=== PATIENT | male | born 1960 | race Caucasian/White ===

== ENCOUNTER 2016-11-16 15:11 | Observation (INO) ==
[2016-11-16] MEDS ORDERED: VANCOMYCIN PER PHARMACY IV ONE ×2 (15:27→19:40)
[2016-11-16] MEDS ORDERED: PIPERACILLIN SODIUM/TAZOBACTAM 4.5 GM in DEXTROSE 5% IN WATER 50 ML IV SCH ×2 (15:30→23:30)
[2016-11-16] MEDS ORDERED: VANCOMYCIN 2,000 MG in 0.9 % SODIUM CHLORIDE 500 ML IV ONE (16:00)
--- NOTE | 2016-11-16 16:05 | XRay Report ---
HISTORY: Reason for Exam:cellulitis FINDINGS: The lungs are clear. The heart size and pulmonary vascular normal. There is no pleural effusion. The right acromioclavicular joint is and there are spurs. This is a chronic stable finding. The heart is larger today than it was on 12/20/13. Current study was acquired PA and the current exam is a portable AP view which magnifies the heart. IMPRESSION: No evidence of pneumonia Interpreted and Authenticated by: Thad Levine 11/16/16
[2016-11-16 16:23] LABS: Mean Cell Volume 101.8 fL (80.0-100.0); Mean Corpuscular HGB Conc 32.4 g/dL (31.0-36.0); Platelet Count 378 K/mcL (140-440); RBC 3.53 M/mcL (4.50-5.90); Red Cell Distribution Width 14.9 % (11.5-14.5)
[2016-11-16] MEDS ORDERED: HYDROcodone/APAP 5/325MG TABLET PO ONE (16:42)
[2016-11-16 16:46] LABS: ALT/SGPT 8 U/l (0-40); Albumin 3.2 gm/dL (3.2-5.2); Albumin/Globulin Ratio 0.7 (1.0-2.3); Alkaline Phosphatase 133 U/L (39-117); Blood Urea Nitrogen 8 mg/dl (6-20); C-Reactive Protein 5.5 mg/dl (0.0-0.8)
[2016-11-16 16:54] LABS: Band Neutrophils % 1 % (0-10); Eosinophils % (Manual) 3 % (0-7); Lymphocytes % 22 % (15-49); Macrocytosis 1+ (NONE SEEN); Monocytes % (Manual) 8 % (1-9); Platelet Estimate NORMAL (NORMAL); RBC Morphology ABNORM (NORMAL); Segmented Neutrophils % 66 % (38-78)
[2016-11-16 17:01] LABS: Estimated Average Glucose(eAG) 82 mg/dL; Hemoglobin A1C 4.5 % HGB (4.0-6.0)
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
[2016-11-16] MEDS ORDERED: IOPAMIDOL 100 ML BOTTLE IV ONE (19:19)
[2016-11-16] MEDS ORDERED: BISACODYL 10 MG SUPP.RECT PR PRN (19:40)
[2016-11-16] MEDS ORDERED: ACETAMINOPHEN 325 MG TABLET PO PRN (19:40)
[2016-11-16] MEDS ORDERED: FLEETS ADULT ENEMA PR PRN (19:40)
[2016-11-16] MEDS ORDERED: MAGNESIUM HYDROXIDE 30 ML ORAL.SUSP PO PRN (19:40)
--- NOTE | 2016-11-16 19:40 | General Surgery Progress Note ---
Subjective Narrative: Note initiated : 11/16/16 at 7:37 pm Service Date, if different from initiated Date: [] Patient: Branden Espinosa 55 y/o M admitted on 11/16/16 for Pressure ulcers, Sent by wound care. Chief Complaint: [r high buttock pressure ulcer] Objective Temp Pulse Resp BP Pulse Ox 98.0 F 94 H 18 124/79 98 11/16/16 15:12 11/16/16 19:10 11/16/16 19:10 11/16/16 19:10 11/16/16 19:10 - General physical appearance obese (supermorbid obesity > 75 BMI) - Labs 11/16/16 15:25 11/16/16 15:25 Medical - PN: A/P - Time Spent With Patient Total time spent is greater than 50% in coordination of care (as documented) at patient's floor/unit and/or counseling patient: less than 15 minutes (1) Obesities, morbid Problem details: please see narrative Status: Chronic Assessment and plan: please see narrative Current Visit: Yes (2) Infected decubitus ulcer Problem details: please see narrative Status: Chronic Assessment and plan: please see narrative Current Visit: Yes - Narrative A/P Narrative: Preanesthetic evaluation: 1) This patient has a BMI >75, very little mobility. Very high risk for perioperative morbity/mortality 2) Pt requires extrawide bed. Unable to transport into OR due to narrow doorways. 3) Pt requires L lat decub positioning for surgical debridement of wound, pt refuses/is unable to lay on L side due to pressure on L chest, unclear as to exact reason (?dyspnea, chest pain, anxiety?) 4) Because pt is unable to lay on L side, it would be possible for patient to lean forward while seated to have adequate wound exposure. 5) I would recommend performing any necessary wound debridement in the patient' s room while on his specialty bed UNDER LOCAL ANESTHETIC ONLY. Outside the OR, this patient should not receive any sedation due to high risk for loss of airway. 6) If this patient is unable to tolerate debridement under local anesthesia due to pain or difficulty with positioning and requires general anesthesia, this patient should be transferred to [place] or [place] for adequate specialty equipment/facilities for the safe treatment of bariatric patients. 7) All of this has been discussed with the patient at length and in detail. He expresses understanding and agrees with my assessment and plan.
[2016-11-16] MEDS ORDERED: GABAPENTIN 300 MG CAPSULE PO PRN (21:00)
[2016-11-16] MEDS: FUROSEMIDE 40 MG TABLET PO SCH (21:42)
[2016-11-16] MEDS: CARVEDILOL 6.25 MG TABLET PO SCH (21:42)
[2016-11-16] MEDS: DOCUSATE SODIUM 100 MG CAPSULE PO SCH (21:43)
[2016-11-16] MEDS: HEPARIN 5,000 UNIT/ML VIAL SQ SCH (22:36)
[2016-11-16] MEDS ORDERED: PIPERACILLIN SODIUM/TAZOBACTAM 3.375 GM VIAL IV ONE (23:36)
[2016-11-17] MEDS: 0.9 % SODIUM CHLORIDE 10 ML SYRINGE IV SCH ×4 (00:02→23:22)
[2016-11-17] MEDS: PIPERACILLIN SODIUM/TAZOBACTAM 3.375 GM in DEXTROSE 5% IN WATER 50 ML IV SCH ×4 (00:02→17:27)
[2016-11-17 00:38] LABS: Appearance,Urine CLEAR; Bilirubin,Urine NEG (NEG); Color,Urine YELLOW; Glucose,Urine (UA) NEGATIVE (NEG); Leukocyte Esterase,Urine NEG /uL (NEG); Nitrate,Urine NEG (NEG); Protein,Urine NEG (NEG); Specific Gravity,Urine 1.018 (1.000-1.035); Urine Blood NEG mg/dL (<0.03); Urobilinogen,Urine NEG (NEG)
[2016-11-17] MEDS ORDERED: PIPERACILLIN SODIUM/TAZOBACTAM 3.375 GM VIAL IV ONE (05:52)
[2016-11-17] MEDS: VANCOMYCIN 2,000 MG in 0.9 % SODIUM CHLORIDE 500 ML IV ONE ×2 (06:00→06:04)
[2016-11-17] MEDS ORDERED: VANCOMYCIN 1 GM VIAL ONE (06:02)
[2016-11-17] MEDS ORDERED: VANCOMYCIN PER PHARMACY IV ONE (07:12)
[2016-11-17 07:13] LABS: Basophils # (Auto) 0 K/mcL (0.0-0.3); Basophils % (Auto) 0.4 % (0.0-2.0); Eosinophils # (Auto) 0.1 K/mcL (0.0-0.7); Eosinophils % (Auto) 1.9 % (0.0-7.0); Lymphocytes # (Auto) 1.3 K/mcL (1.5-4.8); Lymphocytes % (Auto) 19.3 % (15.5-49.0); Mean Cell Volume 100.8 fL (80.0-100.0); Mean Corpuscular HGB Conc 32.7 g/dL (31.0-36.0); Monocytes # (Auto) 0.6 K/mcL (0.1-0.9); Monocytes % (Auto) 8.4 % (1.0-9.0); Platelet Count 297 K/mcL (140-440); RBC 3.27 M/mcL (4.50-5.90); Red Cell Distribution Width 14.3 % (11.5-14.5)
[2016-11-17 07:24] LABS: ALT/SGPT 7 U/l (0-40); Albumin 2.8 gm/dL (3.2-5.2); Albumin/Globulin Ratio 0.8 (1.0-2.3); Alkaline Phosphatase 114 U/L (39-117); Bilirubin,Direct 0.3 mg/dL (0.0-0.3); Blood Urea Nitrogen 7 mg/dl (6-20); Gamma Glutamyl Transpeptidase 56 U/L (8-61); Magnesium 1.9 mg/dL (1.6-2.5); Phosphorous 2.6 mg/dL (2.7-4.5); Uric Acid 6.2 mg/dL (2.5-8.0)
--- NOTE | 2016-11-17 08:05 | XRay Report ---
HISTORY: Reason for Exam:PICC PLACEMENT FINDINGS: There is well-positioned PICC line placed to the left arm. The tip is in the superior vena cava near the boundary of the innominate vein. There is no pneumothorax. The diaphragms or outside of the field of view. Patient is also quite large resulting in x-ray scatter artifact. The heart is enlarged. The pulmonary vessels are mildly distended. A vague haziness is seen at the right lung base which could be an infiltrate or related to the suboptimal exposure. IMPRESSION: Well-positioned PICC line Interpreted and Authenticated by: Thad Levine 11/17/16
[2016-11-17] MEDS: HYDROcodone/APAP 10/325MG TABLET PO PRN ×3 (08:15→16:54)
[2016-11-17] MEDS: DOCUSATE SODIUM 100 MG CAPSULE PO SCH ×3 (08:22→19:56)
[2016-11-17] MEDS: LISINOPRIL 5 MG TABLET PO SCH (08:22)
[2016-11-17] MEDS: FUROSEMIDE 40 MG TABLET PO SCH ×3 (08:22→16:24)
[2016-11-17] MEDS: CARVEDILOL 6.25 MG TABLET PO SCH ×3 (08:22→17:28)
[2016-11-17] MEDS: HEPARIN 5,000 UNIT/ML VIAL SQ SCH ×3 (08:23→19:54)
[2016-11-17] MEDS ORDERED: VANCOMYCIN 1,500 MG in 0.9 % SODIUM CHLORIDE 500 ML IV SCH (09:00)
[2016-11-17] MEDS: GENTAMICIN SULFATE 40 MG, CLINDAMYCIN 300 MG, BACITRACIN 25,000 UNIT in SODIUM CHLORIDE... IRR SCH ×3 (12:19→20:12)
--- NOTE | 2016-11-17 12:57 | Internal Med Progress Note ---
Medical - PN: Subj Patient information: Note initiated : 11/17/16 at 12:55 pm Service Date, if different from initiated Date: [] Patient: Branden Espinosa 55 y/o M admitted on 11/16/16 for Infected Decubitus Ulcer Rt Buttock/Rt Lower Leg. Chief Complaint: [] Interval history: Patient seen examined, plan of care discussed with Pt and Dr Holt The patient admitted to the hospital for IV antibiotics and wound care, needing debridement under GA as per our wound application consultant. Anesthesia evalauted the patient and unfortunately the patient is not a candidate for general anesthesia , they also advised against sedation given his poor airwary Pt had a picc line placed for his IV antibiotics, and plan was discussed with Dr Holt who notes that the patient will need to be transferred to a higher facility. The patient will likely need LTAC for wound care. Will look up and evaluate if he can be transferred to LTAC for wound care and IV antibiotics as it seems the patient has failed outpatient treatment. Pertinent ROS: The patient did not sleep well Denies chest pain, shortness of breat Denies cough or dyspnea Denies abdominal pain, nausea or vomiting. - Constitutional Vitals: Vital Signs Temp Pulse Resp BP Pulse Ox 98.7 F 72 12 102/66 92 11/17/16 12:00 11/17/16 12:00 11/17/16 12:00 11/17/16 12:00 11/17/16 12:00 Period Temp Pulse Resp BP Sys/Andujar Pulse Ox Last 24 Hr 97.6 F-98.8 F 68-86 12-18 95-102/56-66 91-96 Intake and Output 11/16/16 11/17/16 11/17/16 21:59 05:59 13:59 Intake Total 0 / 0 Output Total 225 / 225 625 / 625 470 / 470 Balance -225 / 325 -625 / -625 -470 / -470 Weight 415 lb 12.8 oz Intake & Output: Intake & Output 11/16/16 11/17/16 11/17/16 21:59 05:59 13:59 Intake Total 0 / 0 Output Total 225 / 225 625 / 625 470 / 470 Balance -225 / 325 -625 / -625 -470 / -470 Weight 415 lb 12.8 oz Intake: Oral 0 / 0 Output: Void Amount 225 / 225 625 / 625 470 / 470 General appearance: morbidly obese, no acute distress - Head Head exam: Present: atraumatic, normal inspection, normocephalic - Respiratory Respiratory exam: Present: normal respiratory exam. Absent: rhonchi, stridor, wheezes - Cardiovascular Cardiovascular exam: Present: normal rate and rhythm, irregular rhythm, +S1, +S2 - GI/Abdominal GI/Abdominal exam: Present: normal bowel sounds, soft - Neurological Exam Neurological exam: Present: alert, CN II-XII intact, oriented X3. Absent: motor sensory deficit Medical - PN: Obj Da - Labs CBC & Chem 7: 11/17/16 05:30 11/17/16 05:30 Labs: Abnormal Lab Results 11/17/16 11/17/16 11/17/16 05:30 05:30 05:30 RBC 3.27 L Hgb 10.8 L Hct 32.9 L MCV 100.8 H Lymph # 1.3 L PT 15.7 H INR 1.2 H Phosphorus 2.6 L Albumin 2.8 L Albumin/Globulin Ratio 0.8 L Meds: Medications Acetaminophen (Tylenol) 650 mg PO Q6HP PRN PRN Reason: PAIN/FEVER > 101 Acetaminophen/Hydrocodone Bitart ([place] 10/325mg) 2 tab PO Q6HP PRN PRN Reason: Pain Last Admin: 11/17/16 12:18 Dose: 2 tab Bisacodyl (Dulcolax) 10 mg NC Q2-3DAYS PRN PRN Reason: Constipation Carvedilol (Coreg) 12.[address] [facility] Last Admin: 11/17/16 08:22 Dose: 12.5 mg Digoxin (Lanoxin) 125 mcg PO DAILY@1400 [facility] Docusate Sodium (Colace) [address] [facility] Last Admin: 11/17/16 08:22 Dose: 100 mg Furosemide (Lasix) [address] [facility] Last Admin: 11/17/16 10:40 Dose: Not Given Gabapentin (Neurontin) 600 mg PO TIDP PRN PRN Reason: NERVE PAIN Heparin Sodium (Porcine) (Heparin) 5,[address] [facility] Last Admin: 11/17/16 12:19 Dose: 5,000 unit Piperacillin Sod/Tazobactam (Sod 3.375 gm/ Dextrose) 50 mls @ 100 mls/hr IV Q6H [facility] Last Admin: 11/17/16 12:19 Dose: 100 mls/hr Gentamicin Sulfate 40 mg/Clindamycin Phosphate 300 mg/Bacitracin 25,000 unit/ Sodium Chloride 503 mls @ 0 mls/hr IRR TID ANGELA PRN Reason: As Directed Last Admin: 11/17/16 12:19 Dose: 1 mls/hr Lisinopril (Zestril) 2.[address] [facility] Last Admin: 11/17/16 08:22 Dose: 2.5 mg Magnesium Hydroxide (Milk Of Magnesia) 30 ml PO DAILYP PRN PRN Reason: Constipation Sodium Biphosphate/Sodium Phosphate (Fleets Adult) 1 dose NC Q3-4DAYS PRN PRN Reason: Constipation Sodium Chloride (Saline Flush) [address] [facility] Last Admin: 11/17/16 06:01 Dose: 10 ml Medical - PN: A/P - Time Spent With Patient Total time spent is greater than 50% in coordination of care (as documented) at patient's floor/unit and/or counseling patient: (1) Infected decubitus ulcer Status: Acute Assessment and plan: Patient in obs status PICC In place continue vanco and zosyn plan to transfer to LTAC for wound care. Current Visit: Yes (2) Atrial fibrillation Status: Acute Assessment and plan: INR subtherapeutic, supposed to be on coumadin, he takes 2.5mg once daily, he was supposed to see coumadin clinic in [facility], but missed his appointment and therefore has not been following up with anyone on this matter. HE was giong to follow up with them next week Presently given low INR start on coumadin at 3mg per day check INR daily Continue heparin for now, till INR is therapeutic. HR is stable on coreg and digoxin. Dose of digoxin reduced in light of levels being at 1.4 Current Visit: No (3) Hypertension, essential Status: Chronic Assessment and plan: BP is stable. continue coreg and lisinopril. Current Visit: No - Narrative A/P Narrative: Pt is obs status needs IV antibiotics Daily wound care Will transfer to LTAC facility as per discussions with Dr Holt. Medical - PN: Qual - Stroke Symptom Onset Unknown: No - VTE Deep Vein Thrombosis/Pulmonary Embolism Present on Admission: No
--- NOTE | 2016-11-17 13:00 | General Surgery Consult Note ---
History of Present Illness Patient information: Note initiated : 11/17/16 at 12:46 pm Service Date, if different from initiated Date: [] Patient: Branden Espinosa 55 y/o M admitted on 11/16/16 for Infected Decubitus Ulcer Rt Buttock/Rt Lower Leg. Chief Complaint: []I know this patient well. [facility] yesterday. 55/M Super Morbid gentleman. Grade 3 deep infected and draining pressure ulcer right buttock and Chronic open wound Right leg lower third after previous lymphedema related surgical procedures in past. There have been developments and an interval change in his condition, with foul mal odorous drainage from the buttock wound. OUT PATIENT wound care has failed. I referred him to the ER. Subsequently, admitted to the hospital for complicated skin and skin structure infection, SEPSIS. Started on IV antibiotics after PICC line insertion. LOCAL wound care was carried out in presence of nursing staff. Anesthesia services consulted. S/B Justin Yun, Anesthesiologist. It is NOT possible to provide further multidisciplinary care or administer general anesthesia in OR due to his comorbidities. Bed confined, Super morbid, BMI > 75.Unable to sit or roll over. At this time his wounds were cleansed with NS and GCB antibiotic soaked wet dry dressings applies and care discussed with nursing staff. THIS PATIENT TO BE TRANSFERRED to a facility with higher level of care in [facility]. I will speak with Clinical Recruiter or Surgeon or Accepting Physician about this patient and his current problema nd co morbidities. Medications and Allergies Allergies Allergy/AdvReac Type Severity Reaction Status Date / Time No Known Drug Allergies Allergy Verified 11/16/16 15:17 Exam Temp Pulse Resp BP Pulse Ox 98.7 F 72 12 102/66 92 11/17/16 12:00 11/17/16 12:00 11/17/16 12:00 11/17/16 12:00 11/17/16 12:00 - General physical appearance well nourished, no distress, other ( Super morbid obese. BMI > 75. Sedentary WC bound or Bed confined. Unable to turn , stand or rollover by himself. ) - Eyes PERRL, normal ocular movement - ENT normal pinna, normal nares, normal mucosa, no hearing loss, no congestion - Head Head exam IM: Present: atraumatic, normal inspection, normocephalic - Neck no masses, no bruits, trachea midline, no lymphadectomy, no venous distension - Cardiovascular Cardiovascular exam IM: Present: normal rate and rhythm - Respiratory normal expansion, normal respiratory effort, clear to auscultation - Abdomen Abdomen: Present: soft, non tender, bowel sounds - Integumentary Present: other (Pressure ulcer Right posterior buttock 8 x 7 x 8 CM. Foul mal odorous drainage SUrrounding periwound erthema. NO Crepitus. CHRONIC non healing wound right posterior leg lower 1/3, 7 x 4 x3 CM Pale granulations with eschar. ) - Neurologic Present: normal coordination, other (No focal neurological deficits,) - Musculoskeletal Present: other (w/c bound or bed confined, ) - Psychiatric Present: oriented to time, oriented to person, oriented to place, speech is normal, memory intact Results - Labs 11/17/16 05:30 11/17/16 05:30 Abnormal lab results 11/17/16 11/17/16 11/17/16 Range/Units 05:30 05:30 05:30 RBC 3.27 L (4.50-5.90) M/mcL Hgb 10.8 L (13.5-16.5) g/dL Hct 32.9 L (41.0-55.0) % MCV 100.8 H (80.0-100.0) fL Lymph # 1.3 L (1.5-4.8) K/mcL PT 15.7 H (11.9-14.5) sec INR 1.2 H (0.9-1.1) Phosphorus 2.6 L (2.7-4.5) mg/dL Albumin 2.8 L (3.2-5.2) gm/dL Albumin/Globulin Ratio 0.8 L (1.0-2.3) Diabetes panel 11/17/16 Range/Units 05:30 Sodium 134 (133-145) mmol/L Potassium 4.7 (3.3-5.1) mmol/L Chloride 99 (96-108) mmol/L Carbon Dioxide 26 (22-30) mmol/L BUN 7 (6-20) mg/dl Creatinine 0.8 (0.7-1.2) mg/dl Glucose 86 (70-105) mg/dL Calcium 8.9 (8.6-10.4) mg/dl AST 13 (0-37) U/l ALT 7 (0-40) U/l Alkaline Phosphatase 114 (39-117) U/L Total Protein 6.5 (5.9-8.4) gm/dL Albumin 2.8 L (3.2-5.2) gm/dL Triglycerides 135 (<150) mg/dl Calcium panel 11/17/16 Range/Units 05:30 Calcium 8.9 (8.6-10.4) mg/dl Phosphorus 2.6 L (2.7-4.5) mg/dL Albumin 2.8 L (3.2-5.2) gm/dL Pituitary panel 11/17/16 Range/Units 05:30 Sodium 134 (133-145) mmol/L Potassium 4.7 (3.3-5.1) mmol/L Chloride 99 (96-108) mmol/L Carbon Dioxide 26 (22-30) mmol/L BUN 7 (6-20) mg/dl Creatinine 0.8 (0.7-1.2) mg/dl Glucose 86 (70-105) mg/dL Calcium 8.9 (8.6-10.4) mg/dl Adrenal panel 11/17/16 Range/Units 05:30 Sodium 134 (133-145) mmol/L Potassium 4.7 (3.3-5.1) mmol/L Chloride 99 (96-108) mmol/L Carbon Dioxide 26 (22-30) mmol/L BUN 7 (6-20) mg/dl Creatinine 0.8 (0.7-1.2) mg/dl Glucose 86 (70-105) mg/dL Calcium 8.9 (8.6-10.4) mg/dl Total Bilirubin 0.7 (0.0-1.0) mg/dL AST 13 (0-37) U/l ALT 7 (0-40) U/l Alkaline Phosphatase 114 (39-117) U/L Total Protein 6.5 (5.9-8.4) gm/dL Albumin 2.8 L (3.2-5.2) gm/dL All other labs normal. Assessment and Plan (1) Decubitus Ulcer See detailed note above. Recommend that patient be transferred to [place] or [facility] for higher level of care. I will speak with accepting Physician at the facility. I have requested VAIBHAV, RN CM / SW to enquire and connect me to the appropriate facility and involved accepting physician. Status: Acute Priority: High Comment: NEEDS transfer to higher level of care for co ordinated wound care, surgical debridemetn, ID Consult and Physical Therapy Qualifiers: Pressure ulcer location: buttock Pressure ulcer stage: stage 3 Laterality : right Qualified Code(s): L89.313 - Pressure ulcer of right buttock, stage 3 (2) Ulcer of right lower extremity with fat layer exposed Status: Chronic Priority: Medium Comment: Palliative wound care. Clean with NS and apply antibiotic soaked wet / dry dressing changes three times a day.
[2016-11-17] MEDS: DIGOXIN 125 MCG TABLET PO SCH (14:07)
[2016-11-17] MEDS ORDERED: VANCOMYCIN 2,000 MG in 0.9 % SODIUM CHLORIDE 500 ML IV SCH (21:00)
[2016-11-18] MEDS: PIPERACILLIN SODIUM/TAZOBACTAM 3.375 GM in DEXTROSE 5% IN WATER 50 ML IV SCH ×4 (00:44→17:54)
[2016-11-18] MEDS: 0.9 % SODIUM CHLORIDE 10 ML SYRINGE IV SCH ×2 (05:40→12:07)
[2016-11-18] MEDS: HYDROcodone/APAP 10/325MG TABLET PO PRN ×4 (06:22→21:13)
[2016-11-18] MEDS: GENTAMICIN SULFATE 40 MG, CLINDAMYCIN 300 MG, BACITRACIN 25,000 UNIT in SODIUM CHLORIDE... IRR SCH ×3 (06:30→21:01)
[2016-11-18 07:39] LABS: Basophils # (Auto) 0 K/mcL (0.0-0.3); Basophils % (Auto) 0.6 % (0.0-2.0); Eosinophils # (Auto) 0.1 K/mcL (0.0-0.7); Granulocytes % (Auto) 60.9 % (38.0-78.0); Lymphocytes # (Auto) 1.3 K/mcL (1.5-4.8); Mean Cell Volume 99.9 fL (80.0-100.0); Mean Corpuscular HGB Conc 33.1 g/dL (31.0-36.0); Mean Corpuscular Hemoglobin 33.1 pg (26.0-34.0); Monocytes # (Auto) 0.8 K/mcL (0.1-0.9); Monocytes % (Auto) 13.5 % (1.0-9.0); Platelet Count 285 K/mcL (140-440); Red Cell Distribution Width 14.2 % (11.5-14.5)
[2016-11-18 08:41] LABS: ALT/SGPT 6 U/l (0-40); Albumin 2.7 gm/dL (3.2-5.2); Albumin/Globulin Ratio 0.7 (1.0-2.3); Alkaline Phosphatase 108 U/L (39-117); Bilirubin,Direct 0.3 mg/dL (0.0-0.3); Blood Urea Nitrogen 6 mg/dl (6-20); Gamma Glutamyl Transpeptidase 57 U/L (8-61); Phosphorous 2.7 mg/dL (2.7-4.5); Uric Acid 5.4 mg/dL (2.5-8.0)
[2016-11-18] MEDS: HEPARIN 5,000 UNIT/ML VIAL SQ SCH ×2 (08:48→21:00)
[2016-11-18] MEDS: VANCOMYCIN 1,500 MG in 0.9 % SODIUM CHLORIDE 500 ML IV SCH ×2 (08:48→21:16)
[2016-11-18] MEDS: DOCUSATE SODIUM 100 MG CAPSULE PO SCH ×2 (08:49→21:00)
[2016-11-18] MEDS: CARVEDILOL 6.25 MG TABLET PO SCH ×2 (08:49→16:59)
[2016-11-18] MEDS: LISINOPRIL 5 MG TABLET PO SCH (08:53)
[2016-11-18] MEDS: FUROSEMIDE 40 MG TABLET PO SCH ×2 (08:53→17:41)
--- NOTE | 2016-11-18 09:43 | General Surgery Progress Note ---
Subjective Patient reports: no new complaints, other Narrative: Note initiated : 11/18/16 at 9:38 am Service Date, if different from initiated Date: [] Patient: Branden Espinosa 55 y/o M admitted on 11/16/16 for Infected Decubitus Ulcer Rt Buttock/Rt Lower Leg. Chief Complaint: [] Patient had an uneventful night. ON IV antibiotics and getting local wound care with dressing changes tid Objective Temp Pulse Resp BP Pulse Ox 98.9 F 62 12 112/71 93 11/18/16 07:11 11/18/16 07:11 11/18/16 07:11 11/18/16 07:11 11/18/16 07:11 AVSS. HD Stable. No changes FELI L/E wounds right buttock and leg . No acute changes - Additional Data Intake & Output - Last 24 hours: Intake & Output 11/16/16 11/17/16 11/18/16 11/19/16 05:59 05:59 05:59 05:59 Intake Total 0 / 550 450 / 450 Output Total 850 / 850 2295 / 2295 Balance -850 / -300 -1845 / -1845 Weight 415 lb 12.8 oz 411 lb 9.6 oz - Labs 11/18/16 05:23 11/18/16 05:23 Diabetes panel 11/18/16 Range/Units 05:23 Sodium 137 (133-145) mmol/L Potassium 4.2 (3.3-5.1) mmol/L Chloride 101 (96-108) mmol/L Carbon Dioxide 26 (22-30) mmol/L BUN 6 (6-20) mg/dl Creatinine 0.7 (0.7-1.2) mg/dl Glucose 81 (70-105) mg/dL Calcium 8.4 L (8.6-10.4) mg/dl AST 13 (0-37) U/l ALT 6 (0-40) U/l Alkaline Phosphatase 108 (39-117) U/L Total Protein 6.7 (5.9-8.4) gm/dL Albumin 2.7 L (3.2-5.2) gm/dL Triglycerides 112 (<150) mg/dl Calcium panel 11/18/16 Range/Units 05:23 Calcium 8.4 L (8.6-10.4) mg/dl Phosphorus 2.7 (2.7-4.5) mg/dL Albumin 2.7 L (3.2-5.2) gm/dL Pituitary panel 11/18/16 Range/Units 05:23 Sodium 137 (133-145) mmol/L Potassium 4.2 (3.3-5.1) mmol/L Chloride 101 (96-108) mmol/L Carbon Dioxide 26 (22-30) mmol/L BUN 6 (6-20) mg/dl Creatinine 0.7 (0.7-1.2) mg/dl Glucose 81 (70-105) mg/dL Calcium 8.4 L (8.6-10.4) mg/dl Adrenal panel 11/18/16 Range/Units 05:23 Sodium 137 (133-145) mmol/L Potassium 4.2 (3.3-5.1) mmol/L Chloride 101 (96-108) mmol/L Carbon Dioxide 26 (22-30) mmol/L BUN 6 (6-20) mg/dl Creatinine 0.7 (0.7-1.2) mg/dl Glucose 81 (70-105) mg/dL Calcium 8.4 L (8.6-10.4) mg/dl Total Bilirubin 0.6 (0.0-1.0) mg/dL AST 13 (0-37) U/l ALT 6 (0-40) U/l Alkaline Phosphatase 108 (39-117) U/L Total Protein 6.7 (5.9-8.4) gm/dL Albumin 2.7 L (3.2-5.2) gm/dL Medical - PN: A/P - Time Spent With Patient Total time spent is greater than 50% in coordination of care (as documented) at patient's floor/unit and/or counseling patient: Progressing well. O K for transfer to [facility] for further higher level of care and rehab. TO be transferred to [facility] for further management. Called Dr. OSBORNE Receiving MD at [facility] and waiting for call back, Spoke with Ava CUTLER at [facility] 25 - 35 minutes (1) Decubitus Ulcer Problem details: NEEDS transfer to higher level of care for co ordinated wound care, surgical debridemetn, ID Consult and Physical Therapy Status: Acute Current Visit: Yes (2) Ulcer of right lower extremity with fat layer exposed Problem details: Palliative wound care. Clean with NS and apply antibiotic soaked wet / dry dressing changes three times a day. Status: Chronic Current Visit: Yes
[2016-11-18] MEDS ORDERED: WARFARIN 3 MG TABLET PO SCH ×2 (14:00)
[2016-11-18] MEDS: DIGOXIN 125 MCG TABLET PO SCH (14:22)
[2016-11-18] MEDS ORDERED: WARFARIN 5 MG TABLET PO SCH (14:30)
[2016-11-18] MEDS ORDERED: WARFARIN 5 MG TABLET PO ONE (14:30)
--- NOTE | 2016-11-18 16:07 | Internal Med Progress Note ---
Medical - PN: Subj Patient information: Note initiated : 11/18/16 at 4:05 pm Service Date, if different from initiated Date: [] Patient: Branden Espinosa 55 y/o M admitted on 11/16/16 for Infected Decubitus Ulcer Rt Buttock/Rt Lower Leg. Chief Complaint: [] Interval history: The patient seen examined, no acute overnight events. plan was to X wen the patient to LTAC facility for wound care, it seems Dr Samano at [facility] has accepted the patient, unfortunately we do not have clearance from the patients insurance company to go ahead with the plan. Plan is to transfer patient as soon as insurance agrees. In the chance that insurance denies the patient LTAC wound services, then santiago try to xfer to an acute care facility. Patients condition otherwise has not changed. MIcrobiology reviwed, gram neg bacillus, STaph aureus, presently being adequately covered. Pertinent ROS: no chest pain, shortness of breath no cough, no hemoptysis no abdominal pain, diarrhea. - Constitutional Vitals: Vital Signs Temp Pulse Resp BP Pulse Ox 98.3 F 87 12 121/76 94 11/18/16 12:00 11/18/16 12:00 11/18/16 12:00 11/18/16 12:00 11/18/16 12:00 Period Temp Pulse Resp BP Sys/Andujar Pulse Ox Last 24 Hr 97.6 F-98.9 F 62-89 12-12 96-121/60-76 92-94 Intake and Output 11/18/16 11/18/16 11/18/16 05:59 13:59 21:59 Intake Total 350 / 350 410 / 410 Output Total 1325 / 1325 200 / 200 Balance -975 / -975 210 / 210 Intake & Output: Intake & Output 11/18/16 11/18/16 11/18/16 05:59 13:59 21:59 Intake Total 350 / 350 410 / 410 Output Total 1325 / 1325 200 / 200 Balance -975 / -975 210 / 210 Intake: IV 50 / 50 50 / 50 Dextrose 5% in Water 50 50 / 50 50 / 50 ml @ 100 mls/hr IV Q6H ANGELA with Zosyn 3.375 gm Rx#:[id number] Oral 300 / 300 360 / 360 Output: Void Amount 1325 / 1325 200 / 200 Other: Meal Breakfast Percent of Meal Consumed 50% Feeding Ability Assist with Tray Set Up # Bowel Movements 1 - Head Head exam: Present: atraumatic, normal inspection - Eye Eye exam: Absent: periorbital swelling, periorbital tenderness, scleral icterus - Neck Neck exam: Present: normal inspection - Respiratory Respiratory exam: Present: normal respiratory exam. Absent: accessory muscle use, chest wall tenderness, stridor, wheezes - Cardiovascular Cardiovascular exam: Present: normal rate and rhythm, +S1, +S2 - GI/Abdominal GI/Abdominal exam: Present: normal bowel sounds, soft. Absent: rigid, tenderness - Neurological Exam Neurological exam: Present: alert, CN II-XII intact, oriented X3. Absent: motor sensory deficit Medical - PN: Obj Da - Labs CBC & Chem 7: 11/18/16 05:23 11/18/16 05:23 Labs: Abnormal Lab Results 11/18/16 11/18/16 11/18/16 05:23 05:23 05:23 RBC 3.20 L Hgb 10.6 L Hct 32.0 L MCV [place] % (Auto) 13.5 H Lymph # 1.3 L PT 16.3 H INR 1.3 H Calcium 8.4 L Phosphorus Albumin 2.7 L Globulin 4.0 H Albumin/Globulin Ratio 0.7 L Vancomycin Trough 11/17/16 11/17/16 11/17/16 17:30 05:30 05:30 RBC Hgb Hct MCV [place] % (Auto) Lymph # PT 15.7 H INR 1.2 H Calcium Phosphorus 2.6 L Albumin 2.8 L Globulin Albumin/Globulin Ratio 0.8 L Vancomycin Trough 16.9 H 11/17/16 05:30 RBC 3.27 L Hgb 10.8 L Hct 32.9 L MCV 100.8 H [place] % (Auto) Lymph # 1.3 L PT INR Calcium Phosphorus Albumin Globulin Albumin/Globulin Ratio Vancomycin Trough Meds: Medications Acetaminophen (Tylenol) 650 mg PO Q6HP PRN PRN Reason: PAIN/FEVER > 101 Acetaminophen/Hydrocodone Bitart ([place] 10/325mg) 2 tab PO Q6HP PRN PRN Reason: Pain Last Admin: 11/18/16 11:05 Dose: 2 tab Bisacodyl (Dulcolax) 10 mg [place] Q2-3DAYS PRN PRN Reason: Constipation Carvedilol (Coreg) 12.5 mg PO BIDCC [facility] Last Admin: 11/18/16 08:49 Dose: 6.25 mg Digoxin (Lanoxin) 125 mcg PO DAILY@1400 [facility] Last Admin: 11/18/16 14:22 Dose: 125 mcg Docusate Sodium (Colace) 100 mg PO BID [facility] Last Admin: 11/18/16 08:49 Dose: 100 mg Furosemide (Lasix) 40 mg PO BIDD [facility] Last Admin: 11/18/16 08:53 Dose: Not Given Gabapentin (Neurontin) 600 mg PO TIDP PRN PRN Reason: NERVE PAIN Heparin Sodium (Porcine) (Heparin) 5,000 unit SQ Q12 [facility] Last Admin: 11/18/16 08:48 Dose: 5,000 unit Piperacillin Sod/Tazobactam (Sod 3.375 gm/ Dextrose) 50 mls @ 100 mls/hr IV Q6H [facility] Last Admin: 11/18/16 12:06 Dose: 100 mls/hr Gentamicin Sulfate 40 mg/Clindamycin Phosphate 300 mg/Bacitracin 25,000 unit/ Sodium Chloride 503 mls @ 0 mls/hr IRR TID [facility] PRN Reason: As Directed Last Admin: 11/18/16 12:00 Dose: 1 mls/hr Vancomycin HCl 1,500 mg/ (Sodium Chloride) 500 mls @ 333.3 mls/hr IV Q12 [facility] Last Admin: 11/18/16 08:48 Dose: 333.3 mls/hr Lisinopril (Zestril) 2.5 mg PO DAILY [facility] Last Admin: 11/18/16 08:53 Dose: Not Given Magnesium Hydroxide (Milk Of Magnesia) 30 ml PO DAILYP PRN PRN Reason: Constipation Sodium Biphosphate/Sodium Phosphate (Fleets Adult) 1 dose [place] Q3-4DAYS PRN PRN Reason: Constipation Sodium Chloride (Saline Flush) 10 ml IV Q8 [facility] Last Admin: 11/18/16 12:07 Dose: 10 ml Warfarin Sodium (Coumadin) 5 mg PO DAILY@1400 [facility] Medical - PN: A/P - Time Spent With Patient Total time spent is greater than 50% in coordination of care (as documented) at patient's floor/unit and/or counseling patient: (1) Infected decubitus ulcer Status: Acute Assessment and plan: Patient in obs status PICC In place continue vanco and zosyn plan to transfer to LTAC for wound care, once insurance approves. Current Visit: Yes (2) Atrial fibrillation Status: Acute Assessment and plan: INR subtherapeutic, increase coumadin dose to 5mg once daily Continue heparin for now, till INR is therapeutic. HR is stable on coreg and digoxin. Dose of digoxin reduced in light of levels being at 1.4 Current Visit: No (3) Hypertension, essential Status: Chronic Assessment and plan: BP is stable. continue coreg and lisinopril. Current Visit: No Medical - PN: Qual - Stroke Symptom Onset Unknown: No - VTE Deep Vein Thrombosis/Pulmonary Embolism Present on Admission: No
[2016-11-19] MEDS: PIPERACILLIN SODIUM/TAZOBACTAM 3.375 GM in DEXTROSE 5% IN WATER 50 ML IV SCH ×4 (00:33→17:50)
[2016-11-19] MEDS: 0.9 % SODIUM CHLORIDE 10 ML SYRINGE IV SCH ×3 (00:33→15:43)
[2016-11-19] MEDS: HYDROcodone/APAP 10/325MG TABLET PO PRN ×4 (04:38→21:29)
[2016-11-19 06:45] LABS: Basophils # (Auto) 0 K/mcL (0.0-0.3); Basophils % (Auto) 0.5 % (0.0-2.0); Eosinophils # (Auto) 0.3 K/mcL (0.0-0.7); Eosinophils % (Auto) 4.8 % (0.0-7.0); Granulocytes % (Auto) 65.9 % (38.0-78.0); Lymphocytes # (Auto) 1.1 K/mcL (1.5-4.8); Lymphocytes % (Auto) 20.1 % (15.5-49.0); Mean Cell Volume 101.6 fL (80.0-100.0); Mean Corpuscular HGB Conc 32.8 g/dL (31.0-36.0); Mean Corpuscular Hemoglobin 33.3 pg (26.0-34.0); Monocytes # (Auto) 0.5 K/mcL (0.1-0.9); Monocytes % (Auto) 8.7 % (1.0-9.0); Platelet Count 289 K/mcL (140-440)
[2016-11-19 07:30] LABS: ALT/SGPT 6 U/l (0-40); Albumin 2.7 gm/dL (3.2-5.2); Albumin/Globulin Ratio 0.8 (1.0-2.3); Alkaline Phosphatase 107 U/L (39-117); Bilirubin,Direct 0.3 mg/dL (0.0-0.3); Blood Urea Nitrogen 6 mg/dl (6-20); Gamma Glutamyl Transpeptidase 58 U/L (8-61); Phosphorous 2.7 mg/dL (2.7-4.5); Uric Acid 5.1 mg/dL (2.5-8.0)
[2016-11-19] MEDS: HEPARIN 5,000 UNIT/ML VIAL SQ SCH ×2 (08:35→21:11)
[2016-11-19] MEDS: LISINOPRIL 5 MG TABLET PO SCH (08:35)
[2016-11-19] MEDS: DOCUSATE SODIUM 100 MG CAPSULE PO SCH ×3 (08:35→21:11)
[2016-11-19] MEDS: FUROSEMIDE 40 MG TABLET PO SCH ×3 (08:36→16:15)
[2016-11-19] MEDS: CARVEDILOL 6.25 MG TABLET PO SCH ×3 (08:36→17:51)
[2016-11-19] MEDS: GENTAMICIN SULFATE 40 MG, CLINDAMYCIN 300 MG, BACITRACIN 25,000 UNIT in SODIUM CHLORIDE... IRR SCH ×3 (11:42→21:11)
--- NOTE | 2016-11-19 13:54 | Internal Med Progress Note ---
Medical - PN: Subj Patient information: Note initiated : 11/19/16 at 1:25 pm Service Date, if different from initiated Date: [] Patient: Branden Espinosa 55 y/o M admitted on 11/16/16 for Infected Decubitus Ulcer Rt Buttock/Rt Lower Leg. Chief Complaint: [] Interval history: The aptient seen examined, plan of care discussed with Case management and wound care. The patient has no complaints, lying comfortably in bed. The patient was supposed to go to [facility] facility, unfortunately his insurance denied the service, the patient is presently under obs status and does not meet inpatient criteria. he is very high risk for GA for debridement. T - Constitutional Vitals: Vital Signs Temp Pulse Resp BP Pulse Ox 97.6 F 75 18 103/64 94 11/19/16 11:06 11/19/16 11:06 11/19/16 11:06 11/19/16 11:06 11/19/16 11:06 Period Temp Pulse Resp BP Sys/Andujar Pulse Ox Last 24 Hr 97.1 F-98.7 F 63-81 12-20 95-122/61-70 91-95 Intake and Output 11/18/16 11/19/16 11/19/16 21:59 05:59 13:59 Intake Total 290 / 290 300 / 300 50 / 50 Output Total 180 / 180 850 / 850 Balance 110 / 110 -550 / -550 50 / 50 Weight 409 lb Intake & Output: Intake & Output 11/18/16 11/19/16 11/19/16 21:59 05:59 13:59 Intake Total 290 / 290 300 / 300 50 / 50 Output Total 180 / 180 850 / 850 Balance 110 / 110 -550 / -550 50 / 50 Weight 409 lb Intake: IV 50 / 50 50 / 50 50 / 50 Dextrose 5% in Water 50 50 / 50 50 / 50 50 / 50 ml @ 100 mls/hr IV Q6H ANGELA with Zosyn 3.375 gm Rx#:[id number] Oral 240 / 240 250 / 250 Output: Void Amount 180 / 180 850 / 850 Other: Meal Dinner Percent of Meal Consumed 50% Feeding Ability Assist with Tray Set Up # Bowel Movements 1 1 Medical - PN: Obj Da - Labs CBC & Chem 7: 11/19/16 05:15 11/19/16 05:15 Labs: Abnormal Lab Results 11/19/16 11/19/16 11/19/16 07:59 05:15 05:15 RBC Hgb Hct MCV RDW [place] % (Auto) Lymph # PT 16.4 H INR 1.3 H Calcium 8.2 L Phosphorus Albumin 2.7 L Globulin Albumin/Globulin Ratio 0.8 L Vancomycin Trough 24.0 H* 11/19/16 11/18/16 11/18/16 05:15 05:23 05:23 RBC 3.20 L Hgb 10.7 L Hct 32.5 L MCV 101.6 H RDW 15.0 H [place] % (Auto) Lymph # 1.1 L PT 16.3 H INR 1.3 H Calcium 8.4 L Phosphorus Albumin 2.7 L Globulin 4.0 H Albumin/Globulin Ratio 0.7 L Vancomycin Trough 11/18/16 11/17/16 11/17/16 05:23 17:30 05:30 RBC 3.20 L Hgb 10.6 L Hct 32.0 L MCV RDW [place] % (Auto) 13.5 H Lymph # 1.3 L PT INR Calcium Phosphorus 2.6 L Albumin 2.8 L Globulin Albumin/Globulin Ratio 0.8 L Vancomycin Trough 16.9 H 11/17/16 11/17/16 05:30 05:30 RBC 3.27 L Hgb 10.8 L Hct 32.9 L MCV 100.8 H RDW [place] % (Auto) Lymph # 1.3 L PT 15.7 H INR 1.2 H Calcium Phosphorus Albumin Globulin Albumin/Globulin Ratio Vancomycin Trough Meds: Medications Acetaminophen (Tylenol) 650 mg PO Q6HP PRN PRN Reason: PAIN/FEVER > 101 Acetaminophen/Hydrocodone Bitart ([place] 10/325mg) 2 tab PO Q6HP PRN PRN Reason: Pain Last Admin: 11/19/16 08:57 Dose: 2 tab Bisacodyl (Dulcolax) 10 mg [place] Q2-3DAYS PRN PRN Reason: Constipation [facility] Last Admin: 11/19/16 08:36 Dose: 12.5 mg Digoxin (Lanoxin) 125 mcg PO DAILY@1400 [facility] Last Admin: 11/18/16 14:22 Dose: 125 mcg Docusate Sodium (Colace) 100 mg PO BID [facility] Last Admin: 11/19/16 08:54 Dose: Not Given Furosemide (Lasix) 40 mg PO BIDD [facility] Last Admin: 11/19/16 08:51 Dose: Not Given Gabapentin (Neurontin) 600 mg PO TIDP PRN PRN Reason: NERVE PAIN Heparin Sodium (Porcine) (Heparin) 5,000 unit SQ Q12 [facility] Last Admin: 11/19/16 08:35 Dose: 5,000 unit Piperacillin Sod/Tazobactam (Sod 3.375 gm/ Dextrose) 50 mls @ 100 mls/hr IV Q6H [facility] Last Admin: 11/19/16 12:31 Dose: 100 mls/hr Gentamicin Sulfate 40 mg/Clindamycin Phosphate 300 mg/Bacitracin 25,000 unit/ Sodium Chloride 503 mls @ 0 mls/hr IRR TID [facility] PRN Reason: As Directed Last Admin: 11/19/16 11:42 Dose: 100 mls/hr Lisinopril (Zestril) 2.5 mg PO DAILY [facility] Last Admin: 11/19/16 08:35 Dose: 2.5 mg Magnesium Hydroxide (Milk Of Magnesia) 30 ml PO DAILYP PRN PRN Reason: Constipation Sodium Biphosphate/Sodium Phosphate (Fleets Adult) 1 dose [place] Q3-4DAYS PRN PRN Reason: Constipation Sodium Chloride (Saline Flush) 10 ml IV Q8 [facility] Last Admin: 11/19/16 05:35 Dose: 10 ml Warfarin Sodium (Coumadin) 5 mg PO DAILY@1400 [facility] Medical - PN: A/P - Time Spent With Patient Total time spent is greater than 50% in coordination of care (as documented) at patient's floor/unit and/or counseling patient: (1) Infected decubitus ulcer Status: Acute Assessment and plan: Patient in obs status PICC In place continue vanco and zosyn plan to transfer to LTAC for wound care, once insurance approves. Current Visit: Yes (2) Atrial fibrillation Status: Acute Assessment and plan: INR subtherapeutic, increase coumadin dose to 5mg once daily Continue heparin for now, till INR is therapeutic. HR is stable on coreg and digoxin. Dose of digoxin reduced in light of levels being at 1.4 Current Visit: No (3) Hypertension, essential Status: Chronic Assessment and plan: BP is stable. continue coreg and lisinopril. Current Visit: No Medical - PN: Qual - Stroke Symptom Onset Unknown: No - VTE Deep Vein Thrombosis/Pulmonary Embolism Present on Admission: No
[2016-11-19] MEDS ORDERED: WARFARIN 5 MG TABLET PO SCH (14:00)
[2016-11-19] MEDS: DIGOXIN 125 MCG TABLET PO SCH (15:13)
--- NOTE | 2016-11-19 16:13 | Emergency Department Note ---
General Adult HPI - General Chief complaint: Skin/Abscess/Foreign Body Stated complaint: Pressure ulcers, Sent by wound care Time Seen by Provider: 11/16/16 15:21 Source: patient Mode of arrival: wheelchair - History of Present Illness HPI Narrative: Patient referred over from wound care for admission in which Dr Santos will do some debribement of wounds to left buttock. he's been evaluated and treated in wound care but has failed outpatient treatment - Related Data Previous Rx's Medication Instructions Recorded furosemide 40 mg tablet 40 mg PO BID #180 tab 01/14/16 ferrous sulfate 325 mg (65 mg 325 mg PO BID #180 tab 05/29/16 iron) tablet carvedilol 12.5 mg tablet 12.5 mg PO BID #60 tab 07/23/16 digoxin 250 mcg tablet 250 mcg PO QDAY 90 Days 09/10/16 lisinopril 2.5 mg tablet 2.5 mg PO QDAY 90 Days 10/27/16 hydrocodone 10 mg-acetaminophen 2 tab PO Q6H PRN #180 tab 11/13/16 325 mg tablet Allergies Allergy/AdvReac Type Severity Reaction Status Date / Time No Known Drug Allergies Allergy Verified 11/16/16 15:17 Review of Systems All systems ED: reviewed and negative except as stated. Integumentary: Reports: as per HPI, other (redness swelling left buttock right lower leg) Past Medical History - Past Medical History Medical history: Reports: hypertension - Social History Alcohol use: Reports: Rarely Drug use: Reports: none Physical Exam - General General appearance: alert - Head Head exam: atraumatic - Eye Eye exam: Present: normal appearance - ENT ENT exam: normal exam - Neck Neck exam: Present: normal inspection - Chest Chest inspection: Present: normal inspection - Respiratory Respiratory exam: Present: normal lung sounds bilaterally. Absent: respiratory distress - Cardiovascular Cardiovascular exam: Present: regular rate, normal rhythm. Absent: bradycardia , tachycardia - Abdominal Exam Abdominal exam: Present: soft. Absent: distention, tenderness - Rectal Exam Rectal exam: Present: other (redness swelling left butock) - Extremities Exam Extremities exam: Present: normal inspection - Back Exam Back exam: Present: normal inspection, full ROM Course Vital Signs Temperature 98.0 F 11/16/16 15:12 Pulse Rate 80 11/16/16 15:12 Respiratory Rate 16 11/16/16 15:12 Blood Pressure 139/115 11/16/16 15:12 Pulse Oximetry (%) 97 11/16/16 15:12 Temperature 98.3 F 11/19/16 15:09 Pulse Rate 77 11/19/16 15:09 Respiratory Rate 18 11/19/16 15:09 Blood Pressure 124/67 11/19/16 15:09 Pulse Oximetry (%) 95 11/19/16 15:09 Medical Decision Making - Lab Data Result diagrams: 11/19/16 05:15 11/19/16 05:15 Lab Results 11/16/16 11/16/16 11/16/16 Range/Units 00:08 15:25 15:25 WBC (4.5-11.0) K/mcL RBC (4.50-5.90) M/mcL Hgb (13.5-16.5) g/dL Hct (41.0-55.0) % MCV (80.0-100.0) fL MCH (26.0-34.0) pg MCHC (31.0-36.0) g/dL RDW (11.5-14.5) % Plt Count (140-440) K/mcL MPV (7.4-10.4) fL Total Counted Seg Neutrophils % (38-78) % Band Neutrophils % (0-10) % Lymphocytes % (15-49) % Monocytes % (Manual) (1-9) % Eosinophils % (Manual) (0-7) % Platelet Estimate (NORMAL) RBC Morphology (NORMAL) Macrocytosis (NONE SEEN) PT 15.1 H (11.9-14.5) sec INR 1.2 H (0.9-1.1) VBG Lactic Acid (0.5-2.2) mmol/L Sodium 134 (133-145) mmol/L Potassium 4.7 (3.3-5.1) mmol/L Chloride 96 (96-108) mmol/L Carbon Dioxide 27 (22-30) mmol/L Anion Gap 11.0 (8-16) BUN 8 (6-20) mg/dl Creatinine 0.8 (0.7-1.2) mg/dl GFR Calculation 100 Glucose 118 H (70-105) mg/dL Hemoglobin A1c 4.5 (4.0-6.0) % HGB Estim Average Glucose 82 mg/dL Calcium 8.9 (8.6-10.4) mg/dl Total Bilirubin 0.7 (0.0-1.0) mg/dL AST 17 (0-37) U/l ALT 8 (0-40) U/l Alkaline Phosphatase 133 H (39-117) U/L C-Reactive Protein 5.5 H (0.0-0.8) mg/dl NT-Pro-B Natriuret Pep (0-125) pg/ml Total Protein 7.8 (5.9-8.4) gm/dL Albumin 3.2 (3.2-5.2) gm/dL Globulin 4.6 H (2.2-3.7) gm/dL Albumin/Globulin Ratio 0.7 L (1.0-2.3) TSH (0.27-5.01) uIU/ml Urine Color Yellow Urine Appearance Clear Urine pH 6.0 (5.0-9.0) Ur Specific Meherrin 1.018 (1.000-1.035) Urine Protein Neg (NEG) mg/dL Urine Glucose (UA) Negative (NEG) mg/dL Urine Ketones Neg (NEG) mg/dL Urine Occult Blood Neg (<0.03) mg/dL Urine Nitrate Neg (NEG) Urine Bilirubin Neg (NEG) mg/dL Urine Urobilinogen Neg (NEG) mg/dL Ur Leukocyte Esterase Neg (NEG) /uL Ur Culture Indicated? No Digoxin (0.5-0.8) ng/ml Digoxin Dose Digox Last Dose Time 11/16/16 11/16/16 11/16/16 Range/Units 15:25 15:25 15:25 WBC 7.5 (4.5-11.0) K/mcL RBC 3.53 L (4.50-5.90) M/mcL Hgb 11.6 L (13.5-16.5) g/dL Hct 35.9 L (41.0-55.0) % MCV 101.8 H (80.0-100.0) fL MCH 33.0 (26.0-34.0) pg MCHC 32.4 (31.0-36.0) g/dL RDW 14.9 H (11.5-14.5) % Plt Count 378 (140-440) K/mcL MPV 8.3 (7.4-10.4) fL Total Counted 100 Seg Neutrophils % 66 (38-78) % Band Neutrophils % 1 (0-10) % Lymphocytes % 22 (15-49) % Monocytes % (Manual) 8 (1-9) % Eosinophils % (Manual) 3 (0-7) % Platelet Estimate Normal (NORMAL) RBC Morphology Abnorm A (NORMAL) Macrocytosis 1+ A (NONE SEEN) PT (11.9-14.5) sec INR (0.9-1.1) VBG Lactic Acid 1.3 (0.5-2.2) mmol/L Sodium (133-145) mmol/L Potassium (3.3-5.1) mmol/L Chloride (96-108) mmol/L Carbon Dioxide (22-30) mmol/L Anion Gap (8-16) BUN (6-20) mg/dl Creatinine (0.7-1.2) mg/dl GFR Calculation Glucose (70-105) mg/dL Hemoglobin A1c (4.0-6.0) % HGB Estim Average Glucose mg/dL Calcium (8.6-10.4) mg/dl Total Bilirubin (0.0-1.0) mg/dL AST (0-37) U/l ALT (0-40) U/l Alkaline Phosphatase (39-117) U/L C-Reactive Protein (0.0-0.8) mg/dl NT-Pro-B Natriuret Pep (0-125) pg/ml Total Protein (5.9-8.4) gm/dL Albumin (3.2-5.2) gm/dL Globulin (2.2-3.7) gm/dL Albumin/Globulin Ratio (1.0-2.3) TSH (0.27-5.01) uIU/ml Urine Color Urine Appearance Urine pH (5.0-9.0) Ur Specific Meherrin (1.000-1.035) Urine Protein (NEG) mg/dL Urine Glucose (UA) (NEG) mg/dL Urine Ketones (NEG) mg/dL Urine Occult Blood (<0.03) mg/dL Urine Nitrate (NEG) Urine Bilirubin (NEG) mg/dL Urine Urobilinogen (NEG) mg/dL Ur Leukocyte Esterase (NEG) /uL Ur Culture Indicated? Digoxin 1.4 H (0.5-0.8) ng/ml Digoxin Dose Not Reportable Digox Last Dose Time Not Reportable 11/16/16 Range/Units 15:25 WBC (4.5-11.0) K/mcL RBC (4.50-5.90) M/mcL Hgb (13.5-16.5) g/dL Hct (41.0-55.0) % MCV (80.0-100.0) fL MCH (26.0-34.0) pg MCHC (31.0-36.0) g/dL RDW (11.5-14.5) % Plt Count (140-440) K/mcL MPV (7.4-10.4) fL Total Counted Seg Neutrophils % (38-78) % Band Neutrophils % (0-10) % Lymphocytes % (15-49) % Monocytes % (Manual) (1-9) % Eosinophils % (Manual) (0-7) % Platelet Estimate (NORMAL) RBC Morphology (NORMAL) Macrocytosis (NONE SEEN) PT (11.9-14.5) sec INR (0.9-1.1) VBG Lactic Acid (0.5-2.2) mmol/L Sodium (133-145) mmol/L Potassium (3.3-5.1) mmol/L Chloride (96-108) mmol/L Carbon Dioxide (22-30) mmol/L Anion Gap (8-16) BUN (6-20) mg/dl Creatinine (0.7-1.2) mg/dl GFR Calculation Glucose (70-105) mg/dL Hemoglobin A1c (4.0-6.0) % HGB Estim Average Glucose mg/dL Calcium (8.6-10.4) mg/dl Total Bilirubin (0.0-1.0) mg/dL AST (0-37) U/l ALT (0-40) U/l Alkaline Phosphatase (39-117) U/L C-Reactive Protein (0.0-0.8) mg/dl NT-Pro-B Natriuret Pep 4531.0 H (0-125) pg/ml Total Protein (5.9-8.4) gm/dL Albumin (3.2-5.2) gm/dL Globulin (2.2-3.7) gm/dL Albumin/Globulin Ratio (1.0-2.3) TSH 1.19 (0.27-5.01) uIU/ml Urine Color Urine Appearance Urine pH (5.0-9.0) Ur Specific Meherrin (1.000-1.035) Urine Protein (NEG) mg/dL Urine Glucose (UA) (NEG) mg/dL Urine Ketones (NEG) mg/dL Urine Occult Blood (<0.03) mg/dL Urine Nitrate (NEG) Urine Bilirubin (NEG) mg/dL Urine Urobilinogen (NEG) mg/dL Ur Leukocyte Esterase (NEG) /uL Ur Culture Indicated? Digoxin (0.5-0.8) ng/ml Digoxin Dose Digox Last Dose Time Disposition Clinical Impression: Decubitus Ulcer Qualifiers: Pressure ulcer location: buttock Pressure ulcer stage: stage 3 Laterality: right Qualified Code(s): L89.313 - Pressure ulcer of right buttock, stage 3 Disposition: Xfer As Inpt ([facility]) Condition: Undetermined
--- NOTE | 2016-11-19 16:22 | Internal Med Progress Note ---
Medical - PN: Subj Patient information: Note initiated : 11/19/16 at 4:07 pm Service Date, if different from initiated Date: [] Patient: Branden Espinosa 55 y/o M admitted on 11/16/16 for Infected Decubitus Ulcer Rt Buttock/Rt Lower Leg. Chief Complaint: [] Interval history: The patient seen examined, lying comfortably in bed, no acute overnight events, He has no acute complaints The plan today was to discharge the patient to LTAC facility, however unfortunately the patients insurance did not cover the service. I reviewed the case with Dr Holt and Dr Mast today, Dr Mast evaluated the patient's wound 2 days after antibiotics, probed the wound and did not find any indication for debridement. The patient has no pustular discharge, and the wound on the right lower leg can be easily treated as outpatient and does not warrant LTAC level of care I reviwed this with Dr Holt who agreed that the wound is better and can be managed with IV antibiotics and wound care. The patient will need twice daily dressing changes and IV antibiotics for 2 weeks I reviewed his microbiology and I do not feel that he will be able to treat him with oral medications. He has a picc line At this time the patient is on zosyn q 6 hrs and vancomycin bid, IT will be difficult to discharge him home with this regime. Will consider getting teflaro 600mg bid and oral flagyl for coverage of mrsa, pseudomonas, gram neg and anaerobes. Case management is working on getting the requried in place - Constitutional Vitals: Vital Signs Temp Pulse Resp BP Pulse Ox 98.3 F 77 18 124/67 95 11/19/16 15:09 11/19/16 15:09 11/19/16 15:09 11/19/16 15:09 11/19/16 15:09 Period Temp Pulse Resp BP Sys/Andujar Pulse Ox Last 24 Hr 97.1 F-98.3 F 74-81 12-20 95-124/61-70 91-95 Intake and Output 11/19/16 11/19/16 11/19/16 05:59 13:59 21:59 Intake Total 300 / 300 50 / 50 Output Total 850 / 850 200 / 200 Balance -550 / -550 50 / 50 -200 / -200 Intake & Output: Intake & Output 11/19/16 11/19/16 11/19/16 05:59 13:59 21:59 Intake Total 300 / 300 50 / 50 Output Total 850 / 850 200 / 200 Balance -550 / -550 50 / 50 -200 / -200 Intake: IV 50 / 50 50 / 50 Dextrose 5% in Water 50 50 / 50 50 / 50 ml @ 100 mls/hr IV Q6H ANGELA with Zosyn 3.375 gm Rx#:[id number] Oral 250 / 250 Output: Void Amount 850 / 850 200 / 200 Other: # Bowel Movements 1 1 General appearance: cooperative, obese - Head Head exam: Present: atraumatic, normal inspection, normocephalic - Eye Eye exam: Absent: periorbital swelling, periorbital tenderness, scleral icterus - Neck Neck exam: Present: normal inspection - Respiratory Respiratory exam: Present: normal respiratory exam. Absent: rhonchi, stridor, wheezes - Cardiovascular Cardiovascular exam: Present: irregular rhythm, +S1, +S2 - GI/Abdominal GI/Abdominal exam: Present: normal bowel sounds, soft - Neurological Exam Neurological exam: Present: alert, CN II-XII intact, oriented X3. Absent: motor sensory deficit Medical - PN: Obj Da - Labs CBC & Chem 7: 11/19/16 05:15 11/19/16 05:15 Labs: Abnormal Lab Results 11/19/16 11/19/16 11/19/16 07:59 05:15 05:15 RBC Hgb Hct MCV RDW [place] % (Auto) Lymph # PT 16.4 H INR 1.3 H Calcium 8.2 L Phosphorus Albumin 2.7 L Globulin Albumin/Globulin Ratio 0.8 L Vancomycin Trough 24.0 H* 11/19/16 11/18/16 11/18/16 05:15 05:23 05:23 RBC 3.20 L Hgb 10.7 L Hct 32.5 L MCV 101.6 H RDW 15.0 H [place] % (Auto) Lymph # 1.1 L PT 16.3 H INR 1.3 H Calcium 8.4 L Phosphorus Albumin 2.7 L Globulin 4.0 H Albumin/Globulin Ratio 0.7 L Vancomycin Trough 11/18/16 11/17/16 11/17/16 05:23 17:30 05:30 RBC 3.20 L Hgb 10.6 L Hct 32.0 L MCV RDW [place] % (Auto) 13.5 H Lymph # 1.3 L PT INR Calcium Phosphorus 2.6 L Albumin 2.8 L Globulin Albumin/Globulin Ratio 0.8 L Vancomycin Trough 16.9 H 11/17/16 11/17/16 05:30 05:30 RBC 3.27 L Hgb 10.8 L Hct 32.9 L MCV 100.8 H RDW [place] % (Auto) Lymph # 1.3 L PT 15.7 H INR 1.2 H Calcium Phosphorus Albumin Globulin Albumin/Globulin Ratio Vancomycin Trough Meds: Medications Acetaminophen (Tylenol) 650 mg PO Q6HP PRN PRN Reason: PAIN/FEVER > 101 Acetaminophen/Hydrocodone Bitart ([place] 10/325mg) 2 tab PO Q6HP PRN PRN Reason: Pain Last Admin: 11/19/16 15:13 Dose: 2 tab Bisacodyl (Dulcolax) 10 mg MD Q2-3DAYS PRN PRN Reason: Constipation Carvedilol (Coreg) 12.5 mg PO BIDCC [facility] Last Admin: 11/19/16 08:36 Dose: 12.5 mg Digoxin (Lanoxin) 125 mcg PO DAILY@1400 [facility] Last Admin: 11/19/16 15:13 Dose: 125 mcg Docusate Sodium (Colace) 100 mg PO BID [facility] Last Admin: 11/19/16 08:54 Dose: Not Given Furosemide (Lasix) 40 mg PO BIDD [facility] Last Admin: 11/19/16 08:51 Dose: Not Given Gabapentin (Neurontin) 600 mg PO TIDP PRN PRN Reason: NERVE PAIN Heparin Sodium (Porcine) (Heparin) 5,000 unit SQ Q12 [facility] Last Admin: 11/19/16 08:35 Dose: 5,000 unit Piperacillin Sod/Tazobactam (Sod 3.375 gm/ Dextrose) 50 mls @ 100 mls/hr IV Q6H [facility] Last Admin: 11/19/16 12:31 Dose: 100 mls/hr Gentamicin Sulfate 40 mg/Clindamycin Phosphate 300 mg/Bacitracin 25,000 unit/ Sodium Chloride 503 mls @ 0 mls/hr IRR TID [facility] PRN Reason: As Directed Last Admin: 11/19/16 15:14 Dose: 100 mls/hr Lisinopril (Zestril) 2.5 mg PO DAILY [facility] Last Admin: 11/19/16 08:35 Dose: 2.5 mg Magnesium Hydroxide (Milk Of Magnesia) 30 ml PO DAILYP PRN PRN Reason: Constipation Sodium Biphosphate/Sodium Phosphate (Fleets Adult) 1 dose MD Q3-4DAYS PRN PRN Reason: Constipation Sodium Chloride (Saline Flush) 10 ml IV Q8 [facility] Last Admin: 11/19/16 15:43 Dose: 10 ml Warfarin Sodium (Coumadin) 5 mg PO DAILY@1400 [facility] Last Admin: 11/19/16 15:13 Dose: 5 mg Medical - PN: A/P - Time Spent With Patient Total time spent is greater than 50% in coordination of care (as documented) at patient's floor/unit and/or counseling patient: Greater than 35 minutes (time spent coordinating care and consultants reviewing plan of care) (1) Infected decubitus ulcer Status: Acute Assessment and plan: much improved on IV vanco and zosyn continue same teflaro flagyl at discharge. Current Visit: Yes (2) Atrial fibrillation Status: Acute Assessment and plan: HR well controlled on c oreg, continue same ON coumadin, inr subtherpuetic continue coumadin and check INR daily while inpatient Current Visit: No Medical - PN: Qual - Stroke Symptom Onset Unknown: No - VTE Deep Vein Thrombosis/Pulmonary Embolism Present on Admission: No
--- NOTE | 2016-11-19 17:15 | General Surgery Progress Note ---
Subjective Patient reports: no new complaints Narrative: Note initiated : 11/19/16 at 5:09 pm Service Date, if different from initiated Date: [] Patient: Branden Espinosa 55 y/o M admitted on 11/16/16 for Infected Decubitus Ulcer Rt Buttock/Rt Lower Leg. Chief Complaint: I saw patient this morning and again later afternoon. I examined his wounds along with nurse and discussed his current wound care with Dr. Alvarenga and Ava FRANKLIN. [employer]. Reportedly, the insurance company is denying his transfer to a facility with availability of higher level of care. He needs dressing changes, at least three times a day and and intervenous antibiotics. The aggressive and supportive care IS helping him and his wounds. Patient needs current DME and services of allied health home care specialist, which is NOT available here. He is NOT a candidate for administration of anesthesia or debridement in OR. ] Objective Temp Pulse Resp BP Pulse Ox 98.3 F 77 18 124/67 95 11/19/16 15:09 11/19/16 15:09 11/19/16 15:09 11/19/16 15:09 11/19/16 15:09 No Fever. Vital signs are stable. No acute changes in FELI. Local Examination: Interval improvement in his right buttock wound with diminishing drainage and odor. Regular nursing care and dressing changes is helping him. Continues ot be on intervenous antibiotics at this time. - Additional Data Intake & Output - Last 24 hours: Intake & Output 11/17/16 11/18/16 11/19/16 11/20/16 05:59 05:59 05:59 05:59 Intake Total 0 / 550 450 / 450 1550 / 1550 50 / 50 Output Total 850 / 850 2295 / 2295 1230 / 1230 200 / 200 Balance -850 / -300 -1845 / -1845 320 / 320 -150 / -150 Weight 415 lb 12.8 oz 411 lb 9.6 oz 409 lb - Labs 11/19/16 05:15 11/19/16 05:15 Diabetes panel 11/19/16 Range/Units 05:15 Sodium 137 (133-145) mmol/L Potassium 4.3 (3.3-5.1) mmol/L Chloride 101 (96-108) mmol/L Carbon Dioxide 27 (22-30) mmol/L BUN 6 (6-20) mg/dl Creatinine 0.7 (0.7-1.2) mg/dl Glucose 86 (70-105) mg/dL Calcium 8.2 L (8.6-10.4) mg/dl AST 12 (0-37) U/l ALT 6 (0-40) U/l Alkaline Phosphatase 107 (39-117) U/L Total Protein 6.2 (5.9-8.4) gm/dL Albumin 2.7 L (3.2-5.2) gm/dL Triglycerides 125 (<150) mg/dl Calcium panel 11/19/16 Range/Units 05:15 Calcium 8.2 L (8.6-10.4) mg/dl Phosphorus 2.7 (2.7-4.5) mg/dL Albumin 2.7 L (3.2-5.2) gm/dL Pituitary panel 11/19/16 Range/Units 05:15 Sodium 137 (133-145) mmol/L Potassium 4.3 (3.3-5.1) mmol/L Chloride 101 (96-108) mmol/L Carbon Dioxide 27 (22-30) mmol/L BUN 6 (6-20) mg/dl Creatinine 0.7 (0.7-1.2) mg/dl Glucose 86 (70-105) mg/dL Calcium 8.2 L (8.6-10.4) mg/dl Adrenal panel 11/19/16 Range/Units 05:15 Sodium 137 (133-145) mmol/L Potassium 4.3 (3.3-5.1) mmol/L Chloride 101 (96-108) mmol/L Carbon Dioxide 27 (22-30) mmol/L BUN 6 (6-20) mg/dl Creatinine 0.7 (0.7-1.2) mg/dl Glucose 86 (70-105) mg/dL Calcium 8.2 L (8.6-10.4) mg/dl Total Bilirubin 0.5 (0.0-1.0) mg/dL AST 12 (0-37) U/l ALT 6 (0-40) U/l Alkaline Phosphatase 107 (39-117) U/L Total Protein 6.2 (5.9-8.4) gm/dL Albumin 2.7 L (3.2-5.2) gm/dL Medical - PN: A/P - Time Spent With Patient Total time spent is greater than 50% in coordination of care (as documented) at patient's floor/unit and/or counseling patient: Patient is responding to local wound care and intervenous antibiotics. He is NOT capable of living by himself or taking care of his wounds by himself at this time. IF HE IS UNABLE TO BE TRANSFERRED TO A FACILITY FOR HIGHER LEVEL OF CARE, THAN OPTIONS NEED TO BE EXPLORED TO TREAT HIM LOCALLY . He will need ongoing wound care, IV antibiotics and evaluation by infectious disease specialist and for surgical care under anesthesia as appropriate. I will await developments and continue to follow him,whilst he is in [facility]. Greater than 35 minutes (1) Decubitus Ulcer Problem details: NEEDS transfer to higher level of care for co ordinated wound care, surgical debridemetn, ID Consult and Physical Therapy Status: Acute Current Visit: Yes (2) Ulcer of right lower extremity with fat layer exposed Problem details: Palliative wound care. Clean with NS and apply antibiotic soaked wet / dry dressing changes three times a day. Status: Chronic Current Visit: Yes
[2016-11-20] MEDS: PIPERACILLIN SODIUM/TAZOBACTAM 3.375 GM in DEXTROSE 5% IN WATER 50 ML IV SCH ×4 (00:06→17:27)
[2016-11-20] MEDS: 0.9 % SODIUM CHLORIDE 10 ML SYRINGE IV SCH ×4 (00:06→20:53)
[2016-11-20 06:07] LABS: Basophils # (Auto) 0 K/mcL (0.0-0.3); Basophils % (Auto) 0.5 % (0.0-2.0); Eosinophils # (Auto) 0.2 K/mcL (0.0-0.7); Eosinophils % (Auto) 4.1 % (0.0-7.0); Granulocytes % (Auto) 68.4 % (38.0-78.0); Mean Cell Volume 99.6 fL (80.0-100.0); Mean Corpuscular HGB Conc 33.5 g/dL (31.0-36.0); Mean Corpuscular Hemoglobin 33.4 pg (26.0-34.0); Monocytes # (Auto) 0.5 K/mcL (0.1-0.9); Platelet Count 240 K/mcL (140-440); RBC 3.15 M/mcL (4.50-5.90); Red Cell Distribution Width 14.1 % (11.5-14.5)
[2016-11-20] MEDS: HYDROcodone/APAP 10/325MG TABLET PO PRN ×3 (06:57→18:06)
[2016-11-20 07:04] LABS: ALT/SGPT 5 U/l (0-40); Albumin 2.7 gm/dL (3.2-5.2); Albumin/Globulin Ratio 0.8 (1.0-2.3); Alkaline Phosphatase 105 U/L (39-117); Bilirubin,Direct 0.3 mg/dL (0.0-0.3); Blood Urea Nitrogen 5 mg/dl (6-20); Gamma Glutamyl Transpeptidase 59 U/L (8-61); Magnesium 1.9 mg/dL (1.6-2.5); Phosphorous 2.8 mg/dL (2.7-4.5); Uric Acid 4.9 mg/dL (2.5-8.0)
[2016-11-20] MEDS: DOCUSATE SODIUM 100 MG CAPSULE PO SCH ×2 (08:12→20:50)
[2016-11-20] MEDS: FUROSEMIDE 40 MG TABLET PO SCH (08:12)
[2016-11-20] MEDS: CARVEDILOL 6.25 MG TABLET PO SCH (08:13)
[2016-11-20] MEDS: LISINOPRIL 5 MG TABLET PO SCH (08:13)
[2016-11-20] MEDS: HEPARIN 5,000 UNIT/ML VIAL SQ SCH ×2 (08:13→20:51)
[2016-11-20] MEDS: ONDANSETRON 4 MG/2 ML VIAL IV ONE ×2 (08:56→09:46)
[2016-11-20] MEDS ORDERED: DIGOXIN 500 MCG/2 ML AMPUL IV ONE ×2 (09:05→09:48)
[2016-11-20] MEDS: GENTAMICIN SULFATE 40 MG, CLINDAMYCIN 300 MG, BACITRACIN 25,000 UNIT in SODIUM CHLORIDE... IRR SCH ×3 (09:54→20:50)
[2016-11-20] MEDS ORDERED: FLEETS ADULT ENEMA PR PRN (10:37)
[2016-11-20] MEDS ORDERED: MAGNESIUM HYDROXIDE 30 ML ORAL.SUSP PO PRN (10:37)
[2016-11-20] MEDS ORDERED: BISACODYL 10 MG SUPP.RECT PR PRN (10:37)
[2016-11-20] MEDS ORDERED: GABAPENTIN 300 MG CAPSULE PO PRN (10:37)
[2016-11-20] MEDS ORDERED: ACETAMINOPHEN 325 MG TABLET PO PRN (10:37)
--- NOTE | 2016-11-20 11:08 | Internal Med Progress Note ---
Medical - PN: Subj Patient information: Note initiated : 11/20/16 at 11:04 am Service Date, if different from initiated Date: [] Patient: Branden Espinosa 55 y/o M admitted on 11/16/16 for Infected Decubitus Ulcer Rt Buttock/Rt Lower Leg. Chief Complaint: [] Interval history: The patient seen examined this AM patient was stable for D/C today, however he noted that since this AM he was having GI distress and fatigue, His vitals showed him having oxygen of 88% and heart rate of 120-130, the patient did complain of palpitations Patient did not endorse chest pains, shorntess of breath, dizziness, or syncope. EKG was obtained which revealed AFib with RVR no st elevations, labs ordered for trop, x tsh, t4, and a dig level. IV 125mcg dig given and CT angio ordered. Patient HR stablized after some time, The patient will be transferred to tele obs status in light of this new finding. The patient otherwise does not endorse cp, sob, cough, fever, abdominal pain. nausea or vomiting. his symptoms steff got better after burping? Pertinent ROS: see HPI Additional PMFSH (Level 3 Only): h/o afib with rvr on coumadin, digoxin, c oreg. - Constitutional Vitals: Vital Signs Temp Pulse Resp BP Pulse Ox 98.4 F 70 18 108/69 94 11/20/16 06:16 11/20/16 10:00 11/20/16 06:16 11/20/16 10:00 11/20/16 06:16 Period Temp Pulse Resp BP Sys/Andujar Pulse Ox Last 24 Hr 97.6 F-98.5 F 67-90 16-18 103-124/64-79 92-96 Intake and Output 11/19/16 11/20/16 11/20/16 21:59 05:59 13:59 Intake Total 290 / 290 150 / 150 360 / 360 Output Total 700 / 700 825 / 825 Balance -410 / -410 -675 / -675 360 / 360 Weight 405 lb Intake & Output: Intake & Output 11/19/16 11/20/16 11/20/16 21:59 05:59 13:59 Intake Total 290 / 290 150 / 150 360 / 360 Output Total 700 / 700 825 / 825 Balance -410 / -410 -675 / -675 360 / 360 Weight 405 lb Intake: IV 50 / 50 50 / 50 Dextrose 5% in Water 50 50 / 50 50 / 50 ml @ 100 mls/hr IV Q6H ANGELA with Zosyn 3.375 gm Rx#:[id number] Oral 240 / 240 100 / 100 360 / 360 Output: Void Amount 700 / 700 825 / 825 Other: Meal Dinner Percent of Meal Consumed 50% Feeding Ability Independent # Voids 1 1 # Bowel Movements 1 1 General appearance: cooperative, morbidly obese, no acute distress - Head Head exam: Present: atraumatic, normal inspection - Neck Neck exam: Present: normal inspection - Respiratory Respiratory exam: Present: normal respiratory exam. Absent: accessory muscle use, chest wall tenderness, rhonchi, stridor, wheezes - Cardiovascular Cardiovascular exam: Present: irregular rhythm, +S1, +S2, tachycardia - GI/Abdominal GI/Abdominal exam: Present: normal bowel sounds, soft - Neurological Exam Neurological exam: Present: alert, CN II-XII intact, oriented X3. Absent: motor sensory deficit - Psychiatric Psychiatric exam: Present: anxious. Absent: agitated Medical - PN: Obj Da - Labs CBC & Chem 7: 11/20/16 05:00 11/20/16 05:00 Labs: Abnormal Lab Results 11/20/16 11/20/16 11/20/16 05:00 05:00 05:00 RBC 3.15 L Hgb 10.5 L Hct 31.4 L MCV RDW [place] % (Auto) Lymph # 1.0 L PT 16.2 H INR 1.3 H BUN 5 L Calcium 8.3 L Albumin 2.7 L Globulin Albumin/Globulin Ratio 0.8 L Vancomycin Trough 11/19/16 11/19/16 11/19/16 07:59 05:15 05:15 RBC Hgb Hct MCV RDW [place] % (Auto) Lymph # PT 16.4 H INR 1.3 H BUN Calcium 8.2 L Albumin 2.7 L Globulin Albumin/Globulin Ratio 0.8 L Vancomycin Trough 24.0 H* 11/19/16 11/18/16 11/18/16 05:15 05:23 05:23 RBC 3.20 L Hgb 10.7 L Hct 32.5 L MCV 101.6 H RDW 15.0 H [place] % (Auto) Lymph # 1.1 L PT 16.3 H INR 1.3 H BUN Calcium 8.4 L Albumin 2.7 L Globulin 4.0 H Albumin/Globulin Ratio 0.7 L Vancomycin Trough 11/18/16 11/17/16 05:23 17:30 RBC 3.20 L Hgb 10.6 L Hct 32.0 L MCV RDW [place] % (Auto) 13.5 H Lymph # 1.3 L PT INR BUN Calcium Albumin Globulin Albumin/Globulin Ratio Vancomycin Trough 16.9 H Meds: Medications Acetaminophen (Tylenol) 650 mg PO Q6HP PRN PRN Reason: PAIN/FEVER > 101 Acetaminophen/Hydrocodone Bitart ([place] 10/325mg) 2 tab PO Q6HP PRN PRN Reason: Pain Bisacodyl (Dulcolax) 10 mg [place] Q2-3DAYS PRN PRN Reason: Constipation Carvedilol (Coreg) 12.5 mg PO BIDCC [facility] Digoxin (Lanoxin) 125 mcg PO DAILY@1400 [facility] Docusate Sodium (Colace) 100 mg PO BID ANGELA Furosemide (Lasix) 40 mg PO BIDD [facility] Gabapentin (Neurontin) 600 mg PO TIDP PRN PRN Reason: NERVE PAIN Heparin Sodium (Porcine) (Heparin Flush) 2 ml IV Q12 [facility] Heparin Sodium (Porcine) (Heparin) 5,000 unit SQ Q12 [facility] Gentamicin Sulfate 40 mg/Clindamycin Phosphate 300 mg/Bacitracin 25,000 unit/ Sodium Chloride 503 mls @ 0 mls/hr IRR TID [facility] PRN Reason: As Directed Piperacillin Sod/Tazobactam (Sod 3.375 gm/ Dextrose) 50 mls @ 100 mls/hr IV Q6H [facility] Vancomycin HCl 1,500 mg/ (Sodium Chloride) 500 mls @ 333.3 mls/hr IV Q24H [facility] Lisinopril (Zestril) 2.5 mg PO DAILY [facility] Magnesium Hydroxide (Milk Of Magnesia) 30 ml PO DAILYP PRN PRN Reason: Constipation Sodium Biphosphate/Sodium Phosphate (Fleets Adult) 1 dose [place] Q3-4DAYS PRN PRN Reason: Constipation Sodium Chloride (Saline Flush) 10 ml IV Q8 [facility] Warfarin Sodium (Coumadin) 5 mg PO DAILY@1400 [facility] Medical - PN: A/P - Time Spent With Patient Total time spent is greater than 50% in coordination of care (as documented) at patient's floor/unit and/or counseling patient: (1) Infected decubitus ulcer Status: Acute Assessment and plan: much improved on IV vanco and zosyn continue same teflaro flagyl at discharge for ease of adminstration Case management working on antibiotic. Current Visit: Yes (2) Atrial fibrillation Status: Acute Assessment and plan: HR abnorma INR subhterapeutic Increase dose of coumadin to 7.5mg qday check inr daily Current Visit: No (3) Atrial fibrillation with RVR Status: Acute Assessment and plan: On coreg and dig HR stablized monitor on tele increase digoxin dose back to 250mcg daily IV dig 125mcg given Patient labs awaited. CT angio report awaited, given hypoxia during the event, CTA was ordered, pt is bed bound . Current Visit: Yes Medical - PN: Qual - Stroke Symptom Onset Unknown: No - VTE Deep Vein Thrombosis/Pulmonary Embolism Present on Admission: No
--- NOTE | 2016-11-20 11:44 | Cat Scan Report ---
CLINICAL INFORMATION: Reason for Exam:R/O PE COMPARISON: Chest x-ray on 11/17/16 TECHNIQUE: Axial images obtained through the chest. intravenous contrast administration was administered, and scanning was performed during pulmonary arterial phase. Sagittally and coronally reformatted images were obtained. MIP reformatted images. FINDINGS: The pulmonary arteries are normal with no intraluminal filling defects. The aorta is normal in caliber. There are scattered plaques along the top of the aortic arch. Patient also has scattered plaques in the proximal left anterior descending and circumflex coronary arteries. The heart is mildly enlarged. No pericardial effusion is present. There is a small layering right-sided pleural effusion Adjacent to the pleural effusion and there is mild consolidation of the posterior basal segment of the right lower lobe. This could be atelectasis or pneumonia. Lungs are otherwise clear. There is no mass. No abnormally enlarged lymph nodes are present in the mediastinum and markel. Patient has had prior gastric surgery. There is a row of sutures around the gastroesophageal junction and cardia.. IMPRESSION: 1. No evidence of pulmonary emboli 2. Small layering right-sided pleural effusion with mild consolidation in the right lower lobe which may be atelectasis or pneumonia 3. Mild cardiomegaly with mild atherosclerotic coronary artery disease Interpreted and Authenticated by: Thad Levine 11/20/16
[2016-11-20] MEDS: VANCOMYCIN 1,500 MG in 0.9 % SODIUM CHLORIDE 500 ML IV SCH (12:23)
[2016-11-20] MEDS ORDERED: WARFARIN 5 MG TABLET PO SCH ×2 (14:00)
[2016-11-20] MEDS ORDERED: DIGOXIN 125 MCG TABLET PO SCH ×3 (14:00)
[2016-11-20] MEDS ORDERED: GENTAMICIN SULFATE 40 MG, CLINDAMYCIN 300 MG, BACITRACIN 25,000 UNIT in SODIUM CHLORIDE... IRR SCH (15:00)
--- NOTE | 2016-11-20 15:05 | General Surgery Progress Note ---
Subjective Patient reports: other (I have seen Mr. Espinosa several times today and have examined his wounds, spoken with nursing staff and CM several times. I am UNABLE TO CONTACT HIS INSURANCE CARRIER Tel . I have tried calling this number and other numbers to APPEAL denial of his treatment by the insurance carrier. ) Narrative: Note initiated : 11/20/16 at 3:03 pm Service Date, if different from initiated Date: [] Patient: Branden Espinosa 55 y/o M admitted on 11/16/16 for Infected Decubitus Ulcer Rt Buttock/Rt Lower Leg. Chief Complaint: []Open wounds Pressure Ulcer Right posterior buttock. Right posterior lower third leg CHRONIC Super morbid Obese, BED CONFINED BMI 75. ON IV Antibiotics and local wound care. NEEDS OR debridement and assessment of Right posterior buttock ulcer, It is NOT POSSIBLE to treat him here, See Anesthesiology Note. PATIENT is accepted in transfer by [facility] in [facility] in [place], BUT THE INSURANCE CARRIER IS REFUSING AUTHORIZATION FOR TRANSFER. WILL APPEAL THIS DENIAL. Objective Temp Pulse Resp BP Pulse Ox 98.5 F 80 20 119/60 96 11/20/16 12:00 11/20/16 12:00 11/20/16 12:00 11/20/16 12:00 11/20/16 12:00 AVSS. HD STABLE. He c/o chest discomfort. Underwent VQ scan PE Ruled Out. I have seen his wounds. Right gluteal wound tracks high up to sacral area and above. UNABLE to determine full extent. - Additional Data Intake & Output - Last 24 hours: Intake & Output 11/18/16 11/19/16 11/20/16 11/21/16 05:59 05:59 05:59 05:59 Intake Total 450 / 450 1550 / 1550 540 / 540 360 / 360 Output Total 2295 / 2295 1230 / 1230 1825 / 1825 200 / 200 Balance -1845 / -1845 320 / 320 -1285 / -1285 160 / 160 Weight 411 lb 9.6 oz 409 lb 405 lb 405 lb - Labs 11/20/16 05:00 11/20/16 05:00 Diabetes panel 11/20/16 Range/Units 05:00 Sodium 139 (133-145) mmol/L Potassium 4.3 (3.3-5.1) mmol/L Chloride 101 (96-108) mmol/L Carbon Dioxide 28 (22-30) mmol/L BUN 5 L (6-20) mg/dl Creatinine 0.8 (0.7-1.2) mg/dl Glucose 84 (70-105) mg/dL Calcium 8.3 L (8.6-10.4) mg/dl AST 11 (0-37) U/l ALT 5 (0-40) U/l Alkaline Phosphatase 105 (39-117) U/L Total Protein 6.1 (5.9-8.4) gm/dL Albumin 2.7 L (3.2-5.2) gm/dL Triglycerides 121 (<150) mg/dl Thyroid panel 11/20/16 Range/Units 09:00 TSH 1.21 (0.27-5.01) uIU/ml Calcium panel 11/20/16 Range/Units 05:00 Calcium 8.3 L (8.6-10.4) mg/dl Phosphorus 2.8 (2.7-4.5) mg/dL Albumin 2.7 L (3.2-5.2) gm/dL Pituitary panel 11/20/16 11/20/16 Range/Units 05:00 09:00 Sodium 139 (133-145) mmol/L Potassium 4.3 (3.3-5.1) mmol/L Chloride 101 (96-108) mmol/L Carbon Dioxide 28 (22-30) mmol/L BUN 5 L (6-20) mg/dl Creatinine 0.8 (0.7-1.2) mg/dl Glucose 84 (70-105) mg/dL Calcium 8.3 L (8.6-10.4) mg/dl TSH 1.21 (0.27-5.01) uIU/ml Adrenal panel 11/20/16 Range/Units 05:00 Sodium 139 (133-145) mmol/L Potassium 4.3 (3.3-5.1) mmol/L Chloride 101 (96-108) mmol/L Carbon Dioxide 28 (22-30) mmol/L BUN 5 L (6-20) mg/dl Creatinine 0.8 (0.7-1.2) mg/dl Glucose 84 (70-105) mg/dL Calcium 8.3 L (8.6-10.4) mg/dl Total Bilirubin 0.5 (0.0-1.0) mg/dL AST 11 (0-37) U/l ALT 5 (0-40) U/l Alkaline Phosphatase 105 (39-117) U/L Total Protein 6.1 (5.9-8.4) gm/dL Albumin 2.7 L (3.2-5.2) gm/dL Medical - PN: A/P - Time Spent With Patient Total time spent is greater than 50% in coordination of care (as documented) at patient's floor/unit and/or counseling patient: Spoke with Nursing Staff and CM several times today. The CONSENSUS plan of CM is to discharge patient home and arrange for transportation for him to come to hospital daily BID for IV antibiotics and dressing changes,. Patient also needs an INFECTION DISEASE Consult Will have to continue efforts to contact insurance carrier and APPEAL DENIAL. when they reopen after week end. Case discussed with Hospitalist Dr. Alvarenga. Greater than 35 minutes (1) Decubitus Ulcer Problem details: NEEDS transfer to higher level of care for co ordinated wound care, surgical debridemetn, ID Consult and Physical Therapy Status: Acute Current Visit: Yes (2) Ulcer of right lower extremity with fat layer exposed Problem details: Palliative wound care. Clean with NS and apply antibiotic soaked wet / dry dressing changes three times a day. Status: Chronic Current Visit: Yes
[2016-11-20] MEDS ORDERED: FUROSEMIDE 40 MG TABLET PO PRN (15:23)
[2016-11-20] MEDS ORDERED: FUROSEMIDE 40 MG TABLET PO SCH (16:00)
[2016-11-20] MEDS ORDERED: CARVEDILOL 6.25 MG TABLET PO SCH ×2 (17:30)
[2016-11-21] MEDS: PIPERACILLIN SODIUM/TAZOBACTAM 3.375 GM in DEXTROSE 5% IN WATER 50 ML IV SCH ×5 (00:23→19:00)
[2016-11-21] MEDS: HYDROcodone/APAP 10/325MG TABLET PO PRN ×4 (00:42→20:13)
[2016-11-21 06:48] LABS: Basophils # (Auto) 0 K/mcL (0.0-0.3); Basophils % (Auto) 0.4 % (0.0-2.0); Eosinophils # (Auto) 0.3 K/mcL (0.0-0.7); Eosinophils % (Auto) 5.3 % (0.0-7.0); Granulocytes % (Auto) 59.8 % (38.0-78.0); Lymphocytes # (Auto) 1.3 K/mcL (1.5-4.8); Lymphocytes % (Auto) 24.2 % (15.5-49.0); Mean Cell Volume 102.2 fL (80.0-100.0); Mean Corpuscular HGB Conc 32.9 g/dL (31.0-36.0); Mean Corpuscular Hemoglobin 33.6 pg (26.0-34.0); Monocytes # (Auto) 0.6 K/mcL (0.1-0.9); Monocytes % (Auto) 10.3 % (1.0-9.0); Platelet Count 273 K/mcL (140-440); RBC 3.11 M/mcL (4.50-5.90); Red Cell Distribution Width 14.7 % (11.5-14.5)
[2016-11-21] MEDS: DOCUSATE SODIUM 100 MG CAPSULE PO SCH ×2 (07:08→20:14)
[2016-11-21 07:36] LABS: ALT/SGPT 5 U/l (0-40); Albumin 2.6 gm/dL (3.2-5.2); Albumin/Globulin Ratio 0.7 (1.0-2.3); Alkaline Phosphatase 100 U/L (39-117); Bilirubin,Direct < 0.2 mg/dL (0.0-0.3); Blood Urea Nitrogen 5 mg/dl (6-20); Gamma Glutamyl Transpeptidase 58 U/L (8-61); Phosphorous 2.5 mg/dL (2.7-4.5); Uric Acid 4.7 mg/dL (2.5-8.0)
[2016-11-21] MEDS ORDERED: CARVEDILOL 12.5 MG TABLET PO SCH ×2 (08:00→17:30)
[2016-11-21] MEDS ORDERED: WARFARIN 5 MG TABLET PO SCH (08:30)
[2016-11-21] MEDS ORDERED: LISINOPRIL 5 MG TABLET PO SCH (09:00)
[2016-11-21] MEDS: HEPARIN 5,000 UNIT/ML VIAL SQ SCH ×2 (09:10→20:13)
[2016-11-21] MEDS: 0.9 % SODIUM CHLORIDE 10 ML SYRINGE IV SCH ×2 (09:11→14:08)
--- NOTE | 2016-11-21 09:53 | Internal Med Progress Note ---
Medical - PN: Subj Patient information: Note initiated : 11/21/16 at 9:50 am Service Date, if different from initiated Date: [] Patient: Branden Espinosa 55 y/o M admitted on 11/16/16 for Infected Decubitus Ulcer Rt Buttock/Rt Lower Leg. Chief Complaint: [] Interval history: The patient seen and examined, no acute overnight events, the patient had afib with rvr yesterday and was therefore moved to tele status, This am patient is doing well, no cp, sob, chest pain ,palpitations, he was in bed comfortably resting, eating his breakfast. Tele reviewed, no rvr events since yesterday evening. Patient wound care transition manager note reviewed case discussed with him personally. Initially it seemed that the plan was to discharge the patient home with wound care twice daily and IV antibiotics till we could figure out a place to debride the wound. It seems that the wound care physician Dr Holt believes that the patient needs to have debridement of the decub ulcer under [place] to evaluate this completely. He is aware that the insurance company has denied the authorization for LTAC placement. He is planning to appeal the decision. Till there is some clarity on disposition, the patient will remain in the hospital, untill a safe discharge plan can be formulated. Since I am not a wound care expert, I will defer the disposition to Dr Holt who is a air cargo specialist and the case management team to help with the insurance issues. Pertinent ROS: no chest pain, no paliptations no headche or d izziness no shortness of breath no abdominal pain, nausea or vomiting. - Constitutional Vitals: Vital Signs Temp Pulse Resp BP Pulse Ox 99.1 F 68 14 101/53 92 11/21/16 08:00 11/21/16 08:00 11/21/16 08:00 11/21/16 08:00 11/21/16 08:00 Period Temp Pulse Resp BP Sys/Andujar Pulse Ox Last 24 Hr 97.5 F-99.1 F 68-80 14-22 101-128/53-73 91-97 Intake and Output 11/20/16 11/21/16 11/21/16 21:59 05:59 13:59 Intake Total 1470 / 1470 300 / 300 50 / 50 Output Total 400 / 400 500 / 500 350 / 350 Balance 1070 / 1070 -200 / -200 -300 / -300 Weight 411 lb 1.6 oz Intake & Output: Intake & Output 11/20/16 11/21/16 11/21/16 21:59 05:59 13:59 Intake Total 1470 / 1470 300 / 300 50 / 50 Output Total 400 / 400 500 / 500 350 / 350 Balance 1070 / 1070 -200 / -200 -300 / -300 Weight 411 lb 1.6 oz Intake: IV 600 / 600 50 / 50 50 / 50 Dextrose 5% in Water 50 100 / 100 50 / 50 50 / 50 ml @ 100 mls/hr IV Q6H ANGELA with Zosyn 3.375 gm Rx#:[id number] Sodium Chloride 0.9% 500 500 / 500 ml @ 333.3 mls/hr IV Q24H ANGELA with Vancomycin 1, 500 mg Rx#:[id number] Oral 870 / 870 250 / 250 Output: Urine Catheter Amount 250 / 250 Void Amount 400 / 400 250 / 250 350 / 350 Other: Meal Dinner Percent of Meal Consumed 25% Feeding Ability Assist with Tray Set Up # Voids 1 # Bowel Movements 1 General appearance: cooperative, morbidly obese - Head Head exam: Present: atraumatic, normal inspection, normocephalic - Eye Eye exam: Present: PERRL. Absent: periorbital swelling, periorbital tenderness , scleral icterus - Neck Neck exam: Present: normal inspection - Respiratory Respiratory exam: Present: normal respiratory exam. Absent: stridor, wheezes - Cardiovascular Cardiovascular exam: Present: irregular rhythm, +S1, +S2. Absent: tachycardia - GI/Abdominal GI/Abdominal exam: Present: normal bowel sounds, soft - Neurological Exam Neurological exam: Present: alert, CN II-XII intact, oriented X3. Absent: motor sensory deficit Medical - PN: Obj Da - Labs CBC & Chem 7: 11/21/16 04:43 11/21/16 04:43 Labs: Abnormal Lab Results 11/21/16 11/21/16 11/21/16 04:43 04:43 04:43 RBC 3.11 L Hgb 10.4 L Hct 31.8 L MCV 102.2 H RDW 14.7 H Boyd % (Auto) 10.3 H Lymph # 1.3 L PT 16.6 H INR 1.3 H BUN 5 L Calcium 8.4 L Phosphorus 2.5 L Albumin 2.6 L Globulin 3.9 H Albumin/Globulin Ratio 0.7 L Vancomycin Trough 11/20/16 11/20/16 11/20/16 05:00 05:00 05:00 RBC 3.15 L Hgb 10.5 L Hct 31.4 L MCV RDW Boyd % (Auto) Lymph # 1.0 L PT 16.2 H INR 1.3 H BUN 5 L Calcium 8.3 L Phosphorus Albumin 2.7 L Globulin Albumin/Globulin Ratio 0.8 L Vancomycin Trough 11/19/16 11/19/16 11/19/16 07:59 05:15 05:15 RBC Hgb Hct MCV RDW Boyd % (Auto) Lymph # PT 16.4 H INR 1.3 H BUN Calcium 8.2 L Phosphorus Albumin 2.7 L Globulin Albumin/Globulin Ratio 0.8 L Vancomycin Trough 24.0 H* 11/19/16 05:15 RBC 3.20 L Hgb 10.7 L Hct 32.5 L MCV 101.6 H RDW 15.0 H Boyd % (Auto) Lymph # 1.1 L PT INR BUN Calcium Phosphorus Albumin Globulin Albumin/Globulin Ratio Vancomycin Trough Meds: Medications Acetaminophen (Tylenol) 650 mg PO Q6HP PRN PRN Reason: PAIN/FEVER > 101 Acetaminophen/Hydrocodone Bitart ([place] 10/325mg) 2 tab PO Q6HP PRN PRN Reason: Pain Last Admin: 11/21/16 07:49 Dose: 2 tab Bisacodyl (Dulcolax) 10 mg [place] Q2-3DAYS PRN PRN Reason: Constipation [facility]oxin (Lanoxin) 125 mcg PO DAILY@1400 [facility] Last Admin: 11/20/16 15:13 Dose: 125 mcg Docusate Sodium (Colace) 100 mg PO BID [facility] Last Admin: 11/21/16 07:08 Dose: Not Given Furosemide (Lasix) 40 mg PO BIDP PRN PRN Reason: weight gain Gabapentin (Neurontin) 600 mg PO TIDP PRN PRN Reason: NERVE PAIN Heparin Sodium (Porcine) (Heparin Flush) 2 ml IV Q12 [facility] Last Admin: 11/21/16 09:11 Dose: 2 ml Heparin Sodium (Porcine) (Heparin) 5,000 unit SQ Q12 [facility] Last Admin: 11/21/16 09:10 Dose: 5,000 unit Piperacillin Sod/Tazobactam (Sod 3.375 gm/ Dextrose) 50 mls @ 100 mls/hr IV Q6H [facility] Last Infusion: 11/21/16 07:09 Dose: Infused Vancomycin HCl 1,500 mg/ (Sodium Chloride) 500 mls @ 333.3 mls/hr IV Q24H [facility] Last Infusion: 11/20/16 14:00 Dose: Infused Gentamicin Sulfate 40 mg/Clindamycin Phosphate 300 mg/Bacitracin 25,000 unit/ Sodium Chloride 503 mls @ 1 mls/hr IRR BID [facility] Last Admin: 11/20/16 20:50 Dose: 1 mls/hr Lisinopril (Zestril) 2.5 mg PO DAILY [facility] Last Admin: 11/21/16 09:08 Dose: 2.5 mg Magnesium Hydroxide (Milk Of Magnesia) 30 ml PO DAILYP PRN PRN Reason: Constipation Sodium Biphosphate/Sodium Phosphate (Fleets Adult) 1 dose WA Q3-4DAYS PRN PRN Reason: Constipation Sodium Chloride (Saline Flush) 10 ml IV Q8 [facility] Last Admin: 11/21/16 09:11 Dose: 10 ml Warfarin Sodium (Coumadin) 10 mg PO DAILY@1400 [facility] Last Admin: 11/21/16 09:10 Dose: 10 mg Medical - PN: A/P - Time Spent With Patient Total time spent is greater than 50% in coordination of care (as documented) at patient's floor/unit and/or counseling patient: (1) Infected decubitus ulcer Status: Acute Assessment and plan: much improved on IV vanco and zosyn continue same microbiology reviwed multiple organisms growing, so far only one sensitivity is back WIll follow up the rest and adjust antibiotics accordingly. Current Visit: Yes (2) Atrial fibrillation Status: Acute Assessment and plan: HR abnornormal yeterday Increase dose of digoxin back to 250mcg per day Increase coreg to 12.5mg bid monitor for now INR subtherapeutic, Increase dose of coumadin to 10mg once daily. Current Visit: No (3) Atrial fibrillation with RVR Status: Acute Assessment and plan: resolved. . Current Visit: Yes Medical - PN: Qual - Stroke Symptom Onset Unknown: No - VTE Deep Vein Thrombosis/Pulmonary Embolism Present on Admission: No
[2016-11-21] MEDS ORDERED: FLU VACC QS2016-17 36MOS UP/PF 60 MCG/0.5 ML SYRINGE IM ONE (10:00)
--- NOTE | 2016-11-21 13:36 | General Surgery Progress Note ---
Subjective Patient reports: no new complaints Narrative: Note initiated : 11/21/16 at 1:28 pm Service Date, if different from initiated Date: [] Patient: Branden Espinosa 55 y/o M admitted on 11/16/16 for Infected Decubitus Ulcer Rt Buttock/Rt Lower Leg. Chief Complaint: []Day # 6 CSSSI Right buttock pressure ulcer / Right leg ulcer Continues to be on IV antibiotics and local wound care. In bed Physical therapy with ROM exercises. Tolerating diet. RUFINA ; NO urinary complaints. Patient IS getting wound care, I V antibiotics and all his needs are met. We are WAITING TO APPEAL INSURANCE DENIAL for further care of this patient at a higher level of care institution. So far there has been NO RESPONSE by the insurance carrier to the messages left and attempts made to reach insurance [employer] or CM responsible. Will have to try again on WEDNESDAY November 23, 2016. Plan discussed with Dr. Alvarenga, Hospitalist Physician and [facility]. Objective Temp Pulse Resp BP Pulse Ox 99.1 F 68 14 101/53 92 11/21/16 08:00 11/21/16 08:00 11/21/16 08:00 11/21/16 08:00 11/21/16 08:00 Low grade Fever. But NO other constitutional symptoms. No changes in FELI. Good Cough, No Expectoration. Tolerating diet. RUFINA and veiling urine freely. IV site is clean. L/E. WOUND sites are clean. NO Odor NO crepitation and NO drainage. Wound c/s > 5 organisms. PROTEUS, STAPH, ENTEROCOCCUS, ACINETOBACTER AND MORGANELLA. Continues to be on Zosyn and Vancomycin. Lab results reviewed. - Additional Data Intake & Output - Last 24 hours: Intake & Output 11/19/16 11/20/16 11/21/16 11/22/16 05:59 05:59 05:59 05:59 Intake Total 1550 / 1550 540 / 540 2130 / 2130 50 / 50 Output Total 1230 / 1230 1825 / 1825 1100 / 1100 350 / 350 Balance 320 / 320 -1285 / -1285 1030 / 1030 -300 / -300 Weight 409 lb 405 lb 411 lb 1.6 oz - Labs 11/21/16 04:43 11/21/16 04:43 Diabetes panel 11/21/16 Range/Units 04:43 Sodium 139 (133-145) mmol/L Potassium 3.9 (3.3-5.1) mmol/L Chloride 102 (96-108) mmol/L Carbon Dioxide 27 (22-30) mmol/L BUN 5 L (6-20) mg/dl Creatinine 0.7 (0.7-1.2) mg/dl Glucose 80 (70-105) mg/dL Calcium 8.4 L (8.6-10.4) mg/dl AST 12 (0-37) U/l ALT 5 (0-40) U/l Alkaline Phosphatase 100 (39-117) U/L Total Protein 6.5 (5.9-8.4) gm/dL Albumin 2.6 L (3.2-5.2) gm/dL Triglycerides 113 (<150) mg/dl Calcium panel 11/21/16 Range/Units 04:43 Calcium 8.4 L (8.6-10.4) mg/dl Phosphorus 2.5 L (2.7-4.5) mg/dL Albumin 2.6 L (3.2-5.2) gm/dL Pituitary panel 11/21/16 Range/Units 04:43 Sodium 139 (133-145) mmol/L Potassium 3.9 (3.3-5.1) mmol/L Chloride 102 (96-108) mmol/L Carbon Dioxide 27 (22-30) mmol/L BUN 5 L (6-20) mg/dl Creatinine 0.7 (0.7-1.2) mg/dl Glucose 80 (70-105) mg/dL Calcium 8.4 L (8.6-10.4) mg/dl Adrenal panel 11/21/16 Range/Units 04:43 Sodium 139 (133-145) mmol/L Potassium 3.9 (3.3-5.1) mmol/L Chloride 102 (96-108) mmol/L Carbon Dioxide 27 (22-30) mmol/L BUN 5 L (6-20) mg/dl Creatinine 0.7 (0.7-1.2) mg/dl Glucose 80 (70-105) mg/dL Calcium 8.4 L (8.6-10.4) mg/dl Total Bilirubin 0.4 (0.0-1.0) mg/dL AST 12 (0-37) U/l ALT 5 (0-40) U/l Alkaline Phosphatase 100 (39-117) U/L Total Protein 6.5 (5.9-8.4) gm/dL Albumin 2.6 L (3.2-5.2) gm/dL Medical - PN: A/P - Time Spent With Patient Total time spent is greater than 50% in coordination of care (as documented) at patient's floor/unit and/or counseling patient: Assessment: Stabilizing and Responding to IV antibiotics and Local wound care. NEEDS comprehensive plan of care AND Discharge / Transfer Planing. PLAN : Continue current treatment. TO speak with insurance carrier and APPEAL DENIAL OF CARE. Following patient daily whilst hospitalized. . Greater than 35 minutes (1) Decubitus Ulcer Problem details: NEEDS transfer to higher level of care for co ordinated wound care, surgical debridemetn, ID Consult and Physical Therapy Status: Acute Current Visit: Yes (2) Ulcer of right lower extremity with fat layer exposed Problem details: Palliative wound care. Clean with NS and apply antibiotic soaked wet / dry dressing changes three times a day. Status: Chronic Current Visit: Yes
[2016-11-21] MEDS ORDERED: FLEETS ADULT ENEMA PR PRN (13:45)
[2016-11-21] MEDS ORDERED: BISACODYL 10 MG SUPP.RECT PR PRN (13:45)
[2016-11-21] MEDS ORDERED: MAGNESIUM HYDROXIDE 30 ML ORAL.SUSP PO PRN (13:45)
[2016-11-21] MEDS ORDERED: GABAPENTIN 300 MG CAPSULE PO PRN (13:45)
[2016-11-21] MEDS ORDERED: FUROSEMIDE 40 MG TABLET PO PRN (13:45)
[2016-11-21] MEDS ORDERED: ACETAMINOPHEN 325 MG TABLET PO PRN (13:45)
[2016-11-21] MEDS: VANCOMYCIN 1,500 MG in 0.9 % SODIUM CHLORIDE 500 ML IV SCH ×2 (13:49→16:33)
[2016-11-21] MEDS: GENTAMICIN SULFATE 40 MG, CLINDAMYCIN 300 MG, BACITRACIN 25,000 UNIT in SODIUM CHLORIDE... IRR SCH ×2 (13:50→20:14)
[2016-11-21] MEDS: DIGOXIN 125 MCG TABLET PO SCH (14:08)
[2016-11-21] MEDS: CARVEDILOL 12.5 MG TABLET PO SCH (16:33)
[2016-11-22] MEDS: PIPERACILLIN SODIUM/TAZOBACTAM 3.375 GM in DEXTROSE 5% IN WATER 50 ML IV SCH ×5 (00:45→23:53)
[2016-11-22] MEDS: 0.9 % SODIUM CHLORIDE 10 ML SYRINGE IV SCH ×4 (00:47→20:47)
[2016-11-22] MEDS: HYDROcodone/APAP 10/325MG TABLET PO PRN ×3 (06:39→19:18)
[2016-11-22] MEDS: CARVEDILOL 12.5 MG TABLET PO SCH ×2 (07:36→17:35)
[2016-11-22] MEDS: DOCUSATE SODIUM 100 MG CAPSULE PO SCH ×2 (08:41→20:47)
[2016-11-22] MEDS: HEPARIN 5,000 UNIT/ML VIAL SQ SCH ×2 (09:11→20:45)
[2016-11-22] MEDS: GENTAMICIN SULFATE 40 MG, CLINDAMYCIN 300 MG, BACITRACIN 25,000 UNIT in SODIUM CHLORIDE... IRR SCH ×3 (09:12→20:47)
[2016-11-22] MEDS: LISINOPRIL 5 MG TABLET PO SCH (09:14)
--- NOTE | 2016-11-22 11:06 | Internal Med Progress Note ---
Medical - PN: Subj Patient information: Note initiated : 11/22/16 at 11:04 am Service Date, if different from initiated Date: [] Patient: Branden Espinosa 55 y/o M admitted on 11/16/16 for Infected Decubitus Ulcer Rt Buttock/Rt Lower Leg. Chief Complaint: [] Interval history: Patient seen examined this AM Lying comfortably in bed tolerating po diet well awaiting to hear from Wound care/ Case management/ Patients insurance company for final disposition. Patient is considering changing his insurance if he can to help with the LTAC placement. I reviewed the patients wound cultures, at present all the bacterial which have been reported are sensitive to the present antibiotics vanco/ zosyn The patient has a left arm picc, Pertinent ROS: no cp , palpitations no headache, dizziness no cough, shortness of breath no abdominal pain, nausea or vomiting. - Constitutional Vitals: Vital Signs Temp Pulse Resp BP Pulse Ox 98.6 F 89 16 116/79 95 11/22/16 08:00 11/22/16 08:00 11/22/16 08:00 11/22/16 08:00 11/22/16 08:00 Period Temp Pulse Resp BP Sys/Andujar Pulse Ox Last 24 Hr 97.4 F-98.6 F 67-90 16-18 110-121/70-79 94-98 Intake and Output 11/21/16 11/22/16 11/22/16 21:59 05:59 13:59 Intake Total 1080 / 1080 250 / 250 410 / 410 Output Total 500 / 500 250 / 250 225 / 225 Balance 580 / 580 0 / 0 185 / 185 Weight 410 lb Intake & Output: Intake & Output 11/21/16 11/22/16 11/22/16 21:59 05:59 13:59 Intake Total 1080 / 1080 250 / 250 410 / 410 Output Total 500 / 500 250 / 250 225 / 225 Balance 580 / 580 0 / 0 185 / 185 Weight 410 lb Intake: IV 600 / 600 50 / 50 50 / 50 Dextrose 5% in Water 50 100 / 100 50 / 50 50 / 50 ml @ 100 mls/hr IV Q6 [facility] with Zosyn 3.375 gm Rx#: [id number] Sodium Chloride 0.9% 500 500 / 500 ml @ 333.3 mls/hr IV DAILY [facility] with Vancomycin 1,500 mg Rx#:[id number] Oral 480 / 480 200 / 200 360 / 360 Output: Urine Catheter Amount 225 / 225 Void Amount 500 / 500 250 / 250 Other: Meal Breakfast Percent of Meal Consumed 25% Feeding Ability Independent General appearance: morbidly obese, no acute distress - Head Head exam: Present: atraumatic, normal inspection - Eye Eye exam: Present: PERRL. Absent: periorbital swelling, periorbital tenderness , scleral icterus - ENT ENT exam: Present: mucous membranes moist - Neck Neck exam: Present: normal inspection - Respiratory Respiratory exam: Present: normal respiratory exam. Absent: chest wall tenderness, decreased breath sounds, stridor, wheezes - Cardiovascular Cardiovascular exam: Present: irregular rhythm, +S1, +S2 - GI/Abdominal GI/Abdominal exam: Present: normal bowel sounds, soft - Neurological Exam Neurological exam: Present: alert, CN II-XII intact, oriented X3 Medical - PN: Obj Da - Labs CBC & Chem 7: 11/21/16 04:43 11/21/16 04:43 Labs: Abnormal Lab Results 11/22/16 11/21/16 11/21/16 05:35 04:43 04:43 RBC Hgb Hct MCV RDW [place] % (Auto) Lymph # PT 17.7 H 16.6 H INR 1.4 H 1.3 H BUN 5 L Calcium 8.4 L Phosphorus 2.5 L Albumin 2.6 L Globulin 3.9 H Albumin/Globulin Ratio 0.7 L 11/21/16 11/20/16 11/20/16 04:43 05:00 05:00 RBC 3.11 L Hgb 10.4 L Hct 31.8 L MCV 102.2 H RDW 14.7 H Mcdonald % (Auto) 10.3 H Lymph # 1.3 L PT 16.2 H INR 1.3 H BUN 5 L Calcium 8.3 L Phosphorus Albumin 2.7 L Globulin Albumin/Globulin Ratio 0.8 L 11/20/16 05:00 RBC 3.15 L Hgb 10.5 L Hct 31.4 L MCV RDW [place]cd[place] % (Auto) Lymph # 1.0 L PT INR BUN Calcium Phosphorus Albumin Globulin Albumin/Globulin Ratio Meds: Medications Acetaminophen (Tylenol) 650 mg PO Q6HP PRN PRN Reason: PAIN/FEVER > 101 Acetaminophen/Hydrocodone Bitart ([place] 10/325mg) 2 tab PO Q6HP PRN PRN Reason: Pain Last Admin: 11/22/16 06:39 Dose: 2 tab Bisacodyl (Dulcolax) 10 mg [place] Q2-3DAYS PRN PRN Reason: Constipation Carvedilol (Coreg) 12.5 mg PO BIDCC [facility] Last Admin: 11/22/16 07:36 Dose: 12.5 mg Digoxin (Lanoxin) 125 mcg PO DAILY@1400 [facility] Last Admin: 11/21/16 14:08 Dose: 125 mcg Docusate Sodium (Colace) 100 mg PO BID [facility] Last Admin: 11/22/16 08:41 Dose: Not Given Furosemide (Lasix) 40 mg PO BIDP PRN PRN Reason: weight gain Gabapentin (Neurontin) 600 mg PO TIDP PRN PRN Reason: NERVE PAIN Heparin Sodium (Porcine) (Heparin) 5,000 unit SQ Q12 [facility] Last Admin: 11/22/16 09:11 Dose: 5,000 unit Heparin Sodium (Porcine) (Heparin Flush) 2 ml IV Q12 [facility] Last Admin: 11/22/16 09:13 Dose: 2 ml Gentamicin Sulfate 40 mg/Clindamycin Phosphate 300 mg/Bacitracin 25,000 unit/ Sodium Chloride 503 mls @ 1 mls/hr IRR BID [facility] Last Admin: 11/22/16 09:12 Dose: 1 mls/hr Piperacillin Sod/Tazobactam (Sod 3.375 gm/ Dextrose) 50 mls @ 100 mls/hr IV Q6 [facility] Last Infusion: 11/22/16 06:15 Dose: Infused Vancomycin HCl 1,500 mg/ (Sodium Chloride) 500 mls @ 333.3 mls/hr IV DAILY [facility] Last Infusion: 11/21/16 18:10 Dose: Infused Lisinopril (Zestril) 2.5 mg PO DAILY [facility] Last Admin: 11/22/16 09:14 Dose: 2.5 mg Magnesium Hydroxide (Milk Of Magnesia) 30 ml PO DAILYP PRN PRN Reason: Constipation Sodium Biphosphate/Sodium Phosphate (Fleets Adult) 1 dose [place] Q3-4DAYS PRN PRN Reason: Constipation Sodium Chloride (Saline Flush) 10 ml IV Q8 [facility] Last Admin: 11/22/16 07:13 Dose: 10 ml Warfarin Sodium (Coumadin) 12.5 mg PO DAILY@1400 [facility] Medical - PN: A/P - Time Spent With Patient Total time spent is greater than 50% in coordination of care (as documented) at patient's floor/unit and/or counseling patient: (1) Infected decubitus ulcer Status: Acute Assessment and plan: much improved on IV vanco and zosyn continue same microbiology reviewed Current Visit: Yes (2) Atrial fibrillation Status: Acute Assessment and plan: stable, On digoxin 250mcg per day coreg to 12.5mg bid monitor for now INR subtherapeutic, Increase dose of coumadin to 12.5 daily, check INR daily, does not report any bleeding. Current Visit: No Medical - PN: Qual - Stroke Symptom Onset Unknown: No - VTE Deep Vein Thrombosis/Pulmonary Embolism Present on Admission: No
[2016-11-22] MEDS: VANCOMYCIN 1,500 MG in 0.9 % SODIUM CHLORIDE 500 ML IV SCH (12:13)
[2016-11-22] MEDS: DIGOXIN 125 MCG TABLET PO SCH (13:29)
[2016-11-22] MEDS ORDERED: WARFARIN 5 MG TABLET PO SCH ×2 (14:00)
[2016-11-23] MEDS: PIPERACILLIN SODIUM/TAZOBACTAM 3.375 GM in DEXTROSE 5% IN WATER 50 ML IV SCH ×4 (05:30→23:44)
[2016-11-23] MEDS: HYDROcodone/APAP 10/325MG TABLET PO PRN ×4 (05:40→20:06)
[2016-11-23] MEDS: 0.9 % SODIUM CHLORIDE 10 ML SYRINGE IV SCH ×4 (06:11→20:48)
[2016-11-23] MEDS: DOCUSATE SODIUM 100 MG CAPSULE PO SCH ×2 (08:05→20:08)
[2016-11-23] MEDS: LISINOPRIL 5 MG TABLET PO SCH (08:05)
[2016-11-23] MEDS: CARVEDILOL 12.5 MG TABLET PO SCH ×2 (08:06→18:04)
[2016-11-23] MEDS: HEPARIN 5,000 UNIT/ML VIAL SQ SCH ×2 (08:09→20:07)
--- NOTE | 2016-11-23 08:13 | General Surgery Progress Note ---
Subjective Patient reports: other (BLEEDING and blood tinged dressings RIGHT buttock wound last evening. ) Narrative: Note initiated : 11/23/16 at 8:11 am Service Date, if different from initiated Date: [] Patient: Branden Espinosa 55 y/o M admitted on 11/16/16 for Infected Decubitus Ulcer Rt Buttock/Rt Lower Leg. Chief Complaint: []Uneventful night , EXCEPT for blood tinged dressings and some bleeding from RIGHT buttock wound. Objective Temp Pulse Resp BP Pulse Ox 98.1 F 58 L 18 121/61 91 11/23/16 07:11 11/23/16 07:11 11/23/16 07:11 11/23/16 07:11 11/23/16 07:11 AVSS. NO acute changes in FELI. Patient moves well in bed. 5' 11" tall and Weight 410 lbs I saw patient with Faye FRANKLIN this morning. I will change dressings and see his wound later this morning - Additional Data Intake & Output - Last 24 hours: Intake & Output 11/21/16 11/22/16 11/23/16 11/24/16 05:59 05:59 05:59 05:59 Intake Total 2130 / 2130 1380 / 1380 1040 / 1040 50 / 50 Output Total 1100 / 1100 1100 / 1100 925 / 925 300 / 300 Balance 1030 / 1030 280 / 280 115 / 115 -250 / -250 Weight 411 lb 1.6 oz 410 lb 410 lb - Labs 11/21/16 04:43 11/21/16 04:43 Medical - PN: A/P - Time Spent With Patient Total time spent is greater than 50% in coordination of care (as documented) at patient's floor/unit and/or counseling patient: Super morbid Obesity and Deconditioning. Open wound right buttock with h/o Bleeding. ( C/S Over 5 bacteria ) Right leg colonized wound , CHRONIC So far insurance DENIAL for needed care. Patient needs to go to a hospital where he can be evaluated under [place] for wound debridement and other supportive care. This is NOT available at this hospital. Trying to reach insurance to appeal this denial of care. Will request a Physical Therapy Consult for ROM exercises AND Nutrition consult / Assessment and teaching for weight loss. 15 - 24 minutes (1) Decubitus Ulcer Problem details: NEEDS transfer to higher level of care for co ordinated wound care, surgical debridemetn, ID Consult and Physical Therapy Status: Acute Current Visit: Yes (2) Ulcer of right lower extremity with fat layer exposed Problem details: Palliative wound care. Clean with NS and apply antibiotic soaked wet / dry dressing changes three times a day. Status: Chronic Current Visit: Yes
[2016-11-23] MEDS: VANCOMYCIN 1,500 MG in 0.9 % SODIUM CHLORIDE 500 ML IV SCH (09:26)
[2016-11-23] MEDS: GENTAMICIN SULFATE 40 MG, CLINDAMYCIN 300 MG, BACITRACIN 25,000 UNIT in SODIUM CHLORIDE... IRR SCH ×2 (11:41→23:44)
--- NOTE | 2016-11-23 13:36 | Internal Med Progress Note ---
Medical - PN: Subj Patient information: Note initiated : 11/23/16 at 1:34 pm Service Date, if different from initiated Date: [] Patient: Branden Espinosa 55 y/o M admitted on 11/16/16 for Infected Decubitus Ulcer Rt Buttock/Rt Lower Leg. Chief Complaint: [] Interval history: Pt seen examined no acute overnight events doing well Hr on the lower end, but he does not have much activity, his HR can go up resulting in afib with rvr if we cut down on his meds He has no dizziness, syncope or presyncope The patient is awaiting discharge for wound care at [facility] vs higher facility. The patient wound care physician and Case management are coordinating to contest with the insurance company on the denial of service, as well as working on other options to see if debridement can be done. Pertinent ROS: no cp, sob no headache, dizziness no palpitations no abdominal pain, nausea or vomiting no cough or wheezing. - Constitutional Vitals: Vital Signs Temp Pulse Resp BP Pulse Ox 98.1 F 58 L 18 121/61 91 11/23/16 07:11 11/23/16 07:11 11/23/16 07:11 11/23/16 07:11 11/23/16 07:11 Period Temp Pulse Resp BP Sys/Andujar Pulse Ox Last 24 Hr 98.1 F-98.8 F 58-71 12-18 105-121/61-79 91-98 Intake and Output 11/22/16 11/23/16 11/23/16 21:59 05:59 13:59 Intake Total 290 / 290 290 / 290 1380 / 1380 Output Total 300 / 300 400 / 400 700 / 700 Balance -10 / -10 -110 / -110 680 / 680 Weight 410 lb Intake & Output: Intake & Output 11/22/16 11/23/16 11/23/16 21:59 05:59 13:59 Intake Total 290 / 290 290 / 290 1380 / 1380 Output Total 300 / 300 400 / 400 700 / 700 Balance -10 / -10 -110 / -110 680 / 680 Weight 410 lb Intake: IV 50 / 50 50 / 50 100 / 100 Dextrose 5% in Water 50 50 / 50 50 / 50 100 / 100 ml @ 100 mls/hr IV Q6 ANGELA with Zosyn 3.375 gm Rx#: [id number] Oral 240 / 240 240 / 240 1280 / 1280 Output: Void Amount 300 / 300 400 / 400 700 / 700 Other: Meal Breakfast Percent of Meal Consumed 100% # Voids 1 # Bowel Movements 1 1 General appearance: cooperative, no acute distress - Head Head exam: Present: atraumatic, normal inspection - Respiratory Respiratory exam: Present: normal respiratory exam. Absent: accessory muscle use, stridor, wheezes - Cardiovascular Cardiovascular exam: Present: irregular rhythm, +S1, +S2 - GI/Abdominal GI/Abdominal exam: Present: normal bowel sounds, soft - Neurological Exam Neurological exam: Present: alert, CN II-XII intact, oriented X3 Medical - PN: Obj Da - Labs CBC & Chem 7: 11/21/16 04:43 11/21/16 04:43 Labs: Abnormal Lab Results 11/23/16 11/22/16 11/21/16 05:45 05:35 04:43 RBC Hgb Hct MCV RDW Anderson % (Auto) Lymph # PT 19.7 H 17.7 H INR 1.6 H 1.4 H BUN 5 L Calcium 8.4 L Phosphorus 2.5 L Albumin 2.6 L Globulin 3.9 H Albumin/Globulin Ratio 0.7 L 11/21/16 11/21/16 04:43 04:43 RBC 3.11 L Hgb 10.4 L Hct 31.8 L MCV 102.2 H RDW 14.7 H Anderson % (Auto) 10.3 H Lymph # 1.3 L PT 16.6 H INR 1.3 H BUN Calcium Phosphorus Albumin Globulin Albumin/Globulin Ratio Meds: Medications Acetaminophen (Tylenol) 650 mg PO Q6HP PRN PRN Reason: PAIN/FEVER > 101 Acetaminophen/Hydrocodone Bitart ([place] 10/325mg) 2 tab PO Q6HP PRN PRN Reason: Pain Last Admin: 11/23/16 10:10 Dose: 2 tab Bisacodyl (Dulcolax) 10 mg DC Q2-3DAYS PRN PRN Reason: Constipation [facility] Last Admin: 11/23/16 08:06 Dose: 12.5 mg Digoxin (Lanoxin) 250 mcg PO DAILY@1400 ANGELA Docusate Sodium (Colace) 100 mg PO BID [facility] Last Admin: 01/16/17 08:05 Dose: Not Given Furosemide (Lasix) 40 mg PO BIDP PRN PRN Reason: weight gain Gabapentin (Neurontin) 600 mg PO TIDP PRN PRN Reason: NERVE PAIN Heparin Sodium (Porcine) (Heparin) 5,000 unit SQ Q12 [facility] Last Admin: 11/23/16 08:09 Dose: 5,000 unit Heparin Sodium (Porcine) (Heparin Flush) 2 ml IV Q12 [facility] Last Admin: 11/23/16 11:27 Dose: 2 ml Gentamicin Sulfate 40 mg/Clindamycin Phosphate 300 mg/Bacitracin 25,000 unit/ Sodium Chloride 503 mls @ 1 mls/hr IRR BID [facility] Last Admin: 11/23/16 11:41 Dose: 1 mls/hr Piperacillin Sod/Tazobactam (Sod 3.375 gm/ Dextrose) 50 mls @ 100 mls/hr IV Q6 [facility] Last Infusion: 11/23/16 12:05 Dose: Infused Vancomycin HCl 1,500 mg/ (Sodium Chloride) 500 mls @ 333.3 mls/hr IV DAILY [facility] Last Admin: 11/23/16 09:26 Dose: 333.3 mls/hr Lisinopril (Zestril) 2.5 mg PO DAILY [facility] Last Admin: 11/23/16 08:05 Dose: 2.5 mg Magnesium Hydroxide (Milk Of Magnesia) 30 ml PO DAILYP PRN PRN Reason: Constipation Sodium Biphosphate/Sodium Phosphate (Fleets Adult) 1 dose DC Q3-4DAYS PRN PRN Reason: Constipation Sodium Chloride (Saline Flush) 10 ml IV Q8 [facility] Last Admin: 11/23/16 12:15 Dose: 10 ml Warfarin Sodium (Coumadin) 15 mg PO DAILY@1400 [facility] Medical - PN: A/P - Time Spent With Patient Total time spent is greater than 50% in coordination of care (as documented) at patient's floor/unit and/or counseling patient: (1) Infected decubitus ulcer Status: Acute Assessment and plan: much improved on IV vanco and zosyn continue same microbiology reviewed get labs in AM Current Visit: Yes (2) Atrial fibrillation Status: Acute Assessment and plan: stable, On digoxin 250mcg per day coreg to 12.5mg bid monitor for now INR subtherapeutic at 1.6 Increase dose of coumadin to 15 daily, check INR daily, he has some bleeding from his wound dressings now. Current Visit: No Medical - PN: Qual - Stroke Symptom Onset Unknown: No - VTE Deep Vein Thrombosis/Pulmonary Embolism Present on Admission: No
[2016-11-23] MEDS: DIGOXIN 125 MCG TABLET PO SCH (13:46)
[2016-11-23] MEDS: WARFARIN 5 MG TABLET PO SCH (13:46)
--- NOTE | 2016-11-23 13:50 | General Surgery Progress Note ---
Subjective Narrative: Note initiated : 11/23/16 at 1:29 pm Service Date, if different from initiated Date: [] Patient: Branden Esipnosa 55 y/o M admitted on 11/16/16 for Infected Decubitus Ulcer Rt Buttock/Rt Lower Leg. Chief Complaint: [] I saw this patient along with the Mary Kay, nurse practitioner, and Kia charge nurse on [facility]. At his bedside we changed his dressings and I helped the floor nurse examine and explore the depth of this wound with her hands, as well as teach her the technique of cleaning, soaking, and packing. This is a very deep gluteal wound. 60 mL bulb syringe fits into this wound and extends further, bending/tunnelling off to the right and is just above the lumbar-sacral region. This wound is NOT suitable for MIST treatment. It is a DEEP wound with multiple pockets. It is not possible to have an exact idea of this wound unless it is explored in the operating room, due to its depth. I suspect that there are other pockets which need exploration and evacuation. Over the last 24 hours there was a change in the drainage color, odor, and amount. The drainage is now more greenish, thick, and has odor to it. THIS IS AN INTERVAL DEVELOPMENT. This is very worrisome for complex polymicrobial wound infection with super added other infections as well. Additionally, there is some old blood in this wound which is manifesting as blood-tinged and blood soaked dressings. DRESSING CHANGES ARE time-consuming and each dressing change takes more than 15 minutes at a time. Currently the wounds are DRESSED 3 times a day and I'll continue this regimen AT this time. Clearly this patient has failed outpatient treatment, his decubitus ulcer of right buttock is Stage III, but I am not positive about stage IV. There are additional pockets which need to be explored, evacuated and manipulated. Going by his wounds over the last few days and the need for frequent dressing changes requiring more than 15 minutes at a time, I strongly feel that this patient needs continuing , ongoing supervision by nursing staff in the hospital inpatient setting and until a facility is found, where this patient can be transferred to. I'm happy to speak with any receiving physician Specialist Dr. chawla etc. as appropriate I have entered detailed wound care orders . They are also included in this note. I have spoken with Rosa CUTLER / YANIRA to review these orders and advise. I AM AWAITING CALL BACK from Rosa or Saurabh CM I also discussed this case at length with Dr. Audie Mathur, Plastic Surgeon in the [place] and at [facility]. I have requested him to come to [facility] to see the patient along with myself and nursing staff. Wound dressing order is changed because of new development. There is change in quality of drainage with odor. WOUND ORDERS TO BE APPLIED AND CARRIED OUT FOR BOTH RLE & RIGHT BUTTOCK BY NURSING STAFF TID: 1) Irrigate wound and dragan-wound with Vashe wound solution 2) Soak gauze with Vashe & allow moisten gauze (with Vashe solution) to RLE site & inside the buttock wound for 7 min. 3) At 3 minutes of sit time, refresh wound with gauze (using bulb syringe) with additional Vashe solution allowing Vashe to pool in/on wound. 4) After 7 min of gauze with Vashe contact time, remove gauze, and irrigate wound area with SALINE; for buttock wound use 200 ML for irrigation. 5) After irrigation of the buttock wound, pack wound with moisten GCB soaked, unfolded, Kerlix roll gauze fitted into the buttock wound. Cover with ABD pad and secure pad using OmniFix. 6) Similar care for the RLE wound using Vashe for cleansing followed by GCB soaked moisten dry dressing. Plan discussed with Hospitalist, Dr. Alvarenga. Objective Temp Pulse Resp BP Pulse Ox 98.1 F 58 L 18 121/61 91 11/23/16 07:11 11/23/16 07:11 11/23/16 07:11 11/23/16 07:11 11/23/16 07:11 - Additional Data Intake & Output - Last 24 hours: Intake & Output 11/21/16 11/22/16 11/23/16 11/24/16 05:59 05:59 05:59 05:59 Intake Total 2130 / 2130 1380 / 1380 1540 / 1540 1380 / 1380 Output Total 1100 / 1100 1100 / 1100 925 / 925 700 / 700 Balance 1030 / 1030 280 / 280 615 / 615 680 / 680 Weight 411 lb 1.6 oz 410 lb 410 lb - Labs 11/21/16 04:43 11/21/16 04:43 Medical - PN: A/P - Time Spent With Patient Total time spent is greater than 50% in coordination of care (as documented) at patient's floor/unit and/or counseling patient: (1) Decubitus Ulcer Problem details: NEEDS transfer to higher level of care for co ordinated wound care, surgical debridemetn, ID Consult and Physical Therapy Status: Acute Current Visit: Yes (2) Ulcer of right lower extremity with fat layer exposed Problem details: Palliative wound care. Clean with NS and apply antibiotic soaked wet / dry dressing changes three times a day. Status: Chronic Current Visit: Yes
--- NOTE | 2016-11-23 19:00 | General Surgery Progress Note ---
Subjective Patient reports: other (ReG. Transfer to [facility] tomorrow. Accepting Surgeon: Dr. Brian Nation. ) Narrative: Note initiated : 11/23/16 at 6:54 pm Service Date, if different from initiated Date: [] Patient: Branden Espinosa 55 y/o M admitted on 11/16/16 for Infected Decubitus Ulcer Rt Buttock/Rt Lower Leg. Chief Complaint: []I spoke at length with Dr. Brian Nation MD Accepting Surgeon at [facility], Updated him with details of patient's situation, status and wound care / surgery related issues. Same discussed with Dr. Arturo Alvarenga. Hospitalist Physician. Spoke with Patient and up dated him of developments, He understands and Agrees with treatment plan. ANTICIPATE that patient will be transferred to [facility] by tomorrow 11/24/2016 when bed is available. Objective Temp Pulse Resp BP Pulse Ox 98.3 F 70 18 144/88 96 11/23/16 16:00 11/23/16 16:00 11/23/16 16:00 11/23/16 16:00 11/23/16 16:00 - Additional Data Intake & Output - Last 24 hours: Intake & Output 11/21/16 11/22/16 11/23/16 11/24/16 05:59 05:59 05:59 05:59 Intake Total 2130 / 2130 1380 / 1380 1540 / 1540 2360 / 2360 Output Total 1100 / 1100 1100 / 1100 925 / 925 700 / 700 Balance 1030 / 1030 280 / 280 615 / 615 1660 / 1660 Weight 411 lb 1.6 oz 410 lb 410 lb 410 lb - Labs 11/21/16 04:43 11/21/16 04:43 Medical - PN: A/P - Time Spent With Patient Total time spent is greater than 50% in coordination of care (as documented) at patient's floor/unit and/or counseling patient: (1) Decubitus Ulcer Problem details: NEEDS transfer to higher level of care for co ordinated wound care, surgical debridemetn, ID Consult and Physical Therapy Status: Acute Current Visit: Yes (2) Ulcer of right lower extremity with fat layer exposed Problem details: Palliative wound care. Clean with NS and apply antibiotic soaked wet / dry dressing changes three times a day. Status: Chronic Current Visit: Yes
[2016-11-24 05:08] LABS: Basophils # (Auto) 0.1 K/mcL (0.0-0.3); Basophils % (Auto) 1.1 % (0.0-2.0); Eosinophils # (Auto) 0.3 K/mcL (0.0-0.7); Eosinophils % (Auto) 5.7 % (0.0-7.0); Granulocytes % (Auto) 61.5 % (38.0-78.0); Lymphocytes # (Auto) 1.5 K/mcL (1.5-4.8); Lymphocytes % (Auto) 25.6 % (15.5-49.0); Mean Cell Volume 100.8 fL (80.0-100.0); Mean Corpuscular HGB Conc 32.9 g/dL (31.0-36.0); Mean Corpuscular Hemoglobin 33.2 pg (26.0-34.0); Monocytes # (Auto) 0.4 K/mcL (0.1-0.9); Monocytes % (Auto) 6.1 % (1.0-9.0); Platelet Count 260 K/mcL (140-440); RBC 3.34 M/mcL (4.50-5.90); Red Cell Distribution Width 14.1 % (11.5-14.5)
[2016-11-24 05:54] LABS: ALT/SGPT < 5 U/l (0-40); Albumin 2.8 gm/dL (3.2-5.2); Albumin/Globulin Ratio 0.7 (1.0-2.3); Alkaline Phosphatase 102 U/L (39-117); Bilirubin,Direct < 0.2 mg/dL (0.0-0.3); Blood Urea Nitrogen 7 mg/dl (6-20); Gamma Glutamyl Transpeptidase 67 U/L (8-61); Phosphorous 2.5 mg/dL (2.7-4.5); Uric Acid 4.3 mg/dL (2.5-8.0)
[2016-11-24] MEDS: PIPERACILLIN SODIUM/TAZOBACTAM 3.375 GM in DEXTROSE 5% IN WATER 50 ML IV SCH ×3 (06:52→18:32)
[2016-11-24] MEDS: 0.9 % SODIUM CHLORIDE 10 ML SYRINGE IV SCH ×3 (06:53→21:47)
[2016-11-24] MEDS: HYDROcodone/APAP 10/325MG TABLET PO PRN ×2 (07:06→14:25)
[2016-11-24] MEDS ORDERED: LOPERAMIDE 2 MG CAPSULE PO ONE (07:29)
[2016-11-24] MEDS: CARVEDILOL 12.5 MG TABLET PO SCH ×2 (07:47→16:43)
[2016-11-24] MEDS: DOCUSATE SODIUM 100 MG CAPSULE PO SCH ×2 (07:48→21:00)
[2016-11-24] MEDS: GENTAMICIN SULFATE 40 MG, CLINDAMYCIN 300 MG, BACITRACIN 25,000 UNIT in SODIUM CHLORIDE... IRR SCH ×2 (10:25→21:47)
[2016-11-24] MEDS: VANCOMYCIN 1,500 MG in 0.9 % SODIUM CHLORIDE 500 ML IV SCH (10:29)
[2016-11-24] MEDS: LISINOPRIL 5 MG TABLET PO SCH (11:42)
[2016-11-24] MEDS: HEPARIN 5,000 UNIT/ML VIAL SQ SCH ×2 (11:43→21:46)
[2016-11-24] MEDS: DIGOXIN 125 MCG TABLET PO SCH (14:25)
[2016-11-24] MEDS: WARFARIN 5 MG TABLET PO SCH (14:25)
[2016-11-24] MEDS ORDERED: LOPERAMIDE 2 MG CAPSULE PO PRN ×2 (15:02→18:08)
--- NOTE | 2016-11-24 18:13 | Internal Med Progress Note ---
Medical - PN: Subj Patient information: Note initiated : 11/24/16 at 6:11 pm Service Date, if different from initiated Date: [] Patient: Branden Espinosa 55 y/o M admitted on 11/16/16 for Infected Decubitus Ulcer Rt Buttock/Rt Lower Leg. Chief Complaint: [] Interval history: pt seen examined, no acute overnight events Was stable for D/C today Accepting physician is Dr Brian Nation, at [facility], unfortunately no bed available Pertinent ROS: Denies headache, dizziness Denies chest pain, palpitations Denies cough or shortness of breath Denies abdominal pain, nausea or vomiting. - Constitutional Vitals: Vital Signs Temp Pulse Resp BP Pulse Ox 98.6 F 76 20 135/86 96 11/24/16 16:00 11/24/16 16:00 11/24/16 16:00 11/24/16 16:00 11/24/16 16:00 Period Temp Pulse Resp BP Sys/Andujar Pulse Ox Last 24 Hr 97.9 F-98.6 F 71-86 12-20 108-135/68-86 91-96 Intake and Output 11/24/16 11/24/16 11/24/16 05:59 13:59 21:59 Intake Total 460 / 460 290 / 290 800 / 800 Output Total 400 / 400 300 / 300 650 / 650 Balance 60 / 60 -10 / -10 150 / 150 Intake & Output: Intake & Output 11/24/16 11/24/16 11/24/16 05:59 13:59 21:59 Intake Total 460 / 460 290 / 290 800 / 800 Output Total 400 / 400 300 / 300 650 / 650 Balance 60 / 60 -10 / -10 150 / 150 Intake: IV 50 / 50 50 / 50 Dextrose 5% in Water 50 50 / 50 50 / 50 ml @ 100 mls/hr IV Q6 ANGELA with Zosyn 3.375 gm Rx#: [id number] Oral 410 / 410 240 / 240 800 / 800 Output: Void Amount 400 / 400 300 / 300 650 / 650 Other: Meal Lunch Percent of Meal Consumed 100% # Bowel Movements 1 1 - Head Head exam: Present: atraumatic, normal inspection - Respiratory Respiratory exam: Present: normal respiratory exam. Absent: accessory muscle use, chest wall tenderness, wheezes - Cardiovascular Cardiovascular exam: Present: normal rate and rhythm, +S1, +S2 - Neurological Exam Neurological exam: Present: alert, CN II-XII intact, oriented X3. Absent: motor sensory deficit Medical - PN: Obj Da - Labs CBC & Chem 7: 11/24/16 04:39 11/24/16 04:39 Labs: Abnormal Lab Results 11/24/16 11/24/16 11/24/16 04:40 04:39 04:39 RBC 3.34 L Hgb 11.1 L Hct 33.6 L MCV 100.8 H PT 21.9 H INR 1.8 H Calcium 8.4 L Phosphorus 2.5 L GGT 67 H Albumin 2.8 L Globulin 3.9 H Albumin/Globulin Ratio 0.7 L 11/23/16 11/22/16 05:45 05:35 RBC Hgb Hct MCV PT 19.7 H 17.7 H INR 1.6 H 1.4 H Calcium Phosphorus GGT Albumin Globulin Albumin/Globulin Ratio Meds: Medications Acetaminophen (Tylenol) 650 mg PO Q6HP PRN PRN Reason: PAIN/FEVER > 101 Acetaminophen/Hydrocodone Bitart ([place] 10/325mg) 2 tab PO Q6HP PRN PRN Reason: Pain Last Admin: 11/24/16 14:25 Dose: 2 tab Bisacodyl (Dulcolax) 10 mg [place] Q2-3DAYS PRN PRN Reason: Constipation Carvedilol (Coreg) 12.5 mg PO [facility]IDCC [facility] Last Admin: 11/24/16 16:43 Dose: 12.5 mg Digoxin (Lanoxin) 250 mcg PO DAILY@1400 [facility] Last Admin: 11/24/16 14:25 Dose: 250 mcg Docusate Sodium (Colace) 100 mg PO BID [facility] Last Admin: 11/24/16 07:48 Dose: Not Given Furosemide (Lasix) 40 mg PO BIDP PRN PRN Reason: weight gain Gabapentin (Neurontin) 600 mg PO TIDP PRN PRN Reason: NERVE PAIN Heparin Sodium (Porcine) (Heparin) 5,000 unit SQ Q12 [facility] Last Admin: 11/24/16 11:43 Dose: 5,000 unit Heparin Sodium (Porcine) (Heparin Flush) 2 ml IV Q12 [facility] Last Admin: 11/24/16 14:26 Dose: 2 ml Gentamicin Sulfate 40 mg/Clindamycin Phosphate 300 mg/Bacitracin 25,000 unit/ Sodium Chloride 503 mls @ 1 mls/hr IRR BID [facility] Last Admin: 11/24/16 10:25 Dose: 1 mls/hr Piperacillin Sod/Tazobactam (Sod 3.375 gm/ Dextrose) 50 mls @ 100 mls/hr IV Q6 [facility] Last Admin: 11/24/16 12:28 Dose: 100 mls/hr Vancomycin HCl 1,500 mg/ (Sodium Chloride) 500 mls @ 333.3 mls/hr IV DAILY [facility] Last Admin: 11/24/16 10:29 Dose: 333.3 mls/hr Lisinopril (Zestril) 2.5 mg PO DAILY [facility] Last Admin: 11/24/16 11:42 Dose: 2.5 mg Loperamide HCl (Imodium) 2 mg PO Q6HP PRN PRN Reason: Diarrhea Magnesium Hydroxide (Milk Of Magnesia) 30 ml PO DAILYP PRN PRN Reason: Constipation Sodium Biphosphate/Sodium Phosphate (Fleets Adult) 1 dose VT Q3-4DAYS PRN PRN Reason: Constipation Sodium Chloride (Saline Flush) 10 ml IV Q8 [facility] Last Admin: 11/24/16 15:26 Dose: 10 ml Warfarin Sodium (Coumadin) 15 mg PO DAILY@1400 [facility] Last Admin: 11/24/16 14:25 Dose: 15 mg Medical - PN: A/P - Time Spent With Patient Total time spent is greater than 50% in coordination of care (as documented) at patient's floor/unit and/or counseling patient: (1) Infected decubitus ulcer Status: Acute Assessment and plan: on IV abx d/c when bed available at [facility] for debridement. Current Visit: Yes (2) Atrial fibrillation Status: Acute Assessment and plan: stable, On digoxin 250mcg per day coreg to 12.5mg bid monitor for now INR subtherapeutic at 1.68, but improvign, continue present dose of coumadin at 15mg Current Visit: No Medical - PN: Qual - Stroke Symptom Onset Unknown: No - VTE Deep Vein Thrombosis/Pulmonary Embolism Present on Admission: No
--- NOTE | 2016-11-24 21:06 | General Surgery Progress Note ---
Subjective Narrative: Note initiated : 11/24/16 at 9:04 pm Service Date, if different from initiated Date: [] Patient: Branden Espinosa 55 y/o M admitted on 11/16/16 for Infected Decubitus Ulcer Rt Buttock/Rt Lower Leg. Chief Complaint: []I saw patient twice this morning and later at noon. Changed his dressings. Patient awaits transfer to [facility] in [facility]. NO bed available as of today. WIll follow, whilst patient is in hospital. Objective Temp Pulse Resp BP Pulse Ox 98.2 F 79 12 111/60 93 11/24/16 20:00 11/24/16 20:00 11/24/16 20:00 11/24/16 20:00 11/24/16 20:00 - Additional Data Intake & Output - Last 24 hours: Intake & Output 11/22/16 11/23/16 11/24/16 11/25/16 05:59 05:59 05:59 05:59 Intake Total 1380 / 1380 1540 / 1540 3110 / 3110 1340 / 1340 Output Total 1100 / 1100 925 / 925 1300 / 1300 950 / 950 Balance 280 / 280 615 / 615 1810 / 1810 390 / 390 Weight 410 lb 410 lb 410 lb - Labs 11/24/16 04:39 11/24/16 04:39 Diabetes panel 11/24/16 Range/Units 04:39 Sodium 139 (133-145) mmol/L Potassium 4.1 (3.3-5.1) mmol/L Chloride 103 (96-108) mmol/L Carbon Dioxide 27 (22-30) mmol/L BUN 7 (6-20) mg/dl Creatinine 0.7 (0.7-1.2) mg/dl Glucose 84 (70-105) mg/dL Calcium 8.4 L (8.6-10.4) mg/dl AST 13 (0-37) U/l ALT < 5 (0-40) U/l Alkaline Phosphatase 102 (39-117) U/L Total Protein 6.7 (5.9-8.4) gm/dL Albumin 2.8 L (3.2-5.2) gm/dL Triglycerides 128 (<150) mg/dl Calcium panel 11/24/16 Range/Units 04:39 Calcium 8.4 L (8.6-10.4) mg/dl Phosphorus 2.5 L (2.7-4.5) mg/dL Albumin 2.8 L (3.2-5.2) gm/dL Pituitary panel 11/24/16 Range/Units 04:39 Sodium 139 (133-145) mmol/L Potassium 4.1 (3.3-5.1) mmol/L Chloride 103 (96-108) mmol/L Carbon Dioxide 27 (22-30) mmol/L BUN 7 (6-20) mg/dl Creatinine 0.7 (0.7-1.2) mg/dl Glucose 84 (70-105) mg/dL Calcium 8.4 L (8.6-10.4) mg/dl Adrenal panel 11/24/16 Range/Units 04:39 Sodium 139 (133-145) mmol/L Potassium 4.1 (3.3-5.1) mmol/L Chloride 103 (96-108) mmol/L Carbon Dioxide 27 (22-30) mmol/L BUN 7 (6-20) mg/dl Creatinine 0.7 (0.7-1.2) mg/dl Glucose 84 (70-105) mg/dL Calcium 8.4 L (8.6-10.4) mg/dl Total Bilirubin 0.4 (0.0-1.0) mg/dL AST 13 (0-37) U/l ALT < 5 (0-40) U/l Alkaline Phosphatase 102 (39-117) U/L Total Protein 6.7 (5.9-8.4) gm/dL Albumin 2.8 L (3.2-5.2) gm/dL Medical - PN: A/P - Time Spent With Patient Total time spent is greater than 50% in coordination of care (as documented) at patient's floor/unit and/or counseling patient: (1) Decubitus Ulcer Problem details: NEEDS transfer to higher level of care for co ordinated wound care, surgical debridemetn, ID Consult and Physical Therapy Status: Acute Current Visit: Yes (2) Ulcer of right lower extremity with fat layer exposed Problem details: Palliative wound care. Clean with NS and apply antibiotic soaked wet / dry dressing changes three times a day. Status: Chronic Current Visit: Yes
[2016-11-25] MEDS: PIPERACILLIN SODIUM/TAZOBACTAM 3.375 GM in DEXTROSE 5% IN WATER 50 ML IV SCH ×4 (00:26→18:10)
[2016-11-25] MEDS: 0.9 % SODIUM CHLORIDE 10 ML SYRINGE IV SCH ×2 (06:24→13:15)
[2016-11-25] MEDS: CARVEDILOL 12.5 MG TABLET PO SCH ×2 (08:39→18:10)
[2016-11-25] MEDS: HYDROcodone/APAP 10/325MG TABLET PO PRN ×2 (08:39→14:47)
--- NOTE | 2016-11-25 08:55 | General Surgery Progress Note ---
Subjective Narrative: Note initiated : 11/25/16 at 8:52 am Service Date, if different from initiated Date: [] Patient: Branden Espinosa 55 y/o M admitted on 11/16/16 for Infected Decubitus Ulcer Rt Buttock/Rt Lower Leg. Chief Complaint: []patient seen on rounds on progress reviewed with the nursinght events reported. No diarrhea during the night. He is still waiting for transfer to [facility]. Objective Temp Pulse Resp BP Pulse Ox 96.7 F L 75 12 123/76 91 11/25/16 06:59 11/25/16 06:59 11/25/16 06:59 11/25/16 06:59 11/25/16 04:00 no fever. Vital signs are stable. No changes in her physical examination. His morning dressing is to be changed. I saw his wounds yesterday along with the nurses with the dressing was changed. There are still deep pockets of purulent and necrotic fat in the buttock wound. This is stabilizing with local wound care. - Additional Data Intake & Output - Last 24 hours: Intake & Output 11/23/16 11/24/16 11/25/16 11/26/16 05:59 05:59 05:59 05:59 Intake Total 1540 / 1540 3110 / 3110 1565 / 1565 50 / 50 Output Total 925 / 925 1300 / 1300 2100 / 2100 275 / 275 Balance 615 / 615 1810 / 1810 -535 / -535 -225 / -225 Weight 410 lb 410 lb 410 lb - Labs 11/24/16 04:39 11/24/16 04:39 Medical - PN: A/P - Time Spent With Patient Total time spent is greater than 50% in coordination of care (as documented) at patient's floor/unit and/or counseling patient: no acute interval changes from last evening. I reviewed his progress and the plan of care with the nursing staff on the floor and with the nurse in charge. Will await developments. 15 - 24 minutes (1) Decubitus Ulcer Problem details: NEEDS transfer to higher level of care for co ordinated wound care, surgical debridemetn, ID Consult and Physical Therapy Status: Acute Current Visit: Yes (2) Ulcer of right lower extremity with fat layer exposed Problem details: Palliative wound care. Clean with NS and apply antibiotic soaked wet / dry dressing changes three times a day. Status: Chronic Current Visit: Yes
[2016-11-25] MEDS: VANCOMYCIN 1,500 MG in 0.9 % SODIUM CHLORIDE 500 ML IV SCH (09:21)
[2016-11-25] MEDS: DOCUSATE SODIUM 100 MG CAPSULE PO SCH (09:21)
[2016-11-25] MEDS: LISINOPRIL 5 MG TABLET PO SCH (09:22)
[2016-11-25] MEDS: GENTAMICIN SULFATE 40 MG, CLINDAMYCIN 300 MG, BACITRACIN 25,000 UNIT in SODIUM CHLORIDE... IRR SCH ×2 (11:02→16:50)
[2016-11-25] MEDS: WARFARIN 5 MG TABLET PO SCH (13:14)
[2016-11-25] MEDS: DIGOXIN 125 MCG TABLET PO SCH (13:15)
--- NOTE | 2016-11-25 14:26 | Internal Med Progress Note ---
Medical - PN: Subj Patient information: Note initiated : 11/25/16 at 2:24 pm Service Date, if different from initiated Date: [] Patient: Branden Espinosa 55 y/o M admitted on 11/16/16 for Infected Decubitus Ulcer Rt Buttock/Rt Lower Leg. Chief Complaint: [] Interval history: Patient seen examined no acute overnigt events Awaiting bed at [facility] patient has no new complaints. comfortable, Pertinent ROS: Denies headache, dizziness Denies chest pain, palpitations Denies cough or shortness of breath Denies abdominal pain, nausea or vomiting. - Constitutional Vitals: Vital Signs Temp Pulse Resp BP Pulse Ox 98.2 F 68 18 118/62 96 11/25/16 12:00 11/25/16 12:00 11/25/16 12:00 11/25/16 12:00 11/25/16 12:00 Period Temp Pulse Resp BP Sys/Andujar Pulse Ox Last 24 Hr 96.7 F-98.6 F 68-80 12-20 99-135/60-86 91-96 Intake and Output 11/25/16 11/25/16 11/25/16 05:59 13:59 21:59 Intake Total 175 / 175 520 / 520 Output Total 1000 / 1000 750 / 750 Balance -825 / -825 -230 / -230 Intake & Output: Intake & Output 11/25/16 11/25/16 11/25/16 05:59 13:59 21:59 Intake Total 175 / 175 520 / 520 Output Total 1000 / 1000 750 / 750 Balance -825 / -825 -230 / -230 Intake: IV 50 / 50 100 / 100 Dextrose 5% in Water 50 50 / 50 100 / 100 ml @ 100 mls/hr IV Q6 ANGELA with Zosyn 3.375 gm Rx#: [id number] Oral 125 / 125 420 / 420 Output: Void Amount 1000 / 1000 750 / 750 Other: Meal Breakfast Percent of Meal Consumed 75% Feeding Ability Assist with Tray Set Up # Bowel Movements 1 Exam: Constitutional; No Fever, cooperative, alert, not in distress. Morbidly obese Eyes- No icterus, Pupils equal, reactive, No periorbital swelling Ears- Ext ear normal, hearing normal to conversation. Neck- Midline trachea, supple Respiratory system: Air Entry equal on both sides, No crackles or wheezing, no rhonchi. CVS- Rate rhythm regular, S1,S2 heard, no gallop, no rub. Abdomen- Soft nontender abdomen, no organomegaly, no tenderness, no guarding or rigidity, DIRECTOR OF INFECTION CONTROL- AOOx3, moving all extremities, no focal deficit noted. Medical - PN: Obj Da - Labs CBC & Chem 7: 11/24/16 04:39 11/24/16 04:39 Labs: Abnormal Lab Results 11/25/16 11/24/16 11/24/16 04:18 04:40 04:39 RBC Hgb Hct MCV PT 24.8 H 21.9 H INR 2.2 H 1.8 H Calcium 8.4 L Phosphorus 2.5 L GGT 67 H Albumin 2.8 L Globulin 3.9 H Albumin/Globulin Ratio 0.7 L 11/24/16 11/23/16 04:39 05:45 RBC 3.34 L Hgb 11.1 L Hct 33.6 L MCV 100.8 H PT 19.7 H INR 1.6 H Calcium Phosphorus GGT Albumin Globulin Albumin/Globulin Ratio Meds: Medications Acetaminophen (Tylenol) 650 mg PO Q6HP PRN PRN Reason: PAIN/FEVER > 101 Acetaminophen/Hydrocodone Bitart (Cabins 10/325mg) 2 tab PO Q6HP PRN PRN Reason: Pain Last Admin: 11/25/16 08:39 Dose: 2 tab Bisacodyl (Dulcolax) 10 mg OR Q2-3DAYS PRN PRN Reason: Constipation Carvedilol (Coreg) 12.5 mg PO BIDCC [facility] Last Admin: 11/25/16 08:39 Dose: 12.5 mg Digoxin (Lanoxin) 250 mcg PO DAILY@1400 [facility] Last Admin: 11/25/16 13:15 Dose: 250 mcg Docusate Sodium (Colace) 100 mg PO BID [facility] Last Admin: 11/25/16 09:21 Dose: Not Given Furosemide (Lasix) 40 mg PO BIDP PRN PRN Reason: weight gain Gabapentin (Neurontin) 600 mg PO TIDP PRN PRN Reason: NERVE PAIN Heparin Sodium (Porcine) (Heparin Flush) 2 ml IV Q12 [facility] Last Admin: 11/25/16 12:20 Dose: 2 ml Gentamicin Sulfate 40 mg/Clindamycin Phosphate 300 mg/Bacitracin 25,000 unit/ Sodium Chloride 503 mls @ 1 mls/hr IRR BID [facility] Last Admin: 11/25/16 11:02 Dose: 1 mls/hr Piperacillin Sod/Tazobactam (Sod 3.375 gm/ Dextrose) 50 mls @ 100 mls/hr IV Q6 [facility] Last Infusion: 11/25/16 12:05 Dose: Infused Vancomycin HCl 1,500 mg/ (Sodium Chloride) 500 mls @ 333.3 mls/hr IV DAILY [facility] Last Admin: 11/25/16 09:21 Dose: 333.3 mls/hr Lisinopril (Zestril) 2.5 mg PO DAILY [facility] Last Admin: 11/25/16 09:22 Dose: 2.5 mg Loperamide HCl (Imodium) 2 mg PO Q6HP PRN PRN Reason: Diarrhea Magnesium Hydroxide (Milk Of Magnesia) 30 ml PO DAILYP PRN PRN Reason: Constipation Sodium Biphosphate/Sodium Phosphate (Fleets Adult) 1 dose OR Q3-4DAYS PRN PRN Reason: Constipation Sodium Chloride (Saline Flush) 10 ml IV Q8 [facility] Last Admin: 11/25/16 13:15 Dose: 10 ml Warfarin Sodium (Coumadin) 15 mg PO DAILY@1400 [facility] Last Admin: 11/25/16 13:14 Dose: 15 mg Medical - PN: A/P - Time Spent With Patient Total time spent is greater than 50% in coordination of care (as documented) at patient's floor/unit and/or counseling patient: (1) Infected decubitus ulcer Status: Acute Assessment and plan: on IV abx d/c when bed available at [facility] for debridement. Current Visit: Yes (2) Atrial fibrillation Status: Acute Assessment and plan: stable, On digoxin 250mcg per day coreg to 12.5mg bid monitor for now INR subtherapeutic at 2.2, at goal, continue present dose of coumadin at 15mg, monitor daily. Current Visit: No Medical - PN: Qual - Stroke Symptom Onset Unknown: No - VTE Deep Vein Thrombosis/Pulmonary Embolism Present on Admission: No
[2016-11-25] MEDS ORDERED: HYDROmorphone 2 MG/ML SYRINGE IV PRN (14:54)
--- NOTE | 2016-11-25 17:37 | Transfer Summary ---
Transfer Discharge Sum: Prov Patient information: Note initiated : 11/25/16 at 5:28 pm Service Date, if different from initiated Date: [] Patient: Branden Espinosa 55 y/o M admitted on 11/16/16 for Infected Decubitus Ulcer Rt Buttock/Rt Lower Leg. Chief Complaint: [] Date of admission: 11/16/16 19:18 Discharge Date: 11/25/16 Primary care physician: [f_Reg Prim Care Provider] Admitting clinician: Arturo Alvarenga Consults: 11/23/16 17:15 Consult to Physician [CONS] Routine Comment: Consulting Provider: Audie Mathur Reason For Exam: Physician to Consult WOund CAre consult - Dr Mckeon. Receiving physician/facility: Dr Biran Nation MD [facility] Transfer Discharge Sum: Diag - Discharge Diagnosis (1) Infected decubitus ulcer Status: Acute (2) Atrial fibrillation Status: Acute Transfer Discharge Sum: Med - Medications Active and Home Medications: Home Medications ferrous sulfate 325 mg (65 mg iron) tablet 325 mg PO BID #180 tab 05/29/16 [Rx Confirmed 11/16/16] digoxin 250 mcg tablet 250 mcg PO QDAY 90 Days 09/10/16 [Rx Confirmed 11/16/16] lisinopril 2.5 mg tablet 2.5 mg PO QDAY 90 Days 10/27/16 [Rx Confirmed 11/16/16] hydrocodone 10 mg-acetaminophen 325 mg tablet 2 tab PO Q6H PRN #180 tab [Rx Confirmed 11/16/16] Carvedilol [Coreg] 6.25 mg PO HS 11/20/16 [History Confirmed 11/20/16] Carvedilol [Coreg] 12.5 mg PO DAILY 11/20/16 [History Confirmed 11/20/16] Furosemide [Lasix] 40 mg PO BID PRN 11/20/16 [History Confirmed 11/20/16] Active Medications Acetaminophen (Tylenol) 650 mg PO Q6HP PRN PRN Reason: PAIN/FEVER > 101 Acetaminophen/Hydrocodone Bitart (Kasson 10/325mg) 2 tab PO Q6HP PRN PRN Reason: Pain Last Admin: 11/25/16 14:47 Dose: 2 tab Bisacodyl (Dulcolax) 10 mg NV Q2-3DAYS PRN PRN Reason: Constipation Carvedilol (Coreg) 12.5 mg PO BIDCC [facility] Last Admin: 11/25/16 08:39 Dose: 12.5 mg Digoxin (Lanoxin) 250 mcg PO DAILY@1400 [facility] Last Admin: 11/25/16 13:15 Dose: 250 mcg Docusate Sodium (Colace) 100 mg PO BID [facility] Last Admin: 11/25/16 09:21 Dose: Not Given Furosemide (Lasix) 40 mg PO BIDP PRN PRN Reason: weight gain Gabapentin (Neurontin) 600 mg PO TIDP PRN PRN Reason: NERVE PAIN Heparin Sodium (Porcine) (Heparin Flush) 2 ml IV Q12 [facility] Last Admin: 11/25/16 12:20 Dose: 2 ml Hydromorphone HCl (Dilaudid) 0.5 mg IV TID PRN PRN Reason: Prior to dressing change Last Admin: 11/25/16 16:48 Dose: 0.5 mg Gentamicin Sulfate 40 mg/Clindamycin Phosphate 300 mg/Bacitracin 25,000 unit/ Sodium Chloride 503 mls @ 1 mls/hr IRR BID [facility] Last Admin: 11/25/16 16:50 Dose: 1 mls/hr Piperacillin Sod/Tazobactam (Sod 3.375 gm/ Dextrose) 50 mls @ 100 mls/hr IV Q6 [facility] Last Infusion: 11/25/16 12:05 Dose: Infused Vancomycin HCl 1,500 mg/ (Sodium Chloride) 500 mls @ 333.3 mls/hr IV DAILY [facility] Last Admin: 11/25/16 09:21 Dose: 333.3 mls/hr Lisinopril (Zestril) 2.5 mg PO DAILY [facility] Last Admin: 11/25/16 09:22 Dose: 2.5 mg Loperamide HCl (Imodium) 2 mg PO Q6HP PRN PRN Reason: Diarrhea Magnesium Hydroxide (Milk Of Magnesia) 30 ml PO DAILYP PRN PRN Reason: Constipation Sodium Biphosphate/Sodium Phosphate (Fleets Adult) 1 dose NV Q3-4DAYS PRN PRN Reason: Constipation Sodium Chloride (Saline Flush) 10 ml IV Q8 [facility] Last Admin: 11/25/16 13:15 Dose: 10 ml Warfarin Sodium (Coumadin) 15 mg PO DAILY@1400 [facility] Last Admin: 11/25/16 13:14 Dose: 15 mg Transfer Discharge Sum: Hosp Hospital course: Mr. Espinosa is a 55 year old male who is morbidly obese, and Wheel chair bound, h/ o afib, gastric sleeve, who was sent to the ER by Dr Holt for IV antibiotics and wound debridement. The patient has h/o Decubitus ulcer on the right buttock, which has been managed by Dr Hlot in the outpatient wound clinic, the wound has been progressively worsening and has not been amenable to outpatient treatment, therefore the patient was sent in. The patient also has another wound on the right lower extremity which is an linear ulcer in the skin fold. In the hospital the patient was treated with IV vancomycin and IV Zosyn, the patients cultures from the wound and the leg seem to be sensitive to the present regime. A copy of the microbiology will be sent along with this transfer summary. The patient was evaluated in the hospital by our anesthesiologist Dr Anderson, who deemed the patient unsafe for anesthesia in this facility given his morbid obesity status, the patient weights approximately 410 lbs, and has BMI of 58, they did not have the equipment necessary to manage his condition. The patient was not deemed a candidate for local anesthesia given the size and the location of the wound. The wound is well described in the wound care / Dr Griggs notes and it seems to be having multiple pockets extending from the right buttock upto the lumbo sacral region, which cannot be reached. Therefore the plan is to debride the wound and then likely apply wound vac to help healing. The need for surgical debridement was discussed with the patient, who agreed for same, the patient was agreeable to tranfer to a higher facility for management. There were some insurance hurdles associated with transfer to [facility] facility, however given the need for acute debridement, Dr Holt spoke with Dr Nation at [facility], who reviewed the patients history and accepted the patient for further management. The patient has h/o HTN, CHF, well controlled,, AFib on coumadin with therapeutic INR of 2.2 today. The patient has a PICC in place for fourth mate antibiotics. - Time Spent with Patient Total time spent providing and/or coordinating transfer services: Greater than 30 minutes Transfer Discharge Sum: Exam - Constitutional Vitals: Vital Signs Temp Pulse Resp BP Pulse Ox 11/25/16 16:00 98.2 F 72 18 110/63 96 11/25/16 12:00 98.2 F 68 18 118/62 96 11/25/16 06:59 96.7 F L 75 12 123/76 91 11/25/16 04:00 80 12 113/78 91 11/25/16 00:00 73 12 99/67 91 11/24/16 20:00 98.2 F 79 12 111/60 93 Intake and Output 11/25/16 11/25/16 11/25/16 05:59 13:59 21:59 Intake Total 175 / 175 520 / 520 240 / 240 Output Total 1000 / 1000 750 / 750 Balance -825 / -825 -230 / -230 240 / 240 Intake: IV 50 / 50 100 / 100 Dextrose 5% in Water 50 50 / 50 100 / 100 ml @ 100 mls/hr IV Q6 ANGELA with Zosyn 3.375 gm Rx#: [id number] Oral 125 / 125 420 / 420 240 / 240 Output: Void Amount 1000 / 1000 750 / 750 Other: Meal Breakfast Lunch Percent of Meal Consumed 75% 100% Feeding Ability Assist with Tray Set Up # Bowel Movements 1 Additional comments: Constitutional; No Fever, cooperative, alert, not in distress. Morbidly obese Eyes- No icterus, Pupils equal, reactive, No periorbital swelling Ears- Ext ear normal, hearing normal to conversation. Neck- Midline trachea, supple Respiratory system: Air Entry equal on both sides, No crackles or wheezing, no rhonchi. CVS- normal rate, irregular rhythm., S1,S2 heard, no gallop, no rub. Abdomen- Soft nontender abdomen, no organomegaly, no tenderness, no guarding or rigidity, REINFORCING ROD LAYER- AOOx3, moving all extremities, no focal deficit noted. Transfer Discharge Sum: Data Procedures and tests throughout hospitalization: Pending Orders 11/16/16 19:40 Placement to Observation Stat 11/17/16 06:36 Consent for Procedure NOW Wound Care/Dressings PRN 11/17/16 13:28 Wound Care/Dressings Q12H 11/20/16 Dinner Regular Diet 11/21/16 13:45 Acetaminophen [Tylenol] 650 mg PO Q6HP PRN Bisacodyl [Dulcolax] 10 mg NV Q2-3DAYS PRN Furosemide [Lasix] 40 mg PO BIDP PRN Gabapentin [Neurontin] 600 mg PO TIDP PRN HYDROcodone/APAP 10/325MG [Kasson 10/325Mg] 2 tab PO Q6HP PRN Magnesium Hydroxide [Milk of Magnesia] 30 ml PO DAILYP PRN Na Phos,M-B/Na Phos,Di-Ba [Fleets Adult] 1 dose NV Q3-4DAYS PRN 11/21/16 14:00 0.9 % Sodium Chloride [Saline Flush] 10 ml IV Q8 Piperacillin Sodium/Tazobactam [Zosyn] 3.375 gm Dextrose 5% in Water 50 ml IV Q6 11/21/16 16:00 Vancomycin 1,500 mg 0.9 % Sodium Chloride [Sodium Chloride 0.9%] 500 ml IV DAILY 11/21/16 17:30 Carvedilol [Coreg] 12.5 mg PO BIDCC 11/21/16 21:00 Docusate Sodium [Colace] 100 mg PO BID Gentamicin Sulfate 40 mg Clindamycin [Cleocin] 300 mg Bacitracin 25,000 unit Sodium Chloride Irrig Solution [Sodium Chloride] 500 ml IRR BID Heparin Flush 2 ml IV Q12 11/22/16 09:00 Lisinopril [Zestril] 2.5 mg PO DAILY 11/23/16 08:10 Physical Therapy Eval & Tx DAILY 11/23/16 08:24 Thread Inspector Referral .Routine 11/23/16 14:00 Digoxin [Lanoxin] 250 mcg PO DAILY@1400 Warfarin [Coumadin] 15 mg PO DAILY@1400 11/23/16 16:35 Wound Care/Dressings TID 11/23/16 17:15 Consult to Physician [CONS] Routine 11/24/16 09:20 Notify ONCE 11/24/16 18:08 Loperamide [Imodium] 2 mg PO Q6HP PRN 11/25/16 14:54 HYDROmorphone [Dilaudid] 0.5 mg IV TID PRN 11/26/16 04:00 Prothrombin Time INR DAILY 11/26/16 08:00 Vancomycin,Trough Stat 11/26/16 20:00 Digoxin Urgent Transfer Discharge Sum: A/P - Problem Maintenance (1) Infected decubitus ulcer Status: Acute (2) Atrial fibrillation Status: Acute - Plan Functional capacity at transfer: wheelchair bound Overall status at transfer: patient is not back to baseline Disposition: Xfer Acute Care Hospital Quality Measure Queries - VTE Deep Vein Thrombosis/Pulmonary Embolism Present on Admission: No
== END 2016-11-25 18:30 | disposition short-term general hospital (02) ==
LOC: ED 15:11 → MEDSUR 19:15 → INTOOBSV 19:18 → ICU 11-20 10:50 → MEDSUR 11-21 12:00
PROVIDERS: ADMIT Internal Medicine; ATTEND Internal Medicine

== ENCOUNTER 2018-03-08 14:27 | Inpatient (IN) ==
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
[2018-03-08] MEDS ORDERED: LIDOCAINE JEL 2% 1 TUBE 30GM TOPICAL ONE (15:58)
[2018-03-08 16:44] LABS: Appearance,Urine CLEAR; Bacteria,Urine MOD /hpf (0); Bilirubin,Urine NEG (NEG); Color,Urine YELLOW; Glucose,Urine (UA) NEGATIVE (NEG); Leukocyte Esterase,Urine 250 /uL (NEG); Mucus,Urine FEW /hpf (0); Protein,Urine NEG (NEG); Specific Gravity,Urine 1.011 (1.000-1.035); Urine Blood NEG mg/dL (<0.03); Urine Hyaline Cast 9 /lpf (0-2); Urine RBC 5 /hpf (0-1); Urine Squamous Epithelial Cell 1 /hpf (0-4); Urine Transitional Epi Cells < 1 /hpf (0-2); Urine WBC 110 /hpf (0-4); Urobilinogen,Urine NEG (NEG)
[2018-03-08 17:46] LABS: Mean Cell Volume 101.9 fL (80.0-100.0); Mean Corpuscular HGB Conc 33.9 g/dL (31.0-36.0); Mean Corpuscular Hemoglobin 34.6 pg (26.0-34.0); Platelet Count 127 K/mcL (140-440); RBC 3.21 M/mcL (4.50-5.90); Red Cell Distribution Width 16.4 % (11.5-14.5)
[2018-03-08 18:05] LABS: ALT/SGPT 10 U/l (0-40); Albumin 3.4 gm/dL (3.2-5.2); Albumin/Globulin Ratio 0.8 (1.0-2.3); Alkaline Phosphatase 132 U/L (39-117); Blood Urea Nitrogen 39 mg/dl (6-20)
[2018-03-08 18:43] LABS: Anisocytosis 1+ (NONE SEEN); Band Neutrophils % 1 % (0-10); Eosinophils % (Manual) 2 % (0-7); Lymphocytes % 11 % (15-49); Macrocytosis 1+ (NONE SEEN); Monocytes % (Manual) 3 % (1-12); Platelet Estimate DECREASED (NORMAL); RBC Morphology ABNORM (NORMAL); Segmented Neutrophils % 84 % (38-78)
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
[2018-03-08] MEDS ORDERED: ACETAMINOPHEN 325 MG TABLET PO PRN (21:12)
[2018-03-08] MEDS ORDERED: CARVEDILOL 12.5 MG TABLET PO ONE (21:12)
[2018-03-08] MEDS ORDERED: FUROSEMIDE 100 MG/10 ML VIAL IV ONE (21:12)
[2018-03-08] MEDS ORDERED: ONDANSETRON 4 MG/2 ML VIAL IV PRN (21:12)
[2018-03-08] MEDS ORDERED: HYDROcodone/APAP 10/325MG TABLET PO PRN (21:12)
[2018-03-08] MEDS ORDERED: PHYTONADIONE 1 MG in 0.9 % SODIUM CHLORIDE 50 ML IV ONE (21:12)
[2018-03-08] MEDS ORDERED: PHYTONADIONE 10 MG/ML AMPUL ONE (22:59)
[2018-03-08] MEDS: 0.9 % SODIUM CHLORIDE 10 ML SYRINGE IV SCH (23:17)
[2018-03-09] MEDS ORDERED: 0.9 % SODIUM CHLORIDE 500 ML IV ONE (02:50)
[2018-03-09 05:21] LABS: Basophils # (Auto) 0 K/mcL (0.0-0.3); Basophils % (Auto) 0 % (0.0-2.0); Eosinophils # (Auto) 0.2 K/mcL (0.0-0.7); Granulocytes % (Auto) 75.8 % (38.0-78.0); Lymphocytes # (Auto) 0.7 K/mcL (1.5-4.8); Lymphocytes % (Auto) 12.3 % (15.5-49.0); Mean Cell Volume 102.8 fL (80.0-100.0); Mean Corpuscular HGB Conc 33.2 g/dL (31.0-36.0); Mean Corpuscular Hemoglobin 34.1 pg (26.0-34.0); Monocytes # (Auto) 0.5 K/mcL (0.1-0.9); Monocytes % (Auto) 7.9 % (1.0-12.0); Platelet Count 131 K/mcL (140-440); RBC 3.11 M/mcL (4.50-5.90); Red Cell Distribution Width 16.1 % (11.5-14.5)
[2018-03-09] MEDS ORDERED: 0.9 % SODIUM CHLORIDE 250 ML IV SCH (05:45)
[2018-03-09] MEDS ORDERED: DOPamine 400 MG in PREMIX 1 BAG IV SCH (05:45)
[2018-03-09 05:47] LABS: ALT/SGPT 10 U/l (0-40); Albumin/Globulin Ratio 0.7 (1.0-2.3); Alkaline Phosphatase 131 U/L (39-117); Bilirubin,Direct 0.7 mg/dL (0.0-0.3); Blood Urea Nitrogen 39 mg/dl (6-20); Gamma Glutamyl Transpeptidase 70 U/L (8-61); Uric Acid 19.8 mg/dL (2.5-8.0)
[2018-03-09] MEDS: 0.9 % SODIUM CHLORIDE 10 ML SYRINGE IV SCH ×3 (06:20→22:51)
[2018-03-09] MEDS ORDERED: CARVEDILOL 12.5 MG TABLET PO SCH (08:00)
[2018-03-09] MEDS ORDERED: ONDANSETRON 4 MG/2 ML VIAL IV PRN (09:27)
[2018-03-09] MEDS ORDERED: ACETAMINOPHEN 325 MG TABLET PO PRN (09:27)
[2018-03-09] MEDS ORDERED: PNEUMOCOCCAL 23-VAL P-SAC VAC 0.5 ML VIAL IM ONE (10:00)
[2018-03-09] MEDS: DOPamine 400 MG in PREMIX 1 BAG IV SCH ×3 (10:19→22:51)
--- NOTE | 2018-03-09 11:34 | Internal Med Progress Note ---
Medical - PN: Subj Patient information: Note initiated : 03/09/18 at 11:32 am Service Date, if different from initiated Date: [] Patient: Branden Espinosa 57 y/o M admitted on 03/08/18 for States he is here to be admitted/Renal Failure. Chief Complaint: f/u ARF Interval history: 03/08 The patient is a 57-year-old male with a history of morbid obesity, stage III chronic kidney disease, congestive heart failure, atrial fibrillation on warfarin who presents back to the emergency department from Dr. White office, where he has gone for follow-up after an ED visit yesterday. History is obtained in speaking to the patient, reviewing old records summarize, discussing the case with Dr. White. Patient reports that he's had diarrhea off and on all week long with some moderate abdominal pain. Both the abdominal pain and diarrhea of waxed and waned. Abdominal pains more in the lower abdomen. He's had no blood in his stool. He's noted no fevers or chills. He's had no nausea or vomiting associated with that. Patient presented the emergency department for evaluation yesterday. His body habitus is too large to fit into the CT scanner. Ultrasound revealed just limited information. He eventually decided to leave the hospital follow-up with primary care. Of note his lipase was elevated 183 however his creatinine was also 4.2, his last creatinine on February 23 was 1.8, prior to that in December was 1.3. He was aware of his elevated creatinine, but decided to follow up as an outpatient in any case. Today he presented to Dr. White's office for further follow-up. Had evidence of volume overload, edema/anasarca to the abdominal wall. He is put on significant amounts of weight, up to 499 pounds yesterday in the ED. He was directed back to the ED for further evaluation for likely admission at other this facility or in transfer if he were to require services we are unable to provide. Patient tells me today his dominant pain is actually low bit better, it's mild, more in the left lower. He had held his diuretic for 2 days, as he thought that it may be worsening his diarrhea. He had noted decreased urine output, and had tried to decrease his oral intake as well as we would not become volume overloaded. This morning however he he did take 520 mg torsemide tablets ( normally takes 320 mg tablets twice a day) and was urinating at home, produced urine in the office, also was able to urinate in the ED. Repeat creatinine in the office this morning is 4.0, in the ED this afternoon it was 3.7. Patient has no history of urinary retention (though bladder neck obstruction is noted in past history). Attempt was made to place Ruffin catheter in the ED today, however is difficult to expose the urethral meatus due to significant pannus, is unable to be placed. Limited ultrasound yesterday showed no gross hydronephrosis to suggest significant urinary retention. The patient has had progressive lower extremity edema, with anasarca up to his abdomen. He has noted some dyspnea over the last several days when he transfers from chair to to bed or other seating arrangement. He may have noticed a little worsening of the dyspnea when lying supine. He's had no chest pain or tightness. He does have a history of atrial fibrillation and occasionally feels palpitations. Patient is on warfarin for atrial fibrillation. His INR was elevated at 5.5 on Wednesday, was 4.9 yesterday, is now 6.3. He states he last took warfarin on evening, had been holding it secondary to his elevated INR. He's noted no bleeding or bruising, no hematuria, no blood in his stools. Denied fever, chills. Does complain of pain at the left TMP region for several days. No dental pain. After evaluation this afternoon, his white count remains normal, he does not have an elevated lactate, his creatinine is improving. It is anticipated that he will not need any surgical procedures or imaging and thus can be cared for at this facility. He is being admitted for further evaluation and treatment of acute renal failure and coagulopathy. 03/09 Patient had pulse in the 70s to 90s yesterday evening, received his evening Coreg. Subsequently had slow ventricular response, pulse in the 30s at times. Also had low blood pressures with a right forearm cough. Consistently low. 500 mL's of fluid given back. Remained hypotensive. This morning still hypotensive and bradycardic, peripheral dopamine started with good response and heart rate as well as blood pressure. Urine output picked up after starting dopamine. He received 80 mg of furosemide last evening without much effect. Creatinine down to 3.6 today. NR down to 4.5. Still has some left lower quadrant pain, no bowel movement for the last 3 days. Pain is unchanged. - Constitutional Vitals: Vital Signs Temp Pulse Resp BP Pulse Ox 97.5 F 68 16 118/67 96 03/09/18 07:06 03/09/18 07:06 03/09/18 07:06 03/09/18 07:06 03/09/18 07:06 Period Temp Pulse Resp BP Sys/Andujar Pulse Ox Last 24 Hr 97.1 F-97.7 F 34-133 10-48 72-126/42-106 87-100 Intake and Output 03/08/18 03/09/18 03/09/18 21:59 05:59 13:59 Intake Total 50.1 / 50.1 Output Total 250 / 250 0 / 0 150 / 150 Balance -250 / -250 50.1 / 50.1 -150 / -150 Weight 499 lb Intake & Output: Intake & Output 03/08/18 03/09/18 03/09/18 21:59 05:59 13:59 Intake Total 50.1 / 50.1 Output Total 250 / 250 0 / 0 150 / 150 Balance -250 / -250 50.1 / 50.1 -150 / -150 Weight 499 lb Intake: IV 50.1 / 50.1 Oral 0 / 0 Output: Void Amount 250 / 250 0 / 0 150 / 150 Other: # Voids 1 Exam: General: Obese, lying supine in bed, no acute distress Chest: Clear to auscultation, respirations are unlabored. Cardiovascular: Irregular, distant, no murmur appreciated. Lower extremities with lymphedematous changes Abdomen: Obese, soft, mild tenderness in the left lower quadrant region with palpation, difficult to assess this is more superficial or deep. Abdomen is not rigid, there is no guarding, there is no rebound tenderness. Bowel sounds are present. Neuro: Alert, oriented 3, moves all extremities with some difficulty given body habitus. Medical - PN: Obj Da - Labs CBC & Chem 7: 03/09/18 04:00 03/09/18 04:00 Labs: Abnormal Lab Results 03/09/18 03/09/18 03/09/18 06:56 04:00 04:00 RBC Hgb Hct MCV MCH RDW Plt Count Lymph % (Auto) Lymph # (Auto) Seg Neutrophils % Lymphocytes % Nucleated RBCs Platelet Estimate RBC Morphology Anisocytosis Macrocytosis PT 41.8 H INR 4.3 H Chloride Carbon Dioxide BUN 39 H Creatinine 3.6 H Glucose 66 L Uric Acid 19.8 H Calcium 8.3 L Total Bilirubin 1.3 H Direct Bilirubin 0.7 H GGT 70 H Alkaline Phosphatase 131 H Lactate Dehydrogenase 264 H NT-Pro-B Natriuret Pep Albumin 3.0 L Globulin 4.6 H Albumin/Globulin Ratio 0.7 L Ur Leukocyte Esterase Urine RBC Urine WBC Urine Bacteria Hyaline Casts Digoxin 3.4 H* 03/09/18 03/08/18 03/08/18 04:00 17:07 17:07 RBC 3.11 L Hgb 10.6 L Hct 31.9 L MCV 102.8 H MCH 34.1 H RDW 16.1 H Plt Count 131 L Lymph % (Auto) 12.3 L Lymph # (Auto) 0.7 L Seg Neutrophils % Lymphocytes % Nucleated RBCs Platelet Estimate RBC Morphology Anisocytosis Macrocytosis PT 56.6 H INR 6.3 H* Chloride Carbon Dioxide BUN Creatinine Glucose Uric Acid Calcium Total Bilirubin Direct Bilirubin GGT Alkaline Phosphatase Lactate Dehydrogenase NT-Pro-B Natriuret Pep 8919.0 H Albumin Globulin Albumin/Globulin Ratio Ur Leukocyte Esterase Urine RBC Urine WBC Urine Bacteria Hyaline Casts Digoxin 03/08/18 03/08/18 03/08/18 17:07 17:07 17:01 RBC 3.21 L Hgb 11.1 L Hct 32.7 L MCV 101.9 H MCH 34.6 H RDW 16.4 H Plt Count 127 L Lymph % (Auto) Lymph # (Auto) Seg Neutrophils % 84 H Lymphocytes % 11 L Nucleated RBCs 2 H Platelet Estimate Decreased A RBC Morphology Abnorm A Anisocytosis 1+ A Macrocytosis 1+ A PT INR Chloride 93 L Carbon Dioxide 32 H BUN 39 H Creatinine 3.7 H Glucose Uric Acid Calcium 8.5 L Total Bilirubin 1.3 H Direct Bilirubin GGT Alkaline Phosphatase 132 H Lactate Dehydrogenase NT-Pro-B Natriuret Pep Albumin Globulin 4.4 H Albumin/Globulin Ratio 0.8 L Ur Leukocyte Esterase Urine RBC Urine WBC Urine Bacteria Hyaline Casts Digoxin 2.9 H* 03/08/18 14:50 RBC Hgb Hct MCV MCH RDW Plt Count Lymph % (Auto) Lymph # (Auto) Seg Neutrophils % Lymphocytes % Nucleated RBCs Platelet Estimate RBC Morphology Anisocytosis Macrocytosis PT INR Chloride Carbon Dioxide BUN Creatinine Glucose Uric Acid Calcium Total Bilirubin Direct Bilirubin GGT Alkaline Phosphatase Lactate Dehydrogenase NT-Pro-B Natriuret Pep Albumin Globulin Albumin/Globulin Ratio Ur Leukocyte Esterase 250 A Urine RBC 5 H Urine WBC 110 H Urine Bacteria Mod A Hyaline Casts 9 H Digoxin Meds: Medications Acetaminophen (Tylenol) 650 mg PO Q6HP PRN PRN Reason: PAIN/FEVER > 101 Hydrocodone Bitart/Acetaminophen ([place] 10/325mg) 2 tab PO Q6HP PRN PRN Reason: PAIN LEVEL 3-6 Dopamine HCl/Dextrose 400 mg/ (Premix) 250 mls @ 42.43 mls/hr IV .[id number] ANGELA; 5 MCG/KG/MIN PRN Reason: Protocol Last Admin: 03/09/18 10:19 Dose: 5 mcg/kg/min, 42.43 mls/hr Sodium Chloride (Sodium Chloride 0.9%) 250 mls @ 20 mls/hr IV .[id number] COUNTS INCLUDE 234 BEDS AT THE [facility] Ondansetron HCl (Zofran) 4 mg IV Q4HP PRN PRN Reason: Nausea And Vomiting Sodium Chloride (Saline Flush) 10 ml IV Q8 COUNTS INCLUDE 234 BEDS AT THE [facility] Medical - PN: A/P - Time Spent With Patient Time spent: 35 min critical care time is assessing patient and directing therapy for bradycardia and hypotension. (1) Acute renal failure Status: Acute Current Visit: Yes (2) Medication induced coagulopathy Status: Acute Current Visit: Yes (3) Morbid obesity Status: Chronic Current Visit: Yes (4) Atrial fibrillation Status: Chronic Current Visit: Yes (5) Hypertension, essential Status: Chronic Current Visit: Yes (6) Anasarca Status: Chronic Current Visit: Yes (7) Lymphedema Status: Chronic Current Visit: Yes - Narrative A/P Narrative: 57 year old male with CKD, history of congestive heart failure, chronic lymphedema and morbid obesity presents the ED after having been found in acute renal failure. Acute renal failure on CKD. Unclear etiology. Patient had had diarrhea off and on for a week and had noted decreased urine output. He had also skipped 2 days worth of diuretic. May be cardiorenal given his weight gain over past several weeks, last EF 47%. May also be prerenal with diarrhea. Now with bradycardia on home carvedialol, raises possibility of prerenal from decreased cardiac outputs (worsened by dig toxicity). Urine output has picked up with the implementation of dobutamine and improvement in heart rate and blood pressure this morning. Also has right heart failure and cor pulmonale. Postobstructive renal failure is thought less likely, bladder scans have shown no significant amount of urine, though given his body habitus they're difficult to interpret. Ultrasound Mon did not note distended bladder. There was no evidence of gross hydronephrosis either. He is non-oliguric. Plan: Change to PCU status, continue with dopamine for pressure and HR support. With adequate HR, will not use Digibind; continue with diuresis, follow creatinine, send urine to calculate a fractional excretion of sodium and urea. Hold lisinopril. Nephrology following. Congestive heart failure, chronic systolic from last echo. Suspected decompensation currently. Plan: As above. Atrial fibrillation. Having bradycardia in ED, then 70-90 on tele prior to evening carvedilol. On digoxin for rate control, digoxin level is elevated, likely on the basis of renal failure. Plan: Hold digoxin, telemetry monitoring, follow ventricular rate. Coagulopathy secondary to warfarin therapy. Patient has not taken warfarin since evening. However he said poor oral intake as well which may be affecting his INR. Received 1 mg IV vitamin K Kerrie [place], INR now 4.5. Plan: Follow INR in the morning. Morbid obesity. Complicating the patient's care. Will need bariatric bed, which has been ordered. If he requires imaging studies, he'll need to be transferred to the hospital with larger scanners. Plan: Bariatric bed. Essential hypertension. Plan: Continue home medications Intermittent diarrhea and lower abdominal pain. Exam is benign, no tenderness with fairly deep palpation left lower quadrant or right lower quadrant. Given normal white count, normal lactate, suspect this may be benign process, possible gastroenteritis. Plan: Follow white count, follow exam. Urinary tract infection. Urine culture positive for greater than 100,000 CFU/ mL of gram-negative bacillus. May explain his lower abdominal pain. Plan: Begin antibiotics, follow-up culture Elevated lipase on labs Wednesday. Low suspicion for acute pancreatitis without epigastric pain, nausea, vomiting. Likely represents decreased lipase clearance due to his acute renal failure. Medical - PN: Qual - VTE Deep Vein Thrombosis/Pulmonary Embolism Present on Admission: No
[2018-03-09] MEDS ORDERED: FUROSEMIDE 100 MG/10 ML VIAL IV ONE (13:15)
[2018-03-09] MEDS ORDERED: HYDROcodone/APAP 10/325MG TABLET PO PRN (13:53)
[2018-03-09] MEDS: HYDROcodone/APAP 10/325MG TABLET PO PRN ×2 (14:06→20:27)
[2018-03-09] MEDS: cefTRIAXone 2 GM VIAL IV SCH (14:22)
[2018-03-09] MEDS: FUROSEMIDE 100 MG/10 ML VIAL IV SCH (16:31)
--- NOTE | 2018-03-09 17:25 | Nephrology Progress Note ---
Subjective Patient information: Note initiated : 03/09/18 at 5:22 pm Service Date, if different from initiated Date: [] Patient: Branden Espinosa 57 y/o M admitted on 03/08/18 for States he is here to be admitted/Renal Failure. Chief Complaint: [] Principal diagnosis: PENNY Interval history: Patient was seen by me yesterday and sent to ED for hospitalisation for PENNY patient has progressive worsening of his renal function and he states his fluid status has been getting worse he was also diagnosed with elevated INR, elevated dig level overnight he became bradycardic and hypotensive he received 250cc bolus saline and then in am wa sstarted on dopamine gtt his BP has been stable since he has been making more urine he denies worsening SOB, CP Edema worse no other issues reported Pertinent ROS: as above Objective - Vital Signs Vital signs: Vital Signs Temp Pulse Pulse Resp BP BP Pulse Ox 03/09/18 07:06 97.5 F 68 16 118/67 96 03/09/18 07:05 98 H 97 03/09/18 06:51 113 H 118/67 97 03/09/18 06:41 48 L 108/86 95 03/09/18 06:37 133 H 126/74 97 03/09/18 06:31 48 L 120/106 97 03/09/18 06:22 44 L 93 03/09/18 06:21 44 L 107/66 96 03/09/18 06:11 69 118/62 95 03/09/18 06:06 39 L 117/74 95 03/09/18 06:01 48 L 94/61 96 03/09/18 05:56 101 H 88/59 96 03/09/18 05:52 36 L 93/48 87 L 03/09/18 05:35 49 L 78/42 92 03/09/18 05:32 50 L 88/45 91 03/09/18 05:01 42 L 86/53 94 03/09/18 04:31 56 L 81/66 96 03/09/18 04:02 50 L 94 03/09/18 04:01 97.7 F 45 L 82/51 93 03/09/18 03:31 51 L 90/56 95 03/09/18 03:01 44 L 97/57 97 03/09/18 02:31 110 H 87/52 100 03/09/18 02:21 95 03/09/18 02:01 56 L 93/56 95 03/09/18 01:31 43 L 99/62 91 03/09/18 01:12 97.1 F 43 L 16 99/62 91 03/09/18 01:01 48 L 94/61 91 03/09/18 00:31 58 L 104/66 93 03/09/18 00:14 68 102/62 96 03/08/18 23:29 40 L 93/65 03/08/18 21:05 86/46 03/08/18 20:49 97.6 F 68 16 98/83 93 03/08/18 20:46 41 L 16 92 03/08/18 20:31 60 23 H 86/46 91 03/08/18 20:01 48 L 17 91/44 93 03/08/18 19:46 35 L 27 H 94 03/08/18 19:32 34 L 14 91/60 93 03/08/18 19:01 37 L 19 89/59 93 03/08/18 18:47 39 L 19 91/56 93 03/08/18 18:31 49 L 14 76/57 94 03/08/18 18:16 41 L 17 115/66 95 03/08/18 18:01 34 L 22 72/50 94 03/08/18 17:46 34 L 10 L 87/47 92 03/08/18 17:31 59 L 48 H 88/45 89 L Intake and Output 03/09/18 03/09/18 03/09/18 05:59 13:59 21:59 Intake Total 50.1 / 50.1 200 / 200 Output Total 0 / 0 800 / 800 Balance 50.1 / 50.1 -600 / -600 Intake: IV 50.1 / 50.1 Oral 0 / 0 200 / 200 Output: Void Amount 0 / 0 800 / 800 Other: # Voids 1 Weight 499 lb Patient Weight 03/10/18 05:59 Weight 499 lb Intake & Output: Intake & Output 03/09/18 03/09/18 03/09/18 05:59 13:59 21:59 Intake Total 50.1 / 50.1 200 / 200 Output Total 0 / 0 800 / 800 Balance 50.1 / 50.1 -600 / -600 Weight 499 lb Intake: IV 50.1 / 50.1 Oral 0 / 0 200 / 200 Output: Void Amount 0 / 0 800 / 800 Other: # Voids 1 - General Appearance General appearance: appears started age, obese, chronically ill EENT: mucous membranes moist Neck: JVD Respiratory: clear Cardiology: no rub, edema, regular rate Gastrointestinal: no tenderness, no guarding Integumentary: warm and dry Neurologic: alert and oriented x3 Musculoskeletal: no erythema, no cyanosis Psychiatric: mood/affect appropriate - Lab 03/09/18 04:00 03/09/18 04:00 Most recent lab results Calcium 8.3 mg/dl (8.6-10.4) L 03/09/18 04:00 Phosphorus 4.4 mg/dL (2.7-4.5) 03/09/18 04:00 Magnesium 2.1 mg/dL (1.6-2.5) 03/09/18 04:00 Assessment and Plan (1) Acute renal failure Patient with progressive decline in renal function likely cardiorenal, hypotension contributing (fe urea less than 35%) responding to IV diuretics and pressors will continue with the same will follow renal function and optimize please dose meds to egfr avoid nephrotoxic meds elevated dig level given acute decline in egfr, been monitored and managed by hospitalist coagulopathy ? etiology, coumadin on hold will follow Status: Acute
[2018-03-09] MEDS: 0.9 % SODIUM CHLORIDE 250 ML IV SCH ×2 (22:27→22:50)
[2018-03-10] MEDS: DOPamine 400 MG in PREMIX 1 BAG IV SCH ×5 (04:28→22:25)
[2018-03-10] MEDS: 0.9 % SODIUM CHLORIDE 10 ML SYRINGE IV SCH ×3 (05:30→20:17)
[2018-03-10 06:22] LABS: Basophils # (Auto) 0 K/mcL (0.0-0.3); Basophils % (Auto) 0.2 % (0.0-2.0); Eosinophils # (Auto) 0.3 K/mcL (0.0-0.7); Eosinophils % (Auto) 4.3 % (0.0-7.0); Granulocytes % (Auto) 77.6 % (38.0-78.0); Lymphocytes # (Auto) 0.9 K/mcL (1.5-4.8); Lymphocytes % (Auto) 10.7 % (15.5-49.0); Mean Cell Volume 102.7 fL (80.0-100.0); Mean Corpuscular HGB Conc 32.5 g/dL (31.0-36.0); Mean Corpuscular Hemoglobin 33.3 pg (26.0-34.0); Monocytes # (Auto) 0.6 K/mcL (0.1-0.9); Monocytes % (Auto) 7.2 % (1.0-12.0); Platelet Count 163 K/mcL (140-440); RBC 3.44 M/mcL (4.50-5.90); Red Cell Distribution Width 16.7 % (11.5-14.5)
[2018-03-10 06:43] LABS: ALT/SGPT 10 U/l (0-40); Albumin 3.5 gm/dL (3.2-5.2); Albumin/Globulin Ratio 0.7 (1.0-2.3); Alkaline Phosphatase 144 U/L (39-117); Bilirubin,Direct 0.7 mg/dL (0.0-0.3); Blood Urea Nitrogen 40 mg/dl (6-20); Gamma Glutamyl Transpeptidase 78 U/L (8-61); Uric Acid 19.8 mg/dL (2.5-8.0)
[2018-03-10] MEDS ORDERED: GENTAMICIN SULFATE 40 MG, CLINDAMYCIN 300 MG, BACITRACIN 25,000 UNIT in SODIUM CHLORIDE... IRR SCH (09:00)
[2018-03-10] MEDS: FUROSEMIDE 100 MG/10 ML VIAL IV SCH ×2 (09:30→15:23)
[2018-03-10] MEDS ORDERED: SODIUM CHLORIDE 0.9% IV SCH (09:30)
[2018-03-10] MEDS ORDERED: DIGOXIN IMMUNE FAB IV SCH (09:30)
--- NOTE | 2018-03-10 09:53 | XRay Report ---
HISTORY: Reason for Exam:chf and renal failure FINDINGS: The heart is moderately enlarged but magnified by portable technique. There is no evidence of congestive heart failure. The lungs are incompletely expanded but appear clear. No pleural effusion is present. The questionable left lower lobe infiltrates seen on 12/03/17 is no longer present. The cardiomegaly remains stable.. IMPRESSION: Cardiomegaly, without congestive heart failure Interpreted and Authenticated by: Thad Levine 03/10/18
[2018-03-10] MEDS: HYDROcodone/APAP 10/325MG TABLET PO PRN ×2 (10:09→17:59)
[2018-03-10] MEDS: cefTRIAXone 2 GM VIAL IV SCH (10:09)
[2018-03-10 10:25] LABS: ABG Methemoglobin 0.3 % (0.4-1.5); VBG Base Excess 4.7 (-2.0-2.0); VBG HCO3 30.4 mmol/L (24.0-28.0); VBG Oxygen Saturation 91.4 % (40.0-70.0); VBG PCO2 50.6 mmHg (41.0-51.0); VBG PO2 98 mmHg (25-40)
[2018-03-10] MEDS: 0.9 % SODIUM CHLORIDE 250 ML IV SCH (11:30)
--- NOTE | 2018-03-10 13:34 | Internal Med Progress Note ---
Medical - PN: Subj Patient information: Note initiated : 03/10/18 at 1:32 pm Service Date, if different from initiated Date: [] Patient: Branden Espinosa 57 y/o M admitted on 03/08/18 for States he is here to be admitted/Renal Failure. Chief Complaint: [] Interval history: 03/08 The patient is a 57-year-old male with a history of morbid obesity, stage III chronic kidney disease, congestive heart failure, atrial fibrillation on warfarin who presents back to the emergency department from Dr. White office, where he has gone for follow-up after an ED visit yesterday. History is obtained in speaking to the patient, reviewing old records summarize, discussing the case with Dr. White. Patient reports that he's had diarrhea off and on all week long with some moderate abdominal pain. Both the abdominal pain and diarrhea of waxed and waned. Abdominal pains more in the lower abdomen. He's had no blood in his stool. He's noted no fevers or chills. He's had no nausea or vomiting associated with that. Patient presented the emergency department for evaluation yesterday. His body habitus is too large to fit into the CT scanner. Ultrasound revealed just limited information. He eventually decided to leave the hospital follow-up with primary care. Of note his lipase was elevated 183 however his creatinine was also 4.2, his last creatinine on February 23 was 1.8, prior to that in December was 1.3. He was aware of his elevated creatinine, but decided to follow up as an outpatient in any case. Today he presented to Dr. White's office for further follow-up. Had evidence of volume overload, edema/anasarca to the abdominal wall. He is put on significant amounts of weight, up to 499 pounds yesterday in the ED. He was directed back to the ED for further evaluation for likely admission at other this facility or in transfer if he were to require services we are unable to provide. Patient tells me today his dominant pain is actually low bit better, it's mild, more in the left lower. He had held his diuretic for 2 days, as he thought that it may be worsening his diarrhea. He had noted decreased urine output, and had tried to decrease his oral intake as well as we would not become volume overloaded. This morning however he he did take 520 mg torsemide tablets ( normally takes 320 mg tablets twice a day) and was urinating at home, produced urine in the office, also was able to urinate in the ED. Repeat creatinine in the office this morning is 4.0, in the ED this afternoon it was 3.7. Patient has no history of urinary retention (though bladder neck obstruction is noted in past history). Attempt was made to place Ruffin catheter in the ED today, however is difficult to expose the urethral meatus due to significant pannus, is unable to be placed. Limited ultrasound yesterday showed no gross hydronephrosis to suggest significant urinary retention. The patient has had progressive lower extremity edema, with anasarca up to his abdomen. He has noted some dyspnea over the last several days when he transfers from chair to to bed or other seating arrangement. He may have noticed a little worsening of the dyspnea when lying supine. He's had no chest pain or tightness. He does have a history of atrial fibrillation and occasionally feels palpitations. Patient is on warfarin for atrial fibrillation. His INR was elevated at 5.5 on Wednesday, was 4.9 yesterday, is now 6.3. He states he last took warfarin on evening, had been holding it secondary to his elevated INR. He's noted no bleeding or bruising, no hematuria, no blood in his stools. Denied fever, chills. Does complain of pain at the left TMP region for several days. No dental pain. After evaluation this afternoon, his white count remains normal, he does not have an elevated lactate, his creatinine is improving. It is anticipated that he will not need any surgical procedures or imaging and thus can be cared for at this facility. He is being admitted for further evaluation and treatment of acute renal failure and coagulopathy. 03/09 Patient had pulse in the 70s to 90s yesterday evening, received his evening Coreg. Subsequently had slow ventricular response, pulse in the 30s at times. Also had low blood pressures with a right forearm cough. Consistently low. 500 mL's of fluid given back. Remained hypotensive. This morning still hypotensive and bradycardic, peripheral dopamine started with good response and heart rate as well as blood pressure. Urine output picked up after starting dopamine. He received 80 mg of furosemide last evening without much effect. Creatinine down to 3.6 today. NR down to 4.5. Still has some left lower quadrant pain, no bowel movement for the last 3 days. Pain is unchanged. 03/10 Patient seen and examined, no acute complaints or concerns. He was bradycardic again last night with low blood pressure and dopamine was resumed. He continues to do well as far as diuresis is concerned with intravenous Lasix. He still appears clinically volume overloaded with significant generalized edema. The patient's creatinine is trending down at 3.1 today. His digoxin level is still elevated at 2.8. Did not get any beta-blockers. I reviewed the patient's chart it seems that this patient had similar problems last year when he was at [facility]. He was evaluated by a clock repairer at that point and digoxin was held because he was getting bradycardic and hypotensive during sleep. VBG done this morning does not show any evidence of CO2 retention. Given that the digoxin level is still high we will give the patient digoxin antibody. The patient for now and continue with aggressive diuresis. Resume Coumadin as INR is subtherapeutic. The patient will likely benefit from outpatient sleep study to see if his CPAP needs to be titrated Wound care to follow the patient. Pertinent ROS: Denies headache, dizziness Denies chest pain, palpitations Denies cough or shortness of breath Denies abdominal pain, nausea or vomiting. - Constitutional Vitals: Vital Signs Temp Pulse Resp BP Pulse Ox 98.1 F 63 22 127/87 96 03/10/18 12:01 03/10/18 12:47 03/10/18 12:01 03/10/18 12:41 03/10/18 12:47 Period Temp Pulse Resp BP Sys/Andujar Pulse Ox Last 24 Hr 96.9 F-98.8 F 25-143 20-22 72-137/34-101 84-100 Intake and Output 03/09/18 03/10/18 03/10/18 21:59 05:59 13:59 Intake Total 950 / 950 258 / 258 500 / 500 Output Total 600 / 600 1500 / 1500 925 / 925 Balance 350 / 350 -1242 / -1242 -425 / -425 Weight 503 lb Intake & Output: Intake & Output 03/09/18 03/10/18 03/10/18 21:59 05:59 13:59 Intake Total 950 / 950 258 / 258 500 / 500 Output Total 600 / 600 1500 / 1500 925 / 925 Balance 350 / 350 -1242 / -1242 -425 / -425 Weight 503 lb Intake: IV 250 / 250 258 / 258 250 / 250 Sodium Chloride 0.9% 250 ml @ 8 / 8 250 / 250 20 mls/hr IV .[id number] [facility]GEL[facility] Rx#: [id number] DOPamine 400 MG In Premix 1 Bag 250 / 250 250 / 250 @ 5 MCG/KG/MIN 42.43 mls/hr IV .[id number] ANGELA Rx#:[id number] Oral 700 / 700 250 / 250 Output: Void Amount 600 / 600 1500 / 1500 925 / 925 Other: Meal Dinner Lunch Percent of Meal Consumed 50% 100% Feeding Ability Assist with Tray Set Up Assist with Tray Set Up Exam: Constitutional; Afebrile, cooperative, alert, not in distress. It is morbidly obese Eyes- No icterus, , No periorbital swelling Ears- Ext ear normal, hearing normal to conversation. Neck- Midline trachea, supple Respiratory system: Air Entry equal on both sides, No crackles or wheezing, no rhonchi. During exam CVS- Rate normal rhythm irregularr, S1,S2 heard, no gallop, no rub. Abdomen- Soft nontender abdomen, no organomegaly, no tenderness, no guarding or rigidity, pannus PLASTIC PRESS OPERATOR- AOOx3, moving all extremities, no gross focal deficit noted. Lysed edema in the dependent regions Medical - PN: Obj Da - Labs CBC & Chem 7: 03/10/18 04:00 03/10/18 04:00 Labs: Abnormal Lab Results 03/10/18 03/10/18 03/10/18 09:30 04:00 04:00 RBC Hgb Hct MCV MCH RDW Plt Count Lymph % (Auto) Lymph # (Auto) Seg Neutrophils % Lymphocytes % Nucleated RBCs Platelet Estimate RBC Morphology Anisocytosis Macrocytosis PT INR ABG Methemoglobin 0.3 L VBG pO2 98 H VBG HCO3 30.4 H VBG Total CO2 32.0 H VBG O2 Saturation 91.4 H VBG Base Excess 4.7 H Carboxyhemoglobin 6.5 H Total Hemoglobin 11.5 L Chloride 95 L Carbon Dioxide 31 H BUN 40 H Creatinine 3.1 H Glucose Uric Acid 19.8 H Calcium 8.5 L Total Bilirubin 1.6 H Direct Bilirubin 0.7 H GGT 78 H Alkaline Phosphatase 144 H Lactate Dehydrogenase 279 H NT-Pro-B Natriuret Pep Albumin Globulin 4.8 H Albumin/Globulin Ratio 0.7 L Ur Leukocyte Esterase Urine RBC Urine WBC Urine Bacteria Hyaline Casts Digoxin 2.8 H* 03/10/18 03/10/18 03/09/18 04:00 04:00 06:56 RBC 3.44 L Hgb 11.5 L Hct 35.3 L MCV 102.7 H MCH RDW 16.7 H Plt Count Lymph % (Auto) 10.7 L Lymph # (Auto) 0.9 L Seg Neutrophils % Lymphocytes % Nucleated RBCs Platelet Estimate RBC Morphology Anisocytosis Macrocytosis PT 19.4 H INR 1.6 H ABG Methemoglobin VBG pO2 VBG HCO3 VBG Total CO2 VBG O2 Saturation VBG Base Excess Carboxyhemoglobin Total Hemoglobin Chloride Carbon Dioxide BUN Creatinine Glucose Uric Acid Calcium Total Bilirubin Direct Bilirubin GGT Alkaline Phosphatase Lactate Dehydrogenase NT-Pro-B Natriuret Pep Albumin Globulin Albumin/Globulin Ratio Ur Leukocyte Esterase Urine RBC Urine WBC Urine Bacteria Hyaline Casts Digoxin 3.4 H* 03/09/18 03/09/18 03/09/18 04:00 04:00 04:00 RBC 3.11 L Hgb 10.6 L Hct 31.9 L MCV 102.8 H MCH 34.1 H RDW 16.1 H Plt Count 131 L Lymph % (Auto) 12.3 L Lymph # (Auto) 0.7 L Seg Neutrophils % Lymphocytes % Nucleated RBCs Platelet Estimate RBC Morphology Anisocytosis Macrocytosis PT 41.8 H INR 4.3 H ABG Methemoglobin VBG pO2 VBG HCO3 VBG Total CO2 VBG O2 Saturation VBG Base Excess Carboxyhemoglobin Total Hemoglobin Chloride Carbon Dioxide BUN 39 H Creatinine 3.6 H Glucose 66 L Uric Acid 19.8 H Calcium 8.3 L Total Bilirubin 1.3 H Direct Bilirubin 0.7 H GGT 70 H Alkaline Phosphatase 131 H Lactate Dehydrogenase 264 H NT-Pro-B Natriuret Pep Albumin 3.0 L Globulin 4.6 H Albumin/Globulin Ratio 0.7 L Ur Leukocyte Esterase Urine RBC Urine WBC Urine Bacteria Hyaline Casts Digoxin 03/08/18 03/08/18 03/08/18 17:07 17:07 17:07 RBC Hgb Hct MCV MCH RDW Plt Count Lymph % (Auto) Lymph # (Auto) Seg Neutrophils % Lymphocytes % Nucleated RBCs Platelet Estimate RBC Morphology Anisocytosis Macrocytosis PT 56.6 H INR 6.3 H* ABG Methemoglobin VBG pO2 VBG HCO3 VBG Total CO2 VBG O2 Saturation VBG Base Excess Carboxyhemoglobin Total Hemoglobin Chloride 93 L Carbon Dioxide 32 H BUN 39 H Creatinine 3.7 H Glucose Uric Acid Calcium 8.5 L Total Bilirubin 1.3 H Direct Bilirubin GGT Alkaline Phosphatase 132 H Lactate Dehydrogenase NT-Pro-B Natriuret Pep 8919.0 H Albumin Globulin 4.4 H Albumin/Globulin Ratio 0.8 L Ur Leukocyte Esterase Urine RBC Urine WBC Urine Bacteria Hyaline Casts Digoxin 03/08/18 03/08/18 03/08/18 17:07 17:01 14:50 RBC 3.21 L Hgb 11.1 L Hct 32.7 L MCV 101.9 H MCH 34.6 H RDW 16.4 H Plt Count 127 L Lymph % (Auto) Lymph # (Auto) Seg Neutrophils % 84 H Lymphocytes % 11 L Nucleated RBCs 2 H Platelet Estimate Decreased A RBC Morphology Abnorm A Anisocytosis 1+ A Macrocytosis 1+ A PT INR ABG Methemoglobin VBG pO2 VBG HCO3 VBG Total CO2 VBG O2 Saturation VBG Base Excess Carboxyhemoglobin Total Hemoglobin Chloride Carbon Dioxide BUN Creatinine Glucose Uric Acid Calcium Total Bilirubin Direct Bilirubin GGT Alkaline Phosphatase Lactate Dehydrogenase NT-Pro-B Natriuret Pep Albumin Globulin Albumin/Globulin Ratio Ur Leukocyte Esterase 250 A Urine RBC 5 H Urine WBC 110 H Urine Bacteria Mod A Hyaline Casts 9 H Digoxin 2.9 H* Meds: Medications Acetaminophen (Tylenol) 650 mg PO Q6HP PRN PRN Reason: PAIN/FEVER > 101 Hydrocodone Bitart/Acetaminophen ([place] 10/325mg) 2 tab PO Q6HP PRN PRN Reason: PAIN LEVEL 3-6 Last Admin: 03/10/18 10:09 Dose: 2 tab Ceftriaxone Sodium (Rocephin) 2 gm IV Q24H [facility] Last Admin: 03/10/18 10:09 Dose: 2 gm Furosemide (Lasix) 80 mg IV BIDD [facility] Last Admin: 03/10/18 09:30 Dose: 80 mg Dopamine HCl/Dextrose 400 mg/ (Premix) 250 mls @ 42.43 mls/hr IV .[id number] ANGELA; 5 MCG/KG/MIN PRN Reason: Protocol Last Admin: 03/10/18 06:52 Dose: 4.5 mcg/kg/min, 38.19 mls/hr Sodium Chloride (Sodium Chloride 0.9%) 250 mls @ 20 mls/hr IV .[id number] [facility] Last Admin: 03/10/18 11:30 Dose: 20 mls/hr Gentamicin Sulfate 40 mg/Clindamycin Phosphate 300 mg/Bacitracin 25,000 unit/ Sodium Chloride 503 mls @ 0 mls/hr IRR UD ANGELA PRN Reason: As Directed Ondansetron HCl (Zofran) 4 mg IV Q4HP PRN PRN Reason: Nausea And Vomiting Sodium Chloride (Saline Flush) 10 ml IV Q8 [facility] Last Admin: 03/10/18 05:30 Dose: 10 ml Warfarin Sodium (Coumadin Per Pharmacy) 1 order PO DAILY@1400 ANGELA Warfarin Sodium (Coumadin) 5 mg PO TODAY@1400 [facility] Stop: 03/10/18 14:01 - ABG Interpretation ABG results: 03/10/18 09:30 ABG Methemoglobin 0.3 L VBG pH 7.40 VBG pCO2 50.6 VBG pO2 98 H VBG HCO3 30.4 H VBG Total CO2 32.0 H VBG O2 Saturation 91.4 H VBG Base Excess 4.7 H Medical - PN: A/P - Time Spent With Patient Total time spent is greater than 50% in coordination of care (as documented) at patient's floor/unit and/or counseling patient: - Narrative A/P Narrative: 57 year old male with CKD, history of congestive heart failure, chronic lymphedema and morbid obesity presents the ED after having been found in acute renal failure. Acute renal failure on CKD. Unclear etiology. due to diarrhea and poor oral intake? cardiorenal syndrome? due to dig effect (ATN due to hypotension and bradycardia) ? Plan: Continue on PCU status, continue with dopamine for pressure and HR support. With adequate HR, givne Digibind today as dig level still high, and pt is bracydardic and hypotensive at times; continue with diuresis, follow creatinine, continue to hold lisinopril, bp meds, appreciate nephrology help. Congestive heart failure, chronic systolic from last echo. Suspected decompensation currently. Plan: As above. Atrial fibrillation. Having bradycardia in ED, then 70-90 on tele prior to evening carvedilol. On digoxin for rate control, digoxin level is elevated, likely on the basis of renal failure. Plan: discontinue digoxin, digoxin antibody given, telemetry monitoring, follow ventricular rate. Coagulopathy secondary to warfarin therapy. Patient has not taken warfarin since evening. However he said poor oral intake as well which may be affecting his INR. Received 1 mg IV vitamin K Tues vivi, INR now 4.5. Plan: Follow INR in the morning, resume coumadin per pharmacy. Morbid obesity. Complicating the patient's care. Will need bariatric bed, which has been ordered. If he requires imaging studies, he'll need to be transferred to the hospital with larger scanners. Plan: Bariatric bed. Obstructive Sleep apnea: Plan: Continue with cpap at night, may benefit from outpatient sleep study. Essential hypertension. Plan: hold bp meds Intermittent diarrhea and lower abdominal pain. Exam is benign, no tenderness with fairly deep palpation left lower quadrant or right lower quadrant. Given normal white count, normal lactate, suspect this may be benign process, possible gastroenteritis. Plan: Follow white count, follow exam. stable now Urinary tract infection. Urine culture positive for greater than 100,000 CFU/ mL of gram-negative bacillus. May explain his lower abdominal pain. Plan: Begin antibiotics, IV rocephin started. monitor. Elevated lipase on labs Wednesday. Low suspicion for acute pancreatitis without epigastric pain, nausea, vomiting. Likely represents decreased lipase clearance due to his acute renal failure. DVT hep sq as inr was 1.6 today, d/c once inr is therapeutic Full code Diet Medical - PN: Qual - VTE Deep Vein Thrombosis/Pulmonary Embolism Present on Admission: No
[2018-03-10] MEDS: HEPARIN 5,000 UNIT/ML VIAL SQ SCH ×3 (13:47→20:15)
[2018-03-10] MEDS ORDERED: WARFARIN 5 MG TABLET PO SCH (14:00)
--- NOTE | 2018-03-10 16:38 | Nephrology Progress Note ---
Subjective Patient information: Note initiated : 03/10/18 at 4:35 pm Service Date, if different from initiated Date: [] Patient: Branden Espinosa 57 y/o M admitted on 03/08/18 for States he is here to be admitted/Renal Failure. Chief Complaint: [] Principal diagnosis: PENNY Interval history: patient had bradycardia and hypotension last night, dopamine resumed good response to diuretics with improving renal function denies SOB, CP thinks edema is improving no other events reported Pertinent ROS: as above Objective - Vital Signs Vital signs: Vital Signs Temp Pulse Pulse Resp BP Pulse Ox 03/10/18 15:19 103 H 98 03/10/18 15:02 131/65 03/10/18 14:41 116/71 03/10/18 14:21 96/64 03/10/18 14:01 77 122/67 96 03/10/18 13:41 40 L 103/70 97 03/10/18 13:22 71 117/63 97 03/10/18 13:02 85 125/72 97 03/10/18 12:47 63 96 03/10/18 12:41 33 L 127/87 96 03/10/18 12:28 47 L 131/78 97 03/10/18 12:22 54 L 72/56 97 03/10/18 12:01 98.1 F 87 22 127/73 98 03/10/18 11:42 25 L 129/78 97 03/10/18 11:21 32 L 118/82 98 03/10/18 11:01 40 L 133/85 99 03/10/18 10:41 80 127/82 99 03/10/18 10:21 117 H 119/90 100 03/10/18 10:01 102 H 119/76 89 L 03/10/18 09:41 94 H 121/81 87 L 03/10/18 09:21 124 H 131/82 84 L 03/10/18 09:01 114/91 03/10/18 08:41 109/61 03/10/18 08:21 116/59 03/10/18 08:01 119/62 03/10/18 08:00 87 96 03/10/18 07:41 110/61 03/10/18 07:21 111/57 03/10/18 07:01 126/71 03/10/18 06:41 100/60 05/03/18 06:22 106/59 05/03/18 06:01 126/90 [id number] 05:41 108/73 05/03/18 05:21 107/83 05/18 05:01 111/77 0518 04:41 109/71 05/18 04:21 87/74 05/18 04:01 98.0 F 20 113/74 98 05/18 03:41 98/76 0518 03:21 109/87 0518 03:01 115/83 0518 02:41 105/68 05/18 02:21 119/83 0518 02:01 129/75 05 01:41 112/72 05 01:21 124/81 18 01:02 125/72 18 00:41 119/86 05/18 00:21 104/73 05/18 00:01 98.8 F 20 113/84 96 05/0218 23:41 130/82 05/02/18 23:21 128/81 05/02/18 23:02 129/60 [id number] 22:40 101/55 05/0218 22:21 75/34 05/0218 22:02 72/41 05/0218 21:42 94/49 05/18 21:22 109/57 [id number] 21:02 42 L 95/59 98 05/02/18 20:42 73 111/56 96 05/02/18 20:21 100 H 98/64 99 05/02/18 20:01 97.0 F 94 H 20 99/77 96 05/02/18 19:41 32 L 92/62 98 05/02/18 19:32 76 93/57 97 05/02/18 19:21 113 H 93/57 96 05/02/18 19:01 74 92/58 98 05/02/18 18:42 92 H 97/58 99 05/02/18 18:21 38 L 119/60 97 05/02/18 18:02 98 H 104/69 98 05/02/18 17:50 96.9 F L 127 H 22 137/101 97 05/0218 17:42 93 H 96 03/09/18 17:41 101 H 137/101 98 03/09/18 17:21 84 129/75 94 03/09/18 17:05 130/83 Intake and Output 03/10/18 03/10/18 03/10/18 05:59 13:59 21:59 Intake Total 258 / 258 750 / 750 Output Total 1500 / 1500 925 / 925 Balance -1242 / -1242 -175 / -175 Intake: IV 258 / 258 500 / 500 Sodium Chloride 0.9% 250 ml @ 8 / 8 250 / 250 20 mls/hr IV .[id number] [facility] Rx#: [id number] DOPamine 400 MG In Premix 1 Bag 250 / 250 250 / 250 @ 5 MCG/KG/MIN 42.43 mls/hr IV .[id number] [facility] Rx#:[id number] Oral 250 / 250 Output: Void Amount 1500 / 1500 925 / 925 Other: Meal Lunch Percent of Meal Consumed 100% Feeding Ability Assist with Tray Set Up Intake & Output: Intake & Output 03/10/18 03/10/18 03/10/18 05:59 13:59 21:59 Intake Total 258 / 258 750 / 750 Output Total 1500 / 1500 925 / 925 Balance -1242 / -1242 -175 / -175 Intake: IV 258 / 258 500 / 500 Sodium Chloride 0.9% 250 ml @ 8 / 8 250 / 250 20 mls/hr IV .[id number] [facility] Rx#: [id number] DOPamine 400 MG In Premix 1 Bag 250 / 250 250 / 250 @ 5 MCG/KG/MIN 42.43 mls/hr IV .[id number] [facility] Rx#:[id number] Oral 250 / 250 Output: Void Amount 1500 / 1500 925 / 925 Other: Meal Lunch Percent of Meal Consumed 100% Feeding Ability Assist with Tray Set Up - General Appearance General appearance: appears started age, obese EENT: mucous membranes moist Respiratory: clear Cardiology: no rub, edema, irregular rhythm Gastrointestinal: no tenderness, no guarding Integumentary: warm and dry Neurologic: alert and oriented x3 Musculoskeletal: no cyanosis, no clubbing Psychiatric: mood/affect appropriate - Lab 03/10/18 04:00 03/10/18 04:00 Most recent lab results Calcium 8.5 mg/dl (8.6-10.4) L 03/10/18 04:00 Phosphorus 4.2 mg/dL (2.7-4.5) 03/10/18 04:00 Magnesium 2.0 mg/dL (1.6-2.5) 03/10/18 04:00 Assessment and Plan (1) Acute renal failure Patient with progressive decline in renal function, renal function improving slowly good response to dopamine and diuretics likely cardiorenal, hypotension contributing (fe urea less than 35%) responding to IV diuretics and pressors will continue with the same will follow renal function and optimize please dose meds to egfr avoid nephrotoxic meds elevated dig level given acute decline in egfr, digibind given today if continues to have bradycardia despite improving dig level will need cardiology opinion coagulopathy ? etiology, coumadin on hold will follow Status: Acute
[2018-03-11 04:56] LABS: Basophils # (Auto) 0 K/mcL (0.0-0.3); Basophils % (Auto) 0.3 % (0.0-2.0); Eosinophils # (Auto) 0.3 K/mcL (0.0-0.7); Eosinophils % (Auto) 4.3 % (0.0-7.0); Granulocytes % (Auto) 66.9 % (38.0-78.0); Lymphocytes # (Auto) 1.1 K/mcL (1.5-4.8); Lymphocytes % (Auto) 17.6 % (15.5-49.0); Mean Cell Volume 101.9 fL (80.0-100.0); Mean Corpuscular HGB Conc 33.1 g/dL (31.0-36.0); Mean Corpuscular Hemoglobin 33.7 pg (26.0-34.0); Monocytes # (Auto) 0.7 K/mcL (0.1-0.9); Monocytes % (Auto) 10.9 % (1.0-12.0); Platelet Count 166 K/mcL (140-440); RBC 3.38 M/mcL (4.50-5.90); Red Cell Distribution Width 16.9 % (11.5-14.5)
[2018-03-11 05:43] LABS: ALT/SGPT 10 U/l (0-40); Albumin 3.3 gm/dL (3.2-5.2); Albumin/Globulin Ratio 0.7 (1.0-2.3); Alkaline Phosphatase 134 U/L (39-117); Bilirubin,Direct 0.6 mg/dL (0.0-0.3); Blood Urea Nitrogen 38 mg/dl (6-20); Gamma Glutamyl Transpeptidase 73 U/L (8-61); Uric Acid 19.7 mg/dL (2.5-8.0)
[2018-03-11] MEDS: 0.9 % SODIUM CHLORIDE 10 ML SYRINGE IV SCH ×4 (05:54→22:00)
[2018-03-11] MEDS: 0.9 % SODIUM CHLORIDE 250 ML IV SCH ×2 (08:09→13:29)
[2018-03-11] MEDS: DOPamine 400 MG in PREMIX 1 BAG IV SCH ×3 (08:09→17:39)
[2018-03-11] MEDS: FUROSEMIDE 100 MG/10 ML VIAL IV SCH ×2 (08:10→16:29)
[2018-03-11] MEDS ORDERED: 0.9 % SODIUM CHLORIDE 10 ML SYRINGE IV PRN (08:27)
[2018-03-11] MEDS: HEPARIN 5,000 UNIT/ML VIAL SQ SCH ×2 (09:49→20:10)
[2018-03-11] MEDS: cefTRIAXone 2 GM VIAL IV SCH (09:49)
[2018-03-11] MEDS: HYDROcodone/APAP 10/325MG TABLET PO PRN ×2 (10:03→14:13)
[2018-03-11] MEDS ORDERED: DIGOXIN IMMUNE FAB IV ONE (11:16)
[2018-03-11] MEDS ORDERED: SODIUM CHLORIDE 0.9% IV ONE (11:16)
--- NOTE | 2018-03-11 11:32 | Internal Med Progress Note ---
Medical - PN: Subj Patient information: Note initiated : 03/11/18 at 11:25 am Service Date, if different from initiated Date: [] Patient: Branden Espinosa 57 y/o M admitted on 03/08/18 for States he is here to be admitted/Renal Failure. Chief Complaint: [] Interval history: 03/08 The patient is a 57-year-old male with a history of morbid obesity, stage III chronic kidney disease, congestive heart failure, atrial fibrillation on warfarin who presents back to the emergency department from Dr. White office, where he has gone for follow-up after an ED visit yesterday. History is obtained in speaking to the patient, reviewing old records summarize, discussing the case with Dr. White. Patient reports that he's had diarrhea off and on all week long with some moderate abdominal pain. Both the abdominal pain and diarrhea of waxed and waned. Abdominal pains more in the lower abdomen. He's had no blood in his stool. He's noted no fevers or chills. He's had no nausea or vomiting associated with that. Patient presented the emergency department for evaluation yesterday. His body habitus is too large to fit into the CT scanner. Ultrasound revealed just limited information. He eventually decided to leave the hospital follow-up with primary care. Of note his lipase was elevated 183 however his creatinine was also 4.2, his last creatinine on February 23 was 1.8, prior to that in December was 1.3. He was aware of his elevated creatinine, but decided to follow up as an outpatient in any case. Today he presented to Dr. White's office for further follow-up. Had evidence of volume overload, edema/anasarca to the abdominal wall. He is put on significant amounts of weight, up to 499 pounds yesterday in the ED. He was directed back to the ED for further evaluation for likely admission at other this facility or in transfer if he were to require services we are unable to provide. Patient tells me today his dominant pain is actually low bit better, it's mild, more in the left lower. He had held his diuretic for 2 days, as he thought that it may be worsening his diarrhea. He had noted decreased urine output, and had tried to decrease his oral intake as well as we would not become volume overloaded. This morning however he he did take 520 mg torsemide tablets ( normally takes 320 mg tablets twice a day) and was urinating at home, produced urine in the office, also was able to urinate in the ED. Repeat creatinine in the office this morning is 4.0, in the ED this afternoon it was 3.7. Patient has no history of urinary retention (though bladder neck obstruction is noted in past history). Attempt was made to place Ruffin catheter in the ED today, however is difficult to expose the urethral meatus due to significant pannus, is unable to be placed. Limited ultrasound yesterday showed no gross hydronephrosis to suggest significant urinary retention. The patient has had progressive lower extremity edema, with anasarca up to his abdomen. He has noted some dyspnea over the last several days when he transfers from chair to to bed or other seating arrangement. He may have noticed a little worsening of the dyspnea when lying supine. He's had no chest pain or tightness. He does have a history of atrial fibrillation and occasionally feels palpitations. Patient is on warfarin for atrial fibrillation. His INR was elevated at 5.5 on Wednesday, was 4.9 yesterday, is now 6.3. He states he last took warfarin on evening, had been holding it secondary to his elevated INR. He's noted no bleeding or bruising, no hematuria, no blood in his stools. Denied fever, chills. Does complain of pain at the left TMP region for several days. No dental pain. After evaluation this afternoon, his white count remains normal, he does not have an elevated lactate, his creatinine is improving. It is anticipated that he will not need any surgical procedures or imaging and thus can be cared for at this facility. He is being admitted for further evaluation and treatment of acute renal failure and coagulopathy. 03/09 Patient had pulse in the 70s to 90s yesterday evening, received his evening Coreg. Subsequently had slow ventricular response, pulse in the 30s at times. Also had low blood pressures with a right forearm cough. Consistently low. 500 mL's of fluid given back. Remained hypotensive. This morning still hypotensive and bradycardic, peripheral dopamine started with good response and heart rate as well as blood pressure. Urine output picked up after starting dopamine. He received 80 mg of furosemide last evening without much effect. Creatinine down to 3.6 today. NR down to 4.5. Still has some left lower quadrant pain, no bowel movement for the last 3 days. Pain is unchanged. 03/10 Patient seen and examined, no acute complaints or concerns. He was bradycardic again last night with low blood pressure and dopamine was resumed. He continues to do well as far as diuresis is concerned with intravenous Lasix. He still appears clinically volume overloaded with significant generalized edema. The patient's creatinine is trending down at 3.1 today. His digoxin level is still elevated at 2.8. Did not get any beta-blockers. I reviewed the patient's chart it seems that this patient had similar problems last year when he was at [facility]. He was evaluated by a flight engineer at that point and digoxin was held because he was getting bradycardic and hypotensive during sleep. VBG done this morning does not show any evidence of CO2 retention. Given that the digoxin level is still high we will give the patient digoxin antibody. The patient for now and continue with aggressive diuresis. Resume Coumadin as INR is subtherapeutic. The patient will likely benefit from outpatient sleep study to see if his CPAP needs to be titrated Wound care to follow the patient. 03/11 Pt seen examined, ovenright bp was stable but pt was again bradycardic, his dig level is 1.8 today Given that he has received digbind yesterday I am not sure if this value is accurate. On reviewing litrature, its noted that digibind can interefere with digoxin level monitoring. However the caveat is digoxin toxicity in patients with renal failure can recur as the medication is not cleared. AT this time given that pt was bradycaric, has renal failure, will repeat the dose of digibind today. Pt otherwise has no symptoms. tolerating po diet well his renal function continues to improve. Urine output did drop pt only neg 144 yesterday. Will review with nephrology if we can add sequential diuretic blockade in this patient. Plan to wean off pressors as tolerated get picc line today. Pertinent ROS: Denies headache, dizziness Denies chest pain, palpitations Denies cough or shortness of breath Denies abdominal pain, nausea or vomiting. - Constitutional Vitals: Vital Signs Temp Pulse Resp BP Pulse Ox 97.6 F 50 L 18 137/74 92 03/11/18 07:53 03/11/18 02:00 05/04/18 07:53 03/11/18 08:02 03/11/18 07:53 Period Temp Pulse Resp BP Sys/Andujar Pulse Ox Last 24 Hr 97.6 F-98.7 F 25-112 18-22 72-142/56-96 92-99 Intake and Output 03/10/18 03/11/18 03/11/18 21:59 05:59 13:59 Intake Total 818 / 818 288 / 288 564 / 564 Output Total 775 / 775 300 / 300 250 / 250 Balance 43 / 43 -12 12 314 / 314 Weight 499 lb Intake & Output: Intake & Output 03/10/18 03/11/18 03/11/18 21:59 05:59 13:59 Intake Total 818 / 818 288 / 288 564 / 564 Output Total 775 / 775 300 / 300 250 / 250 Balance 43 / 43 -12 / 12 314 / 314 Weight 499 lb Intake: IV 278 / 278 188 / 188 564 / 564 Sodium Chloride 0.9% 250 ml @ 135 / 135 51 / 51 44 / 44 20 mls/hr IV .[id number] ANGELA Rx#: [id number] DOPamine 400 MG In Premix 1 Bag 143 / 143 137 / 137 220 / 220 @ 5 MCG/KG/MIN 42.43 mls/hr IV .[id number] ANGELA Rx#:[id number] Oral 540 / 540 100 / 100 Output: Void Amount 775 / 775 300 / 300 250 / 250 Other: # Voids 1 Exam: Constitutional; Afebrile, cooperative, alert, not in distress, morbidly obese Eyes- No icterus, , No periorbital swelling Ears- Ext ear normal, hearing normal to conversation. Neck- Midline trachea, supple Respiratory system: Air Entry equal on both sides, No crackles or wheezing, no rhonchi. (ant exam only) CVS- Rate rhythm regular, S1,S2 heard, no gallop, no rub. Abdomen- Soft nontender abdomen, no organomegaly, no tenderness, no guarding or rigidity, large pannus [employer]- AOOx3, moving all extremities, no gross focal deficit noted. edema in dependend portions persistent. Medical - PN: Obj Da - Labs CBC & Chem 7: 03/11/18 03:40 03/11/18 03:40 Labs: Abnormal Lab Results 03/11/18 03/11/18 03/11/18 03:40 03:40 03:40 RBC 3.38 L Hgb 11.4 L Hct 34.5 L MCV 101.9 H MCH RDW 16.9 H Plt Count Lymph % (Auto) Lymph # (Auto) 1.1 L Seg Neutrophils % Lymphocytes % Nucleated RBCs Platelet Estimate RBC Morphology Anisocytosis Macrocytosis PT 17.2 H INR 1.4 H ABG Methemoglobin VBG pO2 VBG HCO3 VBG Total CO2 VBG O2 Saturation VBG Base Excess Carboxyhemoglobin Total Hemoglobin Chloride 95 L Carbon Dioxide 32 H BUN 38 H Creatinine 2.7 H Glucose Uric Acid 19.7 H Calcium Total Bilirubin 1.3 H Direct Bilirubin 0.6 H GGT 73 H Alkaline Phosphatase 134 H Lactate Dehydrogenase NT-Pro-B Natriuret Pep Albumin Globulin 4.8 H Albumin/Globulin Ratio 0.7 L Ur Leukocyte Esterase Urine RBC Urine WBC Urine Bacteria Hyaline Casts Digoxin 03/10/18 03/10/18 03/10/18 09:30 04:00 04:00 RBC Hgb Hct MCV MCH RDW Plt Count Lymph % (Auto) Lymph # (Auto) Seg Neutrophils % Lymphocytes % Nucleated RBCs Platelet Estimate RBC Morphology Anisocytosis Macrocytosis PT INR ABG Methemoglobin 0.3 L VBG pO2 98 H VBG HCO3 30.4 H VBG Total CO2 32.0 H VBG O2 Saturation 91.4 H VBG Base Excess 4.7 H Carboxyhemoglobin 6.5 H Total Hemoglobin 11.5 L Chloride 95 L Carbon Dioxide 31 H BUN 40 H Creatinine 3.1 H Glucose Uric Acid 19.8 H Calcium 8.5 L Total Bilirubin 1.6 H Direct Bilirubin 0.7 H GGT 78 H Alkaline Phosphatase 144 H Lactate Dehydrogenase 279 H NT-Pro-B Natriuret Pep Albumin Globulin 4.8 H Albumin/Globulin Ratio 0.7 L Ur Leukocyte Esterase Urine RBC Urine WBC Urine Bacteria Hyaline Casts Digoxin 2.8 H* 03/10/18 03/10/18 03/09/18 04:00 04:00 06:56 RBC 3.44 L Hgb 11.5 L Hct 35.3 L MCV 102.7 H MCH RDW 16.7 H Plt Count Lymph % (Auto) 10.7 L Lymph # (Auto) 0.9 L Seg Neutrophils % Lymphocytes % Nucleated RBCs Platelet Estimate RBC Morphology Anisocytosis Macrocytosis PT 19.4 H INR 1.6 H ABG Methemoglobin VBG pO2 VBG HCO3 VBG Total CO2 VBG O2 Saturation VBG Base Excess Carboxyhemoglobin Total Hemoglobin Chloride Carbon Dioxide BUN Creatinine Glucose Uric Acid Calcium Total Bilirubin Direct Bilirubin GGT Alkaline Phosphatase Lactate Dehydrogenase NT-Pro-B Natriuret Pep Albumin Globulin Albumin/Globulin Ratio Ur Leukocyte Esterase Urine RBC Urine WBC Urine Bacteria Hyaline Casts Digoxin 3.4 H* 03/09/18 03/09/18 03/09/18 04:00 04:00 04:00 RBC 3.11 L Hgb 10.6 L Hct 31.9 L MCV 102.8 H MCH 34.1 H RDW 16.1 H Plt Count 131 L Lymph % (Auto) 12.3 L Lymph # (Auto) 0.7 L Seg Neutrophils % Lymphocytes % Nucleated RBCs Platelet Estimate RBC Morphology Anisocytosis Macrocytosis PT 41.8 H INR 4.3 H ABG Methemoglobin VBG pO2 VBG HCO3 VBG Total CO2 VBG O2 Saturation VBG Base Excess Carboxyhemoglobin Total Hemoglobin Chloride Carbon Dioxide BUN 39 H Creatinine 3.6 H Glucose 66 L Uric Acid 19.8 H Calcium 8.3 L Total Bilirubin 1.3 H Direct Bilirubin 0.7 H GGT 70 H Alkaline Phosphatase 131 H Lactate Dehydrogenase 264 H NT-Pro-B Natriuret Pep Albumin 3.0 L Globulin 4.6 H Albumin/Globulin Ratio 0.7 L Ur Leukocyte Esterase Urine RBC Urine WBC Urine Bacteria Hyaline Casts Digoxin 03/08/18 03/08/18 03/08/18 17:07 17:07 17:07 RBC Hgb Hct MCV MCH RDW Plt Count Lymph % (Auto) Lymph # (Auto) Seg Neutrophils % Lymphocytes % Nucleated RBCs Platelet Estimate RBC Morphology Anisocytosis Macrocytosis PT 56.6 H INR 6.3 H* ABG Methemoglobin VBG pO2 VBG HCO3 VBG Total CO2 VBG O2 Saturation VBG Base Excess Carboxyhemoglobin Total Hemoglobin Chloride 93 L Carbon Dioxide 32 H BUN 39 H Creatinine 3.7 H Glucose Uric Acid Calcium 8.5 L Total Bilirubin 1.3 H Direct Bilirubin GGT Alkaline Phosphatase 132 H Lactate Dehydrogenase NT-Pro-B Natriuret Pep 8919.0 H Albumin Globulin 4.4 H Albumin/Globulin Ratio 0.8 L Ur Leukocyte Esterase Urine RBC Urine WBC Urine Bacteria Hyaline Casts Digoxin 03/08/18 03/08/18 03/08/18 17:07 17:01 14:50 RBC 3.21 L Hgb 11.1 L Hct 32.7 L MCV 101.9 H MCH 34.6 H RDW 16.4 H Plt Count 127 L Lymph % (Auto) Lymph # (Auto) Seg Neutrophils % 84 H Lymphocytes % 11 L Nucleated RBCs 2 H Platelet Estimate Decreased A RBC Morphology Abnorm A Anisocytosis 1+ A Macrocytosis 1+ A PT INR ABG Methemoglobin VBG pO2 VBG HCO3 VBG Total CO2 VBG O2 Saturation VBG Base Excess Carboxyhemoglobin Total Hemoglobin Chloride Carbon Dioxide BUN Creatinine Glucose Uric Acid Calcium Total Bilirubin Direct Bilirubin GGT Alkaline Phosphatase Lactate Dehydrogenase NT-Pro-B Natriuret Pep Albumin Globulin Albumin/Globulin Ratio Ur Leukocyte Esterase 250 A Urine RBC 5 H Urine WBC 110 H Urine Bacteria Mod A Hyaline Casts 9 H Digoxin 2.9 H* Meds: Medications Acetaminophen (Tylenol) 650 mg PO Q6HP PRN PRN Reason: PAIN/FEVER > 101 Hydrocodone Bitart/Acetaminophen ([place] 10/325mg) 2 tab PO Q6HP PRN PRN Reason: PAIN LEVEL 3-6 Last Admin: 03/11/18 10:03 Dose: 2 tab Ceftriaxone Sodium (Rocephin) 2 gm IV Q24H PENDING SALE TO [facility] Last Admin: 03/11/18 09:49 Dose: 2 gm Furosemide (Lasix) 80 mg IV BIDD PENDING SALE TO [facility] Last Admin: 03/11/18 08:10 Dose: 80 mg Heparin Sodium (Porcine) (Heparin) 5,000 unit SQ Q12 PENDING SALE TO [facility] Last Admin: 03/11/18 09:49 Dose: 5,000 unit Heparin Sodium (Porcine) (Heparin Flush) 2 ml IV Q12 PENDING SALE TO [facility] Last Admin: 03/11/18 09:31 Dose: Not Given Dopamine HCl/Dextrose 400 mg/ (Premix) 250 mls @ 42.43 mls/hr IV .[id number] PENDING SALE TO [facility]; 5 MCG/KG/MIN PRN Reason: Protocol Last Admin: 03/11/18 09:30 Dose: Not Given Sodium Chloride (Sodium Chloride 0.9%) 250 mls @ 20 mls/hr IV .[id number] PENDING SALE TO [facility] Last Admin: 03/11/18 08:09 Dose: 20 mls/hr Gentamicin Sulfate 40 mg/Clindamycin Phosphate 300 mg/Bacitracin 25,000 unit/ Sodium Chloride 503 mls @ 0 mls/hr IRR UD ANGELA PRN Reason: As Directed Digoxin Immune CHOLO 240 mg/ (Sodium Chloride) 50 mls @ 100 mls/hr IV ONCE ONE Stop: 03/11/18 11:45 Ondansetron HCl (Zofran) 4 mg IV Q4HP PRN PRN Reason: Nausea And Vomiting Sodium Chloride (Saline Flush) 10 ml IV Q8 PENDING SALE TO [facility] Last Admin: 03/11/18 05:54 Dose: 10 ml Sodium Chloride (Saline Flush) 10 ml IV UD PRN PRN Reason: FLUSH Sodium Chloride (Saline Flush) 10 ml IV Q12 PENDING SALE TO [facility] Last Admin: 03/11/18 09:59 Dose: 10 ml Warfarin Sodium (Coumadin Per Pharmacy) 1 order PO DAILY@1400 PENDING SALE TO [facility] Last Admin: 03/10/18 13:44 Dose: 1 order - ABG Interpretation ABG results: 03/10/18 09:30 ABG Methemoglobin 0.3 L VBG pH 7.40 VBG pCO2 50.6 VBG pO2 98 H VBG HCO3 30.4 H VBG Total CO2 32.0 H VBG O2 Saturation 91.4 H VBG Base Excess 4.7 H Medical - PN: A/P - Time Spent With Patient Total time spent is greater than 50% in coordination of care (as documented) at patient's floor/unit and/or counseling patient: - Narrative A/P Narrative: 57 year old male with CKD, history of congestive heart failure, chronic lymphedema and morbid obesity presents the ED after having been found in acute renal failure. Acute renal failure on CKD. Unclear etiology. due to diarrhea and poor oral intake? cardiorenal syndrome? due to dig effect (ATN due to hypotension and bradycardia) ? Plan: Continue to monitor PCU status, continue with dopamine for pressure and HR support. With adequate HR, given Digibind yesterday, repeat dose today as dig level still high, and pt is bracydardic avinash in light of renal failure, continue with diuresis, follow creatinine, continue to hold lisinopril, bp meds , appreciate nephrology help. Congestive heart failure, chronic systolic from last echo. Suspected decompensation currently. Plan: As above. consider adding cholorthiazide vs metolozone to help increase diuresis. Atrial fibrillation. Having bradycardia in ED, then 70-90 on tele prior to evening carvedilol. On digoxin for rate control, digoxin level is elevated, likely on the basis of renal failure. Plan: discontinue digoxin, digoxin antibody given, telemetry monitoring, follow heart rate. Coagulopathy secondary to warfarin therapy. Patient has not taken warfarin since evening. However he said poor oral intake as well which may be affecting his INR. Received 1 mg IV vitamin K Tues vivi, INR now 4.5. Plan: Follow INR in the morning, resume coumadin per pharmacy. Morbid obesity. Complicating the patient's care. Will need bariatric bed, which has been ordered. If he requires imaging studies, he'll need to be transferred to the hospital with larger scanners. Plan: Bariatric bed. Obstructive Sleep apnea: Plan: Continue with cpap at night, may benefit from outpatient sleep study. Essential hypertension. Plan: hold bp meds Intermittent diarrhea and lower abdominal pain. Exam is benign, no tenderness with fairly deep palpation left lower quadrant or right lower quadrant. Given normal white count, normal lactate, suspect this may be benign process, possible gastroenteritis. Plan: Follow white count, follow exam. stable now Urinary tract infection. Urine culture positive for greater than 100,000 CFU/ mL of gram-negative bacillus. May explain his lower abdominal pain. Plan: Begin antibiotics, IV rocephin started. monitor. Elevated lipase on labs Wednesday. Low suspicion for acute pancreatitis without epigastric pain, nausea, vomiting. Likely represents decreased lipase clearance due to his acute renal failure. DVT hep sq as inr was 1.4 today, d/c once inr is therapeutic Full code Diet Medical - PN: Qual - VTE Deep Vein Thrombosis/Pulmonary Embolism Present on Admission: No
[2018-03-11] MEDS ORDERED: WARFARIN 5 MG TABLET PO SCH (15:00)
[2018-03-11] MEDS ORDERED: CHLOROTHIAZIDE SODIUM 500 MG VIAL IV ONE (15:00)
--- NOTE | 2018-03-11 15:46 | XRay Report ---
HISTORY: Reason for Exam:PICC PLACEMENT FINDINGS: There is a PICC line with the tip in the axilla. This is in the region of the axillary vein. The nurse was unable to advance the catheter further. There is probably a stricture in the vein. There are diffuse infiltrates in both lungs. The heart is moderately enlarged. The pulmonary vessels may be engorged. The right lateral chest wall is outside of the field of view.. No pneumothorax or left-sided pleural effusion are present. IMPRESSION: PICC line in the region left axillary vein.. Widespread pulmonary infiltrates which could be pneumonia or congestive heart failure Interpreted and Authenticated by: Thad Levine 03/11/18
[2018-03-12] MEDS: 0.9 % SODIUM CHLORIDE 10 ML SYRINGE IV SCH ×6 (00:28→10:21)
[2018-03-12] MEDS: DOPamine 400 MG in PREMIX 1 BAG IV SCH (00:30)
[2018-03-12] MEDS: 0.9 % SODIUM CHLORIDE 250 ML IV SCH (00:30)
[2018-03-12 06:07] LABS: Basophils # (Auto) 0 K/mcL (0.0-0.3); Basophils % (Auto) 0.2 % (0.0-2.0); Eosinophils # (Auto) 0.2 K/mcL (0.0-0.7); Eosinophils % (Auto) 4.9 % (0.0-7.0); Granulocytes % (Auto) 67.8 % (38.0-78.0); Lymphocytes # (Auto) 0.9 K/mcL (1.5-4.8); Mean Cell Volume 101.5 fL (80.0-100.0); Mean Corpuscular HGB Conc 33.6 g/dL (31.0-36.0); Monocytes # (Auto) 0.5 K/mcL (0.1-0.9); Monocytes % (Auto) 10.1 % (1.0-12.0); Platelet Count 137 K/mcL (140-440); RBC 2.89 M/mcL (4.50-5.90); Red Cell Distribution Width 16.6 % (11.5-14.5)
[2018-03-12 07:10] LABS: ALT/SGPT 9 U/l (0-40); Albumin 2.9 gm/dL (3.2-5.2); Albumin/Globulin Ratio 0.7 (1.0-2.3); Alkaline Phosphatase 112 U/L (39-117); Bilirubin,Direct 0.5 mg/dL (0.0-0.3); Blood Urea Nitrogen 38 mg/dl (6-20); Gamma Glutamyl Transpeptidase 64 U/L (8-61); Uric Acid 19.6 mg/dL (2.5-8.0)
[2018-03-12] MEDS: FUROSEMIDE 100 MG/10 ML VIAL IV SCH (08:01)
[2018-03-12] MEDS ORDERED: ALLOPURINOL 100 MG TABLET PO SCH (09:00)
[2018-03-12] MEDS ORDERED: MAGNESIUM HYDROXIDE 30 ML ORAL.SUSP PO PRN (09:03)
[2018-03-12] MEDS: HYDROcodone/APAP 10/325MG TABLET PO PRN ×2 (09:12→13:06)
[2018-03-12] MEDS: HEPARIN 5,000 UNIT/ML VIAL SQ SCH (09:16)
[2018-03-12] MEDS: cefTRIAXone 2 GM VIAL IV SCH (09:25)
[2018-03-12] MEDS ORDERED: MAGNESIUM SULFATE 2 GM/50 ML BAG IV ONE (09:57)
[2018-03-12] MEDS ORDERED: POTASSIUM CHLORIDE 20 MEQ PACKET PO ONE (09:57)
[2018-03-12 10:36] LABS: ABG Methemoglobin 0.3 % (0.4-1.5); VBG Base Excess 5.3 (-2.0-2.0); VBG HCO3 31.1 mmol/L (24.0-28.0); VBG Oxygen Saturation 94.4 % (40.0-70.0); VBG PCO2 52.7 mmHg (41.0-51.0); VBG PH 7.39 U (7.32-7.42); VBG PO2 158 mmHg (25-40); VBG Total CO2 32.7 mmol/L (25.0-29.0)
[2018-03-12 11:17] LABS: Blood Urea Nitrogen 39 mg/dl (6-20)
--- NOTE | 2018-03-12 12:25 | Transfer Summary ---
Transfer Discharge Sum: Prov Patient information: Note initiated : 03/12/18 at 12:21 pm Service Date, if different from initiated Date: [] Patient: Branden Espinosa 57 y/o M admitted on 03/08/18 for States he is here to be admitted/Renal Failure. Chief Complaint: [] Date of admission: 03/08/18 20:49 Discharge Date: 03/12/18 Primary care physician: Nikolas Whitfield Admitting clinician: Lady De León Consults: 03/08/18 21:12 Consult to Physician [CONS] Routine Comment: Consulting Provider: Tatiana White Reason For Exam: Physician to Consult 03/10/18 13:34 Consult to Physician [CONS] Routine Comment: Consulting Provider: Mary Kay Mcdaniels Reason For Exam: Physician to Consult Discharging clinician: Arturo Alvarenga Receiving physician/facility: Dr Hurt [facility]. Transfer Discharge Sum: Med - Medications Active and Home Medications: Home Medications Low Air Loss Mattress #1 each 12/07/16 [Rx Confirmed 02/01/18] carvedilol 12.5 mg tablet 12.5 mg PO BID #180 tab 09/06/17 [Rx Confirmed ] ferrous sulfate 300 mg (60 mg iron)/5 mL oral liquid 300 mg PO ONCE ml [History Confirmed 03/09/18] digoxin 125 mcg tablet 125 mcg PO QDAY #90 tab 12/30/17 [Rx Confirmed 03/09/18] lisinopril 2.5 mg tablet 2.5 mg PO QDAY #90 tab 02/01/18 [Rx Confirmed 03/09/18] torsemide 20 mg tablet 60 mg PO BID #360 tab 02/01/18 [Rx Confirmed 03/09/18] honey 80 % topical gel 1 applic TOPICAL QDAY #44 ml 02/08/18 [Rx Confirmed 03/09] hydrocodone 10 mg-acetaminophen 325 mg tablet 2 tab PO Q6H PRN #170 tab [Rx Confirmed 03/09/18] warfarin 5 mg tablet See Label Instructions PO .COMPLEX #100 tab 03/04/18 [Rx Confirmed 03/08/18] Bariatric Hospital Bed 1 unit QDAY 03/09/18 [History Confirmed 03/09/18] CPAP Supplies QDAY 03/09/18 [History] Active Medications Acetaminophen (Tylenol) 650 mg PO Q6HP PRN PRN Reason: PAIN/FEVER > 101 Hydrocodone Bitart/Acetaminophen ([place] 10/325mg) 2 tab PO Q6HP PRN PRN Reason: PAIN LEVEL 3-6 Last Admin: 03/12/18 09:12 Dose: 2 tab Allopurinol (Zyloprim) 100 mg PO DAILY [facility] Last Admin: 03/12/18 09:14 Dose: 100 mg Ceftriaxone Sodium (Rocephin) 2 gm IV Q24H [facility] Last Admin: 03/12/18 09:25 Dose: 2 gm Furosemide (Lasix) 80 mg IV BIDD [facility] Last Admin: 03/12/18 08:01 Dose: 80 mg Heparin Sodium (Porcine) (Heparin) 5,000 unit SQ Q12 [facility] Last Admin: 03/12/18 09:16 Dose: 5,000 unit Heparin Sodium (Porcine) (Heparin Flush) 2 ml IV Q12 [facility] Last Admin: 03/12/18 09:15 Dose: 2 ml Sodium Chloride (Sodium Chloride 0.9%) 250 mls @ 20 mls/hr IV .[id number] [facility] Last Admin: 03/12/18 00:30 Dose: Not Given Gentamicin Sulfate 40 mg/Clindamycin Phosphate 300 mg/Bacitracin 25,000 unit/ Sodium Chloride 503 mls @ 0 mls/hr IRR UD [facility] PRN Reason: As Directed Last Admin: 03/11/18 21:00 Dose: 10 mls/hr Magnesium Hydroxide (Milk Of Magnesia) 30 ml PO DAILYP PRN PRN Reason: Constipation Ondansetron HCl (Zofran) 4 mg IV Q4HP PRN PRN Reason: Nausea And Vomiting Sodium Chloride (Saline Flush) 10 ml IV Q8 [facility] Last Admin: 03/12/18 10:21 Dose: 10 ml Sodium Chloride (Saline Flush) 10 ml IV UD PRN PRN Reason: FLUSH Last Admin: 03/12/18 09:29 Dose: 10 ml Sodium Chloride (Saline Flush) 10 ml IV Q12 [facility] Last Admin: 03/12/18 09:30 Dose: 10 ml Warfarin Sodium (Coumadin Per Pharmacy) 1 order PO DAILY@1400 [facility] Last Admin: 03/11/18 16:27 Dose: Not Given Transfer Discharge Sum: Hosp Hospital course: 03/08 The patient is a 57-year-old male with a history of morbid obesity, stage III chronic kidney disease, congestive heart failure, atrial fibrillation on warfarin who presents back to the emergency department from Dr. White office, where he has gone for follow-up after an ED visit yesterday. History is obtained in speaking to the patient, reviewing old records summarize, discussing the case with Dr. White. Patient reports that he's had diarrhea off and on all week long with some moderate abdominal pain. Both the abdominal pain and diarrhea of waxed and waned. Abdominal pains more in the lower abdomen. He's had no blood in his stool. He's noted no fevers or chills. He's had no nausea or vomiting associated with that. Patient presented the emergency department for evaluation yesterday. His body habitus is too large to fit into the CT scanner. Ultrasound revealed just limited information. He eventually decided to leave the hospital follow-up with primary care. Of note his lipase was elevated 183 however his creatinine was also 4.2, his last creatinine on February 23 was 1.8, prior to that in December was 1.3. He was aware of his elevated creatinine, but decided to follow up as an outpatient in any case. Today he presented to Dr. White's office for further follow-up. Had evidence of volume overload, edema/anasarca to the abdominal wall. He is put on significant amounts of weight, up to 499 pounds yesterday in the ED. He was directed back to the ED for further evaluation for likely admission at other this facility or in transfer if he were to require services we are unable to provide. Patient tells me today his dominant pain is actually low bit better, it's mild, more in the left lower. He had held his diuretic for 2 days, as he thought that it may be worsening his diarrhea. He had noted decreased urine output, and had tried to decrease his oral intake as well as we would not become volume overloaded. This morning however he he did take 520 mg torsemide tablets ( normally takes 320 mg tablets twice a day) and was urinating at home, produced urine in the office, also was able to urinate in the ED. Repeat creatinine in the office this morning is 4.0, in the ED this afternoon it was 3.7. Patient has no history of urinary retention (though bladder neck obstruction is noted in past history). Attempt was made to place Ruffin catheter in the ED today, however is difficult to expose the urethral meatus due to significant pannus, is unable to be placed. Limited ultrasound yesterday showed no gross hydronephrosis to suggest significant urinary retention. The patient has had progressive lower extremity edema, with anasarca up to his abdomen. He has noted some dyspnea over the last several days when he transfers from chair to to bed or other seating arrangement. He may have noticed a little worsening of the dyspnea when lying supine. He's had no chest pain or tightness. He does have a history of atrial fibrillation and occasionally feels palpitations. Patient is on warfarin for atrial fibrillation. His INR was elevated at 5.5 on Wednesday, was 4.9 yesterday, is now 6.3. He states he last took warfarin on evening, had been holding it secondary to his elevated INR. He's noted no bleeding or bruising, no hematuria, no blood in his stools. Denied fever, chills. Does complain of pain at the left TMP region for several days. No dental pain. After evaluation this afternoon, his white count remains normal, he does not have an elevated lactate, his creatinine is improving. It is anticipated that he will not need any surgical procedures or imaging and thus can be cared for at this facility. He is being admitted for further evaluation and treatment of acute renal failure and coagulopathy. 03/09 Patient had pulse in the 70s to 90s yesterday evening, received his evening Coreg. Subsequently had slow ventricular response, pulse in the 30s at times. Also had low blood pressures with a right forearm cough. Consistently low. 500 mL's of fluid given back. Remained hypotensive. This morning still hypotensive and bradycardic, peripheral dopamine started with good response and heart rate as well as blood pressure. Urine output picked up after starting dopamine. He received 80 mg of furosemide last evening without much effect. Creatinine down to 3.6 today. NR down to 4.5. Still has some left lower quadrant pain, no bowel movement for the last 3 days. Pain is unchanged. 03/10 Patient seen and examined, no acute complaints or concerns. He was bradycardic again last night with low blood pressure and dopamine was resumed. He continues to do well as far as diuresis is concerned with intravenous Lasix. He still appears clinically volume overloaded with significant generalized edema. The patient's creatinine is trending down at 3.1 today. His digoxin level is still elevated at 2.8. Did not get any beta-blockers. I reviewed the patient's chart it seems that this patient had similar problems last year when he was at [facility]. He was evaluated by a product management analyst at that point and digoxin was held because he was getting bradycardic and hypotensive during sleep. VBG done this morning does not show any evidence of CO2 retention. Given that the digoxin level is still high we will give the patient digoxin antibody. The patient for now and continue with aggressive diuresis. Resume Coumadin as INR is subtherapeutic. The patient will likely benefit from outpatient sleep study to see if his CPAP needs to be titrated Wound care to follow the patient. 03/11 Pt seen examined, ovenright bp was stable but pt was again bradycardic, his dig level is 1.8 today Given that he has received digbind yesterday I am not sure if this value is accurate. On reviewing litrature, its noted that digibind can interefere with digoxin level monitoring. However the caveat is digoxin toxicity in patients with renal failure can recur as the medication is not cleared. AT this time given that pt was bradycaric, has renal failure, will repeat the dose of digibind today. Pt otherwise has no symptoms. tolerating po diet well his renal function continues to improve. Urine output did drop pt only neg 144 yesterday. Will review with nephrology if we can add sequential diuretic blockade in this patient. Plan to wean off pressors as tolerated get picc line today. 03/12 Pt seen examined, no acute overnight issues, off dopamine since yesterday around 5 pm. Pt had no bradycardic episodes or hypotension overnight this AM while watching tv, he had an episode of presyncope. On the telemetry strip it was noted that the patient had severe bradycardia, lasting for a few seconds. The longest pause was 4 4.24 seconds. He also had a few other pauses between 2.5-3 seconds. The patient recovered quickly. He had no chest pain or any other symptoms during this time. The baseline heart rate has been between 70- 100 and has a few runs of A. fib with RVR on the color television console monitor. Given that patient is not on any negative chronotropic agent, has received 12 vials of Digibind for supratherapeutic levels of digoxin which according to literature should be more than adequate nullify the effects of digoxin. And the fact that he has intermittent A. fib with RVR and now a cardiac pause it seems that the patient has tachybradycardia syndrome and would benefit from a cardiac pacemaker. It is also possible that the episodes of bradycardia that the patient has been experiencing might be contributing to hypotensive spells and associated with that acute kidney injury. The patient's case was reviewed with Dr. Hurt at [facility] where accepted the patient for transfer and further evaluation and possible pacemaker. A/P 57 year old male with CKD, history of congestive heart failure, chronic lymphedema and morbid obesity presents the ED after having been found in acute renal failure. Afib with RVR/ Asystole- Possible Tachybrady syndrome. Has not received beta blockers except the first day of hospitilzation. He had supratherapeutic dig level on presentation. Received digbind total of 12 vials, which should have reversed the effect of digoxin. Pt will benefit from pacemaker avinash in light of h /o afib with rvr and bradycardia with use of neg chronotropic agents. Will be transferred to [facility] center for same. Acute renal failure on CKD. Unclear etiology. due to diarrhea and poor oral intake? cardiorenal syndrome (treated as such) ? due to dig effect (ATN due to hypotension and bradycardia) ? Pt has responded well to dopamine and iv diuresis. Creat at discharge is 2.3, pt renal function continues to improve. Congestive heart failure, chronic systolic from last echo. Suspected decompensation currently. Plan: As above. consider adding cholorthiazide vs metolozone to help increase diuresis. Echo done on 11/2017 shows left ventricle moderately dilated, left ventricular function is mildly reduced, mild LVH, RV severely dilated, moderate biatrial enlargement, mild MR, severe pulmonary hypertension, lack of IVC variation with respiration. Coagulopathy secondary to warfarin therapy. Patient has not taken warfarin since evening. However he said poor oral intake as well which may be affecting his INR. Received 1 mg IV vitamin K Kerrie trinidad, . Plan: Follow INR in the morning, resume coumadin per pharmacy. INr still sub therapeutic Morbid obesity. Complicating the patient's care. Will need bariatric bed, which has been ordered. If he requires imaging studies, he'll need to be transferred to the hospital with larger scanners. Plan: Bariatric bed. Chr wounds, on lower extermity, buttock, wound care, not infected Obstructive Sleep apnea: Plan: Continue with cpap at night, may benefit from outpatient sleep study. Essential hypertension. Plan: hold bp meds Intermittent diarrhea and lower abdominal pain. Exam is benign, no tenderness with fairly deep palpation left lower quadrant or right lower quadrant. Given normal white count, normal lactate, suspect this may be benign process, possible gastroenteritis. Plan: Follow white count, follow exam. resolvd. Urinary tract infection. Urine culture positive for greater than 100,000 CFU/ mL of gram-negative bacillus. May explain his lower abdominal pain. Plan: Begin antibiotics, IV rocephin started. monitor. d5 of ABX today Elevated lipase on labs Wednesday. Low suspicion for acute pancreatitis without epigastric pain, nausea, vomiting. Likely represents decreased lipase clearance due to his acute renal failure. DVT hep sq as inr was sub therapeutic. Full code - Time Spent with Patient Total time spent providing and/or coordinating transfer services: Greater than 30 minutes Transfer Discharge Sum: Exam - Constitutional Vitals: Vital Signs Temp Pulse Pulse Resp BP BP Pulse Ox 03/12/18 12:07 97 F 63 16 102/66 98 03/12/18 11:14 97 F 16 102/66 98 03/12/18 11:08 68 102/66 99 03/12/18 10:00 20 103/72 96 03/12/18 09:00 130/87 95 03/12/18 08:15 96 03/12/18 08:01 98/56 03/12/18 07:53 97.9 F 16 113/62 96 03/12/18 07:52 63 113/62 96 03/12/18 07:01 98 F 98/56 03/12/18 06:01 102/60 03/12/18 05:01 97/57 03/12/18 04:01 97.5 F 20 95/56 03/12/18 03:01 95/60 03/12/18 02:01 97/71 03/12/18 01:35 75 97 03/12/18 01:01 89/55 03/12/18 00:01 98.6 F 20 101/63 03/11/18 23:01 94/59 03/11/18 22:01 93/62 03/11/18 21:01 110/62 03/11/18 20:00 98.2 F 20 92/62 03/11/18 19:02 94/56 03/11/18 18:46 69 99 03/11/18 18:00 117/107 03/11/18 17:01 132/87 03/11/18 16:59 131/82 03/11/18 16:54 124/88 03/11/18 16:00 97.2 F 16 124/88 98 Intake and Output 03/11/18 03/12/18 03/12/18 21:59 05:59 13:59 Intake Total 732 / 732 480 / 480 Output Total 400 / 400 200 / 200 600 / 600 Balance 332 / 332 280 / 280 -600 / -600 Intake: IV 532 / 532 Sodium Chloride 0.9% 250 ml @ 244 / 244 20 mls/hr IV .[id number] [facility] Rx#: [id number] DOPamine 400 MG In Premix 1 Bag 238 / 238 @ 5 MCG/KG/MIN 42.43 mls/hr IV .[id number] ANGELA Rx#:[id number] Oral 200 / 200 480 / 480 Output: Void Amount 400 / 400 200 / 200 600 / 600 Other: Meal Dinner Breakfast Percent of Meal Consumed 25% 50% Feeding Ability Assist with Tray Set Up Stool Size Large Stool Color Brown Yellow Stool Consistency Soft # Voids 1 1 # Bowel Movements 0 1 # of times incontinent of 0 Bowels Weight 491 lb Additional comments: Constitutional; Afebrile, cooperative, alert, not in distress. morbidly obese Eyes- No icterus, , No periorbital swelling Ears- Ext ear normal, hearing normal to conversation. Neck- Midline trachea, supple Respiratory system: Air Entry equal on both sides, No crackles or wheezing, no rhonchi. ant exam CVS- Rate rhythm irrregular, S1,S2 heard, no gallop, no rub. Abdomen- Soft nontender abdomen, no organomegaly, no tenderness, no guarding or rigidity, very large pannus GEOTECHNICIAN- AOOx3, moving all extremities, no gross focal deficit noted. Transfer Discharge Sum: Data Procedures and tests throughout hospitalization: Pending Orders 03/08/18 18:48 Resuscitation Status Routine 03/08/18 18:50 Renal Diet 03/08/18 21:12 Admit as Inpatient Routine conveyor monitor CONT Condition Routine Elevate head of bed .ROUTINE IV Insertion/Management QSHIFT Intake and Output Q12H Notify Provider .routine Occult blood, stool, guaic poc .ALL STOOLS Specialty Bed .Routine Up to chair PRN Vital Signs 0000,0400,0800,1200,1600,2000 Consult to Physician [CONS] Routine RD to Adjust Diet/Supplements as Needed Routine CPAP .ROUTINE Incentive Spirometry Assess/Tx Q2HWA Pulse Oximetry .ROUTINE 03/09/18 09:27 0.9 % Sodium Chloride [Sodium Chloride 0.9%] 250 ml IV 20 mls/hr Acetaminophen [Tylenol] 650 mg PO Q6HP PRN HYDROcodone/APAP 10/325MG [[place] 10/325Mg] 2 tab PO Q6HP PRN Ondansetron [Zofran] 4 mg IV Q4HP PRN 03/09/18 14:00 0.9 % Sodium Chloride [Saline Flush] 10 ml IV Q8 cefTRIAXone [Rocephin] 2 gm IV Q24H 03/09/18 16:00 Furosemide [Lasix] 80 mg IV BIDD 03/10/18 09:00 Gentamicin Sulfate 40 mg Clindamycin [Cleocin] 300 mg Bacitracin 25,000 unit Sodium Chloride Irrig Solution [Sodium Chloride] 500 ml IRR UD Heparin 5,000 unit SQ Q12 03/10/18 09:35 Mist Therapy DAILY 03/10/18 09:37 Wound Care/Dressings TID 03/10/18 09:43 TAPS (Turn And Position System .Routine 03/10/18 09:44 Turn and Reposition [Patient Positioning] Q2H 03/10/18 11:44 Occupational Therapy Eval & Tx DAILY Physical Therapy Eval & Tx DAILY 03/10/18 13:34 Consult to Physician [CONS] Routine 03/10/18 14:00 Warfarin Per Pharmacy [Coumadin Per Pharmacy] 1 order PO DAILY@1400 03/11/18 08:27 Consent for Procedure NOW 0.9 % Sodium Chloride [Saline Flush] 10 ml IV UD PRN 03/11/18 09:00 0.9 % Sodium Chloride [Saline Flush] 10 ml IV Q12 Heparin Flush 2 ml IV Q12 03/12/18 09:00 Allopurinol [Zyloprim] 100 mg PO DAILY 03/12/18 09:03 Magnesium Hydroxide [Milk of Magnesia] 30 ml PO DAILYP PRN 03/12/18 16:00 Troponin T Urgent 03/13/18 04:00 Complete Blood Count DAILY Inpatient Panel DAILY Prothrombin Time INR DAILY 03/17/18 08:27 PICC Dressing Change Q7D Transfer Discharge Sum: A/P - Plan Disposition: Xfer [facility] [place] Quality Measure Queries - VTE Deep Vein Thrombosis/Pulmonary Embolism Present on Admission: No
[2018-03-12] MEDS ORDERED: WARFARIN 5 MG TABLET PO SCH (14:00)
== END 2018-03-12 13:45 | disposition short-term general hospital (02) | DRG 291 ==
LOC: ED 14:27 → ICU 20:49
PROVIDERS: ADMIT Internal Medicine; ATTEND Internal Medicine

== ENCOUNTER 2018-04-20 11:43 | Inpatient (IN) ==
--- NOTE | 2018-04-20 12:11 | XRay Report ---
HISTORY: Reason for Exam:weakness FINDINGS: There is mild to moderate consolidation posteriorly and medially in the left lung base. This has improved since 04/18/18. The heart is mildly enlarged but smaller today. Right lung is clear. No pulmonary vascular congestion is present. Pacemaker remains well-positioned. IMPRESSION: Improving left lower lobe infiltrate which may be pneumonia or atelectasis. Improving cardiomegaly and without evidence of congestive heart failure Interpreted and Authenticated by: Thad Levine 04/20/18
[2018-04-20 12:29] LABS: Basophils # (Auto) 0 K/mcL (0.0-0.3); Basophils % (Auto) 0.2 % (0.0-2.0); Eosinophils # (Auto) 0.2 K/mcL (0.0-0.7); Granulocytes % (Auto) 69.7 % (38.0-78.0); Lymphocytes # (Auto) 0.9 K/mcL (1.5-4.8); Lymphocytes % (Auto) 16.2 % (15.5-49.0); Mean Cell Volume 102.3 fL (80.0-100.0); Mean Corpuscular Hemoglobin 33.8 pg (26.0-34.0); Monocytes # (Auto) 0.5 K/mcL (0.1-0.9); Monocytes % (Auto) 9.9 % (1.0-12.0); Platelet Count 136 K/mcL (140-440); RBC 2.93 M/mcL (4.50-5.90); Red Cell Distribution Width 16.6 % (11.5-14.5)
[2018-04-20 12:49] LABS: Albumin 3.1 gm/dL (3.2-5.2); Blood Urea Nitrogen 55 mg/dl (6-20)
[2018-04-20] MEDS ORDERED: FUROSEMIDE 40 MG/4 ML VIAL IV ONE (13:39)
--- NOTE | 2018-04-20 14:12 | Emergency Department Note ---
Recheck HPI - General Chief Complaint: Recheck/Abnormal Lab/Rx Stated Complaint: worsening renal failure Source: patient Mode of arrival: EMS Limitations: no limitations - History of Present Illness HPI Narrative: Patient presents from home by ambulance, significant assistance required. Unable to care for self, increasing lower extremity edema now tense. Not able ambulate. Short of breath with exertion but not at rest. No fevers or chills. Worsening overall symptoms and seemed to the ER 2 days ago. - Related Data Home Medications Medication Instructions Recorded Confirmed ferrous sulfate 300 mg (60 mg 300 mg PO ONCE ml 12/29/17 04/20/18 iron)/5 mL oral liquid [facility] Hospital Bed 1 unit QDAY 03/09/18 04/20/18 CPAP Supplies 1 order INTRANASAL HS 03/09/18 04/20/18 Low Air Loss Mattress 1 each .ROUTE DAILY 04/20/18 04/20/18 Previous Rx's Medication Instructions Recorded carvedilol 12.5 mg tablet 12.5 mg PO BID #180 tab 09/06/17 digoxin 125 mcg tablet 125 mcg PO QDAY #90 tab 12/30/17 lisinopril 2.5 mg tablet 2.5 mg PO QDAY #90 tab 02/01/18 torsemide 20 mg tablet 60 mg PO BID #360 tab 02/01/18 honey 80 % topical gel 1 applic TOPICAL QDAY #44 ml 02/08/18 furosemide 40 mg tablet 40 mg PO TID #90 tab 03/24/18 potassium chloride ER 10 mEq 20 meq PO QDAY #60 tab 03/24/18 tablet,extended release hydrocodone 10 mg-acetaminophen 2 tab PO Q6H PRN #170 tab 03/25/18 325 mg tablet metolazone 2.5 mg tablet 2.5 mg PO .QOD #30 tab 04/12/18 Cefuroxime [Ceftin] 500 mg PO Q12 #20 tab 04/18/18 warfarin 5 mg tablet See Label Instructions PO .COMPLEX 04/19/18 #100 tab Allergies Allergy/AdvReac Type Severity Reaction Status Date / Time No Known Drug Allergies Allergy Verified 03/08/18 14:31 Review of Systems All systems ED: reviewed and negative except as stated. Past Medical History - Past Medical History Attestation: Yes: The following information was validated with the patient. Medical history: Reports: atrial fibrillation, hypertension, renal disease Surgical history ED: Reports: cholecystectomy, tonsillectomy - Social History smoking status: Former smoker Alcohol use: Reports: Rarely Drug use: Reports: none Physical Exam Limitations: no limitations General appearance: in no apparent distress, obese Head: atraumatic, normocephalic Eye: Present: normal appearance ENT: normal exam, mucous membranes moist Neck: Present: normal inspection. Absent: lymphadenopathy, thyromegaly Chest: Present: normal inspection Respiratory: Present: normal lung sounds bilaterally, other (crackles at bases) . Absent: respiratory distress Cardiovascular: Present: regular rate, normal rhythm. Absent: systolic murmur Abdominal: Present: soft, other (obese, limited exam) Extremities: Present: other (4+ edema, non-weeping) Neurological: Present: alert, oriented X3. Absent: motor sensory deficit Skin: Present: warm, dry Course Vital Signs Temperature 96.9 F L 04/20/18 11:44 Pulse Rate 114 H 04/20/18 11:44 Respiratory Rate 14 04/20/18 11:44 Blood Pressure 93/63 04/20/18 11:44 Pulse Oximetry (%) 91 04/20/18 11:44 Temperature 97.5 F 04/21/18 04:00 Pulse Rate 103 H 04/21/18 04:00 Respiratory Rate 16 04/21/18 04:00 Blood Pressure 108/65 04/21/18 04:00 Pulse Oximetry (%) 95 04/21/18 04:00 Recheck/Abnormal Lab/Rx - Lab Data Lab results reviewed: Yes I reviewed the patient's lab results. Result diagrams: 04/21/18 04:00 04/21/18 04:00 Lab Results 04/20/18 04/20/18 04/20/18 Range/Units 12:00 12:00 12:00 WBC 5.4 (4.5-11.0) K/mcL RBC 2.93 L (4.50-5.90) M/mcL Hgb 9.9 L (13.5-16.5) g/dL Hct 30.0 L (41.0-55.0) % MCV 102.3 H (80.0-100.0) fL MCH 33.8 (26.0-34.0) pg MCHC 33.0 (31.0-36.0) g/dL RDW 16.6 H (11.5-14.5) % Plt Count 136 L (140-440) K/mcL MPV 9.0 (7.4-10.4) fL Gran % 69.7 (38.0-78.0) % Lymph % (Auto) 16.2 (15.5-49.0) % Becker % (Auto) 9.9 (1.0-12.0) % Eos % (Auto) 4.0 (0.0-7.0) % Baso % (Auto) 0.2 (0.0-2.0) % Gran # 3.8 (1.8-8.0) K/mcL Lymph # (Auto) 0.9 L (1.5-4.8) K/mcL Becker # (Auto) 0.5 (0.1-0.9) K/mcL Eos # (Auto) 0.2 (0.0-0.7) K/mcL Baso # (Auto) 0 (0.0-0.3) K/mcL PT 21.4 H (11.9-14.5) sec INR 1.8 H (0.9-1.1) VBG Lactic Acid (0.5-2.2) mmol/L Sodium 136 (133-145) mmol/L Potassium 4.3 (3.3-5.1) mmol/L Chloride 93 L (96-108) mmol/L Carbon Dioxide 32 H (22-30) mmol/L Anion Gap 11.0 (8-16) BUN 55 H (6-20) mg/dl Creatinine 2.7 H (0.7-1.2) mg/dl GFR Calculation 25 Glucose 99 (70-105) mg/dL Calcium 8.7 (8.6-10.4) mg/dl Phosphorus 3.8 (2.7-4.5) mg/dL NT-Pro-B Natriuret Pep 83176.0 H (0-125) pg/ml Albumin 3.1 L (3.2-5.2) gm/dL Urine Color Urine Appearance Urine pH (5.0-9.0) Ur Specific [place] (1.000-1.035) Urine Protein (NEG) mg/dL Urine Glucose (UA) (NEG) mg/dL Urine Ketones (NEG) mg/dL Urine Occult Blood (<0.03) mg/dL Urine Nitrate (NEG) Urine Bilirubin (NEG) mg/dL Urine Urobilinogen (NEG) mg/dL Ur Leukocyte Esterase (NEG) /uL Urine RBC (0-1) /hpf Urine WBC (0-4) /hpf Ur Squamous Epith Cells (0-4) /hpf Urine Bacteria (0) /hpf Hyaline Casts (0-2) /lpf Urine Mucus (0) /hpf Ur Culture Indicated? Ur Random Creatinine mg/dl U Random Total Protein mg/dl U [place] Prot/Creat Ratio mg:mg Ur Random Sodium mmol/L Urine Urea Nitrogen mg/dL Digoxin ng/mL Digoxin Dose Digox Last Dose Time 04/20/18 04/20/18 04/20/18 Range/Units 12:01 12:15 13:30 WBC (4.5-11.0) K/mcL RBC (4.50-5.90) M/mcL Hgb (13.5-16.5) g/dL Hct (41.0-55.0) % MCV (80.0-100.0) fL MCH (26.0-34.0) pg MCHC (31.0-36.0) g/dL RDW (11.5-14.5) % Plt Count (140-440) K/mcL MPV (7.4-10.4) fL Gran % (38.0-78.0) % Lymph % (Auto) (15.5-49.0) % Becker % (Auto) (1.0-12.0) % Eos % (Auto) (0.0-7.0) % Baso % (Auto) (0.0-2.0) % Gran # (1.8-8.0) K/mcL Lymph # (Auto) (1.5-4.8) K/mcL Becker # (Auto) (0.1-0.9) K/mcL Eos # (Auto) (0.0-0.7) K/mcL Baso # (Auto) (0.0-0.3) K/mcL PT (11.9-14.5) sec INR (0.9-1.1) VBG Lactic Acid 1.3 (0.5-2.2) mmol/L Sodium (133-145) mmol/L Potassium (3.3-5.1) mmol/L Chloride (96-108) mmol/L Carbon Dioxide (22-30) mmol/L Anion Gap (8-16) BUN (6-20) mg/dl Creatinine (0.7-1.2) mg/dl GFR Calculation Glucose (70-105) mg/dL Calcium (8.6-10.4) mg/dl Phosphorus (2.7-4.5) mg/dL NT-Pro-B Natriuret Pep (0-125) pg/ml Albumin (3.2-5.2) gm/dL Urine Color Yellow Urine Appearance Clear Urine pH 5.0 (5.0-9.0) Ur Specific [place] 1.013 (1.000-1.035) Urine Protein Neg (NEG) mg/dL Urine Glucose (UA) Negative (NEG) mg/dL Urine Ketones Neg (NEG) mg/dL Urine Occult Blood Neg (<0.03) mg/dL Urine Nitrate Neg (NEG) Urine Bilirubin Neg (NEG) mg/dL Urine Urobilinogen Neg (NEG) mg/dL Ur Leukocyte Esterase 25 A (NEG) /uL Urine RBC 1 (0-1) /hpf Urine WBC 4 (0-4) /hpf Ur Squamous Epith Cells < 1 (0-4) /hpf Urine Bacteria 0 (0) /hpf Hyaline Casts 8 H (0-2) /lpf Urine Mucus Few (0) /hpf Ur Culture Indicated? No Ur Random Creatinine mg/dl U Random Total Protein mg/dl U [place] Prot/Creat Ratio mg:mg Ur Random Sodium mmol/L Urine Urea Nitrogen mg/dL Digoxin < 0.3 ng/mL Digoxin Dose Not Reportable Digox Last Dose Time Not Reportable 04/20/18 04/20/18 04/20/18 Range/Units 13:30 13:30 13:30 WBC (4.5-11.0) K/mcL RBC (4.50-5.90) M/mcL Hgb (13.5-16.5) g/dL Hct (41.0-55.0) % MCV (80.0-100.0) fL MCH (26.0-34.0) pg MCHC (31.0-36.0) g/dL RDW (11.5-14.5) % Plt Count (140-440) K/mcL MPV (7.4-10.4) fL Gran % (38.0-78.0) % Lymph % (Auto) (15.5-49.0) % Becker % (Auto) (1.0-12.0) % Eos % (Auto) (0.0-7.0) % Baso % (Auto) (0.0-2.0) % Gran # (1.8-8.0) K/mcL Lymph # (Auto) (1.5-4.8) K/mcL Becker # (Auto) (0.1-0.9) K/mcL Eos # (Auto) (0.0-0.7) K/mcL Baso # (Auto) (0.0-0.3) K/mcL PT (11.9-14.5) sec INR (0.9-1.1) VBG Lactic Acid (0.5-2.2) mmol/L Sodium (133-145) mmol/L Potassium (3.3-5.1) mmol/L Chloride (96-108) mmol/L Carbon Dioxide (22-30) mmol/L Anion Gap (8-16) BUN (6-20) mg/dl Creatinine (0.7-1.2) mg/dl GFR Calculation Glucose (70-105) mg/dL Calcium (8.6-10.4) mg/dl Phosphorus (2.7-4.5) mg/dL NT-Pro-B Natriuret Pep (0-125) pg/ml Albumin (3.2-5.2) gm/dL Urine Color Urine Appearance Urine pH (5.0-9.0) Ur Specific [place] (1.000-1.035) Urine Protein (NEG) mg/dL Urine Glucose (UA) (NEG) mg/dL Urine Ketones (NEG) mg/dL Urine Occult Blood (<0.03) mg/dL Urine Nitrate (NEG) Urine Bilirubin (NEG) mg/dL Urine Urobilinogen (NEG) mg/dL Ur Leukocyte Esterase (NEG) /uL Urine RBC (0-1) /hpf Urine WBC (0-4) /hpf Ur Squamous Epith Cells (0-4) /hpf Urine Bacteria (0) /hpf Hyaline Casts (0-2) /lpf Urine Mucus (0) /hpf Ur Culture Indicated? Ur Random Creatinine 69.6 mg/dl U Random Total Protein 17 mg/dl U [place] Prot/Creat Ratio 0.24 H mg:mg Ur Random Sodium 49 mmol/L Urine Urea Nitrogen 311 mg/dL Digoxin ng/mL Digoxin Dose Digox Last Dose Time Disposition Pt seen by [facility] only: No Clinical Impression: Volume overload, Bilateral lower extremity edema, Acute on chronic kidney failure Summary: Patient becoming prerenal, no longer tolerating aggressive home diuresis. Additionally, hypoalbuminemic state. Obesity with advanced sequela. Admission with nephrology consultation by Hospital Disposition: Xfer As Inpt ([facility]) Condition: Fair
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
[2018-04-20] MEDS ORDERED: oxyCODONE/APAP 5/325MG TABLET PO PRN (15:02)
[2018-04-20] MEDS ORDERED: ACETAMINOPHEN 325 MG TABLET PO PRN (15:02)
[2018-04-20] MEDS ORDERED: NALOXONE HCL 0.4 MG/ML VIAL IV PRN (15:02)
[2018-04-20] MEDS ORDERED: DIGOXIN 500 MCG/2 ML AMPUL IV ONE (15:02)
[2018-04-20 15:27] LABS: Appearance,Urine CLEAR; Bacteria,Urine 0 /hpf (0); Bilirubin,Urine NEG (NEG); Color,Urine YELLOW; Glucose,Urine (UA) NEGATIVE (NEG); Leukocyte Esterase,Urine 25 /uL (NEG); Mucus,Urine FEW /hpf (0); Protein,Urine NEG (NEG); Specific Gravity,Urine 1.013 (1.000-1.035); Urine Blood NEG mg/dL (<0.03); Urine Hyaline Cast 8 /lpf (0-2); Urine RBC 1 /hpf (0-1); Urine Squamous Epithelial Cell < 1 /hpf (0-4); Urine WBC 4 /hpf (0-4); Urobilinogen,Urine NEG (NEG)
[2018-04-20 15:48] LABS: Urea Nitrogen, Urine 311 mg/dL
[2018-04-20] MEDS ORDERED: WARFARIN 5 MG TABLET PO ONE (16:00)
[2018-04-20] MEDS: FUROSEMIDE 100 MG/10 ML VIAL IV SCH (16:13)
[2018-04-20] MEDS: LEVOFLOXACIN 500 MG TABLET PO SCH (16:22)
[2018-04-20] MEDS: HYDROcodone/APAP 10/325MG TABLET PO PRN (20:09)
[2018-04-20] MEDS ORDERED: HEPARIN 5,000 UNIT/ML VIAL SQ SCH (21:00)
[2018-04-20] MEDS: 0.9 % SODIUM CHLORIDE 10 ML SYRINGE IV SCH ×2 (21:01→22:17)
[2018-04-21] MEDS: 0.9 % SODIUM CHLORIDE 10 ML SYRINGE IV SCH ×6 (05:18→20:37)
[2018-04-21 05:19] LABS: Basophils # (Auto) 0 K/mcL (0.0-0.3); Basophils % (Auto) 0.3 % (0.0-2.0); Eosinophils # (Auto) 0.2 K/mcL (0.0-0.7); Granulocytes % (Auto) 68.8 % (38.0-78.0); Lymphocytes # (Auto) 0.7 K/mcL (1.5-4.8); Lymphocytes % (Auto) 15.2 % (15.5-49.0); Mean Cell Volume 102.6 fL (80.0-100.0); Mean Corpuscular HGB Conc 33.4 g/dL (31.0-36.0); Mean Corpuscular Hemoglobin 34.3 pg (26.0-34.0); Monocytes # (Auto) 0.5 K/mcL (0.1-0.9); Monocytes % (Auto) 10.7 % (1.0-12.0); Platelet Count 126 K/mcL (140-440); RBC 2.75 M/mcL (4.50-5.90)
[2018-04-21 05:48] LABS: ALT/SGPT 6 U/l (0-40); Albumin 3.1 gm/dL (3.2-5.2); Albumin/Globulin Ratio 0.7 (1.0-2.3); Alkaline Phosphatase 106 U/L (39-117); Bilirubin,Direct 0.5 mg/dL (0.0-0.3); Blood Urea Nitrogen 54 mg/dl (6-20); Gamma Glutamyl Transpeptidase 35 U/L (8-61); Uric Acid 16.5 mg/dL (2.5-8.0)
[2018-04-21] MEDS ORDERED: DIGOXIN 500 MCG/2 ML AMPUL IV ONE (07:33)
[2018-04-21] MEDS ORDERED: METOPROLOL TARTRATE 5 MG/5 ML VIAL IV PRN (07:33)
--- NOTE | 2018-04-21 07:47 | XRay Report ---
HISTORY: Reason for Exam:PICC PLACEMENT FINDINGS: A PICC line has been inserted through the left arm. The tip is in the superior vena cava. No pneumothorax or pleural effusion are present. There is a stable small to intermediate size consolidating infiltrate posteriorly medially in the left lower lobe. The heart is mildly enlarged. There has been no change since 11:56 AM on same date except for placement of the PICC line. IMPRESSION: No complication following insertion of a PICC line Stable left lower lobe infiltrate and stable cardiomegaly. The ICU was called with the results Interpreted and Authenticated by: Thad Levine 04/21/18
[2018-04-21] MEDS: 0.9 % SODIUM CHLORIDE 10 ML SYRINGE IV PRN ×2 (08:00→17:15)
[2018-04-21] MEDS: POTASSIUM CHLORIDE 20 MEQ TABLET PO SCH (09:17)
[2018-04-21] MEDS: FUROSEMIDE 100 MG/10 ML VIAL IV SCH ×2 (09:17→17:15)
[2018-04-21] MEDS: POLYETHYLENE GLYCOL 3350 17 GM PACKET PO PRN (09:22)
[2018-04-21] MEDS: HYDROcodone/APAP 10/325MG TABLET PO PRN ×2 (09:28→14:48)
[2018-04-21] MEDS ORDERED: PNEUMOCOCCAL 23-VAL P-SAC VAC 0.5 ML VIAL IM ONE (10:00)
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
[2018-04-21] MEDS: FLUCONAZOLE 100 MG TABLET PO SCH (12:43)
--- NOTE | 2018-04-21 13:53 | Internal Med Progress Note ---
Medical - PN: Subj Patient information: Note initiated : 04/21/18 at 1:50 pm Service Date, if different from initiated Date: [] Patient: Branden Espinosa 57 y/o M admitted on 04/20/18 for Worsening Renal Failure. Chief Complaint: [] Interval history: Mr. Espinosa is a 57 year old Male with history of morbid obesity, bedbound, severe pulmonary hypertension, congestive heart failure, chronic kidney disease atrial fibrillation. The patient presents to the hospital for worsening shortness of breath and increased edema in his body. The patient was discharged from this facility I believe on 20 March. He was transferred to [facility] for placement of a pacemaker. His admission in March was also for increased swelling, worsening renal function and was treated as congestive heart failure. At that point in time the patient was supratherapeutic and his INR as well as supratherapeutic and his digoxin level. Digoxin was held. The patient eventually was transferred to a higher center for placement of a pacemaker because of significant cardiac pauses. He underwent the pacemaker placement and was discharged from the facility. According to the patient since his discharge from the tertiary facility the patient has been having increased swelling in his lower extremities. This has been progressively getting worse, this has been accompanied by shortness of breath. He denies any other acute complaints or concerns. He denies taking in too much fluid he is watching his salt intake and is not taking any NSAIDs. The patient denies any chest pain denies any dizziness he does have intermittent changes in vision. The patient was being followed by nephrology in the outpatient, his dose of diuretics were being changed however despite this the patient's edema kept getting worse and therefore the patient was asked to come to the emergency room for evaluation. In the ER the patient was noted to have worsening renal failure, elevated bnp, significant edema, cxr was clear, showed resolving pna, ekg showed poor voltate , afib, 04/21 Patient seen and examined, overnight was not able to sleep well, there was some malfunction in the bariatric bed which kept beeping. Patient tired this morning. He has extensive erythema on his back possible fungal rash. Patient has not had a bowel movement for the last few days wanting a stool softener. He notes his shortness of breath is somewhat better but still not able to lie flat, denies any chest pain nausea vomiting. Appreciate nephrology input. Patient remains on IV Lasix, negative balance since yesterday,-[id number] Pertinent ROS: Denies headache, dizziness Denies chest pain, palpitations Denies cough or shortness of breath Denies abdominal pain, nausea or vomiting. - Constitutional Vitals: Vital Signs Temp Pulse Resp BP Pulse Ox 98.1 F 114 H 20 123/72 97 04/21/18 12:00 04/21/18 12:00 04/21/18 12:00 04/21/18 12:00 04/21/18 12:00 Period Temp Pulse Resp BP Sys/Andujar Pulse Ox Last 24 Hr 97.1 F-98.9 F 85-121 12-22 97-123/57-74 94-98 Intake and Output 04/20/18 04/21/18 04/21/18 21:59 05:59 13:59 Intake Total 300 / 300 640 / 640 Output Total 600 / 600 1250 / 1250 877 / 877 Balance -300 / -300 -1250 / -1250 -237 / -237 Weight 472 lb Intake & Output: Intake & Output 04/20/18 04/21/18 04/21/18 21:59 05:59 13:59 Intake Total 300 / 300 640 / 640 Output Total 600 / 600 1250 / 1250 877 / 877 Balance -300 / -300 -1250 / -1250 -237 / -237 Weight 472 lb Intake: Oral 300 / 300 220 / 220 GI Tube Flush 420 / 420 Output: Void Amount 600 / 600 1250 / 1250 875 / 875 # of times incontinent of urine 2 / 2 Other: Meal Breakfast Percent of Meal Consumed 50% Feeding Ability Independent Exam: Constitutional; Afebrile, cooperative, alert, not in distress. morbid obesity Eyes- No icterus, , No periorbital swelling Ears- Ext ear normal, hearing normal to conversation. Neck- Midline trachea, supple Respiratory system: Air Entry equal on both sides, No crackles or wheezing, no rhonchi. CVS- Rate rhythm irregular, S1,S2 heard, no gallop, no rub. Abdomen- Soft nontender abdomen, no organomegaly, no tenderness, no guarding or rigidity, large pannus AGILITY INSTRUCTOR- AOOx3, moving all extremities, no gross focal deficit noted. Medical - PN: Obj Da - Labs CBC & Chem 7: 04/21/18 04:00 04/21/18 04:00 Labs: Abnormal Lab Results 04/21/18 04/21/18 04/21/18 04:00 04:00 04:00 RBC 2.75 L Hgb 9.4 L Hct 28.2 L MCV 102.6 H MCH 34.3 H RDW 17.0 H Plt Count 126 L Lymph % (Auto) 15.2 L Lymph # (Auto) 0.7 L PT 23.5 H INR 2.1 H Chloride 94 L Carbon Dioxide 34 H BUN 54 H Creatinine 2.6 H Uric Acid 16.5 H Direct Bilirubin 0.5 H NT-Pro-B Natriuret Pep Albumin 3.1 L Globulin 4.7 H Albumin/Globulin Ratio 0.7 L Ur Leukocyte Esterase Hyaline Casts U [place] Prot/Creat Ratio 04/20/18 04/20/18 04/20/18 13:30 13:30 12:00 RBC Hgb Hct MCV MCH RDW Plt Count Lymph % (Auto) Lymph # (Auto) PT INR Chloride 93 L Carbon Dioxide 32 H BUN 55 H Creatinine 2.7 H Uric Acid Direct Bilirubin NT-Pro-B Natriuret Pep 50870.0 H Albumin 3.1 L Globulin Albumin/Globulin Ratio Ur Leukocyte Esterase 25 A Hyaline Casts 8 H U [place] Prot/Creat Ratio 0.24 H 04/20/18 04/20/18 12:00 12:00 RBC 2.93 L Hgb 9.9 L Hct 30.0 L MCV 102.3 H MCH RDW 16.6 H Plt Count 136 L Lymph % (Auto) Lymph # (Auto) 0.9 L PT 21.4 H INR 1.8 H Chloride Carbon Dioxide BUN Creatinine Uric Acid Direct Bilirubin NT-Pro-B Natriuret Pep Albumin Globulin Albumin/Globulin Ratio Ur Leukocyte Esterase Hyaline Casts U [place] Prot/Creat Ratio Meds: Medications Acetaminophen (Tylenol) 650 mg PO Q6HP PRN PRN Reason: PAIN/FEVER > 101 Hydrocodone Bitart/Acetaminophen ([place] 10/325mg) 2 tab PO Q6HP PRN PRN Reason: Pain Last Admin: 04/21/18 09:28 Dose: 2 tab Fluconazole (Diflucan) 200 mg PO DAILY ANGELA Stop: 04/28/18 12:25 Last Admin: 04/21/18 12:43 Dose: 200 mg Furosemide (Lasix) 80 mg IV BIDD ANGELA Last Admin: 04/21/18 09:17 Dose: 80 mg Heparin Sodium (Porcine) (Heparin Flush) 2 ml IV Q12 [facility] Last Admin: 04/21/18 09:18 Dose: 2 ml Levofloxacin (Levaquin) 500 mg PO Q48H [facility] Last Admin: 04/20/18 16:22 Dose: 500 mg Naloxone HCl (Narcan) 0.1 mg IV Q2MIN PRN PRN Reason: Opiate Reversal Ondansetron HCl (Zofran Odt) 4 mg SL Q4HP PRN PRN Reason: Nausea And Vomiting Polyethylene Glycol (Miralax) 17 gm PO DAILYP PRN PRN Reason: Constipation Last Admin: 04/21/18 09:22 Dose: 17 gm Potassium Chloride (Kdur) 20 meq PO QAMCC [facility] Last Admin: 04/21/18 09:17 Dose: 20 meq Sodium Chloride (Saline Flush) 10 ml IV Q8 [facility] Last Admin: 04/21/18 05:18 Dose: 10 ml Sodium Chloride (Saline Flush) 10 ml IV UD PRN PRN Reason: FLUSH Last Admin: 04/21/18 08:00 Dose: 10 ml Sodium Chloride (Saline Flush) 10 ml IV Q12 [facility] Last Admin: 04/21/18 09:22 Dose: 10 ml Warfarin Sodium (Coumadin Per Pharmacy) 1 order PO UD [facility] Warfarin Sodium (Coumadin) 5 mg PO ONCE@1400 ONE Stop: 04/21/18 14:01 Medical - PN: A/P - Time Spent With Patient Total time spent is greater than 50% in coordination of care (as documented) at patient's floor/unit and/or counseling patient: - Narrative A/P Narrative: A/P Congestive Heart failure Acute cor pulmonale Acute on chr renal failure/ Cardio renal syndrome Atrial fibrillation, s/p pacemaker Obstructive sleep apnea Bed bound status / Morbid obesity Chronic respiratory failure Osteoarthritis. chr wounds Lymphdedema Pneumonia Plan continue to monitor on tele continue lasix IV bid, monitor for response, consider addition of chlorothiazide / metolozone if inadequate response Unable to place collazo in the past, but the patient is able to void ok monitor renal function, creat somewhat better today echo done at outside facility in march reviewed, near normal lvef, but severely dilated rv resume digoxin, I wonder if patient condition worsened as he was not on digoxin. tachycardic this AM, prn IV metoprolol for now, IV digoxin. He is compliant with restrictions and compliant with medication therapy. Nephrology is following, Pt to get CPAP for sleep apnea, uses it at home continue oxygen supplementation for hypoxia CXR showed pna, which is resolving, will just use levofloxacin to complete the course continue home meds, as appropriate, hold beta blockers for now, monitor respose to bp and resume dosing if patient able to tolerate DVT on coumadin with therapeutic INR 2.1 today FUll code CArdiac diet Overall has poor prognosis, has explained to him that based on the last echo he had severe pulm htn. Medical - PN: Qual - VTE Deep Vein Thrombosis/Pulmonary Embolism Present on Admission: No
[2018-04-21] MEDS ORDERED: WARFARIN 5 MG TABLET PO ONE (14:00)
--- NOTE | 2018-04-21 18:54 | General Surgery Consult Note ---
History of Present Illness Patient information: Note initiated : 04/21/18 at 6:52 pm Service Date, if different from initiated Date: [] Patient: Branden Espinosa 57 y/o M admitted on 04/20/18 for Worsening Renal Failure. Chief Complaint: [] Consult date: 04/21/18 Requesting physician: Arturo Alvarenga (Wound Care Ulcer Right leg) History of present illness: 04/21/2018 I saw this patient in telemetry room 118 along with Minerva FRANKLIN In Patient wound care services. I know this patient from past. Super morbid Obese, HTN, CAD, JENNY, Multiple medical problems and h/o skin and sub cutaneous wounds Right lower leg and Right hip area. Right Hip wound had closed after several months. Right leg wound is chronic and patient attends to this with his HHN or friends for dressing changes. This time around admitted to the hospital emergently for cardia, pulmonary and renal problems. Being managed by hospitalist team. Wound care consulted for review and follow up. Medications and Allergies Home Medications Medication Instructions Recorded Confirmed Type carvedilol 12.5 mg tablet 12.5 mg PO BID #180 tab 09/06/17 04/20/18 Rx ferrous sulfate 300 mg (60 mg 300 mg PO ONCE ml 12/29/17 04/20/18 History iron)/5 mL oral liquid digoxin 125 mcg tablet 125 mcg PO QDAY #90 tab 12/30/17 04/20/18 Rx lisinopril 2.5 mg tablet 2.5 mg PO QDAY #90 tab 02/01/18 04/20/18 Rx torsemide 20 mg tablet 60 mg PO BID #360 tab 02/01/18 04/20/18 Rx honey 80 % topical gel 1 applic TOPICAL QDAY #44 ml 02/08/18 04/20/18 Rx Bariatric Hospital Bed 1 unit QDAY 03/09/18 04/20/18 History CPAP Supplies 1 order INTRANASAL HS 03/09/18 04/20/18 History furosemide 40 mg tablet 40 mg PO TID #90 tab 03/24/18 04/20/18 Rx potassium chloride ER 10 mEq 20 meq PO QDAY #60 tab 03/24/18 04/20/18 Rx tablet,extended release hydrocodone 10 mg-acetaminophen 2 tab PO Q6H PRN #170 tab 03/25/18 04/20/18 Rx 325 mg tablet metolazone 2.5 mg tablet 2.5 mg PO .QOD #30 tab 04/12/18 04/20/18 Rx Cefuroxime [Ceftin] 500 mg PO Q12 #20 tab 04/18/18 04/20/18 Rx warfarin 5 mg tablet See Label Instructions PO .COMPLEX 04/19/18 04/20/18 Rx #100 tab Low Air Loss Mattress 1 each .ROUTE DAILY 04/20/18 04/20/18 History Allergies Allergy/AdvReac Type Severity Reaction Status Date / Time No Known Drug Allergies Allergy Verified 03/08/18 14:31 Exam Temp Pulse Resp BP Pulse Ox 98.3 F 109 H 20 113/70 98 04/21/18 15:37 04/21/18 15:37 04/21/18 15:37 04/21/18 15:37 04/21/18 15:37 - General physical appearance well developed, well nourished, no distress, no pain, chronically ill, other ( Super morbid obese. Limited mobility. Motorised scooter for mobility. Mostly bed confined. Able to move with help fromside to side. ) - Eyes PERRL, normal ocular movement - ENT normal pinna, normal nares, normal mucosa, no congestion - Head Head exam IM: Present: atraumatic, normal inspection, normocephalic - Neck no masses, no bruits, no venous distension - Cardiovascular Cardiovascular exam IM: Present: irregular rhythm - Respiratory normal respiratory effort dullness: bilateral (Lung bases) - Abdomen Abdomen: Present: soft, non tender, bowel sounds - Integumentary Present: other (EXTENSIVE fungal dermatitis rash lower back, posterior hips and thighs. NO open ulcers. ) - Neurologic Present: normal coordination, normal sensation, other (Moves all extremities.) - Musculoskeletal Present: other (Bed confined. Chronic wound RIGHT lowetr leg ulcer with granulation and cicatrization) - Psychiatric Present: oriented to time, oriented to person, oriented to place, speech is normal, memory intact Results - Labs 04/23/18 04:00 04/23/18 04:00 Abnormal lab results 04/21/18 04/21/18 04/21/18 Range/Units 04:00 04:00 04:00 RBC 2.75 L (4.50-5.90) M/mcL Hgb 9.4 L (13.5-16.5) g/dL Hct 28.2 L (41.0-55.0) % MCV 102.6 H (80.0-100.0) fL MCH 34.3 H (26.0-34.0) pg RDW 17.0 H (11.5-14.5) % Plt Count 126 L (140-440) K/mcL Lymph % (Auto) 15.2 L (15.5-49.0) % Lymph # (Auto) 0.7 L (1.5-4.8) K/mcL PT 23.5 H (11.9-14.5) sec INR 2.1 H (0.9-1.1) Chloride 94 L (96-108) mmol/L Carbon Dioxide 34 H (22-30) mmol/L BUN 54 H (6-20) mg/dl Creatinine 2.6 H (0.7-1.2) mg/dl Uric Acid 16.5 H (2.5-8.0) mg/dL Direct Bilirubin 0.5 H (0.0-0.3) mg/dL Albumin 3.1 L (3.2-5.2) gm/dL Globulin 4.7 H (2.2-3.7) gm/dL Albumin/Globulin Ratio 0.7 L (1.0-2.3) Diabetes panel 04/21/18 Range/Units 04:00 Sodium 137 (133-145) mmol/L Potassium 3.7 (3.3-5.1) mmol/L Chloride 94 L (96-108) mmol/L Carbon Dioxide 34 H (22-30) mmol/L BUN 54 H (6-20) mg/dl Creatinine 2.6 H (0.7-1.2) mg/dl Glucose 83 (70-105) mg/dL Calcium 8.6 (8.6-10.4) mg/dl AST 18 (0-37) U/l ALT 6 (0-40) U/l Alkaline Phosphatase 106 (39-117) U/L Total Protein 7.8 (5.9-8.4) gm/dL Albumin 3.1 L (3.2-5.2) gm/dL Triglycerides 94 (<150) mg/dl Calcium panel 04/21/18 Range/Units 04:00 Calcium 8.6 (8.6-10.4) mg/dl Phosphorus 3.4 (2.7-4.5) mg/dL Albumin 3.1 L (3.2-5.2) gm/dL Pituitary panel 04/21/18 Range/Units 04:00 Sodium 137 (133-145) mmol/L Potassium 3.7 (3.3-5.1) mmol/L Chloride 94 L (96-108) mmol/L Carbon Dioxide 34 H (22-30) mmol/L BUN 54 H (6-20) mg/dl Creatinine 2.6 H (0.7-1.2) mg/dl Glucose 83 (70-105) mg/dL Calcium 8.6 (8.6-10.4) mg/dl Adrenal panel 04/21/18 Range/Units 04:00 Sodium 137 (133-145) mmol/L Potassium 3.7 (3.3-5.1) mmol/L Chloride 94 L (96-108) mmol/L Carbon Dioxide 34 H (22-30) mmol/L BUN 54 H (6-20) mg/dl Creatinine 2.6 H (0.7-1.2) mg/dl Glucose 83 (70-105) mg/dL Calcium 8.6 (8.6-10.4) mg/dl Total Bilirubin 0.9 (0.0-1.0) mg/dL AST 18 (0-37) U/l ALT 6 (0-40) U/l Alkaline Phosphatase 106 (39-117) U/L Total Protein 7.8 (5.9-8.4) gm/dL Albumin 3.1 L (3.2-5.2) gm/dL All other labs normal. Assessment and Plan (1) Dermatitis associated with moisture Assessment: Chronic Moisture Associated Dermatitis of back , posterior hips, buttocks and thighs Plan: DAILY clean with chlorhexidine solution, Pat dry and apply skin protection and anti fungal creme to affected area of back, buttocks and thighs Status: Chronic Priority: Low (2) Ulcer of right lower extremity with fat layer exposed Assessment; Chronic pressure and trauma associated DRY dermatitis of lower lateral leg RIGHT . Much improved now. Less than 10 % hypergranulation. Plan: Clean with chlorhexidine and apply protective Aquacel Ag sheet and Foam bordered dressing. Cover with AMD Kerlix gauze roll. X 2 week Status: Chronic Priority: Low Comment: Palliative wound care. Clean with NS and apply antibiotic soaked wet / dry dressing changes three times a day. (3) Atrial fibrillation with RVR Status: Acute Priority: High (4) Acute renal failure Status: Acute Priority: High (5) Morbid obesity Status: Chronic Priority: Low
[2018-04-22] MEDS ORDERED: VANCOMYCIN 1,500 MG in 0.9 % SODIUM CHLORIDE 500 ML IV ONE (00:08)
[2018-04-22] MEDS ORDERED: METOPROLOL TARTRATE 5 MG/5 ML VIAL IV ONE (05:15)
[2018-04-22] MEDS ORDERED: DIGOXIN 500 MCG/2 ML AMPUL IV ONE (05:15)
[2018-04-22 05:26] LABS: Basophils # (Auto) 0 K/mcL (0.0-0.3); Basophils % (Auto) 0.2 % (0.0-2.0); Eosinophils # (Auto) 0.3 K/mcL (0.0-0.7); Eosinophils % (Auto) 5.1 % (0.0-7.0); Granulocytes % (Auto) 65.2 % (38.0-78.0); Lymphocytes # (Auto) 0.9 K/mcL (1.5-4.8); Lymphocytes % (Auto) 17.3 % (15.5-49.0); Mean Cell Volume 103.2 fL (80.0-100.0); Mean Corpuscular Hemoglobin 34.1 pg (26.0-34.0); Monocytes # (Auto) 0.6 K/mcL (0.1-0.9); Monocytes % (Auto) 12.2 % (1.0-12.0); Platelet Count 142 K/mcL (140-440); RBC 2.84 M/mcL (4.50-5.90); Red Cell Distribution Width 16.7 % (11.5-14.5)
[2018-04-22 06:07] LABS: ALT/SGPT 7 U/l (0-40); Albumin 3.1 gm/dL (3.2-5.2); Albumin/Globulin Ratio 0.6 (1.0-2.3); Alkaline Phosphatase 112 U/L (39-117); Bilirubin,Direct 0.4 mg/dL (0.0-0.3); Blood Urea Nitrogen 52 mg/dl (6-20); Gamma Glutamyl Transpeptidase 38 U/L (8-61); Iron 45 mcg/dl (61-157); Transferrin % Saturation 28 % (20-50); Unsaturated Iron Binding 114 mcg/dL (112-346); Uric Acid 16.9 mg/dL (2.5-8.0)
[2018-04-22 06:09] LABS: Ferritin 128.2 ng/ml (30-400)
--- NOTE | 2018-04-22 06:13 | Nephrology Progress Note ---
Subjective Patient information: Note initiated : 04/22/18 at 6:12 am Branden Espinosa is a [id number] male with chronic kidney disease stage 3, chronic anemia associated with chronic kidney disease, generalized edema, hypertension, morbid obesity, cor pulmonale, chronic atrial fibrillation on Coumadin (Echo on 12/03/17: LVEF 48%, mild global hypokinesis, right ventricle severely dilated, severe pulmonary hypertension), admitted on 04/20/18 for acute on chronic renal failure with fluid overload. Chief Complaint: Increased leg edema Principal diagnosis: Acute on chronic renal failure with fluid overload Interval history: Improved serum creatinine in the past 3 days. Tolerating diuresis with Furosemide 80 mg IV BIDD. Pertinent ROS: Weakness Shortness of breath Edema Wounds Objective - Vital Signs Vital signs: Vital Signs Temp Pulse Resp BP Pulse Ox 04/22/18 05:39 96 H 100/65 04/22/18 05:31 128 H 104/62 04/22/18 05:29 145 H 18 100/63 90 04/22/18 04:00 97.8 F 122 H 18 96/61 04/21/18 23:32 98.4 F 111 H 18 98/64 94 04/21/18 23:24 22 90 04/21/18 19:51 98.2 F 107 H 18 115/74 94 04/21/18 19:39 18 94 04/21/18 15:37 98.3 F 109 H 20 113/70 98 04/21/18 12:00 98.1 F 114 H 20 123/72 97 04/21/18 08:10 115/72 04/21/18 07:00 98.2 F 16 101/69 97 Intake and Output 04/21/18 04/22/18 04/22/18 21:59 05:59 13:59 Intake Total 440 / 440 120 / 120 Output Total 976 / 976 650 / 650 Balance -536 / -536 -530 / -530 Intake: Oral 320 / 320 120 / 120 GI Tube Flush 120 / 120 Output: Void Amount 975 / 975 650 / 650 # of times incontinent of urine Other: Meal Dinner Percent of Meal Consumed 75% Feeding Ability Assist with Tray Set Up # Voids 1 # Bowel Movements 0 Weight 470 lb Intake & Output: Intake & Output 04/21/18 04/22/18 04/22/18 21:59 05:59 13:59 Intake Total 440 / 440 120 / 120 Output Total 976 / 976 650 / 650 Balance -536 / -536 -530 / -530 Weight 470 lb Intake: Oral 320 / 320 120 / 120 GI Tube Flush 120 / 120 Output: Void Amount 975 / 975 650 / 650 # of times incontinent of urine Other: Meal Dinner Percent of Meal Consumed 75% Feeding Ability Assist with Tray Set Up # Voids 1 # Bowel Movements 0 - General Appearance General appearance: obese, chronically ill EENT: mucous membranes dry Neck: supple Respiratory: course breath sounds Cardiology: edema Gastrointestinal: normoactive bowel sounds, no tenderness Integumentary: ulcer, chronic venous stasis Neurologic: no focal deficit, alert and oriented x3 Musculoskeletal: no deformities Psychiatric: mood/affect appropriate, cooperative - Lab 04/22/18 04:00 04/22/18 04:00 Most recent lab results Calcium 8.9 mg/dl (8.6-10.4) 04/22/18 04:00 Phosphorus 3.2 mg/dL (2.7-4.5) 04/22/18 04:00 Magnesium 2.2 mg/dL (1.6-2.5) 04/22/18 04:00 Assessment and Plan (1) Acute on chronic kidney failure Previous work up: Renal US on 12/31/17: Slightly echogenic renal parenchyma bilaterally which may be seen with chronic medical renal disease. Kidneys are otherwise anatomically normal. Labs on 12/31/17: Urinalysis yellow, hazy, pH 6.0, SG 1.012, protein negative , occult blood 0.03, no cellular casts, random protein/creatinine ratio 230 mg/ g creatinine and random microalbumin/creatinine ratio 19 mg/g creatinine. Progress: Adequate urine output Creatinine trend down Metabolic alkalosis Fluid overload, improving Status: Acute Priority: Medium Qualifiers: Acute renal failure type: unspecified Chronic kidney disease stage: stage 3 (moderate) Qualified Code(s): N17.9 - Acute kidney failure, unspecified; N18.3 - Chronic kidney disease, stage 3 (moderate) (2) Other fluid overload Fluid overload associated with chronic cor pulmonale (Echo on 12/03/17: LVEF 48% , mild global hypokinesis, right ventricle severely dilated, severe pulmonary hypertension). I recommended adequate treatment of obstructive sleep apnea. He stated he is not using his new CPAP because it turns of for air leak. He is still using the old one but does ankur think pressures are enough. I recommended calling the service for evaluation. Prognosis very poor. Status: Chronic Priority: Medium
[2018-04-22 06:16] LABS: Vitamin B12 883.8 pg/ml (232-1245)
[2018-04-22] MEDS: 0.9 % SODIUM CHLORIDE 10 ML SYRINGE IV SCH ×5 (07:03→21:00)
[2018-04-22] MEDS: POTASSIUM CHLORIDE 20 MEQ TABLET PO SCH (09:07)
[2018-04-22] MEDS: FLUCONAZOLE 100 MG TABLET PO SCH (09:07)
[2018-04-22] MEDS: FUROSEMIDE 100 MG/10 ML VIAL IV SCH ×2 (09:07→16:35)
[2018-04-22] MEDS ORDERED: POLYETHYLENE GLYCOL 3350 17 GM PACKET PO SCH (09:21)
[2018-04-22] MEDS: HYDROcodone/APAP 10/325MG TABLET PO PRN (09:24)
[2018-04-22] MEDS: POLYETHYLENE GLYCOL 3350 17 GM PACKET PO PRN (09:24)
[2018-04-22] MEDS ORDERED: POLYETHYLENE GLYCOL 3350 17 GM PACKET PO PRN (12:51)
[2018-04-22] MEDS ORDERED: WARFARIN 5 MG TABLET PO ONE (14:00)
[2018-04-22] MEDS: DIGOXIN 125 MCG TABLET PO SCH (14:29)
--- NOTE | 2018-04-22 14:56 | Internal Med Progress Note ---
Medical - PN: Subj Patient information: Note initiated : 04/22/18 at 2:53 pm Service Date, if different from initiated Date: [] Patient: Branden Espinosa 57 y/o M admitted on 04/20/18 for Worsening Renal Failure. Chief Complaint: [] Interval history: Mr. Espinosa is a 57 year old Male with history of morbid obesity, bedbound, severe pulmonary hypertension, congestive heart failure, chronic kidney disease atrial fibrillation. The patient presents to the hospital for worsening shortness of breath and increased edema in his body. The patient was discharged from this facility I believe on 20 March. He was transferred to [facility] for placement of a pacemaker. His admission in March was also for increased swelling, worsening renal function and was treated as congestive heart failure. At that point in time the patient was supratherapeutic and his INR as well as supratherapeutic and his digoxin level. Digoxin was held. The patient eventually was transferred to a higher center for placement of a pacemaker because of significant cardiac pauses. He underwent the pacemaker placement and was discharged from the facility. According to the patient since his discharge from the tertiary facility the patient has been having increased swelling in his lower extremities. This has been progressively getting worse, this has been accompanied by shortness of breath. He denies any other acute complaints or concerns. He denies taking in too much fluid he is watching his salt intake and is not taking any NSAIDs. The patient denies any chest pain denies any dizziness he does have intermittent changes in vision. The patient was being followed by nephrology in the outpatient, his dose of diuretics were being changed however despite this the patient's edema kept getting worse and therefore the patient was asked to come to the emergency room for evaluation. In the ER the patient was noted to have worsening renal failure, elevated bnp, significant edema, cxr was clear, showed resolving pna, ekg showed poor voltate , afib, 04/21 Patient seen and examined, overnight was not able to sleep well, there was some malfunction in the bariatric bed which kept beeping. Patient tired this morning. He has extensive erythema on his back possible fungal rash. Patient has not had a bowel movement for the last few days wanting a stool softener. He notes his shortness of breath is somewhat better but still not able to lie flat, denies any chest pain nausea vomiting. Appreciate nephrology input. Patient remains on IV Lasix, negative balance since yesterday,-1550 04/22 Pt seen examined, tired today, did not sleep well, bp on the lower end of normal , neg 1500 yesterday Pt has no other complaints. had bm this after noon. nephrology following. labs stable. Pertinent ROS: Denies headache, dizziness Denies chest pain, palpitations Denies cough or shortness of breath Denies abdominal pain, nausea or vomiting. - Constitutional Vitals: Vital Signs Temp Pulse Resp BP Pulse Ox 98.6 F 95 H 18 95/56 95 04/22/18 11:52 04/22/18 09:30 04/22/18 11:52 04/22/18 11:52 04/22/18 11:52 Period Temp Pulse Resp BP Sys/Andujar Pulse Ox Last 24 Hr 97.8 F-98.6 F 95-145 18-22 92-118/52-74 90-98 Intake and Output 04/22/18 04/22/18 04/22/18 05:59 13:59 21:59 Intake Total 120 / 120 220 / 220 180 / 180 Output Total 650 / 650 1075 / 1075 250 / 250 Balance -530 / -530 -855 / -855 -70 / -70 Intake & Output: Intake & Output 04/22/18 04/22/18 04/22/18 05:59 13:59 21:59 Intake Total 120 / 120 220 / 220 180 / 180 Output Total 650 / 650 1075 / 1075 250 / 250 Balance -530 / -530 -855 / -855 -70 / -70 Intake: Oral 120 / 120 220 / 220 180 / 180 Output: Void Amount 650 / 650 1075 / 1075 250 / 250 Other: Stool Size Large Stool Color Brown Stool Consistency Formed # Voids 1 # Bowel Movements 0 1 Exam: Constitutional; Afebrile, cooperative, alert, not in distress. morbid obesity Eyes- No icterus, , No periorbital swelling Ears- Ext ear normal, hearing normal to conversation. Neck- Midline trachea, supple Respiratory system: Air Entry equal on both sides, No crackles or wheezing, no rhonchi. ant exam CVS- Rate rhythm regular, S1,S2 heard, no gallop, no rub. Abdomen- Soft nontender abdomen, no organomegaly, no tenderness, no guarding or rigidity, large pannus. PRESIDING STEWARD- AOOx3, moving all extremities, no gross focal deficit noted. Edema in lower extremities is improving, still has a significant amount of edema. Medical - PN: Obj Da - Labs CBC & Chem 7: 04/22/18 04:00 04/22/18 04:00 Labs: Abnormal Lab Results 04/22/18 04/22/18 04/22/18 04:00 04:00 04:00 RBC Hgb Hct MCV MCH RDW Plt Count Lymph % (Auto) [place] % (Auto) Lymph # (Auto) PT 24.8 H INR 2.2 H Chloride 94 L Carbon Dioxide 33 H BUN 52 H Creatinine 2.5 H Uric Acid 16.9 H Iron 45 L TIBC 159 L Direct Bilirubin 0.4 H NT-Pro-B Natriuret Pep Albumin 3.1 L Globulin 5.1 H Albumin/Globulin Ratio 0.6 L PTH Intact 98.7 H Ur Leukocyte Esterase Hyaline Casts U [place] Prot/Creat Ratio 04/22/18 04/21/18 04/21/18 04:00 04:00 04:00 RBC 2.84 L Hgb 9.7 L Hct 29.3 L MCV 103.2 H MCH 34.1 H RDW 16.7 H Plt Count Lymph % (Auto) [place] % (Auto) 12.2 H Lymph # (Auto) 0.9 L PT 23.5 H INR 2.1 H Chloride 94 L Carbon Dioxide 34 H BUN 54 H Creatinine 2.6 H Uric Acid 16.5 H Iron TIBC Direct Bilirubin 0.5 H NT-Pro-B Natriuret Pep Albumin 3.1 L Globulin 4.7 H Albumin/Globulin Ratio 0.7 L PTH Intact Ur Leukocyte Esterase Hyaline Casts U [place] Prot/Creat Ratio 04/21/18 04/20/18 04/20/18 04:00 13:30 13:30 RBC 2.75 L Hgb 9.4 L Hct 28.2 L MCV 102.6 H MCH 34.3 H RDW 17.0 H Plt Count 126 L Lymph % (Auto) 15.2 L [place] % (Auto) Lymph # (Auto) 0.7 L PT INR Chloride Carbon Dioxide BUN Creatinine Uric Acid Iron TIBC Direct Bilirubin NT-Pro-B Natriuret Pep Albumin Globulin Albumin/Globulin Ratio PTH Intact Ur Leukocyte Esterase 25 A Hyaline Casts 8 H U [place] Prot/Creat Ratio 0.24 H 04/20/18 04/20/18 04/20/18 12:00 12:00 12:00 RBC 2.93 L Hgb 9.9 L Hct 30.0 L MCV 102.3 H MCH RDW 16.6 H Plt Count 136 L Lymph % (Auto) [place] % (Auto) Lymph # (Auto) 0.9 L PT 21.4 H INR 1.8 H Chloride 93 L Carbon Dioxide 32 H BUN 55 H Creatinine 2.7 H Uric Acid Iron TIBC Direct Bilirubin NT-Pro-B Natriuret Pep 92891.0 H Albumin 3.1 L Globulin Albumin/Globulin Ratio PTH Intact Ur Leukocyte Esterase Hyaline Casts U [place] Prot/Creat Ratio Meds: Medications Acetaminophen (Tylenol) 650 mg PO Q6HP PRN PRN Reason: PAIN/FEVER > 101 Hydrocodone Bitart/Acetaminophen ([place] 10/325mg) 2 tab PO Q6HP PRN PRN Reason: Pain Last Admin: 04/22/18 09:24 Dose: 2 tab Digoxin (Lanoxin) 125 mcg PO DAILY@1400 [facility] Last Admin: 04/22/18 14:29 Dose: 125 mcg Docusate Sodium (Colace) 100 mg PO BID [facility] Fluconazole (Diflucan) 200 mg PO DAILY [facility] Stop: 04/28/18 12:25 Last Admin: 04/22/18 09:07 Dose: 200 mg Furosemide (Lasix) 80 mg IV BIDD [facility] Last Admin: 04/22/18 09:07 Dose: 80 mg Heparin Sodium (Porcine) (Heparin Flush) 2 ml IV Q12 [facility] Last Admin: 04/22/18 09:07 Dose: 2 ml Levofloxacin (Levaquin) 500 mg PO Q48H [facility] Last Admin: 04/20/18 16:22 Dose: 500 mg Naloxone HCl (Narcan) 0.1 mg IV Q2MIN PRN PRN Reason: Opiate Reversal Ondansetron HCl (Zofran Odt) 4 mg SL Q4HP PRN PRN Reason: Nausea And Vomiting Polyethylene Glycol (Miralax) 17 gm PO DAILY PRN PRN Reason: Constipation Potassium Chloride (Kdur) 20 meq PO QAMCC [facility] Last Admin: 04/22/18 09:07 Dose: 20 meq Sodium Chloride (Saline Flush) 10 ml IV Q8 [facility] Last Admin: 06/15/18 14:30 Dose: 10 ml Sodium Chloride (Saline Flush) 10 ml IV UD PRN PRN Reason: FLUSH Last Admin: 04/21/18 17:15 Dose: 10 ml Sodium Chloride (Saline Flush) 10 ml IV Q12 [facility] Last Admin: 04/22/18 09:08 Dose: 10 ml Warfarin Sodium (Coumadin Per Pharmacy) 1 order PO UD [facility] Medical - PN: A/P - Time Spent With Patient Total time spent is greater than 50% in coordination of care (as documented) at patient's floor/unit and/or counseling patient: - Narrative A/P Narrative: A/P Congestive Heart failure Acute cor pulmonale Acute on chr renal failure/ Cardio renal syndrome Atrial fibrillation, s/p pacemaker Obstructive sleep apnea Bed bound status / Morbid obesity Chronic respiratory failure Osteoarthritis. chr wounds Lymphdedema Pneumonia Plan continue to monitor on tele continue lasix IV bid, monitor for response, consider addition of chlorothiazide / metolozone if inadequate response, given his soft blood pressures, will need pressor therapy to maintain bp for aggresive diuresis Unable to place collazo in the past, but the patient is able to void ok monitor renal function, creat is 2.5, improved from 2.6 yesterday. echo done at outside facility in march reviewed, near normal lvef, but severely dilated rv resume digoxin, I wonder if patient condition worsened as he was not on digoxin. tachycardic this AM, prn IV metoprolol for now, IV digoxin. strt on oral digoxin He is compliant with restrictions and compliant with medication therapy. Nephrology is following, continue cpap at night continue oxygen supplementation for hypoxia CXR showed pna, which is resolving, will just use levofloxacin to complete the course continue home meds, as appropriate, hold beta blockers for now, monitor response to bp and resume dosing if patient able to tolerate DVT on coumadin with therapeutic INR FUll code CArdiac diet Overall has poor prognosis, has explained to him that based on the last echo he had severe pulm htn. Medical - PN: Qual - VTE Deep Vein Thrombosis/Pulmonary Embolism Present on Admission: No
[2018-04-22] MEDS: LEVOFLOXACIN 500 MG TABLET PO SCH (16:35)
--- NOTE | 2018-04-22 20:12 | General Surgery Progress Note ---
Subjective Narrative: Note initiated : 04/22/18 at 8:09 pm Service Date, if different from initiated Date: [] Patient: Branden Espinosa 57 y/o M admitted on 04/20/18 for Worsening Renal Failure. Chief Complaint: [] I saw patient and reviewed his progress with [facility] and Dr. Alvarenga Hospitalist Physician. At this time patient is sleeping, No cardio respiratory distress, VSS Sinus Rythm, O2 sats > 90 Objective Temp Pulse Resp BP Pulse Ox 97 F 86 18 102/61 92 04/22/18 19:38 04/22/18 17:23 04/22/18 19:38 04/22/18 19:38 04/22/18 19:38 - Additional Data Intake & Output - Last 24 hours: Intake & Output 04/20/18 04/21/18 04/22/18 04/23/18 05:59 05:59 05:59 05:59 Intake Total 300 / 300 1200 / 1200 400 / 400 Output Total 1850 / 1850 2754 / 2754 2024 / 2024 Balance -1550 / -1550 -1554 / -1554 -1625 / -1625 Weight 472 lb 470 lb - Labs 04/22/18 04:00 04/22/18 04:00 Diabetes panel 04/22/18 Range/Units 04:00 Sodium 138 (133-145) mmol/L Potassium 3.9 (3.3-5.1) mmol/L Chloride 94 L (96-108) mmol/L Carbon Dioxide 33 H (22-30) mmol/L BUN 52 H (6-20) mg/dl Creatinine 2.5 H (0.7-1.2) mg/dl Glucose 89 (70-105) mg/dL Calcium 8.9 (8.6-10.4) mg/dl AST 20 (0-37) U/l ALT 7 (0-40) U/l Alkaline Phosphatase 112 (39-117) U/L Total Protein 8.2 (5.9-8.4) gm/dL Albumin 3.1 L (3.2-5.2) gm/dL Triglycerides 103 (<150) mg/dl Calcium panel 04/22/18 Range/Units 04:00 Calcium 8.9 (8.6-10.4) mg/dl Phosphorus 3.2 (2.7-4.5) mg/dL Albumin 3.1 L (3.2-5.2) gm/dL Pituitary panel 04/22/18 Range/Units 04:00 Sodium 138 (133-145) mmol/L Potassium 3.9 (3.3-5.1) mmol/L Chloride 94 L (96-108) mmol/L Carbon Dioxide 33 H (22-30) mmol/L BUN 52 H (6-20) mg/dl Creatinine 2.5 H (0.7-1.2) mg/dl Glucose 89 (70-105) mg/dL Calcium 8.9 (8.6-10.4) mg/dl Adrenal panel 04/22/18 Range/Units 04:00 Sodium 138 (133-145) mmol/L Potassium 3.9 (3.3-5.1) mmol/L Chloride 94 L (96-108) mmol/L Carbon Dioxide 33 H (22-30) mmol/L BUN 52 H (6-20) mg/dl Creatinine 2.5 H (0.7-1.2) mg/dl Glucose 89 (70-105) mg/dL Calcium 8.9 (8.6-10.4) mg/dl Total Bilirubin 0.9 (0.0-1.0) mg/dL AST 20 (0-37) U/l ALT 7 (0-40) U/l Alkaline Phosphatase 112 (39-117) U/L Total Protein 8.2 (5.9-8.4) gm/dL Albumin 3.1 L (3.2-5.2) gm/dL Assessment and Plan - Narrative A/P Narrative: Assessment : Wound Care Follow up. Plan: Reassess and check wounds in AM - Time Spent With Patient Total time spent is greater than 50% in coordination of care (as documented) at patient's floor/unit and/or counseling patient: less than 15 minutes
[2018-04-22] MEDS: DOCUSATE SODIUM 100 MG CAPSULE PO SCH (20:59)
[2018-04-23 05:15] LABS: Basophils # (Auto) 0 K/mcL (0.0-0.3); Basophils % (Auto) 0.4 % (0.0-2.0); Eosinophils # (Auto) 0.2 K/mcL (0.0-0.7); Eosinophils % (Auto) 5.9 % (0.0-7.0); Granulocytes % (Auto) 62.4 % (38.0-78.0); Lymphocytes # (Auto) 0.8 K/mcL (1.5-4.8); Lymphocytes % (Auto) 18.6 % (15.5-49.0); Mean Cell Volume 102.4 fL (80.0-100.0); Mean Corpuscular HGB Conc 33.4 g/dL (31.0-36.0); Mean Corpuscular Hemoglobin 34.2 pg (26.0-34.0); Monocytes # (Auto) 0.5 K/mcL (0.1-0.9); Monocytes % (Auto) 12.7 % (1.0-12.0); Platelet Count 128 K/mcL (140-440); RBC 2.64 M/mcL (4.50-5.90); Red Cell Distribution Width 17.1 % (11.5-14.5)
[2018-04-23 05:30] LABS: ALT/SGPT 6 U/l (0-40); Albumin 2.8 gm/dL (3.2-5.2); Albumin/Globulin Ratio 0.6 (1.0-2.3); Alkaline Phosphatase 99 U/L (39-117); Bilirubin,Direct 0.4 mg/dL (0.0-0.3); Blood Urea Nitrogen 50 mg/dl (6-20); Gamma Glutamyl Transpeptidase 35 U/L (8-61); Uric Acid 16.6 mg/dL (2.5-8.0)
[2018-04-23] MEDS: 0.9 % SODIUM CHLORIDE 10 ML SYRINGE IV SCH ×5 (05:48→21:31)
--- NOTE | 2018-04-23 06:08 | Nephrology Progress Note ---
Subjective Patient information: Note initiated : 04/23/18 at 6:06 am Branden Espinosa is a [id number]-mex male with chronic kidney disease stage 3, chronic anemia associated with chronic kidney disease, generalized edema, hypertension, morbid obesity, cor pulmonale, chronic atrial fibrillation on Coumadin (Echo on 12/03/17: LVEF 48%, mild global hypokinesis, right ventricle severely dilated, severe pulmonary hypertension), admitted on 04/20/18 for acute on chronic renal failure with fluid overload. Chief Complaint: Worsening leg edema Principal diagnosis: Acute on chronic renal failure with fluid overload Interval history: Improved serum creatinine in the past 4 days. Tolerating diuresis. Pertinent ROS: Weakness Shortness of breath Edema Wounds Objective - Vital Signs Vital signs: Vital Signs Temp Pulse Pulse Resp BP Pulse Ox 04/23/18 04:00 97.8 F 88 16 113/74 92 04/22/18 23:43 98.4 F 97 H 18 135/76 100 04/22/18 23:33 95 04/22/18 23:32 18 95 04/22/18 20:00 18 04/22/18 19:38 97 F 18 102/61 92 04/22/18 17:23 86 04/22/18 16:00 98.6 F 18 101/50 95 04/22/18 11:52 98.6 F 18 95/56 95 04/22/18 09:30 95 H 118/52 96 04/22/18 07:15 98.3 F 110 H 22 92/58 92 Intake and Output 04/22/18 04/23/18 04/23/18 21:59 05:59 13:59 Intake Total 180 / 180 220 / 220 Output Total 1300 / 1300 951 / 951 Balance -1120 / -1120 -731 / -731 Intake: Oral 180 / 180 220 / 220 Output: Void Amount 1300 / 1300 950 / 950 # of times incontinent of urine 0 / 0 1 / Other: # Voids 2 1 # Bowel Movements 0 Weight 470 lb 470 lb Intake & Output: Intake & Output 04/22/18 04/23/18 04/23/18 21:59 05:59 13:59 Intake Total 180 / 180 220 / 220 Output Total 1300 / 1300 951 / 951 Balance -1120 / -1120 -731 / -731 Weight 470 lb 470 lb Intake: Oral 180 / 180 220 / 220 Output: Void Amount 1300 / 1300 950 / 950 # of times incontinent of urine 0 / 0 1 / Other: # Voids 2 1 # Bowel Movements 0 - General Appearance General appearance: obese, chronically ill EENT: mucous membranes dry Neck: supple Respiratory: rales Cardiology: edema Gastrointestinal: no tenderness Integumentary: ulcer, chronic venous stasis Neurologic: no focal deficit, alert and oriented x3 Musculoskeletal: no deformities Psychiatric: mood/affect appropriate, cooperative - Lab 04/23/18 04:00 04/23/18 04:00 Most recent lab results Calcium 8.8 mg/dl (8.6-10.4) 04/23/18 04:00 Phosphorus 2.7 mg/dL (2.7-4.5) 04/23/18 04:00 Magnesium 2.1 mg/dL (1.6-2.5) 04/23/18 04:00 Assessment and Plan (1) Acute on chronic kidney failure New work up: Renal US on 12/31/17: Slightly echogenic renal parenchyma bilaterally which may be seen with chronic medical renal disease. Kidneys are otherwise anatomically normal. Labs on 04/20/18: Urinalysis yellow, hazy, pH 5.0, SG 1.013, protein negative , occult blood negative, random protein/creatinine ratio 240 mg/g creatinine and random urine sodium 49. Labs on 04/22/18: iPTH 98.7 Previous work up: Renal US on 12/31/17: Slightly echogenic renal parenchyma bilaterally which may be seen with chronic medical renal disease. Kidneys are otherwise anatomically normal. Labs on 12/31/17: Urinalysis yellow, hazy, pH 6.0, SG 1.012, protein negative , occult blood 0.03, no cellular casts, random protein/creatinine ratio 230 mg/ g creatinine and random microalbumin/creatinine ratio 19 mg/g creatinine. Progress: Urine output: 3325 ml Creatinine down to 2.2 Metabolic alkalosis, worsening Fluid overload, improving Status: Acute Priority: Medium Qualifiers: Acute renal failure type: unspecified Chronic kidney disease stage: stage 3 (moderate) Qualified Code(s): N17.9 - Acute kidney failure, unspecified; N18.3 - Chronic kidney disease, stage 3 (moderate) (2) Other fluid overload Fluid overload associated with chronic cor pulmonale (Echo on 12/03/17: LVEF 48% , mild global hypokinesis, right ventricle severely dilated, severe pulmonary hypertension). I recommended adequate treatment of obstructive sleep apnea. He stated he is not using his new CPAP because it turns of for air leak. He is still using the old one but does not think pressures are enough. I recommended calling the service for evaluation. Status: Chronic Priority: Medium
[2018-04-23] MEDS: HYDROcodone/APAP 10/325MG TABLET PO PRN ×2 (07:45→14:20)
[2018-04-23] MEDS: POTASSIUM CHLORIDE 20 MEQ TABLET PO SCH (07:50)
[2018-04-23] MEDS: FUROSEMIDE 100 MG/10 ML VIAL IV SCH ×3 (07:51→17:03)
[2018-04-23] MEDS: FLUCONAZOLE 100 MG TABLET PO SCH (08:42)
[2018-04-23] MEDS: DOCUSATE SODIUM 100 MG CAPSULE PO SCH ×2 (08:42→21:30)
--- NOTE | 2018-04-23 09:13 | Internal Med Progress Note ---
Medical - PN: Subj Patient information: Note initiated : 04/23/18 at 9:10 am Service Date, if different from initiated Date: [] Patient: Branden Espinosa 57 y/o M admitted on 04/20/18 for Worsening Renal Failure. Chief Complaint: [] Interval history: Mr. Espinosa is a 57 year old Male with history of morbid obesity, bedbound, severe pulmonary hypertension, congestive heart failure, chronic kidney disease atrial fibrillation. The patient presents to the hospital for worsening shortness of breath and increased edema in his body. The patient was discharged from this facility I believe on 20 March. He was transferred to [facility] for placement of a pacemaker. His admission in March was also for increased swelling, worsening renal function and was treated as congestive heart failure. At that point in time the patient was supratherapeutic and his INR as well as supratherapeutic and his digoxin level. Digoxin was held. The patient eventually was transferred to a higher center for placement of a pacemaker because of significant cardiac pauses. He underwent the pacemaker placement and was discharged from the facility. According to the patient since his discharge from the tertiary facility the patient has been having increased swelling in his lower extremities. This has been progressively getting worse, this has been accompanied by shortness of breath. He denies any other acute complaints or concerns. He denies taking in too much fluid he is watching his salt intake and is not taking any NSAIDs. The patient denies any chest pain denies any dizziness he does have intermittent changes in vision. The patient was being followed by nephrology in the outpatient, his dose of diuretics were being changed however despite this the patient's edema kept getting worse and therefore the patient was asked to come to the emergency room for evaluation. In the ER the patient was noted to have worsening renal failure, elevated bnp, significant edema, cxr was clear, showed resolving pna, ekg showed poor voltate , afib, 04/21 Patient seen and examined, overnight was not able to sleep well, there was some malfunction in the bariatric bed which kept beeping. Patient tired this morning. He has extensive erythema on his back possible fungal rash. Patient has not had a bowel movement for the last few days wanting a stool softener. He notes his shortness of breath is somewhat better but still not able to lie flat, denies any chest pain nausea vomiting. Appreciate nephrology input. Patient remains on IV Lasix, negative balance since yesterday,-1550 04/22 Pt seen examined, tired today, did not sleep well, bp on the lower end of normal , neg 1500 yesterday Pt has no other complaints. had bm this after noon. nephrology following. labs stable. 04/22 Pt seen examined, slept well last night, denies any acute complaints, noted some chest discomfort yesterday, no chest tightness or pressure, just a flicker, Pt is already anticoagulated with coumadin and INR is therapeutic The patient Creat is trending down, creat is 2.2, He is diuresing well, Neg 5L since admission Plan to use chlorothiazide this afternoon, and then followed by alecia to see if we can improve diuresis Pertinent ROS: Denies headache, dizziness Denies chest pain, palpitations Denies cough or shortness of breath Denies abdominal pain, nausea or vomiting. - Constitutional Vitals: Vital Signs Temp Pulse Resp BP Pulse Ox 98.0 F 120 H 18 124/81 97 04/23/18 08:00 04/23/18 08:00 04/23/18 08:00 04/23/18 08:00 04/23/18 08:00 Period Temp Pulse Resp BP Sys/Andujar Pulse Ox Last 24 Hr 97 F-98.6 F 86-120 -18 95-135/50-81 92-100 Intake and Output 04/22/18 04/23/18 04/23/18 21:59 05:59 13:59 Intake Total 180 / 180 220 / 220 60 / 60 Output Total 1300 / 1300 951 / 951 250 / 250 Balance -1120 / -1120 -731 / -731 -190 / -190 Weight 470 lb 470 lb Intake & Output: Intake & Output 04/22/18 04/23/18 04/23/18 21:59 05:59 13:59 Intake Total 180 / 180 220 / 220 60 / 60 Output Total 1300 / 1300 951 / 951 250 / 250 Balance -1120 / -1120 -731 / -731 -190 / -190 Weight 470 lb 470 lb Intake: Oral 180 / 180 220 / 220 60 / 60 Output: Void Amount 1300 / 1300 950 / 950 250 / 250 # of times incontinent of urine 0 / 0 1 / 1 Other: # Voids 2 1 # Bowel Movements 0 Exam: Constitutional; Afebrile, cooperative, alert, not in distress. Morbid obesity Eyes- No icterus, , No periorbital swelling Ears- Ext ear normal, hearing normal to conversation. Neck- Midline trachea, supple Respiratory system: Air Entry equal on both sides, No crackles or wheezing, no rhonchi. ant exam CVS- Rate rhythm regular, S1,S2 heard, no gallop, no rub. Abdomen- Soft nontender abdomen, no organomegaly, no tenderness, no guarding or rigidity, large pannus. ASSORTER- AOOx3, moving all extremities, no gross focal deficit noted. Edema: Pt still has significant edema in the dependent portions. Medical - PN: Obj Da - Labs CBC & Chem 7: 04/23/18 04:00 04/23/18 04:00 Labs: Abnormal Lab Results 04/23/18 04/23/18 04/23/18 04:00 04:00 04:00 WBC 4.2 L RBC 2.64 L Hgb 9.0 L Hct 27.0 L MCV 102.4 H MCH 34.2 H RDW 17.1 H Plt Count 128 L Lymph % (Auto) [place] % (Auto) 12.7 H Lymph # (Auto) 0.8 L PT 25.5 H INR 2.3 H Chloride 95 L Carbon Dioxide 37 H Anion Gap 7.0 L BUN 50 H Creatinine 2.2 H Uric Acid 16.6 H Iron TIBC Direct Bilirubin 0.4 H NT-Pro-B Natriuret Pep Albumin 2.8 L Globulin 4.6 H Albumin/Globulin Ratio 0.6 L PTH Intact Ur Leukocyte Esterase Hyaline Casts U [place] Prot/Creat Ratio 04/22/18 04/22/18 04/22/18 04:00 04:00 04:00 WBC RBC Hgb Hct MCV MCH RDW Plt Count Lymph % (Auto) [place] % (Auto) Lymph # (Auto) PT 24.8 H INR 2.2 H Chloride 94 L Carbon Dioxide 33 H Anion Gap BUN 52 H Creatinine 2.5 H Uric Acid 16.9 H Iron 45 L TIBC 159 L Direct Bilirubin 0.4 H NT-Pro-B Natriuret Pep Albumin 3.1 L Globulin 5.1 H Albumin/Globulin Ratio 0.6 L PTH Intact 98.7 H Ur Leukocyte Esterase Hyaline Casts U [place] Prot/Creat Ratio 04/22/18 04/21/18 04/21/18 04:00 04:00 04:00 WBC RBC 2.84 L Hgb 9.7 L Hct 29.3 L MCV 103.2 H MCH 34.1 H RDW 16.7 H Plt Count Lymph % (Auto) [place] % (Auto) 12.2 H Lymph # (Auto) 0.9 L PT 23.5 H INR 2.1 H Chloride 94 L Carbon Dioxide 34 H Anion Gap BUN 54 H Creatinine 2.6 H Uric Acid 16.5 H Iron TIBC Direct Bilirubin 0.5 H NT-Pro-B Natriuret Pep Albumin 3.1 L Globulin 4.7 H Albumin/Globulin Ratio 0.7 L PTH Intact Ur Leukocyte Esterase Hyaline Casts U [place] Prot/Creat Ratio 04/21/18 04/20/18 04/20/18 04:00 13:30 13:30 WBC RBC 2.75 L Hgb 9.4 L Hct 28.2 L MCV 102.6 H MCH 34.3 H RDW 17.0 H Plt Count 126 L Lymph % (Auto) 15.2 L [place] % (Auto) Lymph # (Auto) 0.7 L PT INR Chloride Carbon Dioxide Anion Gap BUN Creatinine Uric Acid Iron TIBC Direct Bilirubin NT-Pro-B Natriuret Pep Albumin Globulin Albumin/Globulin Ratio PTH Intact Ur Leukocyte Esterase 25 A Hyaline Casts 8 H U [place] Prot/Creat Ratio 0.24 H 04/20/18 04/20/18 04/20/18 12:00 12:00 12:00 WBC RBC 2.93 L Hgb 9.9 L Hct 30.0 L MCV 102.3 H MCH RDW 16.6 H Plt Count 136 L Lymph % (Auto) [place] % (Auto) Lymph # (Auto) 0.9 L PT 21.4 H INR 1.8 H Chloride 93 L Carbon Dioxide 32 H Anion Gap BUN 55 H Creatinine 2.7 H Uric Acid Iron TIBC Direct Bilirubin NT-Pro-B Natriuret Pep 81649.0 H Albumin 3.1 L Globulin Albumin/Globulin Ratio PTH Intact Ur Leukocyte Esterase Hyaline Casts U [place] Prot/Creat Ratio Meds: Medications Acetaminophen (Tylenol) 650 mg PO Q6HP PRN PRN Reason: PAIN/FEVER > 101 Hydrocodone Bitart/Acetaminophen ([place] 10/325mg) 2 tab PO Q6HP PRN PRN Reason: Pain Last Admin: 04/23/18 07:45 Dose: 2 tab Chlorothiazide Sodium (Diuril) 500 mg IV ONCE ONE Stop: 04/23/18 12:46 Digoxin (Lanoxin) 125 mcg PO DAILY@1400 [facility] Last Admin: 04/22/18 14:29 Dose: 125 mcg Docusate Sodium (Colace) 100 mg PO BID [facility] Last Admin: 04/23/18 08:42 Dose: 100 mg Fluconazole (Diflucan) 200 mg PO DAILY [facility] Stop: 04/28/18 12:25 Last Admin: 04/23/18 08:42 Dose: 200 mg Furosemide (Lasix) 80 mg IV BIDD [facility] Heparin Sodium (Porcine) (Heparin Flush) 2 ml IV Q12 [facility] Last Admin: 04/23/18 08:42 Dose: 2 ml Levofloxacin (Levaquin) 500 mg PO Q48H [facility] Last Admin: 04/22/18 16:35 Dose: 500 mg Naloxone HCl (Narcan) 0.1 mg IV Q2MIN PRN PRN Reason: Opiate Reversal Ondansetron HCl (Zofran Odt) 4 mg SL Q4HP PRN PRN Reason: Nausea And Vomiting Polyethylene Glycol (Miralax) 17 gm PO DAILY PRN PRN Reason: Constipation Potassium Chloride (Kdur) 20 meq PO QAMCC [facility] Last Admin: 04/23/18 07:50 Dose: 20 meq Sodium Chloride (Saline Flush) 10 ml IV Q8 [facility] Last Admin: 04/23/18 05:48 Dose: 10 ml Sodium Chloride (Saline Flush) 10 ml IV UD PRN PRN Reason: FLUSH Last Admin: 04/21/18 17:15 Dose: 10 ml Sodium Chloride (Saline Flush) 10 ml IV Q12 [facility] Last Admin: 04/23/18 08:59 Dose: 10 ml Warfarin Sodium (Coumadin Per Pharmacy) 1 order PO UD [facility] Medical - PN: A/P - Time Spent With Patient Total time spent is greater than 50% in coordination of care (as documented) at patient's floor/unit and/or counseling patient: - Narrative A/P Narrative: A/P Congestive Heart failure/ Acute cor pulmonale- On IV lasix bid, neg 5000ml since admission, add cholorthiazide today, continue lasix bid. Acute on chr renal failure/ Cardio renal syndrome- cret is 2.2, trending down slowly, nephrology following. Atrial fibrillation, s/p pacemaker- rate better controlled, on digoxin, prn IV metoprolol. on coumadin with therapeutic INR. Obstructive sleep apnea- on cpap at night. Bed bound status / Morbid obesity- will need to loose weight or else his prognosis is very poor rn long term care, his BMI is 71 Chronic respiratory failure- oxygen to keep osat > 90. Osteoarthritis.- prn pain meds. chr wounds- wound cares following, no e/o sepsis. acute infection Lymphdedema- on diuresis, will need wt loss Pneumonia - clinically stable, completed course, d/c abx DVT on coumadin with therapeutic INR FUll code CArdiac diet Overall has poor prognosis, has explained to him that based on the last echo he had severe pulm htn. Medical - PN: Qual - VTE Deep Vein Thrombosis/Pulmonary Embolism Present on Admission: No
--- NOTE | 2018-04-23 11:23 | General Surgery Progress Note ---
Subjective Narrative: Note initiated : 04/23/18 at 11:19 am Service Date, if different from initiated Date: [] Chief Complaint: [] Additional PMFSH (Level 3 Only): 04/23/2018 Patient seen with Shawn PRESLEY and Delicia FRANKLIN. Patient had an uneventful night. Wounds examined. Objective Temp Pulse Resp BP Pulse Ox 98.0 F 120 H 18 124/81 97 04/23/18 08:00 04/23/18 08:00 04/23/18 08:00 04/23/18 08:00 04/23/18 08:00 AVSS. No changed FELI. Patient moves by himself in bed with minimal assistance. FUNGAL DERMATITIS LOWER BACK, POSTERIOR HIP, BUTTOCKS. no acute ulcers or purulence. Right lower third leg wound is stable and improved from before. Small area of hypergranulation < 10 % ) Cleaned with chlorhexidine and dressed with Aquacel Ag sheet and Mepilex bordered foam. Fungal dermatitis of back to be treated with DAILY cleansing with Chlorhexidine soaked towel, Pat dry and apply skin protectant and antifungal cream - Additional Data Intake & Output - Last 24 hours: Intake & Output 04/21/18 04/22/18 04/23/18 04/24/18 05:59 05:59 05:59 05:59 Intake Total 300 / 300 1200 / 1200 620 / 620 180 / 180 Output Total 1850 / 1850 2754 / 2754 3326 / 3326 550 / 550 Balance -1550 / -1550 -1554 / -1554 -2706 / -2706 -370 / -370 Weight 472 lb 470 lb 470 lb - Labs 04/23/18 04:00 04/23/18 04:00 Diabetes panel 04/23/18 Range/Units 04:00 Sodium 139 (133-145) mmol/L Potassium 4.0 (3.3-5.1) mmol/L Chloride 95 L (96-108) mmol/L Carbon Dioxide 37 H (22-30) mmol/L BUN 50 H (6-20) mg/dl Creatinine 2.2 H (0.7-1.2) mg/dl Glucose 88 (70-105) mg/dL Calcium 8.8 (8.6-10.4) mg/dl AST 18 (0-37) U/l ALT 6 (0-40) U/l Alkaline Phosphatase 99 (39-117) U/L Total Protein 7.4 (5.9-8.4) gm/dL Albumin 2.8 L (3.2-5.2) gm/dL Triglycerides 100 (<150) mg/dl Calcium panel 04/23/18 Range/Units 04:00 Calcium 8.8 (8.6-10.4) mg/dl Phosphorus 2.7 (2.7-4.5) mg/dL Albumin 2.8 L (3.2-5.2) gm/dL Pituitary panel 04/23/18 Range/Units 04:00 Sodium 139 (133-145) mmol/L Potassium 4.0 (3.3-5.1) mmol/L Chloride 95 L (96-108) mmol/L Carbon Dioxide 37 H (22-30) mmol/L BUN 50 H (6-20) mg/dl Creatinine 2.2 H (0.7-1.2) mg/dl Glucose 88 (70-105) mg/dL Calcium 8.8 (8.6-10.4) mg/dl Adrenal panel 04/23/18 Range/Units 04:00 Sodium 139 (133-145) mmol/L Potassium 4.0 (3.3-5.1) mmol/L Chloride 95 L (96-108) mmol/L Carbon Dioxide 37 H (22-30) mmol/L BUN 50 H (6-20) mg/dl Creatinine 2.2 H (0.7-1.2) mg/dl Glucose 88 (70-105) mg/dL Calcium 8.8 (8.6-10.4) mg/dl Total Bilirubin 0.9 (0.0-1.0) mg/dL AST 18 (0-37) U/l ALT 6 (0-40) U/l Alkaline Phosphatase 99 (39-117) U/L Total Protein 7.4 (5.9-8.4) gm/dL Albumin 2.8 L (3.2-5.2) gm/dL Assessment and Plan - Narrative A/P Narrative: Assessment: Slow and steady progress. Plan: Continue ongoing wound care. - Time Spent With Patient Total time spent is greater than 50% in coordination of care (as documented) at patient's floor/unit and/or counseling patient: 15 - 24 minutes
[2018-04-23] MEDS ORDERED: CHLOROTHIAZIDE SODIUM 500 MG VIAL IV ONE (12:45)
[2018-04-23] MEDS ORDERED: WARFARIN 5 MG TABLET PO ONE (14:00)
[2018-04-23] MEDS: DIGOXIN 125 MCG TABLET PO SCH (14:14)
[2018-04-23] MEDS: ONDANSETRON ODT 4 MG TABLET SL PRN (18:26)
[2018-04-24 05:19] LABS: Basophils # (Auto) 0 K/mcL (0.0-0.3); Basophils % (Auto) 0.2 % (0.0-2.0); Eosinophils # (Auto) 0.3 K/mcL (0.0-0.7); Eosinophils % (Auto) 7.1 % (0.0-7.0); Granulocytes % (Auto) 63.7 % (38.0-78.0); Lymphocytes # (Auto) 0.8 K/mcL (1.5-4.8); Lymphocytes % (Auto) 17.5 % (15.5-49.0); Mean Cell Volume 103.7 fL (80.0-100.0); Mean Corpuscular Hemoglobin 34.2 pg (26.0-34.0); Monocytes # (Auto) 0.5 K/mcL (0.1-0.9); Monocytes % (Auto) 11.5 % (1.0-12.0); Platelet Count 125 K/mcL (140-440); RBC 2.82 M/mcL (4.50-5.90); Red Cell Distribution Width 17.4 % (11.5-14.5)
[2018-04-24 05:32] LABS: ALT/SGPT 7 U/l (0-40); Albumin 2.9 gm/dL (3.2-5.2); Albumin/Globulin Ratio 0.6 (1.0-2.3); Alkaline Phosphatase 104 U/L (39-117); Bilirubin,Direct 0.4 mg/dL (0.0-0.3); Blood Urea Nitrogen 49 mg/dl (6-20); Gamma Glutamyl Transpeptidase 38 U/L (8-61); Uric Acid 16.7 mg/dL (2.5-8.0)
[2018-04-24] MEDS: 0.9 % SODIUM CHLORIDE 10 ML SYRINGE IV SCH ×4 (06:18→22:00)
--- NOTE | 2018-04-24 06:24 | Nephrology Progress Note ---
Subjective Patient information: Note initiated : 04/24/18 at 6:22 am Branden Espinosa is a [id number] male with chronic kidney disease stage 3, chronic anemia associated with chronic kidney disease, generalized edema, hypertension, morbid obesity, cor pulmonale, chronic atrial fibrillation on Coumadin (Echo on 12/03/17: LVEF 48%, mild global hypokinesis, right ventricle severely dilated, severe pulmonary hypertension), admitted on 04/20/18 for acute on chronic renal failure with fluid overload. Chief Complaint: Worsening leg edema Principal diagnosis: Acute on chronic renal failure with fluid overload Interval history: Tolerating diuresis Pertinent ROS: Weakness Shortness of breath Edema Wounds Objective - Vital Signs Vital signs: Vital Signs Temp Pulse Pulse Resp BP Pulse Ox 04/24/18 04:00 97.1 F 16 127/69 91 04/24/18 00:00 97.6 F 16 113/72 94 04/23/18 20:19 110 H 20 98 04/23/18 19:25 112 H 90 04/23/18 19:17 97.8 F 16 111/65 97 04/23/18 15:30 98.2 F 16 127/71 98 04/23/18 12:00 98.1 F 18 124/74 96 04/23/18 08:00 98.0 F 120 H 18 124/81 97 Intake and Output 04/23/18 04/24/18 04/24/18 21:59 05:59 13:59 Intake Total 550 / 550 200 / 200 Output Total 2525 / 2525 1200 / 1200 Balance -1974 -[id number] Intake: Oral 550 / 550 200 / 200 Output: Void Amount 2525 / 2525 1200 / 1200 Other: Meal Dinner Percent of Meal Consumed 25% Feeding Ability Assist with Tray Set Up # Voids 1 Weight 470 lb Intake & Output: Intake & Output 04/23/18 04/24/18 04/24/18 21:59 05:59 13:59 Intake Total 550 / 550 200 / 200 Output Total 2525 / 2525 1200 / 1200 Balance -1974 Weight 470 lb Intake: Oral 550 / 550 200 / 200 Output: Void Amount 2525 / 2525 1200 / 1200 Other: Meal Dinner Percent of Meal Consumed 25% Feeding Ability Assist with Tray Set Up # Voids 1 - General Appearance General appearance: obese, chronically ill EENT: mucous membranes dry Neck: supple Respiratory: clear Cardiology: edema Gastrointestinal: no tenderness Integumentary: warm and dry Neurologic: no focal deficit, alert and oriented x3 Musculoskeletal: no deformities Psychiatric: mood/affect appropriate, cooperative - Lab 04/24/18 04:00 04/24/18 04:00 Most recent lab results Calcium 9.1 mg/dl (8.6-10.4) 04/24/18 04:00 Phosphorus 2.7 mg/dL (2.7-4.5) 04/24/18 04:00 Magnesium 2.0 mg/dL (1.6-2.5) 04/24/18 04:00 Assessment and Plan (1) Acute on chronic kidney failure New work up: Renal US on 12/31/17: Slightly echogenic renal parenchyma bilaterally which may be seen with chronic medical renal disease. Kidneys are otherwise anatomically normal. Labs on 04/20/18: Urinalysis yellow, hazy, pH 5.0, SG 1.013, protein negative , occult blood negative, random protein/creatinine ratio 240 mg/g creatinine and random urine sodium 49. Labs on 04/22/18: iPTH 98.7 Previous work up: Renal US on 12/31/17: Slightly echogenic renal parenchyma bilaterally which may be seen with chronic medical renal disease. Kidneys are otherwise anatomically normal. Labs on 12/31/17: Urinalysis yellow, hazy, pH 6.0, SG 1.012, protein negative , occult blood 0.03, no cellular casts, random protein/creatinine ratio 230 mg/ g creatinine and random microalbumin/creatinine ratio 19 mg/g creatinine. Progress: Urine output: 4750 ml Creatinine down to 2.1 Metabolic alkalosis, worsening Fluid overload, improving Plan: The patient would like to continue IV diuresis. Status: Acute Priority: Medium Qualifiers: Acute renal failure type: unspecified Chronic kidney disease stage: stage 3 (moderate) Qualified Code(s): N17.9 - Acute kidney failure, unspecified; N18.3 - Chronic kidney disease, stage 3 (moderate) (2) Other fluid overload Fluid overload associated with chronic cor pulmonale (Echo on 12/03/17: LVEF 48% , mild global hypokinesis, right ventricle severely dilated, severe pulmonary hypertension). I recommended adequate treatment of obstructive sleep apnea. He stated he is not using his new CPAP because it turns of for air leak. He is still using the old one but does not think pressures are enough. I recommended calling the service for evaluation. Status: Chronic Priority: Medium
[2018-04-24] MEDS ORDERED: acetaZOLAMIDE 250 MG TABLET PO ONE (07:51)
[2018-04-24] MEDS: METOLAZONE 2.5 MG TABLET PO SCH (08:23)
[2018-04-24] MEDS: HYDROcodone/APAP 10/325MG TABLET PO PRN (09:09)
[2018-04-24] MEDS: FUROSEMIDE 100 MG/10 ML VIAL IV SCH ×2 (09:36→16:26)
[2018-04-24] MEDS: POTASSIUM CHLORIDE 20 MEQ TABLET PO SCH (09:36)
[2018-04-24] MEDS: DOCUSATE SODIUM 100 MG CAPSULE PO SCH ×2 (09:36→19:56)
[2018-04-24] MEDS: FLUCONAZOLE 100 MG TABLET PO SCH (09:36)
--- NOTE | 2018-04-24 12:15 | Internal Med Progress Note ---
Medical - PN: Subj Patient information: Note initiated : 04/24/18 at 12:12 pm Service Date, if different from initiated Date: [] Patient: Branden Espinosa 57 y/o M admitted on 04/20/18 for Worsening Renal Failure. Chief Complaint: [] Interval history: Mr. Espinosa is a 57 year old Male with history of morbid obesity, bedbound, severe pulmonary hypertension, congestive heart failure, chronic kidney disease atrial fibrillation. The patient presents to the hospital for worsening shortness of breath and increased edema in his body. The patient was discharged from this facility I believe on 20 March. He was transferred to [facility] for placement of a pacemaker. His admission in March was also for increased swelling, worsening renal function and was treated as congestive heart failure. At that point in time the patient was supratherapeutic and his INR as well as supratherapeutic and his digoxin level. Digoxin was held. The patient eventually was transferred to a higher center for placement of a pacemaker because of significant cardiac pauses. He underwent the pacemaker placement and was discharged from the facility. According to the patient since his discharge from the tertiary facility the patient has been having increased swelling in his lower extremities. This has been progressively getting worse, this has been accompanied by shortness of breath. He denies any other acute complaints or concerns. He denies taking in too much fluid he is watching his salt intake and is not taking any NSAIDs. The patient denies any chest pain denies any dizziness he does have intermittent changes in vision. The patient was being followed by nephrology in the outpatient, his dose of diuretics were being changed however despite this the patient's edema kept getting worse and therefore the patient was asked to come to the emergency room for evaluation. In the ER the patient was noted to have worsening renal failure, elevated bnp, significant edema, cxr was clear, showed resolving pna, ekg showed poor voltate , afib, 04/21 Patient seen and examined, overnight was not able to sleep well, there was some malfunction in the bariatric bed which kept beeping. Patient tired this morning. He has extensive erythema on his back possible fungal rash. Patient has not had a bowel movement for the last few days wanting a stool softener. He notes his shortness of breath is somewhat better but still not able to lie flat, denies any chest pain nausea vomiting. Appreciate nephrology input. Patient remains on IV Lasix, negative balance since yesterday,-1550 04/22 Pt seen examined, tired today, did not sleep well, bp on the lower end of normal , neg 1500 yesterday Pt has no other complaints. had bm this after noon. nephrology following. labs stable. 04/23 Pt seen examined, slept well last night, denies any acute complaints, noted some chest discomfort yesterday, no chest tightness or pressure, just a flicker, Pt is already anticoagulated with coumadin and INR is therapeutic The patient Creat is trending down, creat is 2.2, He is diuresing well, Neg 5L since admission Plan to use chlorothiazide this afternoon, and then followed by alecia to see if we can improve diuresis 04/24 Pt seen examined, no acute overnight events, [place] [id number] since admission, still has significant edema Start on metolozone 5mg daily, continue IV lasix 80 bid add acetazolamide one dose today for worsening metabolic alkalosis. BP stable HR stable Dig level 1.2-1.3, pt has pacemaker, intermittently pacing on tele inr therapeutic PT feels cpap is not giving enough pressure, even at 14mmhg, have spoken with RT to look into the device. Pertinent ROS: Denies headache, dizziness Denies chest pain, palpitations Denies cough or shortness of breath Denies abdominal pain,Pt had some nausea nad vomiting yesterday, resolved today. - Constitutional Vitals: Vital Signs Temp Pulse Resp BP Pulse Ox 98.2 F 110 H 18 106/83 97 04/24/18 11:43 04/23/18 20:19 04/24/18 11:43 04/24/18 11:43 04/24/18 11:43 Period Temp Pulse Resp BP Sys/Andujar Pulse Ox Last 24 Hr 97.1 F-98.2 F 110-112 16-20 106-127/65-86 90-98 Intake and Output 04/23/18 04/24/18 04/24/18 21:59 05:59 13:59 Intake Total 550 / 550 200 / 200 Output Total 2525 / 2525 1200 / 1200 1350 / 1350 Balance -1974 / -1974 -1000 / -1000 -1350 / -1350 Weight 470 lb Intake & Output: Intake & Output 0604/24/18 04/24/18 21:59 05:59 13:59 Intake Total 550 / 550 200 / 200 Output Total 2525 / 2525 1200 / 1200 1350 / 1350 Balance -1974 / -1974 -999 / -999 -1350 / -1350 Weight 470 lb Intake: Oral 550 / 550 200 / 200 Output: Void Amount 2525 / 2525 1200 / 1200 1350 / 1350 # of times incontinent of urine 0 / 0 Other: Meal Dinner Percent of Meal Consumed 25% Feeding Ability Assist with Tray Set Up # Voids 1 2 Exam: Constitutional; Afebrile, cooperative, alert, not in distress. Eyes- No icterus, , No periorbital swelling Ears- Ext ear normal, hearing normal to conversation. Neck- Midline trachea, supple Respiratory system: Air Entry equal on both sides, No crackles or wheezing, no rhonchi. CVS- Rate rhythm irregular rhythm, s1,s2 heard Abdomen- Soft nontender abdomen, no organomegaly, no tenderness, no guarding or rigidity, large pannus. ELECTROTYPE CASTER- AOOx3, moving all extremities, no gross focal deficit noted. Edema improved but still signfcant. Medical - PN: Obj Da - Labs CBC & Chem 7: 04/24/18 04:00 04/24/18 04:00 Labs: Abnormal Lab Results 04/24/18 04/24/18 04/24/18 04:00 04:00 04:00 WBC 4.3 L RBC 2.82 L Hgb 9.6 L Hct 29.2 L MCV 103.7 H MCH 34.2 H RDW 17.4 H Plt Count 125 L [place] % (Auto) Eos % (Auto) 7.1 H Lymph # (Auto) 0.8 L PT 23.4 H INR 2.1 H Chloride 91 L Carbon Dioxide 39 H Anion Gap BUN 49 H Creatinine 2.1 H Uric Acid 16.7 H Iron TIBC Direct Bilirubin 0.4 H Albumin 2.9 L Globulin 5.2 H Albumin/Globulin Ratio 0.6 L PTH Intact 04/23/18 04/23/18 04/23/18 04:00 04:00 04:00 WBC 4.2 L RBC 2.64 L Hgb 9.0 L Hct 27.0 L MCV 102.4 H MCH 34.2 H RDW 17.1 H Plt Count 128 L [place] % (Auto) 12.7 H Eos % (Auto) Lymph # (Auto) 0.8 L PT 25.5 H INR 2.3 H Chloride 95 L Carbon Dioxide 37 H Anion Gap 7.0 L BUN 50 H Creatinine 2.2 H Uric Acid 16.6 H Iron TIBC Direct Bilirubin 0.4 H Albumin 2.8 L Globulin 4.6 H Albumin/Globulin Ratio 0.6 L PTH Intact 04/22/18 04/22/18 04/22/18 04:00 04:00 04:00 WBC RBC Hgb Hct MCV MCH RDW Plt Count [place] % (Auto) Eos % (Auto) Lymph # (Auto) PT 24.8 H INR 2.2 H Chloride 94 L Carbon Dioxide 33 H Anion Gap BUN 52 H Creatinine 2.5 H Uric Acid 16.9 H Iron 45 L TIBC 159 L Direct Bilirubin 0.4 H Albumin 3.1 L Globulin 5.1 H Albumin/Globulin Ratio 0.6 L PTH Intact 98.7 H 04/22/18 04:00 WBC RBC 2.84 L Hgb 9.7 L Hct 29.3 L MCV 103.2 H MCH 34.1 H RDW 16.7 H Plt Count [place] % (Auto) 12.2 H Eos % (Auto) Lymph # (Auto) 0.9 L PT INR Chloride Carbon Dioxide Anion Gap BUN Creatinine Uric Acid Iron TIBC Direct Bilirubin Albumin Globulin Albumin/Globulin Ratio PTH Intact Meds: Medications Acetaminophen (Tylenol) 650 mg PO Q6HP PRN PRN Reason: PAIN/FEVER > 101 Hydrocodone Bitart/Acetaminophen ([place] 10/325mg) 2 tab PO Q6HP PRN PRN Reason: Pain Last Admin: 04/24/18 09:09 Dose: 2 tab Digoxin (Lanoxin) 125 mcg PO DAILY@1400 [facility] Last Admin: 04/23/18 14:14 Dose: 125 mcg Docusate Sodium (Colace) 100 mg PO BID [facility] Last Admin: 04/24/18 09:36 Dose: 100 mg Fluconazole (Diflucan) 200 mg PO DAILY [facility] Stop: 04/28/18 12:25 Last Admin: 04/24/18 09:36 Dose: 200 mg Furosemide (Lasix) 80 mg IV BIDD [facility] Last Admin: 04/24/18 09:36 Dose: 80 mg Heparin Sodium (Porcine) (Heparin Flush) 2 ml IV Q12 [facility] Last Admin: 04/24/18 09:36 Dose: 2 ml Metolazone (Zaroxolyn) 5 mg PO DAILY@0730 [facility] Last Admin: 04/24/18 08:23 Dose: 5 mg Naloxone HCl (Narcan) 0.1 mg IV Q2MIN PRN PRN Reason: Opiate Reversal Ondansetron HCl (Zofran Odt) 4 mg SL Q4HP PRN PRN Reason: Nausea And Vomiting Last Admin: 04/23/18 18:26 Dose: 4 mg Polyethylene Glycol (Miralax) 17 gm PO DAILY PRN PRN Reason: Constipation [facility] Admin: 04/24/18 09:36 Dose: 20 meq Sodium Chloride (Saline Flush) 10 ml IV Q8 [facility] Last Admin: 04/24/18 06:18 Dose: 10 ml Sodium Chloride (Saline Flush) 10 ml IV UD PRN PRN Reason: FLUSH Last Admin: 04/21/18 17:15 Dose: 10 ml Sodium Chloride (Saline Flush) 10 ml IV Q12 [facility] Last Admin: 04/24/18 09:37 Dose: 10 ml Warfarin Sodium (Coumadin Per Pharmacy) 1 order PO UD [facility] Medical - PN: A/P - Time Spent With Patient Total time spent is greater than 50% in coordination of care (as documented) at patient's floor/unit and/or counseling patient: - Narrative A/P Narrative: A/P Congestive Heart failure/ Acute cor pulmonale- [place] [id number] since admission, start on metolazone 5mg AM, and give acetazolamide today Acute on chr renal failure/ Cardio renal syndrome- cret is 2.1, trending down slowly, nephrology following. Atrial fibrillation, s/p pacemaker- rate better controlled, on digoxin, prn IV metoprolol. on Coumadin with therapeutic INR. dig level is 1.3 today, change dosing to every other day for dig. Metoprolol prn for rate control. Obstructive sleep apnea- on cpap at night. RT to evaluate if cpap functiong correctly, may need a repeat doug to evaluate new pressure settings. Bed bound status / Morbid obesity- will need to loose weight or else his prognosis is very poor half-way, his BMI is 71 Chronic respiratory failure- oxygen to keep osat > 90. Osteoarthritis.- prn pain meds. chr wounds- wound cares following, no e/o sepsis. acute infection Lymphdedema- on diuresis, will need wt loss Pneumonia - clinically stable, completed course, d/c abx DVT on coumadin with therapeutic INR FUll code CArdiac diet Overall has poor prognosis, has explained to him that based on the last echo he had severe pulm htn. Medical - PN: Qual - VTE Deep Vein Thrombosis/Pulmonary Embolism Present on Admission: No
[2018-04-24] MEDS ORDERED: WARFARIN 5 MG TABLET PO ONE (14:00)
[2018-04-24] MEDS: ONDANSETRON ODT 4 MG TABLET SL PRN (18:19)
[2018-04-25 05:09] LABS: Basophils # (Auto) 0 K/mcL (0.0-0.3); Basophils % (Auto) 0.3 % (0.0-2.0); Eosinophils # (Auto) 0.3 K/mcL (0.0-0.7); Eosinophils % (Auto) 6.2 % (0.0-7.0); Granulocytes % (Auto) 64.4 % (38.0-78.0); Lymphocytes # (Auto) 0.8 K/mcL (1.5-4.8); Lymphocytes % (Auto) 17.4 % (15.5-49.0); Mean Cell Volume 103.8 fL (80.0-100.0); Mean Corpuscular Hemoglobin 34.3 pg (26.0-34.0); Monocytes # (Auto) 0.5 K/mcL (0.1-0.9); Monocytes % (Auto) 11.7 % (1.0-12.0); Platelet Count 123 K/mcL (140-440); RBC 2.74 M/mcL (4.50-5.90); Red Cell Distribution Width 17.4 % (11.5-14.5)
[2018-04-25 05:37] LABS: ALT/SGPT 7 U/l (0-40); Albumin 3.1 gm/dL (3.2-5.2); Albumin/Globulin Ratio 0.6 (1.0-2.3); Alkaline Phosphatase 102 U/L (39-117); Bilirubin,Direct 0.4 mg/dL (0.0-0.3); Blood Urea Nitrogen 47 mg/dl (6-20); Gamma Glutamyl Transpeptidase 40 U/L (8-61); Uric Acid 16.2 mg/dL (2.5-8.0)
[2018-04-25] MEDS: 0.9 % SODIUM CHLORIDE 10 ML SYRINGE IV SCH ×3 (05:42→20:25)
--- NOTE | 2018-04-25 06:10 | Nephrology Progress Note ---
Subjective Patient information: Note initiated : 04/25/18 at 6:08 am Branden Espinosa is a [id number] male with chronic kidney disease stage 3, chronic anemia associated with chronic kidney disease, generalized edema, hypertension, morbid obesity, cor pulmonale, chronic atrial fibrillation on Coumadin (Echo on 12/03/17: LVEF 48%, mild global hypokinesis, right ventricle severely dilated, severe pulmonary hypertension), admitted on 04/20/18 for acute on chronic renal failure with fluid overload. Chief Complaint: Worsening leg edema Principal diagnosis: Acute on chronic renal failure with fluid overload Interval history: Tolerating diuresis Pertinent ROS: Weakness Shortness of breath Edema Wounds Objective - Vital Signs Vital signs: Vital Signs Temp Pulse Pulse Resp BP Pulse Ox 04/25/18 04:00 98.0 F 16 112/63 97 04/25/18 00:00 98.2 F 16 113/72 98 04/24/18 23:27 102 H 16 93 04/24/18 20:00 98.0 F 16 127/68 95 04/24/18 19:01 105 H 95 04/24/18 15:48 98.1 F 18 101/59 100 04/24/18 11:43 98.2 F 18 106/83 97 04/24/18 08:00 97.8 F 18 122/86 94 Intake and Output 04/24/18 04/25/18 04/25/18 21:59 05:59 13:59 Intake Total 640 / 640 150 / 150 Output Total 1275 / 1275 1075 / 1075 Balance -635 / -635 -925 / -925 Intake: Oral 640 / 640 150 / 150 Output: Void Amount 1275 / 1275 1075 / 1075 # of times incontinent of urine 0 / 0 Other: Meal Dinner Percent of Meal Consumed 90 Feeding Ability Assist with Tray Set Up # Voids 1 Intake & Output: Intake & Output 04/24/18 04/25/18 04/25/18 21:59 05:59 13:59 Intake Total 640 / 640 150 / 150 Output Total 1275 / 1275 1075 / 1075 Balance -635 / -635 -925 / -925 Intake: Oral 640 / 640 150 / 150 Output: Void Amount 1275 / 1275 1075 / 1075 # of times incontinent of urine 0 / 0 Other: Meal Dinner Percent of Meal Consumed 90 Feeding Ability Assist with Tray Set Up # Voids 1 - General Appearance General appearance: obese, chronically ill EENT: mucous membranes dry Neck: supple Respiratory: clear Cardiology: edema Gastrointestinal: no tenderness Integumentary: warm and dry Neurologic: no focal deficit, alert and oriented x3 Musculoskeletal: no deformities Psychiatric: mood/affect appropriate, cooperative - Lab 04/25/18 04:00 04/25/18 04:00 Most recent lab results Calcium 9.1 mg/dl (8.6-10.4) 04/25/18 04:00 Phosphorus 2.7 mg/dL (2.7-4.5) 04/25/18 04:00 Magnesium 1.9 mg/dL (1.6-2.5) 04/25/18 04:00 Assessment and Plan (1) Acute on chronic kidney failure New work up: Renal US on 12/31/17: Slightly echogenic renal parenchyma bilaterally which may be seen with chronic medical renal disease. Kidneys are otherwise anatomically normal. Labs on 04/20/18: Urinalysis yellow, hazy, pH 5.0, SG 1.013, protein negative , occult blood negative, random protein/creatinine ratio 240 mg/g creatinine and random urine sodium 49. Labs on 04/22/18: iPTH 98.7 Previous work up: Renal US on 12/31/17: Slightly echogenic renal parenchyma bilaterally which may be seen with chronic medical renal disease. Kidneys are otherwise anatomically normal. Labs on 12/31/17: Urinalysis yellow, hazy, pH 6.0, SG 1.012, protein negative , occult blood 0.03, no cellular casts, random protein/creatinine ratio 230 mg/ g creatinine and random microalbumin/creatinine ratio 19 mg/g creatinine. Progress: Urine output: 3700 ml Creatinine down to 1.9 Metabolic alkalosis (CO2 41), worsening Fluid overload, improving Status: Acute Priority: Medium Qualifiers: Acute renal failure type: unspecified Chronic kidney disease stage: stage 3 (moderate) Qualified Code(s): N17.9 - Acute kidney failure, unspecified; N18.3 - Chronic kidney disease, stage 3 (moderate) (2) Other fluid overload Fluid overload associated with chronic cor pulmonale (Echo on 12/03/17: LVEF 48% , mild global hypokinesis, right ventricle severely dilated, severe pulmonary hypertension). I recommended adequate treatment of obstructive sleep apnea. He stated he is not using his new CPAP because it turns of for air leak. He is still using the old one but does not think pressures are enough. I recommended calling the service for evaluation. Status: Chronic Priority: Medium
[2018-04-25] MEDS ORDERED: acetaZOLAMIDE 250 MG TABLET PO ONE (06:16)
[2018-04-25] MEDS ORDERED: acetaZOLAMIDE SOD 500 MG VIAL IV ONE (07:15)
[2018-04-25] MEDS: METOLAZONE 2.5 MG TABLET PO SCH (07:34)
[2018-04-25] MEDS ORDERED: BUMETANIDE 1 MG TABLET PO SCH (08:00)
[2018-04-25] MEDS: POTASSIUM CHLORIDE 20 MEQ TABLET PO SCH (08:11)
[2018-04-25] MEDS: DOCUSATE SODIUM 100 MG CAPSULE PO SCH ×2 (08:11→20:24)
[2018-04-25] MEDS: FLUCONAZOLE 100 MG TABLET PO SCH (08:11)
[2018-04-25] MEDS: HYDROcodone/APAP 10/325MG TABLET PO PRN ×2 (08:27→14:01)
--- NOTE | 2018-04-25 09:27 | Internal Med Progress Note ---
Medical - PN: Subj Patient information: Note initiated : 04/25/18 at 9:23 am Service Date, if different from initiated Date: [] Patient: Branden Espinosa 57 y/o M admitted on 04/20/18 for Worsening Renal Failure. Chief Complaint: [] Interval history: Mr. Espinosa is a 57 year old Male with history of morbid obesity, bedbound, severe pulmonary hypertension, congestive heart failure, chronic kidney disease atrial fibrillation. The patient presents to the hospital for worsening shortness of breath and increased edema in his body. The patient was discharged from this facility I believe on 20 March. He was transferred to [facility] for placement of a pacemaker. His admission in March was also for increased swelling, worsening renal function and was treated as congestive heart failure. At that point in time the patient was supratherapeutic and his INR as well as supratherapeutic and his digoxin level. Digoxin was held. The patient eventually was transferred to a higher center for placement of a pacemaker because of significant cardiac pauses. He underwent the pacemaker placement and was discharged from the facility. According to the patient since his discharge from the tertiary facility the patient has been having increased swelling in his lower extremities. This has been progressively getting worse, this has been accompanied by shortness of breath. He denies any other acute complaints or concerns. He denies taking in too much fluid he is watching his salt intake and is not taking any NSAIDs. The patient denies any chest pain denies any dizziness he does have intermittent changes in vision. The patient was being followed by nephrology in the outpatient, his dose of diuretics were being changed however despite this the patient's edema kept getting worse and therefore the patient was asked to come to the emergency room for evaluation. In the ER the patient was noted to have worsening renal failure, elevated bnp, significant edema, cxr was clear, showed resolving pna, ekg showed poor voltate , afib, 04/21 Patient seen and examined, overnight was not able to sleep well, there was some malfunction in the bariatric bed which kept beeping. Patient tired this morning. He has extensive erythema on his back possible fungal rash. Patient has not had a bowel movement for the last few days wanting a stool softener. He notes his shortness of breath is somewhat better but still not able to lie flat, denies any chest pain nausea vomiting. Appreciate nephrology input. Patient remains on IV Lasix, negative balance since yesterday,-1550 04/22 Pt seen examined, tired today, did not sleep well, bp on the lower end of normal , neg 1500 yesterday Pt has no other complaints. had bm this after noon. nephrology following. labs stable. 04/23 Pt seen examined, slept well last night, denies any acute complaints, noted some chest discomfort yesterday, no chest tightness or pressure, just a flicker, Pt is already anticoagulated with coumadin and INR is therapeutic The patient Creat is trending down, creat is 2.2, He is diuresing well, Neg 5L since admission Plan to use chlorothiazide this afternoon, and then followed by lasix to see if we can improve diuresis 04/24 Pt seen examined, no acute overnight events, [place] [id number] since admission, still has significant edema Start on metolozone 5mg daily, continue IV lasix 80 bid add acetazolamide one dose today for worsening metabolic alkalosis. BP stable HR stable Dig level 1.2-1.3, pt has pacemaker, intermittently pacing on tele inr therapeutic PT feels cpap is not giving enough pressure, even at 14mmhg, have spoken with RT to look into the device. 04/24 [place] [id number] since admission, pt feels ok, still has significant dependent edema, I feel we can switch him to oral meds and see if he continues to diurese on same d/c iv lasix, start on po bumex, and metolozone 5mg before bumex and monitor urine output The patient bed was not zeroed in, and therefore the daily weights are not accurate, I am not using daily weight to monitor treatment at this time. Pertinent ROS: Denies headache, dizziness Denies chest pain, palpitations Denies cough or shortness of breath Denies abdominal pain, nausea or vomiting. - Constitutional Vitals: Vital Signs Temp Pulse Resp BP Pulse Ox 98.0 F 102 H 16 112/63 97 04/25/18 04:00 04/24/18 23:27 04/25/18 04:00 04/25/18 04:00 04/25/18 04:00 Period Temp Pulse Resp BP Sys/Andujar Pulse Ox Last 24 Hr 98.0 F-98.2 F 102-105 - 101-127/59-83 93-100 Intake and Output 04/24/18 04/25/18 04/25/18 21:59 05:59 13:59 Intake Total 640 / 640 150 / 150 Output Total 1275 / 1275 1075 / 1075 Balance -635 / -635 -925 / -925 Intake & Output: Intake & Output 04/24/18 04/25/18 04/25/18 21:59 05:59 13:59 Intake Total 640 / 640 150 / 150 Output Total 1275 / 1275 1075 / 1075 Balance -635 / -635 -925 / -925 Intake: Oral 640 / 640 150 / 150 Output: Void Amount 1275 / 1275 1075 / 1075 # of times incontinent of urine 0 / 0 Other: Meal Dinner Percent of Meal Consumed 90 Feeding Ability Assist with Tray Set Up # Voids 1 Exam: Constitutional; Afebrile, cooperative, alert, not in distress. Eyes- No icterus, , No periorbital swelling Ears- Ext ear normal, hearing normal to conversation. Neck- Midline trachea, supple Respiratory system: Air Entry equal on both sides, No crackles or wheezing, no rhonchi. CVS- Rate rhythm regular, S1,S2 heard, no gallop, no rub. Abdomen- Soft nontender abdomen, no organomegaly, no tenderness, no guarding or rigidity, large pannus. 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 Edema improved, legs much better, still has significant edema in the dependent region, Medical - PN: Obj Da - Labs CBC & Chem 7: 04/25/18 04:00 04/25/18 04:00 Labs: Abnormal Lab Results 04/25/18 04/25/18 04/25/18 04:00 04:00 04:00 WBC 4.3 L RBC 2.74 L Hgb 9.4 L Hct 28.4 L MCV 103.8 H MCH 34.3 H RDW 17.4 H Plt Count 123 L [place] % (Auto) Eos % (Auto) Lymph # (Auto) 0.8 L PT 25.6 H INR 2.3 H Chloride 93 L Carbon Dioxide 41 H* Anion Gap 7.0 L BUN 47 H Creatinine 1.9 H Uric Acid 16.2 H Direct Bilirubin 0.4 H Albumin 3.1 L Globulin 4.8 H Albumin/Globulin Ratio 0.6 L 04/24/18 04/24/18 04/24/18 04:00 04:00 04:00 WBC 4.3 L RBC 2.82 L Hgb 9.6 L Hct 29.2 L MCV 103.7 H MCH 34.2 H RDW 17.4 H Plt Count 125 L [place] % (Auto) Eos % (Auto) 7.1 H Lymph # (Auto) 0.8 L PT 23.4 H INR 2.1 H Chloride 91 L Carbon Dioxide 39 H Anion Gap BUN 49 H Creatinine 2.1 H Uric Acid 16.7 H Direct Bilirubin 0.4 H Albumin 2.9 L Globulin 5.2 H Albumin/Globulin Ratio 0.6 L 04/23/18 04/23/18 04/23/18 04:00 04:00 04:00 WBC 4.2 L RBC 2.64 L Hgb 9.0 L Hct 27.0 L MCV 102.4 H MCH 34.2 H RDW 17.1 H Plt Count 128 L [place] % (Auto) 12.7 H Eos % (Auto) Lymph # (Auto) 0.8 L PT 25.5 H INR 2.3 H Chloride 95 L Carbon Dioxide 37 H Anion Gap 7.0 L BUN 50 H Creatinine 2.2 H Uric Acid 16.6 H Direct Bilirubin 0.4 H Albumin 2.8 L Globulin 4.6 H Albumin/Globulin Ratio 0.6 L Meds: Medications Acetaminophen (Tylenol) 650 mg PO Q6HP PRN PRN Reason: PAIN/FEVER > 101 Hydrocodone Bitart/Acetaminophen (Leonardo 10/325mg) 2 tab PO Q6HP PRN PRN Reason: Pain Last Admin: 04/25/18 08:27 Dose: 2 tab Bumetanide (Bumex) 2 mg PO BIDD [facility] Last Admin: 04/25/18 08:10 Dose: 2 mg Digoxin (Lanoxin) 125 mcg PO Q48H [facility] Docusate Sodium (Colace) 100 mg PO BID [facility] Last Admin: 04/25/18 08:11 Dose: 100 mg Fluconazole (Diflucan) 200 mg PO DAILY [facility] Stop: 04/28/18 12:25 Last Admin: 04/25/18 08:11 Dose: 200 mg Heparin Sodium (Porcine) (Heparin Flush) 2 ml IV Q12 [facility] Last Admin: 04/25/18 08:12 Dose: 2 ml Metolazone (Zaroxolyn) 5 mg PO DAILY@0730 [facility] Last Admin: 04/25/18 07:34 Dose: 5 mg Naloxone HCl (Narcan) 0.1 mg IV Q2MIN PRN PRN Reason: Opiate Reversal Ondansetron HCl (Zofran Odt) 4 mg SL Q4HP PRN PRN Reason: Nausea And Vomiting Last Admin: 04/24/18 18:19 Dose: 4 mg Polyethylene Glycol (Miralax) 17 gm PO DAILY PRN PRN Reason: Constipation Potassium Chloride (Kdur) 20 meq PO QAMCC [facility] Last Admin: 04/25/18 08:11 Dose: 20 meq Sodium Chloride (Saline Flush) 10 ml IV Q8 [facility] Last Admin: 04/25/18 05:42 Dose: 10 ml Sodium Chloride (Saline Flush) 10 ml IV UD PRN PRN Reason: FLUSH Last Admin: 04/21/18 17:15 Dose: 10 ml Warfarin Sodium (Coumadin Per Pharmacy) 1 order PO UD [facility] Medical - PN: A/P - Time Spent With Patient Total time spent is greater than 50% in coordination of care (as documented) at patient's floor/unit and/or counseling patient: - Narrative A/P Narrative: A/P Congestive Heart failure/ Acute cor pulmonale- d/c lasix, start on PO metolozone , and PO bumex 2mg daily, IV acetazolamide (oral formulary not available) for metabolic alkalosis. Monitor urine output. Acute on chr renal failure/ Cardio renal syndrome- creat is 1.9, trending down. Atrial fibrillation, s/p pacemaker- rate better controlled, on digoxin, prn IV metoprolol. on Coumadin with therapeutic INR. dig level is 0.9 today, on po digoxin 0.125 every other day, PRn IV metoprolol for rate control, HTN- was on lisinopril and carvedilol which has been held, would want bp to be on the higher end to allow diuresis. Obstructive sleep apnea- on cpap at night. RT to evaluate if cpap functiong correctly, may need a repeat doug to evaluate new pressure settings. Bed bound status / Morbid obesity- will need to loose weight or else his prognosis is very poor usp, his BMI is 71 Chronic respiratory failure- oxygen to keep osat > 90. Osteoarthritis.- prn pain meds. chr wounds- wound cares following, no e/o sepsis. acute infection Lymphdedema- on diuresis, will need wt loss Pneumonia - clinically stable, completed course, d/c abx DVT on coumadin with therapeutic INR FUll code CArdiac diet Overall has poor prognosis, has explained to him that based on the last echo he had severe pulm htn. D/c plan is in flux due to his weight, and local NH not having bariatric equipment. Case management working on alternative discharge planning. I dont think he c an be discharged home at this time. Medical - PN: Qual - VTE Deep Vein Thrombosis/Pulmonary Embolism Present on Admission: No
[2018-04-25] MEDS ORDERED: NALOXONE HCL 0.4 MG/ML VIAL IV PRN (11:50)
[2018-04-25] MEDS ORDERED: ACETAMINOPHEN 325 MG TABLET PO PRN (11:50)
[2018-04-25] MEDS: POLYETHYLENE GLYCOL 3350 17 GM PACKET PO PRN (12:55)
[2018-04-25] MEDS ORDERED: DIGOXIN 125 MCG TABLET PO SCH (14:00)
[2018-04-25] MEDS: DIGOXIN 125 MCG TABLET PO SCH (14:02)
[2018-04-25 15:39] LABS: Albumin PEP 2.81 gm/dl (3.1-4.7)
[2018-04-25] MEDS: BUMETANIDE 1 MG TABLET PO SCH (15:46)
--- NOTE | 2018-04-25 16:44 | General Surgery Progress Note ---
Subjective Narrative: Note initiated : 04/25/18 at 4:42 pm Service Date, if different from initiated Date: [] Patient: Branden Espinosa 57 y/o M admitted on 04/20/18 for Worsening Renal Failure. Chief Complaint: [] No interval changes since last seen. Wound care needs reviewed with Delicia FRANKLIN. Objective Temp Pulse Resp BP Pulse Ox 97.8 F 102 H 20 116/78 96 04/25/18 15:57 04/24/18 23:27 04/25/18 15:57 04/25/18 15:57 04/25/18 15:57 AVSS. NO changes FELI and wounds. ( Back and Right lower leg. ) - Additional Data Intake & Output - Last 24 hours: Intake & Output 04/23/18 04/24/18 04/25/18 04/26/18 05:59 05:59 05:59 05:59 Intake Total 620 / 620 930 / 930 790 / 790 260 / 260 Output Total 3326 / 3326 4750 / 4750 3700 / 3700 1025 / 1025 Balance -2706 / -2706 -3820 / -3820 -2910 / -2910 -765 / -765 Weight 470 lb 470 lb - Labs 04/25/18 04:00 04/25/18 04:00 Diabetes panel 04/25/18 Range/Units 04:00 Sodium 141 (133-145) mmol/L Potassium 3.9 (3.3-5.1) mmol/L Chloride 93 L (96-108) mmol/L Carbon Dioxide 41 H* (22-30) mmol/L BUN 47 H (6-20) mg/dl Creatinine 1.9 H (0.7-1.2) mg/dl Glucose 89 (70-105) mg/dL Calcium 9.1 (8.6-10.4) mg/dl AST 22 (0-37) U/l ALT 7 (0-40) U/l Alkaline Phosphatase 102 (39-117) U/L Total Protein 7.9 (5.9-8.4) gm/dL Albumin 3.1 L (3.2-5.2) gm/dL Triglycerides 96 (<150) mg/dl Calcium panel 04/25/18 Range/Units 04:00 Calcium 9.1 (8.6-10.4) mg/dl Phosphorus 2.7 (2.7-4.5) mg/dL Albumin 3.1 L (3.2-5.2) gm/dL Pituitary panel 04/25/18 Range/Units 04:00 Sodium 141 (133-145) mmol/L Potassium 3.9 (3.3-5.1) mmol/L Chloride 93 L (96-108) mmol/L Carbon Dioxide 41 H* (22-30) mmol/L BUN 47 H (6-20) mg/dl Creatinine 1.9 H (0.7-1.2) mg/dl Glucose 89 (70-105) mg/dL Calcium 9.1 (8.6-10.4) mg/dl Adrenal panel 04/25/18 Range/Units 04:00 Sodium 141 (133-145) mmol/L Potassium 3.9 (3.3-5.1) mmol/L Chloride 93 L (96-108) mmol/L Carbon Dioxide 41 H* (22-30) mmol/L BUN 47 H (6-20) mg/dl Creatinine 1.9 H (0.7-1.2) mg/dl Glucose 89 (70-105) mg/dL Calcium 9.1 (8.6-10.4) mg/dl Total Bilirubin 0.9 (0.0-1.0) mg/dL AST 22 (0-37) U/l ALT 7 (0-40) U/l Alkaline Phosphatase 102 (39-117) U/L Total Protein 7.9 (5.9-8.4) gm/dL Albumin 3.1 L (3.2-5.2) gm/dL Assessment and Plan - Time Spent With Patient Total time spent is greater than 50% in coordination of care (as documented) at patient's floor/unit and/or counseling patient: Assessment: NO interval changes in wounds back and Right leg. Plan: Continue current treatment. Will see wound tomorrow. less than 15 minutes
[2018-04-26] MEDS: 0.9 % SODIUM CHLORIDE 10 ML SYRINGE IV SCH ×5 (05:29→21:08)
[2018-04-26] MEDS: HYDROcodone/APAP 10/325MG TABLET PO PRN ×2 (05:37→13:37)
[2018-04-26 05:54] LABS: Basophils # (Auto) 0 K/mcL (0.0-0.3); Basophils % (Auto) 0.3 % (0.0-2.0); Eosinophils # (Auto) 0.3 K/mcL (0.0-0.7); Eosinophils % (Auto) 6.7 % (0.0-7.0); Granulocytes % (Auto) 65.9 % (38.0-78.0); Lymphocytes # (Auto) 0.8 K/mcL (1.5-4.8); Lymphocytes % (Auto) 16.1 % (15.5-49.0); Mean Cell Volume 103.8 fL (80.0-100.0); Mean Corpuscular HGB Conc 32.6 g/dL (31.0-36.0); Mean Corpuscular Hemoglobin 33.9 pg (26.0-34.0); Monocytes # (Auto) 0.5 K/mcL (0.1-0.9); Platelet Count 127 K/mcL (140-440); RBC 2.86 M/mcL (4.50-5.90); Red Cell Distribution Width 16.9 % (11.5-14.5)
[2018-04-26 06:53] LABS: ALT/SGPT 6 U/l (0-40); Albumin/Globulin Ratio 0.6 (1.0-2.3); Alkaline Phosphatase 104 U/L (39-117); Bilirubin,Direct 0.4 mg/dL (0.0-0.3); Blood Urea Nitrogen 47 mg/dl (6-20); Gamma Glutamyl Transpeptidase 43 U/L (8-61)
--- NOTE | 2018-04-26 07:00 | Nephrology Progress Note ---
Subjective Patient information: Note initiated : 04/26/18 at 6:58 am Branden Espinosa is a [id number] male with chronic kidney disease stage 3, chronic anemia associated with chronic kidney disease, generalized edema, hypertension, morbid obesity, cor pulmonale, chronic atrial fibrillation on Coumadin (Echo on 12/03/17: LVEF 48%, mild global hypokinesis, right ventricle severely dilated, severe pulmonary hypertension), admitted on 04/20/18 for acute on chronic renal failure with fluid overload. Chief Complaint: Worsening leg edema Principal diagnosis: Acute on chronic renal failure with fluid overload Interval history: Tolerated diuresis Pertinent ROS: Weakness Shortness of breath Edema Wounds Objective - Vital Signs Vital signs: Vital Signs Temp Pulse Resp BP Pulse Ox 04/26/18 04:00 97.6 F 104 H 16 102/63 90 04/25/18 23:22 97.6 F 78 18 102/68 95 04/25/18 19:03 97.7 F 16 98/64 98 04/25/18 15:57 97.8 F 20 116/78 96 04/25/18 11:20 98 F 20 124/82 96 04/25/18 08:00 97.6 F 18 128/74 93 Intake and Output 04/25/18 04/26/18 04/26/18 21:59 05:59 13:59 Intake Total 360 / 360 Output Total 675 / 675 650 / 650 Balance -675 / -675 -290 / -290 Intake: Oral 360 / 360 Output: Urine Catheter Amount 200 / 200 Void Amount 475 / 475 650 / 650 # of times incontinent of urine 0 / 0 Other: Meal Dinner Percent of Meal Consumed 50% Feeding Ability Independent # Voids 2 1 Intake & Output: Intake & Output 04/25/18 04/26/18 04/26/18 21:59 05:59 13:59 Intake Total 360 / 360 Output Total 675 / 675 650 / 650 Balance -675 / -675 -290 / -290 Intake: Oral 360 / 360 Output: Urine Catheter Amount 200 / 200 Void Amount 475 / 475 650 / 650 # of times incontinent of urine 0 / 0 Other: Meal Dinner Percent of Meal Consumed 50% Feeding Ability Independent # Voids 2 1 - General Appearance General appearance: obese, chronically ill EENT: mucous membranes dry Neck: supple Respiratory: clear Cardiology: edema Gastrointestinal: no tenderness Integumentary: hyperpigmentation, chronic venous stasis Neurologic: no focal deficit, alert and oriented x3 Musculoskeletal: no deformities Psychiatric: mood/affect appropriate, cooperative - Lab 04/26/18 03:33 04/26/18 03:33 Most recent lab results Calcium 9.2 mg/dl (8.6-10.4) 04/26/18 03:33 Phosphorus 2.6 mg/dL (2.7-4.5) L 04/26/18 03:33 Magnesium 1.9 mg/dL (1.6-2.5) 04/26/18 03:33 Assessment and Plan (1) Acute on chronic kidney failure New work up: Renal US on 12/31/17: Slightly echogenic renal parenchyma bilaterally which may be seen with chronic medical renal disease. Kidneys are otherwise anatomically normal. Labs on 04/20/18: Urinalysis yellow, hazy, pH 5.0, SG 1.013, protein negative , occult blood negative, random protein/creatinine ratio 240 mg/g creatinine and random urine sodium 49. Labs on 04/22/18: iPTH 98.7 Previous work up: Renal US on 12/31/17: Slightly echogenic renal parenchyma bilaterally which may be seen with chronic medical renal disease. Kidneys are otherwise anatomically normal. Labs on 12/31/17: Urinalysis yellow, hazy, pH 6.0, SG 1.012, protein negative , occult blood 0.03, no cellular casts, random protein/creatinine ratio 230 mg/ g creatinine and random microalbumin/creatinine ratio 19 mg/g creatinine. Progress: Urine output: 2150 ml Creatinine 1.9, did not change in the past 24 hours Metabolic alkalosis (CO2 42), worsening Fluid overload, improved Status: Acute Priority: Medium Qualifiers: Acute renal failure type: unspecified Chronic kidney disease stage: stage 3 (moderate) Qualified Code(s): N17.9 - Acute kidney failure, unspecified; N18.3 - Chronic kidney disease, stage 3 (moderate) (2) Other fluid overload Fluid overload associated with chronic cor pulmonale (Echo on 12/03/17: LVEF 48% , mild global hypokinesis, right ventricle severely dilated, severe pulmonary hypertension). I recommended adequate treatment of obstructive sleep apnea. He stated he is not using his new CPAP because it turns of for air leak. He is still using the old one but does not think pressures are enough. I recommended calling the service for evaluation. Status: Chronic Priority: Medium
[2018-04-26] MEDS ORDERED: METOLAZONE 2.5 MG TABLET PO SCH (07:30)
[2018-04-26] MEDS: BUMETANIDE 1 MG TABLET PO SCH ×2 (08:20→16:00)
[2018-04-26] MEDS: POTASSIUM CHLORIDE 20 MEQ TABLET PO SCH (08:20)
[2018-04-26] MEDS: FLUCONAZOLE 100 MG TABLET PO SCH (08:31)
[2018-04-26] MEDS: DOCUSATE SODIUM 100 MG CAPSULE PO SCH ×2 (08:31→21:08)
[2018-04-26] MEDS ORDERED: acetaZOLAMIDE SOD 500 MG VIAL IV ONE ×2 (09:11→12:00)
--- NOTE | 2018-04-26 09:16 | Internal Med Progress Note ---
Medical - PN: Subj Patient information: Note initiated : 04/26/18 at 9:13 am Service Date, if different from initiated Date: [] Patient: Branden Espinosa 57 y/o M admitted on 04/20/18 for Worsening Renal Failure. Chief Complaint: [] Interval history: Mr. Espinosa is a 57 year old Male with history of morbid obesity, bedbound, severe pulmonary hypertension, congestive heart failure, chronic kidney disease atrial fibrillation. The patient presents to the hospital for worsening shortness of breath and increased edema in his body. The patient was discharged from this facility I believe on 20 March. He was transferred to [facility] for placement of a pacemaker. His admission in March was also for increased swelling, worsening renal function and was treated as congestive heart failure. At that point in time the patient was supratherapeutic and his INR as well as supratherapeutic and his digoxin level. Digoxin was held. The patient eventually was transferred to a higher center for placement of a pacemaker because of significant cardiac pauses. He underwent the pacemaker placement and was discharged from the facility. According to the patient since his discharge from the tertiary facility the patient has been having increased swelling in his lower extremities. This has been progressively getting worse, this has been accompanied by shortness of breath. He denies any other acute complaints or concerns. He denies taking in too much fluid he is watching his salt intake and is not taking any NSAIDs. The patient denies any chest pain denies any dizziness he does have intermittent changes in vision. The patient was being followed by nephrology in the outpatient, his dose of diuretics were being changed however despite this the patient's edema kept getting worse and therefore the patient was asked to come to the emergency room for evaluation. In the ER the patient was noted to have worsening renal failure, elevated bnp, significant edema, cxr was clear, showed resolving pna, ekg showed poor voltate , afib, 04/21 Patient seen and examined, overnight was not able to sleep well, there was some malfunction in the bariatric bed which kept beeping. Patient tired this morning. He has extensive erythema on his back possible fungal rash. Patient has not had a bowel movement for the last few days wanting a stool softener. He notes his shortness of breath is somewhat better but still not able to lie flat, denies any chest pain nausea vomiting. Appreciate nephrology input. Patient remains on IV Lasix, negative balance since yesterday,-1550 04/22 Pt seen examined, tired today, did not sleep well, bp on the lower end of normal , neg 1500 yesterday Pt has no other complaints. had bm this after noon. nephrology following. labs stable. 04/23 Pt seen examined, slept well last night, denies any acute complaints, noted some chest discomfort yesterday, no chest tightness or pressure, just a flicker, Pt is already anticoagulated with coumadin and INR is therapeutic The patient Creat is trending down, creat is 2.2, He is diuresing well, Neg 5L since admission Plan to use chlorothiazide this afternoon, and then followed by lasix to see if we can improve diuresis 04/24 Pt seen examined, no acute overnight events, [place] [id number] since admission, still has significant edema Start on metolozone 5mg daily, continue IV lasix 80 bid add acetazolamide one dose today for worsening metabolic alkalosis. BP stable HR stable Dig level 1.2-1.3, pt has pacemaker, intermittently pacing on tele inr therapeutic PT feels cpap is not giving enough pressure, even at 14mmhg, have spoken with RT to look into the device. 04/24 [place] [id number] since admission, pt feels ok, still has significant dependent edema, I feel we can switch him to oral meds and see if he continues to diurese on same d/c iv lasix, start on po bumex, and metolozone 5mg before bumex and monitor urine output The patient bed was not zeroed in, and therefore the daily weights are not accurate, I am not using daily weight to monitor treatment at this time. 04/26-patient doing well. No overnight events. Over 1600 cc net negative in 24 hours. Lower dose of metolazone. Continue Diamox due to contraction alkalosis. Patient undergoing strengthening exercises. Case management arranging SNF transfer. No fever chills shortness of breath. - Constitutional Vitals: Vital Signs Temp Pulse Resp BP Pulse Ox 97.6 F 104 H 16 102/63 90 04/26/18 04:00 04/26/18 04:00 04/26/18 04:00 04/26/18 04:00 04/26/18 04:00 Period Temp Pulse Resp BP Sys/Andujar Pulse Ox Last 24 Hr 97.6 F-98 F 78-104 16-20 98-124/63-82 90-98 Intake and Output 04/25/18 04/26/18 04/26/18 21:59 05:59 13:59 Intake Total 360 / 360 Output Total 675 / 675 650 / 650 525 / 525 Balance -675 / -675 -290 / -290 -525 / -525 Intake & Output: Intake & Output 04/25/18 04/26/18 04/26/18 21:59 05:59 13:59 Intake Total 360 / 360 Output Total 675 / 675 650 / 650 525 / 525 Balance -675 / -675 -290 / -290 -525 / -525 Intake: Oral 360 / 360 Output: Urine Catheter Amount 200 / 200 Void Amount 475 / 475 650 / 650 525 / 525 # of times incontinent of urine 0 / 0 Other: Meal Dinner Percent of Meal Consumed 50% Feeding Ability Independent # Voids 2 1 General appearance: morbidly obese Exam: Anasarca Nonlabored breathing Nondistended abdomen Lymphedema improving lower extremity and dependent sacral/back No anxiety Medical - PN: Obj Da - Labs CBC & Chem 7: 04/26/18 03:33 04/26/18 03:33 Labs: Abnormal Lab Results 04/26/18 04/26/18 04/26/18 03:33 03:33 03:33 WBC RBC 2.86 L Hgb 9.7 L Hct 29.7 L MCV 103.8 H MCH RDW 16.9 H Plt Count 127 L Eos % (Auto) Lymph # (Auto) 0.8 L PT 25.4 H INR 2.3 H Chloride 93 L Carbon Dioxide 42 H* Anion Gap 6.0 L BUN 47 H Creatinine 1.9 H Uric Acid 16.0 H Phosphorus 2.6 L Direct Bilirubin 0.4 H Albumin 3.0 L Albumin (PEP) Globulin 5.0 H Globulin (PEP) Albumin/Globulin Ratio 0.6 L Albumin/Globulin (PEP) Gamma Globulins 04/25/18 04/25/18 04/25/18 04:00 04:00 04:00 WBC 4.3 L RBC 2.74 L Hgb 9.4 L Hct 28.4 L MCV 103.8 H MCH 34.3 H RDW 17.4 H Plt Count 123 L Eos % (Auto) Lymph # (Auto) 0.8 L PT 25.6 H INR 2.3 H Chloride 93 L Carbon Dioxide 41 H* Anion Gap 7.0 L BUN 47 H Creatinine 1.9 H Uric Acid 16.2 H Phosphorus Direct Bilirubin 0.4 H Albumin 3.1 L Albumin (PEP) Globulin 4.8 H Globulin (PEP) Albumin/Globulin Ratio 0.6 L Albumin/Globulin (PEP) Gamma Globulins 04/24/18 04/24/18 04/24/18 04:00 04:00 04:00 WBC 4.3 L RBC 2.82 L Hgb 9.6 L Hct 29.2 L MCV 103.7 H MCH 34.2 H RDW 17.4 H Plt Count 125 L Eos % (Auto) 7.1 H Lymph # (Auto) 0.8 L PT 23.4 H INR 2.1 H Chloride 91 L Carbon Dioxide 39 H Anion Gap BUN 49 H Creatinine 2.1 H Uric Acid 16.7 H Phosphorus Direct Bilirubin 0.4 H Albumin 2.9 L Albumin (PEP) Globulin 5.2 H Globulin (PEP) Albumin/Globulin Ratio 0.6 L Albumin/Globulin (PEP) Gamma Globulins 04/22/18 04:00 WBC RBC Hgb Hct MCV MCH RDW Plt Count Eos % (Auto) Lymph # (Auto) PT INR Chloride Carbon Dioxide Anion Gap BUN Creatinine Uric Acid Phosphorus Direct Bilirubin Albumin Albumin (PEP) 2.81 L Globulin Globulin (PEP) 4.9 H Albumin/Globulin Ratio Albumin/Globulin (PEP) 0.6 L Gamma Globulins 2.99 H Meds: Medications Acetaminophen (Tylenol) 650 mg PO Q6HP PRN PRN Reason: PAIN/FEVER > 101 Hydrocodone Bitart/Acetaminophen ([place] 10/325mg) 2 tab PO Q6HP PRN PRN Reason: Pain Last Admin: 04/26/18 05:37 Dose: 2 tab Acetazolamide Sodium (Diamox) 500 mg IV DAILY [facility] Bumetanide (Bumex) 2 mg PO BIDD [facility] Last Admin: 04/26/18 08:20 Dose: 2 mg Digoxin (Lanoxin) 125 mcg PO Q48H [facility] Last Admin: 04/25/18 14:02 Dose: 125 mcg Docusate Sodium (Colace) 100 mg PO BID [facility] Last Admin: 04/26/18 08:31 Dose: 100 mg Fluconazole (Diflucan) 200 mg PO DAILY [facility] Stop: 04/28/18 12:25 Last Admin: 04/26/18 08:31 Dose: 200 mg Heparin Sodium (Porcine) (Heparin Flush) 2 ml IV Q12 [facility] Last Admin: 04/26/18 08:32 Dose: 2 ml Metolazone (Zaroxolyn) 2.5 mg PO DAILY@0730 [facility] Naloxone HCl (Narcan) 0.1 mg IV Q2MIN PRN PRN Reason: Opiate Reversal Ondansetron HCl (Zofran Odt) 4 mg SL Q4HP PRN PRN Reason: Nausea And Vomiting Polyethylene Glycol (Miralax) 17 gm PO DAILY PRN PRN Reason: Constipation Last Admin: 04/25/18 12:55 Dose: 17 gm Potassium Chloride (Kdur) 20 meq [facility] Last Admin: 04/26/18 08:20 Dose: 20 meq Sodium Chloride (Saline Flush) 10 ml IV UD PRN PRN Reason: FLUSH Sodium Chloride (Saline Flush) 10 ml IV Q8 [facility] Last Admin: 04/26/18 08:33 Dose: 10 ml Warfarin Sodium (Coumadin Per Pharmacy) 1 order PO UD [facility] Medical - PN: A/P - Time Spent With Patient Total time spent is greater than 50% in coordination of care (as documented) at patient's floor/unit and/or counseling patient: 25 - 35 minutes - Narrative A/P Narrative: A/P * Severe anasarca clinically improving. Over 15,000 cc net negative fluid output * Acute decompensated heart failure diastolic/ Acute cor pulmonale- d/c lasix, continued metolazone 2.5/Bumex 2 mg twice a day/IV Diamox. * Acute on chr renal failure/ Cardio renal syndrome-creatinine and downtrending from 2.5-1.9 * Contraction alkalosis secondary to diuresis-start Diamox * Atrial fibrillation, s/p pacemaker- rate better controlled, on digoxin, prn IV metoprolol. on Coumadin with therapeutic INR. dig level is 0.9 today, on po digoxin 0.125 every other day, PRn IV metoprolol for rate control, * HTN- was on lisinopril and carvedilol which has been held, would want bp to be on the higher end to allow diuresis. * Obstructive sleep apnea- on cpap at night. RT to evaluate if cpap functiong correctly, may need a repeat doug to evaluate new pressure settings. * Bed bound status / Morbid obesity- will need to loose weight or else his prognosis is very poor [facility], his BMI is 71. Await SNF transfer * Osteoarthritis.- prn pain meds. * chr wounds- wound cares following, no e/o sepsis. acute infectio * Lymphdedema- on diuresis, will need wt loss * Pneumonia -status post antibiotics. Resolved * DVT on coumadin with therapeutic INR * FUll code Plan * Continue diuresis * Pre-existing medical condition management as above * Disposition SNF. Case management coordinating Medical - PN: Qual - VTE Deep Vein Thrombosis/Pulmonary Embolism Present on Admission: No
[2018-04-26] MEDS ORDERED: WARFARIN 5 MG TABLET PO ONE (14:00)
--- NOTE | 2018-04-26 16:01 | General Surgery Progress Note ---
Subjective Patient reports: no new complaints Narrative: Note initiated : 04/26/18 at 3:59 pm Service Date, if different from initiated Date: [] Patient: Branden Espinosa 57 y/o M admitted on 04/20/18 for Worsening Renal Failure. Chief Complaint: [] Patient seen on rounds and progress reviewed with Delicia RN and with Dr. Méndez Hospitalist Physician. No interval changes in wound care. Patient is now agreeable to go to Rehab or SNF after arrangements are competed. Objective Temp Pulse Resp BP Pulse Ox 97.9 F 102 H 18 110/56 98 04/26/18 12:00 04/26/18 12:00 04/26/18 12:00 04/26/18 12:00 04/26/18 12:00 AVSS. NO changes FELI. Local skin and wound care is ongoing. - Additional Data Intake & Output - Last 24 hours: Intake & Output 04/24/18 04/25/18 04/26/18 04/27/18 05:59 05:59 05:59 05:59 Intake Total 930 / 930 790 / 790 620 / 620 120 / 120 Output Total 4750 / 4750 3700 / 3700 2350 / 2350 1100 / 1100 Balance -3820 / -3820 -2910 / -2910 -1730 / -1730 -980 / -980 Weight 470 lb - Labs 04/26/18 03:33 04/26/18 03:33 Diabetes panel 04/26/18 Range/Units 03:33 Sodium 141 (133-145) mmol/L Potassium 3.8 (3.3-5.1) mmol/L Chloride 93 L (96-108) mmol/L Carbon Dioxide 42 H* (22-30) mmol/L BUN 47 H (6-20) mg/dl Creatinine 1.9 H (0.7-1.2) mg/dl Glucose 88 (70-105) mg/dL Calcium 9.2 (8.6-10.4) mg/dl AST 24 (0-37) U/l ALT 6 (0-40) U/l Alkaline Phosphatase 104 (39-117) U/L Total Protein 8.0 (5.9-8.4) gm/dL Albumin 3.0 L (3.2-5.2) gm/dL Triglycerides 108 (<150) mg/dl Calcium panel 04/26/18 Range/Units 03:33 Calcium 9.2 (8.6-10.4) mg/dl Phosphorus 2.6 L (2.7-4.5) mg/dL Albumin 3.0 L (3.2-5.2) gm/dL Pituitary panel 04/26/18 Range/Units 03:33 Sodium 141 (133-145) mmol/L Potassium 3.8 (3.3-5.1) mmol/L Chloride 93 L (96-108) mmol/L Carbon Dioxide 42 H* (22-30) mmol/L BUN 47 H (6-20) mg/dl Creatinine 1.9 H (0.7-1.2) mg/dl Glucose 88 (70-105) mg/dL Calcium 9.2 (8.6-10.4) mg/dl Adrenal panel 04/26/18 Range/Units 03:33 Sodium 141 (133-145) mmol/L Potassium 3.8 (3.3-5.1) mmol/L Chloride 93 L (96-108) mmol/L Carbon Dioxide 42 H* (22-30) mmol/L BUN 47 H (6-20) mg/dl Creatinine 1.9 H (0.7-1.2) mg/dl Glucose 88 (70-105) mg/dL Calcium 9.2 (8.6-10.4) mg/dl Total Bilirubin 0.9 (0.0-1.0) mg/dL AST 24 (0-37) U/l ALT 6 (0-40) U/l Alkaline Phosphatase 104 (39-117) U/L Total Protein 8.0 (5.9-8.4) gm/dL Albumin 3.0 L (3.2-5.2) gm/dL Assessment and Plan - Narrative A/P Narrative: Assessment: Stable from wound point of view. Plan: Continue current skin and wound care. If discharged, schedule wound care follow up in 2 weeks. - Time Spent With Patient Total time spent is greater than 50% in coordination of care (as documented) at patient's floor/unit and/or counseling patient: less than 15 minutes
[2018-04-27 05:08] LABS: Basophils # (Auto) 0 K/mcL (0.0-0.3); Basophils % (Auto) 0.4 % (0.0-2.0); Eosinophils # (Auto) 0.2 K/mcL (0.0-0.7); Eosinophils % (Auto) 5.3 % (0.0-7.0); Granulocytes % (Auto) 64.9 % (38.0-78.0); Lymphocytes # (Auto) 0.7 K/mcL (1.5-4.8); Lymphocytes % (Auto) 18.1 % (15.5-49.0); Mean Cell Volume 103.9 fL (80.0-100.0); Mean Corpuscular HGB Conc 32.7 g/dL (31.0-36.0); Mean Corpuscular Hemoglobin 33.9 pg (26.0-34.0); Monocytes # (Auto) 0.5 K/mcL (0.1-0.9); Monocytes % (Auto) 11.3 % (1.0-12.0); Platelet Count 125 K/mcL (140-440); RBC 2.69 M/mcL (4.50-5.90); Red Cell Distribution Width 17.2 % (11.5-14.5)
[2018-04-27 06:10] LABS: ALT/SGPT 6 U/l (0-40); Albumin 2.9 gm/dL (3.2-5.2); Albumin/Globulin Ratio 0.6 (1.0-2.3); Alkaline Phosphatase 99 U/L (39-117); Bilirubin,Direct 0.4 mg/dL (0.0-0.3); Blood Urea Nitrogen 47 mg/dl (6-20); Gamma Glutamyl Transpeptidase 43 U/L (8-61); Uric Acid 15.9 mg/dL (2.5-8.0)
--- NOTE | 2018-04-27 06:50 | Nephrology Progress Note ---
Subjective Patient information: Note initiated : 04/27/18 at 6:48 am Branden Espinosa is a [id number] male with chronic kidney disease stage 3, chronic anemia associated with chronic kidney disease, generalized edema, hypertension, morbid obesity, cor pulmonale, chronic atrial fibrillation on Coumadin (Echo on 12/03/17: LVEF 48%, mild global hypokinesis, right ventricle severely dilated, severe pulmonary hypertension), admitted on 04/20/18 for acute on chronic renal failure with fluid overload. Chief Complaint: Worsening leg edema Principal diagnosis: Acute on chronic renal failure with fluid overload Pertinent ROS: Weakness Shortness of breath Edema Wounds Objective - Vital Signs Vital signs: Vital Signs Temp Pulse Resp BP Pulse Ox 04/27/18 04:00 99.4 F H 16 98/58 92 04/27/18 00:00 97.9 F 16 115/71 92 04/26/18 20:00 99.1 F H 16 96/59 97 04/26/18 19:20 94 04/26/18 16:00 98.1 F 18 110/67 98 04/26/18 12:00 97.9 F 102 H 18 110/56 98 04/26/18 08:00 98.2 F 18 124/78 93 Intake and Output 04/26/18 04/27/18 04/27/18 21:59 05:59 13:59 Intake Total 270 / 270 150 / 150 Output Total 1050 / 1050 200 / 200 Balance -780 / -780 -50 / -50 Intake: Oral 270 / 270 150 / 150 Output: Void Amount 1050 / 1050 200 / 200 Other: Meal snack Percent of Meal Consumed 100% Feeding Ability Assist with Tray Set Up Intake & Output: Intake & Output 04/26/18 04/27/18 04/27/18 21:59 05:59 13:59 Intake Total 270 / 270 150 / 150 Output Total 1050 / 1050 200 / 200 Balance -780 / -780 -50 / -50 Intake: Oral 270 / 270 150 / 150 Output: Void Amount 1050 / 1050 200 / 200 Other: Meal snack Percent of Meal Consumed 100% Feeding Ability Assist with Tray Set Up - General Appearance General appearance: obese, chronically ill EENT: mucous membranes dry Neck: supple Respiratory: clear Cardiology: edema Gastrointestinal: no tenderness Integumentary: hyperpigmentation, chronic venous stasis Neurologic: no focal deficit, alert and oriented x3 Musculoskeletal: no deformities Psychiatric: mood/affect appropriate, cooperative - Lab 04/27/18 03:43 04/27/18 03:43 Most recent lab results Calcium 8.9 mg/dl (8.6-10.4) 04/27/18 03:43 Phosphorus 2.7 mg/dL (2.7-4.5) 04/27/18 03:43 Magnesium 1.9 mg/dL (1.6-2.5) 04/27/18 03:43 Assessment and Plan (1) Acute on chronic kidney failure New work up: Renal US on 12/31/17: Slightly echogenic renal parenchyma bilaterally which may be seen with chronic medical renal disease. Kidneys are otherwise anatomically normal. Labs on 04/20/18: Urinalysis yellow, hazy, pH 5.0, SG 1.013, protein negative , occult blood negative, random protein/creatinine ratio 240 mg/g creatinine and random urine sodium 49. Labs on 04/22/18: iPTH 98.7 Previous work up: Renal US on 12/31/17: Slightly echogenic renal parenchyma bilaterally which may be seen with chronic medical renal disease. Kidneys are otherwise anatomically normal. Labs on 12/31/17: Urinalysis yellow, hazy, pH 6.0, SG 1.012, protein negative , occult blood 0.03, no cellular casts, random protein/creatinine ratio 230 mg/ g creatinine and random microalbumin/creatinine ratio 19 mg/g creatinine. Treatment; Bumex 2 mg PO BIDD, Metolazone 2.5 mg PO QAM and Potassium Chloride 20 mEq PO QAM. Progress: Urine output: 2150 ml Creatinine decreased from 1.9 to 1.8 in the past 24 hours Metabolic alkalosis (CO2 42). Fluid overload, improved Status: Acute Priority: Medium Qualifiers: Acute renal failure type: unspecified Chronic kidney disease stage: stage 3 (moderate) Qualified Code(s): N17.9 - Acute kidney failure, unspecified; N18.3 - Chronic kidney disease, stage 3 (moderate) (2) Other fluid overload Fluid overload associated with chronic cor pulmonale (Echo on 12/03/17: LVEF 48% , mild global hypokinesis, right ventricle severely dilated, severe pulmonary hypertension). I recommended adequate treatment of obstructive sleep apnea. He stated he is not using his new CPAP because it turns of for air leak. He is still using the old one but does not think pressures are enough. I recommended calling the service for evaluation. Status: Chronic Priority: Medium
[2018-04-27 08:21] LABS: Abnormal Protein Band 1 3 mg/dL (SEE COMMENT); Alpha-2-Globulin 8 %; Pro/Creat Ratio 367 mg/g cre (22-128)
[2018-04-27] MEDS: 0.9 % SODIUM CHLORIDE 10 ML SYRINGE IV SCH ×3 (08:30→22:05)
[2018-04-27] MEDS: 0.9 % SODIUM CHLORIDE 10 ML SYRINGE IV PRN (08:30)
[2018-04-27] MEDS: FLUCONAZOLE 100 MG TABLET PO SCH (08:31)
[2018-04-27] MEDS: POTASSIUM CHLORIDE 20 MEQ TABLET PO SCH (08:31)
[2018-04-27] MEDS: acetaZOLAMIDE SOD 500 MG VIAL IV SCH (08:46)
[2018-04-27] MEDS: METOLAZONE 2.5 MG TABLET PO SCH (08:46)
[2018-04-27] MEDS: DOCUSATE SODIUM 100 MG CAPSULE PO SCH ×2 (08:46→21:05)
[2018-04-27] MEDS: HYDROcodone/APAP 10/325MG TABLET PO PRN ×2 (09:17→13:40)
[2018-04-27] MEDS: ONDANSETRON ODT 4 MG TABLET SL PRN (09:18)
[2018-04-27] MEDS: BUMETANIDE 1 MG TABLET PO SCH ×2 (10:21→16:39)
[2018-04-27] MEDS ORDERED: MAGNESIUM CITRATE 300 ML ORAL.SOL PO ONE (12:52)
[2018-04-27] MEDS: DIGOXIN 125 MCG TABLET PO SCH (13:40)
[2018-04-27] MEDS ORDERED: WARFARIN 5 MG TABLET PO ONE (14:00)
--- NOTE | 2018-04-27 16:10 | Internal Med Progress Note ---
Medical - PN: Subj Patient information: Note initiated : 04/27/18 at 4:05 pm Service Date, if different from initiated Date: [] Patient: Branden Espinosa 57 y/o M admitted on 04/20/18 for Worsening Renal Failure. Chief Complaint: [] Interval history: Mr. Espinosa is a 57 year old Male with history of morbid obesity, bedbound, severe pulmonary hypertension, congestive heart failure, chronic kidney disease atrial fibrillation. The patient presents to the hospital for worsening shortness of breath and increased edema in his body. The patient was discharged from this facility I believe on 20 March. He was transferred to [facility] for placement of a pacemaker. His admission in March was also for increased swelling, worsening renal function and was treated as congestive heart failure. At that point in time the patient was supratherapeutic and his INR as well as supratherapeutic and his digoxin level. Digoxin was held. The patient eventually was transferred to a higher center for placement of a pacemaker because of significant cardiac pauses. He underwent the pacemaker placement and was discharged from the facility. According to the patient since his discharge from the tertiary facility the patient has been having increased swelling in his lower extremities. This has been progressively getting worse, this has been accompanied by shortness of breath. He denies any other acute complaints or concerns. He denies taking in too much fluid he is watching his salt intake and is not taking any NSAIDs. The patient denies any chest pain denies any dizziness he does have intermittent changes in vision. The patient was being followed by nephrology in the outpatient, his dose of diuretics were being changed however despite this the patient's edema kept getting worse and therefore the patient was asked to come to the emergency room for evaluation. In the ER the patient was noted to have worsening renal failure, elevated bnp, significant edema, cxr was clear, showed resolving pna, ekg showed poor voltate , afib, 04/21 Patient seen and examined, overnight was not able to sleep well, there was some malfunction in the bariatric bed which kept beeping. Patient tired this morning. He has extensive erythema on his back possible fungal rash. Patient has not had a bowel movement for the last few days wanting a stool softener. He notes his shortness of breath is somewhat better but still not able to lie flat, denies any chest pain nausea vomiting. Appreciate nephrology input. Patient remains on IV Lasix, negative balance since yesterday,-1550 04/22 Pt seen examined, tired today, did not sleep well, bp on the lower end of normal , neg 1500 yesterday Pt has no other complaints. had bm this after noon. nephrology following. labs stable. 04/23 Pt seen examined, slept well last night, denies any acute complaints, noted some chest discomfort yesterday, no chest tightness or pressure, just a flicker, Pt is already anticoagulated with coumadin and INR is therapeutic The patient Creat is trending down, creat is 2.2, He is diuresing well, Neg 5L since admission Plan to use chlorothiazide this afternoon, and then followed by lasix to see if we can improve diuresis 04/24 Pt seen examined, no acute overnight events, [place] [id number] since admission, still has significant edema Start on metolozone 5mg daily, continue IV lasix 80 bid add acetazolamide one dose today for worsening metabolic alkalosis. BP stable HR stable Dig level 1.2-1.3, pt has pacemaker, intermittently pacing on tele inr therapeutic PT feels cpap is not giving enough pressure, even at 14mmhg, have spoken with RT to look into the device. 04/24 [place] [id number] since admission, pt feels ok, still has significant dependent edema, I feel we can switch him to oral meds and see if he continues to diurese on same d/c iv lasix, start on po bumex, and metolozone 5mg before bumex and monitor urine output The patient bed was not zeroed in, and therefore the daily weights are not accurate, I am not using daily weight to monitor treatment at this time. 04/26-patient doing well. No overnight events. Over 1600 cc net negative in 24 hours. Lower dose of metolazone. Continue Diamox due to contraction alkalosis. Patient undergoing strengthening exercises. Case management arranging SNF transfer. No fever chills shortness of breath. 04/27 -patient doing well. No overnight events. No concerns per staff. No fever chills or shortness of breath. Diuresing well. Additional 2700 cc negative. Bicarbonate at 42 with contraction alkalosis on Diamox. Creatinine 1.8. Ongoing physical therapy. Nephrology on board. - Constitutional Vitals: Vital Signs Temp Pulse Resp BP Pulse Ox 98.3 F 128 H 18 113/74 98 04/27/18 12:00 04/27/18 12:00 04/27/18 12:00 04/27/18 12:00 04/27/18 12:00 Period Temp Pulse Resp BP Sys/Andujar Pulse Ox Last 24 Hr 97.9 F-99.4 F 111-128 16-18 96-115/58-74 92-98 Intake and Output 04/27/18 04/27/18 04/27/18 05:59 13:59 21:59 Intake Total 150 / 150 60 / 60 Output Total 200 / 200 275 / 275 Balance -50 / -50 -215 / -215 Intake & Output: Intake & Output 04/27/18 04/27/18 04/27/18 05:59 13:59 21:59 Intake Total 150 / 150 60 / 60 Output Total 200 / 200 275 / 275 Balance -50 / -50 -215 / -215 Intake: Oral 150 / 150 60 / 60 Output: Void Amount 200 / 200 275 / 275 Other: # Voids 1 General appearance: no acute distress Exam: Morbidly obese Improving dependent edema Non-labored breathing No anxiety Medical - PN: Obj Da - Labs CBC & Chem 7: 04/27/18 03:43 04/27/18 03:43 Labs: Abnormal Lab Results 04/27/18 04/27/18 04/27/18 03:43 03:43 03:43 WBC 4.1 L RBC 2.69 L Hgb 9.1 L Hct 27.9 L MCV 103.9 H MCH RDW 17.2 H Plt Count 125 L Lymph # (Auto) 0.7 L PT 26.3 H INR 2.4 H Chloride 93 L Carbon Dioxide 42 H* Anion Gap 7.0 L BUN 47 H Creatinine 1.8 H Uric Acid 15.9 H Phosphorus Direct Bilirubin 0.4 H Albumin 2.9 L Albumin (PEP) Globulin 4.6 H Globulin (PEP) Albumin/Globulin Ratio 0.6 L Albumin/Globulin (PEP) Gamma Globulins U Random Total Protein U [place] Prot/Creat Ratio U Monoclonal Protein 04/26/18 04/26/18 04/26/18 03:33 03:33 03:33 WBC RBC 2.86 L Hgb 9.7 L Hct 29.7 L MCV 103.8 H MCH RDW 16.9 H Plt Count 127 L Lymph # (Auto) 0.8 L PT 25.4 H INR 2.3 H Chloride 93 L Carbon Dioxide 42 H* Anion Gap 6.0 L BUN 47 H Creatinine 1.9 H Uric Acid 16.0 H Phosphorus 2.6 L Direct Bilirubin 0.4 H Albumin 3.0 L Albumin (PEP) Globulin 5.0 H Globulin (PEP) Albumin/Globulin Ratio 0.6 L Albumin/Globulin (PEP) Gamma Globulins U Random Total Protein U [place] Prot/Creat Ratio U Monoclonal Protein 04/25/18 04/25/18 04/25/18 04:00 04:00 04:00 WBC 4.3 L RBC 2.74 L Hgb 9.4 L Hct 28.4 L MCV 103.8 H MCH 34.3 H RDW 17.4 H Plt Count 123 L Lymph # (Auto) 0.8 L PT 25.6 H INR 2.3 H Chloride 93 L Carbon Dioxide 41 H* Anion Gap 7.0 L BUN 47 H Creatinine 1.9 H Uric Acid 16.2 H Phosphorus Direct Bilirubin 0.4 H Albumin 3.1 L Albumin (PEP) Globulin 4.8 H Globulin (PEP) Albumin/Globulin Ratio 0.6 L Albumin/Globulin (PEP) Gamma Globulins U Random Total Protein U [place] Prot/Creat Ratio U Monoclonal Protein 04/22/18 04/20/18 04:00 13:30 WBC RBC Hgb Hct MCV MCH RDW Plt Count Lymph # (Auto) PT INR Chloride Carbon Dioxide Anion Gap BUN Creatinine Uric Acid Phosphorus Direct Bilirubin Albumin Albumin (PEP) 2.81 L Globulin Globulin (PEP) 4.9 H Albumin/Globulin Ratio Albumin/Globulin (PEP) 0.6 L Gamma Globulins 2.99 H U Random Total Protein 29 H U [place] Prot/Creat Ratio 367 H U Monoclonal Protein 3 A Meds: Medications Acetaminophen (Tylenol) 650 mg PO Q6HP PRN PRN Reason: PAIN/FEVER > 101 Hydrocodone Bitart/Acetaminophen ([place] 10/325mg) 2 tab PO Q6HP PRN PRN Reason: Pain Last Admin: 04/27/18 13:40 Dose: 2 tab Acetazolamide Sodium (Diamox) 500 mg IV DAILY ANGELA Last Admin: 04/27/18 08:46 Dose: 500 mg Bumetanide (Bumex) 2 mg PO BIDD COUNT INCLUDES THE [facility] Last Admin: 04/27/18 10:21 Dose: 2 mg Digoxin (Lanoxin) 125 mcg PO Q48H COUNT INCLUDES THE [facility] Last Admin: 04/27/18 13:40 Dose: 125 mcg Docusate Sodium (Colace) 100 mg PO BID COUNT INCLUDES THE [facility] Last Admin: 04/27/18 08:46 Dose: 100 mg Fluconazole (Diflucan) 200 mg PO DAILY COUNT INCLUDES THE [facility] Stop: 04/28/18 12:25 Last Admin: 04/27/18 08:31 Dose: 200 mg Heparin Sodium (Porcine) (Heparin Flush) 2 ml IV Q12 COUNT INCLUDES THE [facility] Last Admin: 04/27/18 08:47 Dose: 2 ml Metolazone (Zaroxolyn) 2.5 mg PO DAILY@0730 COUNT INCLUDES THE [facility] Last Admin: 04/27/18 08:46 Dose: 2.5 mg Naloxone HCl (Narcan) 0.1 mg IV Q2MIN PRN PRN Reason: Opiate Reversal Ondansetron HCl (Zofran Odt) 4 mg SL Q4HP PRN PRN Reason: Nausea And Vomiting Last Admin: 04/27/18 09:18 Dose: 4 mg Polyethylene Glycol (Miralax) 17 gm PO DAILY PRN PRN Reason: Constipation Last Admin: 04/25/18 12:55 Dose: 17 gm Potassium Chloride (Kdur) 20 meq PO QAMCC COUNT INCLUDES THE [facility] Last Admin: 04/27/18 08:31 Dose: 20 meq Senna (Senokot) 1 tab PO BID COUNT INCLUDES THE [facility] Sodium Chloride (Saline Flush) 10 ml IV UD PRN PRN Reason: FLUSH Last Admin: 04/27/18 08:30 Dose: 10 ml Sodium Chloride (Saline Flush) 10 ml IV Q8 COUNT INCLUDES THE [facility] Last Admin: 04/27/18 08:30 Dose: 10 ml Warfarin Sodium (Coumadin Per Pharmacy) 1 order PO UD COUNT INCLUDES THE [facility] Medical - PN: A/P - Time Spent With Patient Total time spent is greater than 50% in coordination of care (as documented) at patient's floor/unit and/or counseling patient: 25 - 35 minutes (1) Renal anasarca Status: Acute Assessment and plan: * Severe anasarca clinically improving. Over 17,000 cc net negative fluid output. Continuing to diuresis well. * Acute decompensated heart failure diastolic/ Acute cor pulmonale-on metolazone 2.5/Bumex 2 mg twice a day/IV Diamox. * Acute on chr renal failure/ Cardio renal syndrome-creatinine and downtrending from 2.5-1.9->1.8 * Contraction alkalosis secondary to diuresis. Daily Diamox * Atrial fibrillation, s/p pacemaker- rate better controlled, on digoxin, prn IV metoprolol. on Coumadin with therapeutic INR. dig level is 0.9 today, on po digoxin 0.125 every other day, PRn IV metoprolol for rate control, * HTN- lisinopril and carvedilol on hold to keep blood pressure higher to promote diuresis * Obstructive sleep apnea- on cpap at night. * Bed bound status / Morbid obesity- Await SNF transfer for post hospitalization rehabilitation * Osteoarthritis.- prn pain meds. * [facility] wounds- wound cares following * Lymphdedema- on diuresis, will need wt loss * Pneumonia -status post antibiotics. Resolved * DVT on coumadin with therapeutic INR * FUll code Plan * Continue diuresis * Pre-existing medical condition management as above * Disposition SNF. Case management coordinating * Current Visit: Yes Medical - PN: Qual - VTE Deep Vein Thrombosis/Pulmonary Embolism Present on Admission: No
[2018-04-27] MEDS: SENNOSIDES 1 TABLET PO SCH (21:06)
[2018-04-28] MEDS: 0.9 % SODIUM CHLORIDE 10 ML SYRINGE IV PRN ×3 (07:00→08:17)
[2018-04-28] MEDS: 0.9 % SODIUM CHLORIDE 10 ML SYRINGE IV SCH ×3 (07:00→20:40)
--- NOTE | 2018-04-28 07:22 | Nephrology Progress Note ---
Subjective Patient information: Note initiated : 04/28/18 at 7:20 am Branden Espinosa is a [id number] male with chronic kidney disease stage 3, chronic anemia associated with chronic kidney disease, generalized edema, hypertension, morbid obesity, cor pulmonale, chronic atrial fibrillation on Coumadin (Echo on 12/03/17: LVEF 48%, mild global hypokinesis, right ventricle severely dilated, severe pulmonary hypertension), admitted on 04/20/18 for acute on chronic renal failure with fluid overload. Chief Complaint: Worsening leg edema Principal diagnosis: Acute on chronic renal failure with fluid overload Interval history: Waiting for placement Pertinent ROS: Weakness Shortness of breath Edema Wounds Objective - Vital Signs Vital signs: Vital Signs Temp Pulse Resp BP Pulse Ox 04/28/18 04:00 97.6 F 94 H 18 103/70 94 04/28/18 00:00 98.4 F 79 18 100/61 94 04/27/18 20:46 94 04/27/18 20:45 94 04/27/18 20:00 97.7 F 99 H 18 109/63 97 04/27/18 16:00 98.1 F 74 20 109/62 96 04/27/18 12:00 98.3 F 128 H 18 113/74 98 04/27/18 08:30 97 04/27/18 08:00 98.5 F 111 H 18 108/73 97 Intake and Output 04/27/18 04/28/18 04/28/18 21:59 05:59 13:59 Intake Total 930 / 930 300 / 300 Output Total 1375 / 1375 525 / 525 Balance -445 / -445 -225 / -225 Intake: Oral 930 / 930 300 / 300 Output: Void Amount 1375 / 1375 525 / 525 Other: Meal Dinner Percent of Meal Consumed 25% Feeding Ability Assist with Tray Set Up Weight 470 lb Intake & Output: Intake & Output 04/27/18 04/28/18 04/28/18 21:59 05:59 13:59 Intake Total 930 / 930 300 / 300 Output Total 1375 / 1375 525 / 525 Balance -445 / -445 -225 / -225 Weight 470 lb Intake: Oral 930 / 930 300 / 300 Output: Void Amount 1375 / 1375 525 / 525 Other: Meal Dinner Percent of Meal Consumed 25% Feeding Ability Assist with Tray Set Up - General Appearance General appearance: obese, chronically ill EENT: mucous membranes dry Neck: supple Respiratory: clear Cardiology: edema Gastrointestinal: no tenderness Integumentary: hyperpigmentation, chronic venous stasis Neurologic: no focal deficit Musculoskeletal: no deformities Psychiatric: mood/affect appropriate, cooperative - Lab 04/28/18 07:04 04/28/18 07:04 Most recent lab results Calcium 8.9 mg/dl (8.6-10.4) 04/27/18 03:43 Phosphorus 2.7 mg/dL (2.7-4.5) 04/27/18 03:43 Magnesium 1.9 mg/dL (1.6-2.5) 04/27/18 03:43 Assessment and Plan (1) Acute on chronic kidney failure New work up: Renal US on 12/31/17: Slightly echogenic renal parenchyma bilaterally which may be seen with chronic medical renal disease. Kidneys are otherwise anatomically normal. Labs on 04/20/18: Urinalysis yellow, hazy, pH 5.0, SG 1.013, protein negative , occult blood negative, random protein/creatinine ratio 240 mg/g creatinine and random urine sodium 49. Labs on 04/22/18: iPTH 98.7 Previous work up: Renal US on 12/31/17: Slightly echogenic renal parenchyma bilaterally which may be seen with chronic medical renal disease. Kidneys are otherwise anatomically normal. Labs on 12/31/17: Urinalysis yellow, hazy, pH 6.0, SG 1.012, protein negative , occult blood 0.03, no cellular casts, random protein/creatinine ratio 230 mg/ g creatinine and random microalbumin/creatinine ratio 19 mg/g creatinine. Treatment; Bumex 2 mg PO BIDD, Metolazone 2.5 mg PO QAM and Potassium Chloride 20 mEq PO QAM. Progress: Urine output: Adequate Creatinine : Stable. Metabolic alkalosis. Acetazolamide as needed in hospital. Fluid overload, improved Status: Acute Priority: Medium Qualifiers: Acute renal failure type: unspecified Chronic kidney disease stage: stage 3 (moderate) Qualified Code(s): N17.9 - Acute kidney failure, unspecified; N18.3 - Chronic kidney disease, stage 3 (moderate)
[2018-04-28 08:22] LABS: Basophils # (Auto) 0 K/mcL (0.0-0.3); Basophils % (Auto) 0.2 % (0.0-2.0); Eosinophils # (Auto) 0.2 K/mcL (0.0-0.7); Eosinophils % (Auto) 5.8 % (0.0-7.0); Granulocytes % (Auto) 65.1 % (38.0-78.0); Lymphocytes # (Auto) 0.8 K/mcL (1.5-4.8); Mean Cell Volume 103.6 fL (80.0-100.0); Mean Corpuscular HGB Conc 32.8 g/dL (31.0-36.0); Mean Corpuscular Hemoglobin 33.9 pg (26.0-34.0); Monocytes # (Auto) 0.5 K/mcL (0.1-0.9); Monocytes % (Auto) 10.9 % (1.0-12.0); Platelet Count 117 K/mcL (140-440); RBC 2.75 M/mcL (4.50-5.90); Red Cell Distribution Width 16.6 % (11.5-14.5)
[2018-04-28 08:56] LABS: ALT/SGPT 7 U/l (0-40); Albumin/Globulin Ratio 0.6 (1.0-2.3); Alkaline Phosphatase 106 U/L (39-117); Bilirubin,Direct 0.4 mg/dL (0.0-0.3); Blood Urea Nitrogen 46 mg/dl (6-20); Gamma Glutamyl Transpeptidase 47 U/L (8-61); Uric Acid 15.5 mg/dL (2.5-8.0)
[2018-04-28] MEDS: HYDROcodone/APAP 10/325MG TABLET PO PRN ×3 (09:52→16:30)
[2018-04-28] MEDS: METOLAZONE 2.5 MG TABLET PO SCH (09:52)
[2018-04-28] MEDS: acetaZOLAMIDE SOD 500 MG VIAL IV SCH ×2 (09:53→20:41)
[2018-04-28] MEDS: POLYETHYLENE GLYCOL 3350 17 GM PACKET PO PRN ×2 (09:53→10:37)
[2018-04-28] MEDS: POTASSIUM CHLORIDE 20 MEQ TABLET PO SCH (09:53)
[2018-04-28] MEDS: FLUCONAZOLE 100 MG TABLET PO SCH (09:53)
[2018-04-28] MEDS: DOCUSATE SODIUM 100 MG CAPSULE PO SCH ×2 (09:53→20:40)
[2018-04-28] MEDS: SENNOSIDES 1 TABLET PO SCH ×2 (10:03→20:40)
[2018-04-28] MEDS: BUMETANIDE 1 MG TABLET PO SCH ×2 (10:38→16:30)
[2018-04-28] MEDS: ONDANSETRON ODT 4 MG TABLET SL PRN (10:41)
--- NOTE | 2018-04-28 13:01 | Internal Med Progress Note ---
Medical - PN: Subj Patient information: Note initiated : 04/28/18 at 12:58 pm Service Date, if different from initiated Date: [] Patient: Branden Espinosa 57 y/o M admitted on 04/20/18 for Worsening Renal Failure. Chief Complaint: [] Interval history: Mr. Espinosa is a 57 year old Male with history of morbid obesity, bedbound, severe pulmonary hypertension, congestive heart failure, chronic kidney disease atrial fibrillation. The patient presents to the hospital for worsening shortness of breath and increased edema in his body. The patient was discharged from this facility I believe on 20 March. He was transferred to [facility] for placement of a pacemaker. His admission in March was also for increased swelling, worsening renal function and was treated as congestive heart failure. At that point in time the patient was supratherapeutic and his INR as well as supratherapeutic and his digoxin level. Digoxin was held. The patient eventually was transferred to a higher center for placement of a pacemaker because of significant cardiac pauses. He underwent the pacemaker placement and was discharged from the facility. According to the patient since his discharge from the tertiary facility the patient has been having increased swelling in his lower extremities. This has been progressively getting worse, this has been accompanied by shortness of breath. He denies any other acute complaints or concerns. He denies taking in too much fluid he is watching his salt intake and is not taking any NSAIDs. The patient denies any chest pain denies any dizziness he does have intermittent changes in vision. The patient was being followed by nephrology in the outpatient, his dose of diuretics were being changed however despite this the patient's edema kept getting worse and therefore the patient was asked to come to the emergency room for evaluation. In the ER the patient was noted to have worsening renal failure, elevated bnp, significant edema, cxr was clear, showed resolving pna, ekg showed poor voltate , afib, 04/21 Patient seen and examined, overnight was not able to sleep well, there was some malfunction in the bariatric bed which kept beeping. Patient tired this morning. He has extensive erythema on his back possible fungal rash. Patient has not had a bowel movement for the last few days wanting a stool softener. He notes his shortness of breath is somewhat better but still not able to lie flat, denies any chest pain nausea vomiting. Appreciate nephrology input. Patient remains on IV Lasix, negative balance since yesterday,-1550 04/22 Pt seen examined, tired today, did not sleep well, bp on the lower end of normal , neg 1500 yesterday Pt has no other complaints. had bm this after noon. nephrology following. labs stable. 04/23 Pt seen examined, slept well last night, denies any acute complaints, noted some chest discomfort yesterday, no chest tightness or pressure, just a flicker, Pt is already anticoagulated with coumadin and INR is therapeutic The patient Creat is trending down, creat is 2.2, He is diuresing well, Neg 5L since admission Plan to use chlorothiazide this afternoon, and then followed by lasix to see if we can improve diuresis 04/24 Pt seen examined, no acute overnight events, [place] [id number] since admission, still has significant edema Start on metolozone 5mg daily, continue IV lasix 80 bid add acetazolamide one dose today for worsening metabolic alkalosis. BP stable HR stable Dig level 1.2-1.3, pt has pacemaker, intermittently pacing on tele inr therapeutic PT feels cpap is not giving enough pressure, even at 14mmhg, have spoken with RT to look into the device. 04/24 [place] [id number] since admission, pt feels ok, still has significant dependent edema, I feel we can switch him to oral meds and see if he continues to diurese on same d/c iv lasix, start on po bumex, and metolozone 5mg before bumex and monitor urine output The patient bed was not zeroed in, and therefore the daily weights are not accurate, I am not using daily weight to monitor treatment at this time. 04/26-patient doing well. No overnight events. Over 1600 cc net negative in 24 hours. Lower dose of metolazone. Continue Diamox due to contraction alkalosis. Patient undergoing strengthening exercises. Case management arranging SNF transfer. No fever chills shortness of breath. 04/27 -patient doing well. No overnight events. No concerns per staff. No fever chills or shortness of breath. Diuresing well. Additional 2700 cc negative. Bicarbonate at 42 with contraction alkalosis on Diamox. Creatinine 1.8. Ongoing physical therapy. Nephrology on board. 04/28-patient doing better. Ongoing diuresis. No dyspnea/chest pain. Ongoing physical therapy. Continues to be bedridden due to morbid obesity. Anticipate SNF transfer. Case management and coordinating. Creatinine 1.9. Bicarbonate 44 on twice-daily Diamox. - Constitutional Vitals: Vital Signs Temp Pulse Resp BP Pulse Ox 97.3 F 79 18 108/65 92 04/28/18 08:20 04/28/18 08:20 04/28/18 08:20 04/28/18 08:20 04/28/18 08:20 Period Temp Pulse Resp BP Sys/Andujar Pulse Ox Last 24 Hr 97.3 F-98.4 F 74-99 18-20 100-109/61-70 92-97 Intake and Output 04/27/18 04/28/18 04/28/18 21:59 05:59 13:59 Intake Total 930 / 930 300 / 300 120 / 120 Output Total 1375 / 1375 525 / 525 625 / 625 Balance -445 / -445 -225 / -225 -505 / -505 Weight 470 lb Intake & Output: Intake & Output 04/27/18 04/28/18 04/28/18 21:59 05:59 13:59 Intake Total 930 / 930 300 / 300 120 / 120 Output Total 1375 / 1375 525 / 525 625 / 625 Balance -445 / -445 -225 / -225 -505 / -505 Weight 470 lb Intake: Oral 930 / 930 300 / 300 120 / 120 Output: Void Amount 1375 / 1375 525 / 525 625 / 625 Other: Meal Dinner Percent of Meal Consumed 25% Feeding Ability Assist with Tray Set Up Stool Size Moderate Stool Color Brown Stool Consistency Soft # Bowel Movements 1 General appearance: morbidly obese, no acute distress Exam: Nonlabored breathing Nondistended abdomen Improving lymphedema Medical - PN: Obj Da - Labs CBC & Chem 7: 04/28/18 07:04 04/28/18 07:04 Labs: Abnormal Lab Results 04/28/18 04/28/18 04/28/18 08:16 07:04 07:04 WBC 4.3 L RBC 2.75 L Hgb 9.3 L Hct 28.5 L MCV 103.6 H RDW 16.6 H Plt Count 117 L Lymph # (Auto) 0.8 L PT 26.8 H INR 2.4 H Chloride 92 L Carbon Dioxide 44 H* Anion Gap 4.0 L BUN 46 H Creatinine 1.9 H Uric Acid 15.5 H Phosphorus Direct Bilirubin 0.4 H Albumin 3.0 L Albumin (PEP) Globulin 4.9 H Globulin (PEP) Albumin/Globulin Ratio 0.6 L Albumin/Globulin (PEP) Gamma Globulins U Random Total Protein U Rowe Prot/Creat Ratio U Monoclonal Protein 04/27/18 04/27/18 04/27/18 03:43 03:43 03:43 WBC 4.1 L RBC 2.69 L Hgb 9.1 L Hct 27.9 L MCV 103.9 H RDW 17.2 H Plt Count 125 L Lymph # (Auto) 0.7 L PT 26.3 H INR 2.4 H Chloride 93 L Carbon Dioxide 42 H* Anion Gap 7.0 L BUN 47 H Creatinine 1.8 H Uric Acid 15.9 H Phosphorus Direct Bilirubin 0.4 H Albumin 2.9 L Albumin (PEP) Globulin 4.6 H Globulin (PEP) Albumin/Globulin Ratio 0.6 L Albumin/Globulin (PEP) Gamma Globulins U Random Total Protein U Rowe Prot/Creat Ratio U Monoclonal Protein 04/26/18 04/26/18 04/26/18 03:33 03:33 03:33 WBC RBC 2.86 L Hgb 9.7 L Hct 29.7 L MCV 103.8 H RDW 16.9 H Plt Count 127 L Lymph # (Auto) 0.8 L PT 25.4 H INR 2.3 H Chloride 93 L Carbon Dioxide 42 H* Anion Gap 6.0 L BUN 47 H Creatinine 1.9 H Uric Acid 16.0 H Phosphorus 2.6 L Direct Bilirubin 0.4 H Albumin 3.0 L Albumin (PEP) Globulin 5.0 H Globulin (PEP) Albumin/Globulin Ratio 0.6 L Albumin/Globulin (PEP) Gamma Globulins U Random Total Protein U Rowe Prot/Creat Ratio U Monoclonal Protein 04/22/18 04/20/18 04:00 13:30 WBC RBC Hgb Hct MCV RDW Plt Count Lymph # (Auto) PT INR Chloride Carbon Dioxide Anion Gap BUN Creatinine Uric Acid Phosphorus Direct Bilirubin Albumin Albumin (PEP) 2.81 L Globulin Globulin (PEP) 4.9 H Albumin/Globulin Ratio Albumin/Globulin (PEP) 0.6 L Gamma Globulins 2.99 H U Random Total Protein 29 H U Rowe Prot/Creat Ratio 367 H U Monoclonal Protein 3 A Meds: Medications Acetaminophen (Tylenol) 650 mg PO Q6HP PRN PRN Reason: PAIN/FEVER > 101 Hydrocodone Bitart/Acetaminophen ([place] 10/325mg) 2 tab PO Q6HP PRN PRN Reason: Pain Last Admin: 04/28/18 09:52 Dose: 2 tab Acetazolamide Sodium (Diamox) 500 mg IV DAILY [facility] Last Admin: 04/28/18 09:53 Dose: 500 mg Bumetanide (Bumex) 2 mg PO BIDD [facility] Last Admin: 04/28/18 10:38 Dose: 2 mg Digoxin (Lanoxin) 125 mcg PO Q48H [facility] Last Admin: 04/27/18 13:40 Dose: 125 mcg Docusate Sodium (Colace) 100 mg PO BID [facility] Last Admin: 04/28/18 09:53 Dose: 100 mg Heparin Sodium (Porcine) (Heparin Flush) 2 ml IV Q12 [facility] Last Admin: 04/28/18 09:53 Dose: 2 ml Metolazone (Zaroxolyn) 2.5 mg PO DAILY@0730 [facility] Last Admin: 04/28/18 09:52 Dose: 2.5 mg Naloxone HCl (Narcan) 0.1 mg IV Q2MIN PRN PRN Reason: Opiate Reversal Ondansetron HCl (Zofran Odt) 4 mg SL Q4HP PRN PRN Reason: Nausea And Vomiting Last Admin: 04/28/18 10:41 Dose: 4 mg Polyethylene Glycol (Miralax) 17 gm PO DAILY PRN PRN Reason: Constipation Last Admin: 04/28/18 10:37 Dose: 17 gm Potassium Chloride (Kdur) 20 meq PO QAMCC [facility] Last Admin: 04/28/18 09:53 Dose: 20 meq Senna (Senokot) 1 tab PO BID [facility] Last Admin: 04/28/18 10:03 Dose: Not Given Sodium Chloride (Saline Flush) 10 ml IV UD PRN PRN Reason: FLUSH Last Admin: 04/28/18 08:17 Dose: 10 ml Sodium Chloride (Saline Flush) 10 ml IV Q8 [facility] Last Admin: 04/28/18 07:00 Dose: 10 ml Warfarin Sodium (Coumadin Per Pharmacy) 1 order PO [facility] [place] Medical - PN: A/P - Time Spent With Patient Total time spent is greater than 50% in coordination of care (as documented) at patient's floor/unit and/or counseling patient: 15 - 24 minutes (1) Renal anasarca Status: Acute Assessment and plan: * Anasarca - Responding well to diuretics. Over 17,000 cc net negative fluid output. * Acute decompensated heart failure diastolic/ Acute cor pulmonale-on metolazone 2.5/Bumex 2 mg twice a day/IV Diamox. * Acute on chr renal failure/ Cardio renal syndrome-creatinine and downtrending from 2.5-1.9->1.8->1.9 * Contraction alkalosis secondary to diuresis. BID Diamox * Atrial fibrillation, s/p pacemaker- rate better controlled, on digoxin, prn IV metoprolol. on Coumadin with therapeutic INR. dig level is 0.9 today, on po digoxin 0.125 every other day, PRn IV metoprolol for rate control, * HTN- lisinopril and carvedilol on hold to keep blood pressure higher to promote diuresis * Obstructive sleep apnea- Continue cpap at night. * Bed bound status / Morbid obesity- Await SNF transfer for post hospitalization rehabilitation * Osteoarthritis.- prn pain meds. * chr wounds- wound cares following * Lymphdedema- on diuresis, will need wt loss * Pneumonia -status post antibiotics. Resolved * DVT on coumadin. INR 2.4 * FUll code Plan * Continue diuresis * Pre-existing medical condition management as above * Await SNF transfer Current Visit: Yes Medical - PN: Qual - VTE Deep Vein Thrombosis/Pulmonary Embolism Present on Admission: No
[2018-04-28] MEDS ORDERED: WARFARIN 5 MG TABLET PO ONE (14:00)
[2018-04-29] MEDS: 0.9 % SODIUM CHLORIDE 10 ML SYRINGE IV SCH ×3 (03:40→21:15)
[2018-04-29 05:35] LABS: Basophils # (Auto) 0 K/mcL (0.0-0.3); Basophils % (Auto) 0.2 % (0.0-2.0); Eosinophils # (Auto) 0.3 K/mcL (0.0-0.7); Eosinophils % (Auto) 5.8 % (0.0-7.0); Granulocytes % (Auto) 64.7 % (38.0-78.0); Lymphocytes # (Auto) 0.9 K/mcL (1.5-4.8); Lymphocytes % (Auto) 19.1 % (15.5-49.0); Mean Cell Volume 103.2 fL (80.0-100.0); Mean Corpuscular HGB Conc 32.9 g/dL (31.0-36.0); Monocytes # (Auto) 0.5 K/mcL (0.1-0.9); Monocytes % (Auto) 10.2 % (1.0-12.0); Platelet Count 135 K/mcL (140-440); RBC 2.82 M/mcL (4.50-5.90); Red Cell Distribution Width 16.7 % (11.5-14.5)
[2018-04-29 06:12] LABS: ALT/SGPT 7 U/l (0-40); Albumin 3.2 gm/dL (3.2-5.2); Albumin/Globulin Ratio 0.7 (1.0-2.3); Alkaline Phosphatase 116 U/L (39-117); Bilirubin,Direct 0.5 mg/dL (0.0-0.3); Blood Urea Nitrogen 46 mg/dl (6-20); Gamma Glutamyl Transpeptidase 50 U/L (8-61); Uric Acid 15.1 mg/dL (2.5-8.0)
[2018-04-29] MEDS: METOLAZONE 2.5 MG TABLET PO SCH (06:48)
--- NOTE | 2018-04-29 07:32 | Nephrology Progress Note ---
Subjective Patient information: Note initiated : 04/29/18 at 7:30 am Branden Espinosa is a [id number] male with chronic kidney disease stage 3, chronic anemia associated with chronic kidney disease, generalized edema, hypertension, morbid obesity, cor pulmonale, chronic atrial fibrillation on Coumadin (Echo on 12/03/17: LVEF 48%, mild global hypokinesis, right ventricle severely dilated, severe pulmonary hypertension), admitted on 04/20/18 for acute on chronic renal failure with fluid overload. Chief Complaint: Worsening leg edema Principal diagnosis: Acute on chronic renal failure with fluid overload Interval history: Waiting for placement Pertinent ROS: Weakness Shortness of breath Edema Wounds Objective - Vital Signs Vital signs: Vital Signs Temp Pulse Pulse Resp BP Pulse Ox 04/29/18 07:17 98.4 F 16 110/73 93 04/29/18 03:57 98.1 F 98 H 16 101/64 93 04/28/18 23:41 94 H 18 90 04/28/18 23:17 97.3 F 96 H 16 115/82 91 04/28/18 20:00 96 04/28/18 19:24 98.3 F 94 H 18 114/73 96 04/28/18 16:00 98.1 F 88 20 107/76 97 04/28/18 12:00 97.9 F 86 20 112/70 95 04/28/18 08:20 97.3 F 79 18 108/65 92 Intake and Output 04/28/18 04/29/18 04/29/18 21:59 05:59 13:59 Intake Total 680 / 680 180 / 180 Output Total 1625 / 1625 825 / 825 Balance -945 / -945 -645 / -645 Intake: Oral 680 / 680 180 / 180 Output: Void Amount 1625 / 1625 825 / 825 Other: Meal Dinner Percent of Meal Consumed 50% Feeding Ability Independent Stool Size Large Stool Color Brown Stool Consistency Soft # Bowel Movements 1 Intake & Output: Intake & Output 04/28/18 04/29/18 04/29/18 21:59 05:59 13:59 Intake Total 680 / 680 180 / 180 Output Total 1625 / 1625 825 / 825 Balance -945 / -945 -645 / -645 Intake: Oral 680 / 680 180 / 180 Output: Void Amount 1625 / 1625 825 / 825 Other: Meal Dinner Percent of Meal Consumed 50% Feeding Ability Independent Stool Size Large Stool Color Brown Stool Consistency Soft # Bowel Movements 1 - General Appearance General appearance: obese, chronically ill EENT: mucous membranes dry Neck: supple Respiratory: clear Cardiology: edema Gastrointestinal: no tenderness Integumentary: hyperpigmentation, chronic venous stasis Neurologic: no focal deficit Musculoskeletal: no deformities Psychiatric: mood/affect appropriate, cooperative - Lab 04/29/18 03:56 04/29/18 03:56 Most recent lab results Calcium 9.4 mg/dl (8.6-10.4) 04/29/18 03:56 Phosphorus 2.7 mg/dL (2.7-4.5) 04/29/18 03:56 Magnesium 2.1 mg/dL (1.6-2.5) 04/29/18 03:56 Assessment and Plan (1) Acute on chronic kidney failure New work up: Renal US on 12/31/17: Slightly echogenic renal parenchyma bilaterally which may be seen with chronic medical renal disease. Kidneys are otherwise anatomically normal. Labs on 04/20/18: Urinalysis yellow, hazy, pH 5.0, SG 1.013, protein negative , occult blood negative, random protein/creatinine ratio 240 mg/g creatinine and random urine sodium 49. Labs on 04/22/18: iPTH 98.7 Previous work up: Renal US on 12/31/17: Slightly echogenic renal parenchyma bilaterally which may be seen with chronic medical renal disease. Kidneys are otherwise anatomically normal. Labs on 12/31/17: Urinalysis yellow, hazy, pH 6.0, SG 1.012, protein negative , occult blood 0.03, no cellular casts, random protein/creatinine ratio 230 mg/ g creatinine and random microalbumin/creatinine ratio 19 mg/g creatinine. Treatment: Bumex 2 mg PO BIDD, Metolazone 2.5 mg PO QAM and Potassium Chloride 20 mEq PO QAM. Progress: Urine output: Adequate eGFR 43 Metabolic alkalosis on Acetazolamide 250 mg IV BID Fluid overload, improved Status: Acute Priority: Medium Qualifiers: Acute renal failure type: unspecified Chronic kidney disease stage: stage 3 (moderate) Qualified Code(s): N17.9 - Acute kidney failure, unspecified; N18.3 - Chronic kidney disease, stage 3 (moderate)
[2018-04-29] MEDS: acetaZOLAMIDE SOD 500 MG VIAL IV SCH ×2 (08:50→21:15)
[2018-04-29] MEDS: POTASSIUM CHLORIDE 20 MEQ TABLET PO SCH (08:50)
[2018-04-29] MEDS: BUMETANIDE 1 MG TABLET PO SCH ×2 (08:50→15:32)
[2018-04-29] MEDS: DOCUSATE SODIUM 100 MG CAPSULE PO SCH ×2 (08:50→21:15)
[2018-04-29] MEDS: SENNOSIDES 1 TABLET PO SCH ×2 (08:53→21:15)
[2018-04-29] MEDS: HYDROcodone/APAP 10/325MG TABLET PO PRN ×2 (09:16→15:33)
[2018-04-29] MEDS: DIGOXIN 125 MCG TABLET PO SCH (13:54)
[2018-04-29] MEDS ORDERED: WARFARIN 5 MG TABLET PO ONE (14:00)
[2018-04-29] MEDS: ONDANSETRON ODT 4 MG TABLET SL PRN (17:41)
--- NOTE | 2018-04-29 17:47 | Internal Med Progress Note ---
Medical - PN: Subj Patient information: Note initiated : 04/29/18 at 5:42 pm Service Date, if different from initiated Date: [] Patient: Branden Espinosa 57 y/o M admitted on 04/20/18 for Worsening Renal Failure. Chief Complaint: [] Interval history: Mr. Espinosa is a 57 year old Male with history of morbid obesity, bedbound, severe pulmonary hypertension, congestive heart failure, chronic kidney disease atrial fibrillation. The patient presents to the hospital for worsening shortness of breath and increased edema in his body. The patient was discharged from this facility I believe on 20 March. He was transferred to [facility] for placement of a pacemaker. His admission in March was also for increased swelling, worsening renal function and was treated as congestive heart failure. At that point in time the patient was supratherapeutic and his INR as well as supratherapeutic and his digoxin level. Digoxin was held. The patient eventually was transferred to a higher center for placement of a pacemaker because of significant cardiac pauses. He underwent the pacemaker placement and was discharged from the facility. According to the patient since his discharge from the tertiary facility the patient has been having increased swelling in his lower extremities. This has been progressively getting worse, this has been accompanied by shortness of breath. He denies any other acute complaints or concerns. He denies taking in too much fluid he is watching his salt intake and is not taking any NSAIDs. The patient denies any chest pain denies any dizziness he does have intermittent changes in vision. The patient was being followed by nephrology in the outpatient, his dose of diuretics were being changed however despite this the patient's edema kept getting worse and therefore the patient was asked to come to the emergency room for evaluation. In the ER the patient was noted to have worsening renal failure, elevated bnp, significant edema, cxr was clear, showed resolving pna, ekg showed poor voltate , afib, 04/21 Patient seen and examined, overnight was not able to sleep well, there was some malfunction in the bariatric bed which kept beeping. Patient tired this morning. He has extensive erythema on his back possible fungal rash. Patient has not had a bowel movement for the last few days wanting a stool softener. He notes his shortness of breath is somewhat better but still not able to lie flat, denies any chest pain nausea vomiting. Appreciate nephrology input. Patient remains on IV Lasix, negative balance since yesterday,-1550 04/22 Pt seen examined, tired today, did not sleep well, bp on the lower end of normal , neg 1500 yesterday Pt has no other complaints. had bm this after noon. nephrology following. labs stable. 04/23 Pt seen examined, slept well last night, denies any acute complaints, noted some chest discomfort yesterday, no chest tightness or pressure, just a flicker, Pt is already anticoagulated with coumadin and INR is therapeutic The patient Creat is trending down, creat is 2.2, He is diuresing well, Neg 5L since admission Plan to use chlorothiazide this afternoon, and then followed by lasix to see if we can improve diuresis 04/24 Pt seen examined, no acute overnight events, [place] [id number] since admission, still has significant edema Start on metolozone 5mg daily, continue IV lasix 80 bid add acetazolamide one dose today for worsening metabolic alkalosis. BP stable HR stable Dig level 1.2-1.3, pt has pacemaker, intermittently pacing on tele inr therapeutic PT feels cpap is not giving enough pressure, even at 14mmhg, have spoken with RT to look into the device. 04/24 [place] [id number] since admission, pt feels ok, still has significant dependent edema, I feel we can switch him to oral meds and see if he continues to diurese on same d/c iv lasix, start on po bumex, and metolozone 5mg before bumex and monitor urine output The patient bed was not zeroed in, and therefore the daily weights are not accurate, I am not using daily weight to monitor treatment at this time. 04/26-patient doing well. No overnight events. Over 1600 cc net negative in 24 hours. Lower dose of metolazone. Continue Diamox due to contraction alkalosis. Patient undergoing strengthening exercises. Case management arranging SNF transfer. No fever chills shortness of breath. 04/27 -patient doing well. No overnight events. No concerns per staff. No fever chills or shortness of breath. Diuresing well. Additional 2700 cc negative. Bicarbonate at 42 with contraction alkalosis on Diamox. Creatinine 1.8. Ongoing physical therapy. Nephrology on board. 04/28-patient doing better. Ongoing diuresis. No dyspnea/chest pain. Ongoing physical therapy. Continues to be bedridden due to morbid obesity. Anticipate SNF transfer. Case management and coordinating. Creatinine 1.9. Bicarbonate 44 on twice-daily Diamox. April 29-patient doing well. No overnight events. Awaiting SNF transfer. Additional 2000 cc net negative. Bicarbonate 45. On Diamox for contraction alkalosis. Creatinine 1.7. Ongoing physical therapy. No concerns per staff - Constitutional Vitals: Vital Signs Temp Pulse Resp BP Pulse Ox 97 F 76 18 110/73 98 04/29/18 16:00 04/29/18 16:00 04/29/18 16:00 04/29/18 16:00 04/29/18 16:00 Period Temp Pulse Resp BP Sys/Andujar Pulse Ox Last 24 Hr 97 F-98.4 F 76-106 16-18 101-157/64-82 90-98 Intake and Output 04/29/18 04/29/18 04/29/18 05:59 13:59 21:59 Intake Total 180 / 180 550 / 550 Output Total 825 / 825 1450 / 1450 450 / 450 Balance -645 / -645 -1450 / -1450 100 / 100 Weight 470 lb Patient Weight 04/30/18 05:59 Weight 470 lb Intake & Output: Intake & Output 04/29/18 04/29/18 04/29/18 05:59 13:59 21:59 Intake Total 180 / 180 550 / 550 Output Total 825 / 825 1450 / 1450 450 / 450 Balance -645 / -645 -1450 / -1450 100 / 100 Weight 470 lb Intake: Oral 180 / 180 550 / 550 Output: Void Amount 825 / 825 1450 / 1450 450 / 450 # of times incontinent of urine 0 / 0 Other: Meal Lunch Dinner Percent of Meal Consumed 100% 100% Feeding Ability Independent Independent # Voids 2 General appearance: no acute distress Exam: Morbidly obese nonlabored breathing No anxiety Lymphedema much improved Medical - PN: Obj Da - Labs CBC & Chem 7: 04/29/18 03:56 04/29/18 03:56 Labs: Abnormal Lab Results 04/29/18 04/29/18 04/29/18 03:56 03:56 03:56 WBC RBC 2.82 L Hgb 9.6 L Hct 29.1 L MCV 103.2 H RDW 16.7 H Plt Count 135 L Lymph # (Auto) 0.9 L PT 27.2 H INR 2.5 H Chloride 92 L Carbon Dioxide 45 H* Anion Gap 4.0 L BUN 46 H Creatinine 1.7 H Uric Acid 15.1 H Direct Bilirubin 0.5 H Albumin Globulin 4.9 H Albumin/Globulin Ratio 0.7 L U Random Total Protein U [place] Prot/Creat Ratio U Monoclonal Protein 04/28/18 04/28/18 04/28/18 08:16 07:04 07:04 WBC 4.3 L RBC 2.75 L Hgb 9.3 L Hct 28.5 L MCV 103.6 H RDW 16.6 H Plt Count 117 L Lymph # (Auto) 0.8 L PT 26.8 H INR 2.4 H Chloride 92 L Carbon Dioxide 44 H* Anion Gap 4.0 L BUN 46 H Creatinine 1.9 H Uric Acid 15.5 H Direct Bilirubin 0.4 H Albumin 3.0 L Globulin 4.9 H Albumin/Globulin Ratio 0.6 L U Random Total Protein U [place] Prot/Creat Ratio U Monoclonal Protein 04/27/18 04/27/18 04/27/18 03:43 03:43 03:43 WBC 4.1 L RBC 2.69 L Hgb 9.1 L Hct 27.9 L MCV 103.9 H RDW 17.2 H Plt Count 125 L Lymph # (Auto) 0.7 L PT 26.3 H INR 2.4 H Chloride 93 L Carbon Dioxide 42 H* Anion Gap 7.0 L BUN 47 H Creatinine 1.8 H Uric Acid 15.9 H Direct Bilirubin 0.4 H Albumin 2.9 L Globulin 4.6 H Albumin/Globulin Ratio 0.6 L U Random Total Protein U [place] Prot/Creat Ratio U Monoclonal Protein 04/20/18 13:30 WBC RBC Hgb Hct MCV RDW Plt Count Lymph # (Auto) PT INR Chloride Carbon Dioxide Anion Gap BUN Creatinine Uric Acid Direct Bilirubin Albumin Globulin Albumin/Globulin Ratio U Random Total Protein 29 H U [place] Prot/Creat Ratio 367 H U Monoclonal Protein 3 A Meds: Medications Acetaminophen (Tylenol) 650 mg PO Q6HP PRN PRN Reason: PAIN/FEVER > 101 Hydrocodone Bitart/Acetaminophen (Devine 10/325mg) 2 tab PO Q6HP PRN PRN Reason: Pain Last Admin: 04/29/18 15:33 Dose: 2 tab Acetazolamide Sodium (Diamox) 250 mg IV BID [facility] Last Admin: 04/29/18 08:50 Dose: 250 mg Bumetanide (Bumex) 2 mg PO BIDD [facility] Last Admin: 04/29/18 15:32 Dose: 2 mg Digoxin (Lanoxin) 125 mcg PO Q48H [facility] Last Admin: 04/29/18 13:54 Dose: 125 mcg Docusate Sodium (Colace) 100 mg PO BID [facility] Last Admin: 04/29/18 08:50 Dose: 100 mg Heparin Sodium (Porcine) (Heparin Flush) 2 ml IV Q12 [facility] Last Admin: 04/29/18 08:52 Dose: 2 ml Metolazone (Zaroxolyn) 2.5 mg PO DAILY@0730 [facility] Last Admin: 04/29/18 06:48 Dose: 2.5 mg Naloxone HCl (Narcan) 0.1 mg IV Q2MIN PRN PRN Reason: Opiate Reversal Ondansetron HCl (Zofran Odt) 4 mg SL Q4HP PRN PRN Reason: Nausea And Vomiting Last Admin: 04/29/18 17:41 Dose: 4 mg Polyethylene Glycol (Miralax) 17 gm PO DAILY PRN PRN Reason: Constipation Last Admin: 04/28/18 10:37 Dose: 17 gm Potassium Chloride (Kdur) 20 meq PO QAMCC [facility] Last Admin: 04/29/18 08:50 Dose: 20 meq Senna (Senokot) 1 tab PO BID [facility] Last Admin: 04/29/18 08:53 Dose: Not Given Sodium Chloride (Saline Flush) 10 ml IV UD PRN PRN Reason: FLUSH Last Admin: 04/28/18 08:17 Dose: 10 ml Sodium Chloride (Saline Flush) 10 ml IV Q8 [facility] Last Admin: 04/29/18 13:55 Dose: 10 ml Warfarin Sodium (Coumadin Per Pharmacy) 1 order PO UD [facility] Medical - PN: A/P - Time Spent With Patient Total time spent is greater than 50% in coordination of care (as documented) at patient's floor/unit and/or counseling patient: (1) Renal anasarca Status: Acute Assessment and plan: * Anasarca -continuing to diuresis well. Over 20 L net negative. * Acute decompensated heart failure diastolic/ Acute cor pulmonale-resolved. Continue diuresis on metolazone 2.5/Bumex 2 mg twice a day/IV Diamox. * Acute on chr renal failure/ Cardio renal syndrome-creatinine downtrending from 2.5-1.9->1.8->1.9->1.7 * Contraction alkalosis secondary to diuresis. Continue BID Diamox * Atrial fibrillation, s/p pacemaker- rate better controlled, on digoxin, prn IV metoprolol. on Coumadin with therapeutic INR. dig level is 0.9 today, on po digoxin 0.125 every other day, PRn IV metoprolol for rate control, * HTN- lisinopril and carvedilol on hold to keep blood pressure higher to promote diuresis * Obstructive sleep apnea- Continue cpap at night. * Bed bound status / Morbid obesity- Await SNF transfer for post hospitalization rehabilitation * Osteoarthritis.- prn pain meds. * [facility]- wound cares following * Lymphdedema- on diuresis, will need wt loss * Pneumonia -status post antibiotics. Resolved * DVT on coumadin. INR 2.4 * FUll code Plan * Await SNF transfer * Pre-existing medical condition management as above Current Visit: Yes Medical - PN: Qual - VTE Deep Vein Thrombosis/Pulmonary Embolism Present on Admission: No
[2018-04-30 05:15] LABS: Basophils # (Auto) 0 K/mcL (0.0-0.3); Basophils % (Auto) 0.4 % (0.0-2.0); Eosinophils # (Auto) 0.3 K/mcL (0.0-0.7); Eosinophils % (Auto) 4.9 % (0.0-7.0); Granulocytes % (Auto) 73.6 % (38.0-78.0); Lymphocytes # (Auto) 0.7 K/mcL (1.5-4.8); Lymphocytes % (Auto) 12.1 % (15.5-49.0); Mean Cell Volume 103.3 fL (80.0-100.0); Mean Corpuscular HGB Conc 32.4 g/dL (31.0-36.0); Mean Corpuscular Hemoglobin 33.5 pg (26.0-34.0); Monocytes # (Auto) 0.5 K/mcL (0.1-0.9); Platelet Count 141 K/mcL (140-440); RBC 2.97 M/mcL (4.50-5.90); Red Cell Distribution Width 16.8 % (11.5-14.5)
[2018-04-30 05:33] LABS: ALT/SGPT 7 U/l (0-40); Albumin 3.2 gm/dL (3.2-5.2); Albumin/Globulin Ratio 0.6 (1.0-2.3); Alkaline Phosphatase 124 U/L (39-117); Bilirubin,Direct 0.4 mg/dL (0.0-0.3); Blood Urea Nitrogen 47 mg/dl (6-20); Gamma Glutamyl Transpeptidase 56 U/L (8-61)
--- NOTE | 2018-04-30 07:59 | Nephrology Progress Note ---
Subjective Patient information: Note initiated : 04/30/18 at 7:56 am Branden Espinosa is a [id number] male with chronic kidney disease stage 3, chronic anemia associated with chronic kidney disease, generalized edema, hypertension, morbid obesity, cor pulmonale, chronic atrial fibrillation on Coumadin (Echo on 12/03/17: LVEF 48%, mild global hypokinesis, right ventricle severely dilated, severe pulmonary hypertension), admitted on 04/20/18 for acute on chronic renal failure with fluid overload. Chief Complaint: Worsening leg edema Principal diagnosis: Acute on chronic renal failure with fluid overload Pertinent ROS: Weakness Shortness of breath Edema Wounds Objective - Vital Signs Vital signs: Vital Signs Temp Pulse Pulse Resp BP Pulse Ox 04/30/18 07:30 98.9 F 18 109/74 93 04/30/18 04:00 98.8 F 98 H 18 113/75 94 04/29/18 23:32 97.5 F 85 14 107/66 93 04/29/18 20:16 96 H 18 94 04/29/18 19:24 98 F 92 H 16 103/65 97 04/29/18 16:00 97 F 76 18 110/73 98 04/29/18 13:52 98.3 F 106 H 18 157/68 96 Intake and Output 04/29/18 04/30/18 04/30/18 21:59 05:59 13:59 Intake Total 710 / 710 180 / 180 Output Total 975 / 975 450 / 450 400 / 400 Balance -265 / -265 -270 / -270 -400 / -400 Intake: Oral 710 / 710 180 / 180 Output: Void Amount 975 / 975 450 / 450 400 / 400 Other: Meal Dinner Percent of Meal Consumed 100% Feeding Ability Independent Intake & Output: Intake & Output 04/29/18 04/30/18 04/30/18 21:59 05:59 13:59 Intake Total 710 / 710 180 / 180 Output Total 975 / 975 450 / 450 400 / 400 Balance -265 / -265 -270 / -270 -400 / -400 Intake: Oral 710 / 710 180 / 180 Output: Void Amount 975 / 975 450 / 450 400 / 400 Other: Meal Dinner Percent of Meal Consumed 100% Feeding Ability Independent - General Appearance General appearance: obese, chronically ill EENT: mucous membranes moist Neck: supple Respiratory: clear Cardiology: edema Gastrointestinal: no tenderness Integumentary: hyperpigmentation, chronic venous stasis Neurologic: no focal deficit Musculoskeletal: no deformities Psychiatric: mood/affect appropriate, cooperative - Lab 04/30/18 04:00 04/30/18 04:00 Most recent lab results Calcium 9.5 mg/dl (8.6-10.4) 04/30/18 04:00 Phosphorus 2.5 mg/dL (2.7-4.5) L 04/30/18 04:00 Magnesium 2.1 mg/dL (1.6-2.5) 04/30/18 04:00 Assessment and Plan (1) Acute on chronic kidney failure Renal US on 12/31/17: Slightly echogenic renal parenchyma bilaterally which may be seen with chronic medical renal disease. Kidneys are otherwise anatomically normal. Progress: Urine output: Adequate eGFR ~40 at baseline Status: Acute Priority: Medium Qualifiers: Acute renal failure type: unspecified Chronic kidney disease stage: stage 3 (moderate) Qualified Code(s): N17.9 - Acute kidney failure, unspecified; N18.3 - Chronic kidney disease, stage 3 (moderate) (2) Secondary hyperparathyroidism of renal origin Work up: Labs on 02/23/18: Vitamin D Total (25-Hydroxy) 18 Labs on 04/22/18: iPTH 98.7 Plan: Cholecalciferol 2,000 unit daily ordered Status: Chronic Priority: Medium (3) Persistent proteinuria Labs on 04/20/18: Urinalysis yellow, hazy, pH 5.0, SG 1.013, protein negative, occult blood negative, random protein/creatinine ratio 240 mg/g creatinine and random urine sodium 49. Labs on 12/31/17: Urinalysis yellow, hazy, pH 6.0, SG 1.012, protein negative, occult blood 0.03, no cellular casts, random protein/creatinine ratio 230 mg/g creatinine and random microalbumin/creatinine ratio 19 mg/g creatinine. New work up: UPEP showed monoclonal proteins SPEP was consistent with chronic inflammation Plan: Serum PATRIZIA and free light chains ordered Status: Chronic Priority: Medium (4) Metabolic alkalosis Metabolic alkalosis associated with diuresis on Acetazolamide 250 mg IV BID Status: Chronic Priority: Medium (5) Other fluid overload Fluid overload associated with chronic cor pulmonale (Echo on 12/03/17: LVEF 48% , mild global hypokinesis, right ventricle severely dilated, severe pulmonary hypertension). Treatment: Bumex 2 mg PO BIDD, Metolazone 2.5 mg PO QAM and Potassium Chloride 20 mEq PO QAM. I recommended adequate treatment of obstructive sleep apnea. He stated he is not using his new CPAP because it turns of for air leak. He is still using the old one but does not think pressures are enough. I recommended calling the service for evaluation. Status: Chronic Priority: Medium (6) Anemia in stage 3 chronic kidney disease No iron deficiency No need for erythropoietin Status: Chronic Priority: Medium
[2018-04-30] MEDS: METOLAZONE 2.5 MG TABLET PO SCH (08:22)
[2018-04-30] MEDS: HYDROcodone/APAP 10/325MG TABLET PO PRN ×2 (08:54→15:23)
[2018-04-30] MEDS: BUMETANIDE 1 MG TABLET PO SCH ×2 (09:59→17:12)
[2018-04-30] MEDS: POTASSIUM CHLORIDE 20 MEQ TABLET PO SCH (09:59)
[2018-04-30] MEDS: SENNOSIDES 1 TABLET PO SCH ×2 (09:59→20:20)
[2018-04-30] MEDS: DOCUSATE SODIUM 100 MG CAPSULE PO SCH ×2 (09:59→20:20)
[2018-04-30] MEDS: 0.9 % SODIUM CHLORIDE 10 ML SYRINGE IV SCH ×2 (09:59→20:20)
--- NOTE | 2018-04-30 10:46 | Internal Med Progress Note ---
Medical - PN: Subj Patient information: Note initiated : 04/30/18 at 10:42 am Service Date, if different from initiated Date: [] Patient: Branden Espinosa 57 y/o M admitted on 04/20/18 for Worsening Renal Failure. Chief Complaint: [] Interval history: Mr. Espinosa is a 57 year old Male with history of morbid obesity, bedbound, severe pulmonary hypertension, congestive heart failure, chronic kidney disease atrial fibrillation. The patient presents to the hospital for worsening shortness of breath and increased edema in his body. The patient was discharged from this facility I believe on 20 March. He was transferred to [facility] for placement of a pacemaker. His admission in March was also for increased swelling, worsening renal function and was treated as congestive heart failure. At that point in time the patient was supratherapeutic and his INR as well as supratherapeutic and his digoxin level. Digoxin was held. The patient eventually was transferred to a higher center for placement of a pacemaker because of significant cardiac pauses. He underwent the pacemaker placement and was discharged from the facility. According to the patient since his discharge from the tertiary facility the patient has been having increased swelling in his lower extremities. This has been progressively getting worse, this has been accompanied by shortness of breath. He denies any other acute complaints or concerns. He denies taking in too much fluid he is watching his salt intake and is not taking any NSAIDs. The patient denies any chest pain denies any dizziness he does have intermittent changes in vision. The patient was being followed by nephrology in the outpatient, his dose of diuretics were being changed however despite this the patient's edema kept getting worse and therefore the patient was asked to come to the emergency room for evaluation. In the ER the patient was noted to have worsening renal failure, elevated bnp, significant edema, cxr was clear, showed resolving pna, ekg showed poor voltate , afib, 04/21 Patient seen and examined, overnight was not able to sleep well, there was some malfunction in the bariatric bed which kept beeping. Patient tired this morning. He has extensive erythema on his back possible fungal rash. Patient has not had a bowel movement for the last few days wanting a stool softener. He notes his shortness of breath is somewhat better but still not able to lie flat, denies any chest pain nausea vomiting. Appreciate nephrology input. Patient remains on IV Lasix, negative balance since yesterday,-1550 04/22 Pt seen examined, tired today, did not sleep well, bp on the lower end of normal , neg 1500 yesterday Pt has no other complaints. had bm this after noon. nephrology following. labs stable. 04/23 Pt seen examined, slept well last night, denies any acute complaints, noted some chest discomfort yesterday, no chest tightness or pressure, just a flicker, Pt is already anticoagulated with coumadin and INR is therapeutic The patient Creat is trending down, creat is 2.2, He is diuresing well, Neg 5L since admission Plan to use chlorothiazide this afternoon, and then followed by lasix to see if we can improve diuresis 04/24 Pt seen examined, no acute overnight events, [place] [id number] since admission, still has significant edema Start on metolozone 5mg daily, continue IV lasix 80 bid add acetazolamide one dose today for worsening metabolic alkalosis. BP stable HR stable Dig level 1.2-1.3, pt has pacemaker, intermittently pacing on tele inr therapeutic PT feels cpap is not giving enough pressure, even at 14mmhg, have spoken with RT to look into the device. 04/24 [place] [id number] since admission, pt feels ok, still has significant dependent edema, I feel we can switch him to oral meds and see if he continues to diurese on same d/c iv lasix, start on po bumex, and metolozone 5mg before bumex and monitor urine output The patient bed was not zeroed in, and therefore the daily weights are not accurate, I am not using daily weight to monitor treatment at this time. 04/26-patient doing well. No overnight events. Over 1600 cc net negative in 24 hours. Lower dose of metolazone. Continue Diamox due to contraction alkalosis. Patient undergoing strengthening exercises. Case management arranging SNF transfer. No fever chills shortness of breath. 04/27 -patient doing well. No overnight events. No concerns per staff. No fever chills or shortness of breath. Diuresing well. Additional 2700 cc negative. Bicarbonate at 42 with contraction alkalosis on Diamox. Creatinine 1.8. Ongoing physical therapy. Nephrology on board. 04/28-patient doing better. Ongoing diuresis. No dyspnea/chest pain. Ongoing physical therapy. Continues to be bedridden due to morbid obesity. Anticipate SNF transfer. Case management and coordinating. Creatinine 1.9. Bicarbonate 44 on twice-daily Diamox. April 29-patient doing well. No overnight events. Awaiting SNF transfer. Additional 2000 cc net negative. Bicarbonate 45. On Diamox for contraction alkalosis. Creatinine 1.7. Ongoing physical therapy. No concerns per staff 04/30-patient doing well. No overnight events. Diuresis additional 2400 cc. On combination diuretics. Electrolytes stable. Ongoing physical therapy. Case management coordinating discharge planning. Likely likely stay inpatient through the weekend until placement - Constitutional Vitals: Vital Signs Temp Pulse Resp BP Pulse Ox 98.9 F 98 H 18 109/74 93 04/30/18 07:30 04/30/18 04:00 04/30/18 07:30 04/30/18 07:30 04/30/18 07:30 Period Temp Pulse Resp BP Sys/Andujar Pulse Ox Last 24 Hr 97 F-98.9 F 76-106 14-18 103-157/65-75 93-98 Intake and Output 04/29/18 04/30/18 04/30/18 21:59 05:59 13:59 Intake Total 710 / 710 180 / 180 Output Total 975 / 975 450 / 450 700 / 700 Balance -265 / -265 -270 / -270 -700 / -700 Intake & Output: Intake & Output 04/29/18 04/30/18 04/30/18 21:59 05:59 13:59 Intake Total 710 / 710 180 / 180 Output Total 975 / 975 450 / 450 700 / 700 Balance -265 / -265 -270 / -270 -700 / -700 Intake: Oral 710 / 710 180 / 180 Output: Void Amount 975 / 975 450 / 450 700 / 700 Other: Meal Dinner Percent of Meal Consumed 100% Feeding Ability Independent General appearance: morbidly obese - Head Additional comments: Alert oriented nonlabored breathing Lymphedema improving Nondistended abdomen No anxiety Medical - PN: Obj Da - Labs CBC & Chem 7: 04/30/18 04:00 04/30/18 04:00 Labs: Abnormal Lab Results 04/30/18 04/30/18 04/30/18 04:00 04:00 04:00 WBC RBC 2.97 L Hgb 9.9 L Hct 30.7 L MCV 103.3 H RDW 16.8 H Plt Count Lymph % (Auto) 12.1 L Lymph # (Auto) 0.7 L PT 31.4 H INR 3.0 H Chloride 89 L Carbon Dioxide 43 H* Anion Gap 7.0 L BUN 47 H Creatinine 1.9 H Uric Acid 15.0 H Phosphorus 2.5 L Direct Bilirubin 0.4 H Alkaline Phosphatase 124 H Albumin Globulin 5.1 H Albumin/Globulin Ratio 0.6 L 04/29/18 04/29/18 04/29/18 03:56 03:56 03:56 WBC RBC 2.82 L Hgb 9.6 L Hct 29.1 L MCV 103.2 H RDW 16.7 H Plt Count 135 L Lymph % (Auto) Lymph # (Auto) 0.9 L PT 27.2 H INR 2.5 H Chloride 92 L Carbon Dioxide 45 H* Anion Gap 4.0 L BUN 46 H Creatinine 1.7 H Uric Acid 15.1 H Phosphorus Direct Bilirubin 0.5 H Alkaline Phosphatase Albumin Globulin 4.9 H Albumin/Globulin Ratio 0.7 L 04/28/18 04/28/18 04/28/18 08:16 07:04 07:04 WBC 4.3 L RBC 2.75 L Hgb 9.3 L Hct 28.5 L MCV 103.6 H RDW 16.6 H Plt Count 117 L Lymph % (Auto) Lymph # (Auto) 0.8 L PT 26.8 H INR 2.4 H Chloride 92 L Carbon Dioxide 44 H* Anion Gap 4.0 L BUN 46 H Creatinine 1.9 H Uric Acid 15.5 H Phosphorus Direct Bilirubin 0.4 H Alkaline Phosphatase Albumin 3.0 L Globulin 4.9 H Albumin/Globulin Ratio 0.6 L Meds: Medications Acetaminophen (Tylenol) 650 mg PO Q6HP PRN PRN Reason: PAIN/FEVER > 101 Hydrocodone Bitart/Acetaminophen ([place] 10/325mg) 2 tab PO Q6HP PRN PRN Reason: Pain Last Admin: 04/30/18 08:54 Dose: 2 tab Acetazolamide Sodium (Diamox) 250 mg IV BID [facility] Last Admin: 04/29/18 21:15 Dose: 250 mg Bumetanide (Bumex) 2 mg PO BIDD [facility] Last Admin: 04/30/18 09:59 Dose: 2 mg Digoxin (Lanoxin) 125 mcg PO Q48H [facility] Last Admin: 04/29/18 13:54 Dose: 125 mcg Docusate Sodium (Colace) 100 mg PO BID [facility] Last Admin: 04/30/18 09:59 Dose: 100 mg Heparin Sodium (Porcine) (Heparin Flush) 2 ml IV Q12 [facility] Last Admin: 04/30/18 09:59 Dose: 2 ml Metolazone (Zaroxolyn) 2.5 mg PO DAILY@0730 [facility] Last Admin: 04/30/18 08:22 Dose: 2.5 mg Naloxone HCl (Narcan) 0.1 mg IV Q2MIN PRN PRN Reason: Opiate Reversal Ondansetron HCl (Zofran Odt) 4 mg SL Q4HP PRN PRN Reason: Nausea And Vomiting Last Admin: 04/29/18 17:41 Dose: 4 mg Polyethylene Glycol (Miralax) 17 gm PO DAILY PRN PRN Reason: Constipation Last Admin: 04/28/18 10:37 Dose: 17 gm Potassium Chloride (Kdur) 20 meq PO QAMCC [facility] Last Admin: 04/30/18 09:59 Dose: 20 meq Senna (Senokot) 1 tab PO BID [facility] Last Admin: 04/30/18 09:59 Dose: 1 tab Sodium Chloride (Saline Flush) 10 ml IV UD PRN PRN Reason: FLUSH Last Admin: 04/28/18 08:17 Dose: 10 ml Sodium Chloride (Saline Flush) 10 ml IV Q12 [facility] Last Admin: 04/30/18 09:59 Dose: 10 ml Vitamin D (Vitamin D3) 2,000 unit PO DAILY [facility] Warfarin Sodium (Coumadin Per Pharmacy) 1 order PO UD [facility] Medical - PN: A/P - Time Spent With Patient Total time spent is greater than 50% in coordination of care (as documented) at patient's floor/unit and/or counseling patient: 25 - 35 minutes (1) Renal anasarca Status: Acute Assessment and plan: * Anasarca -continuing to diuresis well. Over 22 L net negative. * Contraction alkalosis secondary to diuresis. Continue BID Diamox * Acute decompensated heart failure diastolic/ Acute cor pulmonale-resolved. * Acute on chr renal failure/ Cardio renal syndrome-creatinine downtrending from 2.5-1.9->1.8->1.9->1.7->1.9. Nephrology on board * Atrial fibrillation, s/p pacemaker- rate controlled, on digoxin, prn IV metoprolol. Continue Coumadin * HTN- continue holding lisinopril and carvedilol to keep blood pressure higher to promote diuresis * Obstructive sleep apnea- Continue cpap at night. * Bed bound status / Morbid obesity- Await SNF transfer for post hospitalization rehabilitation * Osteoarthritis.- prn pain meds. * chr wounds uterus lower extremity wounds and stasis changes- wound cares following * DVT on coumadin. * FUll code Plan * Await SNF transfer coordination by case management * Continue gentle diuresis * Pre-existing medical condition management as above Current Visit: Yes Medical - PN: Qual - VTE Deep Vein Thrombosis/Pulmonary Embolism Present on Admission: No
[2018-04-30] MEDS: acetaZOLAMIDE SOD 500 MG VIAL IV SCH ×2 (10:51→20:20)
[2018-04-30] MEDS: ONDANSETRON ODT 4 MG TABLET SL PRN ×2 (13:16→17:12)
[2018-04-30] MEDS: VITAMIN D3 1,000 UNIT TABLET PO SCH (15:23)
[2018-05-01 04:54] LABS: Basophils # (Auto) 0 K/mcL (0.0-0.3); Basophils % (Auto) 0.5 % (0.0-2.0); Eosinophils # (Auto) 0.3 K/mcL (0.0-0.7); Eosinophils % (Auto) 5.6 % (0.0-7.0); Lymphocytes # (Auto) 0.8 K/mcL (1.5-4.8); Lymphocytes % (Auto) 17.2 % (15.5-49.0); Mean Cell Volume 102.8 fL (80.0-100.0); Mean Corpuscular HGB Conc 32.2 g/dL (31.0-36.0); Mean Corpuscular Hemoglobin 33.1 pg (26.0-34.0); Monocytes # (Auto) 0.4 K/mcL (0.1-0.9); Monocytes % (Auto) 9.7 % (1.0-12.0); Platelet Count 129 K/mcL (140-440); RBC 2.74 M/mcL (4.50-5.90); Red Cell Distribution Width 16.5 % (11.5-14.5)
[2018-05-01 05:16] LABS: ALT/SGPT 6 U/l (0-40); Albumin/Globulin Ratio 0.7 (1.0-2.3); Alkaline Phosphatase 117 U/L (39-117); Bilirubin,Direct 0.4 mg/dL (0.0-0.3); Blood Urea Nitrogen 50 mg/dl (6-20); Gamma Glutamyl Transpeptidase 51 U/L (8-61); Uric Acid 14.7 mg/dL (2.5-8.0)
[2018-05-01] MEDS: METOLAZONE 2.5 MG TABLET PO SCH (08:21)
[2018-05-01] MEDS: HYDROcodone/APAP 10/325MG TABLET PO PRN ×2 (08:21→14:26)
[2018-05-01] MEDS: SENNOSIDES 1 TABLET PO SCH ×2 (09:23→20:58)
[2018-05-01] MEDS: POTASSIUM CHLORIDE 20 MEQ TABLET PO SCH (09:23)
[2018-05-01] MEDS: BUMETANIDE 1 MG TABLET PO SCH ×2 (09:23→17:22)
[2018-05-01] MEDS: VITAMIN D3 1,000 UNIT TABLET PO SCH (09:23)
[2018-05-01] MEDS: acetaZOLAMIDE SOD 500 MG VIAL IV SCH ×2 (09:24→20:58)
[2018-05-01] MEDS: DOCUSATE SODIUM 100 MG CAPSULE PO SCH ×2 (09:24→20:58)
[2018-05-01] MEDS: 0.9 % SODIUM CHLORIDE 10 ML SYRINGE IV SCH ×2 (09:24→20:58)
--- NOTE | 2018-05-01 10:22 | Nephrology Progress Note ---
Subjective Patient information: Note initiated : 05/01/18 at 10:20 am Branden Espinosa is a 81-eh[age]-kln male with chronic kidney disease stage 3, chronic anemia associated with chronic kidney disease, generalized edema, hypertension, morbid obesity, cor pulmonale, chronic atrial fibrillation on Coumadin (Echo on 12/03/17: LVEF 48%, mild global hypokinesis, right ventricle severely dilated, severe pulmonary hypertension), admitted on 04/20/18 for acute on chronic renal failure with fluid overload. Chief Complaint: Worsening leg edema Principal diagnosis: Acute on chronic renal failure with fluid overload Pertinent ROS: Weakness Shortness of breath Edema Wounds Objective - Vital Signs Vital signs: Vital Signs Temp Pulse Resp BP Pulse Ox 05/01/18 08:34 98 05/01/18 08:25 97.9 F 95 H 16 114/75 98 05/01/18 04:00 97.0 F 91 H 16 99/66 91 05/01/18 03:55 88 89 L 04/30/18 23:59 99 04/30/18 23:57 98.1 F 120 H 18 92/68 86 L 04/30/18 19:24 98.3 F 80 18 102/70 96 04/30/18 15:27 98.6 F 20 102/65 99 04/30/18 11:43 98.6 F 20 112/78 93 Intake and Output 04/30/18 05/01/18 05/01/18 21:59 05:59 13:59 Intake Total 400 / 400 225 / 225 Output Total 975 / 975 750 / 750 Balance -575 / -575 -525 / -525 Intake: Oral 225 / 225 GI Tube Flush 400 / 400 Output: Void Amount 975 / 975 750 / 750 Other: Meal Dinner Percent of Meal Consumed 75% Weight 470 lb Intake & Output: Intake & Output 04/30/18 05/01/18 05/01/18 21:59 05:59 13:59 Intake Total 400 / 400 225 / 225 Output Total 975 / 975 750 / 750 Balance -575 / -575 -525 / -525 Weight 470 lb Intake: Oral 225 / 225 GI Tube Flush 400 / 400 Output: Void Amount 975 / 975 750 / 750 Other: Meal Dinner Percent of Meal Consumed 75% - General Appearance General appearance: obese, frail EENT: mucous membranes dry Neck: supple Respiratory: rales Cardiology: edema Gastrointestinal: no tenderness Integumentary: hyperpigmentation, chronic venous stasis Neurologic: no focal deficit, alert and oriented x3 Musculoskeletal: no deformities Psychiatric: mood/affect appropriate, cooperative - Lab 05/01/18 03:55 05/01/18 03:55 Most recent lab results Calcium 9.0 mg/dl (8.6-10.4) 05/01/18 03:55 Phosphorus 2.6 mg/dL (2.7-4.5) L 05/01/18 03:55 Magnesium 2.1 mg/dL (1.6-2.5) 05/01/18 03:55 Assessment and Plan (1) Acute on chronic kidney failure Renal US on 12/31/17: Slightly echogenic renal parenchyma bilaterally which may be seen with chronic medical renal disease. Kidneys are otherwise anatomically normal. Progress: Urine output: Adequate eGFR ~40 at baseline Status: Acute Priority: Medium Qualifiers: Acute renal failure type: unspecified Chronic kidney disease stage: stage 3 (moderate) Qualified Code(s): N17.9 - Acute kidney failure, unspecified; N18.3 - Chronic kidney disease, stage 3 (moderate) (2) Secondary hyperparathyroidism of renal origin Work up: Labs on 02/23/18: Vitamin D Total (25-Hydroxy) 18 Labs on 04/22/18: iPTH 98.7 Plan: Cholecalciferol 2,000 unit daily started Status: Chronic Priority: Medium (3) Persistent proteinuria Labs on 04/20/18: Urinalysis yellow, hazy, pH 5.0, SG 1.013, protein negative, occult blood negative, random protein/creatinine ratio 240 mg/g creatinine and random urine sodium 49. Labs on 12/31/17: Urinalysis yellow, hazy, pH 6.0, SG 1.012, protein negative, occult blood 0.03, no cellular casts, random protein/creatinine ratio 230 mg/g creatinine and random microalbumin/creatinine ratio 19 mg/g creatinine. New work up: UPEP showed monoclonal proteins SPEP was consistent with chronic inflammation Plan: Serum PATRIZIA and free light chains ordered Status: Chronic Priority: Medium (4) Metabolic alkalosis Metabolic alkalosis associated with diuresis on Acetazolamide 250 mg IV BID Status: Chronic Priority: Medium (5) Other fluid overload Fluid overload associated with chronic cor pulmonale (Echo on 12/03/17: LVEF 48% , mild global hypokinesis, right ventricle severely dilated, severe pulmonary hypertension). Treatment: Bumex 2 mg PO BIDD, Metolazone 2.5 mg PO QAM and Potassium Chloride 20 mEq PO QAM. I recommended adequate treatment of obstructive sleep apnea. He stated he is not using his new CPAP because it turns of for air leak. He is still using the old one but does not think pressures are enough. I recommended calling the service for evaluation. Status: Chronic Priority: Medium (6) Anemia in stage 3 chronic kidney disease No iron deficiency No need for erythropoietin Status: Chronic Priority: Medium
--- NOTE | 2018-05-01 11:08 | Internal Med Progress Note ---
Medical - PN: Subj Patient information: Note initiated : 05/01/18 at 11:06 am Service Date, if different from initiated Date: [] Patient: Branden Espinosa 57 y/o M admitted on 04/20/18 for Worsening Renal Failure. Chief Complaint: [] Interval history: Mr. Espinosa is a 57 year old Male with history of morbid obesity, bedbound, severe pulmonary hypertension, congestive heart failure, chronic kidney disease atrial fibrillation. The patient presents to the hospital for worsening shortness of breath and increased edema in his body. The patient was discharged from this facility I believe on 20 March. He was transferred to [facility] for placement of a pacemaker. His admission in March was also for increased swelling, worsening renal function and was treated as congestive heart failure. At that point in time the patient was supratherapeutic and his INR as well as supratherapeutic and his digoxin level. Digoxin was held. The patient eventually was transferred to a higher center for placement of a pacemaker because of significant cardiac pauses. He underwent the pacemaker placement and was discharged from the facility. According to the patient since his discharge from the tertiary facility the patient has been having increased swelling in his lower extremities. This has been progressively getting worse, this has been accompanied by shortness of breath. He denies any other acute complaints or concerns. He denies taking in too much fluid he is watching his salt intake and is not taking any NSAIDs. The patient denies any chest pain denies any dizziness he does have intermittent changes in vision. The patient was being followed by nephrology in the outpatient, his dose of diuretics were being changed however despite this the patient's edema kept getting worse and therefore the patient was asked to come to the emergency room for evaluation. In the ER the patient was noted to have worsening renal failure, elevated bnp, significant edema, cxr was clear, showed resolving pna, ekg showed poor voltate , afib, 04/21 Patient seen and examined, overnight was not able to sleep well, there was some malfunction in the bariatric bed which kept beeping. Patient tired this morning. He has extensive erythema on his back possible fungal rash. Patient has not had a bowel movement for the last few days wanting a stool softener. He notes his shortness of breath is somewhat better but still not able to lie flat, denies any chest pain nausea vomiting. Appreciate nephrology input. Patient remains on IV Lasix, negative balance since yesterday,-1550 04/22 Pt seen examined, tired today, did not sleep well, bp on the lower end of normal , neg 1500 yesterday Pt has no other complaints. had bm this after noon. nephrology following. labs stable. 04/23 Pt seen examined, slept well last night, denies any acute complaints, noted some chest discomfort yesterday, no chest tightness or pressure, just a flicker, Pt is already anticoagulated with coumadin and INR is therapeutic The patient Creat is trending down, creat is 2.2, He is diuresing well, Neg 5L since admission Plan to use chlorothiazide this afternoon, and then followed by lasix to see if we can improve diuresis 04/24 Pt seen examined, no acute overnight events, [place] [id number] since admission, still has significant edema Start on metolozone 5mg daily, continue IV lasix 80 bid add acetazolamide one dose today for worsening metabolic alkalosis. BP stable HR stable Dig level 1.2-1.3, pt has pacemaker, intermittently pacing on tele inr therapeutic PT feels cpap is not giving enough pressure, even at 14mmhg, have spoken with RT to look into the device. 04/24 [place] [id number] since admission, pt feels ok, still has significant dependent edema, I feel we can switch him to oral meds and see if he continues to diurese on same d/c iv lasix, start on po bumex, and metolozone 5mg before bumex and monitor urine output The patient bed was not zeroed in, and therefore the daily weights are not accurate, I am not using daily weight to monitor treatment at this time. 04/26-patient doing well. No overnight events. Over 1600 cc net negative in 24 hours. Lower dose of metolazone. Continue Diamox due to contraction alkalosis. Patient undergoing strengthening exercises. Case management arranging SNF transfer. No fever chills shortness of breath. 04/27 -patient doing well. No overnight events. No concerns per staff. No fever chills or shortness of breath. Diuresing well. Additional 2700 cc negative. Bicarbonate at 42 with contraction alkalosis on Diamox. Creatinine 1.8. Ongoing physical therapy. Nephrology on board. 04/28-patient doing better. Ongoing diuresis. No dyspnea/chest pain. Ongoing physical therapy. Continues to be bedridden due to morbid obesity. Anticipate SNF transfer. Case management and coordinating. Creatinine 1.9. Bicarbonate 44 on twice-daily Diamox. April 29-patient doing well. No overnight events. Awaiting SNF transfer. Additional 2000 cc net negative. Bicarbonate 45. On Diamox for contraction alkalosis. Creatinine 1.7. Ongoing physical therapy. No concerns per staff 04/30-patient doing well. No overnight events. Diuresis additional 2400 cc. On combination diuretics. Electrolytes stable. Ongoing physical therapy. Case management coordinating discharge planning. Likely likely stay inpatient through the weekend until placement 05/01-patient doing well. No overnight events. No concerns per staff. No fever chills diuresing well. Only 6/metolazone/acetazolamide. Proteinuria currently being managed by nephrology. Electrophoresis/free light chains ordered per nephrology. Case management arranging SNF transfer. Anticipate additional 48 hours until placement can be arranged. - Constitutional Vitals: Vital Signs Temp Pulse Resp BP Pulse Ox 97.9 F 95 H 16 114/75 98 05/01/18 08:25 05/01/18 08:25 05/01/18 08:25 05/01/18 08:25 05/01/18 08:34 Period Temp Pulse Resp BP Sys/Andujar Pulse Ox Last 24 Hr 97.0 F-98.6 F 80-120 16-20 92-114/65-78 86-99 Intake and Output 04/30/18 05/01/18 05/01/18 21:59 05:59 13:59 Intake Total 400 / 400 225 / 225 Output Total 975 / 975 750 / 750 Balance -575 / -575 -525 / -525 Weight 470 lb Intake & Output: Intake & Output 04/30/18 05/01/18 05/01/18 21:59 05:59 13:59 Intake Total 400 / 400 225 / 225 Output Total 975 / 975 750 / 750 Balance -575 / -575 -525 / -525 Weight 470 lb Intake: Oral 225 / 225 GI Tube Flush 400 / 400 Output: Void Amount 975 / 975 750 / 750 Other: Meal Dinner Percent of Meal Consumed 75% General appearance: no acute distress Exam: Morbidly obese nonlabored breathing nondistended abdomen Lymphedema improving No anxiety Medical - PN: Obj Da - Labs CBC & Chem 7: 05/01/18 03:55 05/01/18 03:55 Labs: Abnormal Lab Results 05/01/18 05/01/18 05/01/18 03:55 03:55 03:55 RBC 2.74 L Hgb 9.1 L Hct 28.2 L MCV 102.8 H RDW 16.5 H Plt Count 129 L Lymph % (Auto) Lymph # (Auto) 0.8 L PT 31.0 H INR 2.9 H Chloride 91 L Carbon Dioxide 43 H* Anion Gap 6.0 L BUN 50 H Creatinine 2.0 H Uric Acid 14.7 H Phosphorus 2.6 L Direct Bilirubin 0.4 H Alkaline Phosphatase Albumin 3.0 L Globulin 4.4 H Albumin/Globulin Ratio 0.7 L 04/30/18 04/30/18 04/30/18 04:00 04:00 04:00 RBC 2.97 L Hgb 9.9 L Hct 30.7 L MCV 103.3 H RDW 16.8 H Plt Count Lymph % (Auto) 12.1 L Lymph # (Auto) 0.7 L PT 31.4 H INR 3.0 H Chloride 89 L Carbon Dioxide 43 H* Anion Gap 7.0 L BUN 47 H Creatinine 1.9 H Uric Acid 15.0 H Phosphorus 2.5 L Direct Bilirubin 0.4 H Alkaline Phosphatase 124 H Albumin Globulin 5.1 H Albumin/Globulin Ratio 0.6 L 04/29/18 04/29/18 04/29/18 03:56 03:56 03:56 RBC 2.82 L Hgb 9.6 L Hct 29.1 L MCV 103.2 H RDW 16.7 H Plt Count 135 L Lymph % (Auto) Lymph # (Auto) 0.9 L PT 27.2 H INR 2.5 H Chloride 92 L Carbon Dioxide 45 H* Anion Gap 4.0 L BUN 46 H Creatinine 1.7 H Uric Acid 15.1 H Phosphorus Direct Bilirubin 0.5 H Alkaline Phosphatase Albumin Globulin 4.9 H Albumin/Globulin Ratio 0.7 L Meds: Medications Acetaminophen (Tylenol) 650 mg PO Q6HP PRN PRN Reason: PAIN/FEVER > 101 Hydrocodone Bitart/Acetaminophen ([place] 10/325mg) 2 tab PO Q6HP PRN PRN Reason: Pain Last Admin: 05/01/18 08:21 Dose: 2 tab Acetazolamide Sodium (Diamox) 250 mg IV BID [facility] Last Admin: 05/01/18 09:24 Dose: 250 mg Bumetanide (Bumex) 2 mg PO BIDD [facility] Last Admin: 05/01/18 09:23 Dose: 2 mg Digoxin (Lanoxin) 125 mcg PO Q48H [facility] Last Admin: 04/29/18 13:54 Dose: 125 mcg Docusate Sodium (Colace) 100 mg PO BID [facility] Last Admin: 05/01/18 09:24 Dose: 100 mg Heparin Sodium (Porcine) (Heparin Flush) 2 ml IV Q12 [facility] Last Admin: 05/01/18 09:24 Dose: 2 ml Metolazone (Zaroxolyn) 2.5 mg PO DAILY@0730 [facility] Last Admin: 05/01/18 08:21 Dose: 2.5 mg Naloxone HCl (Narcan) 0.1 mg IV Q2MIN PRN PRN Reason: Opiate Reversal Ondansetron HCl (Zofran Odt) 4 mg SL Q4HP PRN PRN Reason: Nausea And Vomiting Last Admin: 04/30/18 17:12 Dose: 4 mg Polyethylene Glycol (Miralax) 17 gm PO DAILY PRN PRN Reason: Constipation Last Admin: 04/28/18 10:37 Dose: 17 gm Potassium Chloride (Kdur) 20 meq PO QAMCC [facility] Last Admin: 05/01/18 09:23 Dose: 20 meq Senna (Senokot) 1 tab PO BID [facility] Last Admin: 05/01/18 09:23 Dose: 1 tab Sodium Chloride (Saline Flush) 10 ml IV UD PRN PRN Reason: FLUSH Last Admin: 04/28/18 08:17 Dose: 10 ml Sodium Chloride (Saline Flush) 10 ml IV Q12 [facility] Last Admin: 05/01/18 09:24 Dose: 10 ml Vitamin D (Vitamin D3) 2,000 unit PO DAILY [facility] Last Admin: 05/01/18 09:23 Dose: 2,000 unit Warfarin Sodium (Coumadin Per Pharmacy) 1 [place] [facility] [place] PN: A/P - Time Spent With Patient Total time spent is greater than 50% in coordination of care (as documented) at patient's floor/unit and/or counseling patient: 15 - 24 minutes (1) Renal anasarca Status: Acute Assessment and plan: * Anasarca -continuing to diuresis well. Over 22 L net negative. Continue Bumex/metolazone combination * Contraction alkalosis secondary to diuresis. Continue BID Diamox * Acute decompensated heart failure diastolic/ Acute cor pulmonale-resolved. * Acute on chr renal failure/ Cardio renal syndrome-creatinine downtrending from 2.5-1.9->1.8->1.9->1.7->1.9->2. Nephrology following * Atrial fibrillation, s/p pacemaker- rate controlled, on digoxin, prn IV metoprolol. Continue Coumadin * HTN- continue holding lisinopril and carvedilol to keep blood pressure higher to promote diuresis * Obstructive sleep apnea- Continue cpap at night. * Bed bound status / Morbid obesity- Await SNF transfer for post hospitalization rehabilitation * Osteoarthritis- prn pain meds. * [facility] lower extremity wounds and stasis changes- wound cares following * DVT on coumadin. * FUll code Plan * Continue to await SNF transfer * Continue diuresis * Pre-existing medical condition management as above * Physical therapy Current Visit: Yes Medical - PN: Qual - VTE Deep Vein Thrombosis/Pulmonary Embolism Present on Admission: No
[2018-05-01] MEDS: DIGOXIN 125 MCG TABLET PO SCH (13:56)
[2018-05-01] MEDS ORDERED: WARFARIN 2.5 MG TABLET PO ONE (14:00)
[2018-05-02 05:00] LABS: Basophils # (Auto) 0 K/mcL (0.0-0.3); Basophils % (Auto) 0.4 % (0.0-2.0); Eosinophils # (Auto) 0.3 K/mcL (0.0-0.7); Eosinophils % (Auto) 5.4 % (0.0-7.0); Granulocytes % (Auto) 67.9 % (38.0-78.0); Lymphocytes # (Auto) 0.9 K/mcL (1.5-4.8); Lymphocytes % (Auto) 17.1 % (15.5-49.0); Mean Corpuscular HGB Conc 32.7 g/dL (31.0-36.0); Mean Corpuscular Hemoglobin 33.6 pg (26.0-34.0); Monocytes # (Auto) 0.5 K/mcL (0.1-0.9); Monocytes % (Auto) 9.2 % (1.0-12.0); Platelet Count 148 K/mcL (140-440); RBC 2.83 M/mcL (4.50-5.90)
[2018-05-02 05:38] LABS: ALT/SGPT 6 U/l (0-40); Albumin 3.1 gm/dL (3.2-5.2); Albumin/Globulin Ratio 0.6 (1.0-2.3); Alkaline Phosphatase 124 U/L (39-117); Bilirubin,Direct 0.5 mg/dL (0.0-0.3); Blood Urea Nitrogen 50 mg/dl (6-20); Gamma Glutamyl Transpeptidase 57 U/L (8-61); Uric Acid 14.5 mg/dL (2.5-8.0)
--- NOTE | 2018-05-02 06:33 | Nephrology Progress Note ---
Subjective Patient information: Note initiated : 05/02/18 at 6:31 am Branden Espinosa is a [id number] male with chronic kidney disease stage 3, chronic anemia associated with chronic kidney disease, generalized edema, hypertension, morbid obesity, cor pulmonale, chronic atrial fibrillation on Coumadin (Echo on 12/03/17: LVEF 48%, mild global hypokinesis, right ventricle severely dilated, severe pulmonary hypertension), admitted on 04/20/18 for acute on chronic renal failure with fluid overload. Chief Complaint: Worsening leg edema Principal diagnosis: Acute on chronic renal failure with fluid overload Pertinent ROS: Weakness Shortness of breath Edema Wounds Objective - Vital Signs Vital signs: Vital Signs Temp Pulse Resp BP Pulse Ox 05/02/18 04:00 70 18 93/61 93 05/02/18 00:00 88 97 05/01/18 20:49 98.0 F 86 18 102/68 99 05/01/18 17:00 97.5 F 120 H 18 101/70 97 05/01/18 12:48 98.9 F 88 16 102/67 96 05/01/18 08:34 98 05/01/18 08:25 97.9 F 95 H 16 114/75 98 05/01/18 08:00 98 Intake and Output 05/01/18 05/02/18 05/02/18 21:59 05:59 13:59 Intake Total 300 / 300 270 / 270 Output Total 1150 / 1150 900 / 900 Balance -850 / -850 -630 / -630 Intake: Oral 300 / 300 270 / 270 Output: Urine Catheter Amount 450 / 450 Void Amount 700 / 700 900 / 900 Other: Meal blanka crackers & peanut butter Percent of Meal Consumed 100% Feeding Ability Independent Intake & Output: Intake & Output 05/01/18 05/02/18 05/02/18 21:59 05:59 13:59 Intake Total 300 / 300 270 / 270 Output Total 1150 / 1150 900 / 900 Balance -850 / -850 -630 / -630 Intake: Oral 300 / 300 270 / 270 Output: Urine Catheter Amount 450 / 450 Void Amount 700 / 700 900 / 900 Other: Meal blanka crackers & peanut butter Percent of Meal Consumed 100% Feeding Ability Independent - General Appearance General appearance: obese, fatigue EENT: mucous membranes dry Neck: supple Respiratory: clear Cardiology: edema Gastrointestinal: no tenderness Integumentary: hyperpigmentation, chronic venous stasis Neurologic: no focal deficit, alert and oriented x3 Musculoskeletal: no deformities Psychiatric: mood/affect appropriate, cooperative - Lab 05/02/18 04:15 05/02/18 04:15 Most recent lab results Calcium 9.2 mg/dl (8.6-10.4) 05/02/18 04:15 Phosphorus 2.7 mg/dL (2.7-4.5) 05/02/18 04:15 Magnesium 2.1 mg/dL (1.6-2.5) 05/02/18 04:15 Assessment and Plan (1) Acute on chronic kidney failure Renal US on 12/31/17: Slightly echogenic renal parenchyma bilaterally which may be seen with chronic medical renal disease. Kidneys are otherwise anatomically normal. Progress: Urine output: Adequate eGFR ~40 at baseline Status: Acute Priority: Medium Qualifiers: Acute renal failure type: unspecified Chronic kidney disease stage: stage 3 (moderate) Qualified Code(s): N17.9 - Acute kidney failure, unspecified; N18.3 - Chronic kidney disease, stage 3 (moderate) (2) Secondary hyperparathyroidism of renal origin Work up: Labs on 02/23/18: Vitamin D Total (25-Hydroxy) 18 Labs on 04/22/18: iPTH 98.7 Plan: Cholecalciferol 2,000 unit daily started Status: Chronic Priority: Medium (3) Persistent proteinuria Labs on 04/20/18: Urinalysis yellow, hazy, pH 5.0, SG 1.013, protein negative, occult blood negative, random protein/creatinine ratio 240 mg/g creatinine and random urine sodium 49. Labs on 12/31/17: Urinalysis yellow, hazy, pH 6.0, SG 1.012, protein negative, occult blood 0.03, no cellular casts, random protein/creatinine ratio 230 mg/g creatinine and random microalbumin/creatinine ratio 19 mg/g creatinine. New work up: UPEP showed monoclonal proteins SPEP was consistent with chronic inflammation Plan: Serum PATRIZIA and free light chains ordered Status: Chronic Priority: Medium (4) Metabolic alkalosis Metabolic alkalosis associated with diuresis on Acetazolamide 250 mg IV BID Status: Chronic Priority: Medium (5) Other fluid overload Fluid overload associated with chronic cor pulmonale (Echo on 12/03/17: LVEF 48% , mild global hypokinesis, right ventricle severely dilated, severe pulmonary hypertension). Treatment: Bumex 2 mg PO BIDD, Metolazone 2.5 mg PO QAM and Potassium Chloride 20 mEq PO QAM. I recommended adequate treatment of obstructive sleep apnea. He stated he is not using his new CPAP because it turns of for air leak. He is still using the old one but does not think pressures are enough. I recommended calling the service for evaluation. Status: Chronic Priority: Medium (6) Anemia in stage 3 chronic kidney disease No iron deficiency No need for erythropoietin Status: Chronic Priority: Medium
[2018-05-02] MEDS: METOLAZONE 2.5 MG TABLET PO SCH (06:55)
[2018-05-02] MEDS: HYDROcodone/APAP 10/325MG TABLET PO PRN ×2 (08:32→14:47)
[2018-05-02] MEDS: BUMETANIDE 1 MG TABLET PO SCH ×2 (08:33→16:22)
[2018-05-02] MEDS: SENNOSIDES 1 TABLET PO SCH ×2 (08:34→21:47)
[2018-05-02] MEDS: DOCUSATE SODIUM 100 MG CAPSULE PO SCH ×2 (08:34→21:47)
[2018-05-02] MEDS: VITAMIN D3 1,000 UNIT TABLET PO SCH (08:34)
[2018-05-02] MEDS: POTASSIUM CHLORIDE 20 MEQ TABLET PO SCH (08:34)
[2018-05-02] MEDS: 0.9 % SODIUM CHLORIDE 10 ML SYRINGE IV SCH ×2 (08:48→21:48)
[2018-05-02] MEDS: acetaZOLAMIDE SOD 500 MG VIAL IV SCH ×2 (08:48→21:47)
[2018-05-02 09:25] LABS: Lambda Free Light Chains 135.14 mg/L (5.71-26.30)
--- NOTE | 2018-05-02 11:31 | Internal Med Progress Note ---
Medical - PN: Subj Patient information: Note initiated : 05/02/18 at 11:27 am Service Date, if different from initiated Date: [] Patient: Branden Espinosa 57 y/o M admitted on 04/20/18 for Worsening Renal Failure. Chief Complaint: [] Interval history: Mr. Espinosa is a 57 year old Male with history of morbid obesity, bedbound, severe pulmonary hypertension, congestive heart failure, chronic kidney disease atrial fibrillation. The patient presents to the hospital for worsening shortness of breath and increased edema in his body. The patient was discharged from this facility I believe on 20 March. He was transferred to [facility] for placement of a pacemaker. His admission in March was also for increased swelling, worsening renal function and was treated as congestive heart failure. At that point in time the patient was supratherapeutic and his INR as well as supratherapeutic and his digoxin level. Digoxin was held. The patient eventually was transferred to a higher center for placement of a pacemaker because of significant cardiac pauses. He underwent the pacemaker placement and was discharged from the facility. According to the patient since his discharge from the tertiary facility the patient has been having increased swelling in his lower extremities. This has been progressively getting worse, this has been accompanied by shortness of breath. He denies any other acute complaints or concerns. He denies taking in too much fluid he is watching his salt intake and is not taking any NSAIDs. The patient denies any chest pain denies any dizziness he does have intermittent changes in vision. The patient was being followed by nephrology in the outpatient, his dose of diuretics were being changed however despite this the patient's edema kept getting worse and therefore the patient was asked to come to the emergency room for evaluation. In the ER the patient was noted to have worsening renal failure, elevated bnp, significant edema, cxr was clear, showed resolving pna, ekg showed poor voltate , afib, 04/21 Patient seen and examined, overnight was not able to sleep well, there was some malfunction in the bariatric bed which kept beeping. Patient tired this morning. He has extensive erythema on his back possible fungal rash. Patient has not had a bowel movement for the last few days wanting a stool softener. He notes his shortness of breath is somewhat better but still not able to lie flat, denies any chest pain nausea vomiting. Appreciate nephrology input. Patient remains on IV Lasix, negative balance since yesterday,-1550 04/22 Pt seen examined, tired today, did not sleep well, bp on the lower end of normal , neg 1500 yesterday Pt has no other complaints. had bm this after noon. nephrology following. labs stable. 04/23 Pt seen examined, slept well last night, denies any acute complaints, noted some chest discomfort yesterday, no chest tightness or pressure, just a flicker, Pt is already anticoagulated with coumadin and INR is therapeutic The patient Creat is trending down, creat is 2.2, He is diuresing well, Neg 5L since admission Plan to use chlorothiazide this afternoon, and then followed by lasix to see if we can improve diuresis 04/24 Pt seen examined, no acute overnight events, [place] [id number] since admission, still has significant edema Start on metolozone 5mg daily, continue IV lasix 80 bid add acetazolamide one dose today for worsening metabolic alkalosis. BP stable HR stable Dig level 1.2-1.3, pt has pacemaker, intermittently pacing on tele inr therapeutic PT feels cpap is not giving enough pressure, even at 14mmhg, have spoken with RT to look into the device. 04/24 [place] [id number] since admission, pt feels ok, still has significant dependent edema, I feel we can switch him to oral meds and see if he continues to diurese on same d/c iv lasix, start on po bumex, and metolozone 5mg before bumex and monitor urine output The patient bed was not zeroed in, and therefore the daily weights are not accurate, I am not using daily weight to monitor treatment at this time. 04/26-patient doing well. No overnight events. Over 1600 cc net negative in 24 hours. Lower dose of metolazone. Continue Diamox due to contraction alkalosis. Patient undergoing strengthening exercises. Case management arranging SNF transfer. No fever chills shortness of breath. 04/27 -patient doing well. No overnight events. No concerns per staff. No fever chills or shortness of breath. Diuresing well. Additional 2700 cc negative. Bicarbonate at 42 with contraction alkalosis on Diamox. Creatinine 1.8. Ongoing physical therapy. Nephrology on board. 04/28-patient doing better. Ongoing diuresis. No dyspnea/chest pain. Ongoing physical therapy. Continues to be bedridden due to morbid obesity. Anticipate SNF transfer. Case management and coordinating. Creatinine 1.9. Bicarbonate 44 on twice-daily Diamox. April 29-patient doing well. No overnight events. Awaiting SNF transfer. Additional 2000 cc net negative. Bicarbonate 45. On Diamox for contraction alkalosis. Creatinine 1.7. Ongoing physical therapy. No concerns per staff 04/30-patient doing well. No overnight events. Diuresis additional 2400 cc. On combination diuretics. Electrolytes stable. Ongoing physical therapy. Case management coordinating discharge planning. Likely likely stay inpatient through the weekend until placement 05/01-patient doing well. No overnight events. No concerns per staff. No fever chills diuresing well. Only 6/metolazone/acetazolamide. Proteinuria currently being managed by nephrology. Electrophoresis/free light chains ordered per nephrology. Case management arranging SNF transfer. Anticipate additional 48 hours until placement can be arranged. 05/02-patient resting comfortably. No overnight events. Additional 2000 cc net negative fluid status. Creatinine around 2. Persistent alkalosis with bicarbonate 43. On twice a day Diamox. Still awaiting SNF placement. Significant excoriation bilateral dependent sacral gluteal area, on frequent turning/repositioning to avoid decubiti. Ongoing physical therapy - Constitutional Vitals: Vital Signs Temp Pulse Resp BP Pulse Ox 97.8 F 70 18 111/70 95 05/02/18 10:52 05/02/18 04:00 05/02/18 10:52 05/02/18 10:52 05/02/18 10:52 Period Temp Pulse Resp BP Sys/Andujar Pulse Ox Last 24 Hr 97.5 F-98.9 F 70-120 16-20 93-111/61-73 93-99 Intake and Output 05/01/18 05/02/18 05/02/18 21:59 05:59 13:59 Intake Total 300 / 300 270 / 270 60 / 60 Output Total 1150 / 1150 900 / 900 1200 / 1200 Balance -850 / -850 -630 / -630 -1140 / -1140 Intake & Output: Intake & Output 05/01/18 05/02/18 05/02/18 21:59 05:59 13:59 Intake Total 300 / 300 270 / 270 60 / 60 Output Total 1150 / 1150 900 / 900 1200 / 1200 Balance -850 / -850 -630 / -630 -1140 / -1140 Intake: Oral 300 / 300 270 / 270 60 / 60 Output: Urine Catheter Amount 450 / 450 Void Amount 700 / 700 900 / 900 1200 / 1200 Other: Meal blanka crackers & peanut butter Breakfast Percent of Meal Consumed 100% 80 Feeding Ability Independent Independent Medical - PN: Obj Da - Labs CBC & Chem 7: 05/02/18 04:15 05/02/18 04:15 Labs: Abnormal Lab Results 05/02/18 05/02/18 05/02/18 04:15 04:15 04:15 RBC 2.83 L Hgb 9.5 L Hct 29.2 L MCV 103.0 H RDW 16.0 H Plt Count Lymph % (Auto) Lymph # (Auto) 0.9 L PT 31.8 H INR 3.0 H Chloride 90 L Carbon Dioxide 44 H* Anion Gap 5.0 L BUN 50 H Creatinine 2.0 H Uric Acid 14.5 H Phosphorus Direct Bilirubin 0.5 H Alkaline Phosphatase 124 H Albumin 3.1 L Globulin 4.8 H Albumin/Globulin Ratio 0.6 L Free Fairlee LC, Quant Free Lambda LC, Quant Free Fairlee/Lambda Ratio 05/01/18 05/01/18 05/01/18 03:55 03:55 03:55 RBC 2.74 L Hgb 9.1 L Hct 28.2 L MCV 102.8 H RDW 16.5 H Plt Count 129 L Lymph % (Auto) Lymph # (Auto) 0.8 L PT INR Chloride 91 L Carbon Dioxide 43 H* Anion Gap 6.0 L BUN 50 H Creatinine 2.0 H Uric Acid 14.7 H Phosphorus 2.6 L Direct Bilirubin 0.4 H Alkaline Phosphatase Albumin 3.0 L Globulin 4.4 H Albumin/Globulin Ratio 0.7 L Free Fairlee LC, Quant 322.25 H Free Lambda LC, Quant 135.14 H Free Fairlee/Lambda Ratio 2.385 H 05/01/18 04/30/18 04/30/18 03:55 04:00 04:00 RBC 2.97 L Hgb 9.9 L Hct 30.7 L MCV 103.3 H RDW 16.8 H Plt Count Lymph % (Auto) 12.1 L Lymph # (Auto) 0.7 L PT 31.0 H INR 2.9 H Chloride 89 L Carbon Dioxide 43 H* Anion Gap 7.0 L BUN 47 H Creatinine 1.9 H Uric Acid 15.0 H Phosphorus 2.5 L Direct Bilirubin 0.4 H Alkaline Phosphatase 124 H Albumin Globulin 5.1 H Albumin/Globulin Ratio 0.6 L Free Fairlee LC, Quant Free Lambda LC, Quant Free Fairlee/Lambda Ratio 04/30/18 04:00 RBC Hgb Hct MCV RDW Plt Count Lymph % (Auto) Lymph # (Auto) PT 31.4 H INR 3.0 H Chloride Carbon Dioxide Anion Gap BUN Creatinine Uric Acid Phosphorus Direct Bilirubin Alkaline Phosphatase Albumin Globulin Albumin/Globulin Ratio Free Fairlee LC, Quant Free Lambda LC, Quant Free Fairlee/Lambda Ratio Meds: Medications Acetaminophen (Tylenol) 650 mg PO Q6HP PRN PRN Reason: PAIN/FEVER > 101 Hydrocodone Bitart/Acetaminophen (Clarinda 10/325mg) 2 tab PO Q6HP PRN PRN Reason: Pain Last Admin: 05/02/18 08:32 Dose: 2 tab Acetazolamide Sodium (Diamox) 250 mg IV BID [facility] Last Admin: 05/02/18 08:48 Dose: 250 mg Bumetanide (Bumex) 2 mg PO BIDD [facility] Last Admin: 05/02/18 08:33 Dose: 2 mg Digoxin (Lanoxin) 125 mcg PO Q48H [facility] Last Admin: 05/01/18 13:56 Dose: 125 mcg Docusate Sodium (Colace) 100 mg PO BID [facility] Last Admin: 05/02/18 08:34 Dose: 100 mg Heparin Sodium (Porcine) (Heparin Flush) 2 ml IV Q12 [facility] Last Admin: 05/02/18 08:34 Dose: 2 ml Metolazone (Zaroxolyn) 2.5 mg PO DAILY@0730 [facility] Last Admin: 05/02/18 06:55 Dose: 2.5 mg Naloxone HCl (Narcan) 0.1 mg IV Q2MIN PRN PRN Reason: Opiate Reversal Ondansetron HCl (Zofran Odt) 4 mg SL Q4HP PRN PRN Reason: Nausea And Vomiting Last Admin: 04/30/18 17:12 Dose: 4 mg Polyethylene Glycol (Miralax) 17 gm PO DAILY PRN PRN Reason: Constipation Last Admin: 04/28/18 10:37 Dose: 17 gm Potassium Chloride (Kdur) 20 meq PO QAMCC [facility] Last Admin: 05/02/18 08:34 Dose: 20 meq Senna (Senokot) 1 tab PO BID [facility] Last Admin: 05/02/18 08:34 Dose: 1 tab Sodium Chloride (Saline Flush) 10 ml IV UD PRN PRN Reason: FLUSH Last Admin: 04/28/18 08:17 Dose: 10 ml Sodium Chloride (Saline Flush) 10 ml IV Q12 [facility] Last Admin: 05/02/18 08:48 Dose: 10 ml Vitamin D (Vitamin D3) 2,000 unit PO DAILY [facility] Last Admin: 05/02/18 08:34 Dose: 2,000 unit Warfarin Sodium (Coumadin Per Pharmacy) 1 order PO UD [facility] Medical - PN: A/P - Time Spent With Patient Total time spent is greater than 50% in coordination of care (as documented) at patient's floor/unit and/or counseling patient: 15 - 24 minutes (1) Renal anasarca Status: Acute Assessment and plan: * Anasarca -diuresed over 25 L. Continue Bumex/metolazone combination * Contraction alkalosis secondary to diuresis. Continue BID Diamox. Bicarbonate 44 * Acute decompensated heart failure diastolic/ Acute cor pulmonale-resolved. * Acute on chr renal failure/ Cardio renal syndrome-creatinine downtrending from 2.5-1.9->1.8->1.9->1.7->1.9->2. Nephrology following * Atrial fibrillation, s/p pacemaker- rate controlled, on digoxin. * HTN- continue holding lisinopril and carvedilol to keep blood pressure higher to promote diuresis * Obstructive sleep apnea- Continue cpap at night. * Bed bound status / Morbid obesity- Await SNF transfer * Osteoarthritis- prn pain meds. * chr lower extremity wounds and sacral lymphedema-continue frequent positioning /wound care per wound physician * DVT on coumadin. * FUll code Plan * Awaiting SNF transfer * Continue diuresis. * Pre-existing medical condition management as above * Physical therapy Current Visit: Yes Medical - PN: Qual - VTE Deep Vein Thrombosis/Pulmonary Embolism Present on Admission: No
--- NOTE | 2018-05-03 06:14 | Nephrology Progress Note ---
Subjective Patient information: Note initiated : 05/03/18 at 6:10 am Branden Espinosa is a 51-ugjin-yuf male with chronic kidney disease stage 3, chronic anemia associated with chronic kidney disease, generalized edema, hypertension, morbid obesity, cor pulmonale, chronic atrial fibrillation on Coumadin (Echo on 12/03/17: LVEF 48%, mild global hypokinesis, right ventricle severely dilated, severe pulmonary hypertension), admitted on 04/20/18 for acute on chronic renal failure with fluid overload. Chief Complaint: Worsening leg edema Principal diagnosis: Acute on chronic renal failure with fluid overload Interval history: Waiting for placement Pertinent ROS: Weakness Shortness of breath Edema Wounds Objective - Vital Signs Vital signs: Vital Signs Temp Pulse Resp BP Pulse Ox 05/03/18 04:00 97.8 F 90 16 108/79 95 05/02/18 23:30 97.8 F 113 H 18 111/81 91 05/02/18 20:00 97.8 F 86 18 111/74 97 05/02/18 15:11 97.6 F 18 103/76 94 05/02/18 10:52 97.8 F 18 111/70 95 05/02/18 07:05 97.5 F 20 105/73 95 Intake and Output 05/02/18 05/03/18 05/03/18 21:59 05:59 13:59 Intake Total 240 / 240 250 / 250 Output Total 1050 / 1050 1000 / 1000 Balance -810 / -810 -750 / -750 Intake: Oral 240 / 240 250 / 250 Output: Void Amount 1050 / 1050 1000 / 1000 Other: Meal Dinner Percent of Meal Consumed 75% Feeding Ability Assist with Tray Set Up # Voids 1 1 Weight 470 lb Intake & Output: Intake & Output 05/02/18 05/03/18 05/03/18 21:59 05:59 13:59 Intake Total 240 / 240 250 / 250 Output Total 1050 / 1050 1000 / 1000 Balance -810 / -810 -750 / -750 Weight 470 lb Intake: Oral 240 / 240 250 / 250 Output: Void Amount 1050 / 1050 1000 / 1000 Other: Meal Dinner Percent of Meal Consumed 75% Feeding Ability Assist with Tray Set Up # Voids 1 1 - General Appearance General appearance: obese, frail EENT: mucous membranes dry Neck: supple Respiratory: clear Cardiology: edema Gastrointestinal: no tenderness Integumentary: hyperpigmentation, chronic venous stasis Neurologic: no focal deficit, alert and oriented x3 Musculoskeletal: no deformities Psychiatric: mood/affect appropriate, cooperative - Lab 05/02/18 04:15 05/02/18 04:15 Most recent lab results Calcium 9.2 mg/dl (8.6-10.4) 05/02/18 04:15 Phosphorus 2.7 mg/dL (2.7-4.5) 05/02/18 04:15 Magnesium 2.1 mg/dL (1.6-2.5) 05/02/18 04:15 Assessment and Plan (1) Acute on chronic kidney failure Renal US on 12/31/17: Slightly echogenic renal parenchyma bilaterally which may be seen with chronic medical renal disease. Kidneys are otherwise anatomically normal. Progress: Urine output: Adequate eGFR ~40 at baseline Status: Acute Priority: Medium Qualifiers: Acute renal failure type: unspecified Chronic kidney disease stage: stage 3 (moderate) Qualified Code(s): N17.9 - Acute kidney failure, unspecified; N18.3 - Chronic kidney disease, stage 3 (moderate) (2) Secondary hyperparathyroidism of renal origin Work up: Labs on 02/23/18: Vitamin D Total (25-Hydroxy) 18 Labs on 04/22/18: iPTH 98.7 Plan: Cholecalciferol 2,000 unit daily started Status: Chronic Priority: Medium (3) Persistent proteinuria Labs on 04/20/18: Urinalysis yellow, hazy, pH 5.0, SG 1.013, protein negative, occult blood negative, random protein/creatinine ratio 240 mg/g creatinine and random urine sodium 49. Labs on 12/31/17: Urinalysis yellow, hazy, pH 6.0, SG 1.012, protein negative, occult blood 0.03, no cellular casts, random protein/creatinine ratio 230 mg/g creatinine and random microalbumin/creatinine ratio 19 mg/g creatinine. New work up: UPEP showed monoclonal proteins SPEP was consistent with chronic inflammation Labs on 05/01/18: Serum free kappa light chains 322, serum free lambda light chains 135, serum free kappa/lambda light chain ratio 2.38, serum PATRIZIA TNP. Status: Chronic Priority: Medium (4) Metabolic alkalosis Metabolic alkalosis associated with diuresis on Acetazolamide 250 mg IV BID Status: Chronic Priority: Medium (5) Other fluid overload Fluid overload associated with chronic cor pulmonale (Echo on 12/03/17: LVEF 48% , mild global hypokinesis, right ventricle severely dilated, severe pulmonary hypertension). Treatment: Bumex 2 mg PO BIDD, Metolazone 2.5 mg PO QAM and Potassium Chloride 20 mEq PO QAM. I recommended adequate treatment of obstructive sleep apnea. He stated he is not using his new CPAP because it turns of for air leak. He is still using the old one but does not think pressures are enough. I recommended calling the service for evaluation. Status: Chronic Priority: Medium (6) Anemia in stage 3 chronic kidney disease No iron deficiency No need for erythropoietin Status: Chronic Priority: Medium
[2018-05-03] MEDS: METOLAZONE 2.5 MG TABLET PO SCH (07:11)
[2018-05-03] MEDS: HYDROcodone/APAP 10/325MG TABLET PO PRN ×2 (07:30→15:42)
[2018-05-03] MEDS: acetaZOLAMIDE SOD 500 MG VIAL IV SCH (10:17)
[2018-05-03] MEDS: DOCUSATE SODIUM 100 MG CAPSULE PO SCH ×2 (10:17→20:00)
[2018-05-03] MEDS: POTASSIUM CHLORIDE 20 MEQ TABLET PO SCH (10:17)
[2018-05-03] MEDS: VITAMIN D3 1,000 UNIT TABLET PO SCH (10:17)
[2018-05-03] MEDS: BUMETANIDE 1 MG TABLET PO SCH ×2 (10:18→15:42)
[2018-05-03] MEDS: 0.9 % SODIUM CHLORIDE 10 ML SYRINGE IV SCH ×2 (10:18→20:01)
[2018-05-03] MEDS: SENNOSIDES 1 TABLET PO SCH ×2 (10:18→20:00)
--- NOTE | 2018-05-03 10:20 | Discharge Summary ---
Medical - DS: Prov Patient information: Note initiated : 05/03/18 at 10:18 am Service Date, if different from initiated Date: [] Patient: Branden Espinosa 57 y/o M admitted on 04/20/18 for Worsening Renal Failure. Chief Complaint: [] Date of admission: 04/20/18 14:45 Discharge date: 05/03/18 Primary care physician: Nikolas Whitfield Admitting clinician: Arturo Alvarenga Consults: 04/20/18 14:00 Consult to Physician [CONS] Stat Comment: Consulting Provider: Tatiana White Reason For Exam: Physician to Consult Consult to Physician [CONS] Stat Comment: Consulting Provider: Arturo Alvarenga Reason For Exam: Physician to Consult 04/20/18 17:33 Consult to Physician [CONS] Routine Comment: Wound Care Consult Consulting Provider: Jairon Mckeon Reason For Exam: Physician to Consult Discharging clinician: Arturo Alvarenga Medical - DS: Meds - Discharge Medications Prescriptions: Bumetanide [Bumex] 2 mg PO BIDD #60 tablet Digoxin [Digitek] 125 mcg PO Q48 #90 tab Metolazone [Zaroxolyn] 2.5 mg PO DAILY #30 tab Potassium Chloride [K-Tab ER] 20 meq PO QDAY #60 tab Warfarin [Coumadin] 2.5 mg PO DAILY #100 tab Active and Home Medications: Home Medications carvedilol 12.5 mg tablet 12.5 mg PO BID #180 tab 09/06/17 [Rx Confirmed Last Taken 03/08/18] ferrous sulfate 300 mg (60 mg iron)/5 mL oral liquid 300 mg PO ONCE ml [History Confirmed 04/20/18 Last Taken Unknown] digoxin 125 mcg tablet 125 mcg PO QDAY #90 tab 12/30/17 [Rx Confirmed 04/20/18 Last Taken 1 Month Ago ~03/20/18] lisinopril 2.5 mg tablet 2.5 mg PO QDAY #90 tab 02/01/18 [Rx Confirmed 04/20/18 Last Taken 1 Month Ago ~03/20/18] torsemide 20 mg tablet 60 mg PO BID #360 tab 02/01/18 [Rx Confirmed 04/20/18 Last Taken 1 Month Ago ~03/20/18] honey 80 % topical gel 1 applic TOPICAL QDAY #44 ml 02/08/18 [Rx Confirmed 04/20 Last Taken 03/08/18] Bariatric Hospital Bed 1 unit QDAY 03/09/18 [History Confirmed 04/20/18 Last Taken Unknown] CPAP Supplies 1 order INTRANASAL HS 03/09/18 [History Confirmed 04/20/18 Last Taken 1 Month Ago ~03/20/18] furosemide 40 mg tablet 40 mg PO TID #90 tab 03/24/18 [Rx Confirmed 04/20/18 Last Taken Unknown] potassium chloride ER 10 mEq tablet,extended release 20 meq PO QDAY #60 tab [Rx Confirmed 04/20/18 Last Taken Unknown] hydrocodone 10 mg-acetaminophen 325 mg tablet 2 tab PO Q6H PRN #170 tab [Rx Confirmed 04/20/18 Last Taken Unknown] metolazone 2.5 mg tablet 2.5 mg PO .QOD #30 tab 04/12/18 [Rx Confirmed 04/20/18 Last Taken Unknown] Cefuroxime [Ceftin] 500 mg PO Q12 #20 tab 04/18/18 [Rx Confirmed 04/20/18 Last Taken Unknown] warfarin 5 mg tablet See Label Instructions PO .COMPLEX #100 tab 04/19/18 [Rx Confirmed 04/20/18 Last Taken Unknown] Low Air Loss Mattress 1 each .ROUTE DAILY 04/20/18 [History Confirmed 04/20/18 Last Taken 1 Month Ago ~03/20/18] Medical - DS: Hosp Hospital course: Mr. Espinosa is a 57 year old M - Time Spent with Patient Total time spent providing and/or coordinating discharge services: Medical - DS: Exam - Constitutional Vitals: Vital Signs Temp Pulse Resp BP Pulse Ox 05/03/18 10:09 97 05/03/18 07:32 97.0 F 90 16 118/73 95 05/03/18 04:00 97.8 F 90 16 108/79 95 05/02/18 23:30 97.8 F 113 H 18 111/81 91 05/02/18 20:00 97.8 F 86 18 111/74 97 05/02/18 15:11 97.6 F 18 103/76 94 05/02/18 10:52 97.8 F 18 111/70 95 Intake and Output 06/05/03/18 05/03/18 21:59 05:59 13:59 Intake Total 240 / 240 250 / 250 Output Total 1050 / 1050 1000 / 1000 300 / 300 Balance -810 / -810 -750 / -750 -300 / -300 Intake: Oral 240 / 240 250 / 250 Output: Void Amount 1050 / 1050 1000 / 1000 300 / 300 Other: Meal Dinner Percent of Meal Consumed 75% Feeding Ability Assist with Tray Set Up # Voids 1 1 Weight 470 lb Medical - DS: Data Labs on day of discharge: Labs from last 24 hours 05/03/18 05/03/18 05/01/18 04:00 04:00 03:55 PT 27.1 H INR 2.5 H Digoxin 0.6 Digoxin Dose Not Reportable Digox Last Dose Time Not Reportable PATRIZIA Interpretation Preliminary micro results at discharge 04/20/18 12:15 Blood Culture - Preliminary Blood Gram positive cocci Medical - DS: A/P - Patient/Caregiver Discharge Instructions Other Amb Orders: Physical Therapy at Discharge - General Location: Determined By Patient - Follow up Plan Follow up with: Catalina Simpson MD [Physician] - (Schedule follow up appointment for 1 week.) Nikolas Whitfield MD [Primary Care Provider] - Prognosis: Fair Medical - DS: Qual - VTE Deep Vein Thrombosis/Pulmonary Embolism Present on Admission: No
--- NOTE | 2018-05-03 11:17 | Internal Med Progress Note ---
Medical - PN: Subj Patient information: Note initiated : 05/03/18 at 11:14 am Service Date, if different from initiated Date: [] Patient: Brnaden Espinosa 57 y/o M admitted on 04/20/18 for Worsening Renal Failure. Chief Complaint: [] Interval history: Mr. Espinosa is a 57 year old Male with history of morbid obesity, bedbound, severe pulmonary hypertension, congestive heart failure, chronic kidney disease atrial fibrillation. The patient presents to the hospital for worsening shortness of breath and increased edema in his body. The patient was discharged from this facility I believe on 20 March. He was transferred to [facility] for placement of a pacemaker. His admission in March was also for increased swelling, worsening renal function and was treated as congestive heart failure. At that point in time the patient was supratherapeutic and his INR as well as supratherapeutic and his digoxin level. Digoxin was held. The patient eventually was transferred to a higher center for placement of a pacemaker because of significant cardiac pauses. He underwent the pacemaker placement and was discharged from the facility. According to the patient since his discharge from the tertiary facility the patient has been having increased swelling in his lower extremities. This has been progressively getting worse, this has been accompanied by shortness of breath. He denies any other acute complaints or concerns. He denies taking in too much fluid he is watching his salt intake and is not taking any NSAIDs. The patient denies any chest pain denies any dizziness he does have intermittent changes in vision. The patient was being followed by nephrology in the outpatient, his dose of diuretics were being changed however despite this the patient's edema kept getting worse and therefore the patient was asked to come to the emergency room for evaluation. In the ER the patient was noted to have worsening renal failure, elevated bnp, significant edema, cxr was clear, showed resolving pna, ekg showed poor voltate , afib, 04/21 Patient seen and examined, overnight was not able to sleep well, there was some malfunction in the bariatric bed which kept beeping. Patient tired this morning. He has extensive erythema on his back possible fungal rash. Patient has not had a bowel movement for the last few days wanting a stool softener. He notes his shortness of breath is somewhat better but still not able to lie flat, denies any chest pain nausea vomiting. Appreciate nephrology input. Patient remains on IV Lasix, negative balance since yesterday,-[id number] 04/22 Pt seen examined, tired today, did not sleep well, bp on the lower end of normal , neg 1500 yesterday Pt has no other complaints. had bm this after noon. nephrology following. labs stable. 04/23 Pt seen examined, slept well last night, denies any acute complaints, noted some chest discomfort yesterday, no chest tightness or pressure, just a flicker, Pt is already anticoagulated with coumadin and INR is therapeutic The patient Creat is trending down, creat is 2.2, He is diuresing well, Neg 5L since admission Plan to use chlorothiazide this afternoon, and then followed by lasix to see if we can improve diuresis 04/24 Pt seen examined, no acute overnight events, [place] [id number] since admission, still has significant edema Start on metolozone 5mg daily, continue IV lasix 80 bid add acetazolamide one dose today for worsening metabolic alkalosis. BP stable HR stable Dig level 1.2-1.3, pt has pacemaker, intermittently pacing on tele inr therapeutic PT feels cpap is not giving enough pressure, even at 14mmhg, have spoken with RT to look into the device. 04/24 [place] [id number] since admission, pt feels ok, still has significant dependent edema, I feel we can switch him to oral meds and see if he continues to diurese on same d/c iv lasix, start on po bumex, and metolozone 5mg before bumex and monitor urine output The patient bed was not zeroed in, and therefore the daily weights are not accurate, I am not using daily weight to monitor treatment at this time. 04/26-patient doing well. No overnight events. Over 1600 cc net negative in 24 hours. Lower dose of metolazone. Continue Diamox due to contraction alkalosis. Patient undergoing strengthening exercises. Case management arranging SNF transfer. No fever chills shortness of breath. 04/27 -patient doing well. No overnight events. No concerns per staff. No fever chills or shortness of breath. Diuresing well. Additional 2700 cc negative. Bicarbonate at 42 with contraction alkalosis on Diamox. Creatinine 1.8. Ongoing physical therapy. Nephrology on board. 04/28-patient doing better. Ongoing diuresis. No dyspnea/chest pain. Ongoing physical therapy. Continues to be bedridden due to morbid obesity. Anticipate SNF transfer. Case management and coordinating. Creatinine 1.9. Bicarbonate 44 on twice-daily Diamox. April 29-patient doing well. No overnight events. Awaiting SNF transfer. Additional 2000 cc net negative. Bicarbonate 45. On Diamox for contraction alkalosis. Creatinine 1.7. Ongoing physical therapy. No concerns per staff 04/30-patient doing well. No overnight events. Diuresis additional 2400 cc. On combination diuretics. Electrolytes stable. Ongoing physical therapy. Case management coordinating discharge planning. Likely likely stay inpatient through the weekend until placement 05/01-patient doing well. No overnight events. No concerns per staff. No fever chills diuresing well. Only 6/metolazone/acetazolamide. Proteinuria currently being managed by nephrology. Electrophoresis/free light chains ordered per nephrology. Case management arranging SNF transfer. Anticipate additional 48 hours until placement can be arranged. 05/02-patient resting comfortably. No overnight events. Additional 2000 cc net negative fluid status. Creatinine around 2. Persistent alkalosis with bicarbonate 43. On twice a day Diamox. Still awaiting SNF placement. Significant excoriation bilateral dependent sacral gluteal area, on frequent turning/repositioning to avoid decubiti. Ongoing physical therapy 05/03 Pt seen examined, no acute overnight issues, tolerating po diet well, neg 28L since admission, pt labs are stable, on IV acetazolamide, bumex and metolozone. Will d/c the IV acetazolamide and see how his bicarb trends No safe discharge plan yet. Working with case management for discharge planning. Pertinent ROS: Denies headache, dizziness Denies chest pain, palpitations Denies cough or shortness of breath Denies abdominal pain, nausea or vomiting. - Constitutional Vitals: Vital Signs Temp Pulse Resp BP Pulse Ox 97.0 F 90 16 118/73 97 05/03/18 07:32 05/03/18 07:32 05/03/18 07:32 05/03/18 07:32 05/03/18 10:09 Period Temp Pulse Resp BP Sys/Andujar Pulse Ox Last 24 Hr 97.0 F-97.8 F 86-113 16-18 103-118/73-81 91-97 Intake and Output 05/02/18 05/03/18 05/03/18 21:59 05:59 13:59 Intake Total 240 / 240 250 / 250 Output Total 1050 / 1050 1000 / 1000 300 / 300 Balance -810 / -810 -750 / -750 -300 / -300 Weight 470 lb Intake & Output: Intake & Output 05/02/18 05/03/18 05/03/18 21:59 05:59 13:59 Intake Total 240 / 240 250 / 250 Output Total 1050 / 1050 1000 / 1000 300 / 300 Balance -810 / -810 -750 / -750 -300 / -300 Weight 470 lb Intake: Oral 240 / 240 250 / 250 Output: Void Amount 1050 / 1050 1000 / 1000 300 / 300 Other: Meal Dinner Breakfast Percent of Meal Consumed 75% 100% Feeding Ability Assist with Tray Set Up Stool Size Moderate Stool Color Brown # Voids 1 1 # Bowel Movements 1 Exam: Constitutional; Afebrile, cooperative, alert, not in distress, morbidly obese Eyes- No icterus, , No periorbital swelling Ears- Ext ear normal, hearing normal to conversation. Neck- Midline trachea, supple Respiratory system: Air Entry equal on both sides, No crackles or wheezing, no rhonchi. CVS- Rate rhythm irregular, S1,S2 heard, no gallop, no rub. Abdomen- Soft nontender abdomen, no organomegaly, no tenderness, no guarding or rigidity, [employer]- AOOx3, moving all extremities, no gross focal deficit noted. Lower extremity- dependent edema present but significantly improved since admission. Medical - PN: Obj Da - Labs CBC & Chem 7: 05/02/18 04:15 05/02/18 04:15 Labs: Abnormal Lab Results 05/03/18 05/02/18 05/02/18 04:00 04:15 04:15 RBC 2.83 L Hgb 9.5 L Hct 29.2 L MCV 103.0 H RDW 16.0 H Plt Count Lymph # (Auto) 0.9 L PT 27.1 H INR 2.5 H Chloride 90 L Carbon Dioxide 44 H* Anion Gap 5.0 L BUN 50 H Creatinine 2.0 H Uric Acid 14.5 H Phosphorus Direct Bilirubin 0.5 H Alkaline Phosphatase 124 H Albumin 3.1 L Globulin 4.8 H Albumin/Globulin Ratio 0.6 L Free [place] LC, Quant Free Lambda LC, Quant Free [place]/Lambda Ratio 05/02/18 05/01/18 05/01/18 04:15 03:55 03:55 RBC Hgb Hct MCV RDW Plt Count Lymph # (Auto) PT 31.8 H INR 3.0 H Chloride 91 L Carbon Dioxide 43 H* Anion Gap 6.0 L BUN 50 H Creatinine 2.0 H Uric Acid 14.7 H Phosphorus 2.6 L Direct Bilirubin 0.4 H Alkaline Phosphatase Albumin 3.0 L Globulin 4.4 H Albumin/Globulin Ratio 0.7 L Free [place] LC, Quant 322.25 H Free Lambda LC, Quant 135.14 H Free [place]/Lambda Ratio 2.385 H 05/01/18 05/01/18 03:55 03:55 RBC 2.74 L Hgb 9.1 L Hct 28.2 L MCV 102.8 H RDW 16.5 H Plt Count 129 L Lymph # (Auto) 0.8 L PT 31.0 H INR 2.9 H Chloride Carbon Dioxide Anion Gap BUN Creatinine Uric Acid Phosphorus Direct Bilirubin Alkaline Phosphatase Albumin Globulin Albumin/Globulin Ratio Free [place] LC, Quant Free Lambda LC, Quant Free [place]/Lambda Ratio Meds: Medications Acetaminophen (Tylenol) 650 mg PO Q6HP PRN PRN Reason: PAIN/FEVER > 101 Hydrocodone Bitart/Acetaminophen ([place] 10/325mg) 2 tab PO Q6HP PRN PRN Reason: Pain Last Admin: 05/03/18 07:30 Dose: 2 tab Acetazolamide Sodium (Diamox) 250 mg IV BID [facility] Last Admin: 05/03/18 10:17 Dose: 250 mg Bumetanide (Bumex) 2 mg PO BIDD [facility] Last Admin: 05/03/18 10:18 Dose: 2 mg Digoxin (Lanoxin) 125 mcg PO Q48H [facility] Last Admin: 05/01/18 13:56 Dose: 125 mcg Docusate Sodium (Colace) 100 mg PO BID [facility] Last Admin: 05/03/18 10:17 Dose: 100 mg Heparin Sodium (Porcine) (Heparin Flush) 2 ml IV Q12 [facility] Last Admin: 05/03/18 10:18 Dose: 2 ml Metolazone (Zaroxolyn) 2.5 mg PO DAILY@0730 [facility] Last Admin: 05/03/18 07:11 Dose: 2.5 mg Naloxone HCl (Narcan) 0.1 mg IV Q2MIN PRN PRN Reason: Opiate Reversal Ondansetron HCl (Zofran Odt) 4 mg SL Q4HP PRN PRN Reason: Nausea And Vomiting Last Admin: 04/30/18 17:12 Dose: 4 mg Polyethylene Glycol (Miralax) 17 gm PO DAILY PRN PRN Reason: Constipation Last Admin: 04/28/18 10:37 Dose: 17 gm Potassium [facility] ([facility]) [facility] Last Admin: 05/03/18 10:17 Dose: 20 meq Senna (Senokot) 1 tab PO BID [facility] Last Admin: 05/03/18 10:18 Dose: 1 tab Sodium Chloride (Saline Flush) 10 ml IV UD PRN PRN Reason: FLUSH Last Admin: 04/28/18 08:17 Dose: 10 ml Sodium Chloride (Saline Flush) 10 ml IV Q12 [facility] Last Admin: 05/03/18 10:18 Dose: 10 ml Vitamin D (Vitamin D3) 2,000 unit PO DAILY [facility] Last Admin: 05/03/18 10:17 Dose: 2,000 unit Warfarin Sodium (Coumadin Per Pharmacy) 1 order PO [facility] Medical - PN: A/P - Time Spent With Patient Total time spent is greater than 50% in coordination of care (as documented) at patient's floor/unit and/or counseling patient: - Narrative A/P Narrative: a/p Anasarca Acute cor pulmonale Morbid obesity Obstructiev sleep apnea Acute on Chronic renal failure Atrial fibrillation, s/p pacemaker Bed bound status Decubitus ulcer, h/o HTN Plan D/c anti hypertensives d/c acetazolamide and see how his metabolic alkalosis trends he is neg 28L since admission, still has depended edema, but much better than admission Discharge planning on hold as safe d/c cannot be established due to the fact that sonam is bed bound and cannot go to therapy, or labs to have workup done Case management trying to find place for him Continue bumex bid, and metolozone continue digoxin q48hrs and coumadin, INR therapeutic continue prn pain meds Pt does report constipatino today, oral miralax to be given continue wound care management per wound care physician. DVT on coumadin with therapeutic INR Full code . Medical - PN: Qual - VTE Deep Vein Thrombosis/Pulmonary Embolism Present on Admission: No
[2018-05-03] MEDS: DIGOXIN 125 MCG TABLET PO SCH (14:12)
[2018-05-03] MEDS ORDERED: WARFARIN 2.5 MG TABLET PO ONE (15:00)
[2018-05-03] MEDS: POLYETHYLENE GLYCOL 3350 17 GM PACKET PO PRN (15:41)
[2018-05-04] MEDS: 0.9 % SODIUM CHLORIDE 10 ML SYRINGE IV PRN (04:33)
--- NOTE | 2018-05-04 06:54 | Nephrology Progress Note ---
Subjective Patient information: Note initiated : 05/04/18 at 6:52 am Branden Espinosa is a [id number] male with chronic kidney disease stage 3, chronic anemia associated with chronic kidney disease, generalized edema, hypertension, morbid obesity, cor pulmonale, chronic atrial fibrillation on Coumadin (Echo on 12/03/17: LVEF 48%, mild global hypokinesis, right ventricle severely dilated, severe pulmonary hypertension), admitted on 04/20/18 for acute on chronic renal failure with fluid overload. Chief Complaint: Worsening leg edema Principal diagnosis: Acute on chronic renal failure with fluid overload Interval history: Discharge pending Pertinent ROS: Weakness Edema Objective - Vital Signs Vital signs: Vital Signs Temp Pulse Resp BP Pulse Ox 05/04/18 03:30 97.8 F 106 H 16 94/56 95 05/03/18 23:45 97.7 F 99 H 16 105/70 90 05/03/18 19:50 97.4 F 92 H 16 111/74 98 05/03/18 12:00 97.2 F 85 16 120/75 95 05/03/18 10:09 97 05/03/18 07:32 97.0 F 90 16 118/73 95 Intake and Output 05/03/18 05/04/18 05/04/18 21:59 05:59 13:59 Intake Total 50 / 50 Output Total 1125 / 1125 675 / 675 Balance -1125 / -1124 -625 / -625 Intake: Oral 50 / 50 Output: Void Amount 1125 / 1125 675 / 675 Other: Meal Lunch 2x peanut butter & 5x Vanilla wafers Percent of Meal Consumed 75% 100% Intake & Output: Intake & Output 05/03/18 05/04/18 05/04/18 21:59 05:59 13:59 Intake Total 50 / 50 Output Total 1125 / 1125 675 / 675 Balance -1125 / -112 -625 / -625 Intake: Oral 50 / 50 Output: Void Amount 1125 / 1125 675 / 675 Other: Meal Lunch 2x peanut butter & 5x Vanilla wafers Percent of Meal Consumed 75% 100% - General Appearance General appearance: obese, fatigue EENT: mucous membranes dry Neck: supple Respiratory: clear Cardiology: edema Gastrointestinal: no tenderness Integumentary: hyperpigmentation, chronic venous stasis Neurologic: no focal deficit, alert and oriented x3 Musculoskeletal: no deformities Psychiatric: mood/affect appropriate, cooperative - Lab 05/02/18 04:15 05/02/18 04:15 Most recent lab results Calcium 9.2 mg/dl (8.6-10.4) 05/02/18 04:15 Phosphorus 2.7 mg/dL (2.7-4.5) 05/02/18 04:15 Magnesium 2.1 mg/dL (1.6-2.5) 05/02/18 04:15 Assessment and Plan (1) Acute on chronic kidney failure Renal US on 12/31/17: Slightly echogenic renal parenchyma bilaterally which may be seen with chronic medical renal disease. Kidneys are otherwise anatomically normal. Progress: Urine output: Adequate eGFR ~40 at baseline Status: Acute Priority: Medium Qualifiers: Acute renal failure type: unspecified Chronic kidney disease stage: stage 3 (moderate) Qualified Code(s): N17.9 - Acute kidney failure, unspecified; N18.3 - Chronic kidney disease, stage 3 (moderate) (2) Secondary hyperparathyroidism of renal origin Work up: Labs on 02/23/18: Vitamin D Total (25-Hydroxy) 18 Labs on 04/22/18: iPTH 98.7 Plan: Cholecalciferol 2,000 unit daily started Status: Chronic Priority: Medium (3) Persistent proteinuria Labs on 04/20/18: Urinalysis yellow, hazy, pH 5.0, SG 1.013, protein negative, occult blood negative, random protein/creatinine ratio 240 mg/g creatinine and random urine sodium 49. Labs on 12/31/17: Urinalysis yellow, hazy, pH 6.0, SG 1.012, protein negative, occult blood 0.03, no cellular casts, random protein/creatinine ratio 230 mg/g creatinine and random microalbumin/creatinine ratio 19 mg/g creatinine. New work up: UPEP showed monoclonal proteins SPEP was consistent with chronic inflammation Labs on 05/01/18: Serum free kappa light chains 322, serum free lambda light chains 135, serum free kappa/lambda light chain ratio 2.38, serum PATRIZIA TNP. Status: Chronic Priority: Medium (4) Other fluid overload Fluid overload associated with chronic cor pulmonale (Echo on 12/03/17: LVEF 48% , mild global hypokinesis, right ventricle severely dilated, severe pulmonary hypertension). Treatment: Bumex 2 mg PO BIDD, Metolazone 2.5 mg PO QAM and Potassium Chloride 20 mEq PO QAM. I recommended adequate treatment of obstructive sleep apnea. He stated he is not using his new CPAP because it turns of for air leak. He is still using the old one but does not think pressures are enough. I recommended calling the service for evaluation. Status: Chronic Priority: Medium (5) Anemia in stage 3 chronic kidney disease No iron deficiency No need for erythropoietin Status: Chronic Priority: Medium
[2018-05-04] MEDS: BUMETANIDE 1 MG TABLET PO SCH ×2 (07:25→16:05)
[2018-05-04] MEDS: POTASSIUM CHLORIDE 20 MEQ TABLET PO SCH (07:25)
[2018-05-04] MEDS: HYDROcodone/APAP 10/325MG TABLET PO PRN (07:31)
[2018-05-04] MEDS: METOLAZONE 2.5 MG TABLET PO SCH ×2 (07:32→07:40)
[2018-05-04 08:37] LABS: Blood Urea Nitrogen 49 mg/dl (6-20)
[2018-05-04] MEDS: DOCUSATE SODIUM 100 MG CAPSULE PO SCH ×2 (08:46→19:32)
[2018-05-04] MEDS: SENNOSIDES 1 TABLET PO SCH ×2 (08:46→19:32)
[2018-05-04] MEDS: VITAMIN D3 1,000 UNIT TABLET PO SCH (08:46)
[2018-05-04] MEDS: 0.9 % SODIUM CHLORIDE 10 ML SYRINGE IV SCH ×2 (09:00→19:32)
--- NOTE | 2018-05-04 10:38 | Internal Med Progress Note ---
Medical - PN: Subj Patient information: Note initiated : 05/04/18 at 10:35 am Service Date, if different from initiated Date: [] Patient: Branden Espinosa 57 y/o M admitted on 04/20/18 for Worsening Renal Failure. Chief Complaint: [] Interval history: Mr. Espinosa is a 57 year old Male with history of morbid obesity, bedbound, severe pulmonary hypertension, congestive heart failure, chronic kidney disease atrial fibrillation. The patient presents to the hospital for worsening shortness of breath and increased edema in his body. The patient was discharged from this facility I believe on 20 March. He was transferred to [facility] for placement of a pacemaker. His admission in March was also for increased swelling, worsening renal function and was treated as congestive heart failure. At that point in time the patient was supratherapeutic and his INR as well as supratherapeutic and his digoxin level. Digoxin was held. The patient eventually was transferred to a higher center for placement of a pacemaker because of significant cardiac pauses. He underwent the pacemaker placement and was discharged from the facility. According to the patient since his discharge from the tertiary facility the patient has been having increased swelling in his lower extremities. This has been progressively getting worse, this has been accompanied by shortness of breath. He denies any other acute complaints or concerns. He denies taking in too much fluid he is watching his salt intake and is not taking any NSAIDs. The patient denies any chest pain denies any dizziness he does have intermittent changes in vision. The patient was being followed by nephrology in the outpatient, his dose of diuretics were being changed however despite this the patient's edema kept getting worse and therefore the patient was asked to come to the emergency room for evaluation. In the ER the patient was noted to have worsening renal failure, elevated bnp, significant edema, cxr was clear, showed resolving pna, ekg showed poor voltate , afib, 04/21 Patient seen and examined, overnight was not able to sleep well, there was some malfunction in the bariatric bed which kept beeping. Patient tired this morning. He has extensive erythema on his back possible fungal rash. Patient has not had a bowel movement for the last few days wanting a stool softener. He notes his shortness of breath is somewhat better but still not able to lie flat, denies any chest pain nausea vomiting. Appreciate nephrology input. Patient remains on IV Lasix, negative balance since yesterday,-[id number] 04/22 Pt seen examined, tired today, did not sleep well, bp on the lower end of normal , neg 1500 yesterday Pt has no other complaints. had bm this after noon. nephrology following. labs stable. 04/23 Pt seen examined, slept well last night, denies any acute complaints, noted some chest discomfort yesterday, no chest tightness or pressure, just a flicker, Pt is already anticoagulated with coumadin and INR is therapeutic The patient Creat is trending down, creat is 2.2, He is diuresing well, Neg 5L since admission Plan to use chlorothiazide this afternoon, and then followed by lasix to see if we can improve diuresis 04/24 Pt seen examined, no acute overnight events, [place] [id number] since admission, still has significant edema Start on metolozone 5mg daily, continue IV lasix 80 bid add acetazolamide one dose today for worsening metabolic alkalosis. BP stable HR stable Dig level 1.2-1.3, pt has pacemaker, intermittently pacing on tele inr therapeutic PT feels cpap is not giving enough pressure, even at 14mmhg, have spoken with RT to look into the device. 04/24 [place] [id number] since admission, pt feels ok, still has significant dependent edema, I feel we can switch him to oral meds and see if he continues to diurese on same d/c iv lasix, start on po bumex, and metolozone 5mg before bumex and monitor urine output The patient bed was not zeroed in, and therefore the daily weights are not accurate, I am not using daily weight to monitor treatment at this time. 04/26-patient doing well. No overnight events. Over 1600 cc net negative in 24 hours. Lower dose of metolazone. Continue Diamox due to contraction alkalosis. Patient undergoing strengthening exercises. Case management arranging SNF transfer. No fever chills shortness of breath. 04/27 -patient doing well. No overnight events. No concerns per staff. No fever chills or shortness of breath. Diuresing well. Additional 2700 cc negative. Bicarbonate at 42 with contraction alkalosis on Diamox. Creatinine 1.8. Ongoing physical therapy. Nephrology on board. 04/28-patient doing better. Ongoing diuresis. No dyspnea/chest pain. Ongoing physical therapy. Continues to be bedridden due to morbid obesity. Anticipate SNF transfer. Case management and coordinating. Creatinine 1.9. Bicarbonate 44 on twice-daily Diamox. April 29-patient doing well. No overnight events. Awaiting SNF transfer. Additional 2000 cc net negative. Bicarbonate 45. On Diamox for contraction alkalosis. Creatinine 1.7. Ongoing physical therapy. No concerns per staff 04/30-patient doing well. No overnight events. Diuresis additional 2400 cc. On combination diuretics. Electrolytes stable. Ongoing physical therapy. Case management coordinating discharge planning. Likely likely stay inpatient through the weekend until placement 05/01-patient doing well. No overnight events. No concerns per staff. No fever chills diuresing well. Only 6/metolazone/acetazolamide. Proteinuria currently being managed by nephrology. Electrophoresis/free light chains ordered per nephrology. Case management arranging SNF transfer. Anticipate additional 48 hours until placement can be arranged. 05/02-patient resting comfortably. No overnight events. Additional 2000 cc net negative fluid status. Creatinine around 2. Persistent alkalosis with bicarbonate 43. On twice a day Diamox. Still awaiting SNF placement. Significant excoriation bilateral dependent sacral gluteal area, on frequent turning/repositioning to avoid decubiti. Ongoing physical therapy 05/03 Pt seen examined, no acute overnight issues, tolerating po diet well, neg 28L since admission, pt labs are stable, on IV acetazolamide, bumex and metolozone. Will d/c the IV acetazolamide and see how his bicarb trends No safe discharge plan yet. Working with case management for discharge planning. 05/04 pt seen examined, no acute issue tolerating po well neg 2L since yesterday bicarb stable off acetazolamide awating xfer, cret 1.7, improved from before. Pertinent ROS: Denies headache, dizziness Denies chest pain, palpitations Denies cough or shortness of breath Denies abdominal pain, nausea or vomiting. - Constitutional Vitals: Vital Signs Temp Pulse Resp BP Pulse Ox 98.0 F 98 H 18 111/73 94 05/04/18 07:45 05/04/18 07:45 05/04/18 07:45 05/04/18 07:45 05/04/18 07:45 Period Temp Pulse Resp BP Sys/Andujar Pulse Ox Last 24 Hr 97.2 F-98.0 F 85-106 16-18 94-120/56-75 90-98 Intake and Output 05/03/18 05/04/18 05/04/18 21:59 05:59 13:59 Intake Total 50 / 50 70 / 70 Output Total 1125 / 1125 675 / 675 975 / 975 Balance -1125 / -1125 -625 / -625 -905 / -905 Intake & Output: Intake & Output 05/03/18 05/04/18 05/04/18 21:59 05:59 13:59 Intake Total 50 / 50 70 / 70 Output Total 1125 / 1125 675 / 675 975 / 975 Balance -1125 / -1125 -625 / -625 -905 / -905 Intake: Oral 50 / 50 70 / 70 Output: Void Amount 1125 / 1125 675 / 675 975 / 975 Other: Meal Lunch 2x peanut butter & 5x Vanilla wafers Breakfast Percent of Meal Consumed 75% 100% 75% Feeding Ability Independent # Voids 1 Exam: Constitutional; Afebrile, cooperative, alert, not in distress.morbid obese Eyes- No icterus, , No periorbital swelling Ears- Ext ear normal, hearing normal to conversation. Neck- Midline trachea, supple Respiratory system: Air Entry equal on both sides, No crackles or wheezing, no rhonchi. ant exam CVS- Rate rhythm irregular, S1,S2 heard, no gallop, no rub. 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 improving edema in dependent regions Medical - PN: Obj Da - Labs CBC & Chem 7: 05/02/18 04:15 05/04/18 07:43 Labs: Abnormal Lab Results 05/04/18 05/04/18 05/03/18 07:43 04:00 04:00 RBC Hgb Hct MCV RDW Lymph # (Auto) PT 23.5 H 27.1 H INR 2.1 H 2.5 H Chloride 89 L Carbon Dioxide 43 H* Anion Gap BUN 49 H Creatinine 1.7 H Uric Acid Direct Bilirubin Alkaline Phosphatase Albumin Globulin Albumin/Globulin Ratio Free [place] LC, Quant Free Lambda LC, Quant Free [place]/Lambda Ratio 05/02/18 05/02/18 05/02/18 04:15 04:15 04:15 RBC 2.83 L Hgb 9.5 L Hct 29.2 L MCV 103.0 H RDW 16.0 H Lymph # (Auto) 0.9 L PT 31.8 H INR 3.0 H Chloride 90 L Carbon Dioxide 44 H* Anion Gap 5.0 L BUN 50 H Creatinine 2.0 H Uric Acid 14.5 H Direct Bilirubin 0.5 H Alkaline Phosphatase 124 H Albumin 3.1 L Globulin 4.8 H Albumin/Globulin Ratio 0.6 L Free [place] LC, Quant Free Lambda LC, Quant Free [place]/Lambda Ratio 05/01/18 03:55 RBC Hgb Hct MCV RDW Lymph # (Auto) PT INR Chloride Carbon Dioxide Anion Gap BUN Creatinine Uric Acid Direct Bilirubin Alkaline Phosphatase Albumin Globulin Albumin/Globulin Ratio Free [place] LC, Quant 322.25 H Free Lambda LC, Quant 135.14 H Free [place]/Lambda Ratio 2.385 H Meds: Medications Acetaminophen (Tylenol) 650 mg PO Q6HP PRN PRN Reason: PAIN/FEVER > 101 Hydrocodone Bitart/Acetaminophen ([place] 10/325mg) 2 tab PO Q6HP PRN PRN Reason: Pain Last Admin: 05/04/18 07:31 Dose: 2 tab Bumetanide (Bumex) 2 mg PO BIDD [facility] Last Admin: 05/04/18 07:25 Dose: 2 mg Digoxin (Lanoxin) 125 mcg PO Q48H [facility] Last Admin: 05/03/18 14:12 Dose: 125 mcg Docusate Sodium (Colace) 100 mg PO BID [facility] Last Admin: 05/04/18 08:46 Dose: 100 mg Heparin Sodium (Porcine) (Heparin Flush) 2 ml IV Q12 [facility] Last Admin: 05/04/18 08:45 Dose: 2 ml Metolazone (Zaroxolyn) 2.5 mg PO DAILY@0730 [facility] Naloxone HCl (Narcan) 0.1 mg IV Q2MIN PRN PRN Reason: Opiate Reversal Ondansetron HCl (Zofran Odt) 4 mg SL Q4HP PRN PRN Reason: Nausea And Vomiting Last Admin: 04/30/18 17:12 Dose: 4 mg Polyethylene Glycol (Miralax) 17 gm PO DAILY PRN PRN Reason: Constipation Last Admin: 05/03/18 15:41 Dose: 17 gm Potassium Chloride (Kdur) 20 meq PO QAMCC [facility] Last Admin: 05/04/18 07:25 Dose: 20 meq Senna (Senokot) 1 tab PO BID [facility] Last Admin: 05/04/18 08:46 Dose: 1 tab Sodium Chloride (Saline Flush) 10 ml IV UD PRN PRN Reason: FLUSH Last Admin: 05/04/18 04:33 Dose: 10 ml Sodium Chloride (Saline Flush) 10 ml IV Q12 [facility] Last Admin: 05/03/18 20:01 Dose: 10 ml Vitamin D (Vitamin D3) 2,000 unit PO DAILY [facility] Last Admin: 05/04/18 08:46 Dose: 2,000 unit Warfarin Sodium (Coumadin Per Pharmacy) 1 order PO [facility] Medical - PN: A/P - Time Spent With Patient Total time spent is greater than 50% in coordination of care (as documented) at patient's floor/unit and/or counseling patient: - Narrative A/P Narrative: a/p Anasarca Acute cor pulmonale Morbid obesity Obstructiev sleep apnea Acute on Chronic renal failure Atrial fibrillation, s/p pacemaker Bed bound status Decubitus ulcer, h/o HTN Plan D/c anti hypertensives d/c acetazolamide ,bicarb stable at 43, [place] 43691 mL since admission, still has depended edema, but much better than admission, improving daily on oral diuretic regime Discharge planning on hold as safe d/c cannot be established due to the fact that patient t is bed bound and cannot go to therapy, or labs to have workup done Case management trying to find place for him Continue bumex bid, and metolozone continue digoxin q48hrs and coumadin, INR therapeutic continue prn pain meds Pt does report constipating today, oral miralax to be given continue wound care management per wound care physician. DVT on coumadin with therapeutic INR Full code . Medical - PN: Qual - VTE Deep Vein Thrombosis/Pulmonary Embolism Present on Admission: No
[2018-05-04] MEDS: POLYETHYLENE GLYCOL 3350 17 GM PACKET PO PRN (13:47)
[2018-05-04] MEDS ORDERED: WARFARIN 3 MG TABLET PO ONE (14:00)
[2018-05-05] MEDS: 0.9 % SODIUM CHLORIDE 10 ML SYRINGE IV PRN (04:18)
--- NOTE | 2018-05-05 06:35 | Nephrology Progress Note ---
Subjective Patient information: Note initiated : 05/05/18 at 6:33 am Branden Espinosa is a [id number] male with chronic kidney disease stage 3, chronic anemia associated with chronic kidney disease, generalized edema, hypertension, morbid obesity, cor pulmonale, chronic atrial fibrillation on Coumadin (Echo on 12/03/17: LVEF 48%, mild global hypokinesis, right ventricle severely dilated, severe pulmonary hypertension), admitted on 04/20/18 for acute on chronic renal failure with fluid overload. Chief Complaint: Worsening leg edema Principal diagnosis: Acute on chronic renal failure with fluid overload Interval history: Discharge pending Pertinent ROS: Weakness Edema Objective - Vital Signs Vital signs: Vital Signs Temp Pulse Resp BP Pulse Ox 05/05/18 04:15 97.9 F 91 H 12 111/71 96 05/04/18 23:46 98.2 F 67 12 113/76 95 05/04/18 20:00 98.4 F 71 12 105/67 96 05/04/18 15:55 98.2 F 93 H 16 111/71 98 05/04/18 11:54 97.9 F 104 H 18 103/62 95 05/04/18 07:45 98.0 F 98 H 18 111/73 94 Intake and Output 05/04/18 05/05/18 05/05/18 21:59 05:59 13:59 Intake Total 180 / 180 100 / 100 Output Total 1300 / 1300 1600 / 1600 Balance -1120 / -1120 -1500 / -1500 Intake: Oral 180 / 180 100 / 100 Output: Void Amount 1300 / 1300 1600 / 1600 # of times incontinent of urine 0 / 0 Other: Meal Magic Cup Percent of Meal Consumed 50% Feeding Ability Independent # Voids 2 Intake & Output: Intake & Output 05/04/18 05/05/18 05/05/18 21:59 05:59 13:59 Intake Total 180 / 180 100 / 100 Output Total 1300 / 1300 1600 / 1600 Balance -1120 / -1120 -1500 / -1500 Intake: Oral 180 / 180 100 / 100 Output: Void Amount 1300 / 1300 1600 / 1600 # of times incontinent of urine 0 / 0 Other: Meal Magic Cup Percent of Meal Consumed 50% Feeding Ability Independent # Voids 2 - General Appearance General appearance: obese, frail EENT: mucous membranes dry Neck: supple Respiratory: clear Cardiology: edema Gastrointestinal: no tenderness Integumentary: hyperpigmentation, chronic venous stasis Neurologic: no focal deficit, alert and oriented x3 Musculoskeletal: no deformities Psychiatric: mood/affect appropriate, cooperative - Lab 05/02/18 04:15 05/04/18 07:43 Most recent lab results Calcium 9.6 mg/dl (8.6-10.4) 05/04/18 07:43 Phosphorus 2.7 mg/dL (2.7-4.5) 05/02/18 04:15 Magnesium 2.1 mg/dL (1.6-2.5) 05/02/18 04:15 Assessment and Plan (1) Acute on chronic kidney failure Renal US on 12/31/17: Slightly echogenic renal parenchyma bilaterally which may be seen with chronic medical renal disease. Kidneys are otherwise anatomically normal. Progress: Urine output: Adequate eGFR ~40 at baseline Status: Acute Priority: Medium Qualifiers: Acute renal failure type: unspecified Chronic kidney disease stage: stage 3 (moderate) Qualified Code(s): N17.9 - Acute kidney failure, unspecified; N18.3 - Chronic kidney disease, stage 3 (moderate) (2) Secondary hyperparathyroidism of renal origin Work up: Labs on 02/23/18: Vitamin D Total (25-Hydroxy) 18 Labs on 04/22/18: iPTH 98.7 Plan: Cholecalciferol 2,000 unit daily Status: Chronic Priority: Medium (3) Persistent proteinuria Labs on 04/20/18: Urinalysis yellow, hazy, pH 5.0, SG 1.013, protein negative, occult blood negative, random protein/creatinine ratio 240 mg/g creatinine and random urine sodium 49. Labs on 12/31/17: Urinalysis yellow, hazy, pH 6.0, SG 1.012, protein negative, occult blood 0.03, no cellular casts, random protein/creatinine ratio 230 mg/g creatinine and random microalbumin/creatinine ratio 19 mg/g creatinine. New work up: UPEP showed monoclonal proteins SPEP was consistent with chronic inflammation Labs on 05/01/18: Serum free kappa light chains 322, serum free lambda light chains 135, serum free kappa/lambda light chain ratio 2.38, serum PATRIZIA TNP. Status: Chronic Priority: Medium (4) Other fluid overload Fluid overload associated with chronic cor pulmonale (Echo on 12/03/17: LVEF 48% , mild global hypokinesis, right ventricle severely dilated, severe pulmonary hypertension). Treatment: Bumex 2 mg PO BIDD, Metolazone 2.5 mg PO QAM and Potassium Chloride 20 mEq PO QAM. I recommended adequate treatment of obstructive sleep apnea. He stated he is not using his new CPAP because it turns of for air leak. He is still using the old one but does not think pressures are enough. I recommended calling the service for evaluation. Status: Chronic Priority: Medium (5) Anemia in stage 3 chronic kidney disease No iron deficiency No need for erythropoietin Status: Chronic Priority: Medium
[2018-05-05] MEDS: METOLAZONE 2.5 MG TABLET PO SCH (06:45)
[2018-05-05] MEDS: BUMETANIDE 1 MG TABLET PO SCH ×2 (08:46→15:00)
[2018-05-05] MEDS: DOCUSATE SODIUM 100 MG CAPSULE PO SCH ×2 (08:47→20:12)
[2018-05-05] MEDS: SENNOSIDES 1 TABLET PO SCH ×2 (08:47→20:12)
[2018-05-05] MEDS: HYDROcodone/APAP 10/325MG TABLET PO PRN ×2 (08:47→14:58)
[2018-05-05] MEDS: POTASSIUM CHLORIDE 20 MEQ TABLET PO SCH (08:47)
[2018-05-05] MEDS: VITAMIN D3 1,000 UNIT TABLET PO SCH (08:47)
[2018-05-05] MEDS: 0.9 % SODIUM CHLORIDE 10 ML SYRINGE IV SCH ×2 (08:49→20:12)
--- NOTE | 2018-05-05 10:46 | Internal Med Progress Note ---
Medical - PN: Subj Patient information: Note initiated : 05/05/18 at 10:44 am Service Date, if different from initiated Date: [] Patient: Branden Espinosa 57 y/o M admitted on 04/20/18 for Worsening Renal Failure. Chief Complaint: [] Interval history: Mr. Espinosa is a 57 year old Male with history of morbid obesity, bedbound, severe pulmonary hypertension, congestive heart failure, chronic kidney disease atrial fibrillation. The patient presents to the hospital for worsening shortness of breath and increased edema in his body. The patient was discharged from this facility I believe on 20 March. He was transferred to [facility] for placement of a pacemaker. His admission in March was also for increased swelling, worsening renal function and was treated as congestive heart failure. At that point in time the patient was supratherapeutic and his INR as well as supratherapeutic and his digoxin level. Digoxin was held. The patient eventually was transferred to a higher center for placement of a pacemaker because of significant cardiac pauses. He underwent the pacemaker placement and was discharged from the facility. According to the patient since his discharge from the tertiary facility the patient has been having increased swelling in his lower extremities. This has been progressively getting worse, this has been accompanied by shortness of breath. He denies any other acute complaints or concerns. He denies taking in too much fluid he is watching his salt intake and is not taking any NSAIDs. The patient denies any chest pain denies any dizziness he does have intermittent changes in vision. The patient was being followed by nephrology in the outpatient, his dose of diuretics were being changed however despite this the patient's edema kept getting worse and therefore the patient was asked to come to the emergency room for evaluation. In the ER the patient was noted to have worsening renal failure, elevated bnp, significant edema, cxr was clear, showed resolving pna, ekg showed poor voltate , afib, 04/21 Patient seen and examined, overnight was not able to sleep well, there was some malfunction in the bariatric bed which kept beeping. Patient tired this morning. He has extensive erythema on his back possible fungal rash. Patient has not had a bowel movement for the last few days wanting a stool softener. He notes his shortness of breath is somewhat better but still not able to lie flat, denies any chest pain nausea vomiting. Appreciate nephrology input. Patient remains on IV Lasix, negative balance since yesterday,-1550 04/22 Pt seen examined, tired today, did not sleep well, bp on the lower end of normal , neg 1500 yesterday Pt has no other complaints. had bm this after noon. nephrology following. labs stable. 04/23 Pt seen examined, slept well last night, denies any acute complaints, noted some chest discomfort yesterday, no chest tightness or pressure, just a flicker, Pt is already anticoagulated with coumadin and INR is therapeutic The patient Creat is trending down, creat is 2.2, He is diuresing well, Neg 5L since admission Plan to use chlorothiazide this afternoon, and then followed by lasix to see if we can improve diuresis 04/24 Pt seen examined, no acute overnight events, [place] [id number] since admission, still has significant edema Start on metolozone 5mg daily, continue IV lasix 80 bid add acetazolamide one dose today for worsening metabolic alkalosis. BP stable HR stable Dig level 1.2-1.3, pt has pacemaker, intermittently pacing on tele inr therapeutic PT feels cpap is not giving enough pressure, even at 14mmhg, have spoken with RT to look into the device. 04/24 [place] [id number] [place] admission, pt feels ok, still has significant dependent edema, I feel we can switch him to oral meds and see if he continues to diurese on same d/c iv lasix, start on po bumex, and metolozone 5mg before bumex and monitor urine output The patient bed was not zeroed in, and therefore the daily weights are not accurate, I am not using daily weight to monitor treatment at this time. 04/26-patient doing well. No overnight events. Over 1600 cc net negative in 24 hours. Lower dose of metolazone. Continue Diamox due to contraction alkalosis. Patient undergoing strengthening exercises. Case management arranging SNF transfer. No fever chills shortness of breath. 04/27 -patient doing well. No overnight events. No concerns per staff. No fever chills or shortness of breath. Diuresing well. Additional 2700 cc negative. Bicarbonate at 42 with contraction alkalosis on Diamox. Creatinine 1.8. Ongoing physical therapy. Nephrology on board. 04/28-patient doing better. Ongoing diuresis. No dyspnea/chest pain. Ongoing physical therapy. Continues to be bedridden due to morbid obesity. Anticipate SNF transfer. Case management and coordinating. Creatinine 1.9. Bicarbonate 44 on twice-daily Diamox. April 29-patient doing well. No overnight events. Awaiting SNF transfer. Additional 2000 cc net negative. Bicarbonate 45. On Diamox for contraction alkalosis. Creatinine 1.7. Ongoing physical therapy. No concerns per staff 04/30-patient doing well. No overnight events. Diuresis additional 2400 cc. On combination diuretics. Electrolytes stable. Ongoing physical therapy. Case management coordinating discharge planning. Likely likely stay inpatient through the weekend until placement 05/01-patient doing well. No overnight events. No concerns per staff. No fever chills diuresing well. Only 6/metolazone/acetazolamide. Proteinuria currently being managed by nephrology. Electrophoresis/free light chains ordered per nephrology. Case management arranging SNF transfer. Anticipate additional 48 hours until placement can be arranged. 05/02-patient resting comfortably. No overnight events. Additional 2000 cc net negative fluid status. Creatinine around 2. Persistent alkalosis with bicarbonate 43. On twice a day Diamox. Still awaiting SNF placement. Significant excoriation bilateral dependent sacral gluteal area, on frequent turning/repositioning to avoid decubiti. Ongoing physical therapy 05/03 Pt seen examined, no acute overnight issues, tolerating po diet well, neg 28L since admission, pt labs are stable, on IV acetazolamide, bumex and metolozone. Will d/c the IV acetazolamide and see how his bicarb trends No safe discharge plan yet. Working with case management for discharge planning. 05/04 pt seen examined, no acute issue tolerating po well neg 2L since yesterday bicarb stable off acetazolamide awating xfer, cret 1.7, improved from before. 05/05 Pt seen examined no acute overnight events, he is neg 4 L yesterday, total of neg 34L since admission no new complaints he did get out of bed to chair today with the help of 3 people, not strong enough to do by self, some knee pain after the transfer awaiting social media sr strategy manager to find place for the patient. Pertinent ROS: Denies headache, dizziness Denies chest pain, palpitations Denies cough or shortness of breath Denies abdominal pain, nausea or vomiting. - Constitutional Vitals: Vital Signs Temp Pulse Resp BP Pulse Ox 97.7 F 88 12 110/75 96 05/05/18 08:00 05/05/18 08:00 05/05/18 08:00 05/05/18 08:00 05/05/18 08:00 Period Temp Pulse Resp BP Sys/Andujar Pulse Ox Last 24 Hr 97.7 F-98.4 F 67-104 12-18 103-113/62-76 95-98 Intake and Output 05/04/18 05/05/18 05/05/18 21:59 05:59 13:59 Intake Total 180 / 180 100 / 100 90 / 90 Output Total 1300 / 1300 1600 / 1600 200 / 200 Balance -1120 / -1120 -1500 / -1500 -110 / -110 Intake & Output: Intake & Output 05/04/18 05/05/18 05/05/18 21:59 05:59 13:59 Intake Total 180 / 180 100 / 100 90 / 90 Output Total 1300 / 1300 1600 / 1600 200 / 200 Balance -1120 / -1120 -1500 / -1500 -110 / -110 Intake: Oral 180 / 180 100 / 100 90 / 90 Output: Void Amount 1300 / 1300 1600 / 1600 200 / 200 # of times incontinent of urine 0 / 0 Other: Meal Magic Cup Percent of Meal Consumed 50% Feeding Ability Independent # Voids 2 Exam: Constitutional; Afebrile, cooperative, alert, not in distress. Eyes- No icterus, , No periorbital swelling Ears- Ext ear normal, hearing normal to conversation. Neck- Midline trachea, supple Respiratory system: Air Entry equal on both sides, No crackles or wheezing, no rhonchi. CVS- Rate regular, rhythm irregular , S1,S2 heard, no gallop, no rub. Abdomen- Soft nontender abdomen, no organomegaly, no tenderness, no guarding or rigidity, W[employer] EN[employer] ENGINEER- AOOx3, moving all extremities, no gross focal deficit noted. Medical - PN: Obj Da - Labs CBC & Chem 7: 05/02/18 04:15 05/04/18 07:43 Labs: Abnormal Lab Results 05/05/18 05/04/18 05/04/18 04:00 07:43 04:00 PT 21.3 H 23.5 H INR 1.8 H 2.1 H Chloride 89 L Carbon Dioxide 43 H* BUN 49 H Creatinine 1.7 H 05/03/18 04:00 PT 27.1 H INR 2.5 H Chloride Carbon Dioxide BUN Creatinine Meds: Medications Acetaminophen (Tylenol) 650 mg PO Q6HP PRN PRN Reason: PAIN/FEVER > 101 Hydrocodone Bitart/Acetaminophen ([place] 10/325mg) 2 tab PO Q6HP PRN PRN Reason: Pain Last Admin: 05/05/18 08:47 Dose: 2 tab Bumetanide (Bumex) 2 mg PO BIDD [facility] Last Admin: 05/05/18 08:46 Dose: 2 mg Digoxin (Lanoxin) 125 mcg PO Q48H [facility] Last Admin: 05/03/18 14:12 Dose: 125 mcg Docusate Sodium (Colace) 100 mg PO BID [facility] Last Admin: 05/05/18 08:47 Dose: 100 mg Heparin Sodium (Porcine) (Heparin Flush) 2 ml IV Q12 [facility] Last Admin: 05/05/18 08:49 Dose: 2 ml Metolazone (Zaroxolyn) 2.5 mg PO DAILY@0730 [facility] Last Admin: 05/05/18 06:45 Dose: 2.5 mg Naloxone HCl (Narcan) 0.1 mg IV Q2MIN PRN PRN Reason: Opiate Reversal Ondansetron HCl (Zofran Odt) 4 mg SL Q4HP PRN PRN Reason: Nausea And Vomiting Last Admin: 04/30/18 17:12 Dose: 4 mg Polyethylene Glycol (Miralax) 17 gm PO DAILY PRN PRN Reason: Constipation Last Admin: 05/04/18 13:47 Dose: 17 gm Potassium Chloride (Kdur) 20 meq PO QAMCC [facility] Last Admin: 05/05/18 08:47 Dose: 20 meq Senna (Senokot) 1 tab PO BID [facility] Last Admin: 05/05/18 08:47 Dose: 1 tab Sodium Chloride (Saline Flush) 10 ml IV UD PRN PRN Reason: FLUSH Last Admin: 05/05/18 04:18 Dose: 10 ml Sodium Chloride (Saline Flush) 10 ml IV Q12 [facility] Last Admin: 05/05/18 08:49 Dose: 10 ml Vitamin D (Vitamin D3) 2,000 unit PO DAILY [facility] Last Admin: 05/05/18 08:47 Dose: 2,000 unit Warfarin Sodium (Coumadin Per Pharmacy) 1 order PO UD [facility] Medical - PN: A/P - Time Spent With Patient Total time spent is greater than 50% in coordination of care (as documented) at patient's floor/unit and/or counseling patient: - Narrative A/P Narrative: a/p Anasarca Acute cor pulmonale Morbid obesity Obstructiev sleep apnea Acute on Chronic renal failure Atrial fibrillation, s/p pacemaker Bed bound status Decubitus ulcer, h/o HTN Plan D/c anti hypertensives d/c acetazolamide ,bicarb stable at 43, recheck labs [place] 48[address] mL since admission, still has depended edema, but much better than admission, improving daily on oral diuretic regime. may consider liberalizing water intake in the near future. Discharge planning on hold as safe d/c cannot be established due to the fact that patient t is bed bound and cannot go to therapy, or labs to have workup done Case management trying to find place for him Continue bumex bid, and metolozone with kcl supplemnts. continue digoxin q48hrs and coumadin, INR managed by pharmacy continue prn pain meds continue wound care management per wound care physician. DVT on coumadin with therapeutic INR Full code . Medical - PN: Qual - VTE Deep Vein Thrombosis/Pulmonary Embolism Present on Admission: No
[2018-05-05] MEDS: DIGOXIN 125 MCG TABLET PO SCH (13:43)
[2018-05-05] MEDS ORDERED: WARFARIN 5 MG TABLET PO ONE (14:00)
--- NOTE | 2018-05-05 18:19 | General Surgery Progress Note ---
Subjective Patient reports: other (Skin and wound care f/u. Patient seen with [employer] worker [employer].) Narrative: Note initiated : 05/05/18 at 6:15 pm Service Date, if different from initiated Date: [] Patient: Branden Espinosa 57 y/o M admitted on 04/20/18 for Worsening Renal Failure. Chief Complaint: [] Objective Temp Pulse Resp BP Pulse Ox 97.9 F 80 12 110/62 95 05/05/18 15:52 05/05/18 15:52 05/05/18 15:52 05/05/18 15:52 05/05/18 15:52 AVSS. Reviewed IM and Nephrology input. Examined skin areas / pressure points and Right lower lateral leg scar and ulcer site. This is dry and clean. There is improvement in turgor of skin with gradual diuresis. Skin cleansing and moisturizer applications as scheduled. Nothing more to add. - Additional Data Intake & Output - Last 24 hours: Intake & Output 05/03/18 05/04/18 05/05/18 05/06/18 05:59 05:59 05:59 05:59 Intake Total 550 / 550 140 / 140 770 / 770 520 / 520 Output Total 3250 / 3250 2200 / 2200 4925 / 4925 1350 / 1350 Balance -2700 / -2700 -2060 / -2060 -4155 / -4155 -830 / -830 Weight 470 lb - Labs 05/02/18 04:15 05/04/18 07:43 Assessment and Plan (1) Infected decubitus ulcer Status: Chronic Current Visit: No (2) Ulcer of right lower extremity with fat layer exposed Problem details: Palliative wound care. Clean with NS and apply antibiotic soaked wet / dry dressing changes three times a day. Status: Chronic Current Visit: No - Narrative A/P Narrative: Assessment: Stable from wound and skin care point of view. Plan: Continue current management. - Time Spent With Patient Total time spent is greater than 50% in coordination of care (as documented) at patient's floor/unit and/or counseling patient: 15 - 24 minutes
[2018-05-06 06:11] LABS: ALT/SGPT 6 U/l (0-40); Albumin 3.2 gm/dL (3.2-5.2); Albumin/Globulin Ratio 0.6 (1.0-2.3); Alkaline Phosphatase 126 U/L (39-117); Bilirubin,Direct 0.5 mg/dL (0.0-0.3); Blood Urea Nitrogen 47 mg/dl (6-20); Gamma Glutamyl Transpeptidase 68 U/L (8-61); Uric Acid 13.8 mg/dL (2.5-8.0)
--- NOTE | 2018-05-06 07:34 | Nephrology Progress Note ---
Subjective Patient information: Note initiated : 05/06/18 at 7:32 am Branden Espinosa is a 46-[id number]-ozu male with chronic kidney disease stage 3, chronic anemia associated with chronic kidney disease, generalized edema, hypertension, morbid obesity, cor pulmonale, chronic atrial fibrillation on Coumadin (Echo on 12/03/17: LVEF 48%, mild global hypokinesis, right ventricle severely dilated, severe pulmonary hypertension), admitted on 04/20/18 for acute on chronic renal failure with fluid overload. Chief Complaint: Worsening leg edema Principal diagnosis: Acute on chronic renal failure with fluid overload Interval history: Discharge pending Pertinent ROS: Weakness Edema Objective - Vital Signs Vital signs: Vital Signs Temp Pulse Resp BP Pulse Ox 05/06/18 06:50 98.6 F 20 120/78 90 05/06/18 03:30 98.9 F 82 16 120/71 95 05/05/18 23:24 98.0 F 76 16 117/74 94 05/05/18 20:00 94 05/05/18 19:49 97.9 F 96 H 16 104/67 94 05/05/18 15:52 97.9 F 80 12 110/62 95 05/05/18 12:00 98.0 F 80 12 113/72 95 05/05/18 08:00 97.7 F 88 12 110/75 96 Intake and Output 05/05/18 05/06/18 05/06/18 21:59 05:59 13:59 Intake Total 340 / 340 360 / 360 Output Total 1250 / 1250 775 / 775 Balance -910 / -910 -415 / -415 Intake: Oral 340 / 340 360 / 360 Output: Void Amount 1250 / 1250 775 / 775 Other: Meal Dinner Percent of Meal Consumed 100% Feeding Ability Independent # Voids 1 2 Intake & Output: Intake & Output 05/05/18 05/06/18 05/06/18 21:59 05:59 13:59 Intake Total 340 / 340 360 / 360 Output Total 1250 / 1250 775 / 775 Balance -910 / -910 -415 / -415 Intake: Oral 340 / 340 360 / 360 Output: Void Amount 1250 / 1250 775 / 775 Other: Meal Dinner Percent of Meal Consumed 100% Feeding Ability Independent # Voids 1 2 - General Appearance General appearance: obese, fatigue EENT: mucous membranes dry Neck: supple Respiratory: clear Cardiology: edema Gastrointestinal: no tenderness Integumentary: hyperpigmentation, chronic venous stasis Neurologic: no focal deficit, alert and oriented x3 Musculoskeletal: no deformities Psychiatric: mood/affect appropriate, cooperative - Lab 05/02/18 04:15 05/06/18 04:00 Most recent lab results Calcium 9.8 mg/dl (8.6-10.4) 05/06/18 04:00 Phosphorus 2.6 mg/dL (2.7-4.5) L 05/06/18 04:00 Magnesium 2.0 mg/dL (1.6-2.5) 05/06/18 04:00 Assessment and Plan (1) Acute on chronic kidney failure Renal US on 12/31/17: Slightly echogenic renal parenchyma bilaterally which may be seen with chronic medical renal disease. Kidneys are otherwise anatomically normal. Progress: Urine output: Adequate eGFR ~40 at baseline Plan: OK to discharge. I will follow up in May as outpatient. Status: Acute Priority: Medium Qualifiers: Acute renal failure type: unspecified Chronic kidney disease stage: stage 3 (moderate) Qualified Code(s): N17.9 - Acute kidney failure, unspecified; N18.3 - Chronic kidney disease, stage 3 (moderate) (2) Secondary hyperparathyroidism of renal origin Work up: Labs on 02/23/18: Vitamin D Total (25-Hydroxy) 18 Labs on 04/22/18: iPTH 98.7 Plan: Cholecalciferol 2,000 unit daily Status: Chronic Priority: Medium (3) Persistent proteinuria Labs on 04/20/18: Urinalysis yellow, hazy, pH 5.0, SG 1.013, protein negative, occult blood negative, random protein/creatinine ratio 240 mg/g creatinine and random urine sodium 49. Labs on 12/31/17: Urinalysis yellow, hazy, pH 6.0, SG 1.012, protein negative, occult blood 0.03, no cellular casts, random protein/creatinine ratio 230 mg/g creatinine and random microalbumin/creatinine ratio 19 mg/g creatinine. New work up: UPEP showed monoclonal proteins SPEP was consistent with chronic inflammation Labs on 05/01/18: Serum free kappa light chains 322, serum free lambda light chains 135, serum free kappa/lambda light chain ratio 2.38, serum PATRIZIA TNP. Status: Chronic Priority: Medium (4) Other fluid overload Fluid overload associated with chronic cor pulmonale (Echo on 12/03/17: LVEF 48% , mild global hypokinesis, right ventricle severely dilated, severe pulmonary hypertension). Treatment: Bumex 2 mg PO BIDD, Metolazone 2.5 mg PO QAM and Potassium Chloride 20 mEq PO QAM. I recommended adequate treatment of obstructive sleep apnea. He stated he is not using his new CPAP because it turns of for air leak. He is still using the old one but does not think pressures are enough. I recommended calling the service for evaluation. Status: Chronic Priority: Medium (5) Anemia in stage 3 chronic kidney disease No iron deficiency No need for erythropoietin Status: Chronic Priority: Medium
[2018-05-06] MEDS: BUMETANIDE 1 MG TABLET PO SCH ×2 (08:18→16:41)
[2018-05-06] MEDS: HYDROcodone/APAP 10/325MG TABLET PO PRN (08:18)
[2018-05-06] MEDS: METOLAZONE 2.5 MG TABLET PO SCH (08:19)
[2018-05-06] MEDS: POTASSIUM CHLORIDE 20 MEQ TABLET PO SCH (08:19)
[2018-05-06] MEDS: DOCUSATE SODIUM 100 MG CAPSULE PO SCH ×2 (09:20→20:03)
[2018-05-06] MEDS: VITAMIN D3 1,000 UNIT TABLET PO SCH (09:20)
[2018-05-06] MEDS: SENNOSIDES 1 TABLET PO SCH ×2 (09:20→20:03)
[2018-05-06] MEDS: 0.9 % SODIUM CHLORIDE 10 ML SYRINGE IV SCH ×2 (10:04→20:02)
[2018-05-06 10:08] LABS: ABG Methemoglobin 0.3 % (0.4-1.5); VBG Base Excess 14.8 (-2.0-2.0); VBG HCO3 41.9 mmol/L (24.0-28.0); VBG Oxygen Saturation 85.2 % (40.0-70.0); VBG PCO2 68.4 mmHg (41.0-51.0); VBG PH 7.41 U (7.32-7.42); VBG PO2 57 mmHg (25-40)
[2018-05-06] MEDS ORDERED: WARFARIN 5 MG TABLET PO ONE (14:00)
--- NOTE | 2018-05-06 14:19 | Internal Med Progress Note ---
Medical - PN: Subj Patient information: Note initiated : 05/06/18 at 2:14 pm Service Date, if different from initiated Date: [] Patient: Branden Espinosa 57 y/o M admitted on 04/20/18 for Worsening Renal Failure. Chief Complaint: [] Interval history: Mr. Espinosa is a 57 year old Male with history of morbid obesity, bedbound, severe pulmonary hypertension, congestive heart failure, chronic kidney disease atrial fibrillation. The patient presents to the hospital for worsening shortness of breath and increased edema in his body. The patient was discharged from this facility I believe on 20 March. He was transferred to [facility] for placement of a pacemaker. His admission in March was also for increased swelling, worsening renal function and was treated as congestive heart failure. At that point in time the patient was supratherapeutic and his INR as well as supratherapeutic and his digoxin level. Digoxin was held. The patient eventually was transferred to a higher center for placement of a pacemaker because of significant cardiac pauses. He underwent the pacemaker placement and was discharged from the facility. According to the patient since his discharge from the tertiary facility the patient has been having increased swelling in his lower extremities. This has been progressively getting worse, this has been accompanied by shortness of breath. He denies any other acute complaints or concerns. He denies taking in too much fluid he is watching his salt intake and is not taking any NSAIDs. The patient denies any chest pain denies any dizziness he does have intermittent changes in vision. The patient was being followed by nephrology in the outpatient, his dose of diuretics were being changed however despite this the patient's edema kept getting worse and therefore the patient was asked to come to the emergency room for evaluation. In the ER the patient was noted to have worsening renal failure, elevated bnp, significant edema, cxr was clear, showed resolving pna, ekg showed poor voltate , afib, 04/21 Patient seen and examined, overnight was not able to sleep well, there was some malfunction in the bariatric bed which kept beeping. Patient tired this morning. He has extensive erythema on his back possible fungal rash. Patient has not had a bowel movement for the last few days wanting a stool softener. He notes his shortness of breath is somewhat better but still not able to lie flat, denies any chest pain nausea vomiting. Appreciate nephrology input. Patient remains on IV Lasix, negative balance since yesterday,-1550 04/22 Pt seen examined, tired today, did not sleep well, bp on the lower end of normal , neg 1500 yesterday Pt has no other complaints. had bm this after noon. nephrology following. labs stable. 04/23 Pt seen examined, slept well last night, denies any acute complaints, noted some chest discomfort yesterday, no chest tightness or pressure, just a flicker, Pt is already anticoagulated with coumadin and INR is therapeutic The patient Creat is trending down, creat is 2.2, He is diuresing well, Neg 5L since admission Plan to use chlorothiazide this afternoon, and then followed by lasix to see if we can improve diuresis 04/24 Pt seen examined, no acute overnight events, [place] [id number] since admission, still has significant edema Start on metolozone 5mg daily, continue IV lasix 80 bid add acetazolamide one dose today for worsening metabolic alkalosis. BP stable HR stable Dig level 1.2-1.3, pt has pacemaker, intermittently pacing on tele inr therapeutic PT feels cpap is not giving enough pressure, even at 14mmhg, have spoken with RT to look into the device. 04/24 [place] [id number] since admission, pt feels ok, still has significant dependent edema, I feel we can switch him to oral meds and see if he continues to diurese on same d/c iv lasix, start on po bumex, and metolozone 5mg before bumex and monitor urine output The patient bed was not zeroed in, and therefore the daily weights are not accurate, I am not using daily weight to monitor treatment at this time. 04/26-patient doing well. No overnight events. Over 1600 cc net negative in 24 hours. Lower dose of metolazone. Continue Diamox due to contraction alkalosis. Patient undergoing strengthening exercises. Case management arranging SNF transfer. No fever chills shortness of breath. 04/27 -patient doing well. No overnight events. No concerns per staff. No fever chills or shortness of breath. Diuresing well. Additional 2700 cc negative. Bicarbonate at 42 with contraction alkalosis on Diamox. Creatinine 1.8. Ongoing physical therapy. Nephrology on board. 04/28-patient doing better. Ongoing diuresis. No dyspnea/chest pain. Ongoing physical therapy. Continues to be bedridden due to morbid obesity. Anticipate SNF transfer. Case management and coordinating. Creatinine 1.9. Bicarbonate 44 on twice-daily Diamox. April 29-patient doing well. No overnight events. Awaiting SNF transfer. Additional 2000 cc net negative. Bicarbonate 45. On Diamox for contraction alkalosis. Creatinine 1.7. Ongoing physical therapy. No concerns per staff 04/30-patient doing well. No overnight events. Diuresis additional 2400 cc. On combination diuretics. Electrolytes stable. Ongoing physical therapy. Case management coordinating discharge planning. Likely likely stay inpatient through the weekend until placement 05/01-patient doing well. No overnight events. No concerns per staff. No fever chills diuresing well. Only 6/metolazone/acetazolamide. Proteinuria currently being managed by nephrology. Electrophoresis/free light chains ordered per nephrology. Case management arranging SNF transfer. Anticipate additional 48 hours until placement can be arranged. 05/02-patient resting comfortably. No overnight events. Additional 2000 cc net negative fluid status. Creatinine around 2. Persistent alkalosis with bicarbonate 43. On twice a day Diamox. Still awaiting SNF placement. Significant excoriation bilateral dependent sacral gluteal area, on frequent turning/repositioning to avoid decubiti. Ongoing physical therapy 05/03 Pt seen examined, no acute overnight issues, tolerating po diet well, neg 28L since admission, pt labs are stable, on IV acetazolamide, bumex and metolozone. Will d/c the IV acetazolamide and see how his bicarb trends No safe discharge plan yet. Working with case management for discharge planning. 05/04 pt seen examined, no acute issue tolerating po well neg 2L since yesterday bicarb stable off acetazolamide awating xfer, cret 1.7, improved from before. 05/05 Pt seen examined no acute overnight events, he is neg 4 L yesterday, total of neg 34L since admission no new complaints he did get out of bed to chair today with the help of 3 people, not strong enough to do by self, some knee pain after the transfer awaiting social work case manager to find place for the patient. 05/06 Pt seen examined, no acute issues INR 1.7 pt has no new complaints or concerns bicart is 41 vbg shows ph 7.41 continue present treatment plan for d/c to snf on wednesday, it seems the rehab and pts insurance has worked out an payment arrangement Pt needs bariatric bed aggresive pt, twice daily, ot twice daily to get him back on his feet Pertinent ROS: Denies headache, dizziness Denies chest pain, palpitations Denies cough or shortness of breath Denies abdominal pain, nausea or vomiting. - Constitutional Vitals: Vital Signs Temp Pulse Resp BP Pulse Ox 98.6 F 82 20 115/74 98 05/06/18 11:27 05/06/18 03:30 05/06/18 11:27 05/06/18 11:27 05/06/18 11:27 Period Temp Pulse Resp BP Sys/Andujar Pulse Ox Last 24 Hr 97.9 F-98.9 F 76-96 12-20 104-120/62-78 90-98 Intake and Output 05/06/18 05/06/18 05/06/18 05:59 13:59 21:59 Intake Total 360 / 360 Output Total 775 / 775 1325 / 1325 Balance -415 / -415 -1325 / -1325 Weight 470 lb Patient Weight 05/07/18 05:59 Weight 470 lb Intake & Output: Intake & Output 05/06/18 05/06/18 05/06/18 05:59 13:59 21:59 Intake Total 360 / 360 Output Total 775 / 775 1325 / 1325 Balance -415 / -415 -1325 / -1325 Weight 470 lb Intake: Oral 360 / 360 Output: Void Amount 775 / 775 1325 / 1325 Other: # Voids 2 1 Exam: Constitutional; Afebrile, cooperative, alert, not in distress. Eyes- No icterus, , No periorbital swelling Ears- Ext ear normal, hearing normal to conversation. Neck- Midline trachea, supple Respiratory system: Air Entry equal on both sides, No crackles or wheezing, no rhonchi. CVS- Rate rhythm irregular, S1,S2 heard, no gallop, no rub. CODING QUALITY COORDINATOR- AOOx3, moving all extremities, no gross focal deficit noted. edema improving. Medical - PN: Obj Da - Labs CBC & Chem 7: 05/02/18 04:15 05/06/18 04:00 Labs: Abnormal Lab Results 05/06/18 05/06/18 05/06/18 08:16 04:00 04:00 PT 19.9 H INR 1.7 H ABG Methemoglobin 0.3 L VBG pCO2 68.4 H* VBG pO2 57 H VBG HCO3 41.9 H* VBG Total CO2 44.0 H* VBG O2 Saturation 85.2 H VBG Base Excess 14.8 H Carboxyhemoglobin 3.9 H Total Hemoglobin 9.9 L Chloride 89 L Carbon Dioxide 42 H* BUN 47 H Creatinine 1.8 H Uric Acid 13.8 H Phosphorus 2.6 L Total Bilirubin 1.3 H Direct Bilirubin 0.5 H GGT 68 H Alkaline Phosphatase 126 H Globulin 5.0 H Albumin/Globulin Ratio 0.6 L 05/05/18 05/04/18 05/04/18 04:00 07:43 04:00 PT 21.3 H 23.5 H INR 1.8 H 2.1 H ABG Methemoglobin VBG pCO2 VBG pO2 VBG HCO3 VBG Total CO2 VBG O2 Saturation VBG Base Excess Carboxyhemoglobin Total Hemoglobin Chloride 89 L Carbon Dioxide 43 H* BUN 49 H Creatinine 1.7 H Uric Acid Phosphorus Total Bilirubin Direct Bilirubin GGT Alkaline Phosphatase Globulin Albumin/Globulin Ratio Meds: Medications Acetaminophen (Tylenol) 650 mg PO Q6HP PRN PRN Reason: PAIN/FEVER > 101 Hydrocodone Bitart/Acetaminophen (Tornado 10/325mg) 2 tab PO Q6HP PRN PRN Reason: Pain Last Admin: 05/06/18 08:18 Dose: 2 tab Bumetanide (Bumex) 2 mg PO BIDD [facility] Last Admin: 05/06/18 08:18 Dose: 2 mg Digoxin (Lanoxin) 125 mcg PO Q48H [facility] Last Admin: 05/05/18 13:43 Dose: 125 mcg Docusate Sodium (Colace) 100 mg PO BID [facility] Last Admin: 05/06/18 09:20 Dose: 100 mg Heparin Sodium (Porcine) (Heparin Flush) 2 ml IV Q12 [facility] Last Admin: 05/06/18 09:21 Dose: 2 ml Metolazone (Zaroxolyn) 2.5 mg PO DAILY@0730 [facility] Last Admin: 05/06/18 08:19 Dose: 2.5 mg Naloxone HCl (Narcan) 0.1 mg IV Q2MIN PRN PRN Reason: Opiate Reversal Ondansetron HCl (Zofran Odt) 4 mg SL Q4HP PRN PRN Reason: Nausea And Vomiting Last Admin: 04/30/18 17:12 Dose: 4 mg Polyethylene Glycol (Miralax) 17 gm PO DAILY PRN PRN Reason: Constipation Last Admin: 05/04/18 13:47 Dose: 17 gm Potassium Chloride (Kdur) 20 meq PO QAC [facility] Last Admin: 05/06/18 08:19 Dose: 20 meq Senna (Senokot) 1 tab PO BID [facility] Last Admin: 05/06/18 09:20 Dose: 1 tab Sodium Chloride (Saline Flush) 10 ml IV UD PRN PRN Reason: FLUSH Last Admin: 05/05/18 04:18 Dose: 10 ml Sodium Chloride (Saline Flush) 10 ml IV Q12 [facility] Last Admin: 05/06/18 10:04 Dose: 10 ml Vitamin D (Vitamin D3) 2,000 unit PO DAILY [facility] Last Admin: 05/06/18 09:20 Dose: 2,000 unit Warfarin Sodium (Coumadin Per Pharmacy) 1 order PO UD [facility] - ABG Interpretation ABG results: 05/06/18 08:16 ABG Methemoglobin 0.3 L VBG pH 7.41 VBG pCO2 68.4 H* VBG pO2 57 H VBG HCO3 41.9 H* VBG Total CO2 44.0 H* VBG O2 Saturation 85.2 H VBG Base Excess 14.8 H Medical - PN: A/P - Time Spent With Patient Total time spent is greater than 50% in coordination of care (as documented) at patient's floor/unit and/or counseling patient: - Narrative A/P Narrative: a/p Anasarca - resolving, much improved Acute cor pulmonale- still has some fluid in the dependent region but much improved. on Bumex 2mg bid, metolazone 2.5mg daily and potassium chloride 20mg daily Morbid obesity- aggressive intervention, pt unable to ambulate s tuck in bed, bid pt and ot to help get pt back to baseline. Obstructive sleep apnea- cpap at night Acute on Chronic renal failure- creat stable between 1.7-2.0 Atrial fibrillation, s/p pacemaker-rate controlled with d igoxin, off beta blockers, digoxin every other day Bed bound status- aggressive ot/pt Decubitus ulcer, h/o wound are following HTN- bp stable off anti hypertensives Metabolic alkalosis, combination of doug, co2 retention and diuresis, ph 7.41 on vbg today, off diamox,. DVT on Coumadin with therapeutic INR Full code . Medical - PN: Qual - VTE Deep Vein Thrombosis/Pulmonary Embolism Present on Admission: No
[2018-05-07] MEDS: 0.9 % SODIUM CHLORIDE 10 ML SYRINGE IV PRN ×2 (04:22→20:10)
--- NOTE | 2018-05-07 06:47 | Nephrology Progress Note ---
Subjective Patient information: Note initiated : 05/07/18 at 6:45 am Branden Espinosa is a [id number] male with chronic kidney disease stage 3, chronic anemia associated with chronic kidney disease, generalized edema, hypertension, morbid obesity, cor pulmonale, chronic atrial fibrillation on Coumadin (Echo on 12/03/17: LVEF 48%, mild global hypokinesis, right ventricle severely dilated, severe pulmonary hypertension), admitted on 04/20/18 for acute on chronic renal failure with fluid overload. Chief Complaint: Worsening leg edema Principal diagnosis: Acute on chronic renal failure with fluid overload Interval history: Discharge pending Pertinent ROS: Weakness Edema Objective - Vital Signs Vital signs: Vital Signs Temp Pulse Resp BP Pulse Ox 05/06/18 23:36 98.8 F 102 H 20 110/71 92 05/06/18 21:45 94 05/06/18 19:48 99 F 75 18 105/70 97 05/06/18 14:45 98.5 F 22 122/76 96 05/06/18 11:27 98.6 F 20 115/74 98 05/06/18 06:50 98.6 F 20 120/78 90 Intake and Output 05/06/18 05/07/18 05/07/18 21:59 05:59 13:59 Intake Total 460 / 460 100 / 100 Output Total 1475 / 1475 1000 / 1000 Balance -1015 / -1015 -900 / -900 Intake: Oral 460 / 460 100 / 100 Output: Void Amount 1475 / 1475 1000 / 1000 Other: Meal Dinner Percent of Meal Consumed 100% # Voids 1 Weight 384 lb 3.2 oz Intake & Output: Intake & Output 05/06/18 05/07/18 05/07/18 21:59 05:59 13:59 Intake Total 460 / 460 100 / 100 Output Total 1475 / 1475 1000 / 1000 Balance -1015 / -1015 -900 / -900 Weight 384 lb 3.2 oz Intake: Oral 460 / 460 100 / 100 Output: Void Amount 1475 / 1475 1000 / 1000 Other: Meal Dinner Percent of Meal Consumed 100% # Voids 1 - General Appearance General appearance: obese, fatigue EENT: mucous membranes dry Neck: supple Respiratory: clear Cardiology: edema, regular rate, regular rhythm Gastrointestinal: no tenderness Integumentary: hyperpigmentation, chronic venous stasis Neurologic: no focal deficit, alert and oriented x3 Musculoskeletal: no deformities Psychiatric: mood/affect appropriate, cooperative - Lab 05/02/18 04:15 05/06/18 04:00 Most recent lab results Calcium 9.8 mg/dl (8.6-10.4) 05/06/18 04:00 Phosphorus 2.6 mg/dL (2.7-4.5) L 05/06/18 04:00 Magnesium 2.0 mg/dL (1.6-2.5) 05/06/18 04:00 Assessment and Plan (1) Acute on chronic kidney failure Renal US on 12/31/17: Slightly echogenic renal parenchyma bilaterally which may be seen with chronic medical renal disease. Kidneys are otherwise anatomically normal. Progress: Urine output: Adequate eGFR ~40 at baseline Plan: OK to discharge. Nephrology will sign off. I will follow up in May as outpatient. Status: Acute Priority: Medium Qualifiers: Acute renal failure type: unspecified Chronic kidney disease stage: stage 3 (moderate) Qualified Code(s): N17.9 - Acute kidney failure, unspecified; N18.3 - Chronic kidney disease, stage 3 (moderate) (2) Secondary hyperparathyroidism of renal origin Work up: Labs on 02/23/18: Vitamin D Total (25-Hydroxy) 18 Labs on 04/22/18: iPTH 98.7 Plan: Cholecalciferol 2,000 unit daily Status: Chronic Priority: Medium (3) Persistent proteinuria Labs on 04/20/18: Urinalysis yellow, hazy, pH 5.0, SG 1.013, protein negative, occult blood negative, random protein/creatinine ratio 240 mg/g creatinine and random urine sodium 49. Labs on 12/31/17: Urinalysis yellow, hazy, pH 6.0, SG 1.012, protein negative, occult blood 0.03, no cellular casts, random protein/creatinine ratio 230 mg/g creatinine and random microalbumin/creatinine ratio 19 mg/g creatinine. New work up: UPEP showed monoclonal proteins SPEP was consistent with chronic inflammation Labs on 05/01/18: Serum free kappa light chains 322, serum free lambda light chains 135, serum free kappa/lambda light chain ratio 2.38, serum PATRIZIA TNP. Status: Chronic Priority: Medium (4) Other fluid overload Fluid overload associated with chronic cor pulmonale (Echo on 12/03/17: LVEF 48% , mild global hypokinesis, right ventricle severely dilated, severe pulmonary hypertension). Treatment: Bumex 2 mg PO BIDD, Metolazone 2.5 mg PO QAM and Potassium Chloride 20 mEq PO QAM. I recommended adequate treatment of obstructive sleep apnea. He stated he is not using his new CPAP because it turns of for air leak. He is still using the old one but does not think pressures are enough. I recommended calling the service for evaluation. Status: Chronic Priority: Medium (5) Anemia in stage 3 chronic kidney disease No iron deficiency No need for erythropoietin Status: Chronic Priority: Medium
[2018-05-07] MEDS: METOLAZONE 2.5 MG TABLET PO SCH (07:47)
[2018-05-07] MEDS: POTASSIUM CHLORIDE 20 MEQ TABLET PO SCH (07:47)
[2018-05-07] MEDS: HYDROcodone/APAP 10/325MG TABLET PO PRN (07:48)
[2018-05-07] MEDS: BUMETANIDE 1 MG TABLET PO SCH ×2 (09:57→15:50)
[2018-05-07] MEDS: DOCUSATE SODIUM 100 MG CAPSULE PO SCH ×2 (09:57→20:09)
[2018-05-07] MEDS: POLYETHYLENE GLYCOL 3350 17 GM PACKET PO PRN (10:14)
[2018-05-07] MEDS: SENNOSIDES 1 TABLET PO SCH ×2 (11:29→20:09)
[2018-05-07] MEDS: VITAMIN D3 1,000 UNIT TABLET PO SCH (11:30)
--- NOTE | 2018-05-07 13:08 | Internal Med Progress Note ---
Medical - PN: Subj Patient information: Note initiated : 05/07/18 at 1:06 pm Service Date, if different from initiated Date: [] Patient: Branden Espinosa 57 y/o M admitted on 04/20/18 for Worsening Renal Failure. Chief Complaint: [] Interval history: Mr. Espinosa is a 57 year old Male with history of morbid obesity, bedbound, severe pulmonary hypertension, congestive heart failure, chronic kidney disease atrial fibrillation. The patient presents to the hospital for worsening shortness of breath and increased edema in his body. The patient was discharged from this facility I believe on 20 March. He was transferred to [facility] for placement of a pacemaker. His admission in March was also for increased swelling, worsening renal function and was treated as congestive heart failure. At that point in time the patient was supratherapeutic and his INR as well as supratherapeutic and his digoxin level. Digoxin was held. The patient eventually was transferred to a higher center for placement of a pacemaker because of significant cardiac pauses. He underwent the pacemaker placement and was discharged from the facility. According to the patient since his discharge from the tertiary facility the patient has been having increased swelling in his lower extremities. This has been progressively getting worse, this has been accompanied by shortness of breath. He denies any other acute complaints or concerns. He denies taking in too much fluid he is watching his salt intake and is not taking any NSAIDs. The patient denies any chest pain denies any dizziness he does have intermittent changes in vision. The patient was being followed by nephrology in the outpatient, his dose of diuretics were being changed however despite this the patient's edema kept getting worse and therefore the patient was asked to come to the emergency room for evaluation. In the ER the patient was noted to have worsening renal failure, elevated bnp, significant edema, cxr was clear, showed resolving pna, ekg showed poor voltate , afib, 04/21 Patient seen and examined, overnight was not able to sleep well, there was some malfunction in the bariatric bed which kept beeping. Patient tired this morning. He has extensive erythema on his back possible fungal rash. Patient has not had a bowel movement for the last few days wanting a stool softener. He notes his shortness of breath is somewhat better but still not able to lie flat, denies any chest pain nausea vomiting. Appreciate nephrology input. Patient remains on IV Lasix, negative balance since yesterday,-1550 04/22 Pt seen examined, tired today, did not sleep well, bp on the lower end of normal , neg 1500 yesterday Pt has no other complaints. had bm this after noon. nephrology following. labs stable. 04/23 Pt seen examined, slept well last night, denies any acute complaints, noted some chest discomfort yesterday, no chest tightness or pressure, just a flicker, Pt is already anticoagulated with coumadin and INR is therapeutic The patient Creat is trending down, creat is 2.2, He is diuresing well, Neg 5L since admission Plan to use chlorothiazide this afternoon, and then followed by lasix to see if we can improve diuresis 04/24 Pt seen examined, no acute overnight events, [place] [id number] since admission, still has significant edema Start on metolozone 5mg daily, continue IV lasix 80 bid add acetazolamide one dose today for worsening metabolic alkalosis. BP stable HR stable Dig level 1.2-1.3, pt has pacemaker, intermittently pacing on tele inr therapeutic PT feels cpap is not giving enough pressure, even at 14mmhg, have spoken with RT to look into the device. 04/24 [place] [id number] since admission, pt feels ok, still has significant dependent edema, I feel we can switch him to oral meds and see if he continues to diurese on same d/c iv lasix, start on po bumex, and metolozone 5mg before bumex and monitor urine output The patient bed was not zeroed in, and therefore the daily weights are not accurate, I am not using daily weight to monitor treatment at this time. 04/26-patient doing well. No overnight events. Over 1600 cc net negative in 24 hours. Lower dose of metolazone. Continue Diamox due to contraction alkalosis. Patient undergoing strengthening exercises. Case management arranging SNF transfer. No fever chills shortness of breath. 04/27 -patient doing well. No overnight events. No concerns per staff. No fever chills or shortness of breath. Diuresing well. Additional 2700 cc negative. Bicarbonate at 42 with contraction alkalosis on Diamox. Creatinine 1.8. Ongoing physical therapy. Nephrology on board. 04/28-patient doing better. Ongoing diuresis. No dyspnea/chest pain. Ongoing physical therapy. Continues to be bedridden due to morbid obesity. Anticipate SNF transfer. Case management and coordinating. Creatinine 1.9. Bicarbonate 44 on twice-daily Diamox. April 29-patient doing well. No overnight events. Awaiting SNF transfer. Additional 2000 cc net negative. Bicarbonate 45. On Diamox for contraction alkalosis. Creatinine 1.7. Ongoing physical therapy. No concerns per staff 04/30-patient doing well. No overnight events. Diuresis additional 2400 cc. On combination diuretics. Electrolytes stable. Ongoing physical therapy. Case management coordinating discharge planning. Likely likely stay inpatient through the weekend until placement 05/01-patient doing well. No overnight events. No concerns per staff. No fever chills diuresing well. Only 6/metolazone/acetazolamide. Proteinuria currently being managed by nephrology. Electrophoresis/free light chains ordered per nephrology. Case management arranging SNF transfer. Anticipate additional 48 hours until placement can be arranged. 05/02-patient resting comfortably. No overnight events. Additional 2000 cc net negative fluid status. Creatinine around 2. Persistent alkalosis with bicarbonate 43. On twice a day Diamox. Still awaiting SNF placement. Significant excoriation bilateral dependent sacral gluteal area, on frequent turning/repositioning to avoid decubiti. Ongoing physical therapy 05/03 Pt seen examined, no acute overnight issues, tolerating po diet well, neg 28L since admission, pt labs are stable, on IV acetazolamide, bumex and metolozone. Will d/c the IV acetazolamide and see how his bicarb trends No safe discharge plan yet. Working with case management for discharge planning. 05/04 pt seen examined, no acute issue tolerating po well neg 2L since yesterday bicarb stable off acetazolamide awating xfer, cret 1.7, improved from before. 05/05 Pt seen examined no acute overnight events, he is neg 4 L yesterday, total of neg 34L since admission no new complaints he did get out of bed to chair today with the help of 3 people, not strong enough to do by self, some knee pain after the transfer awaiting social problems specialist to find place for the patient. 05/06 Pt seen examined, no acute issues INR 1.7 pt has no new complaints or concerns bicart is 41 vbg shows ph 7.41 continue present treatment plan for d/c to snf on wednesday, it seems the rehab and pts insurance has worked out an payment arrangement Pt needs bariatric bed aggresive pt, twice daily, ot twice daily to get him back on his feet 05/07 Pt seen examined, no acute overnight events, doing well neg 40L since admission awaiting placement on wednesday Pertinent ROS: Denies headache, dizziness Denies chest pain, palpitations Denies cough or shortness of breath Denies abdominal pain, nausea or vomiting. - Constitutional Vitals: Vital Signs Temp Pulse Resp BP Pulse Ox 98.4 F 102 H 18 111/77 97 05/07/18 12:00 05/07/18 12:00 05/07/18 12:00 05/07/18 12:00 05/07/18 12:00 Period Temp Pulse Resp BP Sys/Andujar Pulse Ox Last 24 Hr 98.4 F-99 F 57-102 14-22 95-122/58-78 92-97 Intake and Output 05/06/18 05/07/18 05/07/18 21:59 05:59 13:59 Intake Total 460 / 460 100 / 100 Output Total 1475 / 1475 1000 / 1000 1080 / 1080 Balance -1015 / -1015 -900 / -900 -1080 / -1080 Weight 384 lb 3.2 oz Intake & Output: Intake & Output 05/06/18 05/07/18 05/07/18 21:59 05:59 13:59 Intake Total 460 / 460 100 / 100 Output Total 1475 / 1475 1000 / 1000 1080 / 1080 Balance -1015 / -1015 -900 / -900 -1080 / -1080 Weight 384 lb 3.2 oz Intake: Oral 460 / 460 100 / 100 Output: Void Amount 1475 / 1475 1000 / 1000 1080 / 1080 Other: Meal Dinner Breakfast Percent of Meal Consumed 100% 75% Feeding Ability Independent # Voids 1 Exam: Constitutional; Afebrile, cooperative, alert, not in distress. Eyes- No icterus, , No periorbital swelling Ears- Ext ear normal, hearing normal to conversation. Neck- Midline trachea, supple Respiratory system: Air Entry equal on both sides, No crackles or wheezing, no rhonchi. CVS- Rate rhythm regular, S1,S2 heard, no gallop, no rub. Abdomen- Soft nontender abdomen, no organomegaly, no tenderness, no guarding or rigidity, [employer]- AOOx3, moving all extremities, no gross focal deficit noted. Medical - PN: Obj Da - Labs CBC & Chem 7: 05/02/18 04:15 05/06/18 04:00 Labs: Abnormal Lab Results 05/07/18 05/06/18 05/06/18 04:30 08:16 04:00 PT 20.0 H INR 1.7 H ABG Methemoglobin 0.3 L VBG pCO2 68.4 H* VBG pO2 57 H VBG HCO3 41.9 H* VBG Total CO2 44.0 H* VBG O2 Saturation 85.2 H VBG Base Excess 14.8 H Carboxyhemoglobin 3.9 H Total Hemoglobin 9.9 L Chloride 89 L Carbon Dioxide 42 H* BUN 47 H Creatinine 1.8 H Uric Acid 13.8 H Phosphorus 2.6 L Total Bilirubin 1.3 H Direct Bilirubin 0.5 H GGT 68 H Alkaline Phosphatase 126 H Globulin 5.0 H Albumin/Globulin Ratio 0.6 L 05/06/18 05/05/18 04:00 04:00 PT 19.9 H 21.3 H INR 1.7 H 1.8 H ABG Methemoglobin VBG pCO2 VBG pO2 VBG HCO3 VBG Total CO2 VBG O2 Saturation VBG Base Excess Carboxyhemoglobin Total Hemoglobin Chloride Carbon Dioxide BUN Creatinine Uric Acid Phosphorus Total Bilirubin Direct Bilirubin GGT Alkaline Phosphatase Globulin Albumin/Globulin Ratio Meds: Medications Acetaminophen (Tylenol) 650 mg PO Q6HP PRN PRN Reason: PAIN/FEVER > 101 Hydrocodone Bitart/Acetaminophen ([place] 10/325mg) 2 tab PO Q6HP PRN PRN Reason: Pain Last Admin: 05/07/18 07:48 Dose: 2 tab Bumetanide (Bumex) 2 mg PO BIDD [facility] Last Admin: 05/07/18 09:57 Dose: 2 mg Digoxin (Lanoxin) 125 mcg PO Q48H [facility] Last Admin: 05/05/18 13:43 Dose: 125 mcg Docusate Sodium (Colace) 100 mg PO BID [facility] Last Admin: 05/07/18 09:57 Dose: 100 mg Heparin Sodium (Porcine) (Heparin Flush) 2 ml IV Q12 [facility] Last Admin: 05/07/18 09:57 Dose: 2 ml Metolazone (Zaroxolyn) 2.5 mg PO DAILY@0730 [facility] Last Admin: 05/07/18 07:47 Dose: 2.5 mg Naloxone HCl (Narcan) 0.1 mg IV Q2MIN PRN PRN Reason: Opiate Reversal Ondansetron HCl (Zofran Odt) 4 mg SL Q4HP PRN PRN Reason: Nausea And Vomiting Last Admin: 04/30/18 17:12 Dose: 4 mg Polyethylene Glycol (Miralax) 17 gm PO DAILY PRN PRN Reason: Constipation Last Admin: 05/07/18 10:14 Dose: 17 gm Potassium Chloride (Kdur) 20 meq PO [facility] Last Admin: 05/07/18 07:47 Dose: 20 meq Senna (Senokot) 1 tab PO BID [facility] Last Admin: 05/07/18 11:29 Dose: 1 tab Sodium Chloride (Saline Flush) 10 ml IV UD PRN PRN Reason: FLUSH Last Admin: 05/07/18 04:22 Dose: 10 ml Sodium Chloride (Saline Flush) 10 ml IV Q12 [facility] Last Admin: 05/06/18 20:02 Dose: 10 ml Vitamin D (Vitamin D3) 2,000 unit PO DAILY [facility] Last Admin: 05/07/18 11:30 Dose: 2,000 unit Warfarin Sodium (Coumadin Per Pharmacy) 1 order PO UD [facility] Warfarin Sodium (Coumadin) 5 mg PO ONCE@1400 ONE Stop: 05/07/18 14:01 - ABG Interpretation ABG results: 05/06/18 08:16 ABG Methemoglobin 0.3 L VBG pH 7.41 VBG pCO2 68.4 H* VBG pO2 57 H VBG HCO3 41.9 H* VBG Total CO2 44.0 H* VBG O2 Saturation 85.2 H VBG Base Excess 14.8 H Medical - PN: A/P - Time Spent With Patient Total time spent is greater than 50% in coordination of care (as documented) at patient's floor/unit and/or counseling patient: - Narrative A/P Narrative: a/p Anasarca - resolving, much improved Acute cor pulmonale- continue on Bumex 2mg bid, metolazone 2.5mg daily and potassium chloride 20mg daily, recheck basic in AM, neg 40L now Morbid obesity- aggressive intervention, pt unable to ambulate s tuck in bed, bid pt and ot to help get pt back to baseline. Obstructive sleep apnea- cpap at night Acute on Chronic renal failure- creat stable between 1.7-2.0 Atrial fibrillation, s/p pacemaker-rate controlled with digoxin, off beta blockers, digoxin every other day Bed bound status- aggressive ot/pt Decubitus ulcer, h/o wound are following HTN- bp stable off anti hypertensives Metabolic alkalosis, combination of doug, co2 retention and diuresis, ph 7.41 on vbg today, off diamox,. DVT on Coumadin with therapeutic INR Full code . Medical - PN: Qual - VTE Deep Vein Thrombosis/Pulmonary Embolism Present on Admission: No
[2018-05-07] MEDS ORDERED: WARFARIN 5 MG TABLET PO ONE (14:00)
[2018-05-07] MEDS: 0.9 % SODIUM CHLORIDE 10 ML SYRINGE IV SCH ×2 (15:09→20:25)
[2018-05-07] MEDS: DIGOXIN 125 MCG TABLET PO SCH (15:50)
[2018-05-08] MEDS: 0.9 % SODIUM CHLORIDE 10 ML SYRINGE IV PRN (04:36)
[2018-05-08 06:07] LABS: Blood Urea Nitrogen 45 mg/dl (6-20)
[2018-05-08] MEDS: HYDROcodone/APAP 10/325MG TABLET PO PRN ×2 (07:55→13:42)
[2018-05-08] MEDS: METOLAZONE 2.5 MG TABLET PO SCH (07:55)
[2018-05-08] MEDS: SENNOSIDES 1 TABLET PO SCH ×2 (09:14→20:00)
[2018-05-08] MEDS: 0.9 % SODIUM CHLORIDE 10 ML SYRINGE IV SCH ×2 (09:15→20:01)
[2018-05-08] MEDS: DOCUSATE SODIUM 100 MG CAPSULE PO SCH ×2 (09:15→20:00)
[2018-05-08] MEDS: BUMETANIDE 1 MG TABLET PO SCH ×2 (09:15→16:06)
[2018-05-08] MEDS: VITAMIN D3 1,000 UNIT TABLET PO SCH (09:15)
[2018-05-08] MEDS: POTASSIUM CHLORIDE 20 MEQ TABLET PO SCH (09:15)
--- NOTE | 2018-05-08 12:31 | Internal Med Progress Note ---
Medical - PN: Subj Patient information: Note initiated : 05/08/18 at 12:29 pm Service Date, if different from initiated Date: [] Patient: Branden Espinosa 57 y/o M admitted on 04/20/18 for Worsening Renal Failure. Chief Complaint: [] Interval history: Mr. Espinosa is a 57 year old Male with history of morbid obesity, bedbound, severe pulmonary hypertension, congestive heart failure, chronic kidney disease atrial fibrillation. The patient presents to the hospital for worsening shortness of breath and increased edema in his body. The patient was discharged from this facility I believe on 20 March. He was transferred to [facility] for placement of a pacemaker. His admission in March was also for increased swelling, worsening renal function and was treated as congestive heart failure. At that point in time the patient was supratherapeutic and his INR as well as supratherapeutic and his digoxin level. Digoxin was held. The patient eventually was transferred to a higher center for placement of a pacemaker because of significant cardiac pauses. He underwent the pacemaker placement and was discharged from the facility. According to the patient since his discharge from the tertiary facility the patient has been having increased swelling in his lower extremities. This has been progressively getting worse, this has been accompanied by shortness of breath. He denies any other acute complaints or concerns. He denies taking in too much fluid he is watching his salt intake and is not taking any NSAIDs. The patient denies any chest pain denies any dizziness he does have intermittent changes in vision. The patient was being followed by nephrology in the outpatient, his dose of diuretics were being changed however despite this the patient's edema kept getting worse and therefore the patient was asked to come to the emergency room for evaluation. In the ER the patient was noted to have worsening renal failure, elevated bnp, significant edema, cxr was clear, showed resolving pna, ekg showed poor voltate , afib, 04/21 Patient seen and examined, overnight was not able to sleep well, there was some malfunction in the bariatric bed which kept beeping. Patient tired this morning. He has extensive erythema on his back possible fungal rash. Patient has not had a bowel movement for the last few days wanting a stool softener. He notes his shortness of breath is somewhat better but still not able to lie flat, denies any chest pain nausea vomiting. Appreciate nephrology input. Patient remains on IV Lasix, negative balance since yesterday,-[id number] 04/22 Pt seen examined, tired today, did not sleep well, bp on the lower end of normal , neg 1500 yesterday Pt has no other complaints. had bm this after noon. nephrology following. labs stable. 04/23 Pt seen examined, slept well last night, denies any acute complaints, noted some chest discomfort yesterday, no chest tightness or pressure, just a flicker, Pt is already anticoagulated with coumadin and INR is therapeutic The patient Creat is trending down, creat is 2.2, He is diuresing well, Neg 5L since admission Plan to use chlorothiazide this afternoon, and then followed by lasix to see if we can improve diuresis 04/24 Pt seen examined, no acute overnight events, [place] [id number] since admission, still has significant edema Start on metolozone 5mg daily, continue IV lasix 80 bid add acetazolamide one dose today for worsening metabolic alkalosis. BP stable HR stable Dig level 1.2-1.3, pt has pacemaker, intermittently pacing on tele inr therapeutic PT feels cpap is not giving enough pressure, even at 14mmhg, have spoken with RT to look into the device. 04/24 [place] [id number] since admission, pt feels ok, still has significant dependent edema, I feel we can switch him to oral meds and see if he continues to diurese on same d/c iv lasix, start on po bumex, and metolozone 5mg before bumex and monitor urine output The patient bed was not zeroed in, and therefore the daily weights are not accurate, I am not using daily weight to monitor treatment at this time. 04/26-patient doing well. No overnight events. Over 1600 cc net negative in 24 hours. Lower dose of metolazone. Continue Diamox due to contraction alkalosis. Patient undergoing strengthening exercises. Case management arranging SNF transfer. No fever chills shortness of breath. 04/27 -patient doing well. No overnight events. No concerns per staff. No fever chills or shortness of breath. Diuresing well. Additional 2700 cc negative. Bicarbonate at 42 with contraction alkalosis on Diamox. Creatinine 1.8. Ongoing physical therapy. Nephrology on board. 04/28-patient doing better. Ongoing diuresis. No dyspnea/chest pain. Ongoing physical therapy. Continues to be bedridden due to morbid obesity. Anticipate SNF transfer. Case management and coordinating. Creatinine 1.9. Bicarbonate 44 on twice-daily Diamox. April 29-patient doing well. No overnight events. Awaiting SNF transfer. Additional 2000 cc net negative. Bicarbonate 45. On Diamox for contraction alkalosis. Creatinine 1.7. Ongoing physical therapy. No concerns per staff 04/30-patient doing well. No overnight events. Diuresis additional 2400 cc. On combination diuretics. Electrolytes stable. Ongoing physical therapy. Case management coordinating discharge planning. Likely likely stay inpatient through the weekend until placement 05/01-patient doing well. No overnight events. No concerns per staff. No fever chills diuresing well. Only 6/metolazone/acetazolamide. Proteinuria currently being managed by nephrology. Electrophoresis/free light chains ordered per nephrology. Case management arranging SNF transfer. Anticipate additional 48 hours until placement can be arranged. 05/02-patient resting comfortably. No overnight events. Additional 2000 cc net negative fluid status. Creatinine around 2. Persistent alkalosis with bicarbonate 43. On twice a day Diamox. Still awaiting SNF placement. Significant excoriation bilateral dependent sacral gluteal area, on frequent turning/repositioning to avoid decubiti. Ongoing physical therapy 05/03 Pt seen examined, no acute overnight issues, tolerating po diet well, neg 28L since admission, pt labs are stable, on IV acetazolamide, bumex and metolozone. Will d/c the IV acetazolamide and see how his bicarb trends No safe discharge plan yet. Working with case management for discharge planning. 05/04 pt seen examined, no acute issue tolerating po well neg 2L since yesterday bicarb stable off acetazolamide awating xfer, cret 1.7, improved from before. 05/05 Pt seen examined no acute overnight events, he is neg 4 L yesterday, total of neg 34L since admission no new complaints he did get out of bed to chair today with the help of 3 people, not strong enough to do by self, some knee pain after the transfer awaiting social work associate to find place for the patient. 05/06 Pt seen examined, no acute issues INR 1.7 pt has no new complaints or concerns bicart is 41 vbg shows ph 7.41 continue present treatment plan for d/c to snf on wednesday, it seems the rehab and pts insurance has worked out an payment arrangement Pt needs bariatric bed aggresive pt, twice daily, ot twice daily to get him back on his feet 05/07 Pt seen examined, no acute overnight events, doing well neg 40L since admission awaiting placement on tuesday 05/08 Pt seen examined, in bed comfortable tolerating po well no acute complaints of issues diuresing well creat down to 1.5, bicarb 41 awaiting placement on wednesday Pertinent ROS: Denies headache, dizziness Denies chest pain, palpitations Denies cough or shortness of breath Denies abdominal pain, nausea or vomiting. - Constitutional Vitals: Vital Signs Temp Pulse Resp BP Pulse Ox 98.1 F 98 H 12 136/77 97 05/08/18 07:59 05/08/18 07:59 05/08/18 07:59 05/08/18 07:59 05/08/18 07:59 Period Temp Pulse Resp BP Sys/Andujar Pulse Ox Last 24 Hr 97.7 F-98.8 F 83-114 12-18 115-136/70-87 91-97 Intake and Output 05/07/18 05/08/18 05/08/18 21:59 05:59 13:59 Intake Total 840 / 840 360 / 360 450 / 450 Output Total 1720 / 1720 1075 / 1075 1050 / 1050 Balance -880 / -880 -715 / -715 -600 / -600 Weight 377 lb 3.2 oz Intake & Output: Intake & Output 05/07/18 05/08/18 05/08/18 21:59 05:59 13:59 Intake Total 840 / 840 360 / 360 450 / 450 Output Total 1720 / 1720 1075 / 1075 1050 / 1050 Balance -880 / -880 -715 / -715 -600 / -600 Weight 377 lb 3.2 oz Intake: Oral 840 / 840 360 / 360 450 / 450 Output: Void Amount 1720 / 1720 1075 / 1075 1050 / 1050 Other: Meal yoghurt and blanka crackers Breakfast Percent of Meal Consumed 100% 75% Feeding Ability Independent Stool Size Moderate Stool Color Brown Stool Consistency Loose # Bowel Movements 1 1 Exam: Constitutional; Afebrile, cooperative, alert, not in distress. Eyes- No icterus, , No periorbital swelling Ears- Ext ear normal, hearing normal to conversation. Neck- Midline trachea, supple Respiratory system: Air Entry equal on both sides, No crackles or wheezing, no rhonchi. CVS- Rate rhythm irregular, S1,S2 heard, no gallop, no rub. Abdomen- Soft nontender abdomen, no organomegaly, no tenderness, no guarding or rigidity, [employer]- AOOx3, moving all extremities, no gross focal deficit noted. Medical - PN: Obj Da - Labs CBC & Chem 7: 05/02/18 04:15 05/08/18 04:00 Labs: Abnormal Lab Results 05/08/18 05/08/18 05/07/18 04:00 04:00 04:30 PT 19.7 H 20.0 H INR 1.7 H 1.7 H ABG Methemoglobin VBG pCO2 VBG pO2 VBG HCO3 VBG Total CO2 VBG O2 Saturation VBG Base Excess Carboxyhemoglobin Total Hemoglobin Chloride 88 L Carbon Dioxide 41 H* BUN 45 H Creatinine 1.5 H Uric Acid Phosphorus Total Bilirubin Direct Bilirubin GGT Alkaline Phosphatase Globulin Albumin/Globulin Ratio 05/06/18 05/06/18 05/06/18 08:16 04:00 04:00 PT 19.9 H INR 1.7 H ABG Methemoglobin 0.3 L VBG pCO2 68.4 H* VBG pO2 57 H VBG HCO3 41.9 H* VBG Total CO2 44.0 H* VBG O2 Saturation 85.2 H VBG Base Excess 14.8 H Carboxyhemoglobin 3.9 H Total Hemoglobin 9.9 L Chloride 89 L Carbon Dioxide 42 H* BUN 47 H Creatinine 1.8 H Uric Acid 13.8 H Phosphorus 2.6 L Total Bilirubin 1.3 H Direct Bilirubin 0.5 H GGT 68 H Alkaline Phosphatase 126 H Globulin 5.0 H Albumin/Globulin Ratio 0.6 L Meds: Medications Acetaminophen (Tylenol) 650 mg PO Q6HP PRN PRN Reason: PAIN/FEVER > 101 Hydrocodone Bitart/Acetaminophen (Suches 10/325mg) 2 tab PO Q6HP PRN PRN Reason: Pain Last Admin: 05/08/18 07:55 Dose: 2 tab Bumetanide (Bumex) 2 mg PO BIDD [facility] Last Admin: 05/08/18 09:15 Dose: 2 mg Digoxin (Lanoxin) 125 mcg PO Q48H [facility] Last Admin: 05/07/18 15:50 Dose: 125 mcg Docusate Sodium (Colace) 100 mg PO BID [facility] Last Admin: 05/08/18 09:15 Dose: 100 mg Heparin Sodium (Porcine) (Heparin Flush) 2 ml IV Q12 [facility] Last Admin: 05/08/18 09:16 Dose: 2 ml Metolazone (Zaroxolyn) 2.5 mg PO DAILY@0730 [facility] Last Admin: 05/08/18 07:55 Dose: 2.5 mg Naloxone HCl (Narcan) 0.1 mg IV Q2MIN PRN PRN Reason: Opiate Reversal Ondansetron HCl (Zofran Odt) 4 mg SL Q4HP PRN PRN Reason: Nausea And Vomiting Last Admin: 04/30/18 17:12 Dose: 4 mg Polyethylene Glycol (Miralax) 17 gm PO DAILY PRN PRN Reason: Constipation Last Admin: 05/07/18 10:14 Dose: 17 gm Potassium Ch[facility] ([facility]ur) [facility] Last Admin: 05/08/18 09:15 Dose: 20 meq Senna (Senokot) 1 tab PO BID [facility] Last Admin: 05/08/18 09:14 Dose: 1 tab Sodium Chloride (Saline Flush) 10 ml IV UD PRN PRN Reason: FLUSH Last Admin: 05/08/18 04:36 Dose: 10 ml Sodium Chloride (Saline Flush) 10 ml IV Q12 [facility] Last Admin: 05/08/18 09:15 Dose: 10 ml Vitamin D (Vitamin D3) 2,000 unit PO DAILY [facility] Last Admin: 05/08/18 09:15 Dose: 2,000 unit Warfarin Sodium (Coumadin Per Pharmacy) 1 order PO UD [facility] - ABG Interpretation ABG results: 05/06/18 08:16 ABG Methemoglobin 0.3 L VBG pH 7.41 VBG pCO2 68.4 H* VBG pO2 57 H VBG HCO3 41.9 H* VBG Total CO2 44.0 H* VBG O2 Saturation 85.2 H VBG Base Excess 14.8 H Medical - PN: A/P - Time Spent With Patient Total time spent is greater than 50% in coordination of care (as documented) at patient's floor/unit and/or counseling patient: - Narrative A/P Narrative: a/p Anasarca - resolving, much improved, still has some depended edema which is improving. Acute cor pulmonale- continue on Bumex 2mg bid, metolazone 2.5mg daily and potassium chloride 20mg daily, neg [id number] since admission Morbid obesity- aggressive intervention, pt unable to ambulate s tuck in bed, bid pt and ot to help get pt back to baseline. Obstructive sleep apnea- cpap at night Acute on Chronic renal failure- creat stable between 1.7-2.0 , today is 1.5, bicarb 41 Atrial fibrillation, s/p pacemaker-rate controlled with digoxin, off beta blockers, digoxin every other day Bed bound status- aggressive ot/pt Decubitus ulcer, h/o wound are following HTN- bp stable off anti hypertensives Metabolic alkalosis, combination of doug, co2 retention and diuresis, ph 7.41 on vbg today, off diamox,. DVT on Coumadin with therapeutic INR Full code . Medical - PN: Qual - VTE Deep Vein Thrombosis/Pulmonary Embolism Present on Admission: No
[2018-05-08] MEDS ORDERED: WARFARIN 7.5 MG TABLET PO ONE ×2 (14:00)
[2018-05-09] MEDS: 0.9 % SODIUM CHLORIDE 10 ML SYRINGE IV PRN (04:33)
[2018-05-09] MEDS: METOLAZONE 2.5 MG TABLET PO SCH (08:42)
[2018-05-09] MEDS: POTASSIUM CHLORIDE 20 MEQ TABLET PO SCH (08:42)
[2018-05-09] MEDS: HYDROcodone/APAP 10/325MG TABLET PO PRN ×2 (09:04→14:23)
[2018-05-09] MEDS: VITAMIN D3 1,000 UNIT TABLET PO SCH (09:04)
[2018-05-09] MEDS: DOCUSATE SODIUM 100 MG CAPSULE PO SCH ×2 (09:05→20:11)
[2018-05-09] MEDS: BUMETANIDE 1 MG TABLET PO SCH ×2 (09:05→17:02)
[2018-05-09] MEDS: 0.9 % SODIUM CHLORIDE 10 ML SYRINGE IV SCH ×2 (09:05→20:09)
[2018-05-09] MEDS: SENNOSIDES 1 TABLET PO SCH ×2 (09:08→20:11)
[2018-05-09] MEDS: APIXABAN 2.5 MG TABLET PO SCH ×2 (11:08→20:11)
--- NOTE | 2018-05-09 13:45 | Internal Med Progress Note ---
Medical - PN: Subj Patient information: Note initiated : 05/09/18 at 1:43 pm Service Date, if different from initiated Date: [] Patient: Branden Espinosa 57 y/o M admitted on 04/20/18 for Worsening Renal Failure. Chief Complaint: [] Interval history: Mr. Espinosa is a 57 year old Male with history of morbid obesity, bedbound, severe pulmonary hypertension, congestive heart failure, chronic kidney disease atrial fibrillation. The patient presents to the hospital for worsening shortness of breath and increased edema in his body. The patient was discharged from this facility I believe on 20 March. He was transferred to [facility] for placement of a pacemaker. His admission in March was also for increased swelling, worsening renal function and was treated as congestive heart failure. At that point in time the patient was supratherapeutic and his INR as well as supratherapeutic and his digoxin level. Digoxin was held. The patient eventually was transferred to a higher center for placement of a pacemaker because of significant cardiac pauses. He underwent the pacemaker placement and was discharged from the facility. According to the patient since his discharge from the tertiary facility the patient has been having increased swelling in his lower extremities. This has been progressively getting worse, this has been accompanied by shortness of breath. He denies any other acute complaints or concerns. He denies taking in too much fluid he is watching his salt intake and is not taking any NSAIDs. The patient denies any chest pain denies any dizziness he does have intermittent changes in vision. The patient was being followed by nephrology in the outpatient, his dose of diuretics were being changed however despite this the patient's edema kept getting worse and therefore the patient was asked to come to the emergency room for evaluation. In the ER the patient was noted to have worsening renal failure, elevated bnp, significant edema, cxr was clear, showed resolving pna, ekg showed poor voltate , afib, 04/21 Patient seen and examined, overnight was not able to sleep well, there was some malfunction in the bariatric bed which kept beeping. Patient tired this morning. He has extensive erythema on his back possible fungal rash. Patient has not had a bowel movement for the last few days wanting a stool softener. He notes his shortness of breath is somewhat better but still not able to lie flat, denies any chest pain nausea vomiting. Appreciate nephrology input. Patient remains on IV Lasix, negative balance since yesterday,-1550 04/22 Pt seen examined, tired today, did not sleep well, bp on the lower end of normal , neg 1500 yesterday Pt has no other complaints. had bm this after noon. nephrology following. labs stable. 04/23 Pt seen examined, slept well last night, denies any acute complaints, noted some chest discomfort yesterday, no chest tightness or pressure, just a flicker, Pt is already anticoagulated with coumadin and INR is therapeutic The patient Creat is trending down, creat is 2.2, He is diuresing well, Neg 5L since admission Plan to use chlorothiazide this afternoon, and then followed by lasix to see if we can improve diuresis 04/24 Pt seen examined, no acute overnight events, [place] [id number] since admission, still has significant edema Start on metolozone 5mg daily, continue IV lasix 80 bid add acetazolamide one dose today for worsening metabolic alkalosis. BP stable HR stable Dig level 1.2-1.3, pt has pacemaker, intermittently pacing on tele inr therapeutic PT feels cpap is not giving enough pressure, even at 14mmhg, have spoken with RT to look into the device. 04/24 [place] [id number] since admission, pt feels ok, still has significant dependent edema, I feel we can switch him to oral meds and see if he continues to diurese on same d/c iv lasix, start on po bumex, and metolozone 5mg before bumex and monitor urine output The patient bed was not zeroed in, and therefore the daily weights are not accurate, I am not using daily weight to monitor treatment at this time. 04/26-patient doing well. No overnight events. Over 1600 cc net negative in 24 hours. Lower dose of metolazone. Continue Diamox due to contraction alkalosis. Patient undergoing strengthening exercises. Case management arranging SNF transfer. No fever chills shortness of breath. 04/27 -patient doing well. No overnight events. No concerns per staff. No fever chills or shortness of breath. Diuresing well. Additional 2700 cc negative. Bicarbonate at 42 with contraction alkalosis on Diamox. Creatinine 1.8. Ongoing physical therapy. Nephrology on board. 04/28-patient doing better. Ongoing diuresis. No dyspnea/chest pain. Ongoing physical therapy. Continues to be bedridden due to morbid obesity. Anticipate SNF transfer. Case management and coordinating. Creatinine 1.9. Bicarbonate 44 on twice-daily Diamox. April 29-patient doing well. No overnight events. Awaiting SNF transfer. Additional 2000 cc net negative. Bicarbonate 45. On Diamox for contraction alkalosis. Creatinine 1.7. Ongoing physical therapy. No concerns per staff 04/30-patient doing well. No overnight events. Diuresis additional 2400 cc. On combination diuretics. Electrolytes stable. Ongoing physical therapy. Case management coordinating discharge planning. Likely likely stay inpatient through the weekend until placement 05/01-patient doing well. No overnight events. No concerns per staff. No fever chills diuresing well. Only 6/metolazone/acetazolamide. Proteinuria currently being managed by nephrology. Electrophoresis/free light chains ordered per nephrology. Case management arranging SNF transfer. Anticipate additional 48 hours until placement can be arranged. 05/02-patient resting comfortably. No overnight events. Additional 2000 cc net negative fluid status. Creatinine around 2. Persistent alkalosis with bicarbonate 43. On twice a day Diamox. Still awaiting SNF placement. Significant excoriation bilateral dependent sacral gluteal area, on frequent turning/repositioning to avoid decubiti. Ongoing physical therapy 05/03 Pt seen examined, no acute overnight issues, tolerating po diet well, neg 28L since admission, pt labs are stable, on IV acetazolamide, bumex and metolozone. Will d/c the IV acetazolamide and see how his bicarb trends No safe discharge plan yet. Working with case management for discharge planning. 05/04 pt seen examined, no acute issue tolerating po well neg 2L since yesterday bicarb stable off acetazolamide awating xfer, cret 1.7, improved from before. 05/05 Pt seen examined no acute overnight events, he is neg 4 L yesterday, total of neg 34L since admission no new complaints he did get out of bed to chair today with the help of 3 people, not strong enough to do by self, some knee pain after the transfer awaiting director social service to find place for the patient. 05/06 Pt seen examined, no acute issues INR 1.7 pt has no new complaints or concerns bicart is 41 vbg shows ph 7.41 continue present treatment plan for d/c to snf on wednesday, it seems the rehab and pts insurance has worked out an payment arrangement Pt needs bariatric bed aggresive pt, twice daily, ot twice daily to get him back on his feet 05/07 Pt seen examined, no acute overnight events, doing well neg 40L since admission awaiting placement on tuesday 05/08 Pt seen examined, in bed comfortable tolerating po well no acute complaints of issues diuresing well creat down to 1.5, bicarb 41 awaiting placement on wednesday 05/09 still awaiting clearnce from insurance company no changes from yesterday pt continuing to diurese well Case management informed pt should be coveredf or eliquis inr sub therapeutic d/c coumadin and start on eliquis. Pertinent ROS: Denies headache, dizziness Denies chest pain, palpitations Denies cough or shortness of breath Denies abdominal pain, nausea or vomiting. - Constitutional Vitals: Vital Signs Temp Pulse Resp BP Pulse Ox 97.7 F 87 20 100/68 95 05/09/18 11:02 05/09/18 04:00 05/09/18 11:02 05/09/18 11:02 05/09/18 11:02 Period Temp Pulse Resp BP Sys/Andujar Pulse Ox Last 24 Hr 97.6 F-98.4 F 85-100 12-20 100-119/64-75 93-97 Intake and Output 05/08/18 05/09/18 05/09/18 21:59 05:59 13:59 Intake Total 100 / 100 Output Total 1625 / 1625 1050 / 1050 850 / 850 Balance -1525 / -1525 -1050 / -1050 -850 / -850 Weight 367 lb 6.4 oz Intake & Output: Intake & Output 05/08/18 05/09/18 05/09/18 21:59 05:59 13:59 Intake Total 100 / 100 Output Total 1625 / 1625 1050 / 1050 850 / 850 Balance -1525 / -1525 -1050 / -1050 -850 / -850 Weight 367 lb 6.4 oz Intake: Oral 100 / 100 Output: Void Amount 1625 / 1625 1050 / 1050 850 / 850 Other: Meal Dinner Lunch Percent of Meal Consumed 75% 50% Stool Size Moderate Stool Color Brown Stool Consistency Loose # Bowel Movements 1 Exam: Constitutional; Afebrile, cooperative, alert, not in distress. Respiratory system: Air Entry equal on both sides, No crackles or wheezing, no rhonchi. CVS- Rate rhythm irregular, S1,S2 heard, no gallop, no rub. Abdomen- Soft nontender abdomen, no organomegaly, no tenderness, no guarding or rigidity, large pannus. [employer]- AOOx[employer], moving all extremities, no gross focal deficit noted. Medical - PN: Obj Da - Labs CBC & Chem 7: 05/02/18 04:15 05/08/18 04:00 Labs: Abnormal Lab Results 05/09/18 05/08/18 05/08/18 04:30 04:00 04:00 PT 20.4 H 19.7 H INR 1.7 H 1.7 H Chloride 88 L Carbon Dioxide 41 H* BUN 45 H Creatinine 1.5 H 05/07/18 04:30 PT 20.0 H INR 1.7 H Chloride Carbon Dioxide BUN Creatinine Meds: Medications Acetaminophen (Tylenol) 650 mg PO Q6HP PRN PRN Reason: PAIN/FEVER > 101 Hydrocodone Bitart/Acetaminophen ([place] 10/325mg) 2 tab PO Q6HP PRN PRN Reason: Pain Last Admin: 05/09/18 09:04 Dose: 2 tab Bumetanide (Bumex) 2 mg PO BIDD [facility] Last Admin: 05/09/18 09:05 Dose: 2 mg Digoxin (Lanoxin) 125 mcg PO Q48H [facility] Last Admin: 05/07/18 15:50 Dose: 125 mcg Docusate Sodium (Colace) 100 mg PO BID [facility] Last Admin: 05/09/18 09:05 Dose: 100 mg Heparin Sodium (Porcine) (Heparin Flush) 2 ml IV Q12 [facility] Last Admin: 05/09/18 09:05 Dose: 2 ml Metolazone (Zaroxolyn) 2.5 mg PO DAILY@0730 [facility] Last Admin: 05/09/18 08:42 Dose: 2.5 mg Naloxone HCl (Narcan) 0.1 mg IV Q2MIN PRN PRN Reason: Opiate Reversal Ondansetron HCl (Zofran Odt) 4 mg SL Q4HP PRN PRN Reason: Nausea And Vomiting Last Admin: 04/30/18 17:12 Dose: 4 mg Polyethylene Glycol (Miralax) 17 gm PO DAILY PRN PRN Reason: Constipation Last Admin: 05/07/18 10:14 Dose: 17 gm Potassium Chloride (Kdur) 20 meq PO QAC [facility] Last Admin: 05/09/18 08:42 Dose: 20 meq Senna (Senokot) 1 tab PO BID [facility] Last Admin: 05/09/18 09:08 Dose: Not Given Sodium Chloride (Saline Flush) 10 ml IV UD PRN PRN Reason: FLUSH Last Admin: 05/09/18 04:33 Dose: 10 ml Sodium Chloride (Saline Flush) 10 ml IV Q12 [facility] Last Admin: 05/09/18 09:05 Dose: 10 ml Vitamin D (Vitamin D3) 2,000 unit PO DAILY [facility] Last Admin: 05/09/18 09:04 Dose: 2,000 unit - ABG Interpretation ABG results: 05/06/18 08:16 ABG Methemoglobin 0.3 L VBG pH 7.41 VBG pCO2 68.4 H* VBG pO2 57 H VBG HCO3 41.9 H* VBG Total CO2 44.0 H* VBG O2 Saturation 85.2 H VBG Base Excess 14.8 H Medical - PN: A/P - Time Spent With Patient Total time spent is greater than 50% in coordination of care (as documented) at patient's floor/unit and/or counseling patient: - Narrative A/P Narrative: a/p Anasarca - resolving, much improved, still has some depended edema which is improving. Acute cor pulmonale- continue on Bumex 2mg bid, metolazone 2.5mg daily and potassium chloride 20mg daily, neg 45L since admission Morbid obesity- aggressive intervention, pt unable to ambulate s tuck in bed, bid pt and ot to help get pt back to baseline. Obstructive sleep apnea- cpap at night Acute on Chronic renal failure- creat stable, last creat 1.5, bicarb 41 Atrial fibrillation, s/p pacemaker-rate controlled with digoxin, off beta blockers, digoxin every other day Bed bound status- aggressive ot/pt Decubitus ulcer, h/o wound are following HTN- bp stable off anti hypertensives Metabolic alkalosis, combination of doug, co2 retention and diuresis, ph 7.41 on vbg today, off diamox,. DVT on Coumadin with therapeutic INR Full code Awaiting placement, . Medical - PN: Qual - VTE Deep Vein Thrombosis/Pulmonary Embolism Present on Admission: No
[2018-05-09] MEDS: DIGOXIN 125 MCG TABLET PO SCH (14:23)
[2018-05-10] MEDS: 0.9 % SODIUM CHLORIDE 10 ML SYRINGE IV SCH ×2 (07:30→20:27)
[2018-05-10] MEDS: HYDROcodone/APAP 10/325MG TABLET PO PRN ×2 (08:23→14:27)
[2018-05-10] MEDS: DOCUSATE SODIUM 100 MG CAPSULE PO SCH ×2 (08:26→20:27)
[2018-05-10] MEDS: METOLAZONE 2.5 MG TABLET PO SCH (08:26)
[2018-05-10] MEDS: POTASSIUM CHLORIDE 20 MEQ TABLET PO SCH (08:26)
[2018-05-10] MEDS: SENNOSIDES 1 TABLET PO SCH ×2 (08:27→20:27)
[2018-05-10] MEDS: VITAMIN D3 1,000 UNIT TABLET PO SCH (08:28)
[2018-05-10] MEDS: APIXABAN 2.5 MG TABLET PO SCH ×2 (08:30→20:27)
[2018-05-10 08:31] LABS: ALT/SGPT 8 U/l (0-40); Albumin 3.2 gm/dL (3.2-5.2); Albumin/Globulin Ratio 0.6 (1.0-2.3); Alkaline Phosphatase 122 U/L (39-117); Bilirubin,Direct 0.6 mg/dL (0.0-0.3); Blood Urea Nitrogen 48 mg/dl (6-20); Gamma Glutamyl Transpeptidase 73 U/L (8-61); Uric Acid 13.8 mg/dL (2.5-8.0)
[2018-05-10] MEDS: BUMETANIDE 1 MG TABLET PO SCH ×2 (09:02→15:27)
--- NOTE | 2018-05-10 09:36 | Internal Med Progress Note ---
Medical - PN: Subj Patient information: Note initiated : 05/10/18 at 9:34 am Service Date, if different from initiated Date: [] Patient: Branden Espinosa 57 y/o M admitted on 04/20/18 for Worsening Renal Failure. Chief Complaint: [] Interval history: Mr. Espinosa is a 57 year old Male with history of morbid obesity, bedbound, severe pulmonary hypertension, congestive heart failure, chronic kidney disease atrial fibrillation. The patient presents to the hospital for worsening shortness of breath and increased edema in his body. The patient was discharged from this facility I believe on 20 March. He was transferred to [facility] for placement of a pacemaker. His admission in March was also for increased swelling, worsening renal function and was treated as congestive heart failure. At that point in time the patient was supratherapeutic and his INR as well as supratherapeutic and his digoxin level. Digoxin was held. The patient eventually was transferred to a higher center for placement of a pacemaker because of significant cardiac pauses. He underwent the pacemaker placement and was discharged from the facility. According to the patient since his discharge from the tertiary facility the patient has been having increased swelling in his lower extremities. This has been progressively getting worse, this has been accompanied by shortness of breath. He denies any other acute complaints or concerns. He denies taking in too much fluid he is watching his salt intake and is not taking any NSAIDs. The patient denies any chest pain denies any dizziness he does have intermittent changes in vision. The patient was being followed by nephrology in the outpatient, his dose of diuretics were being changed however despite this the patient's edema kept getting worse and therefore the patient was asked to come to the emergency room for evaluation. In the ER the patient was noted to have worsening renal failure, elevated bnp, significant edema, cxr was clear, showed resolving pna, ekg showed poor voltate , afib, 04/21 Patient seen and examined, overnight was not able to sleep well, there was some malfunction in the bariatric bed which kept beeping. Patient tired this morning. He has extensive erythema on his back possible fungal rash. Patient has not had a bowel movement for the last few days wanting a stool softener. He notes his shortness of breath is somewhat better but still not able to lie flat, denies any chest pain nausea vomiting. Appreciate nephrology input. Patient remains on IV Lasix, negative balance since yesterday,-1550 04/22 Pt seen examined, tired today, did not sleep well, bp on the lower end of normal , neg 1500 yesterday Pt has no other complaints. had bm this after noon. nephrology following. labs stable. 04/23 Pt seen examined, slept well last night, denies any acute complaints, noted some chest discomfort yesterday, no chest tightness or pressure, just a flicker, Pt is already anticoagulated with coumadin and INR is therapeutic The patient Creat is trending down, creat is 2.2, He is diuresing well, Neg 5L since admission Plan to use chlorothiazide this afternoon, and then followed by lasix to see if we can improve diuresis 04/24 Pt seen examined, no acute overnight events, [place] [id number] since admission, still has significant edema Start on metolozone 5mg daily, continue IV lasix 80 bid add acetazolamide one dose today for worsening metabolic alkalosis. BP stable HR stable Dig level 1.2-1.3, pt has pacemaker, intermittently pacing on tele inr therapeutic PT feels cpap is not giving enough pressure, even at 14mmhg, have spoken with RT to look into the device. 04/24 [place] [id number] since admission, pt feels ok, still has significant dependent edema, I feel we can switch him to oral meds and see if he continues to diurese on same d/c iv lasix, start on po bumex, and metolozone 5mg before bumex and monitor urine output The patient bed was not zeroed in, and therefore the daily weights are not accurate, I am not using daily weight to monitor treatment at this time. 04/26-patient doing well. No overnight events. Over 1600 cc net negative in 24 hours. Lower dose of metolazone. Continue Diamox due to contraction alkalosis. Patient undergoing strengthening exercises. Case management arranging SNF transfer. No fever chills shortness of breath. 04/27 -patient doing well. No overnight events. No concerns per staff. No fever chills or shortness of breath. Diuresing well. Additional 2700 cc negative. Bicarbonate at 42 with contraction alkalosis on Diamox. Creatinine 1.8. Ongoing physical therapy. Nephrology on board. 04/28-patient doing better. Ongoing diuresis. No dyspnea/chest pain. Ongoing physical therapy. Continues to be bedridden due to morbid obesity. Anticipate SNF transfer. Case management and coordinating. Creatinine 1.9. Bicarbonate 44 on twice-daily Diamox. April 29-patient doing well. No overnight events. Awaiting SNF transfer. Additional 2000 cc net negative. Bicarbonate 45. On Diamox for contraction alkalosis. Creatinine 1.7. Ongoing physical therapy. No concerns per staff 04/30-patient doing well. No overnight events. Diuresis additional 2400 cc. On combination diuretics. Electrolytes stable. Ongoing physical therapy. Case management coordinating discharge planning. Likely likely stay inpatient through the weekend until placement 05/01-patient doing well. No overnight events. No concerns per staff. No fever chills diuresing well. Only 6/metolazone/acetazolamide. Proteinuria currently being managed by nephrology. Electrophoresis/free light chains ordered per nephrology. Case management arranging SNF transfer. Anticipate additional 48 hours until placement can be arranged. 05/02-patient resting comfortably. No overnight events. Additional 2000 cc net negative fluid status. Creatinine around 2. Persistent alkalosis with bicarbonate 43. On twice a day Diamox. Still awaiting SNF placement. Significant excoriation bilateral dependent sacral gluteal area, on frequent turning/repositioning to avoid decubiti. Ongoing physical therapy 05/03 Pt seen examined, no acute overnight issues, tolerating po diet well, neg 28L since admission, pt labs are stable, on IV acetazolamide, bumex and metolozone. Will d/c the IV acetazolamide and see how his bicarb trends No safe discharge plan yet. Working with case management for discharge planning. 05/04 pt seen examined, no acute issue tolerating po well neg 2L since yesterday bicarb stable off acetazolamide awating xfer, cret 1.7, improved from before. 05/05 Pt seen examined no acute overnight events, he is neg 4 L yesterday, total of neg 34L since admission no new complaints he did get out of bed to chair today with the help of 3 people, not strong enough to do by self, some knee pain after the transfer awaiting social service liaison to find place for the patient. 05/06 Pt seen examined, no acute issues INR 1.7 pt has no new complaints or concerns bicart is 41 vbg shows ph 7.41 continue present treatment plan for d/c to snf on wednesday, it seems the rehab and pts insurance has worked out an payment arrangement Pt needs bariatric bed aggresive pt, twice daily, ot twice daily to get him back on his feet 05/07 Pt seen examined, no acute overnight events, doing well neg 40L since admission awaiting placement on tuesday 05/08 Pt seen examined, in bed comfortable tolerating po well no acute complaints of issues diuresing well creat down to 1.5, bicarb 41 awaiting placement on wednesday 05/09 still awaiting clearnce from insurance company no changes from yesterday pt continuing to diurese well Case management informed pt should be coveredf or eliquis inr sub therapeutic d/c coumadin and start on eliquis. 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 It seems the deal with insurance company and SNF fell through and the patient still is waiting for placement. Pertinent ROS: Denies headache, dizziness Denies chest pain, palpitations Denies cough or shortness of breath Denies abdominal pain, nausea or vomiting. - Constitutional Vitals: Vital Signs Temp Pulse Resp BP Pulse Ox 99 F 88 20 108/67 92 05/10/18 08:00 05/10/18 08:00 05/10/18 08:00 05/10/18 08:00 05/10/18 08:00 Period Temp Pulse Resp BP Sys/Andujar Pulse Ox Last 24 Hr 97.4 F-99 F 88-109 12-20 99-116/67-74 92-98 Intake and Output 05/09/18 05/10/18 05/10/18 21:59 05:59 13:59 Intake Total 800 / 800 300 / 300 Output Total 1895 / 1895 1025 / 1025 Balance -1095 / -1095 -725 / -725 Weight 363 lb 9.6 oz Intake & Output: Intake & Output 05/09/18 05/10/18 05/10/18 21:59 05:59 13:59 Intake Total 800 / 800 300 / 300 Output Total 1895 / 1895 1025 / 1025 Balance -1095 / -1095 -725 / -725 Weight 363 lb 9.6 oz Intake: Oral 800 / 800 300 / 300 Output: Void Amount 1894 1025 / 1025 Other: Meal 2x peanutbutter & 2x pk grahm crackers Percent of Meal Consumed 100% Feeding Ability Independent # Voids 2 Exam: Constitutional; Afebrile, cooperative, alert, not in distress. Eyes- No icterus, , No periorbital swelling Ears- Ext ear normal, hearing normal to conversation. Neck- Midline trachea, supple Respiratory system: Air Entry equal on both sides, No crackles or wheezing, no rhonchi. CVS- Rate rhythm irregular, S1,S2 heard, no gallop, no rub. BENDER MACHINE OPERATOR- AOOx3, moving all extremities, no gross focal deficit noted. Medical - PN: Obj Da - Labs CBC & Chem 7: 05/02/18 04:15 05/10/18 07:10 Labs: Abnormal Lab Results 05/10/18 05/09/18 05/08/18 07:10 04:30 04:00 PT 20.4 H INR 1.7 H Chloride 89 L 88 L Carbon Dioxide 37 H 41 H* BUN 48 H 45 H Creatinine 1.8 H 1.5 H Uric Acid 13.8 H Total Bilirubin 1.3 H Direct Bilirubin 0.6 H GGT 73 H Alkaline Phosphatase 122 H Globulin 5.2 H Albumin/Globulin Ratio 0.6 L 05/08/18 04:00 PT 19.7 H INR 1.7 H Chloride Carbon Dioxide BUN Creatinine Uric Acid Total Bilirubin Direct Bilirubin GGT Alkaline Phosphatase Globulin Albumin/Globulin Ratio Meds: Medications Acetaminophen (Tylenol) 650 mg PO Q6HP PRN PRN Reason: PAIN/FEVER > 101 Hydrocodone Bitart/Acetaminophen ([place] 10/325mg) 2 tab PO Q6HP PRN PRN Reason: Pain Last Admin: 05/10/18 08:23 Dose: 2 tab Bumetanide (Bumex) 2 mg PO BIDD [facility] Last Admin: 05/10/18 09:02 Dose: 2 mg Digoxin (Lanoxin) 125 mcg PO Q48H [facility] Last Admin: 05/09/18 14:23 Dose: 125 mcg Docusate Sodium (Colace) 100 mg PO BID [facility] Last Admin: 05/10/18 08:26 Dose: 100 mg Heparin Sodium (Porcine) (Heparin Flush) 2 ml IV Q12 [facility] Last Admin: 05/09/18 20:10 Dose: 2 ml Metolazone (Zaroxolyn) 2.5 mg PO DAILY@0730 [facility] Last Admin: 05/10/18 08:26 Dose: 2.5 mg Naloxone HCl (Narcan) 0.1 mg IV Q2MIN PRN PRN Reason: Opiate Reversal Ondansetron HCl (Zofran Odt) 4 mg SL Q4HP PRN PRN Reason: Nausea And Vomiting Last Admin: 04/30/18 17:12 Dose: 4 mg Polyethylene Glycol (Miralax) 17 gm PO DAILY PRN PRN Reason: Constipation Last Admin: 05/07/18 10:14 Dose: 17 gm Potassium Ch[facility] ([facility]dur) [facility] Last Admin: 05/10/18 08:26 Dose: 20 meq Senna (Senokot) 1 tab PO BID [facility] Last Admin: 05/10/18 08:27 Dose: 1 tab Sodium Chloride (Saline Flush) 10 ml IV UD PRN PRN Reason: FLUSH Last Admin: 05/09/18 04:33 Dose: 10 ml Sodium Chloride (Saline Flush) 10 ml IV Q12 [facility] Last Admin: 05/09/18 20:09 Dose: 10 ml Vitamin D (Vitamin D3) 2,000 unit PO DAILY [facility] Last Admin: 05/10/18 08:28 Dose: 2,000 unit - ABG Interpretation ABG results: 05/06/18 08:16 ABG Methemoglobin 0.3 L VBG pH 7.41 VBG pCO2 68.4 H* VBG pO2 57 H VBG HCO3 41.9 H* VBG Total CO2 44.0 H* VBG O2 Saturation 85.2 H VBG Base Excess 14.8 H Medical - PN: A/P - Time Spent With Patient Total time spent is greater than 50% in coordination of care (as documented) at patient's floor/unit and/or counseling patient: - Narrative A/P Narrative: a/p Anasarca - much improved. Acute cor pulmonale- continue on Bumex 2mg bid, metolazone 2.5mg daily and potassium chloride 20mg daily, neg [id number] L since admission Morbid obesity- aggressive intervention, pt unable to ambulate stuck in bed, bid pt and ot to help get pt back to baseline. PT notes they do not have all the equipment here to help further the patients PT Goals, he is doing all the exercises he can in bed. We need more equipment to mobilize the patient. Obstructive sleep apnea- cpap at night Acute on Chronic renal failure- creat stable 1.5-2.0, last creat 1.8, bicarb 39 Atrial fibrillation, s/p pacemaker-rate controlled with digoxin, off beta blockers, digoxin every other day Bed bound status- aggressive ot/pt Decubitus ulcer, h/o wound are following HTN- bp stable off anti hypertensives Metabolic alkalosis, combination of doug, co2 retention and diuresis, ph 7.41 on vbg today, off diamox,. DVT on eliquis now, off coumadin. Full code Awaiting placement, . Medical - PN: Qual - VTE Deep Vein Thrombosis/Pulmonary Embolism Present on Admission: No
--- NOTE | 2018-05-10 12:03 | XRay Report ---
CLINICAL INFORMATION: Foot pain. Heart failure. Renal failure. TECHNIQUE: AP, oblique, lateral right foot COMPARISON: None. FINDINGS: No right foot fracture. No cortical destruction or periosteal new bone formation. No evidence for osteomyelitis. There are hammertoe deformities of all digits. No soft tissue gas. No radiopaque foreign body. Incidental note is made of a small plantar calcaneal spur IMPRESSION: 1. No acute abnormality. 2. No evidence for osteomyelitis. No soft tissue gas. Interpreted and Authenticated by: Darian Campos 05/10/18
[2018-05-11] MEDS: HYDROcodone/APAP 10/325MG TABLET PO PRN ×2 (07:54→16:56)
[2018-05-11] MEDS: METOLAZONE 2.5 MG TABLET PO SCH (07:55)
[2018-05-11] MEDS: POTASSIUM CHLORIDE 20 MEQ TABLET PO SCH (07:55)
[2018-05-11] MEDS: BUMETANIDE 1 MG TABLET PO SCH ×2 (08:30→15:40)
[2018-05-11] MEDS: VITAMIN D3 1,000 UNIT TABLET PO SCH (09:29)
[2018-05-11] MEDS: APIXABAN 2.5 MG TABLET PO SCH ×2 (09:29→20:51)
[2018-05-11] MEDS: SENNOSIDES 1 TABLET PO SCH ×2 (09:29→20:51)
[2018-05-11] MEDS: DOCUSATE SODIUM 100 MG CAPSULE PO SCH ×2 (09:30→20:51)
[2018-05-11] MEDS ORDERED: MAGNESIUM SULFATE 2 GM/50 ML BAG IV ONE (09:34)
[2018-05-11] MEDS: 0.9 % SODIUM CHLORIDE 10 ML SYRINGE IV SCH ×2 (09:35→20:52)
--- NOTE | 2018-05-11 09:38 | Internal Med Progress Note ---
Medical - PN: Subj Patient information: Note initiated : 05/11/18 at 9:35 am Service Date, if different from initiated Date: [] Patient: Branden Espinosa 57 y/o M admitted on 04/20/18 for Worsening Renal Failure. Chief Complaint: [] Interval history: Mr. Espinosa is a 57 year old Male with history of morbid obesity, bedbound, severe pulmonary hypertension, congestive heart failure, chronic kidney disease atrial fibrillation. The patient presents to the hospital for worsening shortness of breath and increased edema in his body. The patient was discharged from this facility I believe on 20 March. He was transferred to [facility] for placement of a pacemaker. His admission in March was also for increased swelling, worsening renal function and was treated as congestive heart failure. At that point in time the patient was supratherapeutic and his INR as well as supratherapeutic and his digoxin level. Digoxin was held. The patient eventually was transferred to a higher center for placement of a pacemaker because of significant cardiac pauses. He underwent the pacemaker placement and was discharged from the facility. According to the patient since his discharge from the tertiary facility the patient has been having increased swelling in his lower extremities. This has been progressively getting worse, this has been accompanied by shortness of breath. He denies any other acute complaints or concerns. He denies taking in too much fluid he is watching his salt intake and is not taking any NSAIDs. The patient denies any chest pain denies any dizziness he does have intermittent changes in vision. The patient was being followed by nephrology in the outpatient, his dose of diuretics were being changed however despite this the patient's edema kept getting worse and therefore the patient was asked to come to the emergency room for evaluation. In the ER the patient was noted to have worsening renal failure, elevated bnp, significant edema, cxr was clear, showed resolving pna, ekg showed poor voltate , afib, 04/21 Patient seen and examined, overnight was not able to sleep well, there was some malfunction in the bariatric bed which kept beeping. Patient tired this morning. He has extensive erythema on his back possible fungal rash. Patient has not had a bowel movement for the last few days wanting a stool softener. He notes his shortness of breath is somewhat better but still not able to lie flat, denies any chest pain nausea vomiting. Appreciate nephrology input. Patient remains on IV Lasix, negative balance since yesterday,-1550 04/22 Pt seen examined, tired today, did not sleep well, bp on the lower end of normal , neg 1500 yesterday Pt has no other complaints. had bm this after noon. nephrology following. labs stable. 04/23 Pt seen examined, slept well last night, denies any acute complaints, noted some chest discomfort yesterday, no chest tightness or pressure, just a flicker, Pt is already anticoagulated with coumadin and INR is therapeutic The patient Creat is trending down, creat is 2.2, He is diuresing well, Neg 5L since admission Plan to use chlorothiazide this afternoon, and then followed by lasix to see if we can improve diuresis 04/24 Pt seen examined, no acute overnight events, [place] [id number] since admission, still has significant edema Start on metolozone 5mg daily, continue IV lasix 80 bid add acetazolamide one dose today for worsening metabolic alkalosis. BP stable HR stable Dig level 1.2-1.3, pt has pacemaker, intermittently pacing on tele inr therapeutic PT feels cpap is not giving enough pressure, even at 14mmhg, have spoken with RT to look into the device. 04/24 [place] [id number] since admission, pt feels ok, still has significant dependent edema, I feel we can switch him to oral meds and see if he continues to diurese on same d/c iv lasix, start on po bumex, and metolozone 5mg before bumex and monitor urine output The patient bed was not zeroed in, and therefore the daily weights are not accurate, I am not using daily weight to monitor treatment at this time. 04/26-patient doing well. No overnight events. Over 1600 cc net negative in 24 hours. Lower dose of metolazone. Continue Diamox due to contraction alkalosis. Patient undergoing strengthening exercises. Case management arranging SNF transfer. No fever chills shortness of breath. 04/27 -patient doing well. No overnight events. No concerns per staff. No fever chills or shortness of breath. Diuresing well. Additional 2700 cc negative. Bicarbonate at 42 with contraction alkalosis on Diamox. Creatinine 1.8. Ongoing physical therapy. Nephrology on board. 04/28-patient doing better. Ongoing diuresis. No dyspnea/chest pain. Ongoing physical therapy. Continues to be bedridden due to morbid obesity. Anticipate SNF transfer. Case management and coordinating. Creatinine 1.9. Bicarbonate 44 on twice-daily Diamox. April 29-patient doing well. No overnight events. Awaiting SNF transfer. Additional 2000 cc net negative. Bicarbonate 45. On Diamox for contraction alkalosis. Creatinine 1.7. Ongoing physical therapy. No concerns per staff 04/30-patient doing well. No overnight events. Diuresis additional 2400 cc. On combination diuretics. Electrolytes stable. Ongoing physical therapy. Case management coordinating discharge planning. Likely likely stay inpatient through the weekend until placement 05/01-patient doing well. No overnight events. No concerns per staff. No fever chills diuresing well. Only 6/metolazone/acetazolamide. Proteinuria currently being managed by nephrology. Electrophoresis/free light chains ordered per nephrology. Case management arranging SNF transfer. Anticipate additional 48 hours until placement can be arranged. 05/02-patient resting comfortably. No overnight events. Additional 2000 cc net negative fluid status. Creatinine around 2. Persistent alkalosis with bicarbonate 43. On twice a day Diamox. Still awaiting SNF placement. Significant excoriation bilateral dependent sacral gluteal area, on frequent turning/repositioning to avoid decubiti. Ongoing physical therapy 05/03 Pt seen examined, no acute overnight issues, tolerating po diet well, neg 28L since admission, pt labs are stable, on IV acetazolamide, bumex and metolozone. Will d/c the IV acetazolamide and see how his bicarb trends No safe discharge plan yet. Working with case management for discharge planning. 05/04 pt seen examined, no acute issue tolerating po well neg 2L since yesterday bicarb stable off acetazolamide awating xfer, cret 1.7, improved from before. 05/05 Pt seen examined no acute overnight events, he is neg 4 L yesterday, total of neg 34L since admission no new complaints he did get out of bed to chair today with the help of 3 people, not strong enough to do by self, some knee pain after the transfer awaiting social services aide to find place for the patient. 05/06 Pt seen examined, no acute issues INR 1.7 pt has no new complaints or concerns bicart is 41 vbg shows ph 7.41 continue present treatment plan for d/c to snf on wednesday, it seems the rehab and pts insurance has worked out an payment arrangement Pt needs bariatric bed aggresive pt, twice daily, ot twice daily to get him back on his feet 05/07 Pt seen examined, no acute overnight events, doing well neg 40L since admission awaiting placement on tuesday 05/08 Pt seen examined, in bed comfortable tolerating po well no acute complaints of issues diuresing well creat down to 1.5, bicarb 41 awaiting placement on wednesday 05/09 still awaiting clearnce from insurance company no changes from yesterday pt continuing to diurese well Case management informed pt should be covered for eliquis inr sub therapeutic d/c coumadin and start on eliquis. 05/10 pt seen examined, labs reviewed bicarb 39, creat up to 1.8, pt urine output is good, eliquis started, did not sleep well,pt feels its secondary to eliquis, I am not sure if eliquis should have meaningful [employer] effects will monitor for now. It seems the deal with insurance company and SNF fell through and the patient still is waiting for placement. 05/11 Pt seen examined,[place] [id number] since admission awaiting placement. Pertinent ROS: Denies headache, dizziness Denies chest pain, palpitations Denies cough or shortness of breath Denies abdominal pain, nausea or vomiting. - Constitutional Vitals: Vital Signs Temp Pulse Resp BP Pulse Ox 97.8 F 106 H 12 119/74 95 05/11/18 07:15 05/11/18 07:15 05/11/18 07:15 05/11/18 07:15 05/11/18 07:15 Period Temp Pulse Resp BP Sys/Andujar Pulse Ox Last 24 Hr 97.4 F-99.3 F 90-110 12-20 99-124/66-78 94-97 Intake and Output 05/10/18 05/11/18 05/11/18 21:59 05:59 13:59 Intake Total 910 / 910 90 / 90 Output Total 1895 / 1895 1050 / 1050 575 / 575 Balance -985 / -985 -960 / -960 -575 / -575 Weight 358 lb Intake & Output: Intake & Output 05/10/18 05/11/18 05/11/18 21:59 05:59 13:59 Intake Total 910 / 910 90 / 90 Output Total 1895 / 1895 1050 / 1050 575 / 575 Balance -985 / -985 -960 / -960 -575 / -575 Weight 358 lb Intake: Oral 910 / 910 90 / 90 Output: Void Amount 1895 / 1895 1050 / 1050 575 / 575 Other: Meal Yogurt, Javier crackers (2), Peanut butter (2) Percent of Meal Consumed 100% Feeding Ability Independent # Voids 5 Exam: Constitutional; Afebrile, cooperative, alert, not in distress. Respiratory system: Air Entry equal on both sides, No crackles or wheezing, no rhonchi. CVS- Rate rhythm irregular, S1,S2 heard, no gallop, no rub. Abdomen- Soft nontender abdomen, no organomegaly, no tenderness, no guarding or rigidity, [employer]- AOOx3, moving all extremities, no gross focal deficit noted. Edema in dependent region is getting better. Medical - PN: Obj Da - Labs CBC & Chem 7: 05/02/18 04:15 05/10/18 07:10 Labs: Abnormal Lab Results 05/10/18 05/09/18 07:10 04:30 PT 20.4 H INR 1.7 H Chloride 89 L Carbon Dioxide 37 H BUN 48 H Creatinine 1.8 H Uric Acid 13.8 H Total Bilirubin 1.3 H Direct Bilirubin 0.6 H GGT 73 H Alkaline Phosphatase 122 H Globulin 5.2 H Albumin/Globulin Ratio 0.6 L Meds: Medications Acetaminophen (Tylenol) 650 mg PO Q6HP PRN PRN Reason: PAIN/FEVER > 101 Hydrocodone Bitart/Acetaminophen (Cos Cob 10/325mg) 2 tab PO Q6HP PRN PRN Reason: Pain Last Admin: 05/11/18 07:54 Dose: 2 tab Bumetanide (Bumex) 2 mg PO BIDD [facility] Last Admin: 05/11/18 08:30 Dose: 2 mg Digoxin (Lanoxin) 125 mcg PO Q48H [facility] Last Admin: 05/09/18 14:23 Dose: 125 mcg Docusate Sodium (Colace) 100 mg PO BID [facility] Last Admin: 05/10/18 20:27 Dose: 100 mg Heparin Sodium (Porcine) (Heparin Flush) 2 ml IV Q12 [facility] Last Admin: 05/10/18 20:27 Dose: 2 ml Magnesium Sulfate (Magnesium Sulfate) 2 gm in 50 mls @ 50 mls/hr IV ONCE ONE Stop: 05/11/18 10:33 Metolazone (Zaroxolyn) 2.5 mg PO DAILY@0730 [facility] Last Admin: 05/11/18 07:55 Dose: 2.5 mg Naloxone HCl (Narcan) 0.1 mg IV Q2MIN PRN PRN Reason: Opiate Reversal Ondansetron HCl (Zofran Odt) 4 mg SL Q4HP PRN PRN Reason: Nausea And Vomiting Last Admin: 04/30/18 17:12 Dose: 4 mg Polyethylene Glycol (Miralax) 17 gm PO DAILY PRN PRN Reason: Constipation Last Admin: 05/07/18 10:14 Dose: 17 gm [facility] Admin: 05/11/18 07:55 Dose: 20 meq Senna (Senokot) 1 tab PO BID [facility] Last Admin: 05/10/18 20:27 Dose: 1 tab Sodium Chloride (Saline Flush) 10 ml IV UD PRN PRN Reason: FLUSH Last Admin: 05/09/18 04:33 Dose: 10 ml Sodium Chloride (Saline Flush) 10 ml IV Q12 [facility] Last Admin: 05/10/18 20:27 Dose: 10 ml Vitamin D (Vitamin D3) 2,000 unit PO DAILY [facility] Last Admin: 05/10/18 08:28 Dose: 2,000 unit - ABG Interpretation ABG results: 05/06/18 08:16 ABG Methemoglobin 0.3 L VBG pH 7.41 VBG pCO2 68.4 H* VBG pO2 57 H VBG HCO3 41.9 H* VBG Total CO2 44.0 H* VBG O2 Saturation 85.2 H VBG Base Excess 14.8 H Medical - PN: A/P - Time Spent With Patient Total time spent is greater than 50% in coordination of care (as documented) at patient's floor/unit and/or counseling patient: - Narrative A/P Narrative: a/p Anasarca - much improved. Acute cor pulmonale- continue on Bumex 2mg bid, metolazone 2.5mg daily and potassium chloride 20mg daily, neg [id number] mL since admission Morbid obesity- aggressive intervention, pt unable to ambulate stuck in bed, bid pt and ot to help get pt back to baseline. PT notes they do not have all the equipment here to help further the patients PT Goals, he is doing all the exercises he can in bed. We need more equipment to mobilize the patient. Obstructive sleep apnea- cpap at night Acute on Chronic renal failure- creat stable 1.5-2.0, last creat 1.8, bicarb 39 Atrial fibrillation, s/p pacemaker-rate controlled with digoxin, off beta blockers, digoxin every other day Bed bound status- aggressive ot/pt Decubitus ulcer, h/o wound are following HTN- bp stable off anti hypertensives Metabolic alkalosis, combination of doug, co2 retention and diuresis, ph 7.41 on vbg today, off diamox,. DVT on eliquis now, off coumadin. Full code Awaiting placement, . Medical - PN: Qual - VTE Deep Vein Thrombosis/Pulmonary Embolism Present on Admission: No
[2018-05-11] MEDS: DIGOXIN 125 MCG TABLET PO SCH (15:40)
[2018-05-12] MEDS: 0.9 % SODIUM CHLORIDE 10 ML SYRINGE IV PRN ×2 (04:04→20:23)
[2018-05-12 05:32] LABS: Basophils # (Auto) 0 K/mcL (0.0-0.3); Basophils % (Auto) 0.4 % (0.0-2.0); Eosinophils # (Auto) 0.5 K/mcL (0.0-0.7); Eosinophils % (Auto) 9.3 % (0.0-7.0); Granulocytes % (Auto) 57.3 % (38.0-78.0); Lymphocytes # (Auto) 1.2 K/mcL (1.5-4.8); Mean Corpuscular HGB Conc 33.6 g/dL (31.0-36.0); Mean Corpuscular Hemoglobin 33.6 pg (26.0-34.0); Monocytes # (Auto) 0.6 K/mcL (0.1-0.9); Platelet Count 192 K/mcL (140-440); RBC 3.14 M/mcL (4.50-5.90)
[2018-05-12 06:43] LABS: ALT/SGPT 10 U/l (0-40); Albumin 3.3 gm/dL (3.2-5.2); Albumin/Globulin Ratio 0.6 (1.0-2.3); Alkaline Phosphatase 131 U/L (39-117); Blood Urea Nitrogen 54 mg/dl (6-20)
[2018-05-12] MEDS: HYDROcodone/APAP 10/325MG TABLET PO PRN ×2 (08:02→14:31)
[2018-05-12] MEDS: METOLAZONE 2.5 MG TABLET PO SCH (08:03)
[2018-05-12] MEDS: VITAMIN D3 1,000 UNIT TABLET PO SCH (10:22)
[2018-05-12] MEDS: APIXABAN 2.5 MG TABLET PO SCH ×2 (10:22→20:20)
[2018-05-12] MEDS: DOCUSATE SODIUM 100 MG CAPSULE PO SCH ×2 (10:22→20:18)
[2018-05-12] MEDS: BUMETANIDE 1 MG TABLET PO SCH ×2 (10:22→15:51)
[2018-05-12] MEDS: SENNOSIDES 1 TABLET PO SCH ×2 (10:22→20:18)
[2018-05-12] MEDS: POTASSIUM CHLORIDE 20 MEQ TABLET PO SCH (10:22)
[2018-05-12] MEDS: 0.9 % SODIUM CHLORIDE 10 ML SYRINGE IV SCH ×2 (10:23→20:23)
--- NOTE | 2018-05-12 10:38 | Internal Med Progress Note ---
Medical - PN: Subj Patient information: Note initiated : 05/12/18 at 10:33 am Service Date, if different from initiated Date: [] Patient: Branden Espinosa 57 y/o M admitted on 04/20/18 for Worsening Renal Failure. Chief Complaint: [] Interval history: Mr. Espinosa is a 57 year old Male with history of morbid obesity, bedbound, severe pulmonary hypertension, congestive heart failure, chronic kidney disease atrial fibrillation. The patient presents to the hospital for worsening shortness of breath and increased edema in his body. The patient was discharged from this facility I believe on 20 March. He was transferred to [facility] for placement of a pacemaker. His admission in March was also for increased swelling, worsening renal function and was treated as congestive heart failure. At that point in time the patient was supratherapeutic and his INR as well as supratherapeutic and his digoxin level. Digoxin was held. The patient eventually was transferred to a higher center for placement of a pacemaker because of significant cardiac pauses. He underwent the pacemaker placement and was discharged from the facility. According to the patient since his discharge from the tertiary facility the patient has been having increased swelling in his lower extremities. This has been progressively getting worse, this has been accompanied by shortness of breath. He denies any other acute complaints or concerns. He denies taking in too much fluid he is watching his salt intake and is not taking any NSAIDs. The patient denies any chest pain denies any dizziness he does have intermittent changes in vision. The patient was being followed by nephrology in the outpatient, his dose of diuretics were being changed however despite this the patient's edema kept getting worse and therefore the patient was asked to come to the emergency room for evaluation. In the ER the patient was noted to have worsening renal failure, elevated bnp, significant edema, cxr was clear, showed resolving pna, ekg showed poor voltate , afib, 04/21 Patient seen and examined, overnight was not able to sleep well, there was some malfunction in the bariatric bed which kept beeping. Patient tired this morning. He has extensive erythema on his back possible fungal rash. Patient has not had a bowel movement for the last few days wanting a stool softener. He notes his shortness of breath is somewhat better but still not able to lie flat, denies any chest pain nausea vomiting. Appreciate nephrology input. Patient remains on IV Lasix, negative balance since yesterday,-1550 04/22 Pt seen examined, tired today, did not sleep well, bp on the lower end of normal , neg 1500 yesterday Pt has no other complaints. had bm this after noon. nephrology following. labs stable. 04/23 Pt seen examined, slept well last night, denies any acute complaints, noted some chest discomfort yesterday, no chest tightness or pressure, just a flicker, Pt is already anticoagulated with coumadin and INR is therapeutic The patient Creat is trending down, creat is 2.2, He is diuresing well, Neg 5L since admission Plan to use chlorothiazide this afternoon, and then followed by lasix to see if we can improve diuresis 04/24 Pt seen examined, no acute overnight events, [place] [id number] since admission, still has significant edema Start on metolozone 5mg daily, continue IV lasix 80 bid add acetazolamide one dose today for worsening metabolic alkalosis. BP stable HR stable Dig level 1.2-1.3, pt has pacemaker, intermittently pacing on tele inr therapeutic PT feels cpap is not giving enough pressure, even at 14mmhg, have spoken with RT to look into the device. 04/24 [place] [id number] since admission, pt feels ok, still has significant dependent edema, I feel we can switch him to oral meds and see if he continues to diurese on same d/c iv lasix, start on po bumex, and metolozone 5mg before bumex and monitor urine output The patient bed was not zeroed in, and therefore the daily weights are not accurate, I am not using daily weight to monitor treatment at this time. 04/26-patient doing well. No overnight events. Over 1600 cc net negative in 24 hours. Lower dose of metolazone. Continue Diamox due to contraction alkalosis. Patient undergoing strengthening exercises. Case management arranging SNF transfer. No fever chills shortness of breath. 04/27 -patient doing well. No overnight events. No concerns per staff. No fever chills or shortness of breath. Diuresing well. Additional 2700 cc negative. Bicarbonate at 42 with contraction alkalosis on Diamox. Creatinine 1.8. Ongoing physical therapy. Nephrology on board. 04/28-patient doing better. Ongoing diuresis. No dyspnea/chest pain. Ongoing physical therapy. Continues to be bedridden due to morbid obesity. Anticipate SNF transfer. Case management and coordinating. Creatinine 1.9. Bicarbonate 44 on twice-daily Diamox. April 29-patient doing well. No overnight events. Awaiting SNF transfer. Additional 2000 cc net negative. Bicarbonate 45. On Diamox for contraction alkalosis. Creatinine 1.7. Ongoing physical therapy. No concerns per staff 04/30-patient doing well. No overnight events. Diuresis additional 2400 cc. On combination diuretics. Electrolytes stable. Ongoing physical therapy. Case management coordinating discharge planning. Likely likely stay inpatient through the weekend until placement 05/01-patient doing well. No overnight events. No concerns per staff. No fever chills diuresing well. Only 6/metolazone/acetazolamide. Proteinuria currently being managed by nephrology. Electrophoresis/free light chains ordered per nephrology. Case management arranging SNF transfer. Anticipate additional 48 hours until placement can be arranged. 05/02-patient resting comfortably. No overnight events. Additional 2000 cc net negative fluid status. Creatinine around 2. Persistent alkalosis with bicarbonate 43. On twice a day Diamox. Still awaiting SNF placement. Significant excoriation bilateral dependent sacral gluteal area, on frequent turning/repositioning to avoid decubiti. Ongoing physical therapy 05/03 Pt seen examined, no acute overnight issues, tolerating po diet well, neg 28L since admission, pt labs are stable, on IV acetazolamide, bumex and metolozone. Will d/c the IV acetazolamide and see how his bicarb trends No safe discharge plan yet. Working with case management for discharge planning. 05/04 pt seen examined, no acute issue tolerating po well neg 2L since yesterday bicarb stable off acetazolamide awating xfer, cret 1.7, improved from before. 05/05 Pt seen examined no acute overnight events, he is neg 4 L yesterday, total of neg 34L since admission no new complaints he did get out of bed to chair today with the help of 3 people, not strong enough to do by self, some knee pain after the transfer awaiting hospital social worker to find place for the patient. 05/06 Pt seen examined, no acute issues INR 1.7 pt has no new complaints or concerns bicart is 41 vbg shows ph 7.41 continue present treatment plan for d/c to snf on wednesday, it seems the rehab and pts insurance has worked out an payment arrangement Pt needs bariatric bed aggresive pt, twice daily, ot twice daily to get him back on his feet 05/07 Pt seen examined, no acute overnight events, doing well neg 40L since admission awaiting placement on tuesday 05/08 Pt seen examined, in bed comfortable tolerating po well no acute complaints of issues diuresing well creat down to 1.5, bicarb 41 awaiting placement on wednesday 05/09 still awaiting clearnce from insurance company no changes from yesterday pt continuing to diurese well Case management informed pt should be covered for eliquis inr sub therapeutic d/c coumadin and start on eliquis. 05/10 pt seen examined, labs reviewed bicarb 39, creat up to 1.8, pt urine output is good, eliquis started, did not sleep well,pt feels its secondary to eliquis, I am not sure if eliquis should have meaningful VACCINATOR effects will monitor for now. It seems the deal with insurance company and SNF fell through and the patient still is waiting for placement. 05/11 Pt seen examined,[place] [id number] since admission awaiting placement. 05/12 Patient seen examined, no acute overnight events, [place] [id number] neg edema much better, cut back on the dose of diuretics to 1mg bid of bumex, continue metolozone relax some fluid restriction to 1500ml/24 hrs Extended care conference held, plan to get patient home when we are able to achieve the necessary equipment/ and ensure that he is able to do transfers at home, Case management to recheck if Rehab [facility] if an option. Pertinent ROS: Denies headache, dizziness Denies chest pain, palpitations Denies cough or shortness of breath Denies abdominal pain, nausea or vomiting. - Constitutional Vitals: Vital Signs Temp Pulse Resp BP Pulse Ox 98.3 F 90 14 115/76 97 05/12/18 08:11 05/12/18 08:11 05/12/18 08:11 05/12/18 08:11 05/12/18 08:11 Period Temp Pulse Resp BP Sys/Andujar Pulse Ox Last 24 Hr 97.2 F-99 F 81-110 12-17 103-125/71-81 95-97 Intake and Output 05/11/18 05/12/18 05/12/18 21:59 05:59 13:59 Intake Total 590 / 590 200 / 200 Output Total 1275 / 1275 600 / 600 200 / 200 Balance -685 / -685 -600 / -600 0 / 0 Weight 356 lb 6.4 oz Intake & Output: Intake & Output 05/11/18 05/12/18 05/12/18 21:59 05:59 13:59 Intake Total 590 / 590 200 / 200 Output Total 1275 / 1275 600 / 600 200 / 200 Balance -685 / -685 -600 / -600 0 / 0 Weight 356 lb 6.4 oz Intake: Oral 590 / 590 200 / 200 Output: Void Amount 1275 / 1275 600 / 600 200 / 200 Other: Meal Dinner Breakfast Percent of Meal Consumed 75% 50% Feeding Ability Independent # Voids 1 Exam: Constitutional; Afebrile, cooperative, alert, not in distress. Morbidly obese Respiratory system: Air Entry equal on both sides, No crackles or wheezing, no rhonchi. CVS- Rate rhythm irregular, S1,S2 heard, no gallop, no rub. Abdomen- Soft nontender abdomen, no organomegaly, no tenderness, no guarding or rigidity, VACCINATOR- AOOx3, moving all extremities, no gross focal deficit noted. edema- much improved, still some in the upper thighs and lower back region, but not tense as before Medical - PN: Obj Da - Labs CBC & Chem 7: 05/12/18 04:09 05/12/18 04:09 Labs: Abnormal Lab Results 05/12/18 05/12/18 05/10/18 04:09 04:09 07:10 RBC 3.14 L Hgb 10.6 L Hct 31.4 L RDW 15.0 H Eos % (Auto) 9.3 H Lymph # (Auto) 1.2 L Chloride 89 L 89 L Carbon Dioxide 36 H 37 H BUN 54 H 48 H Creatinine 1.6 H 1.8 H Uric Acid 13.8 H Total Bilirubin 1.5 H 1.3 H Direct Bilirubin 0.6 H GGT 73 H Alkaline Phosphatase 131 H 122 H Total Protein 8.7 H Globulin 5.4 H 5.2 H Albumin/Globulin Ratio 0.6 L 0.6 L Meds: Medications Acetaminophen (Tylenol) 650 mg PO Q6HP PRN PRN Reason: PAIN/FEVER > 101 Hydrocodone Bitart/Acetaminophen ([place] 10/325mg) 2 tab PO Q6HP PRN PRN Reason: Pain Last Admin: 05/12/18 08:02 Dose: 2 tab Bumetanide (Bumex) 2 mg PO BIDD [facility] Last Admin: 05/12/18 10:22 Dose: 2 mg Digoxin (Lanoxin) 125 mcg PO Q48H [facility] Last Admin: 05/11/18 15:40 Dose: 125 mcg Docusate Sodium (Colace) 100 mg PO BID [facility] Last Admin: 05/12/18 10:22 Dose: 100 mg Heparin Sodium (Porcine) (Heparin Flush) 2 ml IV Q12 [facility] Last Admin: 05/12/18 10:22 Dose: 2 ml Metolazone (Zaroxolyn) 2.5 mg PO DAILY@0730 [facility] Last Admin: 05/12/18 08:03 Dose: 2.5 mg Naloxone HCl (Narcan) 0.1 mg IV Q2MIN PRN PRN Reason: Opiate Reversal Ondansetron HCl (Zofran Odt) 4 mg SL Q4HP PRN PRN Reason: Nausea And Vomiting Last Admin: 04/30/18 17:12 Dose: 4 mg Polyethylene Glycol (Miralax) 17 gm PO DAILY PRN PRN Reason: Constipation Last Admin: 05/07/18 10:14 Dose: 17 gm Potassium Chloride (Kdur) 20 meq [facility] Last Admin: 05/12/18 10:22 Dose: 20 meq Senna (Senokot) 1 tab PO BID [facility] Last Admin: 05/12/18 10:22 Dose: 1 tab Sodium Chloride (Saline Flush) 10 ml IV UD PRN PRN Reason: FLUSH Last Admin: 05/12/18 04:04 Dose: 10 ml Sodium Chloride (Saline Flush) 10 ml IV Q12 [facility] Last Admin: 05/12/18 10:23 Dose: 10 ml Vitamin D (Vitamin D3) 2,000 unit PO DAILY [facility] Last Admin: 05/12/18 10:22 Dose: 2,000 unit - ABG Interpretation ABG results: 05/06/18 08:16 ABG Methemoglobin 0.3 L VBG pH 7.41 VBG pCO2 68.4 H* VBG pO2 57 H VBG HCO3 41.9 H* VBG Total CO2 44.0 H* VBG O2 Saturation 85.2 H VBG Base Excess 14.8 H Medical - PN: A/P - Time Spent With Patient Total time spent is greater than 50% in coordination of care (as documented) at patient's floor/unit and/or counseling patient: - Narrative A/P Narrative: a/p Anasarca - much improved. Acute cor pulmonale- change bumex from 2mg bid to 1mg bid, metolazone 2.5mg daily and potassium chloride 20mg daily. Morbid obesity- aggressive intervention, pt unable to ambulate stuck in bed, bid pt and ot to help get pt back to baseline. PT notes they do not have all the equipment here to help further the patients PT Goals, he is doing all the exercises he can in bed. We need more equipment to mobilize the patient. Obstructive sleep apnea- cpap at night Acute on Chronic renal failure- creat is 1.6, bun 54, bicarb 36, K 3.6 Atrial fibrillation, s/p pacemaker-rate controlled with digoxin, off beta blockers, digoxin every other day Bed bound status- aggressive ot/pt Decubitus ulcer, h/o wound are following HTN- bp stable off anti hypertensives Metabolic alkalosis, combination of doug, co2 retention and diuresis, ph 7.41 on vbg today, off diamox,. DVT on eliquis now, off coumadin. Full code Awaiting placement, continue with rehab while here, . Medical - PN: Qual - VTE Deep Vein Thrombosis/Pulmonary Embolism Present on Admission: No
--- NOTE | 2018-05-12 12:54 | General Surgery Progress Note ---
Subjective Patient reports: no new complaints, other (Progress and developments reviewed with Dr. Alvarenga, Hospitalist. Wound/s examined with Pam FRANKLIN In patient [facility]ound[facility]. ) Narrative: Note initiated : 05/12/18 at 12:48 pm Service Date, if different from initiated Date: [] Patient: Branden Espinosa 57 y/o M admitted on 04/20/18 for Worsening Renal Failure. Chief Complaint: [] Objective Temp Pulse Resp BP Pulse Ox 98.3 F 90 14 115/76 97 05/12/18 08:11 05/12/18 08:11 05/12/18 08:11 05/12/18 08:11 05/12/18 08:11 AVSS. Comfortable at rest. Moving well in bed. Lost over 100 ++ pounds on careful diuresis. Checked Discharge or transfer plans. Wounds examined and patient log rolled to examine back from head to lower legs. Right posterior lower leg wound is dry and clean. No odor and No drainage. Will treat with Hydrofera Blue Ready local application and change q weekly. NO OPEN SKIN ULCERS or wounds sacrum, back. Moisture associated dry dermatitis back of left thigh, NEEDS daily cleansing with Chlorhexidine soap, pat dry and topical application of skin repair or antifungal skin cream to affected areas daily. - Additional Data Intake & Output - Last 24 hours: Intake & Output 05/10/18 05/11/18 05/12/18 05/13/18 05:59 05:59 05:59 05:59 Intake Total 1100 / 1100 1000 / 1000 930 / 930 200 / 200 Output Total 3770 / 3770 3145 / 3145 3100 / 3100 200 / 200 Balance -2670 / -2670 -2145 / -2145 -2170 / -2170 0 / 0 Weight 363 lb 9.6 oz 358 lb 356 lb 6.4 oz - Labs 05/12/18 04:09 05/12/18 04:09 Diabetes panel 05/12/18 Range/Units 04:09 Sodium 137 (133-145) mmol/L Potassium 3.6 (3.3-5.1) mmol/L Chloride 89 L (96-108) mmol/L Carbon Dioxide 36 H (22-30) mmol/L BUN 54 H (6-20) mg/dl Creatinine 1.6 H (0.7-1.2) mg/dl Glucose 101 (70-105) mg/dL Calcium 9.5 (8.6-10.4) mg/dl AST 37 (0-37) U/l ALT 10 (0-40) U/l Alkaline Phosphatase 131 H (39-117) U/L Total Protein 8.7 H (5.9-8.4) gm/dL Albumin 3.3 (3.2-5.2) gm/dL Calcium panel 05/12/18 Range/Units 04:09 Calcium 9.5 (8.6-10.4) mg/dl Albumin 3.3 (3.2-5.2) gm/dL Pituitary panel 05/12/18 Range/Units 04:09 Sodium 137 (133-145) mmol/L Potassium 3.6 (3.3-5.1) mmol/L Chloride 89 L (96-108) mmol/L Carbon Dioxide 36 H (22-30) mmol/L BUN 54 H (6-20) mg/dl Creatinine 1.6 H (0.7-1.2) mg/dl Glucose 101 (70-105) mg/dL Calcium 9.5 (8.6-10.4) mg/dl Adrenal panel 05/12/18 Range/Units 04:09 Sodium 137 (133-145) mmol/L Potassium 3.6 (3.3-5.1) mmol/L Chloride 89 L (96-108) mmol/L Carbon Dioxide 36 H (22-30) mmol/L BUN 54 H (6-20) mg/dl Creatinine 1.6 H (0.7-1.2) mg/dl Glucose 101 (70-105) mg/dL Calcium 9.5 (8.6-10.4) mg/dl Total Bilirubin 1.5 H (0.0-1.0) mg/dL AST 37 (0-37) U/l ALT 10 (0-40) U/l Alkaline Phosphatase 131 H (39-117) U/L Total Protein 8.7 H (5.9-8.4) gm/dL Albumin 3.3 (3.2-5.2) gm/dL Assessment and Plan (1) Infected decubitus ulcer Status: Chronic Current Visit: No (2) Ulcer of right lower extremity with fat layer exposed Problem details: Palliative wound care. Clean with NS and apply antibiotic soaked wet / dry dressing changes three times a day. Status: Chronic Current Visit: No - Narrative A/P Narrative: Assessment: Satisfactory progress from skin and wound care point of view. Plan: Conservative management and continuation of ongoing wound care as ordered. Patient to call wound center for any Qs or for follow up appointment. - Time Spent With Patient Total time spent is greater than 50% in coordination of care (as documented) at patient's floor/unit and/or counseling patient: 15 - 24 minutes
[2018-05-12] MEDS: ONDANSETRON ODT 4 MG TABLET SL PRN (17:28)
[2018-05-13] MEDS: METOLAZONE 2.5 MG TABLET PO SCH (07:06)
[2018-05-13] MEDS: APIXABAN 2.5 MG TABLET PO SCH ×2 (08:45→20:07)
[2018-05-13] MEDS: DOCUSATE SODIUM 100 MG CAPSULE PO SCH ×2 (08:45→20:06)
[2018-05-13] MEDS: VITAMIN D3 1,000 UNIT TABLET PO SCH (08:46)
[2018-05-13] MEDS: SENNOSIDES 1 TABLET PO SCH ×2 (08:46→20:06)
[2018-05-13] MEDS: HYDROcodone/APAP 10/325MG TABLET PO PRN ×2 (08:46→15:27)
[2018-05-13] MEDS: 0.9 % SODIUM CHLORIDE 10 ML SYRINGE IV SCH ×2 (08:53→20:08)
[2018-05-13] MEDS: POTASSIUM CHLORIDE 20 MEQ TABLET PO SCH (08:54)
[2018-05-13] MEDS: BUMETANIDE 1 MG TABLET PO SCH ×2 (08:54→17:51)
[2018-05-13] MEDS: DIGOXIN 125 MCG TABLET PO SCH (14:24)
[2018-05-13] MEDS: POLYETHYLENE GLYCOL 3350 17 GM PACKET PO PRN (15:27)
--- NOTE | 2018-05-13 16:49 | Internal Med Progress Note ---
Medical - PN: Subj Patient information: Note initiated : 05/13/18 at 4:46 pm Service Date, if different from initiated Date: [] Patient: Branden Espinosa 57 y/o M admitted on 04/20/18 for Worsening Renal Failure. Chief Complaint: [] Interval history: Mr. Espinosa is a 57 year old Male with history of morbid obesity, bedbound, severe pulmonary hypertension, congestive heart failure, chronic kidney disease atrial fibrillation. The patient presents to the hospital for worsening shortness of breath and increased edema in his body. The patient was discharged from this facility I believe on 20 March. He was transferred to [facility] for placement of a pacemaker. His admission in March was also for increased swelling, worsening renal function and was treated as congestive heart failure. At that point in time the patient was supratherapeutic and his INR as well as supratherapeutic and his digoxin level. Digoxin was held. The patient eventually was transferred to a higher center for placement of a pacemaker because of significant cardiac pauses. He underwent the pacemaker placement and was discharged from the facility. According to the patient since his discharge from the tertiary facility the patient has been having increased swelling in his lower extremities. This has been progressively getting worse, this has been accompanied by shortness of breath. He denies any other acute complaints or concerns. He denies taking in too much fluid he is watching his salt intake and is not taking any NSAIDs. The patient denies any chest pain denies any dizziness he does have intermittent changes in vision. The patient was being followed by nephrology in the outpatient, his dose of diuretics were being changed however despite this the patient's edema kept getting worse and therefore the patient was asked to come to the emergency room for evaluation. In the ER the patient was noted to have worsening renal failure, elevated bnp, significant edema, cxr was clear, showed resolving pna, ekg showed poor voltate , afib, 04/21 Patient seen and examined, overnight was not able to sleep well, there was some malfunction in the bariatric bed which kept beeping. Patient tired this morning. He has extensive erythema on his back possible fungal rash. Patient has not had a bowel movement for the last few days wanting a stool softener. He notes his shortness of breath is somewhat better but still not able to lie flat, denies any chest pain nausea vomiting. Appreciate nephrology input. Patient remains on IV Lasix, negative balance since yesterday,-[id number] 04/22 Pt seen examined, tired today, did not sleep well, bp on the lower end of normal , neg 1500 yesterday Pt has no other complaints. had bm this after noon. nephrology following. labs stable. 04/23 Pt seen examined, slept well last night, denies any acute complaints, noted some chest discomfort yesterday, no chest tightness or pressure, just a flicker, Pt is already anticoagulated with coumadin and INR is therapeutic The patient Creat is trending down, creat is 2.2, He is diuresing well, Neg 5L since admission Plan to use chlorothiazide this afternoon, and then followed by lasix to see if we can improve diuresis 04/24 Pt seen examined, no acute overnight events, [place] [id number] since admission, still has significant edema Start on metolozone 5mg daily, continue IV lasix 80 bid add acetazolamide one dose today for worsening metabolic alkalosis. BP stable HR stable Dig level 1.2-1.3, pt has pacemaker, intermittently pacing on tele inr therapeutic PT feels cpap is not giving enough pressure, even at 14mmhg, have spoken with RT to look into the device. 04/24 [place] [id number] since admission, pt feels ok, still has significant dependent edema, I feel we can switch him to oral meds and see if he continues to diurese on same d/c iv lasix, start on po bumex, and metolozone 5mg before bumex and monitor urine output The patient bed was not zeroed in, and therefore the daily weights are not accurate, I am not using daily weight to monitor treatment at this time. 04/26-patient doing well. No overnight events. Over 1600 cc net negative in 24 hours. Lower dose of metolazone. Continue Diamox due to contraction alkalosis. Patient undergoing strengthening exercises. Case management arranging SNF transfer. No fever chills shortness of breath. 04/27 -patient doing well. No overnight events. No concerns per staff. No fever chills or shortness of breath. Diuresing well. Additional 2700 cc negative. Bicarbonate at 42 with contraction alkalosis on Diamox. Creatinine 1.8. Ongoing physical therapy. Nephrology on board. 04/28-patient doing better. Ongoing diuresis. No dyspnea/chest pain. Ongoing physical therapy. Continues to be bedridden due to morbid obesity. Anticipate SNF transfer. Case management and coordinating. Creatinine 1.9. Bicarbonate 44 on twice-daily Diamox. April 29-patient doing well. No overnight events. Awaiting SNF transfer. Additional 2000 cc net negative. Bicarbonate 45. On Diamox for contraction alkalosis. Creatinine 1.7. Ongoing physical therapy. No concerns per staff 04/30-patient doing well. No overnight events. Diuresis additional 2400 cc. On combination diuretics. Electrolytes stable. Ongoing physical therapy. Case management coordinating discharge planning. Likely likely stay inpatient through the weekend until placement 05/01-patient doing well. No overnight events. No concerns per staff. No fever chills diuresing well. Only 6/metolazone/acetazolamide. Proteinuria currently being managed by nephrology. Electrophoresis/free light chains ordered per nephrology. Case management arranging SNF transfer. Anticipate additional 48 hours until placement can be arranged. 05/02-patient resting comfortably. No overnight events. Additional 2000 cc net negative fluid status. Creatinine around 2. Persistent alkalosis with bicarbonate 43. On twice a day Diamox. Still awaiting SNF placement. Significant excoriation bilateral dependent sacral gluteal area, on frequent turning/repositioning to avoid decubiti. Ongoing physical therapy 05/03 Pt seen examined, no acute overnight issues, tolerating po diet well, neg 28L since admission, pt labs are stable, on IV acetazolamide, bumex and metolozone. Will d/c the IV acetazolamide and see how his bicarb trends No safe discharge plan yet. Working with case management for discharge planning. 05/04 pt seen examined, no acute issue tolerating po well neg 2L since yesterday bicarb stable off acetazolamide awating xfer, cret 1.7, improved from before. 05/05 Pt seen examined no acute overnight events, he is neg 4 L yesterday, total of neg 34L since admission no new complaints he did get out of bed to chair today with the help of 3 people, not strong enough to do by self, some knee pain after the transfer awaiting social media designer to find place for the patient. 05/06 Pt seen examined, no acute issues INR 1.7 pt has no new complaints or concerns bicart is 41 vbg shows ph 7.41 continue present treatment plan for d/c to snf on wednesday, it seems the rehab and pts insurance has worked out an payment arrangement Pt needs bariatric bed aggresive pt, twice daily, ot twice daily to get him back on his feet 05/07 Pt seen examined, no acute overnight events, doing well neg 40L since admission awaiting placement on tuesday 05/08 Pt seen examined, in bed comfortable tolerating po well no acute complaints of issues diuresing well creat down to 1.5, bicarb 41 awaiting placement on wednesday 05/09 still awaiting clearnce from insurance company no changes from yesterday pt continuing to diurese well Case management informed pt should be covered for eliquis inr sub therapeutic d/c coumadin and start on eliquis. 05/10 pt seen examined, labs reviewed bicarb 39, creat up to 1.8, pt urine output is good, eliquis started, did not sleep well,pt feels its secondary to eliquis, I am not sure if eliquis should have meaningful WOOL SORTER effects will monitor for now. It seems the deal with insurance company and SNF fell through and the patient still is waiting for placement. 05/11 Pt seen examined,[place] [id number] since admission awaiting placement. 05/12 Patient seen examined, no acute overnight events, [place] [id number] neg edema much better, cut back on the dose of diuretics to 1mg bid of bumex, continue metolozone relax some fluid restriction to 1500ml/24 hrs Extended care conference held, plan to get patient home when we are able to achieve the necessary equipment/ and ensure that he is able to do transfers at home, Case management to recheck if Rehab [facility] if an option. 05/13/2018, assume care from Dr. Alvarenga Long discussion with patient, explaining his best interest is to be in an exercise regimen environment for weight loss and strengthening, along with dietitian/onion farmer crafting portion-control, fja-dja-tru-calorie with high fiber diet. Extended care conference with Jewel [employer]inder-social work, awaiting Rehabilitation [facility] ([place]), and potential rehabilitation facility at [place]. Continue PT OT rehabilitation while pending on the above applications, attempt to have a low-fat low-calorie diet with exercise regimen to achieve weight loss and strengthening. Continue on Bumex 1 mg twice a day, metolazone 2.5 mg daily, fluid restriction. - Constitutional Vitals: Vital Signs Temp Pulse Resp BP Pulse Ox 97.7 F 102 H 12 118/82 98 05/13/18 15:45 05/13/18 15:45 05/13/18 15:45 05/13/18 15:45 05/13/18 15:45 Period Temp Pulse Resp BP Sys/Andujar Pulse Ox Last 24 Hr 97.7 F-98.1 F 66-109 12-16 96-120/64-83 94-98 Intake and Output 05/13/18 05/13/18 05/13/18 05:59 13:59 21:59 Intake Total 80 / 80 370 / 370 250 / 250 Output Total 850 / 850 875 / 875 400 / 400 Balance -770 / -770 -505 / -505 -150 / -150 Intake & Output: Intake & Output 05/13/18 05/13/18 05/13/18 05:59 13:59 21:59 Intake Total 80 / 80 370 / 370 250 / 250 Output Total 850 / 850 875 / 875 400 / 400 Balance -770 / -770 -505 / -505 -150 / -150 Intake: Oral 250 / 250 GI Tube Flush 80 / 80 370 / 370 Output: Void Amount 850 / 850 875 / 875 400 / 400 Other: Meal Lunch Percent of Meal Consumed 75% Feeding Ability Independent # Voids 1 General appearance: cooperative, morbidly obese - Eye Eye exam: Present: EOMI, PERRL Pupils: Present: normal accommodation - ENT ENT exam: Present: mucous membranes moist - Neck Additional comments: Supple, thick neck habitus - Respiratory Respiratory exam: Present: normal respiratory exam, CTAB - Cardiovascular Cardiovascular exam: Present: RRR, +S1, +S2 - GI/Abdominal GI/Abdominal exam: Present: soft, distended Additional comments: Morbidly obese, central obesity - Neurological Exam Neurological exam: Present: altered, CN II-XII intact, oriented X3 Additional comments: Limited exam due to morbid obese habitus - Psychiatric Psychiatric exam: Present: normal affect, normal mood - Skin Skin exam: Present: dry, normal color Medical - PN: Obj Da - Labs CBC & Chem 7: 05/18/18 06:38 05/18/18 06:38 Labs: Abnormal Lab Results 05/12/18 05/12/18 04:09 04:09 RBC 3.14 L Hgb 10.6 L Hct 31.4 L RDW 15.0 H Eos % (Auto) 9.3 H Lymph # (Auto) 1.2 L Chloride 89 L Carbon Dioxide 36 H BUN 54 H Creatinine 1.6 H Total Bilirubin 1.5 H Alkaline Phosphatase 131 H Total Protein 8.7 H Globulin 5.4 H Albumin/Globulin Ratio 0.6 L Meds: Medications Acetaminophen (Tylenol) 650 mg PO Q6HP PRN PRN Reason: PAIN/FEVER > 101 Hydrocodone Bitart/Acetaminophen ([place] 10/325mg) 2 tab PO Q6HP PRN PRN Reason: Pain Last Admin: 05/13/18 15:27 Dose: 2 tab Bumetanide (Bumex) 2 mg PO BIDD [facility] Last Admin: 05/13/18 08:54 Dose: 2 mg Digoxin (Lanoxin) 125 mcg PO Q48H [facility] Last Admin: 05/13/18 14:24 Dose: 125 mcg Docusate Sodium (Colace) 100 mg PO BID [facility] Last Admin: 05/13/18 08:45 Dose: 100 mg Heparin Sodium (Porcine) (Heparin Flush) 2 ml IV Q12 [facility] Last Admin: 05/13/18 08:52 Dose: 2 ml Metolazone (Zaroxolyn) 2.5 mg PO DAILY@0730 [facility] Last Admin: 05/13/18 07:06 Dose: 2.5 mg Naloxone HCl (Narcan) 0.1 mg IV Q2MIN PRN PRN Reason: Opiate Reversal Ondansetron HCl (Zofran Odt) 4 mg SL Q4HP PRN PRN Reason: Nausea And Vomiting Last Admin: 05/12/18 17:28 Dose: 4 mg Polyethylene Glycol (Miralax) 17 gm PO DAILY PRN PRN Reason: Constipation Last Admin: 05/13/18 15:27 Dose: 17 gm Potassium Chloride (Kdur) 20 meq PO QAMCC [facility] Last Admin: 05/13/18 08:54 Dose: 20 meq Senna (Senokot) 1 tab PO BID [facility] Last Admin: 05/13/18 08:46 Dose: 1 tab Sodium Chloride (Saline Flush) 10 ml IV UD PRN PRN Reason: FLUSH Last Admin: 05/12/18 20:23 Dose: 10 ml Sodium Chloride (Saline Flush) 10 ml IV Q12 [facility] Last Admin: 05/13/18 08:53 Dose: 10 ml Vitamin D (Vitamin D3) 2,000 unit PO DAILY [facility] Last Admin: 05/13/18 08:46 Dose: 2,000 unit - ABG Interpretation ABG results: 05/06/18 08:16 ABG Methemoglobin 0.3 L VBG pH 7.41 VBG pCO2 68.4 H* VBG pO2 57 H VBG HCO3 41.9 H* VBG Total CO2 44.0 H* VBG O2 Saturation 85.2 H VBG Base Excess 14.8 H Medical - PN: A/P - Time Spent With Patient Total time spent is greater than 50% in coordination of care (as documented) at patient's floor/unit and/or counseling patient: 25 - 35 minutes (complex case, with very challenging problems and issues, especially health insurance coverage and placement.) - Narrative A/P Narrative: Anasarca - much improved. cor pulmonale- continue changes: bumex from 2mg bid to 1mg bid, metolazone 2.5mg daily and potassium chloride 20mg daily. Morbid obesity- aggressive intervention, pt unable to ambulate stuck in bed, bid pt and ot to help get pt back to baseline. PT notes they do not have all the equipment here to help further the patients PT Goals, he is doing all the exercises he can in bed. We need more equipment to mobilize the patient. Discussed & encourage pt to concentrate & narrow in "core-strengthening" muscle building exercise. Diet changes with trimming fat, increasing fiber, balance protein contents for muscle-building & strengthening. Obstructive sleep apnea- cpap at night Acute on Chronic renal failure- creat is 1.6, bun 54, bicarb 36, K 3.6 Atrial fibrillation, s/p pacemaker-rate controlled with digoxin, off beta blockers, digoxin every other day Bed bound status- aggressive ot/pt rehab, core-building & strengthening diet & exercises Decubitus ulcer- woundcare are following HTN- bp stable off anti hypertensives Metabolic alkalosis, combination of doug, co2 retention and diuresis, ph 7.41 on vbg today, off diamox,. DVT on eliquis now, off coumadin. Full code Awaiting placement, continue with rehab while here Medical - PN: Qual - VTE Deep Vein Thrombosis/Pulmonary Embolism Present on Admission: No
[2018-05-13] MEDS: 0.9 % SODIUM CHLORIDE 10 ML SYRINGE IV PRN (20:08)
[2018-05-14] MEDS: VITAMIN D3 1,000 UNIT TABLET PO SCH (08:23)
[2018-05-14] MEDS: METOLAZONE 2.5 MG TABLET PO SCH (08:30)
[2018-05-14] MEDS: HYDROcodone/APAP 10/325MG TABLET PO PRN ×2 (08:31→15:04)
[2018-05-14] MEDS: POTASSIUM CHLORIDE 20 MEQ TABLET PO SCH (08:31)
[2018-05-14] MEDS: APIXABAN 2.5 MG TABLET PO SCH ×2 (08:35→20:18)
[2018-05-14] MEDS: SENNOSIDES 1 TABLET PO SCH ×2 (08:35→20:18)
[2018-05-14] MEDS: DOCUSATE SODIUM 100 MG CAPSULE PO SCH ×2 (08:35→20:18)
[2018-05-14] MEDS: BUMETANIDE 1 MG TABLET PO SCH ×2 (08:35→15:03)
[2018-05-14] MEDS: 0.9 % SODIUM CHLORIDE 10 ML SYRINGE IV SCH ×2 (08:36→20:20)
--- NOTE | 2018-05-14 11:49 | Internal Med Progress Note ---
Medical - PN: Subj Patient information: Note initiated : 05/14/18 at 11:49 am Service Date, if different from initiated Date: [] Patient: Branden Espinosa 57 y/o M admitted on 04/20/18 for Worsening Renal Failure. Chief Complaint: [] Interval history: Mr. Espinosa is a 57 year old Male with history of morbid obesity, bedbound, severe pulmonary hypertension, congestive heart failure, chronic kidney disease atrial fibrillation. The patient presents to the hospital for worsening shortness of breath and increased edema in his body. The patient was discharged from this facility I believe on 20 March. He was transferred to [facility] for placement of a pacemaker. His admission in March was also for increased swelling, worsening renal function and was treated as congestive heart failure. At that point in time the patient was supratherapeutic and his INR as well as supratherapeutic and his digoxin level. Digoxin was held. The patient eventually was transferred to a higher center for placement of a pacemaker because of significant cardiac pauses. He underwent the pacemaker placement and was discharged from the facility. According to the patient since his discharge from the tertiary facility the patient has been having increased swelling in his lower extremities. This has been progressively getting worse, this has been accompanied by shortness of breath. He denies any other acute complaints or concerns. He denies taking in too much fluid he is watching his salt intake and is not taking any NSAIDs. The patient denies any chest pain denies any dizziness he does have intermittent changes in vision. The patient was being followed by nephrology in the outpatient, his dose of diuretics were being changed however despite this the patient's edema kept getting worse and therefore the patient was asked to come to the emergency room for evaluation. In the ER the patient was noted to have worsening renal failure, elevated bnp, significant edema, cxr was clear, showed resolving pna, ekg showed poor voltate , afib, 04/21 Patient seen and examined, overnight was not able to sleep well, there was some malfunction in the bariatric bed which kept beeping. Patient tired this morning. He has extensive erythema on his back possible fungal rash. Patient has not had a bowel movement for the last few days wanting a stool softener. He notes his shortness of breath is somewhat better but still not able to lie flat, denies any chest pain nausea vomiting. Appreciate nephrology input. Patient remains on IV Lasix, negative balance since yesterday,-1550 04/22 Pt seen examined, tired today, did not sleep well, bp on the lower end of normal , neg 1500 yesterday Pt has no other complaints. had bm this after noon. nephrology following. labs stable. 04/23 Pt seen examined, slept well last night, denies any acute complaints, noted some chest discomfort yesterday, no chest tightness or pressure, just a flicker, Pt is already anticoagulated with coumadin and INR is therapeutic The patient Creat is trending down, creat is 2.2, He is diuresing well, Neg 5L since admission Plan to use chlorothiazide this afternoon, and then followed by lasix to see if we can improve diuresis 04/24 Pt seen examined, no acute overnight events, [place] [id number] since admission, still has significant edema Start on metolozone 5mg daily, continue IV lasix 80 bid add acetazolamide one dose today for worsening metabolic alkalosis. BP stable HR stable Dig level 1.2-1.3, pt has pacemaker, intermittently pacing on tele inr therapeutic PT feels cpap is not giving enough pressure, even at 14mmhg, have spoken with RT to look into the device. 04/24 [place] [id number] since admission, pt feels ok, still has significant dependent edema, I feel we can switch him to oral meds and see if he continues to diurese on same d/c iv lasix, start on po bumex, and metolozone 5mg before bumex and monitor urine output The patient bed was not zeroed in, and therefore the daily weights are not accurate, I am not using daily weight to monitor treatment at this time. 04/26-patient doing well. No overnight events. Over 1600 cc net negative in 24 hours. Lower dose of metolazone. Continue Diamox due to contraction alkalosis. Patient undergoing strengthening exercises. Case management arranging SNF transfer. No fever chills shortness of breath. 04/27 -patient doing well. No overnight events. No concerns per staff. No fever chills or shortness of breath. Diuresing well. Additional 2700 cc negative. Bicarbonate at 42 with contraction alkalosis on Diamox. Creatinine 1.8. Ongoing physical therapy. Nephrology on board. 04/28-patient doing better. Ongoing diuresis. No dyspnea/chest pain. Ongoing physical therapy. Continues to be bedridden due to morbid obesity. Anticipate SNF transfer. Case management and coordinating. Creatinine 1.9. Bicarbonate 44 on twice-daily Diamox. April 29-patient doing well. No overnight events. Awaiting SNF transfer. Additional 2000 cc net negative. Bicarbonate 45. On Diamox for contraction alkalosis. Creatinine 1.7. Ongoing physical therapy. No concerns per staff 04/30-patient doing well. No overnight events. Diuresis additional 2400 cc. On combination diuretics. Electrolytes stable. Ongoing physical therapy. Case management coordinating discharge planning. Likely likely stay inpatient through the weekend until placement 05/01-patient doing well. No overnight events. No concerns per staff. No fever chills diuresing well. Only 6/metolazone/acetazolamide. Proteinuria currently being managed by nephrology. Electrophoresis/free light chains ordered per nephrology. Case management arranging SNF transfer. Anticipate additional 48 hours until placement can be arranged. 05/02-patient resting comfortably. No overnight events. Additional 2000 cc net negative fluid status. Creatinine around 2. Persistent alkalosis with bicarbonate 43. On twice a day Diamox. Still awaiting SNF placement. Significant excoriation bilateral dependent sacral gluteal area, on frequent turning/repositioning to avoid decubiti. Ongoing physical therapy 05/03 Pt seen examined, no acute overnight issues, tolerating po diet well, neg 28L since admission, pt labs are stable, on IV acetazolamide, bumex and metolozone. Will d/c the IV acetazolamide and see how his bicarb trends No safe discharge plan yet. Working with case management for discharge planning. 05/04 pt seen examined, no acute issue tolerating po well neg 2L since yesterday bicarb stable off acetazolamide awating xfer, cret 1.7, improved from before. 05/05 Pt seen examined no acute overnight events, he is neg 4 L yesterday, total of neg 34L since admission no new complaints he did get out of bed to chair today with the help of 3 people, not strong enough to do by self, some knee pain after the transfer awaiting web content & social media manager to find place for the patient. 05/06 Pt seen examined, no acute issues INR 1.7 pt has no new complaints or concerns bicart is 41 vbg shows ph 7.41 continue present treatment plan for d/c to snf on wednesday, it seems the rehab and pts insurance has worked out an payment arrangement Pt needs bariatric bed aggresive pt, twice daily, ot twice daily to get him back on his feet 05/07 Pt seen examined, no acute overnight events, doing well neg 40L since admission awaiting placement on tuesday 05/08 Pt seen examined, in bed comfortable tolerating po well no acute complaints of issues diuresing well creat down to 1.5, bicarb 41 awaiting placement on wednesday 05/09 still awaiting clearnce from insurance company no changes from yesterday pt continuing to diurese well Case management informed pt should be covered for eliquis inr sub therapeutic d/c coumadin and start on eliquis. 05/10 pt seen examined, labs reviewed bicarb 39, creat up to 1.8, pt urine output is good, eliquis started, did not sleep well,pt feels its secondary to eliquis, I am not sure if eliquis should have meaningful VALUE ENGINEER effects will monitor for now. It seems the deal with insurance company and SNF fell through and the patient still is waiting for placement. 05/11 Pt seen examined,[place] [id number] since admission awaiting placement. 05/12 Patient seen examined, no acute overnight events, [place] [id number] neg edema much better, cut back on the dose of diuretics to 1mg bid of bumex, continue metolozone relax some fluid restriction to 1500ml/24 hrs Extended care conference held, plan to get patient home when we are able to achieve the necessary equipment/ and ensure that he is able to do transfers at home, Case management to recheck if Rehab [facility] if an option. 05/13/2018, assume care from Dr. Alvarenga Long discussion with patient, explaining his best interest is to be in an exercise regimen environment for weight loss and strengthening, along with dietitian/chiropractic neurologist crafting portion-control, [id number]-calorie with high fiber diet. Extended care conference with Library [employer]ials Assistant-social work, awaiting Rehabilitation [facility] ([place]), and potential rehabilitation facility at [place]. Continue PT OT rehabilitation while pending on the above applications, attempt to have a low-fat low-calorie diet with exercise regimen to achieve weight loss and strengthening. Continue on Bumex 1 mg twice a day, metolazone 2.5 mg daily, fluid restriction. 05/14/2018 Discussed that with him in great length and explained the importance and essence of core muscle exercise and fat-weight loss, to improve his physical strength. I also encouraged him to continue and increase frequency of these core strength exercises in bed. He understood and is energized to do them General appearance: cooperative, morbidly obese Eye exam: Present: EOMI, PERRL Pupils: Present: normal accommodation ENT exam: Present: mucous membranes moist Neck: Supple, thick neck habitus Respiratory exam: Present: normal respiratory exam, CTAB Cardiovascular exam: Present: RRR, +S1, +S2 GI/Abdominal exam: Present: soft, distended, Morbidly obese, central obesity Extremities: obese legs-feet, R. LE chronic pressure ulcer healing, with good granulation. Neurological exam: Present: altered, CN II-XII intact, oriented X3, Limited exam due to morbid obese habitus Psychiatric exam: Present: normal affect, normal mood Skin exam: Present: dry, normal color - Constitutional Vitals: Vital Signs Temp Pulse Resp BP Pulse Ox 96.9 F L 99 H 18 114/76 93 05/14/18 07:24 05/14/18 07:24 05/14/18 07:25 05/14/18 07:24 05/14/18 07:25 Period Temp Pulse Resp BP Sys/Andujar Pulse Ox Last 24 Hr 96.9 F-98.7 F 64-102 12-18 103-118/65-82 93-98 Intake and Output 05/13/18 05/14/18 05/14/18 21:59 05:59 13:59 Intake Total 593 / 593 180 / 180 Output Total 600 / 600 475 / 475 1400 / 1400 Balance -7 / -7 -475 / -475 -1220 / -1220 Weight 348 lb 9.6 oz 348 lb 9.6 oz Patient Weight 05/15/18 05:59 Weight 348 lb 9.6 oz Intake & Output: Intake & Output 05/13/18 05/14/18 05/14/18 21:59 05:59 13:59 Intake Total 593 / 593 180 / 180 Output Total 600 / 600 475 / 475 1400 / 1400 Balance -7 / -7 -475 / -475 -1220 / -1220 Weight 348 lb 9.6 oz 348 lb 9.6 oz Intake: Oral 413 / 413 180 / 180 GI Tube Flush 180 / 180 Output: Void Amount 600 / 600 475 / 475 1400 / 1400 Other: Meal Breakfast Percent of Meal Consumed 100% Feeding Ability Independent # Voids 1 1 Medical - PN: Obj Da - Labs CBC & Chem 7: 05/18/18 06:38 05/18/18 06:38 Labs: Abnormal Lab Results 05/12/18 05/12/18 04:09 04:09 RBC 3.14 L Hgb 10.6 L Hct 31.4 L RDW 15.0 H Eos % (Auto) 9.3 H Lymph # (Auto) 1.2 L Chloride 89 L Carbon Dioxide 36 H BUN 54 H Creatinine 1.6 H Total Bilirubin 1.5 H Alkaline Phosphatase 131 H Total Protein 8.7 H Globulin 5.4 H Albumin/Globulin Ratio 0.6 L Meds: Medications Acetaminophen (Tylenol) 650 mg PO Q6HP PRN PRN Reason: PAIN/FEVER > 101 Hydrocodone Bitart/Acetaminophen ([place] 10/325mg) 2 tab PO Q6HP PRN PRN Reason: Pain Last Admin: 05/14/18 08:31 Dose: 2 tab Bumetanide (Bumex) 2 mg PO BIDD [facility] Last Admin: 05/13/18 17:51 Dose: 2 mg Digoxin (Lanoxin) 125 mcg PO Q48H [facility] Last Admin: 05/13/18 14:24 Dose: 125 mcg Docusate Sodium (Colace) 100 mg PO BID [facility] Last Admin: 05/14/18 08:35 Dose: 100 mg Heparin Sodium (Porcine) (Heparin Flush) 2 ml IV Q12 [facility] Last Admin: 05/14/18 08:36 Dose: 2 ml Metolazone (Zaroxolyn) 2.5 mg PO DAILY@0730 [facility] Last Admin: 05/14/18 08:30 Dose: 2.5 mg Naloxone HCl (Narcan) 0.1 mg IV Q2MIN PRN PRN Reason: Opiate Reversal Ondansetron HCl (Zofran Odt) 4 mg SL Q4HP PRN PRN Reason: Nausea And Vomiting Last Admin: 05/12/18 17:28 Dose: 4 mg Polyethylene Glycol (Miralax) 17 gm PO DAILY PRN PRN Reason: Constipation Last Admin: 05/13/18 15:27 Dose: 17 gm Potassium Chloride (Kdur) 20 meq PO QAC [facility] Last Admin: 05/14/18 08:31 Dose: 20 meq Senna (Senokot) 1 tab PO BID [facility] Last Admin: 05/14/18 08:35 Dose: 1 tab Sodium Chloride (Saline Flush) 10 ml IV UD PRN PRN Reason: FLUSH Last Admin: 05/13/18 20:08 Dose: 10 ml Sodium Chloride (Saline Flush) 10 ml IV Q12 [facility] Last Admin: 05/14/18 08:36 Dose: 10 ml Vitamin D (Vitamin D3) 2,000 unit PO DAILY [facility] Last Admin: 05/13/18 08:46 Dose: 2,000 unit - ABG Interpretation ABG results: 05/06/18 08:16 ABG Methemoglobin 0.3 L VBG pH 7.41 VBG pCO2 68.4 H* VBG pO2 57 H VBG HCO3 41.9 H* VBG Total CO2 44.0 H* VBG O2 Saturation 85.2 H VBG Base Excess 14.8 H Medical - PN: A/P - Time Spent With Patient Total time spent is greater than 50% in coordination of care (as documented) at patient's floor/unit and/or counseling patient: 15 - 24 minutes - Narrative A/P Narrative: Anasarca - much improved. cor pulmonale- continue changes: bumex from 2mg bid to 1mg bid, metolazone 2.5mg daily and potassium chloride 20mg daily. Morbid obesity- aggressive intervention, pt unable to ambulate stuck in bed, bid pt and ot to help get pt back to baseline. PT notes they do not have all the equipment here to help further the patients PT Goals, he is doing all the exercises he can in bed. We need more equipment to mobilize the patient. Discussed & encourage pt to concentrate & narrow in "core-strengthening" muscle building exercise. Diet changes with trimming fat, increasing fiber, balance protein contents for muscle-building & strengthening. Obstructive sleep apnea- cpap at night Acute on Chronic renal failure- stable, 05/12/18 creat is 1.6, bun 54, bicarb 36, K 3.6, continue 1-2x CMP monitoring. Atrial fibrillation, s/p pacemaker-rate controlled with digoxin, off beta blockers, digoxin every other day Bed bound status- aggressive ot/pt rehab, core-building & strengthening diet & exercises Decubitus ulcer- woundcare are following HTN- bp stable off anti hypertensives Metabolic alkalosis, combination of doug, co2 retention and diuresis, stable, off diamox,. DVT prophylaxis: already on eliquis for A. Fib., off of coumadin. Full code Awaiting placement, continue with PT-OT rehab while awaiting here Medical - PN: Qual - VTE Deep Vein Thrombosis/Pulmonary Embolism Present on Admission: No
[2018-05-14] MEDS: 0.9 % SODIUM CHLORIDE 10 ML SYRINGE IV PRN (20:20)
[2018-05-15] MEDS: METOLAZONE 2.5 MG TABLET PO SCH (07:04)
[2018-05-15] MEDS: HYDROcodone/APAP 10/325MG TABLET PO PRN ×2 (07:06→13:21)
[2018-05-15] MEDS: BUMETANIDE 1 MG TABLET PO SCH ×2 (07:41→15:39)
[2018-05-15] MEDS: POTASSIUM CHLORIDE 20 MEQ TABLET PO SCH (07:41)
[2018-05-15] MEDS: APIXABAN 2.5 MG TABLET PO SCH ×2 (08:27→21:41)
[2018-05-15] MEDS: DOCUSATE SODIUM 100 MG CAPSULE PO SCH ×2 (08:27→21:41)
[2018-05-15] MEDS: SENNOSIDES 1 TABLET PO SCH ×2 (08:27→21:41)
[2018-05-15] MEDS: 0.9 % SODIUM CHLORIDE 10 ML SYRINGE IV SCH ×2 (08:28→21:41)
[2018-05-15] MEDS: VITAMIN D3 1,000 UNIT TABLET PO SCH (08:28)
--- NOTE | 2018-05-15 12:38 | Internal Med Progress Note ---
Medical - PN: Subj Patient information: Note initiated : 05/15/18 at 12:38 pm Service Date, if different from initiated Date: [] Patient: Branden Espinosa 57 y/o M admitted on 04/20/18 for Worsening Renal Failure. Chief Complaint: [] Interval history: Mr. Espinosa is a 57 year old Male with history of morbid obesity, bedbound, severe pulmonary hypertension, congestive heart failure, chronic kidney disease atrial fibrillation. The patient presents to the hospital for worsening shortness of breath and increased edema in his body. The patient was discharged from this facility I believe on 20 March. He was transferred to [facility] for placement of a pacemaker. His admission in March was also for increased swelling, worsening renal function and was treated as congestive heart failure. At that point in time the patient was supratherapeutic and his INR as well as supratherapeutic and his digoxin level. Digoxin was held. The patient eventually was transferred to a higher center for placement of a pacemaker because of significant cardiac pauses. He underwent the pacemaker placement and was discharged from the facility. According to the patient since his discharge from the tertiary facility the patient has been having increased swelling in his lower extremities. This has been progressively getting worse, this has been accompanied by shortness of breath. He denies any other acute complaints or concerns. He denies taking in too much fluid he is watching his salt intake and is not taking any NSAIDs. The patient denies any chest pain denies any dizziness he does have intermittent changes in vision. The patient was being followed by nephrology in the outpatient, his dose of diuretics were being changed however despite this the patient's edema kept getting worse and therefore the patient was asked to come to the emergency room for evaluation. In the ER the patient was noted to have worsening renal failure, elevated bnp, significant edema, cxr was clear, showed resolving pna, ekg showed poor voltate , afib, 04/21 Patient seen and examined, overnight was not able to sleep well, there was some malfunction in the bariatric bed which kept beeping. Patient tired this morning. He has extensive erythema on his back possible fungal rash. Patient has not had a bowel movement for the last few days wanting a stool softener. He notes his shortness of breath is somewhat better but still not able to lie flat, denies any chest pain nausea vomiting. Appreciate nephrology input. Patient remains on IV Lasix, negative balance since yesterday,-1550 04/22 Pt seen examined, tired today, did not sleep well, bp on the lower end of normal , neg 1500 yesterday Pt has no other complaints. had bm this after noon. nephrology following. labs stable. 04/23 Pt seen examined, slept well last night, denies any acute complaints, noted some chest discomfort yesterday, no chest tightness or pressure, just a flicker, Pt is already anticoagulated with coumadin and INR is therapeutic The patient Creat is trending down, creat is 2.2, He is diuresing well, Neg 5L since admission Plan to use chlorothiazide this afternoon, and then followed by lasix to see if we can improve diuresis 04/24 Pt seen examined, no acute overnight events, [place]ing [place] [id number] since admission, still has significant edema Start on metolozone 5mg daily, continue IV lasix 80 bid add acetazolamide one dose today for worsening metabolic alkalosis. BP stable HR stable Dig level 1.2-1.3, pt has pacemaker, intermittently pacing on tele inr therapeutic PT feels cpap is not giving enough pressure, even at 14mmhg, have spoken with RT to look into the device. 04/24 [place] [id number] since admission, pt feels ok, still has significant dependent edema, I feel we can switch him to oral meds and see if he continues to diurese on same d/c iv lasix, start on po bumex, and metolozone 5mg before bumex and monitor urine output The patient bed was not zeroed in, and therefore the daily weights are not accurate, I am not using daily weight to monitor treatment at this time. 04/26-patient doing well. No overnight events. Over 1600 cc net negative in 24 hours. Lower dose of metolazone. Continue Diamox due to contraction alkalosis. Patient undergoing strengthening exercises. Case management arranging SNF transfer. No fever chills shortness of breath. 04/27 -patient doing well. No overnight events. No concerns per staff. No fever chills or shortness of breath. Diuresing well. Additional 2700 cc negative. Bicarbonate at 42 with contraction alkalosis on Diamox. Creatinine 1.8. Ongoing physical therapy. Nephrology on board. 04/28-patient doing better. Ongoing diuresis. No dyspnea/chest pain. Ongoing physical therapy. Continues to be bedridden due to morbid obesity. Anticipate SNF transfer. Case management and coordinating. Creatinine 1.9. Bicarbonate 44 on twice-daily Diamox. April 29-patient doing well. No overnight events. Awaiting SNF transfer. Additional 2000 cc net negative. Bicarbonate 45. On Diamox for contraction alkalosis. Creatinine 1.7. Ongoing physical therapy. No concerns per staff 04/30-patient doing well. No overnight events. Diuresis additional 2400 cc. On combination diuretics. Electrolytes stable. Ongoing physical therapy. Case management coordinating discharge planning. Likely likely stay inpatient through the weekend until placement 05/01-patient doing well. No overnight events. No concerns per staff. No fever chills diuresing well. Only 6/metolazone/acetazolamide. Proteinuria currently being managed by nephrology. Electrophoresis/free light chains ordered per nephrology. Case management arranging SNF transfer. Anticipate additional 48 hours until placement can be arranged. 05/02-patient resting comfortably. No overnight events. Additional 2000 cc net negative fluid status. Creatinine around 2. Persistent alkalosis with bicarbonate 43. On twice a day Diamox. Still awaiting SNF placement. Significant excoriation bilateral dependent sacral gluteal area, on frequent turning/repositioning to avoid decubiti. Ongoing physical therapy 05/03 Pt seen examined, no acute overnight issues, tolerating po diet well, neg 28L since admission, pt labs are stable, on IV acetazolamide, bumex and metolozone. Will d/c the IV acetazolamide and see how his bicarb trends No safe discharge plan yet. Working with case management for discharge planning. 05/04 pt seen examined, no acute issue tolerating po well neg 2L since yesterday bicarb stable off acetazolamide awating xfer, cret 1.7, improved from before. 05/05 Pt seen examined no acute overnight events, he is neg 4 L yesterday, total of neg 34L since admission no new complaints he did get out of bed to chair today with the help of 3 people, not strong enough to do by self, some knee pain after the transfer awaiting mental health social worker to find place for the patient. 05/06 Pt seen examined, no acute issues INR 1.7 pt has no new complaints or concerns bicart is 41 vbg shows ph 7.41 continue present treatment plan for d/c to snf on wednesday, it seems the rehab and pts insurance has worked out an payment arrangement Pt needs bariatric bed aggresive pt, twice daily, ot twice daily to get him back on his feet 05/07 Pt seen examined, no acute overnight events, doing well neg 40L since admission awaiting placement on tuesday 05/08 Pt seen examined, in bed comfortable tolerating po well no acute complaints of issues diuresing well creat down to 1.5, bicarb 41 awaiting placement on wednesday 05/09 still awaiting clearnce from insurance company no changes from yesterday pt continuing to diurese well Case management informed pt should be covered for eliquis inr sub therapeutic d/c coumadin and start on eliquis. 05/10 pt seen examined, labs reviewed bicarb 39, creat up to 1.8, pt urine output is good, eliquis started, did not sleep well,pt feels its secondary to eliquis, I am not sure if eliquis should have meaningful TICKETER effects will monitor for now. It seems the deal with insurance company and SNF fell through and the patient still is waiting for placement. 05/11 Pt seen examined,[place] [id number] since admission awaiting placement. 05/12 Patient seen examined, no acute overnight events, [place] [id number] neg edema much better, cut back on the dose of diuretics to 1mg bid of bumex, continue metolozone relax some fluid restriction to 1500ml/24 hrs Extended care conference held, plan to get patient home when we are able to achieve the necessary equipment/ and ensure that he is able to do transfers at home, Case management to recheck if Rehab [facility] if an option. 05/13/2018, assume care from Dr. Alvarenga Long discussion with patient, explaining his best interest is to be in an exercise regimen environment for weight loss and strengthening, along with dietitian/green belt crafting portion-control, [id number]-calorie with high fiber diet. Extended care conference with [employer]-social work, awaiting Rehabilitation [facility] ([place]), and potential rehabilitation facility at [place]. Continue PT OT rehabilitation while pending on the above applications, attempt to have a low-fat low-calorie diet with exercise regimen to achieve weight loss and strengthening. Continue on Bumex 1 mg twice a day, metolazone 2.5 mg daily, fluid restriction. 05/14/2018 Discussed that with him in great length and explained the importance and essence of core muscle exercise and fat-weight loss, to improve his physical strength. I also encouraged him to continue and increase frequency of these core strength exercises in bed. He understood and is energized to do them. 05/15/2018 c/o constipation, no bowel move for several days, does have flatus, also c/o generalize ache, all over the body. Discussed & explained in great length & details, result of long-time body- health deconditioned, leading to aching sensation from increase lactic production from increase exercises/activities. Will add additional laxative- fibers for bowel moves. General appearance: cooperative, conversational, morbidly obese Eye exam: Present: EOMI, PERRL Pupils: Present: normal accommodation ENT exam: Present: mucous membranes slightly moist Neck: Supple, thick neck habitus Respiratory exam: Present: normal respiratory exam, CTAB Cardiovascular exam: Present: RRR, +S1, +S2 GI/Abdominal exam: Present: soft, distended, Morbidly obese, central obesity Extremities: obese legs-feet, R. LE chronic pressure ulcer healing, with good granulation. Neurological exam: Present: altered, CN II-XII intact, oriented X3, Limited exam due to morbid obese habitus Psychiatric exam: Present: normal affect, normal mood Skin exam: Present: dry, normal color - Constitutional Vitals: Vital Signs Temp Pulse Resp BP Pulse Ox 98.3 F 97 H 20 97/66 97 05/15/18 11:06 05/15/18 06:42 05/15/18 11:06 05/15/18 11:06 05/15/18 11:06 Period Temp Pulse Resp BP Sys/Andujar Pulse Ox Last 24 Hr 96.7 F-99 F 72-97 15-20 97-138/66-81 95-97 Intake and Output 05/14/18 05/15/18 05/15/18 21:59 05:59 13:59 Intake Total 450 / 450 345 / 345 Output Total 950 / 950 660 / 660 350 / 350 Balance -500 / -500 -315 / -315 -350 / -350 Weight 351 lb 3.2 oz Intake & Output: Intake & Output 05/14/18 05/15/18 05/15/18 21:59 05:59 13:59 Intake Total 450 / 450 345 / 345 Output Total 950 / 950 660 / 660 350 / 350 Balance -500 / -500 -315 / -315 -350 / -350 Weight 351 lb 3.2 oz Intake: Oral 270 / 270 165 / 165 GI Tube Flush 180 / 180 180 / 180 Output: Void Amount 950 / 950 660 / 660 350 / 350 # of times incontinent of urine 0 / 0 Other: Meal Dinner Percent of Meal Consumed 100% # Voids 1 1 Medical - PN: Obj Da - Labs CBC & Chem 7: 05/18/18 06:38 05/18/18 06:38 Meds: Medications Acetaminophen (Tylenol) 650 mg PO Q6HP PRN PRN Reason: PAIN/FEVER > 101 Hydrocodone Bitart/Acetaminophen ([place] 10/325mg) 2 tab PO Q6HP PRN PRN Reason: Pain Last Admin: 05/15/18 07:06 Dose: 2 tab Bumetanide (Bumex) 2 mg PO BIDD [facility] Last Admin: 05/15/18 07:41 Dose: 2 mg Digoxin (Lanoxin) 125 mcg PO Q48H [facility] Last Admin: 05/13/18 14:24 Dose: 125 mcg Docusate Sodium (Colace) 100 mg PO BID [facility] Last Admin: 05/15/18 08:27 Dose: 100 mg Heparin Sodium (Porcine) (Heparin Flush) 2 ml IV Q12 [facility] Last Admin: 05/15/18 08:28 Dose: 2 ml Metolazone (Zaroxolyn) 2.5 mg PO DAILY@0730 [facility] Last Admin: 05/15/18 07:04 Dose: 2.5 mg Naloxone HCl (Narcan) 0.1 mg IV Q2MIN PRN PRN Reason: Opiate Reversal Ondansetron HCl (Zofran Odt) 4 mg SL Q4HP PRN PRN Reason: Nausea And Vomiting Last Admin: 05/12/18 17:28 Dose: 4 mg Polyethylene Glycol (Miralax) 17 gm PO DAILY PRN PRN Reason: Constipation Last Admin: 05/13/18 15:27 Dose: 17 gm Potassium Chloride (Kdur) 20 meq PO [facility] Last Admin: 05/15/18 07:41 Dose: 20 meq Senna (Senokot) 1 tab PO BID [facility] Last Admin: 05/15/18 08:27 Dose: 1 tab Sodium Chloride (Saline Flush) 10 ml IV UD PRN PRN Reason: FLUSH Last Admin: 05/14/18 20:20 Dose: 10 ml Sodium Chloride (Saline Flush) 10 ml IV Q12 [facility] Last Admin: 05/15/18 08:28 Dose: 10 ml Vitamin D (Vitamin D3) 2,000 unit PO DAILY [facility] Last Admin: 05/15/18 08:28 Dose: 2,000 unit - ABG Interpretation ABG results: 05/06/18 08:16 ABG Methemoglobin 0.3 L VBG pH 7.41 VBG pCO2 68.4 H* VBG pO2 57 H VBG HCO3 41.9 H* VBG Total CO2 44.0 H* VBG O2 Saturation 85.2 H VBG Base Excess 14.8 H Medical - PN: A/P - Time Spent With Patient Total time spent is greater than 50% in coordination of care (as documented) at patient's floor/unit and/or counseling patient: 15 - 24 minutes - Narrative A/P Narrative: constipation - add additional fiber-laxative. Body ache - normal exercise physiology Anasarca - continue to improved, reinforce fluid restriction with diuretics. cor pulmonale- continue changes: bumex from 2mg bid to 1mg bid, metolazone 2.5mg daily and potassium chloride 20mg daily. Morbid obesity- aggressive intervention, pt unable to ambulate stuck in bed, bid pt and ot to help get pt back to baseline. PT notes they do not have all the equipment here to help further the patients PT Goals, he is doing all the exercises he can in bed. We need more equipment to mobilize the patient. Discussed & encourage pt to concentrate & narrow in "core-strengthening" muscle building exercise. Diet changes with trimming fat, increasing fiber, balance protein contents for muscle-building & strengthening. Obstructive sleep apnea- cpap at night Acute on Chronic renal failure- stable, 05/12/18 creat is 1.6, bun 54, bicarb 36, K 3.6, continue 1-2x CMP monitoring. Atrial fibrillation, s/p pacemaker-rate controlled with digoxin, off beta blockers, digoxin every other day Bed bound status- aggressive ot/pt rehab, core-building & strengthening diet & exercises Decubitus ulcer- woundcare are following HTN- bp stable off anti hypertensives Metabolic alkalosis, combination of doug, co2 retention and diuresis, stable, off diamox,. DVT prophylaxis: already on eliquis for A. Fib., off of coumadin. Full code Awaiting placement, continue with PT-OT rehab while awaiting here Medical - PN: Qual - VTE Deep Vein Thrombosis/Pulmonary Embolism Present on Admission: No
[2018-05-15] MEDS: POLYETHYLENE GLYCOL 3350 17 GM PACKET PO PRN (13:21)
[2018-05-15] MEDS: DIGOXIN 125 MCG TABLET PO SCH (13:21)
[2018-05-15] MEDS ORDERED: SENNOSIDES 1 TABLET PO ONE (13:34)
[2018-05-15] MEDS ORDERED: BISACODYL 10 MG SUPP.RECT PR PRN (18:19)
[2018-05-15] MEDS ORDERED: BISACODYL 10 MG SUPP.RECT PR ONE (18:34)
[2018-05-15] MEDS: 0.9 % SODIUM CHLORIDE 10 ML SYRINGE IV PRN (21:42)
[2018-05-16] MEDS: METOLAZONE 2.5 MG TABLET PO SCH (07:44)
[2018-05-16] MEDS: HYDROcodone/APAP 10/325MG TABLET PO PRN ×2 (07:49→14:46)
[2018-05-16] MEDS: POTASSIUM CHLORIDE 20 MEQ TABLET PO SCH (09:44)
[2018-05-16] MEDS: BUMETANIDE 1 MG TABLET PO SCH ×2 (09:44→17:12)
[2018-05-16] MEDS: APIXABAN 2.5 MG TABLET PO SCH ×2 (09:45→20:54)
[2018-05-16] MEDS: SENNOSIDES 1 TABLET PO SCH ×2 (09:45→20:54)
[2018-05-16] MEDS: DOCUSATE SODIUM 100 MG CAPSULE PO SCH ×2 (09:45→20:54)
[2018-05-16] MEDS: VITAMIN D3 1,000 UNIT TABLET PO SCH (09:45)
[2018-05-16] MEDS: 0.9 % SODIUM CHLORIDE 10 ML SYRINGE IV SCH ×2 (09:46→20:55)
--- NOTE | 2018-05-16 13:15 | Internal Med Progress Note ---
Medical - PN: Subj Patient information: Note initiated : 05/16/18 at 1:15 pm Service Date, if different from initiated Date: [] Patient: Branden Espinosa 57 y/o M admitted on 04/20/18 for Worsening Renal Failure. Chief Complaint: [] - Constitutional Vitals: Vital Signs Temp Pulse Resp BP Pulse Ox 98.4 F 79 20 118/78 91 05/16/18 11:32 05/16/18 04:00 05/16/18 11:32 05/16/18 11:32 05/16/18 11:32 Period Temp Pulse Resp BP Sys/Andujar Pulse Ox Last 24 Hr 97.6 F-98.5 F 79-96 12-22 110-136/77-83 3-97 Intake and Output 05/15/18 05/16/18 05/16/18 21:59 05:59 13:59 Intake Total 840 / 840 0 / 0 460 / 460 Output Total 575 / 575 625 / 625 800 / 800 Balance 265 / 265 -625 / -625 -340 / -340 Weight 342 lb 9.6 oz Intake & Output: Intake & Output 05/15/18 05/16/18 05/16/18 21:59 05:59 13:59 Intake Total 840 / 840 0 / 0 460 / 460 Output Total 575 / 575 625 / 625 800 / 800 Balance 265 / 265 -625 / -625 -340 / -340 Weight 342 lb 9.6 oz Intake: Oral 660 / 660 0 / 0 460 / 460 GI Tube Flush 180 / 180 Output: Void Amount 575 / 575 625 / 625 800 / 800 Other: Meal Breakfast Percent of Meal Consumed ice chips 100% Stool Size Large Stool Color Brown Stool Consistency Formed # Voids 1 # Bowel Movements 1 Medical - PN: Obj Da - Labs CBC & Chem 7: 05/12/18 04:09 05/12/18 04:09 Meds: Medications Acetaminophen (Tylenol) 650 mg PO Q6HP PRN PRN Reason: PAIN/FEVER > 101 Hydrocodone Bitart/Acetaminophen ([place] 10/325mg) 2 tab PO Q6HP PRN PRN Reason: Pain Last Admin: 05/16/18 07:49 Dose: 2 tab Bisacodyl (Dulcolax) 10 mg MA Q2-3DAYS PRN PRN Reason: Constipation Bumetanide (Bumex) 2 mg PO BIDD [facility] Last Admin: 05/16/18 09:44 Dose: 2 mg Digoxin (Lanoxin) 125 mcg PO Q48H [facility] Last Admin: 05/15/18 13:21 Dose: 125 mcg Docusate Sodium (Colace) 100 mg PO BID [facility] Last Admin: 05/16/18 09:45 Dose: 100 mg Heparin Sodium (Porcine) (Heparin Flush) 2 ml IV Q12 [facility] Last Admin: 05/16/18 09:45 Dose: 2 ml Metolazone (Zaroxolyn) 2.5 mg PO DAILY@0730 [facility] Last Admin: 05/16/18 07:44 Dose: 2.5 mg Naloxone HCl (Narcan) 0.1 mg IV Q2MIN PRN PRN Reason: Opiate Reversal Ondansetron HCl (Zofran Odt) 4 mg SL Q4HP PRN PRN Reason: Nausea And Vomiting Last Admin: 05/12/18 17:28 Dose: 4 mg Polyethylene Glycol (Miralax) 17 gm PO DAILY PRN PRN Reason: Constipation Last Admin: 05/15/18 13:21 Dose: 17 gm Potassium Chloride (Kdur) 20 meq PO Q[facility]CC [facility] Last Admin: 05/16/18 09:44 Dose: 20 meq Senna (Senokot) 2 tab PO BID [facility] Last Admin: 05/16/18 09:45 Dose: 2 tab Sodium Chloride (Saline Flush) 10 ml IV UD PRN PRN Reason: FLUSH Last Admin: 05/15/18 21:42 Dose: 10 ml Sodium Chloride (Saline Flush) 10 ml IV Q12 [facility] Last Admin: 05/16/18 09:46 Dose: 10 ml Vitamin D (Vitamin D3) 2,000 unit PO DAILY [facility] Last Admin: 05/16/18 09:45 Dose: 2,000 unit - ABG Interpretation ABG results: 05/06/18 08:16 ABG Methemoglobin 0.3 L VBG pH 7.41 VBG pCO2 68.4 H* VBG pO2 57 H VBG HCO3 41.9 H* VBG Total CO2 44.0 H* VBG O2 Saturation 85.2 H VBG Base Excess 14.8 H Medical - PN: A/P - Time Spent With Patient Total time spent is greater than 50% in coordination of care (as documented) at patient's floor/unit and/or counseling patient: Medical - PN: Qual - VTE Deep Vein Thrombosis/Pulmonary Embolism Present on Admission: No
[2018-05-17] MEDS: METOLAZONE 2.5 MG TABLET PO SCH (07:54)
[2018-05-17] MEDS: HYDROcodone/APAP 10/325MG TABLET PO PRN ×2 (07:55→14:00)
[2018-05-17] MEDS: POTASSIUM CHLORIDE 20 MEQ TABLET PO SCH (08:55)
[2018-05-17] MEDS: SENNOSIDES 1 TABLET PO SCH ×2 (08:56→20:39)
[2018-05-17] MEDS: APIXABAN 2.5 MG TABLET PO SCH ×2 (08:57→20:39)
[2018-05-17] MEDS: BUMETANIDE 1 MG TABLET PO SCH ×2 (08:58→15:42)
[2018-05-17] MEDS: DOCUSATE SODIUM 100 MG CAPSULE PO SCH ×2 (08:59→20:39)
[2018-05-17] MEDS: VITAMIN D3 1,000 UNIT TABLET PO SCH (08:59)
[2018-05-17] MEDS: 0.9 % SODIUM CHLORIDE 10 ML SYRINGE IV SCH ×2 (09:00→20:40)
--- NOTE | 2018-05-17 09:48 | Orthopedic Procedure Note ---
Date of procedure: Note initiated : 05/17/18 at 9:47 am Service Date, if different from initiated Date: [05/13/18] Pre-op diagnosis: Onychocryptosis left hallux Post-op diagnosis: same Procedure: Partial nail avulsion left hallux Anesthesia: local Surgeon: Eric Fay Pathology: none sent Condition: stable
[2018-05-17] MEDS: DIGOXIN 125 MCG TABLET PO SCH (13:58)
--- NOTE | 2018-05-17 23:27 | Internal Med Progress Note ---
Medical - PN: Subj Patient information: Note initiated : 05/17/18 at 11:26 pm Service Date, if different from initiated Date: [] Patient: Branden Espinosa 57 y/o M admitted on 04/20/18 for Worsening Renal Failure. Chief Complaint: [] Interval history: Mr. Espinosa is a 57 year old Male with history of morbid obesity, bedbound, severe pulmonary hypertension, congestive heart failure, chronic kidney disease atrial fibrillation. The patient presents to the hospital for worsening shortness of breath and increased edema in his body. The patient was discharged from this facility I believe on 20 March. He was transferred to [facility] for placement of a pacemaker. His admission in March was also for increased swelling, worsening renal function and was treated as congestive heart failure. At that point in time the patient was supratherapeutic and his INR as well as supratherapeutic and his digoxin level. Digoxin was held. The patient eventually was transferred to a higher center for placement of a pacemaker because of significant cardiac pauses. He underwent the pacemaker placement and was discharged from the facility. According to the patient since his discharge from the tertiary facility the patient has been having increased swelling in his lower extremities. This has been progressively getting worse, this has been accompanied by shortness of breath. He denies any other acute complaints or concerns. He denies taking in too much fluid he is watching his salt intake and is not taking any NSAIDs. The patient denies any chest pain denies any dizziness he does have intermittent changes in vision. The patient was being followed by nephrology in the outpatient, his dose of diuretics were being changed however despite this the patient's edema kept getting worse and therefore the patient was asked to come to the emergency room for evaluation. In the ER the patient was noted to have worsening renal failure, elevated bnp, significant edema, cxr was clear, showed resolving pna, ekg showed poor voltate , afib, 04/21 Patient seen and examined, overnight was not able to sleep well, there was some malfunction in the bariatric bed which kept beeping. Patient tired this morning. He has extensive erythema on his back possible fungal rash. Patient has not had a bowel movement for the last few days wanting a stool softener. He notes his shortness of breath is somewhat better but still not able to lie flat, denies any chest pain nausea vomiting. Appreciate nephrology input. Patient remains on IV Lasix, negative balance since yesterday,-1550 04/22 Pt seen examined, tired today, did not sleep well, bp on the lower end of normal , neg 1500 yesterday Pt has no other complaints. had bm this after noon. nephrology following. labs stable. 04/23 Pt seen examined, slept well last night, denies any acute complaints, noted some chest discomfort yesterday, no chest tightness or pressure, just a flicker, Pt is already anticoagulated with coumadin and INR is therapeutic The patient Creat is trending down, creat is 2.2, He is diuresing well, Neg 5L since admission Plan to use chlorothiazide this afternoon, and then followed by lasix to see if we can improve diuresis 04/24 Pt seen examined, no acute overnight events, [place] [id number] since admission, still has significant edema Start on metolozone 5mg daily, continue IV lasix 80 bid add acetazolamide one dose today for worsening metabolic alkalosis. BP stable HR stable Dig level 1.2-1.3, pt has pacemaker, intermittently pacing on tele inr therapeutic PT feels cpap is not giving enough pressure, even at 14mmhg, have spoken with RT to look into the device. 04/24 [place] [id number] since admission, pt feels ok, still has significant dependent edema, I feel we can switch him to oral meds and see if he continues to diurese on same d/c iv lasix, start on po bumex, and metolozone 5mg before bumex and monitor urine output The patient bed was not zeroed in, and therefore the daily weights are not accurate, I am not using daily weight to monitor treatment at this time. 04/26-patient doing well. No overnight events. Over 1600 cc net negative in 24 hours. Lower dose of metolazone. Continue Diamox due to contraction alkalosis. Patient undergoing strengthening exercises. Case management arranging SNF transfer. No fever chills shortness of breath. 04/27 -patient doing well. No overnight events. No concerns per staff. No fever chills or shortness of breath. Diuresing well. Additional 2700 cc negative. Bicarbonate at 42 with contraction alkalosis on Diamox. Creatinine 1.8. Ongoing physical therapy. Nephrology on board. 04/28-patient doing better. Ongoing diuresis. No dyspnea/chest pain. Ongoing physical therapy. Continues to be bedridden due to morbid obesity. Anticipate SNF transfer. Case management and coordinating. Creatinine 1.9. Bicarbonate 44 on twice-daily Diamox. April 29-patient doing well. No overnight events. Awaiting SNF transfer. Additional 2000 cc net negative. Bicarbonate 45. On Diamox for contraction alkalosis. Creatinine 1.7. Ongoing physical therapy. No concerns per staff 04/30-patient doing well. No overnight events. Diuresis additional 2400 cc. On combination diuretics. Electrolytes stable. Ongoing physical therapy. Case management coordinating discharge planning. Likely likely stay inpatient through the weekend until placement 05/01-patient doing well. No overnight events. No concerns per staff. No fever chills diuresing well. Only 6/metolazone/acetazolamide. Proteinuria currently being managed by nephrology. Electrophoresis/free light chains ordered per nephrology. Case management arranging SNF transfer. Anticipate additional 48 hours until placement can be arranged. 05/02-patient resting comfortably. No overnight events. Additional 2000 cc net negative fluid status. Creatinine around 2. Persistent alkalosis with bicarbonate 43. On twice a day Diamox. Still awaiting SNF placement. Significant excoriation bilateral dependent sacral gluteal area, on frequent turning/repositioning to avoid decubiti. Ongoing physical therapy 05/03 Pt seen examined, no acute overnight issues, tolerating po diet well, neg 28L since admission, pt labs are stable, on IV acetazolamide, bumex and metolozone. Will d/c the IV acetazolamide and see how his bicarb trends No safe discharge plan yet. Working with case management for discharge planning. 05/04 pt seen examined, no acute issue tolerating po well neg 2L since yesterday bicarb stable off acetazolamide awating xfer, cret 1.7, improved from before. 05/05 Pt seen examined no acute overnight events, he is neg 4 L yesterday, total of neg 34L since admission no new complaints he did get out of bed to chair today with the help of 3 people, not strong enough to do by self, some knee pain after the transfer awaiting health and social care teacher to find place for the patient. 05/06 Pt seen examined, no acute issues INR 1.7 pt has no new complaints or concerns bicart is 41 vbg shows ph 7.41 continue present treatment plan for d/c to snf on wednesday, it seems the rehab and pts insurance has worked out an payment arrangement Pt needs bariatric bed aggresive pt, twice daily, ot twice daily to get him back on his feet 05/07 Pt seen examined, no acute overnight events, doing well neg 40L since admission awaiting placement on tuesday 05/08 Pt seen examined, in bed comfortable tolerating po well no acute complaints of issues diuresing well creat down to 1.5, bicarb 41 awaiting placement on wednesday 05/09 still awaiting clearnce from insurance company no changes from yesterday pt continuing to diurese well Case management informed pt should be covered for eliquis inr sub therapeutic d/c coumadin and start on eliquis. 05/10 pt seen examined, labs reviewed bicarb 39, creat up to 1.8, pt urine output is good, eliquis started, did not sleep well,pt feels its secondary to eliquis, I am not sure if eliquis should have meaningful DATA MANAGEMENT SPECIALIST effects will monitor for now. It seems the deal with insurance company and SNF fell through and the patient still is waiting for placement. 05/11 Pt seen examined,[place] [id number] since admission awaiting placement. 05/12 Patient seen examined, no acute overnight events, [place] [id number] neg edema much better, cut back on the dose of diuretics to 1mg bid of bumex, continue metolozone relax some fluid restriction to 1500ml/24 hrs Extended care conference held, plan to get patient home when we are able to achieve the necessary equipment/ and ensure that he is able to do transfers at home, Case management to recheck if [facility]hab [facility] if an option. 05/13/2018, assume care from Dr. Alvarenga Long discussion with patient, explaining his best interest is to be in an exercise regimen environment for weight loss and strengthening, along with dietitian/chicken catcher crafting portion-control, fmg-fqm-grt-calorie with high fiber diet. Extended care conference with [employer] Agent-social work, awaiting Rehabilitation [facility] ([place]), and potential rehabilitation facility at [place]. Continue PT OT rehabilitation while pending on the above applications, attempt to have a low-fat low-calorie diet with exercise regimen to achieve weight loss and strengthening. Continue on Bumex 1 mg twice a day, metolazone 2.5 mg daily, fluid restriction. - Constitutional Vitals: Vital Signs Temp Pulse Resp BP Pulse Ox 97.3 F 108 H 16 107/68 94 05/17/18 20:00 05/17/18 20:00 05/17/18 20:00 05/17/18 20:00 05/17/18 20:00 Period Temp Pulse Resp BP Sys/Andujar Pulse Ox Last 24 Hr 97 F-97.9 F 76-116 14-18 107-133/68-83 92-95 Intake and Output 05/17/18 05/17/18 05/18/18 13:59 21:59 05:59 Intake Total 250 / 250 410 / 410 Output Total 675 / 675 1200 / 1200 Balance -425 / -425 -790 / -790 Weight 341 lb 1.6 oz Patient Weight 05/18/18 05:59 Weight 341 lb 1.6 oz Intake & Output: Intake & Output 05/17/18 05/17/18 05/18/18 13:59 21:59 05:59 Intake Total 250 / 250 410 / 410 Output Total 675 / 675 1200 / 1200 Balance -425 / -425 -790 / -790 Weight 341 lb 1.6 oz Intake: Oral 250 / 250 410 / 410 Output: Void Amount 675 / 675 1200 / 1200 Other: Meal Lunch Dinner Percent of Meal Consumed 100% 100% Feeding Ability Independent Independent Stool Size Large Stool Color Brown Stool Consistency Soft # Voids 1 # Bowel Movements 1 Medical - PN: Obj Da - Labs CBC & Chem 7: 05/12/18 04:09 05/12/18 04:09 Meds: Medications Acetaminophen (Tylenol) 650 mg PO Q6HP PRN PRN Reason: PAIN/FEVER > 101 Hydrocodone Bitart/Acetaminophen (Morgan 10/325mg) 2 tab PO Q6HP PRN PRN Reason: Pain Last Admin: 05/17/18 14:00 Dose: 2 tab Bisacodyl (Dulcolax) 10 mg MD Q2-3DAYS PRN PRN Reason: Constipation Bumetanide (Bumex) 2 mg PO BIDD ANGELA Last Admin: 05/17/18 15:42 Dose: 2 mg Digoxin (Lanoxin) 125 mcg PO Q48H [facility] Last Admin: 05/17/18 13:58 Dose: 125 mcg Docusate Sodium (Colace) 100 mg PO BID [facility] Last Admin: 05/17/18 20:39 Dose: 100 mg Heparin Sodium (Porcine) (Heparin Flush) 2 ml IV Q12 [facility] Last Admin: 05/17/18 20:40 Dose: 2 ml Metolazone (Zaroxolyn) 2.5 mg PO DAILY@0730 [facility] Last Admin: 05/17/18 07:54 Dose: 2.5 mg Naloxone HCl (Narcan) 0.1 mg IV Q2MIN PRN PRN Reason: Opiate Reversal Ondansetron HCl (Zofran Odt) 4 mg SL Q4HP PRN PRN Reason: Nausea And Vomiting Last Admin: 05/12/18 17:28 Dose: 4 mg Polyethylene Glycol (Miralax) 17 gm PO DAILY PRN PRN Reason: Constipation Last Admin: 05/15/18 13:21 Dose: 17 gm Potassium Chloride (Kdur) 20 meq PO QAMCC [facility] Last Admin: 05/17/18 08:55 Dose: 20 meq Senna (Senokot) 2 tab PO BID [facility] Last Admin: 05/17/18 20:39 Dose: 2 tab Sodium Chloride (Saline Flush) 10 ml IV UD PRN PRN Reason: FLUSH Last Admin: 05/15/18 21:42 Dose: 10 ml Sodium Chloride (Saline Flush) 10 ml IV Q12 [facility] Last Admin: 05/17/18 20:40 Dose: 10 ml Vitamin D (Vitamin D3) 2,000 unit PO DAILY [facility] Last Admin: 05/17/18 08:59 Dose: 2,000 unit - ABG Interpretation ABG results: 05/06/18 08:16 ABG Methemoglobin 0.3 L VBG pH 7.41 VBG pCO2 68.4 H* VBG pO2 57 H VBG HCO3 41.9 H* VBG Total CO2 44.0 H* VBG O2 Saturation 85.2 H VBG Base Excess 14.8 H Medical - PN: A/P - Time Spent With Patient Total time spent is greater than 50% in coordination of care (as documented) at patient's floor/unit and/or counseling patient: Medical - PN: Qual - VTE Deep Vein Thrombosis/Pulmonary Embolism Present on Admission: No
[2018-05-18 07:13] LABS: Basophils # (Auto) 0 K/mcL (0.0-0.3); Basophils % (Auto) 0.2 % (0.0-2.0); Eosinophils # (Auto) 0.3 K/mcL (0.0-0.7); Granulocytes % (Auto) 56.1 % (38.0-78.0); Lymphocytes # (Auto) 1.3 K/mcL (1.5-4.8); Lymphocytes % (Auto) 25.3 % (15.5-49.0); Mean Cell Volume 99.4 fL (80.0-100.0); Mean Corpuscular HGB Conc 33.7 g/dL (31.0-36.0); Mean Corpuscular Hemoglobin 33.5 pg (26.0-34.0); Monocytes # (Auto) 0.6 K/mcL (0.1-0.9); Monocytes % (Auto) 12.4 % (1.0-12.0); Platelet Count 226 K/mcL (140-440); RBC 3.28 M/mcL (4.50-5.90)
[2018-05-18] MEDS: METOLAZONE 2.5 MG TABLET PO SCH (07:35)
[2018-05-18] MEDS: HYDROcodone/APAP 10/325MG TABLET PO PRN (08:08)
[2018-05-18 08:14] LABS: Prealbumin 15.7 mg/dl (20-40)
[2018-05-18 08:25] LABS: ALT/SGPT 16 U/l (0-40); Albumin 3.3 gm/dL (3.2-5.2); Albumin/Globulin Ratio 0.6 (1.0-2.3); Alkaline Phosphatase 121 U/L (39-117); Blood Urea Nitrogen 66 mg/dl (6-20)
[2018-05-18] MEDS: BUMETANIDE 1 MG TABLET PO SCH (08:50)
[2018-05-18] MEDS: VITAMIN D3 1,000 UNIT TABLET PO SCH (08:51)
[2018-05-18] MEDS: DOCUSATE SODIUM 100 MG CAPSULE PO SCH (08:51)
[2018-05-18] MEDS: APIXABAN 2.5 MG TABLET PO SCH (08:51)
[2018-05-18] MEDS: POTASSIUM CHLORIDE 20 MEQ TABLET PO SCH (08:51)
[2018-05-18] MEDS: SENNOSIDES 1 TABLET PO SCH (08:51)
[2018-05-18] MEDS: 0.9 % SODIUM CHLORIDE 10 ML SYRINGE IV SCH (08:52)
--- NOTE | 2018-05-18 10:39 | Discharge Summary ---
Medical - DS: Prov Patient information: Note initiated : 05/18/18 at 10:37 am Service Date, if different from initiated Date: [] Patient: Branden Espinosa 57 y/o M admitted on 04/20/18 for Worsening Renal Failure. Chief Complaint: [] Date of admission: 04/20/18 14:45 Discharge date: 05/18/18 Primary care physician: Nikolas Whitfield Admitting clinician: Arturo Alvarenga Consults: 04/20/18 14:00 Consult to Physician [CONS] Stat Comment: Consulting Provider: Tatiana White Reason For Exam: Physician to Consult Consult to Physician [CONS] Stat Comment: Consulting Provider: Arturo Alvarenga Reason For Exam: Physician to Consult 04/20/18 17:33 Consult to Physician [CONS] Routine Comment: Wound Care Consult Consulting Provider: Jairon Mckeon Reason For Exam: Physician to Consult Attending physician on discharge: Dawood Duque Medical - DS: Meds - Discharge Medications Prescriptions: Apixaban [Eliquis] 5 mg PO BID #30 tablet Bumetanide [Bumex] 2 mg PO BIDD #60 tablet Digoxin [Digitek] 125 mcg PO Q48 #90 tab Metolazone [Zaroxolyn] 2.5 mg PO DAILY #30 tab Potassium Chloride [K-Tab ER] 20 meq PO QDAY #60 tab Sennosides [Senokot] 2 tab PO BID #30 tablet Vitamin D3 2,000 unit PO DAILY #30 tablet Active and Home Medications: Home Medications honey 80 % topical gel 1 applic TOPICAL QDAY #44 ml 02/08/18 [Rx Confirmed 04/20 Last Taken 03/08/18] CPAP Supplies 1 order INTRANASAL HS 03/09/18 [History Confirmed 04/20/18 Last Taken 1 Month Ago ~03/20/18] hydrocodone 10 mg-acetaminophen 325 mg tablet 2 tab PO Q6H PRN #170 tab [Rx Confirmed 04/20/18 Last Taken Unknown] Low Air Loss Mattress 1 each .ROUTE DAILY 04/20/18 [History Confirmed 04/20/18 Last Taken 1 Month Ago ~03/20/18] Bumetanide [Bumex] 2 mg PO BIDD #60 tablet 05/03/18 [Rx Last Taken Unknown] Digoxin [Digitek] 125 mcg PO Q48 #90 tab 05/03/18 [Rx Last Taken Unknown] Metolazone [Zaroxolyn] 2.5 mg PO DAILY #30 tab 05/03/18 [Rx Last Taken Unknown] Polyethylene Glycol 3350 [Miralax] 17 gm PO DAILY PRN packet 05/03/18 [Rx Last Taken Unknown] Potassium Chloride [K-Tab ER] 20 meq PO QDAY #60 tab 05/03/18 [Rx Last Taken Unknown] Warfarin [Coumadin] 2.5 mg PO DAILY #100 tab 05/03/18 [Rx Last Taken Unknown]-- has been changed to Eliquise on this hospitalization Bariatric Hospital Bed 0 .ROUTE .MEDSUPPLY #1 ea 05/12/18 [Rx Last Taken Unknown ]--no for SNF, where he is going now. Medical - DS: Hosp Hospital course: Mr. Espinosa is a 57 year old Male with history of morbid obesity, bedbound, severe pulmonary hypertension, congestive heart failure, chronic kidney disease atrial fibrillation. The patient presents to the hospital for worsening shortness of breath and increased edema in his body. The patient was discharged from this facility I believe on 20 March. He was transferred to [facility] for placement of a pacemaker. His admission in March was also for increased swelling, worsening renal function and was treated as congestive heart failure. At that point in time the patient was supratherapeutic and his INR as well as supratherapeutic and his digoxin level. Digoxin was held. The patient eventually was transferred to a higher center for placement of a pacemaker because of significant cardiac pauses. He underwent the pacemaker placement and was discharged from the facility. According to the patient since his discharge from the tertiary facility the patient has been having increased swelling in his lower extremities. This has been progressively getting worse, this has been accompanied by shortness of breath. He denies any other acute complaints or concerns. He denies taking in too much fluid he is watching his salt intake and is not taking any NSAIDs. The patient denies any chest pain denies any dizziness he does have intermittent changes in vision. The patient was being followed by nephrology in the outpatient, his dose of diuretics were being changed however despite this the patient's edema kept getting worse and therefore the patient was asked to come to the emergency room for evaluation. In the ER the patient was noted to have worsening renal failure, elevated bnp, significant edema, cxr was clear, showed resolving pna, ekg showed poor voltate , afib, 04/21 Patient seen and examined, overnight was not able to sleep well, there was some malfunction in the bariatric bed which kept beeping. Patient tired this morning. He has extensive erythema on his back possible fungal rash. Patient has not had a bowel movement for the last few days wanting a stool softener. He notes his shortness of breath is somewhat better but still not able to lie flat, denies any chest pain nausea vomiting. Appreciate nephrology input. Patient remains on IV Lasix, negative balance since yesterday,-1550 04/22 Pt seen examined, tired today, did not sleep well, bp on the lower end of normal , neg 1500 yesterday Pt has no other complaints. had bm this after noon. nephrology following. labs stable. 04/23 Pt seen examined, slept well last night, denies any acute complaints, noted some chest discomfort yesterday, no chest tightness or pressure, just a flicker, Pt is already anticoagulated with coumadin and INR is therapeutic The patient Creat is trending down, creat is 2.2, He is diuresing well, Neg 5L since admission Plan to use chlorothiazide this afternoon, and then followed by alecia to see if we can improve diuresis 04/24 Pt seen examined, no acute overnight events, [place] [id number] since admission, still has significant edema Start on metolozone 5mg daily, continue IV lasix 80 bid add acetazolamide one dose today for worsening metabolic alkalosis. BP stable HR stable Dig level 1.2-1.3, pt has pacemaker, intermittently pacing on tele inr therapeutic PT feels cpap is not giving enough pressure, even at 14mmhg, have spoken with RT to look into the device. 04/24 [place] [id number] since admission, pt feels ok, still has significant dependent edema, I feel we can switch him to oral meds and see if he continues to diurese on same d/c iv lasix, start on po bumex, and metolozone 5mg before bumex and monitor urine output The patient bed was not zeroed in, and therefore the daily weights are not accurate, I am not using daily weight to monitor treatment at this time. 04/26-patient doing well. No overnight events. Over 1600 cc net negative in 24 hours. Lower dose of metolazone. Continue Diamox due to contraction alkalosis. Patient undergoing strengthening exercises. Case management arranging SNF transfer. No fever chills shortness of breath. 04/27 -patient doing well. No overnight events. No concerns per staff. No fever chills or shortness of breath. Diuresing well. Additional 2700 cc negative. Bicarbonate at 42 with contraction alkalosis on Diamox. Creatinine 1.8. Ongoing physical therapy. Nephrology on board. 04/28-patient doing better. Ongoing diuresis. No dyspnea/chest pain. Ongoing physical therapy. Continues to be bedridden due to morbid obesity. Anticipate SNF transfer. Case management and coordinating. Creatinine 1.9. Bicarbonate 44 on twice-daily Diamox. April 29-patient doing well. No overnight events. Awaiting SNF transfer. Additional 2000 cc net negative. Bicarbonate 45. On Diamox for contraction alkalosis. Creatinine 1.7. Ongoing physical therapy. No concerns per staff 04/30-patient doing well. No overnight events. Diuresis additional 2400 cc. On combination diuretics. Electrolytes stable. Ongoing physical therapy. Case management coordinating discharge planning. Likely likely stay inpatient through the weekend until placement 05/01-patient doing well. No overnight events. No concerns per staff. No fever chills diuresing well. Only 6/metolazone/acetazolamide. Proteinuria currently being managed by nephrology. Electrophoresis/free light chains ordered per nephrology. Case management arranging SNF transfer. Anticipate additional 48 hours until placement can be arranged. 05/02-patient resting comfortably. No overnight events. Additional 2000 cc net negative fluid status. Creatinine around 2. Persistent alkalosis with bicarbonate 43. On twice a day Diamox. Still awaiting SNF placement. Significant excoriation bilateral dependent sacral gluteal area, on frequent turning/repositioning to avoid decubiti. Ongoing physical therapy 05/03 Pt seen examined, no acute overnight issues, tolerating po diet well, neg 28L since admission, pt labs are stable, on IV acetazolamide, bumex and metolozone. Will d/c the IV acetazolamide and see how his bicarb trends No safe discharge plan yet. Working with case management for discharge planning. 05/04 pt seen examined, no acute issue tolerating po well neg 2L since yesterday bicarb stable off acetazolamide awating xfer, cret 1.7, improved from before. 05/05 Pt seen examined no acute overnight events, he is neg 4 L yesterday, total of neg 34L since admission no new complaints he did get out of bed to chair today with the help of 3 people, not strong enough to do by self, some knee pain after the transfer awaiting social media developer to find place for the patient. 05/06 Pt seen examined, no acute issues INR 1.7 pt has no new complaints or concerns bicart is 41 vbg shows ph 7.41 continue present treatment plan for d/c to snf on wednesday, it seems the rehab and pts insurance has worked out an payment arrangement Pt needs bariatric bed aggresive pt, twice daily, ot twice daily to get him back on his feet 05/07 Pt seen examined, no acute overnight events, doing well neg 40L since admission awaiting placement on tuesday 05/08 Pt seen examined, in bed comfortable tolerating po well no acute complaints of issues diuresing well creat down to 1.5, bicarb 41 awaiting placement on wednesday 05/09 still awaiting clearnce from insurance [employer] no changes from yesterday pt continuing to diurese well Case management informed pt should be covered for eliquis inr sub therapeutic d/c coumadin and start on eliquis. 05/10 pt seen examined, labs reviewed bicarb 39, creat up to 1.8, pt urine output is good, eliquis started, did not sleep well,pt feels its secondary to eliquis, I am not sure if eliquis should have meaningful ASSISTANT STATISTICIAN effects will monitor for now. It seems the deal with insurance company and SNF fell through and the patient still is waiting for placement. 05/11 Pt seen examined,[place] [id number] since admission awaiting placement. 05/12 Patient seen examined, no acute overnight events, [place] [id number] neg edema much better, cut back on the dose of diuretics to 1mg bid of bumex, continue metolozone relax some fluid restriction to 1500ml/24 hrs Extended care conference held, plan to get patient home when we are able to achieve the necessary equipment/ and ensure that he is able to do transfers at home, Case management to recheck if Rehab [facility] if an option. 05/13/2018, assume care from Dr. Alvarenga Long discussion with patient, explaining his best interest is to be in an exercise regimen environment for weight loss and strengthening, along with dietitian/paleontological helper crafting portion-control, joe-[id number]-[id number]-calorie with high fiber diet. Extended care conference with Warp Tying Machine Tender-social work, awaiting Rehabilitation [facility] ([place]), and potential rehabilitation facility at [place]. Continue PT OT rehabilitation while pending on the above applications, attempt to have a low-fat low-calorie diet with exercise regimen to achieve weight loss and strengthening. Continue on Bumex 1 mg twice a day, metolazone 2.5 mg daily, fluid restriction. 05/14/2018 Discussed that with him in great length and explained the importance and essence of core muscle exercise and fat-weight loss, to improve his physical strength. I also encouraged him to continue and increase frequency of these core strength exercises in bed. He understood and is energized to do them Throughout the rest of the remaining week, he actively participated with PT and increase his core exercises, and was able to achieve significant improvement and able to be transferred out of bed to his electric wheelchair. Therefore he can continue to participate with physical therapy for strengthening and can be done at rehabilitation shelter facility. He is accepted to [facility] with PT rehab. and continue wound care on his healing decubitus ulcer. Discharge diagnosis: Right heart failure, acute on chronic Secondary discharge diagnosis: Acute on chronic cor pulmonale Acute on chronic renal failure, resolving Anasarca Morbid obesity Decubitus ulcer, healing with wound care. Atrial fibrillation, s/p pacemaker-rate controlled with digoxin, off beta blockers, digoxin every other day, on eliquis now, off coumadin Obstructive sleep apnea- cpap at night Bed bound status- continue aggressive ot/pt, diet & core-strengthening exercises for fat weight loss, chronic anemia, stable. HTN- bp stable off anti hypertensives Metabolic alkalosis, combination of doug, co2 retention and diuresis, ph 7.41 on vbg today, off diamox,. Full code - Time Spent with Patient Total time spent providing and/or coordinating discharge services: Greater than 30 minutes Specific discharge activities: Continue fluid restriction with diuretic, close monitoring. Aggressive PT/OT, diet and core strengthening exercises, fat weight loss. Wound care for his healing decubitus ulcer, continue CPAP use. Medical - DS: Exam - Constitutional Vitals: Vital Signs Temp Pulse Pulse Pulse Resp BP Pulse Ox 05/18/18 08:00 97.8 F 87 16 121/74 94 05/18/18 03:55 16 05/17/18 23:26 98.9 F 101 H 14 93/66 97 05/17/18 20:00 97.3 F 108 H 16 107/68 94 05/17/18 16:00 97.9 F 116 H 18 112/76 Intake and Output 05/17/18 05/18/18 05/18/18 21:59 05:59 13:59 Intake Total 410 / 410 180 / 180 Output Total 1200 / 1200 650 / 650 Balance -790 / -790 -470 / -470 Intake: Oral 410 / 410 180 / 180 Output: Void Amount 1200 / 1200 650 / 650 Other: Meal Dinner Percent of Meal Consumed 100% Feeding Ability Independent Stool Size Large Stool Color Brown Stool Consistency Soft # Bowel Movements 1 Weight 341 lb 1.6 oz General appearance: morbidly obese - Head Head exam: Present: atraumatic, normocephalic - Eye Eye exam: Present: EOMI Pupils: Present: normal accommodation, PERRL - ENT ENT exam: Present: mucous membranes moist - Neck Neck exam: Present: full ROM. Absent: meningismus - Respiratory Respiratory exam: Present: CTAB. Absent: accessory muscle use - GI/Abdominal GI/Abdominal exam: Present: soft. Absent: rebound, tenderness Additional comments: Morbidly obese abdomen - Extremities Exam Extremities exam: Absent: tenderness - Neurological Exam Neurological exam: Present: alert, CN II-XII intact, oriented X3 Medical - DS: Data Labs on day of discharge: Labs from last 24 hours 05/18/18 05/18/18 05/18/18 09:33 06:38 06:38 WBC 5.3 RBC 3.28 L Hgb 11.0 L Hct 32.6 L MCV 99.4 MCH 33.5 MCHC 33.7 RDW 14.0 Plt Count 226 MPV 8.1 Gran % 56.1 Lymph % (Auto) 25.3 [place] % (Auto) 12.4 H Eos % (Auto) 6.0 Baso % (Auto) 0.2 Gran # 3.0 Lymph # (Auto) 1.3 L [place] # (Auto) 0.6 Eos # (Auto) 0.3 Baso # (Auto) 0 Sodium 136 Potassium 3.3 Chloride 89 L Carbon Dioxide 32 H Anion Gap 15.0 BUN 66 H Creatinine 1.7 H GFR Calculation 43 Glucose 99 Calcium 9.7 Phosphorus 3.3 Magnesium 2.0 Total Bilirubin 1.5 H AST 40 H ALT 16 Alkaline Phosphatase 121 H NT-Pro-B Natriuret Pep 3986.0 H Total Protein 8.4 Albumin 3.3 Globulin 5.1 H Albumin/Globulin Ratio 0.6 L Prealbumin 15.7 L Urine Color Pending Urine Appearance Pending Urine pH Pending Ur Specific [place] Pending Urine Protein Pending Urine Glucose (UA) Pending Urine Ketones Pending Urine Occult Blood Pending Urine Nitrate Pending Urine Bilirubin Pending Urine Urobilinogen Pending Ur Leukocyte Esterase Pending Digoxin Digoxin Dose Digox Last Dose Time 05/18/18 06:38 WBC RBC Hgb Hct MCV MCH MCHC RDW Plt Count MPV Gran % Lymph % (Auto) [place] % (Auto) Eos % (Auto) Baso % (Auto) Gran # Lymph # (Auto) [place] # (Auto) Eos # (Auto) Baso # (Auto) Sodium Potassium Chloride Carbon Dioxide Anion Gap BUN Creatinine GFR Calculation Glucose Calcium Phosphorus Magnesium Total Bilirubin AST ALT Alkaline Phosphatase NT-Pro-B Natriuret Pep Total Protein Albumin Globulin Albumin/Globulin Ratio Prealbumin Urine Color Urine Appearance Urine pH Ur Specific [place] Urine Protein Urine Glucose (UA) Urine Ketones Urine Occult Blood Urine Nitrate Urine Bilirubin Urine Urobilinogen Ur Leukocyte Esterase Digoxin 0.5 Digoxin Dose Not Reportable Digox Last Dose Time Not Reportable Preliminary micro results at discharge 04/20/18 12:15 Blood Culture - Preliminary Blood Gram positive cocci Medical - DS: A/P - Patient/Caregiver Discharge Instructions Activity: as per physical therapy, increase activity as tolerated Diet: Cardiac, Low Fat, High Fiber Additional Instructions: Wound Care: Cleanse lower legs and feet with chlorhexidine before dressing changes. Right posterior lower leg wound: Cleanse with saline, dress with Hydrofera Blue Ready , secure with tape. Change weekly. Offload sacrum by [id number] turning, sacral dressing change every 3 days and prn. Keep backside clean and dry. InterDry to folds and rash areas or antifungal powder. May use facility equivalents. Follow up at wound healing center in 1 week. A referral has been made for the wound healing center. They will be calling SNF to schedule a time and date that is acceptable for your transportation needs. Prescriptions: Apixaban [Eliquis] 5 mg PO BID #30 tablet Bumetanide [Bumex] 2 mg PO BIDD #60 tablet Digoxin [Digitek] 125 mcg PO Q48 #90 tab Metolazone [Zaroxolyn] 2.5 mg PO DAILY #30 tab Potassium Chloride [K-Tab ER] 20 meq PO QDAY #60 tab Sennosides [Senokot] 2 tab PO BID #30 tablet Vitamin D3 2,000 unit PO DAILY #30 tablet Other Amb Orders: Physical Therapy at Discharge - General Location: Determined By Patient Wound Care/Dressings Location: Determined By Patient - Follow up Plan Follow up with: Catalina Simpson MD [Physician] - (Call and schedule follow up appointment for 1 week for a time and date that meets your transportation needs.) Nikolas Whitfield MD [Primary Care Provider] - (Call and schedule follow up appointment for 1 week for a time and date that meets your transportation needs. ) Disposition: Xfer SNF Prognosis: Fair Rehab Potential: Good I certify that the patient requires SNF services: Yes (PT,OT, wound care.) Overall status at discharge: patient is progressing back to baseline Medical - DS: Qual - VTE Deep Vein Thrombosis/Pulmonary Embolism Present on Admission: No
[2018-05-18 11:01] LABS: Appearance,Urine CLEAR; Bilirubin,Urine NEG (NEG); Color,Urine YELLOW; Glucose,Urine (UA) NEGATIVE (NEG); Leukocyte Esterase,Urine NEG /uL (NEG); Protein,Urine NEG (NEG); Specific Gravity,Urine 1.015 (1.000-1.035); Urine Blood NEG mg/dL (<0.03)
--- NOTE | 2018-05-23 11:01 | Operative Note ---
DATE OF OPERATION: 05/13/2018 PREOPERATIVE DIAGNOSIS: Onychocryptosis left hallux. POSTOPERATIVE DIAGNOSIS: Onychocryptosis left hallux. PROCEDURE: Partial nail avulsion, left hallux. PROCEDURE IN DETAIL: The patient was seen in hospital bed with paronychia and an ingrown toenail in the lateral aspect of his left hallux. This toe was scrubbed, prepped and draped in the usual aseptic manner. Esmarch applied. A total of 5 mL 0.5% Marcaine plain infiltrated in a ring block. The offending nail border was removed utilizing a [place] elevator and an Malian anvil and hemostat. Approximately 4 mm of nail spicule was removed. This area was then irrigated with alcohol and bacitracin, 4 x 4 gauze and Coban for post-procedural dressings. The patient tolerated the procedure and anesthesia well. He has instructions to leave the dressings on for 24 hours and the nursing will change this at his next visit the next day. [id number] Job ID: [id number] Doc ID: [id number] Eric Fay DPM
== END 2018-05-18 12:18 | DRG 291 ==
LOC: ED 11:43 → ICU 14:45 → SUATTDRO 14:45 → MEDSUR 04-29 15:48
PROVIDERS: ADMIT Internal Medicine; ATTEND Podiatrist Foot & Ankle Surgery

== ENCOUNTER 2021-01-12 23:33 | Inpatient (IN) ==
[2021-01-13 00:32] LABS: Basophils # (Auto) 0.02 K/mcL (0.00-0.20); Basophils % (Auto) 0.4 % (0.0-2.0); Eosinophils # (Auto) 0.13 K/mcL (0.00-0.70); Eosinophils % (Auto) 2.3 % (0.0-7.0); Hemoglobin 7.2 g/dL (13.5-16.5); Lymphocytes # (Auto) 1.64 K/mcL (1.50-4.80); Lymphocytes % (Auto) 29.2 % (15.0-49.0); Mean Corpuscular HGB Conc 31.3 g/dL (31.0-36.0); Mean Platelet Volume 9.7 fL (7.4-10.4); Monocytes # (Auto) 0.59 K/mcL (0.10-0.90); Monocytes % (Auto) 10.5 % (1.0-12.0); Neutrophils % (Auto) 57.6 % (38.0-78.0); Platelet Count 194 K/mcL (140-440); RBC 2.13 M/mcL (4.50-5.90); Red Cell Distribution Width 17.9 % (11.5-14.5); WBC 5.6 K/mcL (4.5-11.0)
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
[2021-01-13] MEDS ORDERED: 0.9 % SODIUM CHLORIDE 1,000 ML IV ONE (00:38)
[2021-01-13 00:54] LABS: ALT/SGPT 6 U/L (<40); AST/SGOT 22 U/L (<40); Albumin 2.6 gm/dL (3.2-5.2); Albumin/Globulin Ratio 0.5 (1.0-2.3); Alkaline Phosphatase 142 U/L (39-117); Bilirubin,Total 0.9 mg/dL (0.1-1.0); Blood Urea Nitrogen 25 mg/dL (8-23); Calcium 8.6 mg/dL (8.6-10.4); Carbon Dioxide 28 mmol/L (22-30); Chloride 91 mmol/L (96-108); Globulin 5.2 gm/dL (2.2-3.7); Glomerular Filtration Rate 16; Glucose 124 mg/dL (70-105)
[2021-01-13] MEDS ORDERED: POTASSIUM CHLORIDE 20 MEQ in DEXTROSE 5% IN WATER 250 ML IV ONE (01:12)
[2021-01-13] MEDS ORDERED: POTASSIUM CHLORIDE 20 MEQ TABLET PO ONE (01:12)
--- NOTE | 2021-01-13 08:43 | Cat Scan Report ---
CLINICAL INFORMATION: Slurred speech COMPARISON: None. TECHNIQUE: 2.5 mm helical slices were obtained in the skull base to vertex. Following reconstruction, axial reformatted images were reviewed at bone and parenchymal windows. The exam was performed using radiation dose optimization techniques including, but not limited to, automated exposure control, adjustment of the mA and/or kV according to patient size and use of iterative reconstruction technique. FINDINGS: The ventricles, sulci, fissures, and cisterns are symmetrically enlarged bowel mild age-related atrophy.. No extra-axial fluid collections are identified. Mild chronic ischemic changes in the cerebral white matter expected for age.. There is no evidence of hemorrhage, mass effect, or edema. Bone windows show mild hyperostosis from talus internal - benign condition. No significant osseous abnormality. IMPRESSION: Mild atrophy and minimal chronic ischemic changes in the deep cerebral white matter expected for age. No acute findings. Interpreted and Authenticated by: Darian Mulligan 01/13/21
--- NOTE | 2021-01-13 08:51 | XRay Report ---
CLINICAL INFORMATION: suddent weakness COMPARISON: 04/20/2018 FINDINGS: Mild cardiomegaly is unchanged. Right Port-A-Cath tip overlies the SVC right atrial junction. There is no pneumothorax or other complication from catheter placement. Pacemaker leads remain in stable satisfactory position. Mediastinum and pulmonary vessels are normal. The lungs are clear. No effusions IMPRESSION: Port-A-Cath in satisfactory position. No complication catheter placement. Interpreted and Authenticated by: Darian Mulligan 01/13/21
[2021-01-13 09:56] LABS: Basophils # (Auto) 0.02 K/mcL (0.00-0.20); Basophils % (Auto) 0.4 % (0.0-2.0); Eosinophils # (Auto) 0.12 K/mcL (0.00-0.70); Eosinophils % (Auto) 2.5 % (0.0-7.0); Hematocrit 21.9 % (41.0-55.0); Lymphocytes # (Auto) 1.25 K/mcL (1.50-4.80); Lymphocytes % (Auto) 26.4 % (15.0-49.0); Mean Cell Volume 107.9 fL (80.0-100.0); Mean Platelet Volume 9.4 fL (7.4-10.4); Monocytes # (Auto) 0.48 K/mcL (0.10-0.90); Monocytes % (Auto) 10.1 % (1.0-12.0); Neutrophils % (Auto) 60.6 % (38.0-78.0); Platelet Count 174 K/mcL (140-440); RBC 2.03 M/mcL (4.50-5.90); Red Cell Distribution Width 17.8 % (11.5-14.5); WBC 4.7 K/mcL (4.5-11.0)
[2021-01-13 10:10] LABS: ALT/SGPT 5 U/L (<40); AST/SGOT 22 U/L (<40); Albumin 2.3 gm/dL (3.2-5.2); Albumin/Globulin Ratio 0.4 (1.0-2.3); Alkaline Phosphatase 139 U/L (39-117); Bilirubin,Total 1.1 mg/dL (0.1-1.0); Blood Urea Nitrogen 28 mg/dL (8-23); Calcium 8.4 mg/dL (8.6-10.4); Carbon Dioxide 28 mmol/L (22-30); Chloride 92 mmol/L (96-108); Globulin 5.3 gm/dL (2.2-3.7); Glomerular Filtration Rate 14; Glucose 87 mg/dL (70-105)
[2021-01-13] MEDS ORDERED: HEPARIN 5,000 UNIT/ML VIAL SQ SCH (10:51)
[2021-01-13] MEDS ORDERED: DOCUSATE SODIUM 100 MG CAPSULE PO SCH (10:51)
[2021-01-13] MEDS ORDERED: LACTULOSE 20 GM/30 ML ORAL.SOL PO PRN ×2 (10:51→17:27)
[2021-01-13] MEDS ORDERED: ACETAMINOPHEN 325 MG TABLET PO PRN ×2 (10:51→17:27)
[2021-01-13] MEDS ORDERED: ONDANSETRON 4 MG/2 ML VIAL IV PRN ×2 (10:51→17:27)
[2021-01-13] MEDS ORDERED: 0.9 % SODIUM CHLORIDE 1,000 ML IV SCH (10:51)
[2021-01-13] MEDS ORDERED: OSELTAMIVIR PHOSPHATE 30 MG CAPSULE PO ONE (10:51)
[2021-01-13] MEDS ORDERED: NALOXONE HCL 0.4 MG/ML VIAL IV PRN ×2 (10:51→17:27)
[2021-01-13] MEDS ORDERED: SENNOSIDES 1 TABLET PO PRN ×2 (10:51→17:27)
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
[2021-01-13] MEDS ORDERED: HYDROcodone/APAP 10/325MG TABLET PO PRN (12:49)
[2021-01-13] MEDS ORDERED: BISACODYL 10 MG SUPP.RECT PR PRN ×2 (12:49→17:27)
[2021-01-13] MEDS ORDERED: POLYETHYLENE GLYCOL 3350 17 GM PACKET PO PRN ×2 (12:49→17:27)
[2021-01-13] MEDS ORDERED: CALCIUM CARBONATE 500 MG TAB.CHEW PO PRN ×2 (13:20→17:27)
[2021-01-13] MEDS ORDERED: MIDODRINE 5 MG TABLET PO ONE (13:43)
[2021-01-13] MEDS ORDERED: AMIODARONE HCL 200 MG TABLET PO ONE (13:44)
[2021-01-13] MEDS ORDERED: 0.9 % SODIUM CHLORIDE 10 ML SYRINGE IV SCH (14:00)
[2021-01-13] MEDS ORDERED: 0.9 % SODIUM CHLORIDE 250 ML IV SCH (16:30)
[2021-01-13] MEDS: NOREPINEPHRINE BITARTRATE 8 MG in 0.9 % SODIUM CHLORIDE 242 ML IV SCH (16:42)
[2021-01-13] MEDS ORDERED: PANTOPRAZOLE 40 MG TABLET PO SCH (17:00)
[2021-01-13] MEDS ORDERED: MIDODRINE 5 MG TABLET PO SCH (17:00)
[2021-01-13] MEDS: 0.9 % SODIUM CHLORIDE 250 ML IV SCH (17:28)
[2021-01-13] MEDS ORDERED: APIXABAN 5 MG TABLET PO SCH (21:00)
[2021-01-13] MEDS: APIXABAN 5 MG TABLET PO SCH (21:17)
[2021-01-13] MEDS: DOCUSATE SODIUM 100 MG CAPSULE PO SCH (21:17)
[2021-01-13] MEDS: 0.9 % SODIUM CHLORIDE 10 ML SYRINGE IV SCH (21:18)
[2021-01-14] MEDS: NOREPINEPHRINE BITARTRATE 8 MG in 0.9 % SODIUM CHLORIDE 242 ML IV SCH (03:33)
[2021-01-14] MEDS: 0.9 % SODIUM CHLORIDE 10 ML SYRINGE IV SCH ×3 (05:58→20:44)
[2021-01-14] MEDS: 0.9 % SODIUM CHLORIDE 250 ML IV SCH ×2 (05:58→16:55)
[2021-01-14] MEDS ORDERED: NOREPINEPHRINE BITARTRATE 8 MG in 0.9 % SODIUM CHLORIDE 242 ML IV SCH (06:30)
[2021-01-14 07:23] LABS: Basophils # (Auto) 0.03 K/mcL (0.00-0.20); Basophils % (Auto) 0.4 % (0.0-2.0); Eosinophils # (Auto) 0.12 K/mcL (0.00-0.70); Eosinophils % (Auto) 1.8 % (0.0-7.0); Hematocrit 24.7 % (41.0-55.0); Hemoglobin 7.7 g/dL (13.5-16.5); Lymphocytes # (Auto) 1.44 K/mcL (1.50-4.80); Lymphocytes % (Auto) 21.3 % (15.0-49.0); Mean Cell Volume 108.8 fL (80.0-100.0); Mean Corpuscular HGB Conc 31.2 g/dL (31.0-36.0); Mean Platelet Volume 9.7 fL (7.4-10.4); Monocytes # (Auto) 0.59 K/mcL (0.10-0.90); Monocytes % (Auto) 8.7 % (1.0-12.0); Neutrophils % (Auto) 67.8 % (38.0-78.0); Platelet Count 208 K/mcL (140-440); RBC 2.27 M/mcL (4.50-5.90); Red Cell Distribution Width 17.5 % (11.5-14.5); WBC 6.8 K/mcL (4.5-11.0)
[2021-01-14] MEDS ORDERED: LEVOTHYROXINE 50 MCG TABLET PO SCH (07:30)
[2021-01-14 07:47] LABS: ALT/SGPT 5 U/L (<40); AST/SGOT 24 U/L (<40); Albumin 2.5 gm/dL (3.2-5.2); Albumin/Globulin Ratio 0.5 (1.0-2.3); Alkaline Phosphatase 148 U/L (39-117); Bilirubin,Direct 0.6 mg/dL (<0.3); Bilirubin,Total 1.2 mg/dL (0.1-1.0); Blood Urea Nitrogen 37 mg/dL (8-23); Calcium 8.3 mg/dL (8.6-10.4); Carbon Dioxide 24 mmol/L (22-30); Chloride 93 mmol/L (96-108); Globulin 5.5 gm/dL (2.2-3.7); Glomerular Filtration Rate 13; Glucose 90 mg/dL (70-105); Lactate Dehydrogenase 189 U/L (135-225); Phosphorous 5.5 mg/dL (2.5-4.5); Triglycerides 134 mg/dL (<150); Uric Acid 4.6 mg/dL (2.5-8.0)
[2021-01-14] MEDS ORDERED: FOLIC ACID 1 MG TABLET PO SCH (09:00)
[2021-01-14] MEDS ORDERED: AMIODARONE HCL 200 MG TABLET PO SCH (09:00)
[2021-01-14] MEDS ORDERED: KETOCONAZOLE 2% TOP CRM 15GM TUBE TOPICAL SCH (09:00)
[2021-01-14] MEDS ORDERED: ALLOPURINOL 100 MG TABLET PO SCH (09:00)
[2021-01-14] MEDS ORDERED: MULTIVIT,THER IRON,CA,FA & MIN 1 TABLET PO SCH (09:00)
[2021-01-14] MEDS ORDERED: THIAMINE 100 MG TABLET PO SCH (09:00)
[2021-01-14] MEDS: AMIODARONE HCL 200 MG TABLET PO SCH (09:45)
[2021-01-14] MEDS: MIDODRINE 5 MG TABLET PO SCH ×3 (09:45→16:00)
[2021-01-14] MEDS: ALLOPURINOL 100 MG TABLET PO SCH (09:45)
[2021-01-14] MEDS: MULTIVIT,THER IRON,CA,FA & MIN 1 TABLET PO SCH (09:45)
[2021-01-14] MEDS: PANTOPRAZOLE 40 MG TABLET PO SCH ×2 (09:46→16:00)
[2021-01-14] MEDS: FOLIC ACID 1 MG TABLET PO SCH (09:46)
[2021-01-14] MEDS: HYDROcodone/APAP 10/325MG TABLET PO PRN ×2 (09:46→16:53)
[2021-01-14] MEDS: DOCUSATE SODIUM 100 MG CAPSULE PO SCH ×2 (09:46→20:44)
[2021-01-14] MEDS: THIAMINE 100 MG TABLET PO SCH (09:51)
[2021-01-14] MEDS: APIXABAN 5 MG TABLET PO SCH ×2 (09:51→20:44)
[2021-01-14] MEDS: LEVOTHYROXINE 50 MCG TABLET PO SCH (09:51)
[2021-01-14] MEDS: KETOCONAZOLE 2% TOP CRM 15GM TUBE TOPICAL SCH (09:52)
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
[2021-01-14] MEDS: NOREPINEPHRINE BITARTRATE 16 MG in 0.9 % SODIUM CHLORIDE 234 ML IV SCH (09:59)
--- NOTE | 2021-01-14 12:58 | Internal Med Progress Note ---
SUBJECTIVE Subjective Patient information: Note initiated : 01/14/21 at 12:53 pm Service Date, if different from initiated Date: [] Patient: Branden Espinosa a 60 y/o M admitted on 01/13/21 for LOW bp. Interval history: 01/13 Mr. Espinosa is a 60 year old M with a history of end-stage renal disease on hemodialysis since October, atrial fibrillation, congestive heart failure, pulmonary hypertension and cor pulmonale, morbid obesity not feeling well with slurred speech. Patient states that he is feeling well up until he got his 9 PM medications. He notes that there were medications given at that time which he did not recognize. About 1 hour later at 10 PM last evening his coordination became poor, felt he had poor strength in his hands, his speech became slurred and slowed. He is transported to the ED. Patient feels that he received an inappropriate medication which may be affecting him. Evaluation at that time showed his speech a little slurred but equal strength. He received 500 mL of NS for low blood pressures, with systolics 70s80s. He was mildly hypokalemic which was repleted without change in symptoms. He received his usual hemodialysis on Wednesday, onset of symptoms were Wednesday evening. In spite of observation, the patient did not fully improve and he remained with low blood pressures (his normal systolic he tells me runs from 83-113). He still feels his speech is slightly slurred. Screening for respiratory viruses prior to admission showed a positive influenza B antigen. Patient is being admitted for further evaluation of hypotension, mild neurologic symptoms possibly secondary to inadvertent medication toxicity or influenza. 01/14 No complaints this morning. Remains on peripheral norepinephrine to maintain blood pressure. No fevers, no chills. No respiratory symptoms, no myalgias. Pertinent ROS: As above Constitutional Vitals: Vital Signs Temp Pulse Resp BP Pulse Ox 96.4 F L 78 14 117/74 95 01/14/21 11:38 01/14/21 12:44 01/14/21 12:01 01/14/21 12:44 01/14/21 12:01 Period Temp Pulse Resp BP Sys/Andujar Pulse Ox Last 24 Hr 96.4 F-98.4 F 78-97 12-37 64-117/37-92 83-100 Intake and Output 01/13/21 01/14/21 01/14/21 21:59 05:59 13:59 Intake Total 167 526 353 Balance 167 526 353 Weight 345 lb 14.4 oz GENERAL: Nontoxic, appears comfortable RESPIRATORY: Clear to auscultation bilaterally CARDIOVASCULAR: Regular ABDOMEN: Soft, nontender EXTREMITIES: Warm, nondiaphoretic NEURO: Alert, oriented x3, generally weak Intake & Output: Intake & Output 01/13/21 01/14/21 01/14/21 21:59 05:59 13:59 Intake Total 167 526 353 Balance 167 526 353 Weight 345 lb 14.4 oz Intake: IV 47 166 173 Sodium Chloride 0.9% 1,000 ml @ 0 250 mls/hr IV .Q4H ANGELA Rx#: [id number] Levophed 16 mg In Sodium 47 166 173 Chloride 0.9% 234 ml @ 10 MCG/ MIN 9.375 mls/hr IV Q24H ANGELA Rx #:[id number] Oral 120 360 180 Other: Meal Dinner Breakfast Percent of Meal Consumed 50% 100% Feeding Ability Assist with Tray Set Up OBJ DATA Labs CBC & Chem 7: 01/14/21 06:04 01/14/21 06:04 Labs: Abnormal Lab Results 01/14/21 01/14/21 01/13/21 06:04 06:04 09:00 RBC 2.27 L Hgb 7.7 L Hct 24.7 L MCV 108.8 H MCH RDW 17.5 H Lymph # (Auto) 1.44 L Sodium 131 L 131 L Potassium Chloride 93 L 92 L BUN 37 H 28 H Creatinine 4.6 H 4.2 H Glucose Calcium 8.3 L 8.4 L Phosphorus 5.5 H Total Bilirubin 1.2 H 1.1 H Direct Bilirubin 0.6 H Alkaline Phosphatase 148 H 139 H Albumin 2.5 L 2.3 L Globulin 5.5 H 5.3 H Albumin/Globulin Ratio 0.5 L 0.4 L 01/13/21 01/12/21 01/12/21 09:00 23:38 23:38 RBC 2.03 L 2.13 L Hgb 7.0 L* 7.2 L Hct 21.9 L 23.0 L MCV 107.9 H 108.0 H MCH 34.5 H RDW 17.8 H 17.9 H Lymph # (Auto) 1.25 L Sodium 130 L Potassium 3.2 L Chloride 91 L BUN 25 H Creatinine 3.9 H Glucose 124 H Calcium Phosphorus Total Bilirubin Direct Bilirubin Alkaline Phosphatase 142 H Albumin 2.6 L Globulin 5.2 H Albumin/Globulin Ratio 0.5 L Meds: Medications Acetaminophen (Acetaminophen 325 Mg Tablet) 650 mg PO Q6HP PRN; Protocol PRN Reason: Per Pain Protocol/Fever > 101 Hydrocodone Bitart/Acetaminophen (Hydrocodone/Apap 10/325mg Tablet) 2 tab PO Q6HP PRN; Protocol PRN Reason: Pain Last Admin: 01/14/21 09:46 Dose: 2 tab Documented by: Allopurinol (Allopurinol 100 Mg Tablet) 200 mg PO QDAY [facility] Last Admin: 01/14/21 09:45 Dose: 200 mg Documented by: Amiodarone HCl (Amiodarone Hcl 200 Mg Tablet) 200 mg PO QDAY [facility] Last Admin: 01/14/21 09:45 Dose: 200 mg Documented by: Apixaban (Apixaban 5 Mg Tablet) 5 mg PO BID [facility] Last Admin: 01/14/21 09:51 Dose: 5 mg Documented by: Bisacodyl (Bisacodyl 10 Mg Supp.Rect) 10 mg TX DAILYP PRN PRN Reason: Constipation Calcium Carbonate/Glycine (Calcium Carbonate 500 Mg Tab.Chew) 1,000 mg PO Q6HP PRN PRN Reason: Heartburn Docusate Sodium (Docusate Sodium 100 Mg Capsule) 100 mg PO BID [facility] Last Admin: 01/14/21 09:46 Dose: 100 mg Documented by: Folic Acid (Folic Acid 1 Mg Tablet) 1 mg PO QDAY [facility] Last Admin: 01/14/21 09:46 Dose: 1 mg Documented by: Sodium Chloride (Sodium Chloride 0.9%) 250 mls @ 20 mls/hr IV .[id number] [facility] Last Admin: 01/14/21 05:58 Dose: 20 mls/hr Documented by: Norepinephrine Bitartrate 16 (mg/ Sodium Chloride) 250 mls @ 9.375 mls/hr IV Q24H [facility]; Protocol Last Titration: 01/14/21 10:31 Dose: 15 mcg/min, 14.063 mls/hr Documented by: Iron Carb/Multivit/[employer]/Folic Acid (Multivit,Ther Iron,Ca,Fa & Min 1 Tablet) 1 tab PO DAILY [facility] Last Admin: 01/14/21 09:45 Dose: 1 tab Documented by: Ketoconazole (Ketoconazole 2% Top Crm 15gm Tube) 1 dose TOPICAL DAILY [facility] Last Admin: 01/14/21 09:52 Dose: Not Given Documented by: Lactulose (Lactulose 20 Gm/30 Ml Oral.Clarice) 10 gm PO DAILYP PRN PRN Reason: Constipation Levothyroxine Sodium (Levothyroxine 50 Mcg Tablet) 50 mcg PO QAMAC [facility] Last Admin: 01/14/21 09:51 Dose: 50 mcg Documented by: Midodrine (Midodrine 5 Mg Tablet) 10 mg PO TID@0800,1200,1700 [facility] Last Admin: 01/14/21 09:45 Dose: 10 mg Documented by: Naloxone HCl (Naloxone Hcl 0.4 Mg/Ml Vial) 0.1 mg IV Q2MIN PRN PRN Reason: Opiate Reversal Ondansetron HCl (Ondansetron 4 Mg/2 Ml Vial) 4 mg IV Q4HP PRN; Protocol PRN Reason: Nausea And Vomiting Pantoprazole Sodium (Pantoprazole 40 Mg Tablet) 40 mg PO BIDAC [facility] Last Admin: 01/14/21 09:46 Dose: 40 mg Documented by: Polyethylene Glycol (Polyethylene Glycol 3350 17 Gm Packet) 17 gm PO Q8HP PRN PRN Reason: Constipation Senna (Sennosides 1 Tablet) 2 tab PO HSP PRN PRN Reason: Constipation Sodium Chloride (0.9 % Sodium Chloride 10 Ml Syringe) 10 ml IV Q8 [facility] Last Admin: 01/14/21 05:58 Dose: 10 ml Documented by: Thiamine HCl (Thiamine 100 Mg Tablet) 100 mg PO DAILY [facility] Last Admin: 01/14/21 09:51 Dose: 100 mg Documented by: A/P Narrative A/P Narrative: 60-year-old male with end-stage renal disease, atrial fibrillation, heart failure, pulmonary hypertension and cor pulmonale presents with alteration in speech and dys-coordination. #Altered neurologic status: Onset approximately 1 hour after receiving evening medications, some of which did not appear to be his own -Skilled facility can provide no further information on what he may have received, notes that a new employee was doing his evening meds -No acute findings on CT, other than some dysarthria no focal neurologic findings except baseline generalized weakness -Blood pressure running lower than normal -Influenza B positive, but without other systemic symptoms unclear if may be contributing -Concern for iatrogenic drug intoxication of some kind, possibly antihypertensive #Hypotension: Patient is on midodrine 3 times a day to help support blood pressure, current blood pressure lower. Previous history of hypertension. -Suspicious for iatrogenic drug toxicity -Low suspicion of sepsis -Anemia, but no evidence of active bleed -Still requiring norepinephrine to maintain blood pressure on 01/14. If he did receive a renally cleared medication, may have prolonged effect. #Influenza B: Patient without significant viral syndrome symptoms -Received influenza vaccine this year #Anemia: Hemoglobin in the low 7 range. On chronic apixaban. No history of bloody stools or other evidence of bleeding. #ESRD: Dialyzes Wednesday, nephrology aware #Atrial fibrillation #Congestive heart failure #Cor pulmonale #Sleep apnea on CPAP at night #Morbid obesity Plan: * Continue midodrine * Continue peripheral norepinephrine, wean as able * Monitor hemoglobin, improved 01/14 * Continue amiodarone * CPAP at night * Supportive care * Droplet precautions * Oseltamavir, 30 mg at admit, then 30 mg following dialysis (will need to dose when he next gets hemodialysis) * Nephrology consultation * Given need for intravenous pressors, change to inpatient status Prophylaxis: On apixaban chronically CODE STATUS: Full code QUALITY VTE Deep Vein Thrombosis/Pulmonary Embolism Present on Admission: No
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
[2021-01-15] MEDS: 0.9 % SODIUM CHLORIDE 250 ML IV SCH ×2 (05:13→19:00)
[2021-01-15] MEDS: NOREPINEPHRINE BITARTRATE 16 MG in 0.9 % SODIUM CHLORIDE 234 ML IV SCH (05:13)
[2021-01-15] MEDS: 0.9 % SODIUM CHLORIDE 10 ML SYRINGE IV SCH ×3 (05:18→20:27)
[2021-01-15] MEDS ORDERED: NOREPINEPHRINE BITARTRATE 4 MG/4 ML VIAL IV ONE (05:19)
--- NOTE | 2021-01-15 07:00 | Nephrology Progress Note ---
SUBJECTIVE Subjective Patient information: Note initiated : 01/15/21 at 6:55 am Patient: Branden Espinosa 60 y/o M admitted on 01/14/21 for LOW bp. Chief Complaint: Weakness Pertinent ROS: Weakness No significant edema Oliguria Constitutional Vitals: Vital Signs Temp Pulse Resp BP Pulse Ox 98 F 78 16 94/60 96 01/15/21 04:01 01/14/21 14:37 01/15/21 05:29 01/15/21 05:29 01/15/21 05:29 Period Temp Pulse Resp BP Sys/Andujar Pulse Ox Last 24 Hr 96.4 F-98.4 F 73-97 12-31 67-119/37-85 83-100 Intake and Output 01/14/21 01/15/21 01/15/21 21:59 05:59 13:59 Intake Total 1085 911 Output Total 500 Balance 585 911 Weight 347 lb Intake & Output: Intake & Output 01/14/21 01/15/21 01/15/21 21:59 05:59 13:59 Intake Total 1085 911 Output Total 500 Balance 585 911 Weight 347 lb Intake: IV 500 491 Sodium Chloride 0.9% 250 ml @ 500 246 20 mls/hr IV .[id number] ANGELA Rx#: [id number] Levophed 16 mg In Sodium 245 Chloride 0.9% 234 ml @ 10 MCG/ MIN 9.375 mls/hr IV Q24H ANGELA Rx #:[id number] Oral 585 420 Output: Hemodialysis UF 500 Other: Meal Dinner Percent of Meal Consumed 100% Feeding Ability Independent General appearance: cooperative and no acute distress Head Head exam: Present atraumatic and normal inspection Respiratory Respiratory exam: Present decreased breath sounds Cardiovascular Cardiovascular exam: Present normal rate and rhythm GI/Abdominal GI/Abdominal exam: Present soft Neurological Exam Neurological exam: Present alert and oriented X3 Psychiatric Psychiatric exam: Present normal affect and normal mood Skin Skin exam: Present pallor A/P Assessment and plan (1) ESRD (end stage renal disease) on dialysis: Assessment and plan: Branden Espinosa is a 60-year-old male with end-stage renal disease on chronic hemodialysis (through right IJ tunneled hemodialysis catheter, on TTS), atrial fibrillation, congestive heart failure, sleep apnea on CPAP, pulmonary hypertension, cor pulmonale, morbid obesity admitted on 01/13/21. He presented to ED for weakness. In ED, he was hypotensive with anemia, hyponatremia and hypokalemia. Influenza B was positive. He received 500 mL of NS and was admitted to ICU on IV pressors. End-stage renal disease on chronic hemodialysis. Chronic anemia due to ESRD. Persistent hypotension. Echo report pending. Progress: Last hemodialysis on 01/14/21 with F180 dialyzer for 3 hours without UF. In ICU on IV pressors. Anemia. Plan: Next hemodialysis tomorrow then continue TTS schedule. PRBC for Hb<7.0. Status: Chronic (2) Anemia in ESRD (end-stage renal disease): Status: Chronic (3) Hyponatremia with decreased serum osmolality: Status: Chronic Time Spent With Patient Time: Total time spent is greater than 50% in coordination of care (as documented) at patient's floor/unit and/or counseling patient:
[2021-01-15] MEDS: LEVOTHYROXINE 50 MCG TABLET PO SCH (08:13)
[2021-01-15] MEDS: THIAMINE 100 MG TABLET PO SCH (08:18)
[2021-01-15] MEDS: MIDODRINE 5 MG TABLET PO SCH ×3 (08:18→17:52)
[2021-01-15] MEDS: PANTOPRAZOLE 40 MG TABLET PO SCH ×2 (08:19→17:53)
[2021-01-15] MEDS: FOLIC ACID 1 MG TABLET PO SCH (08:19)
[2021-01-15] MEDS: MULTIVIT,THER IRON,CA,FA & MIN 1 TABLET PO SCH (08:19)
[2021-01-15] MEDS: AMIODARONE HCL 200 MG TABLET PO SCH (08:19)
[2021-01-15] MEDS: DOCUSATE SODIUM 100 MG CAPSULE PO SCH ×2 (08:19→20:27)
[2021-01-15] MEDS: ALLOPURINOL 100 MG TABLET PO SCH (08:20)
[2021-01-15] MEDS: KETOCONAZOLE 2% TOP CRM 15GM TUBE TOPICAL SCH (08:21)
[2021-01-15] MEDS: APIXABAN 5 MG TABLET PO SCH ×2 (08:31→20:27)
[2021-01-15 08:54] LABS: Basophils # (Auto) 0.02 K/mcL (0.00-0.20); Basophils % (Auto) 0.3 % (0.0-2.0); Eosinophils # (Auto) 0.23 K/mcL (0.00-0.70); Hematocrit 24.2 % (41.0-55.0); Hemoglobin 7.7 g/dL (13.5-16.5); Lymphocytes # (Auto) 1.12 K/mcL (1.50-4.80); Lymphocytes % (Auto) 14.6 % (15.0-49.0); Mean Corpuscular HGB Conc 31.8 g/dL (31.0-36.0); Mean Platelet Volume 9.4 fL (7.4-10.4); Monocytes # (Auto) 0.65 K/mcL (0.10-0.90); Monocytes % (Auto) 8.5 % (1.0-12.0); Neutrophils % (Auto) 73.6 % (38.0-78.0); Platelet Count 226 K/mcL (140-440); RBC 2.24 M/mcL (4.50-5.90); Red Cell Distribution Width 17.9 % (11.5-14.5); WBC 7.7 K/mcL (4.5-11.0)
[2021-01-15] MEDS ORDERED: DIGOXIN 125 MCG TABLET PO ONE (09:13)
[2021-01-15 09:15] LABS: ALT/SGPT 5 U/L (<40); AST/SGOT 23 U/L (<40); Albumin 2.7 gm/dL (3.2-5.2); Albumin/Globulin Ratio 0.5 (1.0-2.3); Alkaline Phosphatase 150 U/L (39-117); Bilirubin,Direct 0.6 mg/dL (<0.3); Bilirubin,Total 1.1 mg/dL (0.1-1.0); Blood Urea Nitrogen 27 mg/dL (8-23); Calcium 8.5 mg/dL (8.6-10.4); Carbon Dioxide 26 mmol/L (22-30); Chloride 96 mmol/L (96-108); Globulin 5.4 gm/dL (2.2-3.7); Glomerular Filtration Rate 17; Glucose 90 mg/dL (70-105); Lactate Dehydrogenase 165 U/L (135-225); Phosphorous 4.2 mg/dL (2.5-4.5); Triglycerides 121 mg/dL (<150); Uric Acid 3.4 mg/dL (2.5-8.0)
[2021-01-15] MEDS: HYDROcodone/APAP 10/325MG TABLET PO PRN (10:15)
--- NOTE | 2021-01-15 11:11 | Internal Med Progress Note ---
SUBJECTIVE Subjective Patient information: Note initiated : 01/15/21 at 11:06 am Service Date, if different from initiated Date: [] Patient: Branden Espinosa a 60 y/o M admitted on 01/14/21 for LOW bp. Chief Complaint: [] Interval history: 01/13 Mr. Espinosa is a 60 year old M with a history of end-stage renal disease on hemodialysis since October, atrial fibrillation, congestive heart failure, pulmonary hypertension and cor pulmonale, morbid obesity not feeling well with slurred speech. Patient states that he is feeling well up until he got his 9 PM medications. He notes that there were medications given at that time which he did not recognize. About 1 hour later at 10 PM last evening his coordination became poor, felt he had poor strength in his hands, his speech became slurred and slowed. He is transported to the ED. Patient feels that he received an inappropriate medication which may be affecting him. Evaluation at that time showed his speech a little slurred but equal strength. He received 500 mL of NS for low blood pressures, with systolics 70s80s. He was mildly hypokalemic which was repleted without change in symptoms. He received his usual hemodialysis on Wednesday, onset of symptoms were Wednesday evening. In spite of observation, the patient did not fully improve and he remained with low blood pressures (his normal systolic he tells me runs from 83-113). He still feels his speech is slightly slurred. Screening for respiratory viruses prior to admission showed a positive influenza B antigen. Patient is being adm itted for further evaluation of hypotension, mild neurologic symptoms possibly secondary to inadvertent medication toxicity or influenza. 01/14 No complaints this morning. Remains on peripheral norepinephrine to maintain blood pressure. No fevers, no chills. No respiratory symptoms, no myalgias. 01/15-patient remains on Levophed at 12 mics. Nephrology on board. Ongoing ultrafiltration/dialysis per nephrology. Feels lightheaded with systolics around mid 80s. Started on midodrine.Unable to participate physical therapy due to profound weakness. Patient has been bedbound for the last few months. Case management coordinating transfer back to [facility] once patient clinically stable. Constitutional Vitals: Vital Signs Temp Pulse Resp BP Pulse Ox 98.1 F 78 20 84/54 98 01/15/21 08:00 01/14/21 14:37 01/15/21 08:05 01/15/21 08:00 01/15/21 08:05 Period Temp Pulse Resp BP Sys/Andujar Pulse Ox Last 24 Hr 96.4 F-98.4 F 73-97 12-31 67-119/38-85 92-100 Intake and Output 01/14/21 01/15/21 01/15/21 21:59 05:59 13:59 Intake Total 1085 911 Output Total 500 Balance 585 911 Weight 157.397 kg Alert oriented Nonlabored breathing No telemetry events Intake & Output: Intake & Output 01/14/21 01/15/21 01/15/21 21:59 05:59 13:59 Intake Total 1085 911 Output Total 500 Balance 585 911 Weight 157.397 kg Intake: IV 500 491 Sodium Chloride 0.9% 250 ml @ 500 246 20 mls/hr IV .[id number] ANGELA Rx#: [id number] Levophed 16 mg In Sodium 245 Chloride 0.9% 234 ml @ 10 MCG/ MIN 9.375 mls/hr IV Q24H ANGELA Rx #:[id number] Oral 585 420 Output: Hemodialysis UF 500 Other: Meal Dinner Percent of Meal Consumed 100% Feeding Ability Independent OBJ DATA Labs CBC & Chem 7: 01/15/21 08:08 01/15/21 08:08 Labs: Abnormal Lab Results 01/15/21 01/15/21 01/14/21 08:08 08:08 06:04 RBC 2.24 L Hgb 7.7 L Hct 24.2 L MCV 108.0 H MCH 34.4 H RDW 17.9 H Lymph % (Auto) 14.6 L Lymph # (Auto) 1.12 L Sodium 130 L 131 L Potassium Chloride 93 L BUN 27 H 37 H Creatinine 3.6 H 4.6 H Glucose Calcium 8.5 L 8.3 L Phosphorus 5.5 H Total Bilirubin 1.1 H 1.2 H Direct Bilirubin 0.6 H 0.6 H Alkaline Phosphatase 150 H 148 H Albumin 2.7 L 2.5 L Globulin 5.4 H 5.5 H Albumin/Globulin Ratio 0.5 L 0.5 L 01/14/21 01/13/21 01/13/21 06:04 09:00 09:00 RBC 2.27 L 2.03 L Hgb 7.7 L 7.0 L* Hct 24.7 L 21.9 L MCV 108.8 H 107.9 H MCH 34.5 H RDW 17.5 H 17.8 H Lymph % (Auto) Lymph # (Auto) 1.44 L 1.25 L Sodium 131 L Potassium Chloride 92 L BUN 28 H Creatinine 4.2 H Glucose Calcium 8.4 L Phosphorus Total Bilirubin 1.1 H Direct Bilirubin Alkaline Phosphatase 139 H Albumin 2.3 L Globulin 5.3 H Albumin/Globulin Ratio 0.4 L 01/12/21 01/12/21 23:38 23:38 RBC 2.13 L Hgb 7.2 L Hct 23.0 L MCV 108.0 H MCH RDW 17.9 H Lymph % (Auto) Lymph # (Auto) Sodium 130 L Potassium 3.2 L Chloride 91 L BUN 25 H Creatinine 3.9 H Glucose 124 H Calcium Phosphorus Total Bilirubin Direct Bilirubin Alkaline Phosphatase 142 H Albumin 2.6 L Globulin 5.2 H Albumin/Globulin Ratio 0.5 L Meds: Medications Acetaminophen (Acetaminophen 325 Mg Tablet) 650 mg PO Q6HP PRN; Protocol PRN Reason: Per Pain Protocol/Fever > 101 Hydrocodone Bitart/Acetaminophen (Hydrocodone/Apap 10/325mg Tablet) 1 - 2 tab PO Q6HP PRN; Protocol PRN Reason: Pain Last Admin: 01/15/21 10:15 Dose: 1 tab Documented by: Allopurinol (Allopurinol 100 Mg Tablet) 200 mg PO QDAY [facility] Last Admin: 01/15/21 08:20 Dose: 200 mg Documented by: Amiodarone HCl (Amiodarone Hcl 200 Mg Tablet) 200 mg PO QDAY [facility] Last Admin: 01/15/21 08:19 Dose: 200 mg Documented by: Apixaban (Apixaban 5 Mg Tablet) 5 mg PO BID [facility] Last Admin: 01/15/21 08:31 Dose: 5 mg Documented by: Bisacodyl (Bisacodyl 10 Mg Supp.Rect) 10 mg [place] DAILYP PRN PRN Reason: Constipation Calcium Carbonate/Glycine (Calcium Carbonate 500 Mg Tab.Chew) 1,000 mg PO Q6HP PRN PRN Reason: Heartburn Docusate Sodium (Docusate Sodium 100 Mg Capsule) 100 mg PO BID [facility] Last Admin: 01/15/21 08:19 Dose: 100 mg Documented by: Folic Acid (Folic Acid 1 Mg Tablet) 1 mg PO QDAY [facility] Last Admin: 01/15/21 08:19 Dose: 1 mg Documented by: Sodium Chloride (Sodium Chloride 0.9%) 250 mls @ 20 mls/hr IV .[id number] [facility] Last Admin: 01/15/21 05:13 Dose: 20 mls/hr Documented by: Norepinephrine Bitartrate 16 (mg/ Sodium Chloride) 250 mls @ 9.375 mls/hr IV Q24H [facility]; Protocol Last Admin: 01/15/21 05:13 Dose: 12 mcg/min, 11.25 mls/hr Documented by: Iron Carb/Multivit/Control Room Agent/Folic Acid (Multivit,Ther Iron,Ca,Fa & Min 1 Tablet) 1 tab PO DAILY [facility] Last Admin: 01/15/21 08:19 Dose: 1 tab Documented by: Ketoconazole (Ketoconazole 2% Top Crm 15gm Tube) 1 dose TOPICAL DAILY [facility] Last Admin: 01/15/21 08:21 Dose: Not Given Documented by: Lactulose (Lactulose 20 Gm/30 Ml Oral.Clarice) 10 gm PO DAILYP PRN PRN Reason: Constipation Levothyroxine Sodium (Levothyroxine 50 Mcg Tablet) 50 mcg PO QAMAC [facility] Last Admin: 01/15/21 08:13 Dose: 50 mcg Documented by: Midodrine (Midodrine 5 Mg Tablet) 10 mg PO TID@0800,1200,1700 [facility] Last Admin: 01/15/21 08:18 Dose: 10 mg Documented by: Naloxone HCl (Naloxone Hcl 0.4 Mg/Ml Vial) 0.1 mg IV Q2MIN PRN PRN Reason: Opiate Reversal Ondansetron HCl (Ondansetron 4 Mg/2 Ml Vial) 4 mg IV Q4HP PRN; Protocol PRN Reason: Nausea And Vomiting Pantoprazole Sodium (Pantoprazole 40 Mg Tablet) 40 mg PO BIDAC [facility] Last Admin: 01/15/21 08:19 Dose: 40 mg Documented by: Polyethylene Glycol (Polyethylene Glycol 3350 17 Gm Packet) 17 gm PO Q8HP PRN PRN Reason: Constipation Last Admin: 01/15/21 08:18 Dose: 17 gm Documented by: Senna (Sennosides 1 Tablet) 2 tab PO HSP PRN PRN Reason: Constipation Sodium Chloride (0.9 % Sodium Chloride 10 Ml Syringe) 10 ml IV Q8 [facility] Last Admin: 01/15/21 05:18 Dose: 10 ml Documented by: Thiamine HCl (Thiamine 100 Mg Tablet) 100 mg PO DAILY [facility] Last Admin: 01/15/21 08:18 Dose: 100 mg Documented by: A/P Assessment and plan (1) ESRD (end stage renal disease) on dialysis: Status: Chronic (2) Anemia in ESRD (end-stage renal disease): Status: Chronic (3) Hyponatremia with decreased serum osmolality: Status: Chronic Narrative A/P Narrative: 60-year-old male with end-stage renal disease, atrial fibrillation, heart failure, pulmonary hypertension and cor pulmonale presents with alteration in speech and dys-coordination. * Circulatory shock unclear etiology likely secondary to antihypertensive use. Currently on vasopressors. Ongoing hemodialysis per nephrology. No evidence of sepsis. Mentation improved. * Acute change mental status secondary to above clinically improved. * Influenza B without significant of acute viral syndrome. * Anemia: Hemoglobin in the low 7 range. On chronic apixaban. * ESRD: Dialyzes Wednesday, nephrology management * Atrial fibrillation rate controlled. Loaded on digoxin. On amiodarone * Congestive heart failure, currently well compensated * Cor pulmonale * Sleep apnea on CPAP at night * Morbid obesity Plan: * Continue vasopressors to keep MAP at goal and wean as tolerated * Continue amiodarone, start digoxin * CPAP at night * Droplet precautions * Oseltamavir, 30 mg at admit, then 30 mg following dialysis (will need to dose when he next gets hemodialysis) * HD per nephrology Prophylaxis: On apixaban chronically CODE STATUS: Full code Time Spent With Patient Time: critical care time 35 minutes QUALITY VTE Deep Vein Thrombosis/Pulmonary Embolism Present on Admission: No
[2021-01-16] MEDS: NOREPINEPHRINE BITARTRATE 16 MG in 0.9 % SODIUM CHLORIDE 234 ML IV SCH ×2 (01:52→21:11)
[2021-01-16] MEDS: 0.9 % SODIUM CHLORIDE 10 ML SYRINGE IV SCH ×3 (05:21→21:12)
--- NOTE | 2021-01-16 07:13 | Nephrology Progress Note ---
SUBJECTIVE Subjective Patient information: Note initiated : 01/16/21 at 7:09 am Patient: Branden Espinosa 60 y/o M admitted on 01/14/21 for LOW bp. Chief Complaint: Weakness Pertinent ROS: Weakness No shortness of breath No pain Constitutional Vitals: Vital Signs Temp Pulse Resp BP Pulse Ox 97.7 F 78 16 104/63 92 01/16/21 04:23 01/14/21 14:37 01/16/21 06:00 01/16/21 06:00 01/16/21 06:00 Period Temp Pulse Resp BP Sys/Andujar Pulse Ox Last 24 Hr 97.4 F-98.9 F 12-31 71-112/44-78 86-100 Intake and Output 01/15/21 01/16/21 01/16/21 21:59 05:59 13:59 Intake Total 670 693 Balance 670 693 Weight 355 lb 9.6 oz Intake & Output: Intake & Output 01/15/21 01/16/21 01/16/21 21:59 05:59 13:59 Intake Total 670 693 Balance 670 693 Weight 355 lb 9.6 oz Intake: IV 250 253 Sodium Chloride 0.9% 250 ml @ 250 20 mls/hr IV .[id number] ANGELA Rx#: [id number] Levophed 16 mg In Sodium 253 Chloride 0.9% 234 ml @ 10 MCG/ MIN 9.375 mls/hr IV Q24H ANGELA Rx #:[id number] Oral 420 440 Other: Meal Lunch Dinner Percent of Meal Consumed 75% 100% General appearance: morbidly obese and no acute distress Head Head exam: Present atraumatic and normal inspection Respiratory Respiratory exam: Present decreased breath sounds Cardiovascular Cardiovascular exam: Present irregular rhythm GI/Abdominal GI/Abdominal exam: Present soft Neurological Exam Neurological exam: Present alert and oriented X3 Psychiatric Psychiatric exam: Present normal affect and normal mood Skin Skin exam: Present pallor A/P Assessment and plan (1) ESRD (end stage renal disease) on dialysis: Assessment and plan: Branden Espinosa is a 60-year-old male with end-stage renal disease on chronic hemodialysis (through right IJ tunneled hemodialysis catheter, on TTS), atrial fibrillation, congestive heart failure, sleep apnea on CPAP, pulmonary hypertension, cor pulmonale, morbid obesity admitted on 01/13/21. He presented to ED for weakness. In ED, he was hypotensive with anemia, hyponatremia and hypokalemia. Influenza B was positive. He received 500 mL of NS and was admitted to ICU on IV pressors. End-stage renal disease on chronic hemodialysis. Chronic anemia due to ESRD. Influenza type B. Persistent hypotension. Workup: Echo on 01/14/21: LVEF 55%. Progress: Last hemodialysis on 01/14/21 with F180 dialyzer for 3 hours without UF. In ICU on IV pressors. Plan: Hemodialysis today with 1-2 kg UF then continue TTS schedule. The patient seen and evaluated during hemodialysis. Tolerating well so far. Still on IV NE. Aranesp 100 mvg IV x 1 for chronic anemia due to ESRD. PRBC for Hb<7.0. Status: Chronic (2) Anemia in ESRD (end-stage renal disease): Status: Chronic (3) Hyponatremia with decreased serum osmolality: Status: Chronic Time Spent With Patient Time: Total time spent is greater than 50% in coordination of care (as documented) at patient's floor/unit and/or counseling patient:
[2021-01-16 07:15] LABS: ALT/SGPT 6 U/L (<40); AST/SGOT 27 U/L (<40); Albumin 2.3 gm/dL (3.2-5.2); Albumin/Globulin Ratio 0.4 (1.0-2.3); Alkaline Phosphatase 154 U/L (39-117); Bilirubin,Direct 0.6 mg/dL (<0.3); Blood Urea Nitrogen 37 mg/dL (8-23); Calcium 8.7 mg/dL (8.6-10.4); Carbon Dioxide 22 mmol/L (22-30); Chloride 96 mmol/L (96-108); Globulin 5.6 gm/dL (2.2-3.7); Glomerular Filtration Rate 13; Glucose 82 mg/dL (70-105); Lactate Dehydrogenase 194 U/L (135-225); Phosphorous 4.3 mg/dL (2.5-4.5); Triglycerides 114 mg/dL (<150); Uric Acid 4.2 mg/dL (2.5-8.0)
[2021-01-16] MEDS: 0.9 % SODIUM CHLORIDE 250 ML IV SCH ×2 (08:07→20:40)
[2021-01-16] MEDS: MIDODRINE 5 MG TABLET PO SCH ×3 (08:58→17:23)
[2021-01-16] MEDS ORDERED: DARBEPOETIN ALFA 100 MCG/ML VIAL IV ONE (11:00)
[2021-01-16] MEDS: ALLOPURINOL 100 MG TABLET PO SCH (12:33)
[2021-01-16] MEDS: AMIODARONE HCL 200 MG TABLET PO SCH (12:33)
[2021-01-16] MEDS: PANTOPRAZOLE 40 MG TABLET PO SCH ×2 (12:33→17:23)
[2021-01-16] MEDS: THIAMINE 100 MG TABLET PO SCH (12:34)
[2021-01-16] MEDS: APIXABAN 5 MG TABLET PO SCH ×2 (12:34→20:09)
[2021-01-16] MEDS: FOLIC ACID 1 MG TABLET PO SCH (12:34)
[2021-01-16] MEDS: DOCUSATE SODIUM 100 MG CAPSULE PO SCH ×2 (12:34→20:09)
[2021-01-16] MEDS: LEVOTHYROXINE 50 MCG TABLET PO SCH (12:34)
[2021-01-16] MEDS: HYDROcodone/APAP 10/325MG TABLET PO PRN ×2 (12:41→20:09)
[2021-01-16] MEDS: MULTIVIT,THER IRON,CA,FA & MIN 1 TABLET PO SCH (12:42)
[2021-01-16] MEDS ORDERED: OSELTAMIVIR PHOSPHATE 30 MG CAPSULE PO ONE (13:00)
--- NOTE | 2021-01-16 13:48 | Internal Med Progress Note ---
SUBJECTIVE Subjective Patient information: Note initiated : 01/16/21 at 1:40 pm Service Date, if different from initiated Date: [] Patient: Branden Espinosa a 60 y/o M admitted on 01/14/21 for LOW bp. Chief Complaint: [] Interval history: 01/13 Mr. Espinosa is a 60 year old M with a history of end-stage renal disease on hemodialysis since October, atrial fibrillation, congestive heart failure, pulmonary hypertension and cor pulmonale, morbid obesity not feeling well with slurred speech. Patient states that he is feeling well up until he got his 9 PM medications. He notes that there were medications given at that time which he did not recognize. About 1 hour later at 10 PM last evening his coordination became poor, felt he had poor strength in his hands, his speech became slurred and slowed. He is transported to the ED. Patient feels that he received an inappropriate medication which may be affecting him. Evaluation at that time showed his speech a little slurred but equal strength. He received 500 mL of NS for low blood pressures, with systolics 70s80s. He was mildly hypokalemic which was repleted without change in symptoms. He received his usual hemodialysis on Wednesday, onset of symptoms were Wednesday evening. In spite of observation, the patient did not fully improve and he remained with low blood pressures (his normal systolic he tells me runs from 83-113). He still feels his speech is slightly slurred. Screening for respiratory viruses prior to admission showed a positive influenza B antigen. Patient is being admi tted for further evaluation of hypotension, mild neurologic symptoms possibly secondary to inadvertent medication toxicity or influenza. 01/14 No complaints this morning. Remains on peripheral norepinephrine to maintain blood pressure. No fevers, no chills. No respiratory symptoms, no myalgias. 01/15-patient remains on Levophed at 12 mics. Nephrology on board. Ongoing ultrafiltration/dialysis per nephrology. Feels lightheaded with systolics around mid 80s. Started on midodrine.Unable to participate physical therapy due to profound weakness. Patient has been bedbound for the last few months. Case management coordinating transfer back to [facility] once patient clinically stable. 01/16-continue to wean Levophed. Map at goal. Currently on 5 mics. Improved rate controlled following digoxin load. Ongoing hemodialysis. Patient feels slightly dizzy but better than previous day. White count stable at 7.7. Hemoglobin 7.7, sodium 130. No overnight fever chills. Anticipate discharge once systolic stable and off pressors. Likely in 48 hours. On Tamiflu. Received Aranesp today. Constitutional Vitals: Vital Signs Temp Pulse Resp BP Pulse Ox 96.9 F L 87 20 109/61 97 01/16/21 11:45 01/16/21 11:45 01/16/21 10:49 01/16/21 11:45 01/16/21 10:49 Period Temp Pulse Resp BP Sys/Andujar Pulse Ox Last 24 Hr 96.8 F-98.9 F 73-120 10-28 77-117/49-78 86-100 Intake and Output 01/15/21 01/16/21 01/16/21 21:59 05:59 13:59 Intake Total 670 693 588 Output Total 2400 Balance 670 693 -1812 Weight 161.297 kg Alert oriented, no labored breathing Nondistended abdomen No lymphedema No telemetry events Intake & Output: Intake & Output 01/15/21 01/16/21 01/16/21 21:59 05:59 13:59 Intake Total 670 693 588 Output Total 2400 Balance 670 693 -1812 Weight 161.297 kg Intake: IV 250 253 288 Sodium Chloride 0.9% 250 ml @ 250 250 20 mls/hr IV .[id number] ANGELA Rx#: [id number] Levophed 16 mg In Sodium 253 38 Chloride 0.9% 234 ml @ 10 MCG/ MIN 9.375 mls/hr IV Q24H ANGELA Rx #:[id number] Oral 420 440 300 Output: Hemodialysis UF 2400 Other: Meal Lunch Dinner Percent of Meal Consumed 75% 100% OBJ DATA Labs CBC & Chem 7: 01/15/21 08:08 01/16/21 05:43 Labs: Abnormal Lab Results 01/16/21 01/15/21 01/15/21 05:43 08:08 08:08 RBC 2.24 L Hgb 7.7 L Hct 24.2 L MCV 108.0 H MCH 34.4 H RDW 17.9 H Lymph % (Auto) 14.6 L Lymph # (Auto) 1.12 L Sodium 130 L 130 L Chloride BUN 37 H 27 H Creatinine 4.4 H 3.6 H Calcium 8.5 L Phosphorus Total Bilirubin 1.1 H Direct Bilirubin 0.6 H 0.6 H Alkaline Phosphatase 154 H 150 H Albumin 2.3 L 2.7 L Globulin 5.6 H 5.4 H Albumin/Globulin Ratio 0.4 L 0.5 L 01/14/21 01/14/21 06:04 06:04 RBC 2.27 L Hgb 7.7 L Hct 24.7 L MCV 108.8 H MCH RDW 17.5 H Lymph % (Auto) Lymph # (Auto) 1.44 L Sodium 131 L Chloride 93 L BUN 37 H Creatinine 4.6 H Calcium 8.3 L Phosphorus 5.5 H Total Bilirubin 1.2 H Direct Bilirubin 0.6 H Alkaline Phosphatase 148 H Albumin 2.5 L Globulin 5.5 H Albumin/Globulin Ratio 0.5 L Meds: Medications Acetaminophen (Acetaminophen 325 Mg Tablet) 650 mg PO Q6HP PRN; Protocol PRN Reason: Per Pain Protocol/Fever > 101 Hydrocodone Bitart/Acetaminophen (Hydrocodone/Apap 10/325mg Tablet) 1 - 2 tab PO Q6HP PRN; Protocol PRN Reason: Pain Last Admin: 01/16/21 12:41 Dose: 1 tab Documented by: Allopurinol (Allopurinol 100 Mg Tablet) 200 mg PO QDAY [facility] Last Admin: 01/16/21 12:33 Dose: 200 mg Documented by: Amiodarone HCl (Amiodarone Hcl 200 Mg Tablet) 200 mg PO QDAY [facility] Last Admin: 01/16/21 12:33 Dose: 200 mg Documented by: Apixaban (Apixaban 5 Mg Tablet) 5 mg PO BID [facility] Last Admin: 01/16/21 12:34 Dose: 5 mg Documented by: Bisacodyl (Bisacodyl 10 Mg Supp.Rect) 10 mg [place] DAILYP PRN PRN Reason: Constipation Calcium Carbonate/Glycine (Calcium Carbonate 500 Mg Tab.Chew) 1,000 mg PO Q6HP PRN PRN Reason: Heartburn Docusate Sodium (Docusate Sodium 100 Mg Capsule) 100 mg PO BID [facility] Last Admin: 01/16/21 12:34 Dose: 100 mg Documented by: Folic Acid (Folic Acid 1 Mg Tablet) 1 mg PO QDAY [facility] Last Admin: 01/16/21 12:34 Dose: 1 mg Documented by: Sodium Chloride (Sodium Chloride 0.9%) 250 mls @ 20 mls/hr IV .[id number] [facility] Last Admin: 01/16/21 08:07 Dose: 20 mls/hr Documented by: Norepinephrine Bitartrate 16 (mg/ Sodium Chloride) 250 mls @ 9.375 mls/hr IV Q24H [facility]; Protocol Last Titration: 01/16/21 11:11 Dose: 5 mcg/min, 4.688 mls/hr Documented by: Iron Carb/Multivit/[place]/Folic Acid (Multivit,Ther Iron,Ca,Fa & Min 1 Tablet) 1 tab PO DAILY [facility] Last Admin: 01/16/21 12:42 Dose: 1 tab Documented by: Ketoconazole (Ketoconazole 2% Top Crm 15gm Tube) 1 dose TOPICAL DAILY [facility] Last Admin: 01/15/21 08:21 Dose: Not Given Documented by: Lactulose (Lactulose 20 Gm/30 Ml Oral.Clarice) 10 gm PO DAILYP PRN PRN Reason: Constipation Levothyroxine Sodium (Levothyroxine 50 Mcg Tablet) 50 mcg PO QAMAC [facility] Last Admin: 01/16/21 12:34 Dose: 50 mcg Documented by: Midodrine (Midodrine 5 Mg Tablet) 10 mg PO TID@0800,1200,1700 [facility] Last Admin: 01/16/21 12:33 Dose: 10 mg Documented by: Naloxone HCl (Naloxone Hcl 0.4 Mg/Ml Vial) 0.1 mg IV Q2MIN PRN PRN Reason: Opiate Reversal Ondansetron HCl (Ondansetron 4 Mg/2 Ml Vial) 4 mg IV Q4HP PRN; Protocol PRN Reason: Nausea And Vomiting Pantoprazole Sodium (Pantoprazole 40 Mg Tablet) 40 mg PO BIDAC [facility] Last Admin: 01/16/21 12:33 Dose: 40 mg Documented by: Polyethylene Glycol (Polyethylene Glycol 3350 17 Gm Packet) 17 gm PO Q8HP PRN PRN Reason: Constipation Last Admin: 01/15/21 08:18 Dose: 17 gm Documented by: Senna (Sennosides 1 Tablet) 2 tab PO HSP PRN PRN Reason: Constipation Sodium Chloride (0.9 % Sodium Chloride 10 Ml Syringe) 10 ml IV Q8 [facility] Last Admin: 01/16/21 05:21 Dose: 10 ml Documented by: Thiamine HCl (Thiamine 100 Mg Tablet) 100 mg PO DAILY [facility] Last Admin: 01/16/21 12:34 Dose: 100 mg Documented by: A/P Narrative A/P Narrative: 60-year-old male with end-stage renal disease, atrial fibrillation, heart failure, pulmonary hypertension and cor pulmonale presents with alteration in speech and dys-coordination. * Circulatory shock likely secondary to antihypertensive use. Currently on vasopressors. Weaning as tolerated down to 5 mics Levophed. Improved endorgan dysfunction * Acute change mental status endorgan manifestation due to shock. Clinically improved * Influenza B without significant of acute viral syndrome. On Tamiflu * Anemia: Hemoglobin in the low 7 range. On chronic apixaban. Received Aranesp per nephrology * ESRD: On dialysis per nephrology * Atrial fibrillation rate controlled. Rate much improved following digoxin administration. On amiodarone/anticoagulation on apixaban * Congestive heart failure, currently well compensated * Cor pulmonale * Sleep apnea on CPAP at night * Morbid obesity Plan: * Wean vasopressors as tolerated * Continue amiodarone * CPAP at night * Droplet precautions * Tamiflu * HD per nephrology Prophylaxis: On apixaban chronically CODE STATUS: Full code Time Spent With Patient Time: Total time spent is greater than 50% in coordination of care (as documented) at patient's floor/unit and/or counseling patient: QUALITY VTE Deep Vein Thrombosis/Pulmonary Embolism Present on Admission: No
[2021-01-16] MEDS: KETOCONAZOLE 2% TOP CRM 15GM TUBE TOPICAL SCH (17:21)
[2021-01-17] MEDS: 0.9 % SODIUM CHLORIDE 10 ML SYRINGE IV SCH ×3 (05:44→22:34)
[2021-01-17 07:21] LABS: Basophils # (Auto) 0.04 K/mcL (0.00-0.20); Basophils % (Auto) 0.7 % (0.0-2.0); Eosinophils # (Auto) 0.32 K/mcL (0.00-0.70); Eosinophils % (Auto) 5.5 % (0.0-7.0); Hematocrit 22.6 % (41.0-55.0); Hemoglobin 7.2 g/dL (13.5-16.5); Lymphocytes # (Auto) 1.49 K/mcL (1.50-4.80); Lymphocytes % (Auto) 25.6 % (15.0-49.0); Mean Cell Volume 106.6 fL (80.0-100.0); Mean Corpuscular HGB Conc 31.9 g/dL (31.0-36.0); Mean Platelet Volume 9.6 fL (7.4-10.4); Monocytes # (Auto) 0.59 K/mcL (0.10-0.90); Monocytes % (Auto) 10.2 % (1.0-12.0); Platelet Count 239 K/mcL (140-440); RBC 2.12 M/mcL (4.50-5.90); Red Cell Distribution Width 17.2 % (11.5-14.5); WBC 5.8 K/mcL (4.5-11.0)
[2021-01-17] MEDS: MIDODRINE 5 MG TABLET PO SCH ×3 (07:35→17:01)
[2021-01-17] MEDS: HYDROcodone/APAP 10/325MG TABLET PO PRN ×3 (07:35→20:18)
[2021-01-17] MEDS: LEVOTHYROXINE 50 MCG TABLET PO SCH (07:36)
[2021-01-17] MEDS: PANTOPRAZOLE 40 MG TABLET PO SCH ×2 (07:36→17:03)
[2021-01-17 07:49] LABS: ALT/SGPT 8 U/L (<40); AST/SGOT 31 U/L (<40); Albumin 2.2 gm/dL (3.2-5.2); Albumin/Globulin Ratio 0.4 (1.0-2.3); Alkaline Phosphatase 151 U/L (39-117); Bilirubin,Direct 0.4 mg/dL (<0.3); Bilirubin,Total 0.8 mg/dL (0.1-1.0); Blood Urea Nitrogen 27 mg/dL (8-23); Calcium 8.6 mg/dL (8.6-10.4); Carbon Dioxide 25 mmol/L (22-30); Chloride 97 mmol/L (96-108); Globulin 5.5 gm/dL (2.2-3.7); Glomerular Filtration Rate 16; Glucose 89 mg/dL (70-105); Lactate Dehydrogenase 161 U/L (135-225); Phosphorous 3.7 mg/dL (2.5-4.5); Triglycerides 125 mg/dL (<150); Uric Acid 3.5 mg/dL (2.5-8.0)
--- NOTE | 2021-01-17 08:14 | Nephrology Progress Note ---
SUBJECTIVE Subjective Patient information: Note initiated : 01/17/21 at 8:10 am Patient: Branden Espinosa 60 y/o M admitted on 01/14/21 for LOW bp. Chief Complaint: Weakness Pertinent ROS: Pale Weak Edema No chest pain No shortness of breath Constitutional Vitals: Vital Signs Temp Pulse Resp BP Pulse Ox 98.6 F 82 27 H 87/61 95 01/17/21 08:01 01/16/21 19:41 01/17/21 08:01 01/17/21 08:01 01/17/21 08:01 Period Temp Pulse Resp BP Sys/Andujar Pulse Ox Last 24 Hr 96.8 F-98.6 F 73-120 10-34 78-121/45-74 88-100 Intake and Output 01/16/21 01/17/21 01/17/21 21:59 05:59 13:59 Intake Total 400 802 7 Balance 400 802 7 Weight 353 lb 6.4 oz Intake & Output: Intake & Output 01/16/21 01/17/21 01/17/21 21:59 05:59 13:59 Intake Total 400 802 7 Balance 400 802 7 Weight 353 lb 6.4 oz Intake: Nourishment/Supplement quantity 10 (ml) IV 270 82 7 Sodium Chloride 0.9% 250 ml @ 250 20 mls/hr IV .[id number] ANGELA Rx#: [id number] Levophed 16 mg In Sodium 20 82 7 Chloride 0.9% 234 ml @ 10 MCG/ MIN 9.375 mls/hr IV Q24H ANGELA Rx #:[id number] Oral 120 720 Other: Meal Dinner Percent of Meal Consumed 100% Feeding Ability Independent Nourishment/Supplement name beth General appearance: morbidly obese and no acute distress Head Head exam: Present atraumatic and normal inspection Respiratory Respiratory exam: Present decreased breath sounds Cardiovascular Cardiovascular exam: Present irregular rhythm GI/Abdominal GI/Abdominal exam: Present soft Extremities Exam Extremities exam: Present pedal edema Neurological Exam Neurological exam: Present alert and oriented X3 Psychiatric Psychiatric exam: Present normal affect and normal mood Skin Skin exam: Present pallor A/P Assessment and plan (1) ESRD (end stage renal disease) on dialysis: Assessment and plan: Branden Espinosa is a 60-year-old male with end-stage renal disease on chronic hemodialysis (through right IJ tunneled hemodialysis catheter, on TTS), atrial fibrillation, congestive heart failure, sleep apnea on CPAP, pulmonary hypertension, cor pulmonale, morbid obesity admitted on 01/13/21. He presented to ED for weakness. In ED, he was hypotensive with anemia, hyponatremia and hypokalemia. Influenza B was positive. He received 500 mL of NS and was admitted to ICU on IV pressors. End-stage renal disease on chronic hemodialysis. Chronic anemia due to ESRD. Aranesp 100 mvg IV x 1 on 01/16/21 for chronic anemia due to ESRD. Influenza type B. Persistent hypotension. Workup: Echo on 01/14/21: LVEF 55%. Progress: Last hemodialysis on 01/16/21 with F180 dialyzer for 3 hours without UF. In ICU on IV pressors. Plan: Hemodialysis tomorrow with 2-3 kg UF then continue TTS schedule. 1 unit PRBC for symptomatic anemia (hypotension) with Hb 7.2. Status: Chronic (2) Anemia in ESRD (end-stage renal disease): Status: Chronic (3) Hyponatremia with decreased serum osmolality: Status: Chronic Time Spent With Patient Time: Total time spent is greater than 50% in coordination of care (as documented) at patient's floor/unit and/or counseling patient:
[2021-01-17] MEDS ORDERED: 0.9 % SODIUM CHLORIDE 250 ML IV SCH (08:15)
[2021-01-17] MEDS: NOREPINEPHRINE BITARTRATE 16 MG in 0.9 % SODIUM CHLORIDE 234 ML IV SCH (08:54)
[2021-01-17] MEDS: 0.9 % SODIUM CHLORIDE 250 ML IV SCH ×2 (08:54→22:33)
[2021-01-17] MEDS: KETOCONAZOLE 2% TOP CRM 15GM TUBE TOPICAL SCH (09:02)
[2021-01-17] MEDS: APIXABAN 5 MG TABLET PO SCH ×2 (09:24→20:18)
[2021-01-17] MEDS: AMIODARONE HCL 200 MG TABLET PO SCH (09:24)
[2021-01-17] MEDS: FOLIC ACID 1 MG TABLET PO SCH (09:24)
[2021-01-17] MEDS: ALLOPURINOL 100 MG TABLET PO SCH (09:24)
[2021-01-17] MEDS: MULTIVIT,THER IRON,CA,FA & MIN 1 TABLET PO SCH (09:24)
[2021-01-17] MEDS: DOCUSATE SODIUM 100 MG CAPSULE PO SCH ×3 (09:24→20:24)
[2021-01-17] MEDS: THIAMINE 100 MG TABLET PO SCH (09:25)
--- NOTE | 2021-01-17 11:03 | Internal Med Progress Note ---
SUBJECTIVE Subjective Patient information: Note initiated : 01/17/21 at 11:01 am Service Date, if different from initiated Date: [] Patient: Branden Espinosa a 60 y/o M admitted on 01/14/21 for LOW bp. Chief Complaint: [] Interval history: Mr. Espinosa is a 60 year old M with a history of end-stage renal disease on hemodialysis since October, atrial fibrillation, congestive heart failure, pulmonary hypertension and cor pulmonale, morbid obesity not feeling well with slurred speech. Patient states that he is feeling well up until he got his 9 PM medications. He notes that there were medications given at that time which he did not recognize. About 1 hour later at 10 PM last evening his coordination became poor, felt he had poor strength in his hands, his speech became slurred and slowed. He is transported to the ED. Patient feels that he received an inappropriate medication which may be affecting him. Evaluation at that time showed his s peech a little slurred but equal strength. He received 500 mL of NS for low blood pressures, with systolics 70s80s. He was mildly hypokalemic which was repleted without change in symptoms. He received his usual hemodialysis on Wednesday, onset of symptoms were Wednesday evening. In spite of observation, the patient did not fully improve and he remained with low blood pressures (his normal systolic he tells me runs from 83-113). He still feels his speech is slightly slurred. Screening for respiratory viruses prior to admission showed a positive influenza B antigen. Patient is being admitted for further evaluation of hypotension, mild neurologic symptoms possibly secondary to inadvertent medication toxicity or influenza. 01/14 No complaints this morning. Remains on peripheral norepinephrine to maintain blood pressure. No fevers, no chills. No respiratory symptoms, no myalgias. 01/15-patient remains on Levophed at 12 mics. Nephrology on board. Ongoing ultrafiltration/dialysis per nephrology. Feels lightheaded with systolics around mid 80s. Started on midodrine.Unable to participate physical therapy due to profound weakness. Patient has been bedbound for the last few months. Case management coordinating transfer back to [facility] once patient clinically stable. 01/16-continue to wean Levophed. Map at goal. Currently on 5 mics. Improved rate controlled following digoxin load. Ongoing hemodialysis. Patient feels slightly dizzy but better than previous day. White count stable at 7.7. Hemoglobin 7.7, sodium 130. No overnight fever chills. Anticipate discharge on ce systolic stable and off pressors. Likely in 48 hours. On Tamiflu. Received Aranesp today. 01/17-patient remains on Levophed at 10 mics. However gradually improving systolics. 1 unit PRBC transfusion today. Denies lightheadedness dizziness. No telemetry events. Ongoing hemodialysis Constitutional Vitals: Vital Signs Temp Pulse Resp BP Pulse Ox 98.6 F 82 23 H 89/53 97 01/17/21 08:01 01/16/21 19:41 01/17/21 10:16 01/17/21 10:16 01/17/21 10:16 Period Temp Pulse Resp BP Sys/Andujar Pulse Ox Last 24 Hr 96.9 F-98.6 F 73-96 11-34 66-121/45-74 88-100 Intake and Output 01/16/21 01/17/21 01/17/21 21:59 05:59 13:59 Intake Total 400 802 502 Balance 400 802 502 Weight 160.3 kg Alert oriented Nonlabored breathing No telemetry events Intake & Output: Intake & Output 01/16/21 01/17/21 01/17/21 21:59 05:59 13:59 Intake Total 400 802 502 Balance 400 802 502 Weight 160.3 kg Intake: Nourishment/Supplement quantity 10 (ml) IV 270 82 277 Sodium Chloride 0.9% 250 ml @ 250 245 20 mls/hr IV .[id number] ANGELA Rx#: [id number] Levophed 16 mg In Sodium 20 82 32 Chloride 0.9% 234 ml @ 10 MCG/ MIN 9.375 mls/hr IV Q24H ANGELA Rx #:[id number] Oral 120 720 225 Other: Meal Dinner Percent of Meal Consumed 100% Feeding Ability Independent Nourishment/Supplement name beth OBJ DATA Labs CBC & Chem 7: 01/17/21 06:30 01/17/21 06:30 Labs: Abnormal Lab Results 01/17/21 01/17/21 01/16/21 06:30 06:30 05:43 RBC 2.12 L Hgb 7.2 L Hct 22.6 L MCV 106.6 H MCH RDW 17.2 H Lymph % (Auto) Lymph # (Auto) 1.49 L Sodium 131 L 130 L BUN 27 H 37 H Creatinine 3.9 H 4.4 H Calcium Total Bilirubin Direct Bilirubin 0.4 H 0.6 H Alkaline Phosphatase 151 H 154 H Albumin 2.2 L 2.3 L Globulin 5.5 H 5.6 H Albumin/Globulin Ratio 0.4 L 0.4 L 01/15/21 01/15/21 08:08 08:08 RBC 2.24 L Hgb 7.7 L Hct 24.2 L MCV 108.0 H MCH 34.4 H RDW 17.9 H Lymph % (Auto) 14.6 L Lymph # (Auto) 1.12 L Sodium 130 L BUN 27 H Creatinine 3.6 H Calcium 8.5 L Total Bilirubin 1.1 H Direct Bilirubin 0.6 H Alkaline Phosphatase 150 H Albumin 2.7 L Globulin 5.4 H Albumin/Globulin Ratio 0.5 L Meds: Medications Acetaminophen (Acetaminophen 325 Mg Tablet) 650 mg PO Q6HP PRN; Protocol PRN Reason: Per Pain Protocol/Fever > 101 Hydrocodone Bitart/Acetaminophen (Hydrocodone/Apap 10/325mg Tablet) 1 - 2 tab PO Q6HP PRN; Protocol PRN Reason: Pain Last Admin: 01/17/21 07:35 Dose: 1 tab Documented by: Allopurinol (Allopurinol 100 Mg Tablet) [address] [facility] Last Admin: 01/17/21 09:24 Dose: 200 mg Documented by: Amiodarone HCl (Amiodarone Hcl 200 Mg Tablet) [address] [facility] Last Admin: 01/17/21 09:24 Dose: 200 mg Documented by: Apixaban (Apixaban 5 Mg Tablet) [address] [facility] Last Admin: 01/17/21 09:24 Dose: 5 mg Documented by: Bisacodyl (Bisacodyl 10 Mg Supp.Rect) 10 mg AK DAILYP PRN PRN Reason: Constipation Calcium Carbonate/Glycine (Calcium Carbonate 500 Mg Tab.Chew) 1,000 mg PO Q6HP PRN PRN Reason: Heartburn Docusate Sodium (Docusate Sodium 100 Mg Capsule) [address] [facility] Last Admin: 01/17/21 09:24 Dose: 100 mg Documented by: Folic Acid (Folic Acid 1 Mg Tablet) [address] [facility] Last Admin: 01/17/21 09:24 Dose: 1 mg Documented by: Sodium Chloride (Sodium Chloride 0.9%) 250 mls @ 20 mls/hr IV .[id number] [facility] Last Admin: 01/17/21 08:54 Dose: 20 mls/hr Documented by: Norepinephrine Bitartrate 16 (mg/ Sodium Chloride) 250 mls @ 9.375 mls/hr IV Q24H [facility]; Protocol Last Titration: 01/17/21 10:46 Dose: 8 mcg/min, 7.5 mls/hr Documented by: Sodium Chloride (Sodium Chloride 0.9%) 250 mls @ 20 mls/hr IV .[id number] [facility] Stop: 01/17/21 20:44 Iron Carb/Multivit/[place]/Folic Acid (Multivit,Ther Iron,Ca,Fa & Min 1 Tablet) [address] [facility] Last Admin: 01/17/21 09:24 Dose: 1 tab Documented by: Ketoconazole (Ketoconazole 2% Top Crm 15gm Tube) [address] [facility] Last Admin: 01/17/21 09:02 Dose: Not Given Documented by: Lactulose (Lactulose 20 Gm/30 Ml Oral.Clarice) 10 gm PO DAILYP PRN PRN Reason: Constipation Last Admin: 01/17/21 09:25 Dose: 10 gm Documented by: Levothyroxine Sodium (Levothyroxine 50 Mcg Tablet) [address] [facility] Last Admin: 01/17/21 07:36 Dose: 50 mcg Documented by: Midodrine (Midodrine 5 Mg Tablet) 10 mg PO TID@0800,1200,1700 [facility] Last Admin: 01/17/21 07:35 Dose: 10 mg Documented by: Naloxone HCl (Naloxone Hcl 0.4 Mg/Ml Vial) 0.1 mg IV Q2MIN PRN PRN Reason: Opiate Reversal Ondansetron HCl (Ondansetron 4 Mg/2 Ml Vial) 4 mg IV Q4HP PRN; Protocol PRN Reason: Nausea And Vomiting Pantoprazole Sodium (Pantoprazole 40 Mg Tablet) [address] [facility] Last Admin: 01/17/21 07:36 Dose: 40 mg Documented by: Polyethylene Glycol (Polyethylene Glycol 3350 17 Gm Packet) 17 gm PO Q8HP PRN PRN Reason: Constipation Last Admin: 01/15/21 08:18 Dose: 17 gm Documented by: Senna (Sennosides 1 Tablet) 2 tab PO HSP PRN PRN Reason: Constipation Sodium Chloride (0.9 % Sodium Chloride 10 Ml Syringe) [address] [facility] Last Admin: 01/17/21 05:44 Dose: 10 ml Documented by: Thiamine HCl (Thiamine 100 Mg Tablet) [address] [facility] Last Admin: 01/17/21 09:25 Dose: 100 mg Documented by: A/P Narrative A/P Narrative: 60-year-old male with end-stage renal disease, atrial fibrillation, heart fa ilure, pulmonary hypertension and cor pulmonale presents with alteration in speech and dys-coordination. * Circulatory shock likely secondary to antihypertensive use. Currently on Levophed weaning as tolerated. * Acute change mental status endorgan manifestation due to shock. Fully resolved * Influenza B without significant of acute viral syndrome. On Tamiflu * Anemia: PRBC transfusion today * ESRD: On dialysis per nephrology * Atrial fibrillation rate controlled. Rate much improved following digoxin administration. On amiodarone/anticoagulation on apixaban * Congestive heart failure, currently well compensated * Cor pulmonale * Sleep apnea on CPAP at night * Morbid obesity Plan: * Continue weaning vasopressors as tolerated * PRBC transfusion * Continue amiodarone * CPAP at night * HD per nephrology * Discharge once off pressors Prophylaxis: On apixaban chronically CODE STATUS: Full code Time Spent With Patient Time: Total time spent is greater than 50% in coordination of care (as documented) at patient's floor/unit and/or counseling patient: QUALITY VTE Deep Vein Thrombosis/Pulmonary Embolism Present on Admission: No
[2021-01-18] MEDS: 0.9 % SODIUM CHLORIDE 10 ML SYRINGE IV SCH ×3 (05:28→20:31)
[2021-01-18] MEDS: HYDROcodone/APAP 10/325MG TABLET PO PRN ×3 (06:31→18:07)
[2021-01-18] MEDS: MIDODRINE 5 MG TABLET PO SCH ×3 (07:11→17:39)
--- NOTE | 2021-01-18 07:30 | Nephrology Progress Note ---
SUBJECTIVE Subjective Patient information: Note initiated : 01/18/21 at 7:28 am Patient: Branden Espinosa 60 y/o M admitted on 01/14/21 for LOW bp. Chief Complaint: Weakness Pertinent ROS: Constitutional: Present lethargy and weakness Eyes: Absent blurry vision Nose, mouth and throat: Absent nasal congestion and sore throat Cardiovascular: Present edema; Absent chest pain Respiratory: Absent cough and dyspnea Gastrointestinal: Absent nausea and vomiting Integumentary: Present dry skin; Absent rash Neurological: Present weakness; Absent confusion Psychiatric: Absent anxiety and panic attacks Hematologic/Lymphatic: Absent easy bleeding and easy bruising Allergic/Immunologic: Absent tongue swelling and uticaria Constitutional Vitals: Vital Signs Temp Pulse Resp BP Pulse Ox 98.4 F 81 15 98/55 97 01/18/21 04:01 01/17/21 21:51 01/18/21 05:58 01/18/21 05:31 01/18/21 05:58 Period Temp Pulse Resp BP Sys/Andujar Pulse Ox Last 24 Hr 97.8 F-98.6 F 72-116 10-29 66-112/34-83 82-100 Intake and Output 01/17/21 01/18/21 01/18/21 21:59 05:59 13:59 Intake Total 512 575 48 Balance 512 575 48 Weight 352 lb 12.8 oz Intake & Output: Intake & Output 01/17/21 01/18/21 01/18/21 21:59 05:59 13:59 Intake Total 512 575 48 Balance 512 575 48 Weight 352 lb 12.8 oz Intake: IV 272 48 Sodium Chloride 0.9% 250 ml @ 250 20 mls/hr IV .[id number] [facility] Rx#: [id number] Levophed 16 mg In Sodium 22 48 Chloride 0.9% 234 ml @ 10 MCG/ MIN 9.375 mls/hr IV Q24H [facility] Rx #:[id number] Oral 240 575 Other: Meal Lunch Percent of Meal Consumed 100% Feeding Ability Independent Stool Size Large Stool Color Brown Stool Consistency Formed # Bowel Movements 1 # of times incontinent of 0 Bowels Additional findings Additional findings: General appearance: morbidly obese and no acute distress Head exam: Present atraumatic and normal inspection Respiratory exam: Present decreased breath sounds Cardiovascular exam: Present irregular rhythm GI/Abdominal exam: Present soft Extremities exam: Present pedal edema Neurological exam: Present alert and oriented X3 Psychiatric exam: Present normal affect and normal mood Skin exam: Present pallor A/P Assessment and plan (1) ESRD (end stage renal disease) on dialysis: Assessment and plan: Branden Espinosa is a 60-year-old male with end-stage renal disease on chronic hemodialysis (through right IJ tunneled hemodialysis catheter, on TTS), atrial fibrillation, congestive heart failure, sleep apnea on CPAP, pulmonary hypertension, cor pulmonale, morbid obesity admitted on 01/13/21. He presented to ED for weakness. In ED, he was hypotensive with anemia, hyponatremia and hypokalemia. Influenza B was positive. He received 500 mL of NS and was admitted to ICU on IV pressors. End-stage renal disease on chronic hemodialysis. Chronic anemia due to ESRD. Aranesp 100 mcg IV x 1 on 01/16/21 for chronic anemia due to ESRD. 1 unit PRBC for symptomatic anemia (hypotension) with Hb 7.2 on 01/17/21. Influenza type B. Persistent hypotension. Workup: Echo on 01/14/21: LVEF 55%. Progress: Last hemodialysis on 01/16/21. In ICU on IV pressors. Plan: Hemodialysis today with 2-3 kg UF then continue TTS schedule. The patient seen and evaluated during hemodialysis. Wean off NE with a traget MAP of 60. Status: Chronic (2) Anemia in ESRD (end-stage renal disease): Status: Chronic (3) Hyponatremia with decreased serum osmolality: Status: Chronic Time Spent With Patient Time: Total time spent is greater than 50% in coordination of care (as documented) at patient's floor/unit and/or counseling patient:
[2021-01-18 08:09] LABS: Basophils # (Auto) 0.04 K/mcL (0.00-0.20); Basophils % (Auto) 0.7 % (0.0-2.0); Eosinophils # (Auto) 0.34 K/mcL (0.00-0.70); Eosinophils % (Auto) 5.7 % (0.0-7.0); Hematocrit 25.1 % (41.0-55.0); Hemoglobin 7.8 g/dL (13.5-16.5); Lymphocytes # (Auto) 1.55 K/mcL (1.50-4.80); Lymphocytes % (Auto) 26.1 % (15.0-49.0); Mean Cell Volume 108.2 fL (80.0-100.0); Mean Corpuscular HGB Conc 31.1 g/dL (31.0-36.0); Mean Platelet Volume 9.5 fL (7.4-10.4); Monocytes # (Auto) 0.49 K/mcL (0.10-0.90); Monocytes % (Auto) 8.2 % (1.0-12.0); Neutrophils % (Auto) 59.3 % (38.0-78.0); Platelet Count 274 K/mcL (140-440); RBC 2.32 M/mcL (4.50-5.90); Red Cell Distribution Width 17.7 % (11.5-14.5)
[2021-01-18 08:18] LABS: ALT/SGPT 11 U/L (<40); AST/SGOT 40 U/L (<40); Albumin 2.2 gm/dL (3.2-5.2); Albumin/Globulin Ratio 0.4 (1.0-2.3); Alkaline Phosphatase 157 U/L (39-117); Bilirubin,Direct 0.4 mg/dL (<0.3); Bilirubin,Total 0.8 mg/dL (0.1-1.0); Blood Urea Nitrogen 32 mg/dL (8-23); Calcium 8.8 mg/dL (8.6-10.4); Carbon Dioxide 24 mmol/L (22-30); Chloride 96 mmol/L (96-108); Globulin 5.8 gm/dL (2.2-3.7); Glomerular Filtration Rate 12; Glucose 88 mg/dL (70-105); Lactate Dehydrogenase 191 U/L (135-225); Phosphorous 4.6 mg/dL (2.5-4.5); Triglycerides 127 mg/dL (<150); Uric Acid 4.3 mg/dL (2.5-8.0)
--- NOTE | 2021-01-18 09:00 | Internal Med Progress Note ---
SUBJECTIVE Subjective Patient information: Note initiated : 01/18/21 at 8:57 am Service Date, if different from initiated Date: [] Patient: Branden Espinosa a 60 y/o M admitted on 01/14/21 for LOW bp. Chief Complaint: [] Interval history: Mr. Espinosa is a 60 year old M with a history of end-stage renal disease on hemodialysis since October, atrial fibrillation, congestive heart failure, pulmonary hypertension and cor pulmonale, morbid obesity not feeling well with slurred speech. Patient states that he is feeling well up until he got his 9 PM medications. He notes that there were medications given at that time which he did not recognize. About 1 hour later at 10 PM last evening his coordination became poor, felt he had poor strength in his hands, his speech became slurred and slowed. He is transported to the ED. Patient feels that he received an inappropriate medication which may be affecting him. Evaluation at that time showed his sp eech a little slurred but equal strength. He received 500 mL of NS for low blood pressures, with systolics 70s80s. He was mildly hypokalemic which was repleted without change in symptoms. He received his usual hemodialysis on Wednesday, onset of symptoms were Wednesday evening. In spite of observation, the patient did not fully improve and he remained with low blood pressures (his normal systolic he tells me runs from 83-113). He still feels his speech is slightly slurred. Screening for respiratory viruses prior to admission showed a positive influenza B antigen. Patient is being admitted for further evaluation of hypotension, mild neurologic symptoms possibly secondary to inadvertent medication toxicity or influenza. 01/14 No complaints this morning. Remains on peripheral norepinephrine to maintain blood pressure. No fevers, no chills. No respiratory symptoms, no myalgias. 01/15-patient remains on Levophed at 12 mics. Nephrology on board. Ongoing ultrafiltration/dialysis per nephrology. Feels lightheaded with systolics around mid 80s. Started on midodrine.Unable to participate physical therapy due to profound weakness. Patient has been bedbound for the last few months. Case management coordinating transfer back to [facility] once patient clinically stable. 01/16-continue to wean Levophed. Map at goal. Currently on 5 mics. Improved rate controlled following digoxin load. Ongoing hemodialysis. Patient feels slightly dizzy but better than previous day. White count stable at 7.7. Hemoglobin 7.7, sodium 130. No overnight fever chills. Anticipate discharge once systolic stable and off pressors. Likely in 48 hours. On Tamiflu. Received Aranesp today. 01/17-patient remains on Levophed at 10 mics. However gradually improving systolics. 1 unit PRBC transfusion today. Denies lightheadedness dizziness. No telemetry events. Ongoing hemodialysis 01/18-patient's hemodynamics improving now down to 3 mics of Levophed. Ongoing hemodialysis. Systolics mid 80s. However minimally symptomatic. Continue to wean as tolerated. No evidence of sepsis, white count 6000. Nephrology on board. Continue therapies and diet intervention Constitutional Vitals: Vital Signs Temp Pulse Resp BP Pulse Ox 97.1 F 85 14 91/55 97 01/18/21 08:00 01/18/21 08:50 01/18/21 08:00 01/18/21 08:50 01/18/21 08:00 Period Temp Pulse Resp BP Sys/Andujar Pulse Ox Last 24 Hr 97.1 F-98.4 F 72-116 10-29 66-115/34-89 82-100 Intake and Output 01/17/21 01/18/21 01/18/21 21:59 05:59 13:59 Intake Total 512 575 54 Balance 512 575 54 weight 160.027 kg Alert and oriented Nonlabored breathing No telemetry events Intake & Output: Intake & Output 01/17/21 01/18/21 01/18/21 21:59 05:59 13:59 Intake Total 512 575 54 Balance 512 575 54 Weight 160.027 kg Intake: IV 272 54 Sodium Chloride 0.9% 250 ml @ 250 20 mls/hr IV .[id number] [facility] Rx#: [id number] Levophed 16 mg In Sodium 22 54 Chloride 0.9% 234 ml @ 10 MCG/ MIN 9.375 mls/hr IV Q24H [facility] Rx #:[id number] Oral 240 575 Other: Meal Lunch Percent of Meal Consumed 100% Feeding Ability Independent Stool Size Large Stool Color Brown Stool Consistency Formed # Bowel Movements 1 # of times incontinent of 0 Bowels OBJ DATA Labs CBC & Chem 7: 01/18/21 06:52 01/18/21 06:51 Labs: Abnormal Lab Results 01/18/21 01/18/2121 06:52 06:51 06:30 RBC 2.32 L Hgb 7.8 L Hct 25.1 L MCV 108.2 H RDW 17.7 H Lymph # (Auto) Sodium 129 L 131 L BUN 32 H 27 H Creatinine 4.7 H 3.9 H Calcium Phosphorus 4.6 H Total Bilirubin Direct Bilirubin 0.4 H 0.4 H AST 40 H Alkaline Phosphatase 157 H 151 H Albumin 2.2 L 2.2 L Globulin 5.8 H 5.5 H Albumin/Globulin Ratio 0.4 L 0.4 L 01/17/21 01/16/21 01/15/21 06:30 05:43 08:08 RBC 2.12 L Hgb 7.2 L Hct 22.6 L MCV 106.6 H RDW 17.2 H Lymph # (Auto) 1.49 L Sodium 130 L 130 L BUN 37 H 27 H Creatinine 4.4 H 3.6 H Calcium 8.5 L Phosphorus Total Bilirubin 1.1 H Direct Bilirubin 0.6 H 0.6 H AST Alkaline Phosphatase 154 H 150 H Albumin 2.3 L 2.7 L Globulin 5.6 H 5.4 H Albumin/Globulin Ratio 0.4 L 0.5 L Meds: Medications Acetaminophen (Acetaminophen 325 Mg Tablet) 650 mg PO Q6HP PRN; Protocol PRN Reason: Per Pain Protocol/Fever > 101 Hydrocodone Bitart/Acetaminophen (Hydrocodone/Apap 10/325mg Tablet) 1 - 2 tab PO Q6HP PRN; Protocol PRN Reason: Pain Last Admin: 01/18/21 06:31 Dose: 1 tab Documented by: Allopurinol (Allopurinol 100 Mg Tablet) 200 mg PO QDAY [facility] Last Admin: 01/17/21 09:24 Dose: 200 mg Documented by: Amiodarone HCl (Amiodarone Hcl 200 Mg Tablet) 200 mg PO QDAY [facility] Last Admin: 01/17/21 09:24 Dose: 200 mg Documented by: Apixaban (Apixaban 5 Mg Tablet) 5 mg PO BID [facility] Last Admin: 01/17/21 20:18 Dose: 5 mg Documented by: Bisacodyl (Bisacodyl 10 Mg Supp.Rect) 10 mg [place] DAILYP PRN PRN Reason: Constipation Calcium Carbonate/Glycine (Calcium Carbonate 500 Mg Tab.Chew) 1,000 mg PO Q6HP PRN PRN Reason: Heartburn Docusate Sodium (Docusate Sodium 100 Mg Capsule) 100 mg PO BID [facility] Last Admin: 01/17/21 20:24 Dose: Not Given Documented by: Folic Acid (Folic Acid 1 Mg Tablet) 1 mg PO QDAY [facility] Last Admin: 01/17/21 09:24 Dose: 1 mg Documented by: Sodium Chloride (Sodium Chloride 0.9%) 250 mls @ 20 mls/hr IV .[id number] [facility] Last Admin: 01/17/21 22:33 Dose: 20 mls/hr Documented by: Norepinephrine Bitartrate 16 (mg/ Sodium Chloride) 250 mls @ 9.375 mls/hr IV Q24H [facility]; Protocol Last Titration: 01/18/21 08:11 Dose: 4 mcg/min, 3.75 mls/hr Documented by: Iron Carb/Multivit/[place]/Folic Acid (Multivit,Ther Iron,Ca,Fa & Min 1 Tablet) 1 tab PO DAILY [facility] Last Admin: 01/17/21 09:24 Dose: 1 tab Documented by: Ketoconazole (Ketoconazole 2% Top Crm 15gm Tube) 1 dose TOPICAL DAILY [facility] Last Admin: 01/17/21 09:02 Dose: Not Given Documented by: Lactulose (Lactulose 20 Gm/30 Ml Oral.Clarice) 10 gm PO DAILYP PRN PRN Reason: Constipation Last Admin: 01/17/21 09:25 Dose: 10 gm Documented by: Levothyroxine Sodium (Levothyroxine 50 Mcg Tablet) 50 mcg PO QAMAC [facility] Last Admin: 01/17/21 07:36 Dose: 50 mcg Documented by: Midodrine (Midodrine 5 Mg Tablet) 10 mg PO TID@0800,1200,1700 [facility] Last Admin: 01/18/21 07:11 Dose: 10 mg Documented by: Naloxone HCl (Naloxone Hcl 0.4 Mg/Ml Vial) 0.1 mg IV Q2MIN PRN PRN Reason: Opiate Reversal Ondansetron HCl (Ondansetron 4 Mg/2 Ml Vial) 4 mg IV Q4HP PRN; Protocol PRN Reason: Nausea And Vomiting Pantoprazole Sodium (Pantoprazole 40 Mg Tablet) 40 mg PO BIDAC [facility] Last Admin: 01/17/21 17:03 Dose: 40 mg Documented by: Polyethylene Glycol (Polyethylene Glycol 3350 17 Gm Packet) 17 gm PO Q8HP PRN PRN Reason: Constipation Last Admin: 01/15/21 08:18 Dose: 17 gm Documented by: Senna (Sennosides 1 Tablet) 2 tab PO HSP PRN PRN Reason: Constipation Sodium Chloride (0.9 % Sodium Chloride 10 Ml Syringe) 10 ml IV Q8 [facility] Last Admin: 01/18/21 05:28 Dose: 10 ml Documented by: Thiamine HCl (Thiamine 100 Mg Tablet) 100 mg PO DAILY [facility] Last Admin: 01/17/21 09:25 Dose: 100 mg Documented by: A/P Narrative A/P Narrative: 60-year-old male with end-stage renal disease, atrial fibrillation, heart failure, pulmonary hypertension and cor pulmonale presents with alteration in speech and dys-coordination. * Circulatory shock likely secondary to antihypertensive use. Gradual clinical improvement noted. Weaning Levophed down to 3 mics today. * Acute change mental status endorgan manifestation due to shock. Fully resolved * Influenza B without significant of acute viral syndrome. Completed Tamiflu * Anemia: Status post 1 unit PRBC transfusion. Hemoglobin 8.6. * ESRD: Continuing hemodialysis per nephrology * Atrial fibrillation rate controlled. On amiodarone/anticoagulation on apixaban * Congestive heart failure, currently well compensated. Ongoing daily fluid removal with hemodialysis * Cor pulmonale * Sleep apnea on CPAP at night * Morbid obesity * DVT prophylaxis on apixaban Plan: * Continue weaning vasopressors as tolerated * HD per nephrology * PT OT nutrition support * Discharge planning Time Spent With Patient Time: Total time spent is greater than 50% in coordination of care (as documented) at patient's floor/unit and/or counseling patient: QUALITY VTE Deep Vein Thrombosis/Pulmonary Embolism Present on Admission: No
[2021-01-18] MEDS: MULTIVIT,THER IRON,CA,FA & MIN 1 TABLET PO SCH (12:53)
[2021-01-18] MEDS: AMIODARONE HCL 200 MG TABLET PO SCH (12:55)
[2021-01-18] MEDS: THIAMINE 100 MG TABLET PO SCH (12:55)
[2021-01-18] MEDS: APIXABAN 5 MG TABLET PO SCH ×2 (12:56→20:31)
[2021-01-18] MEDS: PANTOPRAZOLE 40 MG TABLET PO SCH ×2 (12:56→17:39)
[2021-01-18] MEDS: FOLIC ACID 1 MG TABLET PO SCH (12:56)
[2021-01-18] MEDS: LEVOTHYROXINE 50 MCG TABLET PO SCH (12:57)
[2021-01-18] MEDS: DOCUSATE SODIUM 100 MG CAPSULE PO SCH ×2 (12:57→20:31)
[2021-01-18] MEDS: ALLOPURINOL 100 MG TABLET PO SCH (13:07)
[2021-01-18] MEDS: KETOCONAZOLE 2% TOP CRM 15GM TUBE TOPICAL SCH (13:28)
[2021-01-18] MEDS: NOREPINEPHRINE BITARTRATE 16 MG in 0.9 % SODIUM CHLORIDE 234 ML IV SCH ×2 (15:10→16:31)
[2021-01-18] MEDS: 0.9 % SODIUM CHLORIDE 250 ML IV SCH ×2 (17:42→22:00)
[2021-01-19] MEDS: 0.9 % SODIUM CHLORIDE 10 ML SYRINGE IV SCH ×3 (06:01→22:00)
[2021-01-19] MEDS: HYDROcodone/APAP 10/325MG TABLET PO PRN ×3 (07:07→18:34)
[2021-01-19] MEDS: FOLIC ACID 1 MG TABLET PO SCH (08:32)
[2021-01-19] MEDS: PANTOPRAZOLE 40 MG TABLET PO SCH ×2 (08:32→17:24)
[2021-01-19] MEDS: APIXABAN 5 MG TABLET PO SCH ×2 (08:32→19:56)
[2021-01-19] MEDS: MIDODRINE 5 MG TABLET PO SCH ×3 (08:32→17:23)
[2021-01-19] MEDS: LEVOTHYROXINE 50 MCG TABLET PO SCH (08:32)
[2021-01-19] MEDS: DOCUSATE SODIUM 100 MG CAPSULE PO SCH ×2 (08:32→19:55)
[2021-01-19] MEDS: MULTIVIT,THER IRON,CA,FA & MIN 1 TABLET PO SCH (08:33)
[2021-01-19] MEDS: THIAMINE 100 MG TABLET PO SCH (08:33)
[2021-01-19] MEDS: AMIODARONE HCL 200 MG TABLET PO SCH (08:33)
--- NOTE | 2021-01-19 08:44 | Nephrology Progress Note ---
SUBJECTIVE Subjective Patient information: Note initiated : 01/19/21 at 8:42 am Patient: Branden Espinosa 60 y/o M admitted on 01/14/21 for LOW bp. Chief Complaint: Weakness Pertinent ROS: Constitutional: Present lethargy and weakness Eyes: Absent blurry vision Nose, mouth and throat: Absent nasal congestion and sore throat Cardiovascular: Present edema; Absent chest pain Respiratory: Absent cough and dyspnea Gastrointestinal: Absent nausea and vomiting Integumentary: Present dry skin; Absent rash Neurological: Present weakness; Absent confusion Psychiatric: Absent anxiety and panic attacks Hematologic/Lymphatic: Absent easy bleeding and easy bruising Allergic/Immunologic: Absent tongue swelling and uticaria Constitutional Vitals: Vital Signs Temp Pulse Resp BP Pulse Ox 98.1 F 99 H 21 100/62 95 01/19/21 08:01 01/18/21 11:27 01/19/21 08:01 01/19/21 08:01 01/19/21 08:01 Period Temp Pulse Resp BP Sys/Andujar Pulse Ox Last 24 Hr 97.1 F-98.7 F 84-114 11-30 69-134/40-78 89-100 Intake and Output 01/18/21 01/19/21 01/19/21 20:59 05:59 13:59 Intake Total Balance Weight Intake & Output: Intake & Output 01/18/21 01/19/21 01/19/21 20:59 05:59 13:59 Intake Total Balance Weight Intake: IV Levophed 16 mg In Sodium Chloride 0.9% 234 ml @ 10 MCG/ MIN 9.375 mls/hr IV Q24H [facility] Rx #:[id number] Oral Other: Meal Percent of Meal Consumed Feeding Ability Stool Size Stool Color Stool Consistency # Bowel Movements # of times incontinent of Bowels Additional findings Additional findings: General appearance: morbidly obese and no acute distress Head exam: Present atraumatic and normal inspection Respiratory exam: Present decreased breath sounds Cardiovascular exam: Present irregular rhythm GI/Abdominal exam: Present soft Extremities exam: Present pedal edema Neurological exam: Present alert and oriented X3 Psychiatric exam: Present normal affect and normal mood Skin exam: Present pallor A/P Assessment and plan (1) ESRD (end stage renal disease) on dialysis: Assessment and plan: Branden Espinosa is a 60-year-old male with end-stage renal disease on chronic hemodialysis (through right IJ tunneled hemodialysis catheter, on TTS), atrial fibrillation, congestive heart failure, sleep apnea on CPAP, pulmonary hypertension, cor pulmonale, morbid obesity admitted on 01/13/21. He presented to ED for weakness. In ED, he was hypotensive with anemia, hyponatremia and hypokalemia. Influenza B was positive. He received 500 mL of NS and was admitted to ICU on IV pressors. End-stage renal disease on chronic hemodialysis. Chronic anemia due to ESRD. Aranesp 100 mcg IV x 1 on 01/16/21 for chronic anemia due to ESRD. 1 unit PRBC for symptomatic anemia (hypotension) with Hb 7.2 on 01/17/21. Influenza type B. Persistent hypotension, improved. Workup: Echo on 01/14/21: LVEF 55%. Progress: Last hemodialysis on 01/18/21. Off IV pressors since 01/18/21. Plan: Continue hemodialysis on TTS schedule. Status: Chronic (2) Anemia in ESRD (end-stage renal disease): Status: Chronic (3) Hyponatremia with decreased serum osmolality: Status: Chronic Time Spent With Patient Time: Total time spent is greater than 50% in coordination of care (as documented) at patient's floor/unit and/or counseling patient:
[2021-01-19] MEDS: KETOCONAZOLE 2% TOP CRM 15GM TUBE TOPICAL SCH (08:54)
[2021-01-19] MEDS: ALLOPURINOL 100 MG TABLET PO SCH (08:54)
--- NOTE | 2021-01-19 12:45 | Internal Med Progress Note ---
SUBJECTIVE Subjective Patient information: Note initiated : 01/19/21 at 12:43 pm Service Date, if different from initiated Date: [] Patient: Branden Espinosa a 60 y/o M admitted on 01/14/21 for LOW bp. Chief Complaint: [] Interval history: Mr. Espinosa is a 60 year old M with a history of end-stage renal disease on hemodialysis since October, atrial fibrillation, congestive heart failure, pulmonary hypertension and cor pulmonale, morbid obesity not feeling well with slurred speech. Patient states that he is feeling well up until he got his 9 PM medications. He notes that there were medications given at that time which he did not recognize. About 1 hour later at 10 PM last evening his coordination became poor, felt he had poor strength in his hands, his speech became slurred and slowed. He is transported to the ED. Patient feels that he received an inappropriate medication which may be affecting him. Evaluation at that time showed his s peech a little slurred but equal strength. He received 500 mL of NS for low blood pressures, with systolics 70s80s. He was mildly hypokalemic which was repleted without change in symptoms. He received his usual hemodialysis on Wednesday, onset of symptoms were Wednesday evening. In spite of observation, the patient did not fully improve and he remained with low blood pressures (his normal systolic he tells me runs from 83-113). He still feels his speech is slightly slurred. Screening for respiratory viruses prior to admission showed a positive influenza B antigen. Patient is being admitted for further evaluation of hypotension, mild neurologic symptoms possibly secondary to inadvertent medication toxicity or influenza. 01/14 No complaints this morning. Remains on peripheral norepinephrine to maintain blood pressure. No fevers, no chills. No respiratory symptoms, no myalgias. 01/15-patient remains on Levophed at 12 mics. Nephrology on board. Ongoing ultrafiltration/dialysis per nephrology. Feels lightheaded with systolics around mid 80s. Started on midodrine.Unable to participate physical therapy due to profound weakness. Patient has been bedbound for the last few months. Case management coordinating transfer back to [facility] once patient clinically stable. 01/16-continue to wean Levophed. Map at goal. Currently on 5 mics. Improved rate controlled following digoxin load. Ongoing hemodialysis. Patient feels slightly dizzy but better than previous day. White count stable at 7.7. Hemoglobin 7.7, sodium 130. No overnight fever chills. Anticipate discharge on ce systolic stable and off pressors. Likely in 48 hours. On Tamiflu. Received Aranesp today. 01/17-patient remains on Levophed at 10 mics. However gradually improving systolics. 1 unit PRBC transfusion today. Denies lightheadedness dizziness. No telemetry events. Ongoing hemodialysis 01/18-patient's hemodynamics improving now down to 3 mics of Levophed. Ongoing hemodialysis. Systolics mid 80s. However minimally symptomatic. Continue to wean as tolerated. No evidence of sepsis, white count 6000. Nephrology on board. Continue therapies and diet intervention 01/19-patient off pressors since early this morning. Systolics mid 80s. Asymptomatic. Doing well. Anticipate discharge in 24 hours if remains hemodynamically stable. Nephrology on board. Constitutional Vitals: Vital Signs Temp Pulse Resp BP Pulse Ox 98.1 F 99 H 27 H 103/61 94 01/19/21 12:01 01/18/21 11:27 01/19/21 12:01 01/19/21 12:01 01/19/21 12:01 Period Temp Pulse Resp BP Sys/Andujar Pulse Ox Last 24 Hr 98.1 F-98.7 F 11-30 69-134/40-78 85-100 Intake and Output 01/18/21 01/19/21 01/19/21 20:59 05:59 13:59 Intake Total 600 Output Total 625 Balance -25 Weight Alert oriented Nonlabored breathing Nondistended abdomen No telemetry events Intake & Output: Intake & Output 01/18/21 01/19/21 01/19/21 20:59 05:59 13:59 Intake Total 600 Output Total 625 Balance -25 Weight Intake: IV Levophed 16 mg In Sodium Chloride 0.9% 234 ml @ 10 MCG/ MIN 9.375 mls/hr IV Q24H [facility] Rx #:[id number] Oral 600 Output: Void Amount 625 Other: Meal Breakfast Percent of Meal Consumed 100% Feeding Ability Independent Urine Appearance Clear Urine Color Pale Stool Size Stool Color Stool Consistency # Bowel Movements # of times incontinent of Bowels OBJ DATA Labs CBC & Chem 7: 01/18/21 06:52 01/18/21 06:51 Labs: Abnormal Lab Results 01/18/21 01/18/2101/17/21 06:52 06:51 06:30 RBC 2.32 L Hgb 7.8 L Hct 25.1 L MCV 108.2 H RDW 17.7 H Lymph # (Auto) Sodium 129 L 131 L BUN 32 H 27 H Creatinine 4.7 H 3.9 H Phosphorus 4.6 H Direct Bilirubin 0.4 H 0.4 H AST 40 H Alkaline Phosphatase 157 H 151 H Albumin 2.2 L 2.2 L Globulin 5.8 H 5.5 H Albumin/Globulin Ratio 0.4 L 0.4 L 01/17/21 06:30 RBC 2.12 L Hgb 7.2 L Hct 22.6 L MCV 106.6 H RDW 17.2 H Lymph # (Auto) 1.49 L Sodium BUN Creatinine Phosphorus Direct Bilirubin AST Alkaline Phosphatase Albumin Globulin Albumin/Globulin Ratio Meds: Medications Acetaminophen (Acetaminophen 325 Mg Tablet) 650 mg PO Q6HP PRN; Protocol PRN Reason: Per Pain Protocol/Fever > 101 Hydrocodone Bitart/Acetaminophen (Hydrocodone/Apap 10/325mg Tablet) 1 - 2 tab PO Q6HP PRN; Protocol PRN Reason: Pain Last Admin: 01/19/21 12:31 Dose: 1 tab Documented by: Allopurinol (Allopurinol 100 Mg Tablet) 200 mg PO QDAY [facility] Last Admin: 01/19/21 08:54 Dose: Not Given Documented by: Amiodarone HCl (Amiodarone Hcl 200 Mg Tablet) 200 mg PO QDAY [facility] Last Admin: 01/19/21 08:33 Dose: 200 mg Documented by: Apixaban (Apixaban 5 Mg Tablet) 5 mg PO BID [facility] Last Admin: 01/19/21 08:32 Dose: 5 mg Documented by: Bisacodyl (Bisacodyl 10 Mg Supp.Rect) 10 mg [place] DAILYP PRN PRN Reason: Constipation Calcium Carbonate/Glycine (Calcium Carbonate 500 Mg Tab.Chew) 1,000 mg PO Q6HP PRN PRN Reason: Heartburn Docusate Sodium (Docusate Sodium 100 Mg Capsule) 100 mg PO BID [facility] Last Admin: 01/19/21 08:32 Dose: 100 mg Documented by: Folic Acid (Folic Acid 1 Mg Tablet) 1 mg PO QDAY [facility] Last Admin: 01/19/21 08:32 Dose: 1 mg Documented by: Sodium Chloride (Sodium Chloride 0.9%) 250 mls @ 20 mls/hr IV .[id number] [facility] Last Admin: 01/18/21 22:00 Dose: Not Given Documented by: Norepinephrine Bitartrate 16 (mg/ Sodium Chloride) 250 mls @ 9.375 mls/hr IV Q24H [facility]; Protocol Last Titration: 01/18/21 17:00 Dose: 0 mcg/min, 0 mls/hr Documented by: Iron Carb/Multivit/[place]/Folic Acid (Multivit,Ther Iron,Ca,Fa & Min 1 Tablet) 1 tab PO DAILY [facility] Last Admin: 01/19/21 08:33 Dose: 1 tab Documented by: Ketoconazole (Ketoconazole 2% Top Crm 15gm Tube) 1 dose TOPICAL DAILY [facility] Last Admin: 01/19/21 08:54 Dose: Not Given Documented by: Lactulose (Lactulose 20 Gm/30 Ml Oral.Clarice) 10 gm PO DAILYP PRN PRN Reason: Constipation Last Admin: 01/17/21 09:25 Dose: 10 gm Documented by: Levothyroxine Sodium (Levothyroxine 50 Mcg Tablet) 50 mcg PO QAMAC [facility] Last Admin: 01/19/21 08:32 Dose: 50 mcg Documented by: Midodrine (Midodrine 5 Mg Tablet) 10 mg PO TID@0800,1200,1700 [facility] Last Admin: 01/19/21 12:28 Dose: 10 mg Documented by: Naloxone HCl (Naloxone Hcl 0.4 Mg/Ml Vial) 0.1 mg IV Q2MIN PRN PRN Reason: Opiate Reversal Ondansetron HCl (Ondansetron 4 Mg/2 Ml Vial) 4 mg IV Q4HP PRN; Protocol PRN Reason: Nausea And Vomiting Pantoprazole Sodium (Pantoprazole 40 Mg Tablet) 40 mg PO BIDAC [facility] Last Admin: 01/19/21 08:32 Dose: 40 mg Documented by: Polyethylene Glycol (Polyethylene Glycol 3350 17 Gm Packet) 17 gm PO Q8HP PRN PRN Reason: Constipation Last Admin: 01/15/21 08:18 Dose: 17 gm Documented by: Senna (Sennosides 1 Tablet) 2 tab PO HSP PRN PRN Reason: Constipation Sodium Chloride (0.9 % Sodium Chloride 10 Ml Syringe) 10 ml IV Q8 [facility] Last Admin: 01/19/21 06:01 Dose: 10 ml Documented by: Thiamine HCl (Thiamine 100 Mg Tablet) 100 mg PO DAILY [facility] Last Admin: 01/19/21 08:33 Dose: 100 mg Documented by: A/P Assessment and plan (1) ESRD (end stage renal disease) on dialysis: Assessment and plan: Branden Espinosa is a 60-year-old male with end-stage renal disease on chronic hemodialysis (through right IJ tunneled hemodialysis catheter, on TTS), atrial fibrillation, congestive heart failure, sleep apnea on CPAP, pulmonary hypertension, cor pulmonale, morbid obesity admitted on 01/13/21. He presented to ED for weakness. In ED, he was hypotensive with anemia, hyponatremia and hypokalemia. Influenza B was positive. He received 500 mL of NS and was admitted to ICU on IV pressors. End-stage renal disease on chronic hemodialysis. Chronic anemia due to ESRD. Aranesp 100 mcg IV x 1 on 01/16/21 for chronic anemia due to ESRD. 1 unit PRBC for symptomatic anemia (hypotension) with Hb 7.2 on 01/17/21. Influenza type B. Persistent hypotension, improved. Workup: Echo on 01/14/21: LVEF 55%. Progress: Last hemodialysis on 01/18/21. Off IV pressors since 01/18/21. Plan: Continue hemodialysis on TTS schedule. Status: Chronic (2) Anemia in ESRD (end-stage renal disease): Status: Chronic (3) Hyponatremia with decreased serum osmolality: Status: Chronic Narrative A/P Narrative: 60-year-old male with end-stage renal disease, atrial fibrillation, heart failure, pulmonary hypertension and cor pulmonale presents with alteration in speech and dys-coordination. * Circulatory shock likely secondary to antihypertensive administration at care facility. Now off vasopressors. Continue midodrine. * Acute change mental status endorgan manifestation due to shock. Fully resolved * Influenza B without significant of acute viral syndrome. Completed Tamiflu * Anemia: Status post 1 unit PRBC transfusion. Hemoglobin stable managed by nephrology * ESRD: Continuing hemodialysis per nephrology * Atrial fibrillation rate controlled. On amiodarone/anticoagulation on apixaban * Congestive heart failure, currently well compensated. Ongoing daily fluid removal with hemodialysis * Cor pulmonale * Sleep apnea on CPAP at night * Morbid obesity * DVT prophylaxis on apixaban Plan: * HD per nephrology * Pre-existing medical condition management home medications as above * PT OT nutrition support * Discharge planning likely SNF in 24 hours Time Spent With Patient Time: Total time spent is greater than 50% in coordination of care (as documented) at patient's floor/unit and/or counseling patient: QUALITY VTE Deep Vein Thrombosis/Pulmonary Embolism Present on Admission: No
[2021-01-19] MEDS: 0.9 % SODIUM CHLORIDE 250 ML IV SCH ×2 (14:08→18:23)
[2021-01-19] MEDS: NOREPINEPHRINE BITARTRATE 16 MG in 0.9 % SODIUM CHLORIDE 234 ML IV SCH (15:18)
[2021-01-19] MEDS ORDERED: POLYETHYLENE GLYCOL 3350 17 GM PACKET PO PRN (17:29)
[2021-01-19] MEDS ORDERED: LACTULOSE 20 GM/30 ML ORAL.SOL PO PRN (17:29)
[2021-01-19] MEDS ORDERED: CALCIUM CARBONATE 500 MG TAB.CHEW PO PRN (17:29)
[2021-01-19] MEDS ORDERED: NALOXONE HCL 0.4 MG/ML VIAL IV PRN (17:29)
[2021-01-19] MEDS ORDERED: ACETAMINOPHEN 325 MG TABLET PO PRN (17:29)
[2021-01-19] MEDS ORDERED: SENNOSIDES 1 TABLET PO PRN (17:29)
[2021-01-19] MEDS ORDERED: BISACODYL 10 MG SUPP.RECT PR PRN (17:29)
[2021-01-19] MEDS ORDERED: ONDANSETRON 4 MG/2 ML VIAL IV PRN (17:29)
[2021-01-19] MEDS ORDERED: HYDROcodone/APAP 10/325MG TABLET PO ONE (18:41)
[2021-01-20] MEDS: 0.9 % SODIUM CHLORIDE 250 ML IV SCH (05:59)
--- NOTE | 2021-01-20 07:24 | Nephrology Progress Note ---
SUBJECTIVE Subjective Patient information: Note initiated : 01/20/21 at 7:24 am Patient: Branden Espinosa 60 y/o M admitted on 01/14/21 for LOW bp. Chief Complaint: Weakness Pertinent ROS: Constitutional: Present lethargy and weakness Eyes: Absent blurry vision Nose, mouth and throat: Absent nasal congestion and sore throat Cardiovascular: Present edema; Absent chest pain Respiratory: Absent cough and dyspnea Gastrointestinal: Absent nausea and vomiting Integumentary: Present dry skin; Absent rash Neurological: Present weakness; Absent confusion Psychiatric: Absent anxiety and panic attacks Hematologic/Lymphatic: Absent easy bleeding and easy bruising Allergic/Immunologic: Absent tongue swelling and uticaria Constitutional Vitals: Vital Signs Temp Pulse Resp BP Pulse Ox 98.4 F 99 H 22 108/69 94 01/20/21 04:01 01/18/21 11:27 01/20/21 05:58 01/20/21 04:01 01/20/21 05:58 Period Temp Pulse Resp BP Sys/Andujar Pulse Ox Last 24 Hr 98.1 F-98.8 F 11-03 73-110/42-84 85-99 Intake and Output 01/19/21 01/20/21 01/20/21 21:59 05:59 13:59 Intake Total 90 800 Balance 90 800 Weight 253 lb 12.8 oz Intake & Output: Intake & Output 01/19/21 01/20/21 01/20/21 21:59 05:59 13:59 Intake Total 90 800 Balance 90 800 Weight 253 lb 12.8 oz Intake: Oral 90 800 Other: Meal Dinner Percent of Meal Consumed 50% Feeding Ability Independent Stool Size Moderate Stool Color Brown Stool Consistency Soft # Bowel Movements 1 Additional findings Additional findings: General appearance: morbidly obese and no acute distress Head exam: Present atraumatic and normal inspection Respiratory exam: Present decreased breath sounds Cardiovascular exam: Present irregular rhythm GI/Abdominal exam: Present soft Extremities exam: Present pedal edema Neurological exam: Present alert and oriented X3 Psychiatric exam: Present normal affect and normal mood Skin exam: Present pallor A/P Assessment and plan (1) ESRD (end stage renal disease) on dialysis: Assessment and plan: Branden Espinosa is a 60-year-old male with end-stage renal disease on chronic hemodialysis (through right IJ tunneled hemodialysis catheter, on TTS), atrial fibrillation, congestive heart failure, sleep apnea on CPAP, pulmonary hypertension, cor pulmonale, morbid obesity admitted on 01/13/21. He presented to ED for weakness. In ED, he was hypotensive with anemia, hyponat remia and hypokalemia. Influenza B was positive. He received 500 mL of NS and was admitted to ICU on IV pressors. End-stage renal disease on chronic hemodialysis. Chronic anemia due to ESRD. Aranesp 100 mcg IV x 1 on 01/16/21 for chronic anemia due to ESRD. 1 unit PRBC for symptomatic anemia (hypotension) with Hb 7.2 on 01/17/21. Influenza type B. Persistent hypotension, improved. Workup: Echo on 01/14/21: LVEF 55%. Progress: Last hemodialysis on 01/18/21. Off IV pressors since 01/18/21. Plan: Continue hemodialysis on TTS schedule. Status: Chronic (2) Anemia in ESRD (end-stage renal disease): Status: Chronic (3) Hyponatremia with decreased serum osmolality: Status: Chronic Time Spent With Patient Time: Total time spent is greater than 50% in coordination of care (as documented) at patient's floor/unit and/or counseling patient:
[2021-01-20] MEDS ORDERED: PANTOPRAZOLE 40 MG TABLET PO SCH (07:30)
[2021-01-20] MEDS ORDERED: LEVOTHYROXINE 50 MCG TABLET PO SCH (07:30)
[2021-01-20] MEDS: HYDROcodone/APAP 10/325MG TABLET PO PRN (07:41)
[2021-01-20] MEDS: MIDODRINE 5 MG TABLET PO SCH ×2 (07:42→10:56)
[2021-01-20] MEDS: 0.9 % SODIUM CHLORIDE 10 ML SYRINGE IV SCH (07:43)
[2021-01-20] MEDS: APIXABAN 5 MG TABLET PO SCH (08:57)
[2021-01-20] MEDS: DOCUSATE SODIUM 100 MG CAPSULE PO SCH (08:57)
[2021-01-20] MEDS ORDERED: ALLOPURINOL 100 MG TABLET PO SCH (09:00)
[2021-01-20] MEDS ORDERED: MULTIVIT,THER IRON,CA,FA & MIN 1 TABLET PO SCH (09:00)
[2021-01-20] MEDS ORDERED: KETOCONAZOLE 2% TOP CRM 15GM TUBE TOPICAL SCH (09:00)
[2021-01-20] MEDS ORDERED: FOLIC ACID 1 MG TABLET PO SCH (09:00)
[2021-01-20] MEDS ORDERED: THIAMINE 100 MG TABLET PO SCH (09:00)
[2021-01-20] MEDS ORDERED: AMIODARONE HCL 200 MG TABLET PO SCH (09:00)
--- NOTE | 2021-01-20 10:38 | Discharge Summary ---
Discharge Provider Provider Patient information: Note initiated : 01/20/21 at 10:35 am Service Date, if different from initiated Date: [] Patient: Branden Espinosa 60 y/o M admitted on 01/14/21 for LOW bp. Discharge diagnosis * Circulatory shock likely secondary to antihypertensive administration at care facility. Now off vasopressors. Continue midodrine. Discharging to SNF * Acute change mental status endorgan manifestation due to shock. Fully resolved * Influenza B without significant of acute viral syndrome. Completed Tamiflu * Anemia: Status post 1 unit PRBC transfusion. Hemoglobin stable managed by nephrology * ESRD: Continuing hemodialysis per nephrology * Atrial fibrillation rate controlled. On amiodarone/anticoagulation on apixaban * Congestive heart failure, currently well compensated. Ongoing daily fluid removal with hemodialysis * Cor pulmonale * Sleep apnea on CPAP at night * Morbid obesity Brief hospital course Mr. Espinosa is a 60 year old M with a history of end-stage renal disease on hemodialysis since October, atrial fibrillation, congestive heart failure, pulmonary hypertension and cor pulmonale, morbid obesity not feeling well with slurred speech. Patient states that he is feeling well up until he got his 9 PM medications. He notes that there were medications given at that time which he did not recognize. About 1 hour later at 10 PM last evening his coordination became poor, felt he had poor strength in his hands, his speech became slurred and slowed. He is transported to the ED. Patient feels that he received an inappropriate medication which may be affecting him. Evaluation at that time showed his speech a little slurred but equal strength. He received 500 mL of NS for low blood pressures, with systolics 70s80s. He was mildly hypokalemic which was repleted without change in symptoms. He received his usual hemodialysis on Wednesday, onset of symptoms were Wednesday evening. In spite of observation, the patient did not fully improve and he remained with low blood pressures (his normal systolic he tells me runs from 83-113). He still feels his speech is slightly slurred. Screening for respiratory viruses prior to admission showed a positive influenza B antigen. Patient is being ad mitted for further evaluation of hypotension, mild neurologic symptoms possibly secondary to inadvertent medication toxicity or influenza. 01/14 No complaints this morning. Remains on peripheral norepinephrine to maintain blood pressure. No fevers, no chills. No respiratory symptoms, no myalgias. 01/15-patient remains on Levophed at 12 mics. Nephrology on board. Ongoing ultrafiltration/dialysis per nephrology. Feels lightheaded with systolics around mid 80s. Started on midodrine.Unable to participate physical therapy due to profound weakness. Patient has been bedbound for the last few months. Case management coordinating transfer back to [facility] once patient clinically stable. 01/16-continue to wean Levophed. Map at goal. Currently on 5 mics. Improved rate controlled following digoxin load. Ongoing hemodialysis. Patient feels slightly dizzy but better than previous day. White count stable at 7.7. Hemoglobin 7.7, sodium 130. No overnight fever chills. Anticipate discharge once systolic stable and off pressors. Likely in 48 hours. On Tamiflu. Received Aranesp today. 01/17-patient remains on Levophed at 10 mics. However gradually improving systolics. 1 unit PRBC transfusion today. Denies lightheadedness dizziness. No telemetry events. Ongoing hemodialysis 01/18-patient's hemodynamics improving now down to 3 mics of Levophed. Ongoing hemodialysis. Systolics mid 80s. However minimally symptomatic. Continue to wean as tolerated. No evidence of sepsis, white count 6000. Nephrology on board. Continue therapies and diet intervention 01/19-patient off pressors since early this morning. Systolics mid 80s. Asymptomatic. Doing well. Anticipate discharge in 24 hours if remains hemodynamically stable. Nephrology on board. 01/20-patient doing well. Now off pressors. Feels at baseline. Discharging to [facility] with advised to continue following up with nephrology/scheduled hemodialysis Wednesday. No overnight events or concerns per staff. No fever chills. Stable hemodynamics. Date of admission: 01/14/21 12:58 Discharge date: 01/20/21 Primary care physician: Nikolas Whitfield MD Consults: 01/13/21 07:58 Consult to Physician [CONS] Stat Comment: Consulting Provider: Lady De León Reason For Exam: Physician to Consult 01/14/21 15:38 Consult to Physician [CONS] Routine Comment: wounds to sacrogluteal area, left inner thigh Consulting Provider: Jairon Mckeon Reason For Exam: Physician to Consult Discharge Meds Discharge Medications Home Medications Low Air Loss Mattress 1 each .ROUTE DAILY 04/20/18 [History Confirmed 01/13/21 Last Taken 1 Month Ago ~03/20/18] multivitamin,[id number] 1 tab PO QDAY 06/10/18 [History Confirmed 01/13/21 Last Taken Unknown] Bobbi Nguyễn (Large) #1 ea 12/28/19 [Rx Confirmed 01/13/21 Last Taken Unknown] allopurinol 100 mg tablet 200 mg PO QDAY #60 tab 06/06/20 [Rx Confirmed 01/13/21 Last Taken Unknown] apixaban 5 mg tablet 5 mg PO BID #180 tab 07/04/20 [Rx Confirmed 01/13/21 Last Taken Unknown] CPAP Mask #1 ea 09/12/20 [Rx Confirmed 01/13/21 Last Taken Unknown] metolazone 2.5 mg tablet 2.5 mg PO Q OTHER DAY #90 tab 09/16/20 [Rx Confirmed 01/13/21 Last Taken Unknown] hydrocodone 10 mg-acetaminophen 325 mg tablet 2 tab PO Q6H PRN #24 tab 01/04/21 [Rx Confirmed 01/13/21 Last Taken Unknown] ketoconazole 1 applic TOPICAL DAILY 01/12/21 [History Confirmed 01/13/21 Last Taken Unknown] oxygen-air delivery systems 01/12/21 [History Confirmed 01/13/21 Last Taken Unknown] amiodarone 200 mg PO QDAY 01/13/21 [History Confirmed 01/13/21 Last Taken Unknown] bisacodyl 10 mg SD QDAY PRN 01/13/21 [History Confirmed 01/13/21 Last Taken Unknown] calcium carbonate 1,000 mg PO Q6HP PRN 01/13/21 [History Confirmed 01/13/21 Last Taken Unknown] docusate sodium [Colace] 100 mg PO QDAY 01/13/21 [History Confirmed 01/13/21 Last Taken Unknown] folic acid 1 mg PO QDAY 01/13/21 [History Confirmed 01/13/21 Last Taken Unknown] levothyroxine 50 mcg PO QDAY 01/13/21 [History Confirmed 01/13/21 Last Taken Unknown] loperamide 2 mg PO Q4H PRN 01/13/21 [History Confirmed 01/13/21 Last Taken Unknown] midodrine 10 mg PO TID 01/13/21 [History Confirmed 01/13/21 Last Taken Unknown] pantoprazole 40 mg PO BID 01/13/21 [History Confirmed 01/13/21 Last Taken Unknown] polyethylene glycol 3350 17 g PO Q8HP PRN 01/13/21 [History Confirmed 01/13/21 Last Taken Unknown] thiamine HCl (vitamin B1) 100 mg PO QDAY 01/13/21 [History Confirmed 01/13/21 Last Taken Unknown] COURSE Hospital Course Hospital course: . Discharge diagnosis: Circulatory shock Time Spent with Patient Time attestation: Total time spent providing and/or coordinating discharge services: EXAM Constitutional Vitals: Temp Pulse Resp BP Pulse Ox 98.4 F 99 H 28 H 100/65 92 01/20/21 04:01 01/18/21 11:27 01/20/21 10:03 01/20/21 10:00 01/20/21 10:03 Discharge Plan Patient/Caregiver Discharge Instructions Activity: increase activity as tolerated Diet: Low Sodium (2gm) Activity Restrictions/Additional Instructions: Dr. Mckeon will round on patient for his wounds at [facility] on his next rounds there. Continue dialysis as scheduled Wednesday Follow-up PCP in 5 to 7 days Aggressive PT OT/continue nutrition support at [facility]. Prescriptions: Continued allopurinol 100 mg tablet 200 mg PO QDAY Qty: 60 RF: 11 Eliquis 5 mg tablet 5 mg PO BID Qty: 180 RF: 1 metolazone 2.5 mg tablet 2.5 mg PO Q OTHER DAY Qty: 90 RF: 3 hydrocodone-acetaminophen 10-325 mg tablet 2 tab PO Q6H PRN (Reason: Pain) Qty: 24 RF: 0 (DME) Roho Cushion (Large) Qty: 1 RF: 0 (DME) CPAP Mask Qty: 1 RF: 0 multivitamin,[id number] [Complete Multivitamin] tablet 1 tab PO QDAY RF: 0 Low Air Loss Mattress 1 each .Route DAILY RF: 0 ketoconazole 2 % Cream 1 applic TOPICAL DAILY RF: 0 (DME) oxygen-air delivery systems RF: 0 loperamide 2 mg Capsule 2 mg PO Q4H PRN (Reason: Diarrhea) RF: 0 polyethylene glycol 3350 17 gram Powder In Packet 17 g PO Q8HP PRN (Reason: Constipation) RF: 0 amiodarone 200 mg Tablet 200 mg PO QDAY RF: 0 thiamine HCl (vitamin B1) 100 mg Tablet 100 mg PO QDAY RF: 0 levothyroxine 50 mcg Tablet 50 mcg PO QDAY RF: 0 bisacodyl 10 mg Suppository 10 mg SD QDAY PRN (Reason: Constipation) RF: 0 pantoprazole 40 mg Tablet,Delayed Release (Dr/Ec) 40 mg PO BID RF: 0 docusate sodium [Colace] 100 mg Capsule 100 mg PO QDAY RF: 0 folic acid 1 mg Tablet 1 mg PO QDAY RF: 0 calcium carbonate 500 mg calcium (1,250 mg) Tablet,Chewable 1,000 mg PO Q6HP PRN (Reason: Heartburn) RF: 0 midodrine 10 mg Tablet 10 mg PO TID RF: 0 Other Ambulatory Orders: Wound Care Instructions (CONT) Location: None Selected Ordered By: Jairon Mckeon OT Discharge Order (Routine) Facility: [facility] - Location: Conversion-Halfway Ordered By: Jordin Méndez Physical Therapy at Discharge - General (Routine) Facility: [facility] - Location: Conversion-Halfway Ordered By: Jordin Méndez Follow Up Plan Follow up with: Nikolas Whitfield MD [Primary Care Provider] - Patient Disposition: Xfer SNF Prognosis: Fair Rehab Potential: Fair I certify that the patient requires SNF services: Yes Overall status at discharge: patient is progressing back to baseline Discharge Orders: Discharge Order (Routine); Ordered 01/20/21 Ordered By: Jordin Méndez QUALITY VTE Deep Vein Thrombosis/Pulmonary Embolism Present on Admission: No
[2021-01-20] MEDS ORDERED: NOREPINEPHRINE BITARTRATE 16 MG in 0.9 % SODIUM CHLORIDE 234 ML IV PRN (16:00)
== END 2021-01-20 11:10 | DRG 291 ==
LOC: ED 23:33 → ICU 23:33
PROVIDERS: ADMIT Internal Medicine; ATTEND Internal Medicine